=== PATIENT | male | born 1955 | race Caucasian/White ===

== ENCOUNTER 2019-01-07 08:17 | Inpatient (IN) | payer MEDICAID, SELFPAY ==
[2019-01-07] VITALS (24 sets, daily range): BP systolic 125–155; BP diastolic 70–92; PULSE 83–105; RESP 2–33; TEMP 36.4–37.2; O2SAT 92–99
--- NOTE | 2019-01-07 08:25 | DI.RAD_ITS ---
SYMPTOM/DIAGNOSIS: COUGH, SHORTNESS OF BREATH PORTABLE CHEST: Comparison is made with 27 Aug 2013. The cardiac and mediastinal contours have a normal appearance. The lungs are hyperinflated. There is minimal blunting at the costophrenic angles which appears chronic. No superimposed infiltrate, effusion or pulmonary edema is seen. IMPRESSION: COPD. No acute abnormality.
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
[2019-01-07] MEDS: Albuterol/Ipratropium 3 ML UPD VIAL UPD ×5 (08:31→23:23)
[2019-01-07 08:36] LABS: Abs Immature Grans 0.03 k/cumm (0.0-0.09); Absolute Eosinophil Count 1.01 k/cumm (0.0-0.7); Absolute Lymphocyte Count 2.58 k/cumm (1.2-3.4); Absolute Monocyte Count 0.97 k/cumm (0.11-0.7); Basophils % 0.5; Eosinophils % 9.1; HCT 43.5 % (40.0-50.0); HGB 13.1 g/dL (13.5-17.5); Immature Grans % 0.3; Lymphocytes % 23.3; Mean Corp. HGB Concentration 30.1 g/dL (32.0-36.0); Mean Corpuscular Hemoglobin 27.2 pg (27.0-33.0); Mean Corpuscular Volume 90.4 fL (80-95); Mean Platelet Volume 8.7 fL (8.0-11.0); Monocytes % 8.8; Platelet Count 362 x1000/uL (130-400); RBC 4.81 m/cumm (4.50-6.00); White Blood Cell Count 11.06 k/cumm (4.4-10.8)
[2019-01-07 08:38] LABS: Absolute Basophil Count 0.06 k/cumm (0.0-0.2); Absolute Neutrophil Count 6.41 k/cumm (1.2-6.7)
--- NOTE | 2019-01-07 08:45 | DI.VRAD_ITS ---
EXAM: XR Chest, 1 View EXAM DATE/TIME: 01/07/2019 8:39 AM CLINICAL HISTORY: 63 years old, male; Shortness of breath; Patient HX: SOB TECHNIQUE: Imaging protocol: XR of the chest, 1 view. COMPARISON: CR CHEST 2 VIEWS PA,LAT 08/27/2013 9:29 AM FINDINGS: Lungs: Hyperinflation compatible with COPD Pleural space: Unremarkable. No pleural effusion. No pneumothorax. Heart/Mediastinum: Unremarkable. No cardiomegaly. Bones/joints: Unremarkable. IMPRESSION: No acute findings COPD Dictated and Authenticated by: Daniel Arriaga MD. Ordering:ERNIE Uriostegui MD
[2019-01-07 09:01] LABS: ALT 17 U/L (12-78); AST < 5 U/L (15-37); Albumin 3.9 g/dL (3.4-5.0); Alkaline Phosphatase 108 U/L (46-116); BUN 17 mg/dL (7-18); Bilirubin, Total 0.2 mg/dL (0.2-1.0); CREATININE 0.56 mg/dL (0.70-1.30); Calcium 9.2 mg/dL (8.5-10.1); Chloride 106 mmol/L (98-107); Glucose 106 mg/dL (70-100); Magnesium 1.8 mg/dL (1.8-2.4); NT-proBNP 57 pg/mL; Potassium 3.9 mmol/L (3.5-5.1); Sodium 144 mmol/L (136-145); Total Protein 7.1 g/dL (6.4-8.2); Troponin I < 0.05 ng/mL (0.00-0.06)
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
[2019-01-07] MEDS: cefTRIAXone 1 GM/50 ML BAG IVPB (09:33)
--- NOTE | 2019-01-07 09:37 | NUR.NOTE ---
pt medicated as per mdo iv antibiotics infusing Nursing Note:
[2019-01-07] MEDS: Normal Saline 500 ML IV (11:15)
[2019-01-07] MEDS: Normal Saline Flush 10 ML SYR IVP ×4 (11:15→23:24)
[2019-01-07] MEDS: DOXYCYCLINE 100 MG in Normal Saline 100 ML IVPB ×2 (11:18→21:53)
[2019-01-07] MEDS: Enoxaparin 40 MG/0.4 ML SYR SC (13:18)
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
--- NOTE | 2019-01-07 14:11 | NUR.NOTE ---
Nursing Note: Patient was noted to be using a ProAir inhaler by respiratory therapy. When this RN asked the patient about the inhaler he became very defensive and angry stating that no one was going to take it from him and that he would before we got it to him. Clinical coordinator Stephanie Aponte RN notified of the above
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
[2019-01-07] MEDS: Benzonatate 200 MG CAP PO ×2 (15:00→21:53)
--- NOTE | 2019-01-07 15:02 | NUR.NOTE ---
Nursing Note: Patient told this RN that he will not use his Albuterol inhaler and that he will ring for an Albuterol updraft when he needs one. Patient states that he does not lie and therefore will not use the inhaler but that he will not allow this RN to take the inhaler from the room. Patient states it makes him feel better to have it at the bedside
[2019-01-07] MEDS: methylPREDNISolone SUCC 125 MG VIAL 80 MG IVP ×2 (15:28→23:24)
[2019-01-07] MEDS: guaiFENesin 600 MG TABCR PO (20:13)
[2019-01-07] MEDS: Normal Saline 500 ML 100 ML IV (21:53)
[2019-01-08] VITALS (10 sets, daily range): BP systolic 121–161; BP diastolic 64–85; PULSE 96–114; RESP 4–24; TEMP 36.3–37.4; O2SAT 93–97
[2019-01-08] MEDS: Benzonatate 200 MG CAP PO ×3 (05:53→22:37)
[2019-01-08] MEDS: Albuterol/Ipratropium 3 ML UPD VIAL UPD ×4 (05:53→23:39)
[2019-01-08 07:06] LABS: Abs Immature Grans 0.05 k/cumm (0.0-0.09); Absolute Monocyte Count 0.37 k/cumm (0.11-0.7); HCT 41.1 % (40.0-50.0); HGB 12.4 g/dL (13.5-17.5); Immature Grans % 0.4; Lymphocytes % 7.4; Mean Corp. HGB Concentration 30.2 g/dL (32.0-36.0); Mean Corpuscular Hemoglobin 26.8 pg (27.0-33.0); Monocytes % 2.7; Neutrophils % 89.5; Platelet Count 384 x1000/uL (130-400); RBC 4.62 m/cumm (4.50-6.00); RBC Distribution Width 13.8 % (11.8-14.1); White Blood Cell Count 13.72 k/cumm (4.4-10.8)
[2019-01-08 07:10] LABS: Absolute Lymphocyte Count 1.02 k/cumm (1.2-3.4); Absolute Neutrophil Count 12.28 k/cumm (1.2-6.7)
[2019-01-08 07:20] LABS: Anion Gap 4.9 mmol/L (3-11); BUN 23 mg/dL (7-18); CO2 33.1 mmol/L (21.0-32.0); CREATININE 0.59 mg/dL (0.70-1.30); Calcium 9.2 mg/dL (8.5-10.1); Chloride 103 mmol/L (98-107); Glucose 151 mg/dL (70-100); Magnesium 1.7 mg/dL (1.8-2.4); Potassium 3.8 mmol/L (3.5-5.1); Sodium 141 mmol/L (136-145)
[2019-01-08] MEDS: methylPREDNISolone SUCC 125 MG VIAL 80 MG IVP ×3 (08:10→23:39)
[2019-01-08] MEDS: Aspirin 325 MG TAB PO (08:11)
[2019-01-08] MEDS: guaiFENesin 600 MG TABCR PO ×2 (08:11→19:53)
[2019-01-08] MEDS: dilTIAZem CD 120 MG CAPCR PO (08:11)
[2019-01-08] MEDS: Pantoprazole 40 MG TABCR PO (08:11)
[2019-01-08] MEDS: MAGNESIUM SULFATE 2 GM/50 ML BAG IVPB (08:26)
[2019-01-08] MEDS: Albuterol 2.5 MG/3 ML INH SOLN VIAL UPD (09:43)
[2019-01-08] MEDS: DOXYCYCLINE 100 MG in Normal Saline 100 ML IVPB ×2 (10:39→22:37)
[2019-01-08] MEDS: Budesonide/Formoterol 160/4.5 6 GM 60 PUFF INH IH ×2 (11:09→19:54)
--- NOTE | 2019-01-08 12:27 | PHARADMIT ---
Addendum entered by Kallie Granados 01/19/19 15:24: Pharmacy Note Subjective Using Trilegy on and off, machine to be used at home Objective pseudomonas in sputum Assessment Levaquin day 2 today Zosyn day#3 Steroids IV on taper Plan possible discharge tomorrow Addendum entered by Javed Rocha III 01/18/19 13:00: Pharmacy Note Subjective RT has patient on trelegy mask system which seems to be working well and bringing up a lot of sputum. Sputum C&S pseudomonas sensitive to Zosyn & Levaquin Objective BP-186/89 HR-107 Lytes-OK H&H-up WBC-26.03 Assessment Levaquin started today Zosyn day#2, Daliresp ordered & started today. Steroids IV on taper. Plan CM working on discharge, may be tomorrow. Addendum entered by Katia Viramontes 01/17/19 15:52: Pharmacy Note Subjective Objective WBC 31.4 (steroid induced), AFebrile, BP/HR elevated, PCT negative Assessment Patient has been without Pt's own Daliresp for 9-10 days, MD would like it ordered for Friday, as we've seen increased use of it for end stage COPD patients Using Trilegy on and off Symbicort has been on Hold since 01/09 (Budesonide and Duonebs scheduled) Solumedrol IV decreased Plan will d/c home once on oral steroids,slow to recover Addendum entered by Javed Rocha III 01/14/19 10:29: Pharmacy Note Subjective Patient is slow to return to baseline, after acute COPD exacerbation. Objective VS-OK BP-167/89 SaO2-92% on 3L Lytes-OK WBC-20.88(on high dose steroids) Wgt-71.8kg BM today Assessment MD to begin steroid taper,(Solu-Medrol 60mgIV q6hrs presently) Plan Will return home, (difficult home situation) generally goes to [facility] for care. Original Note: Admission Pharmacy Clinical Review ACUTE EXACERBATION of COPD, CHRONIC HYPOXIA Code Status Full Code Current Weight Wgt-68.7 kg Renally Cleared and Narrow Therapeutic Index Meds CrCl~ 93mL/min Meds-OK QTc Value / Action Taken QTc-407 NA BP Control, Fever BP-125/64 Tmax- 36.9C Electrolytes reviewed Na- 141 K+3.8 Mag-1.7 DVT Prophylaxis ASA Opiate Usage / Scheduled Bowel Regimen Ordered No Yes Plt/SCr for Heparin / Enoxaparin Plts-384 SCr-0.59 INR for Warfarin NA H/H stable, WBC/Bands H&H- 12.4/41.1 WBC- 13.72 Antibiotic appropriateness Doxycycline, Cultures and Sensitivities Sputum- No bacteria Surgical ABX d/c within 24 hr NA DM control / Insulin Dosing BG-151 Heart Failure (Check EF%) (MEL's, B-Block, Diuretics) Diltiazem, IV to PO Switch No Home Meds Reviewed Yes Home Meds Not Ordered Elvie Delgado Subst. Symbicort per Comments Kanu Pfeiffer
--- NOTE | 2019-01-08 13:48 | CHAPLAIN ---
Dave was in bed, having lunch when I stopped in. He was pleasant, and responded to questions but was not interested in further discussion. When I explained who I was, he said, I don't need you yet.
--- NOTE | 2019-01-08 14:56 | PDOC.CMPRO ---
- If Service Date Differs Date of service: 01/08/19 Time of Service: 14:56 Care Management Progress Note S/O: CM met with Dave he is in bed dung visit he states his breathing feels somewhat better. CM contacted [facility] and spoke with RN patient does have highest needs choices for care and currently a adult family nursing home is being sought through [facility] services. Nichelle Carpenter will return on Friday, CM left contact with [facility] and requested follow up. No change in Dave's status today anticipate he will be discharged home when ready resume home health nursing and [facility]. A: Dave is a 63 year old male admitted with COPD P:Dave is being treated with IV steroids, and antibiotics. He will be discharged home when medically ready per provider. Anticipate increase in services at time of discharge if recommended. CM notified that he is currently inpatient and request call from community relations police lieutenant to follow up services in the community. CM to continue to provide support discharge planning and disposition.
--- NOTE | 2019-01-08 15:01 | CMPROGNOTE_ITS ---
- If Service Date Differs Date of service: 01/08/19 Time of Service: 14:56 Care Management Progress Note S/O: CM met with Dave he is in bed dung visit he states his breathing feels somewhat better. CM contacted [facility] and spoke with RN patient does have highest needs choices for care and currently a adult family [place] health care facility is being sought through [facility] services. Nichelle Carpenter will return on Friday, CM left contact with [facility] and requested follow up. No change in Dave's status today anticipate he will be discharged home when ready resume home health nursing and [facility]. A: Dave is a 63 year old male admitted with COPD P:Dave is being treated with IV steroids, and antibiotics. He will be discharged home when medically ready per provider. Anticipate increase in services at time of discharge if recommended. CM notified that he is currently inpatient and request call from community health program coordinator to follow up services in the community. CM to continue to provide support discharge planning and disposition.
--- NOTE | 2019-01-08 17:01 | W.PM.PROGNOT ---
Date of Service Date of service: 01/08/19 Time of Service: 17:01 Assessment and Plan (1) Acute exacerbation of chronic obstructive pulmonary disease (COPD): Current visit: Yes Status: Acute Patient has a history of severe COPD. Continue ceftriaxone/doxycycline (day 2), current dose of IV steroids, scheduled and prn nebs. Continue daliresp. Trelogy was substituted with symbicort. Sputum samples have been contaminated. (2) Chronic respiratory failure with hypoxia: Current visit: Yes Status: Chronic Better than baseline at this time. Will monitor with activity. (3) Hypertension: Current visit: Yes Status: Chronic Continue diltiazem (4) Hyperlipidemia: Current visit: Yes Status: Chronic F/u as outpatient. (5) History of cerebellar hemorrhage: Current visit: Yes Status: Chronic Will avoid chemical DVT ppx. (6) GERD (gastroesophageal reflux disease): Current visit: Yes Status: Chronic PPI ppx provided (7) Discharge planning issues: Current visit: Yes Status: Acute Full code (8) DVT prophylaxis: Current visit: Yes Status: Acute TEDs + SCDs Subjective Interval history since last seen: Feels better today. Denies dizziness, chest pain, still short of breath and started to wheeze today, no nausea or vomiting. Cough was productive of yellow sputum earlier today, but it has now stopped. Exam Narrative Exam Narrative: General: Very pleasant middle-aged male with a speech impediment, A&Ox3, sitting up in bed, very mildly tachypneic HEENT: EOMI, MMM Cardiovascular: RRR, no m/r/g Lungs: Wheezing on expiration B Gastrointestinal: abdomen is soft, nontender, nondistended Extremities: no e/c/c BLE's, 1+ pedal pulses B; R knee malformed Objective Objective Clinical Data: Abnormal lab results 01/08/19 01/08/19 Range/Units 06:35 06:35 WBC 13.72 H (4.4-10.8) k/cumm Hgb 12.4 L (13.5-17.5) g/dL MCH 26.8 L (27.0-33.0) pg MCHC 30.2 L (32.0-36.0) g/dL Absolute Neutrophils 12.28 H (1.2-6.7) k/cumm Absolute Lymphocytes 1.02 L (1.2-3.4) k/cumm Carbon Dioxide 33.1 H (21.0-32.0) mmol/L BUN 23 H (7-18) mg/dL Creatinine 0.59 L (0.70-1.30) mg/dL Glucose 151 H (70-100) mg/dL Magnesium 1.7 L (1.8-2.4) mg/dL Vital Signs Temperature 37.4 C 01/08/19 16:07 Temperature Source Tympanic 01/08/19 16:07 Pulse 107 H 01/08/19 16:07 Pulse Rhythm Regular 01/08/19 10:01 Pulse 97 H 01/07/19 08:40 Respiratory Rate 20 01/08/19 16:07 Respiratory Effort 01/08/19 10:01 Respiratory Depth Shallow 01/08/19 10:01 Respiratory Pattern Normal 01/08/19 10:01 Blood Pressure 161/82 H 01/08/19 16:07 Blood Pressure Mean 96 01/07/19 08:32 Blood Pressure Position Sitting 01/07/19 08:21 Pulse Oximetry 95 01/08/19 16:07 Respiratory End-tidal CO2 41 01/07/19 08:40 Oxygen Delivery Method Nasal Cannula 01/08/19 16:07 Oxygen Flow Rate 3 01/08/19 16:07 Pain Level 5 01/08/19 16:07 Intake & Output 01/07/19 01/08/19 01/08/19 23:59 11:59 23:59 Intake Total 760.011 / 780.011 240 / 580 340 / 580 Output Total 200 / 200 400 / 900 500 / 900 Balance 560.011 / 580.011 -160 / -320 -160 / -320 Weight 68.7 kg Intake: IV 280.011 / 300.011 100 / 100 Oral 480 / 480 240 / 480 240 / 480 Output: Urine 200 / 200 400 / 900 500 / 900 Other: Urine Color Pale Pale Yellow Yellow Yellow Urine Appearance Clear Clear Clear Urine Odor None Stool Size Small Stool Characteristics Soft Formed Voiding Methods Toilet Toilet Urinal Laboratory Results WBC 13.72 k/cumm (4.4-10.8) H 01/08/19 06:35 RBC 4.62 m/cumm (4.50-6.00) 01/08/19 06:35 Hgb 12.4 g/dL (13.5-17.5) L 01/08/19 06:35 Hct 41.1 % (40.0-50.0) 01/08/19 06:35 MCV 89.0 fL (80-95) 01/08/19 06:35 MCH 26.8 pg (27.0-33.0) L 01/08/19 06:35 MCHC 30.2 g/dL (32.0-36.0) L 01/08/19 06:35 RDW 13.8 % (11.8-14.1) 01/08/19 06:35 Plt Count 384 x1000/uL (130-400) 01/08/19 06:35 MPV 9.0 fL (8.0-11.0) 01/08/19 06:35 Immature Gran % 0.4 01/08/19 06:35 Neutrophils % 89.5 01/08/19 06:35 Lymphocytes % 7.4 01/08/19 06:35 Monocytes % 2.7 01/08/19 06:35 Eosinophils % 0.0 01/08/19 06:35 Basophils % 0.0 01/08/19 06:35 Absolute Neutrophils 12.28 k/cumm (1.2-6.7) H 01/08/19 06:35 Absolute Lymphocytes 1.02 k/cumm (1.2-3.4) L 01/08/19 06:35 Absolute Monocytes 0.37 k/cumm (0.11-0.7) 01/08/19 06:35 Absolute Eosinophils 0.00 k/cumm (0.0-0.7) 01/08/19 06:35 Absolute Basophils 0.00 k/cumm (0.0-0.2) 01/08/19 06:35 Sodium 141 mmol/L (136-145) 01/08/19 06:35 Potassium 3.8 mmol/L (3.5-5.1) 01/08/19 06:35 Chloride 103 mmol/L (98-107) 01/08/19 06:35 Carbon Dioxide 33.1 mmol/L (21.0-32.0) H 01/08/19 06:35 Anion Gap 4.9 mmol/L (3-11) 01/08/19 06:35 BUN 23 mg/dL (7-18) H 01/08/19 06:35 Creatinine 0.59 mg/dL (0.70-1.30) L 01/08/19 06:35 Estimated GFR/1.73 m2 >= 60.00 (mL/min/1.73m2) 01/08/19 06:35 Glucose 151 mg/dL (70-100) H 01/08/19 06:35 Calcium 9.2 mg/dL (8.5-10.1) 01/08/19 06:35 Magnesium 1.7 mg/dL (1.8-2.4) L 01/08/19 06:35 Total Bilirubin 0.2 mg/dL (0.2-1.0) 01/07/19 08:30 AST < 5 U/L (15-37) L 01/07/19 08:30 ALT 17 U/L (12-78) 01/07/19 08:30 Alkaline Phosphatase 108 U/L (46-116) 01/07/19 08:30 Troponin I < 0.05 ng/mL (0.00-0.06) 01/07/19 08:30 NT-Pro-B Natriuret Pep 57 pg/mL (-299) 01/07/19 08:30 Total Protein 7.1 g/dL (6.4-8.2) 01/07/19 08:30 Albumin 3.9 g/dL (3.4-5.0) 01/07/19 08:30
[2019-01-08] MEDS: cefTRIAXone 1 GM/50 ML BAG IVPB (18:45)
[2019-01-08] MEDS: Normal Saline Flush 10 ML SYR IVP ×2 (22:37→23:39)
[2019-01-09] VITALS (9 sets, daily range): BP systolic 113–145; BP diastolic 67–83; PULSE 87–102; RESP 2–22; TEMP 36.2–37; O2SAT 95–99
[2019-01-09] MEDS: Albuterol/Ipratropium 3 ML UPD VIAL UPD ×3 (05:39→19:41)
[2019-01-09] MEDS: Benzonatate 200 MG CAP PO ×3 (05:40→22:08)
[2019-01-09] MEDS: Aspirin 325 MG TAB PO (07:48)
[2019-01-09] MEDS: methylPREDNISolone SUCC 125 MG VIAL 80 MG IVP (07:48)
[2019-01-09] MEDS: Pantoprazole 40 MG TABCR PO (07:48)
[2019-01-09] MEDS: dilTIAZem CD 120 MG CAPCR PO (07:48)
[2019-01-09] MEDS: guaiFENesin 600 MG TABCR PO ×2 (07:48→19:40)
[2019-01-09 07:52] LABS: Abs Immature Grans 0.09 k/cumm (0.0-0.09); HCT 40.5 % (40.0-50.0); HGB 12.5 g/dL (13.5-17.5); Immature Grans % 0.4; Lymphocytes % 4.6; Mean Corp. HGB Concentration 30.9 g/dL (32.0-36.0); Mean Corpuscular Hemoglobin 27.3 pg (27.0-33.0); Mean Corpuscular Volume 88.4 fL (80-95); Mean Platelet Volume 9.4 fL (8.0-11.0); Monocytes % 3.5; Neutrophils % 91.5; Platelet Count 379 x1000/uL (130-400); RBC 4.58 m/cumm (4.50-6.00); RBC Distribution Width 14.2 % (11.8-14.1); White Blood Cell Count 23.52 k/cumm (4.4-10.8)
[2019-01-09 08:02] LABS: Anion Gap 6.3 mmol/L (3-11); BUN 26 mg/dL (7-18); CO2 32.7 mmol/L (21.0-32.0); CREATININE 0.81 mg/dL (0.70-1.30); Calcium 8.9 mg/dL (8.5-10.1); Chloride 103 mmol/L (98-107); Glucose 153 mg/dL (70-100); Magnesium 1.8 mg/dL (1.8-2.4); Potassium 3.9 mmol/L (3.5-5.1); Sodium 142 mmol/L (136-145)
[2019-01-09 08:34] LABS: Absolute Lymphocyte Count 1.08 k/cumm (1.2-3.4); Absolute Monocyte Count 0.82 k/cumm (0.11-0.7); Absolute Neutrophil Count 21.52 k/cumm (1.2-6.7)
[2019-01-09 08:36] LABS: Diff Comment Agrees w/ Instrument; RBC Morphology Normal
[2019-01-09] MEDS: Budesonide/Formoterol 160/4.5 6 GM 60 PUFF INH IH (09:48)
[2019-01-09] MEDS: DOXYCYCLINE 100 MG in Normal Saline 100 ML IVPB (09:52)
[2019-01-09] MEDS: Potassium Chloride 10 MEQ TABCR PO (11:15)
[2019-01-09] MEDS: levoFLOXacin 500 MG TAB PO (11:15)
[2019-01-09] MEDS: Magnesium Oxide 400 MG TAB PO (11:15)
[2019-01-09] MEDS: methylPREDNISolone SUCC 40 MG VIAL IVP (15:10)
--- NOTE | 2019-01-09 15:32 | PDOC.CMPRO ---
- If Service Date Differs Date of service: 01/09/19 Time of Service: 15:32 Care Management Progress Note S/O: CM met with Dave he continues to have some shortness of breath. He does not feel he is ready to be discharged home today. He states his home situation is not suitable for him he has been working with [facility] highest needs to obtain new living situation. He does not get a long with his brother in law and feels that he cant trust anyone. CM is awaiting a call from planning and analysis manager to determine progress toward housing. A: Dave is a 63 year old male admitted with COPD P:Dave is being treated with IV steroids, oral antibiotics. He will be discharged home when medically ready per provider. Anticipate increase in services at time of discharge if recommended. CM notified that he is currently inpatient and request call from community services manager to follow up services in the community. CM to continue to provide support discharge planning and disposition. RCT to transport per pt.
--- NOTE | 2019-01-09 15:37 | CMPROGNOTE_ITS ---
- If Service Date Differs Date of service: 01/09/19 Time of Service: 15:32 Care Management Progress Note S/O: CM met with Dave he continues to have some shortness of breath. He does not feel he is ready to be discharged home today. He states his home situation is not suitable for him he has been working with [facility] highest needs to obtain new living situation. He does not get a long with his brother in law and feels that he cant trust anyone. CM is awaiting a call from reports analysis manager to determine progress toward housing. A: Dave is a 63 year old male admitted with COPD P:Dave is being treated with IV steroids, oral antibiotics. He will be discharged home when medically ready per provider. Anticipate increase in services at time of discharge if recommended. CM notified that he is currently inpatient and request call from community health advocate to follow up services in the community. CM to continue to provide support discharge planning and disposition. RCT to transport per pt.
--- NOTE | 2019-01-09 16:44 | W.PM.PROGNOT ---
Date of Service Date of service: 01/09/19 Time of Service: 16:44 Assessment and Plan (1) Acute exacerbation of chronic obstructive pulmonary disease (COPD): Current visit: Yes Status: Acute Continue antibiotics, but change to single agent. Given negative CXR will dose Levofloxacin for acute exacerbation of chronic bronchitis - currently day #3 of antibiotics. Continue Steroids and decrease dose today. Continue inhaler therapy, nebs, supplemental O2 - of note, current oxygen need appears less than reported baseline, with patient reporting improvement in his symptoms, but not yet at baseline. (2) Hypertension: Current visit: Yes Status: Chronic Continue Diltiazem. (3) GERD (gastroesophageal reflux disease): Current visit: Yes Status: Chronic On PPI therapy. (4) DVT prophylaxis: Current visit: Yes Status: Acute On SCDs, TEDs given history of Celerebllar Hemorrhage. (5) Advance directive on file: Current visit: Yes Status: Acute Full Code. Subjective Interval history since last seen: 63 year old man with a prior history of Oxygen dependent COPD, admitted from [facility] Emergency Department with a diagnosis of acute COPD Exacerbation. Mr. Alston has a past Medical History significant for severe COPD, with chronic hypoxic respiratory failure on a reported 5L of O2 at home. He also has a history of CAD with prior MN, TIA, and Cerebellar Hemorrhage. The patient normally receives his medical care in [facility], but was brought to [facility] by ambulance due to worsening dyspnea over the course of the prior month. He also reported a cough productive of white sputum and subjective fevers. The patient was admitted for treatment of likely acute exacerbation of his underlying COPD. This morning Mr. Alston repots overall improvement in his symptoms, not yet at baseline. No overnight events reports. Remains afebrile. Exam Narrative Exam Narrative: General: Patient appears comfortable, AAOX3, NAD. Chronically reported impaired speech noted. Neck: Supple CV: Regular, nontachycardic, S1S2, No rubs, murmurs, or gallops. Pulmonary: Significantly diminished breath sounds, mild left basilar crackles, no rhonchi. Minimal wheezing. Abdomen: + Bowel Sounds, soft, nontender, nondistended Vascular: No lower extremity edema Psych: Normal mood and affect. Objective Objective Clinical Data: Abnormal lab results 01/09/19 01/09/19 Range/Units 07:05 07:05 WBC 23.52 H D (4.4-10.8) k/cumm Hgb 12.5 L (13.5-17.5) g/dL MCHC 30.9 L (32.0-36.0) g/dL RDW 14.2 H (11.8-14.1) % Absolute Neutrophils 21.52 H (1.2-6.7) k/cumm Absolute Lymphocytes 1.08 L (1.2-3.4) k/cumm Absolute Monocytes 0.82 H (0.11-0.7) k/cumm Carbon Dioxide 32.7 H (21.0-32.0) mmol/L BUN 26 H (7-18) mg/dL Glucose 153 H (70-100) mg/dL Vital Signs Temperature 36.7 C 01/09/19 15:35 Temperature Source Tympanic 01/09/19 15:35 Pulse 90 01/09/19 15:35 Pulse Rhythm Regular 01/09/19 08:05 Pulse 97 H 01/07/19 08:40 Respiratory Rate 20 01/09/19 15:35 Respiratory Effort 01/09/19 08:05 Respiratory Depth Shallow 01/09/19 08:05 Respiratory Pattern Normal 01/09/19 08:05 Blood Pressure 139/82 01/09/19 15:35 Blood Pressure Mean 96 01/07/19 08:32 Blood Pressure Position Sitting 01/07/19 08:21 Pulse Oximetry 96 01/09/19 15:35 Respiratory End-tidal CO2 41 01/07/19 08:40 Oxygen Delivery Method Nasal Cannula 01/09/19 15:35 Oxygen Flow Rate 3 01/09/19 15:35 Pain Level 0 01/08/19 19:28 Intake & Output 01/08/19 01/09/19 01/09/19 23:59 11:59 23:59 Intake Total 1020 / 1310 350 / 350 Output Total 975 / 1375 350 / 350 Balance 45 / -65 0 / 0 Weight 67.4 kg Intake: IV 300 / 350 100 / 100 Oral 720 / 960 250 / 250 Output: Urine 975 / 1375 350 / 350 Other: Urine Color Yellow Yellow Urine Appearance Clear Clear Urine Odor Normal Normal Voiding Methods Urinal Urinal Laboratory Results WBC 23.52 k/cumm (4.4-10.8) H D 01/09/19 07:05 RBC 4.58 m/cumm (4.50-6.00) 01/09/19 07:05 Hgb 12.5 g/dL (13.5-17.5) L 01/09/19 07:05 Hct 40.5 % (40.0-50.0) 01/09/19 07:05 MCV 88.4 fL (80-95) 01/09/19 07:05 MCH 27.3 pg (27.0-33.0) 01/09/19 07:05 MCHC 30.9 g/dL (32.0-36.0) L 01/09/19 07:05 RDW 14.2 % (11.8-14.1) H 01/09/19 07:05 Plt Count 379 x1000/uL (130-400) 01/09/19 07:05 MPV 9.4 fL (8.0-11.0) 01/09/19 07:05 Immature Gran % 0.4 01/09/19 07:05 Neutrophils % 91.5 01/09/19 07:05 Lymphocytes % 4.6 01/09/19 07:05 Monocytes % 3.5 01/09/19 07:05 Eosinophils % 0.0 01/09/19 07:05 Basophils % 0.0 01/09/19 07:05 Absolute Neutrophils 21.52 k/cumm (1.2-6.7) H 01/09/19 07:05 Absolute Lymphocytes 1.08 k/cumm (1.2-3.4) L 01/09/19 07:05 Absolute Monocytes 0.82 k/cumm (0.11-0.7) H 01/09/19 07:05 Absolute Eosinophils 0.00 k/cumm (0.0-0.7) 01/09/19 07:05 Absolute Basophils 0.00 k/cumm (0.0-0.2) 01/09/19 07:05 Differential Comment Agrees w/ instrument 01/09/19 07:05 RBC Morphology Normal 01/09/19 07:05 Sodium 142 mmol/L (136-145) 01/09/19 07:05 Potassium 3.9 mmol/L (3.5-5.1) 01/09/19 07:05 Chloride 103 mmol/L (98-107) 01/09/19 07:05 Carbon Dioxide 32.7 mmol/L (21.0-32.0) H 01/09/19 07:05 Anion Gap 6.3 mmol/L (3-11) 01/09/19 07:05 BUN 26 mg/dL (7-18) H 01/09/19 07:05 Creatinine 0.81 mg/dL (0.70-1.30) 01/09/19 07:05 Estimated GFR/1.73 m2 >= 60.00 (mL/min/1.73m2) 01/09/19 07:05 Glucose 153 mg/dL (70-100) H 01/09/19 07:05 Calcium 8.9 mg/dL (8.5-10.1) 01/09/19 07:05 Magnesium 1.8 mg/dL (1.8-2.4) 01/09/19 07:05 Total Bilirubin 0.2 mg/dL (0.2-1.0) 01/07/19 08:30 AST < 5 U/L (15-37) L 01/07/19 08:30 ALT 17 U/L (12-78) 01/07/19 08:30 Alkaline Phosphatase 108 U/L (46-116) 01/07/19 08:30 Troponin I < 0.05 ng/mL (0.00-0.06) 01/07/19 08:30 NT-Pro-B Natriuret Pep 57 pg/mL (-299) 01/07/19 08:30 Total Protein 7.1 g/dL (6.4-8.2) 01/07/19 08:30 Albumin 3.9 g/dL (3.4-5.0) 01/07/19 08:30
--- NOTE | 2019-01-09 16:47 | PGE_ITS ---
Date of Service Date of service: 01/09/19 Time of Service: 16:44 Assessment and Plan (1) Acute exacerbation of chronic obstructive pulmonary disease (COPD): Current visit: Yes Status: Acute Continue antibiotics, but change to single agent. Given negative CXR will dose Levofloxacin for acute exacerbation of chronic bronchitis - currently day #3 of antibiotics. Continue Steroids and decrease dose today. Continue inhaler therapy, nebs, supplemental O2 - of note, current oxygen need appears less than reported baseline, with patient reporting improvement in his symptoms, but not yet at baseline. (2) Hypertension: Current visit: Yes Status: Chronic Continue Diltiazem. (3) GERD (gastroesophageal reflux disease): Current visit: Yes Status: Chronic On PPI therapy. (4) DVT prophylaxis: Current visit: Yes Status: Acute On SCDs, TEDs given history of Celerebllar Hemorrhage. (5) Advance directive on file: Current visit: Yes Status: Acute Full Code. Subjective Interval history since last seen: 63 year old man with a prior history of Oxygen dependent COPD, admitted from [facility] Emergency Department with a diagnosis of acute COPD Exacerbation. Mr. Alston has a past Medical History significant for severe COPD, with chronic hypoxic respiratory failure on a reported 5L of O2 at home. He also has a history of CAD with prior CO, TIA, and Cerebellar Hemorrhage. The patient normally receives his medical care in [facility], but was brought to [facility] by ambulance due to worsening dyspnea over the course of the prior month. He also reported a cough productive of white sputum and subjective fevers. The patient was admitted for treatment of likely acute exacerbation of his underlying COPD. This morning Mr. Alston repots overall improvement in his symptoms, not yet at baseline. No overnight events reports. Remains afebrile. Exam Narrative Exam Narrative: General: Patient appears comfortable, AAOX3, NAD. Chronically reported impaired speech noted. Neck: Supple CV: Regular, nontachycardic, S1S2, No rubs, murmurs, or gallops. Pulmonary: Significantly diminished breath sounds, mild left basilar crackles, no rhonchi. Minimal wheezing. Abdomen: + Bowel Sounds, soft, nontender, nondistended Vascular: No lower extremity edema Psych: Normal mood and affect. Objective Objective Clinical Data: Abnormal lab results 01/09/19 01/09/19 Range/Units 07:05 07:05 WBC 23.52 H D (4.4-10.8) k/cumm Hgb 12.5 L (13.5-17.5) g/dL MCHC 30.9 L (32.0-36.0) g/dL RDW 14.2 H (11.8-14.1) % Absolute Neutrophils 21.52 H (1.2-6.7) k/cumm Absolute Lymphocytes 1.08 L (1.2-3.4) k/cumm Absolute Monocytes 0.82 H (0.11-0.7) k/cumm Carbon Dioxide 32.7 H (21.0-32.0) mmol/L BUN 26 H (7-18) mg/dL Glucose 153 H (70-100) mg/dL Vital Signs Temperature 36.7 C 01/09/19 15:35 Temperature Source Tympanic 01/09/19 15:35 Pulse 90 01/09/19 15:35 Pulse Rhythm Regular 01/09/19 08:05 Pulse 97 H 01/07/19 08:40 Respiratory Rate 20 01/09/19 15:35 Respiratory Effort 01/09/19 08:05 Respiratory Depth Shallow 01/09/19 08:05 Respiratory Pattern Normal 01/09/19 08:05 Blood Pressure 139/82 01/09/19 15:35 Blood Pressure Mean 96 01/07/19 08:32 Blood Pressure Position Sitting 01/07/19 08:21 Pulse Oximetry 96 01/09/19 15:35 Respiratory End-tidal CO2 41 01/07/19 08:40 Oxygen Delivery Method Nasal Cannula 01/09/19 15:35 Oxygen Flow Rate 3 01/09/19 15:35 Pain Level 0 01/08/19 19:28 Intake & Output 01/08/19 01/09/19 01/09/19 23:59 11:59 23:59 Intake Total 1020 / 1310 350 / 350 Output Total 975 / 1375 350 / 350 Balance 45 / -65 0 / 0 Weight 67.4 kg Intake: IV 300 / 350 100 / 100 Oral 720 / 960 250 / 250 Output: Urine 975 / 1375 350 / 350 Other: Urine Color Yellow Yellow Urine Appearance Clear Clear Urine Odor Normal Normal Voiding Methods Urinal Urinal Laboratory Results WBC 23.52 k/cumm (4.4-10.8) H D 01/09/19 07:05 RBC 4.58 m/cumm (4.50-6.00) 01/09/19 07:05 Hgb 12.5 g/dL (13.5-17.5) L 01/09/19 07:05 Hct 40.5 % (40.0-50.0) 01/09/19 07:05 MCV 88.4 fL (80-95) 01/09/19 07:05 MCH 27.3 pg (27.0-33.0) 01/09/19 07:05 MCHC 30.9 g/dL (32.0-36.0) L 01/09/19 07:05 RDW 14.2 % (11.8-14.1) H 01/09/19 07:05 Plt Count 379 x1000/uL (130-400) 01/09/19 07:05 MPV 9.4 fL (8.0-11.0) 01/09/19 07:05 Immature Gran % 0.4 01/09/19 07:05 Neutrophils % 91.5 01/09/19 07:05 Lymphocytes % 4.6 01/09/19 07:05 Monocytes % 3.5 01/09/19 07:05 Eosinophils % 0.0 01/09/19 07:05 Basophils % 0.0 01/09/19 07:05 Absolute Neutrophils 21.52 k/cumm (1.2-6.7) H 01/09/19 07:05 Absolute Lymphocytes 1.08 k/cumm (1.2-3.4) L 01/09/19 07:05 Absolute Monocytes 0.82 k/cumm (0.11-0.7) H 01/09/19 07:05 Absolute Eosinophils 0.00 k/cumm (0.0-0.7) 01/09/19 07:05 Absolute Basophils 0.00 k/cumm (0.0-0.2) 01/09/19 07:05 Differential Comment Agrees w/ instrument 01/09/19 07:05 RBC Morphology Normal 01/09/19 07:05 Sodium 142 mmol/L (136-145) 01/09/19 07:05 Potassium 3.9 mmol/L (3.5-5.1) 01/09/19 07:05 Chloride 103 mmol/L (98-107) 01/09/19 07:05 Carbon Dioxide 32.7 mmol/L (21.0-32.0) H 01/09/19 07:05 Anion Gap 6.3 mmol/L (3-11) 01/09/19 07:05 BUN 26 mg/dL (7-18) H 01/09/19 07:05 Creatinine 0.81 mg/dL (0.70-1.30) 01/09/19 07:05 Estimated GFR/1.73 m2 >= 60.00 (mL/min/1.73m2) 01/09/19 07:05 Glucose 153 mg/dL (70-100) H 01/09/19 07:05 Calcium 8.9 mg/dL (8.5-10.1) 01/09/19 07:05 Magnesium 1.8 mg/dL (1.8-2.4) 01/09/19 07:05 Total Bilirubin 0.2 mg/dL (0.2-1.0) 01/07/19 08:30 AST < 5 U/L (15-37) L 01/07/19 08:30 ALT 17 U/L (12-78) 01/07/19 08:30 Alkaline Phosphatase 108 U/L (46-116) 01/07/19 08:30 Troponin I < 0.05 ng/mL (0.00-0.06) 01/07/19 08:30 NT-Pro-B Natriuret Pep 57 pg/mL (-299) 01/07/19 08:30 Total Protein 7.1 g/dL (6.4-8.2) 01/07/19 08:30 Albumin 3.9 g/dL (3.4-5.0) 01/07/19 08:30
[2019-01-09] MEDS: Budesonide 0.5 MG/2 ML UPD VIAL UPD (19:41)
[2019-01-10] VITALS (13 sets, daily range): BP systolic 129–156; BP diastolic 75–91; PULSE 77–101; RESP 2–26; TEMP 36.4–37; O2SAT 93–98
[2019-01-10] MEDS: methylPREDNISolone SUCC 40 MG VIAL IVP ×3 (00:28→15:44)
[2019-01-10] MEDS: Normal Saline Flush 10 ML SYR IVP ×3 (00:28→15:45)
[2019-01-10] MEDS: Benzonatate 200 MG CAP PO ×3 (05:56→21:59)
[2019-01-10] MEDS: levoFLOXacin 500 MG TAB PO (07:27)
[2019-01-10] MEDS: dilTIAZem CD 120 MG CAPCR PO (07:27)
[2019-01-10] MEDS: Aspirin 325 MG TAB PO (07:27)
[2019-01-10] MEDS: guaiFENesin 600 MG TABCR PO ×2 (07:27→19:32)
[2019-01-10] MEDS: Pantoprazole 40 MG TABCR PO (07:28)
[2019-01-10 07:31] LABS: Abs Immature Grans 0.15 k/cumm (0.0-0.09); Absolute Lymphocyte Count 1.58 k/cumm (1.2-3.4); Absolute Monocyte Count 1.08 k/cumm (0.11-0.7); HCT 43.3 % (40.0-50.0); HGB 13.2 g/dL (13.5-17.5); Immature Grans % 0.6; Mean Corp. HGB Concentration 30.5 g/dL (32.0-36.0); Mean Corpuscular Hemoglobin 27.2 pg (27.0-33.0); Mean Corpuscular Volume 89.3 fL (80-95); Mean Platelet Volume 9.2 fL (8.0-11.0); Monocytes % 4.1; Neutrophils % 89.3; Platelet Count 426 x1000/uL (130-400); RBC 4.85 m/cumm (4.50-6.00); RBC Distribution Width 14.4 % (11.8-14.1)
[2019-01-10 07:52] LABS: Anion Gap 4.5 mmol/L (3-11); BUN 24 mg/dL (7-18); CO2 34.5 mmol/L (21.0-32.0); CREATININE 0.69 mg/dL (0.70-1.30); Calcium 9.1 mg/dL (8.5-10.1); Chloride 102 mmol/L (98-107); Glucose 151 mg/dL (70-100); Sodium 141 mmol/L (136-145)
[2019-01-10 08:02] LABS: Absolute Neutrophil Count 23.45 k/cumm (1.2-6.7); Diff Comment Diff Reviewed; White Blood Cell Count 26.26 k/cumm (4.4-10.8)
[2019-01-10] MEDS: Albuterol/Ipratropium 3 ML UPD VIAL UPD ×3 (08:22→19:32)
[2019-01-10] MEDS: Budesonide 0.5 MG/2 ML UPD VIAL UPD ×2 (08:26→19:32)
--- NOTE | 2019-01-10 13:56 | PDOC.CMPRO ---
- If Service Date Differs Date of service: 01/10/19 Time of Service: 13:56 Care Management Progress Note S/O: CM met with Dave he continues to have some shortness of breath. He does not feel he is ready to be discharged home today. He remains acute for IV steroids and continued respiratory support and will be discharged home when he becomes nearer to baseline breathing status. A: Dave is a 63 year old male admitted with COPD P:Dave is being treated with IV steroids, oral antibiotics. He will be discharged home when medically ready per provider. Anticipate increase in services at time of discharge if recommended. CM notified that he is currently inpatient and request call from community health navigator to follow up services in the community. CM to continue to provide support discharge planning and disposition. RCT to transport per pt.
--- NOTE | 2019-01-10 14:25 | PGE_ITS ---
Date of Service Date of service: 01/10/19 Time of Service: 14:23 Assessment and Plan (1) Acute exacerbation of chronic obstructive pulmonary disease (COPD): Current visit: Yes Status: Acute Continue antibiotics, but changed to single agent. Given negative CXR will dose Levofloxacin for acute exacerbation of chronic bronchitis - currently day #4 of antibiotics. Continue Steroids, decreased dose on 01/09. Continue duonebs, Budesonide, and supplemental O2 - of note, current oxygen need appears less than reported baseline, with patient reporting improvement in his symptoms, but not yet at baseline. (2) Hypertension: Current visit: Yes Status: Chronic Continue Diltiazem. (3) GERD (gastroesophageal reflux disease): Current visit: Yes Status: Chronic On PPI therapy. (4) DVT prophylaxis: Current visit: Yes Status: Acute On SCDs, TEDs given history of Celerebllar Hemorrhage. (5) Advance directive on file: Current visit: Yes Status: Acute Full Code. Subjective Interval history since last seen: 63 year old man with a prior history of Oxygen dependent COPD, admitted from [facility] Emergency Department with a diagnosis of acute COPD Exacerbation. Mr. Alston has a past Medical History significant for severe COPD, with chronic hypoxic respiratory failure on a reported 5L of O2 at home. He also has a history of CAD with prior MN, TIA, and Cerebellar Hemorrhage. The patient normally receives his medical care in [facility], but was brought to [facility] by ambulance due to worsening dyspnea over the course of the prior month. He also reported a cough productive of white sputum and subjective fevers. The patient was admitted for treatment of likely acute exacerbation of his underlying COPD. This morning Mr. Alston reports overall improvement in his symptoms, slightly better than yesterday, but not yet at baseline. His WBC continues to climb and is significantly elevated, but he remains afebrile and on IV Steroids. No overnight events reports. Exam Narrative Exam Narrative: General: Patient appears comfortable, AAOX3, NAD. Chronically reported impaired speech noted. Neck: Supple CV: Regular, nontachycardic, S1S2, No rubs, murmurs, or gallops. Pulmonary: Significantly diminished breath sounds, mild left basilar crackles, no rhonchi. Minimal wheezing. Abdomen: + Bowel Sounds, soft, nontender, nondistended Vascular: No lower extremity edema Psych: Normal mood and affect. Objective Objective Clinical Data: Abnormal lab results 01/10/19 01/10/19 Range/Units 06:50 06:50 WBC 26.26 H* (4.4-10.8) k/cumm Hgb 13.2 L (13.5-17.5) g/dL MCHC 30.5 L (32.0-36.0) g/dL RDW 14.4 H (11.8-14.1) % Plt Count 426 H (130-400) x1000/uL Absolute Neutrophils 23.45 H (1.2-6.7) k/cumm Absolute Monocytes 1.08 H (0.11-0.7) k/cumm Carbon Dioxide 34.5 H (21.0-32.0) mmol/L BUN 24 H (7-18) mg/dL Creatinine 0.69 L (0.70-1.30) mg/dL Glucose 151 H (70-100) mg/dL Vital Signs Temperature 36.6 C 01/10/19 12:02 Temperature Source Tympanic 01/10/19 12:02 Pulse 101 H 01/10/19 12:02 Pulse Rhythm Regular 01/10/19 07:20 Pulse 97 H 01/07/19 08:40 Respiratory Rate 21 01/10/19 12:02 Respiratory Effort 01/10/19 07:20 Respiratory Depth Shallow 01/10/19 07:20 Respiratory Pattern Normal 01/10/19 07:20 Blood Pressure 141/88 H 01/10/19 12:02 Blood Pressure Mean 96 01/07/19 08:32 Blood Pressure Position Sitting 01/07/19 08:21 Pulse Oximetry 96 01/10/19 12:02 Respiratory End-tidal CO2 41 01/07/19 08:40 Oxygen Delivery Method Nasal Cannula 01/10/19 12:02 Oxygen Flow Rate 4 01/10/19 12:02 Pain Level 0 01/08/19 19:28 Comment 01/10/19 08:56 Intake & Output 01/09/19 01/10/19 01/10/19 23:59 11:59 23:59 Intake Total 240 / 590 260 / 500 240 / 500 Output Total 900 / 1250 650 / 650 Balance -660 / -660 -390 / -150 240 / -150 Weight 69.4 kg Intake: IV Oral 240 / 490 240 / 480 240 / 480 Output: Urine 900 / 1250 650 / 650 Other: Urine Color Yellow Yellow Urine Appearance Clear Clear Urine Odor Normal Comment Voids x2. Stool Size Moderate Stool Characteristics Soft Formed Brown Voiding Methods Urinal Urinal Laboratory Results WBC 26.26 k/cumm (4.4-10.8) H* 01/10/19 06:50 RBC 4.85 m/cumm (4.50-6.00) 01/10/19 06:50 Hgb 13.2 g/dL (13.5-17.5) L 01/10/19 06:50 Hct 43.3 % (40.0-50.0) 01/10/19 06:50 MCV 89.3 fL (80-95) 01/10/19 06:50 MCH 27.2 pg (27.0-33.0) 01/10/19 06:50 MCHC 30.5 g/dL (32.0-36.0) L 01/10/19 06:50 RDW 14.4 % (11.8-14.1) H 01/10/19 06:50 Plt Count 426 x1000/uL (130-400) H 01/10/19 06:50 MPV 9.2 fL (8.0-11.0) 01/10/19 06:50 Immature Gran % 0.6 01/10/19 06:50 Neutrophils % 89.3 01/10/19 06:50 Lymphocytes % 6.0 01/10/19 06:50 Monocytes % 4.1 01/10/19 06:50 Eosinophils % 0.0 01/10/19 06:50 Basophils % 0.0 01/10/19 06:50 Absolute Neutrophils 23.45 k/cumm (1.2-6.7) H 01/10/19 06:50 Absolute Lymphocytes 1.58 k/cumm (1.2-3.4) 01/10/19 06:50 Absolute Monocytes 1.08 k/cumm (0.11-0.7) H 01/10/19 06:50 Absolute Eosinophils 0.00 k/cumm (0.0-0.7) 01/10/19 06:50 Absolute Basophils 0.00 k/cumm (0.0-0.2) 01/10/19 06:50 Differential Comment Diff reviewed 01/10/19 06:50 RBC Morphology Normal 01/09/19 07:05 Sodium 141 mmol/L (136-145) 01/10/19 06:50 Potassium 4.0 mmol/L (3.5-5.1) 01/10/19 06:50 Chloride 102 mmol/L (98-107) 01/10/19 06:50 Carbon Dioxide 34.5 mmol/L (21.0-32.0) H 01/10/19 06:50 Anion Gap 4.5 mmol/L (3-11) 01/10/19 06:50 BUN 24 mg/dL (7-18) H 01/10/19 06:50 Creatinine 0.69 mg/dL (0.70-1.30) L 01/10/19 06:50 Estimated GFR/1.73 m2 >= 60.00 (mL/min/1.73m2) 01/10/19 06:50 Glucose 151 mg/dL (70-100) H 01/10/19 06:50 Calcium 9.1 mg/dL (8.5-10.1) 01/10/19 06:50 Magnesium 2.0 mg/dL (1.8-2.4) 01/10/19 06:50 Total Bilirubin 0.2 mg/dL (0.2-1.0) 01/07/19 08:30 AST < 5 U/L (15-37) L 01/07/19 08:30 ALT 17 U/L (12-78) 01/07/19 08:30 Alkaline Phosphatase 108 U/L (46-116) 01/07/19 08:30 Troponin I < 0.05 ng/mL (0.00-0.06) 01/07/19 08:30 NT-Pro-B Natriuret Pep 57 pg/mL (-299) 01/07/19 08:30 Total Protein 7.1 g/dL (6.4-8.2) 01/07/19 08:30 Albumin 3.9 g/dL (3.4-5.0) 01/07/19 08:30
[2019-01-11] VITALS (11 sets, daily range): BP systolic 134–162; BP diastolic 81–86; PULSE 83–106; RESP 4–20; TEMP 36.6–37.2; O2SAT 94–98
[2019-01-11] MEDS: methylPREDNISolone SUCC 40 MG VIAL IVP ×4 (00:11→19:19)
[2019-01-11] MEDS: Normal Saline Flush 10 ML SYR IVP ×4 (00:11→19:20)
[2019-01-11] MEDS: Albuterol/Ipratropium 3 ML UPD VIAL UPD ×6 (02:05→23:53)
[2019-01-11] MEDS: Benzonatate 200 MG CAP PO ×3 (05:53→22:04)
[2019-01-11] MEDS: Budesonide 0.5 MG/2 ML UPD VIAL UPD ×2 (07:34→19:19)
[2019-01-11] MEDS: levoFLOXacin 500 MG TAB PO (08:09)
[2019-01-11] MEDS: Pantoprazole 40 MG TABCR PO (08:09)
[2019-01-11] MEDS: dilTIAZem CD 120 MG CAPCR PO (08:09)
[2019-01-11] MEDS: Aspirin 325 MG TAB PO (08:09)
[2019-01-11] MEDS: guaiFENesin 600 MG TABCR PO ×2 (08:09→19:19)
[2019-01-11 09:31] LABS: Abs Immature Grans 0.14 k/cumm (0.0-0.09); Absolute Lymphocyte Count 0.88 k/cumm (1.2-3.4); Absolute Monocyte Count 0.86 k/cumm (0.11-0.7); Basophils % 0.1; HCT 42.3 % (40.0-50.0); HGB 12.6 g/dL (13.5-17.5); Immature Grans % 0.9; Lymphocytes % 5.4; Mean Corp. HGB Concentration 29.8 g/dL (32.0-36.0); Mean Corpuscular Hemoglobin 26.6 pg (27.0-33.0); Mean Corpuscular Volume 89.4 fL (80-95); Mean Platelet Volume 9.3 fL (8.0-11.0); Monocytes % 5.3; Neutrophils % 88.3; Platelet Count 361 x1000/uL (130-400); RBC 4.73 m/cumm (4.50-6.00); RBC Distribution Width 14.2 % (11.8-14.1)
[2019-01-11 09:32] LABS: Absolute Basophil Count 0.02 k/cumm (0.0-0.2); Absolute Neutrophil Count 14.39 k/cumm (1.2-6.7)
[2019-01-11 09:45] LABS: Anion Gap 5.1 mmol/L (3-11); BUN 27 mg/dL (7-18); CO2 34.9 mmol/L (21.0-32.0); CREATININE 0.56 mg/dL (0.70-1.30); Calcium 8.7 mg/dL (8.5-10.1); Chloride 102 mmol/L (98-107); Glucose 170 mg/dL (70-100); Potassium 4.1 mmol/L (3.5-5.1); Sodium 142 mmol/L (136-145)
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
--- NOTE | 2019-01-11 14:24 | W.PM.PROGNOT ---
Date of Service Date of service: 01/11/19 Time of Service: 14:25 Assessment and Plan (1) Acute exacerbation of chronic obstructive pulmonary disease (COPD): Current visit: Yes Status: Acute Continue antibiotics, but changed to single agent. Given negative CXR will dose Levofloxacin for acute exacerbation of chronic bronchitis - currently day #5 of antibiotics. Continue Steroids, but given unchanged symptoms will increase IV Solumetrol. Continue duonebs, Budesonide, and supplemental O2. Patient has significant underlying COPD - reports normally taking 5-10 days for resolution of his acute exacerbations in the past. (2) Hypertension: Current visit: Yes Status: Chronic Continue Diltiazem. (3) GERD (gastroesophageal reflux disease): Current visit: Yes Status: Chronic On PPI therapy. (4) DVT prophylaxis: Current visit: Yes Status: Acute On SCDs, TEDs given history of Celerebllar Hemorrhage. (5) Advance directive on file: Current visit: Yes Status: Acute Full Code. Subjective Interval history since last seen: 63 year old man with a prior history of Oxygen dependent COPD, admitted from [facility] Emergency Department with a diagnosis of acute COPD Exacerbation. Mr. Alston has a past Medical History significant for severe COPD, with chronic hypoxic respiratory failure on a reported 5L of O2 at home. He also has a history of CAD with prior CO, TIA, and Cerebellar Hemorrhage. The patient normally receives his medical care in [facility], but was brought to [facility] by ambulance due to worsening dyspnea over the course of the prior month. He also reported a cough productive of white sputum and subjective fevers. The patient was admitted for treatment of likely acute exacerbation of his underlying COPD. This morning Mr. Alston reports symptoms as stable but not improved, and not yet at baseline. Sputum cultures were suspicious for oral contaminant. His WBC continues to be elevated, but improved from yesterday. He also remains afebrile and on IV Steroids. No overnight events reports. Exam Narrative Exam Narrative: General: Patient appears comfortable, AAOX3, NAD. Chronically reported impaired speech noted. Neck: Supple CV: Regular, nontachycardic, S1S2, No rubs, murmurs, or gallops. Pulmonary: Significantly diminished breath sounds, no rhonchi. Minimal wheezing. Overall unchanged. Abdomen: + Bowel Sounds, soft, nontender, nondistended Vascular: No lower extremity edema Psych: Normal mood and affect. Objective Objective Clinical Data: Abnormal lab results 01/11/19 01/11/19 Range/Units 08:58 08:58 WBC 16.30 H D (4.4-10.8) k/cumm Hgb 12.6 L (13.5-17.5) g/dL MCH 26.6 L (27.0-33.0) pg MCHC 29.8 L (32.0-36.0) g/dL RDW 14.2 H (11.8-14.1) % Absolute Neutrophils 14.39 H (1.2-6.7) k/cumm Absolute Lymphocytes 0.88 L (1.2-3.4) k/cumm Absolute Monocytes 0.86 H (0.11-0.7) k/cumm Carbon Dioxide 34.9 H (21.0-32.0) mmol/L BUN 27 H (7-18) mg/dL Creatinine 0.56 L (0.70-1.30) mg/dL Glucose 170 H (70-100) mg/dL Vital Signs Temperature 37.1 C 01/11/19 11:45 Temperature Source Tympanic 01/11/19 11:45 Pulse 97 H 01/11/19 11:45 Pulse Rhythm Regular 01/11/19 08:05 Pulse 97 H 01/07/19 08:40 Respiratory Rate 20 01/11/19 11:45 Respiratory Effort 01/11/19 08:05 Respiratory Depth Shallow 01/11/19 08:05 Respiratory Pattern Normal 01/11/19 08:05 Blood Pressure 151/85 H 01/11/19 11:45 Blood Pressure Mean 96 01/07/19 08:32 Blood Pressure Position Sitting 01/07/19 08:21 Pulse Oximetry 96 01/11/19 14:17 Respiratory End-tidal CO2 41 01/07/19 08:40 Oxygen Delivery Method Nasal Cannula 01/11/19 14:17 Oxygen Flow Rate 3 01/11/19 14:17 Pain Level 0 01/11/19 07:20 Comment 01/11/19 14:17 Intake & Output 01/10/19 01/11/19 01/11/19 23:59 11:59 23:59 Intake Total 680 / 940 1020 / 1260 240 / 1260 Output Total 325 / 975 500 / 600 100 / 600 Balance 355 / -35 520 / 660 140 / 660 Weight 69.4 kg Intake: IV 20 / 40 20 / 20 Oral 660 / 900 1000 / 1240 240 / 1240 Output: Urine 325 / 975 500 / 600 100 / 600 Other: Urine Color Yellow Yellow Yellow Urine Appearance Clear Clear Clear Urine Odor Normal Normal Comment x2 in urinal. Pt voiding ad gustavo in toilet and urinal. No hat in toilet; no measurement. Above void in urinal. Stool Size Moderate Stool Characteristics Formed Brown Voiding Methods Urinal Toilet Urinal Laboratory Results WBC 16.30 k/cumm (4.4-10.8) H D 01/11/19 08:58 RBC 4.73 m/cumm (4.50-6.00) 01/11/19 08:58 Hgb 12.6 g/dL (13.5-17.5) L 01/11/19 08:58 Hct 42.3 % (40.0-50.0) 01/11/19 08:58 MCV 89.4 fL (80-95) 01/11/19 08:58 MCH 26.6 pg (27.0-33.0) L 01/11/19 08:58 MCHC 29.8 g/dL (32.0-36.0) L 01/11/19 08:58 RDW 14.2 % (11.8-14.1) H 01/11/19 08:58 Plt Count 361 x1000/uL (130-400) 01/11/19 08:58 MPV 9.3 fL (8.0-11.0) 01/11/19 08:58 Immature Gran % 0.9 01/11/19 08:58 Neutrophils % 88.3 01/11/19 08:58 Lymphocytes % 5.4 01/11/19 08:58 Monocytes % 5.3 01/11/19 08:58 Eosinophils % 0.0 01/11/19 08:58 Basophils % 0.1 01/11/19 08:58 Absolute Neutrophils 14.39 k/cumm (1.2-6.7) H 01/11/19 08:58 Absolute Lymphocytes 0.88 k/cumm (1.2-3.4) L 01/11/19 08:58 Absolute Monocytes 0.86 k/cumm (0.11-0.7) H 01/11/19 08:58 Absolute Eosinophils 0.00 k/cumm (0.0-0.7) 01/11/19 08:58 Absolute Basophils 0.02 k/cumm (0.0-0.2) 01/11/19 08:58 Differential Comment Diff reviewed 01/10/19 06:50 RBC Morphology Normal 01/09/19 07:05 Sodium 142 mmol/L (136-145) 01/11/19 08:58 Potassium 4.1 mmol/L (3.5-5.1) 01/11/19 08:58 Chloride 102 mmol/L (98-107) 01/11/19 08:58 Carbon Dioxide 34.9 mmol/L (21.0-32.0) H 01/11/19 08:58 Anion Gap 5.1 mmol/L (3-11) 01/11/19 08:58 BUN 27 mg/dL (7-18) H 01/11/19 08:58 Creatinine 0.56 mg/dL (0.70-1.30) L 01/11/19 08:58 Estimated GFR/1.73 m2 >= 60.00 (mL/min/1.73m2) 01/11/19 08:58 Glucose 170 mg/dL (70-100) H 01/11/19 08:58 Calcium 8.7 mg/dL (8.5-10.1) 01/11/19 08:58 Magnesium 2.0 mg/dL (1.8-2.4) 01/11/19 08:58 Total Bilirubin 0.2 mg/dL (0.2-1.0) 01/07/19 08:30 AST < 5 U/L (15-37) L 01/07/19 08:30 ALT 17 U/L (12-78) 01/07/19 08:30 Alkaline Phosphatase 108 U/L (46-116) 01/07/19 08:30 Troponin I < 0.05 ng/mL (0.00-0.06) 01/07/19 08:30 NT-Pro-B Natriuret Pep 57 pg/mL (-299) 01/07/19 08:30 Total Protein 7.1 g/dL (6.4-8.2) 01/07/19 08:30 Albumin 3.9 g/dL (3.4-5.0) 01/07/19 08:30
--- NOTE | 2019-01-11 14:31 | PGE_ITS ---
Date of Service Date of service: 01/11/19 Time of Service: 14:25 Assessment and Plan (1) Acute exacerbation of chronic obstructive pulmonary disease (COPD): Current visit: Yes Status: Acute Continue antibiotics, but changed to single agent. Given negative CXR will dose Levofloxacin for acute exacerbation of chronic bronchitis - currently day #5 of antibiotics. Continue Steroids, but given unchanged symptoms will increase IV Solumetrol. Continue duonebs, Budesonide, and supplemental O2. Patient has significant underlying COPD - reports normally taking 5-10 days for resolution of his acute exacerbations in the past. (2) Hypertension: Current visit: Yes Status: Chronic Continue Diltiazem. (3) GERD (gastroesophageal reflux disease): Current visit: Yes Status: Chronic On PPI therapy. (4) DVT prophylaxis: Current visit: Yes Status: Acute On SCDs, TEDs given history of Celerebllar Hemorrhage. (5) Advance directive on file: Current visit: Yes Status: Acute Full Code. Subjective Interval history since last seen: 63 year old man with a prior history of Oxygen dependent COPD, admitted from [facility] Emergency Department with a diagnosis of acute COPD Exacerbation. Mr. Alston has a past Medical History significant for severe COPD, with chronic hypoxic respiratory failure on a reported 5L of O2 at home. He also has a history of CAD with prior GA, TIA, and Cerebellar Hemorrhage. The patient shawnee delgado receives his medical care in [facility], but was brought to [facility] by ambulance due to worsening dyspnea over the course of the prior month. He also reported a cough productive of white sputum and subjective fevers. The patient was admitted for treatment of likely acute exacerbation of his underlying COPD. This morning Mr. Alston reports symptoms as stable but not improved, and not yet at baseline. Sputum cultures were suspicious for oral contaminant. His WBC continues to be elevated, but improved from yesterday. He also remains afebrile and on IV Steroids. No overnight events reports. Exam Narrative Exam Narrative: General: Patient appears comfortable, AAOX3, NAD. Chronically reported impaired speech noted. Neck: Supple CV: Regular, nontachycardic, S1S2, No rubs, murmurs, or gallops. Pulmonary: Significantly diminished breath sounds, no rhonchi. Minimal wheezing. Overall unchanged. Abdomen: + Bowel Sounds, soft, nontender, nondistended Vascular: No lower extremity edema Psych: Normal mood and affect. Objective Objective Clinical Data: Abnormal lab results 01/11/19 01/11/19 Range/Units 08:58 08:58 WBC 16.30 H D (4.4-10.8) k/cumm Hgb 12.6 L (13.5-17.5) g/dL MCH 26.6 L (27.0-33.0) pg MCHC 29.8 L (32.0-36.0) g/dL RDW 14.2 H (11.8-14.1) % Absolute Neutrophils 14.39 H (1.2-6.7) k/cumm Absolute Lymphocytes 0.88 L (1.2-3.4) k/cumm Absolute Monocytes 0.86 H (0.11-0.7) k/cumm Carbon Dioxide 34.9 H (21.0-32.0) mmol/L BUN 27 H (7-18) mg/dL Creatinine 0.56 L (0.70-1.30) mg/dL Glucose 170 H (70-100) mg/dL Vital Signs Temperature 37.1 C 01/11/19 11:45 Temperature Source Tympanic 01/11/19 11:45 Pulse 97 H 01/11/19 11:45 Pulse Rhythm Regular 01/11/19 08:05 Pulse 97 H 01/07/19 08:40 Respiratory Rate 20 01/11/19 11:45 Respiratory Effort 01/11/19 08:05 Respiratory Depth Shallow 01/11/19 08:05 Respiratory Pattern Normal 01/11/19 08:05 Blood Pressure 151/85 H 01/11/19 11:45 Blood Pressure Mean 96 01/07/19 08:32 Blood Pressure Position Sitting 01/07/19 08:21 Pulse Oximetry 96 01/11/19 14:17 Respiratory End-tidal CO2 41 01/07/19 08:40 Oxygen Delivery Method Nasal Cannula 01/11/19 14:17 Oxygen Flow Rate 3 01/11/19 14:17 Pain Level 0 01/11/19 07:20 Comment 01/11/19 14:17 Intake & Output 01/10/19 01/11/19 01/11/19 23:59 11:59 23:59 Intake Total 680 / 940 1020 / 1260 240 / 1260 Output Total 325 / 975 500 / 600 100 / 600 Balance 355 / -35 520 / 660 140 / 660 Weight 69.4 kg Intake: IV 20 / 40 20 / 20 Oral 660 / 900 1000 / 1240 240 / 1240 Output: Urine 325 / 975 500 / 600 100 / 600 Other: Urine Color Yellow Yellow Yellow Urine Appearance Clear Clear Clear Urine Odor Normal Normal Comment x2 in urinal. Pt voiding ad gustavo in toilet and urinal. No hat in toilet; no measurement. Above void in urinal. Stool Size Moderate Stool Characteristics Formed Brown Voiding Methods Urinal Toilet Urinal Laboratory Results WBC 16.30 k/cumm (4.4-10.8) H D 01/11/19 08:58 RBC 4.73 m/cumm (4.50-6.00) 01/11/19 08:58 Hgb 12.6 g/dL (13.5-17.5) L 01/11/19 08:58 Hct 42.3 % (40.0-50.0) 01/11/19 08:58 MCV 89.4 fL (80-95) 01/11/19 08:58 MCH 26.6 pg (27.0-33.0) L 01/11/19 08:58 MCHC 29.8 g/dL (32.0-36.0) L 01/11/19 08:58 RDW 14.2 % (11.8-14.1) H 01/11/19 08:58 Plt Count 361 x1000/uL (130-400) 01/11/19 08:58 MPV 9.3 fL (8.0-11.0) 01/11/19 08:58 Immature Gran % 0.9 01/11/19 08:58 Neutrophils % 88.3 01/11/19 08:58 Lymphocytes % 5.4 01/11/19 08:58 Monocytes % 5.3 01/11/19 08:58 Eosinophils % 0.0 01/11/19 08:58 Basophils % 0.1 01/11/19 08:58 Absolute Neutrophils 14.39 k/cumm (1.2-6.7) H 01/11/19 08:58 Absolute Lymphocytes 0.88 k/cumm (1.2-3.4) L 01/11/19 08:58 Absolute Monocytes 0.86 k/cumm (0.11-0.7) H 01/11/19 08:58 Absolute Eosinophils 0.00 k/cumm (0.0-0.7) 01/11/19 08:58 Absolute Basophils 0.02 k/cumm (0.0-0.2) 01/11/19 08:58 Differential Comment Diff reviewed 01/10/19 06:50 RBC Morphology Normal 01/09/19 07:05 Sodium 142 mmol/L (136-145) 01/11/19 08:58 Potassium 4.1 mmol/L (3.5-5.1) 01/11/19 08:58 Chloride 102 mmol/L (98-107) 01/11/19 08:58 Carbon Dioxide 34.9 mmol/L (21.0-32.0) H 01/11/19 08:58 Anion Gap 5.1 mmol/L (3-11) 01/11/19 08:58 BUN 27 mg/dL (7-18) H 01/11/19 08:58 Creatinine 0.56 mg/dL (0.70-1.30) L 01/11/19 08:58 Estimated GFR/1.73 m2 >= 60.00 (mL/min/1.73m2) 01/11/19 08:58 Glucose 170 mg/dL (70-100) H 01/11/19 08:58 Calcium 8.7 mg/dL (8.5-10.1) 01/11/19 08:58 Magnesium 2.0 mg/dL (1.8-2.4) 01/11/19 08:58 Total Bilirubin 0.2 mg/dL (0.2-1.0) 01/07/19 08:30 AST < 5 U/L (15-37) L 01/07/19 08:30 ALT 17 U/L (12-78) 01/07/19 08:30 Alkaline Phosphatase 108 U/L (46-116) 01/07/19 08:30 Troponin I < 0.05 ng/mL (0.00-0.06) 01/07/19 08:30 NT-Pro-B Natriuret Pep 57 pg/mL (-299) 01/07/19 08:30 Total Protein 7.1 g/dL (6.4-8.2) 01/07/19 08:30 Albumin 3.9 g/dL (3.4-5.0) 01/07/19 08:30
--- NOTE | 2019-01-11 15:19 | PT.INTREAT ---
Date of service: 01/11/19 Time of Service: 14:44 PT Notes Inpatient Physical Therapy Treatment Note [facility] Date: 01/11/2019 PRECAUTIONS: Fall. Standard. SUBJECTIVE: Patient reports that she slept better last night. He denies nausea and dizziness. He reports no chest pain nor headache throughout PT session. Patient states that he is able to recover back from desaturation as long as he lies back down right away and the oxygen is ramped back up to 6 L/minute with activity. OBJECTIVE: Patient seen resting in bed, agreeable to a second PT session this afternoon. PAIN: 0/10 BED MOBILITY/TRANSFERS Rolling L/R: I Supine-sit: I Sit-supine: I Sit-stand: I Stand-sit: I Bed-Chair: I Chair-bed: I GAIT Assistive Device: FWW Weight bearing: FWB Assist: S Distance: 30 feet x 2 Deviation: No remarkable gait deviation noted. Patient has a tendency to walk fast which may contribute to desaturation after walking activity. VITALS: Oxygen saturation ranged from 86% to 90% throughout gait activity. Patient is used to ramping up oxygen supplementation to 6 L/min during walking activity. THEREX: Patient completed standing level exercises as indicated in exercise flow sheet without undue fatigue and increase in dyspnea. ASSESSMENT: Patient demonstrates good tolerance to physical therapy session with observed improvement in terms activity tolerance, self-efficacy/confidence, and participation level. PLAN: Continue with increasing tolerance for ambulation in preparation for discharge to home as per prior level. Patient to progress with mobility level, functional performance, and knowledge of HEP to achieve previously established goals. TREATMENT CODE/TIME: 9753 0 x 26 minutes beginning at 14:44 PM.
--- NOTE | 2019-01-11 15:39 | PDOC.CMPRO ---
- If Service Date Differs Date of service: 01/11/19 Time of Service: 15:39 Care Management Progress Note S/O: CM met with Dave he continues to require acute level of care. CM did review case with [facility] community associate Nichelle Carpenter she states she has been trying to assist patient with placement in a community nursing home. She has not been able to find AFC at this home she is working with [facility] services and [facility] services at this time. Dave will plan to return home when medically ready he does live with his sister michael Steward whom provides him support at home. 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. Dave does have a PT consult today to assess level of functioning. A: Dave is a 63 year old male admitted with COPD P:Dave is being treated with IV steroids, oral antibiotics. He will be discharged home when medically ready per provider. Anticipate increase in services at time of discharge if recommended. CM notified that he is currently inpatient and request call from community associate to follow up services in the community. CM to continue to provide support discharge planning and disposition. RCT to transport per pt.
--- NOTE | 2019-01-11 15:45 | CMPROGNOTE_ITS ---
- If Service Date Differs Date of service: 01/11/19 Time of Service: 15:39 Care Management Progress Note S/O: CM met with Dave he continues to require acute level of care. CM did review case with choice for care community services officer Nichelle Carpenter she states she has been trying to assist patient with placement in a community shelter. She has not been able to find AFC at this home she is working with [facility] services and [facility] services at this time. Dave will plan to return home when medically ready he does live with his sister michael Steward whom provides him support at home. 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 Dave does have a PT consult today to assess level of functioning. A: Dave is a 63 year old male admitted with COPD P:Dave is being treated with IV steroids, oral antibiotics. He will be discharged home when medically ready per provider. Anticipate increase in services at time of discharge if recommended. CM notified that he is currently inpatient and request call from community services officer to follow up services in the community. CM to continue to provide support discharge planning and disposition. RCT to transport per pt.
[2019-01-12] VITALS (10 sets, daily range): BP systolic 131–157; BP diastolic 76–81; PULSE 85–97; RESP 2–20; TEMP 36.4–37.1; O2SAT 95–99
[2019-01-12] MEDS: Normal Saline Flush 10 ML SYR IVP ×3 (02:10→19:28)
[2019-01-12] MEDS: methylPREDNISolone SUCC 40 MG VIAL IVP ×2 (02:10→08:43)
[2019-01-12] MEDS: Albuterol/Ipratropium 3 ML UPD VIAL UPD ×5 (04:04→19:25)
[2019-01-12] MEDS: Benzonatate 200 MG CAP PO ×3 (06:56→21:30)
[2019-01-12] MEDS: Budesonide 0.5 MG/2 ML UPD VIAL UPD ×2 (07:23→19:33)
[2019-01-12 07:33] LABS: Absolute Basophil Count 0.01 k/cumm (0.0-0.2); Absolute Lymphocyte Count 0.68 k/cumm (1.2-3.4); Basophils % 0.1; HCT 41.1 % (40.0-50.0); HGB 12.3 g/dL (13.5-17.5); Immature Grans % 1.4; Lymphocytes % 4.8; Mean Corp. HGB Concentration 29.9 g/dL (32.0-36.0); Mean Corpuscular Hemoglobin 26.7 pg (27.0-33.0); Mean Corpuscular Volume 89.3 fL (80-95); Mean Platelet Volume 9.4 fL (8.0-11.0); Monocytes % 6.3; Neutrophils % 87.4; Platelet Count 368 x1000/uL (130-400); RBC Distribution Width 14.1 % (11.8-14.1); White Blood Cell Count 14.23 k/cumm (4.4-10.8)
[2019-01-12 07:35] LABS: Absolute Neutrophil Count 12.44 k/cumm (1.2-6.7)
[2019-01-12 07:55] LABS: Anion Gap 4.9 mmol/L (3-11); BUN 23 mg/dL (7-18); CO2 35.1 mmol/L (21.0-32.0); CREATININE 0.56 mg/dL (0.70-1.30); Calcium 8.7 mg/dL (8.5-10.1); Chloride 102 mmol/L (98-107); Glucose 158 mg/dL (70-100); Magnesium 1.7 mg/dL (1.8-2.4); Potassium 4.1 mmol/L (3.5-5.1); Sodium 142 mmol/L (136-145)
[2019-01-12] MEDS: Pantoprazole 40 MG TABCR PO (08:41)
[2019-01-12] MEDS: Aspirin 325 MG TAB PO (08:42)
[2019-01-12] MEDS: dilTIAZem CD 120 MG CAPCR PO (08:42)
[2019-01-12] MEDS: guaiFENesin 600 MG TABCR PO ×2 (08:42→19:25)
[2019-01-12] MEDS: Magnesium Oxide 400 MG TAB 800 MG PO (10:00)
--- NOTE | 2019-01-12 11:03 | PDOC.CMPRO ---
Care Management Progress Note S/O: Dave remains acute; requiring O2, Acapella, IVF and Nebs. 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 His high risk case manager, Martha is working with [facility] [place]. Dave was extremely tired throughout the day and unable to participate with PT. CM continues to follow. A: Dave is a 63 year old male admitted to [facility] on 01/07/19 with Acute Exacerbation of COPD P: Dave is being treated with IV steroids, and oral antibiotics. He will be discharged to home when medically ready per provider. He will be evaluated for increased services prior to discharge. He will resume current supports through [facility] including his community dietitian Mariana Cordon, REPEAT CHIEF, HC, RN, and LTC CFC. CM will continue to provide support regarding discharge planning and disposition. Dave reported he will transport via [facility].
--- NOTE | 2019-01-12 11:07 | CMPROGNOTE_ITS ---
Care Management Progress Note S/O: Dave remains acute; requiring O2, Acapella, IVF and Nebs. 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 His rn case manager, Martha is working with [facility] on AF home placement. Dave was extremely tired throughout the day and unable to participate with PT. CM continues to follow. A: Dave is a 63 year old male admitted to [facility] on 01/07/19 with Acute Exacerbation of COPD P: Dave is being treated with IV steroids, and oral antibiotics. He will be discharged to home when medically ready per provider. He will be evaluated for increased services prior to discharge. He will resume current supports through [facility] including his aboriginal community council member Mariana Cordon, DISH TECHNICIAN, HC, RN, and LTC CFC. CM will continue to provide support regarding discharge planning and disposition. Dave reported he will transport via [facility].
--- NOTE | 2019-01-12 12:09 | PT.INTREAT ---
Date of service: 01/12/19 Time of Service: 12:24 PT Notes Inpatient Physical Therapy Treatment Note [facility] Date: 01/12/2019 PRECAUTIONS: Fall SUBJECTIVE: Dave states that he is extremely tired today, he feels discouraged because he has not been able to get much rest. OBJECTIVE: PAIN: No complaints of pain BED MOBILITY/TRANSFERS Supine-sit: I Sit-supine: I Sit-stand: I Stand-sit: I GAIT Assistive Device: No AD Weight bearing: Full Assist: S Distance: 50' +20' Deviation: Seated rest x1 VITALS: SaO2: 90-97% on 6L O2 NC with gait training, 88% on 6L O2 NC with stair training; patient requires 3-5-minute rest for recovery to 95% on 6L O2 NC STAIRS: Up/down 3x4 and 2x6 using B rails and a step over pattern with supervision ASSESSMENT: Patient tolerated session with complaints of increased SOB with activity. Patient requires seated rest for recovery following a progression in gait distance without use of assistive device. Patient would benefit from continued general conditioning for improved cardiovascular endurance and activity tolerance. PLAN: Continue with PTs POC TREATMENT CODE/TIME: 20 minutes; [id number]
[2019-01-12] MEDS: methylPREDNISolone SUCC 40 MG VIAL 60 MG IVP ×2 (14:15→19:27)
--- NOTE | 2019-01-12 15:22 | PT.INNT ---
Date of service: 01/12/19 Time of Service: 15:22 PT Notes 01/12/19 Held afternoon PT session, patient sleeping. Will attempt to resume PT services tomorrow morning.
--- NOTE | 2019-01-12 16:04 | W.PM.PROGNOT ---
Date of Service Date of service: 01/12/19 Time of Service: 16:04 Assessment and Plan (1) Acute exacerbation of chronic obstructive pulmonary disease (COPD): Current visit: Yes Status: Acute Received 5 days of antibiotics with a negative CXR. Sputum cultures unrevealing. Continue Steroids, but given unchanged symptoms will increase IV Solumetrol again today. Continue duonebs, Budesonide, and supplemental O2. Patient has significant underlying COPD - reports normally taking 5-10 days for resolution of his acute exacerbations in the past. If symptoms continue to remain unchanged or worsen tomorrow, may benefit from reimaging. (2) Hypertension: Current visit: Yes Status: Chronic Continue Diltiazem. (3) GERD (gastroesophageal reflux disease): Current visit: Yes Status: Chronic On PPI therapy. (4) DVT prophylaxis: Current visit: Yes Status: Acute On SCDs, TEDs given history of Celerebllar Hemorrhage. (5) Advance directive on file: Current visit: Yes Status: Acute Full Code. Subjective Interval history since last seen: 63 year old man with a prior history of Oxygen dependent COPD, admitted from [facility] Emergency Department with a diagnosis of acute COPD Exacerbation. Mr. Alston has a past Medical History significant for severe COPD, with chronic hypoxic respiratory failure on a reported 5L of O2 at home. He also has a history of CAD with prior [place], TIA, and Cerebellar Hemorrhage. The patient normally receives his medical care in [facility], but was brought to [facility] by ambulance due to worsening dyspnea over the course of the prior month. He also reported a cough productive of white sputum and subjective fevers. The patient was admitted for treatment of likely acute exacerbation of his underlying COPD. This morning Mr. Alston reports symptoms as stable but not improving, and not yet at baseline. Sputum cultures were suspicious for oral contaminant, and repeat with cultures pending. His WBC continues to be elevated, but again improved from yesterday. He also remains afebrile and on IV Steroids. No overnight events reports. Exam Narrative Exam Narrative: General: Patient appears comfortable, AAOX3, NAD. Chronically reported impaired speech noted. Neck: Supple CV: Regular, nontachycardic, S1S2, No rubs, murmurs, or gallops. Pulmonary: Significantly diminished breath sounds, no rhonchi. Minimal wheezing. Overall unchanged. Abdomen: + Bowel Sounds, soft, nontender, nondistended Vascular: No lower extremity edema Psych: Normal mood and affect. Objective Objective Clinical Data: Abnormal lab results 01/12/19 01/12/19 Range/Units 06:37 06:37 WBC 14.23 H (4.4-10.8) k/cumm Hgb 12.3 L (13.5-17.5) g/dL MCH 26.7 L (27.0-33.0) pg MCHC 29.9 L (32.0-36.0) g/dL Absolute Neutrophils 12.44 H (1.2-6.7) k/cumm Absolute Lymphocytes 0.68 L (1.2-3.4) k/cumm Absolute Monocytes 0.90 H (0.11-0.7) k/cumm Carbon Dioxide 35.1 H (21.0-32.0) mmol/L BUN 23 H (7-18) mg/dL Creatinine 0.56 L (0.70-1.30) mg/dL Glucose 158 H (70-100) mg/dL Magnesium 1.7 L (1.8-2.4) mg/dL Vital Signs Temperature 36.7 C 01/12/19 15:49 Temperature Source Tympanic 01/12/19 15:49 Pulse 97 H 01/12/19 15:49 Pulse Rhythm Regular 01/12/19 09:08 Pulse 97 H 01/07/19 08:40 Respiratory Rate 20 01/12/19 15:49 Respiratory Effort 01/12/19 09:08 Respiratory Depth Normal 01/12/19 09:08 Respiratory Pattern Normal 01/12/19 09:08 Blood Pressure 131/76 01/12/19 15:49 Blood Pressure Mean 96 01/07/19 08:32 Blood Pressure Position Sitting 01/07/19 08:21 Pulse Oximetry 96 01/12/19 15:49 Respiratory End-tidal CO2 41 01/07/19 08:40 Oxygen Delivery Method Nasal Cannula 01/12/19 15:49 Oxygen Flow Rate 3 01/12/19 15:49 Pain Level 0 01/12/19 03:50 Comment 01/12/19 03:50 Intake & Output 01/11/19 01/12/19 01/12/19 23:59 11:59 23:59 Intake Total 520 / 1540 340 / 580 240 / 580 Output Total 750 / 1250 625 / 875 250 / 875 Balance -230 / 290 -285 / -295 -10 / -295 Weight 70.2 kg Intake: IV 40 / 60 Oral 480 / 1480 340 / 580 240 / 580 Output: Urine 750 / 1250 625 / 875 250 / 875 Other: Urine Color Yellow Yellow Yellow Urine Appearance Clear Clear Clear Urine Odor Normal Normal Comment Pt voiding ad gustavo in toilet and urinal. No hat in toilet; no measurement. Above void in urinal. Voiding Methods Urinal Urinal Laboratory Results WBC 14.23 k/cumm (4.4-10.8) H 01/12/19 06:37 RBC 4.60 m/cumm (4.50-6.00) 01/12/19 06:37 Hgb 12.3 g/dL (13.5-17.5) L 01/12/19 06:37 Hct 41.1 % (40.0-50.0) 01/12/19 06:37 MCV 89.3 fL (80-95) 01/12/19 06:37 MCH 26.7 pg (27.0-33.0) L 01/12/19 06:37 MCHC 29.9 g/dL (32.0-36.0) L 01/12/19 06:37 RDW 14.1 % (11.8-14.1) 01/12/19 06:37 Plt Count 368 x1000/uL (130-400) 01/12/19 06:37 MPV 9.4 fL (8.0-11.0) 01/12/19 06:37 Immature Gran % 1.4 01/12/19 06:37 Neutrophils % 87.4 01/12/19 06:37 Lymphocytes % 4.8 01/12/19 06:37 Monocytes % 6.3 01/12/19 06:37 Eosinophils % 0.0 01/12/19 06:37 Basophils % 0.1 01/12/19 06:37 Absolute Neutrophils 12.44 k/cumm (1.2-6.7) H 01/12/19 06:37 Absolute Lymphocytes 0.68 k/cumm (1.2-3.4) L 01/12/19 06:37 Absolute Monocytes 0.90 k/cumm (0.11-0.7) H 01/12/19 06:37 Absolute Eosinophils 0.00 k/cumm (0.0-0.7) 01/12/19 06:37 Absolute Basophils 0.01 k/cumm (0.0-0.2) 01/12/19 06:37 Differential Comment Diff reviewed 01/10/19 06:50 RBC Morphology Normal 01/09/19 07:05 Sodium 142 mmol/L (136-145) 01/12/19 06:37 Potassium 4.1 mmol/L (3.5-5.1) 01/12/19 06:37 Chloride 102 mmol/L (98-107) 01/12/19 06:37 Carbon Dioxide 35.1 mmol/L (21.0-32.0) H 01/12/19 06:37 Anion Gap 4.9 mmol/L (3-11) 01/12/19 06:37 BUN 23 mg/dL (7-18) H 01/12/19 06:37 Creatinine 0.56 mg/dL (0.70-1.30) L 01/12/19 06:37 Estimated GFR/1.73 m2 >= 60.00 (mL/min/1.73m2) 01/12/19 06:37 Glucose 158 mg/dL (70-100) H 01/12/19 06:37 Calcium 8.7 mg/dL (8.5-10.1) 01/12/19 06:37 Magnesium 1.7 mg/dL (1.8-2.4) L 01/12/19 06:37 Total Bilirubin 0.2 mg/dL (0.2-1.0) 01/07/19 08:30 AST < 5 U/L (15-37) L 01/07/19 08:30 ALT 17 U/L (12-78) 01/07/19 08:30 Alkaline Phosphatase 108 U/L (46-116) 01/07/19 08:30 Troponin I < 0.05 ng/mL (0.00-0.06) 01/07/19 08:30 NT-Pro-B Natriuret Pep 57 pg/mL (-299) 01/07/19 08:30 Total Protein 7.1 g/dL (6.4-8.2) 01/07/19 08:30 Albumin 3.9 g/dL (3.4-5.0) 01/07/19 08:30
--- NOTE | 2019-01-12 16:07 | PGE_ITS ---
Date of Service Date of service: 01/12/19 Time of Service: 16:04 Assessment and Plan (1) Acute exacerbation of chronic obstructive pulmonary disease (COPD): Current visit: Yes Status: Acute Received 5 days of antibiotics with a negative CXR. Sputum cultures unrevealing. Continue Steroids, but given unchanged symptoms will increase IV Solumetrol again today. Continue duonebs, Budesonide, and supplemental O2. Patient has significant underlying COPD - reports normally taking 5-10 days for resolution of his acute exacerbations in the past. If symptoms continue to remain unchanged or worsen tomorrow, may benefit from reimaging. (2) Hypertension: Current visit: Yes Status: Chronic Continue Diltiazem. (3) GERD (gastroesophageal reflux disease): Current visit: Yes Status: Chronic On PPI therapy. (4) DVT prophylaxis: Current visit: Yes Status: Acute On SCDs, TEDs given history of Celerebllar Hemorrhage. (5) Advance directive on file: Current visit: Yes Status: Acute Full Code. Subjective Interval history since last seen: 63 year old man with a prior history of Oxygen dependent COPD, admitted from [facility] Emergency Department with a diagnosis of acute COPD Exacerbation. Mr. Alston has a past Medical History significant for severe COPD, with chronic hypoxic respiratory failure on a reported 5L of O2 at home. He also has a history of CAD with prior [place], TIA, and Cerebellar Hemorrhage. The patient normally receives his medical care in [facility], but was brought to [facility] by ambulance due to worsening dyspnea over the course of the prior month. He also reported a cough productive of white sputum and subjective fevers. The patient was admitted for treatment of likely acute exacerbation of his underlying COPD. This morning Mr. Alston reports symptoms as stable but not improving, and not yet at baseline. Sputum cultures were suspicious for oral contaminant, and repeat with cultures pending. His WBC continues to be elevated, but again improved from yesterday. He also remains afebrile and on IV Steroids. No overnight events reports. Exam Narrative Exam Narrative: General: Patient appears comfortable, AAOX3, NAD. Chronically reported impaired speech noted. Neck: Supple CV: Regular, nontachycardic, S1S2, No rubs, murmurs, or gallops. Pulmonary: Significantly diminished breath sounds, no rhonchi. Minimal wheezing. Overall unchanged. Abdomen: + Bowel Sounds, soft, nontender, nondistended Vascular: No lower extremity edema Psych: Normal mood and affect. Objective Objective Clinical Data: Abnormal lab results 01/12/19 01/12/19 Range/Units 06:37 06:37 WBC 14.23 H (4.4-10.8) k/cumm Hgb 12.3 L (13.5-17.5) g/dL MCH 26.7 L (27.0-33.0) pg MCHC 29.9 L (32.0-36.0) g/dL Absolute Neutrophils 12.44 H (1.2-6.7) k/cumm Absolute Lymphocytes 0.68 L (1.2-3.4) k/cumm Absolute Monocytes 0.90 H (0.11-0.7) k/cumm Carbon Dioxide 35.1 H (21.0-32.0) mmol/L BUN 23 H (7-18) mg/dL Creatinine 0.56 L (0.70-1.30) mg/dL Glucose 158 H (70-100) mg/dL Magnesium 1.7 L (1.8-2.4) mg/dL Vital Signs Temperature 36.7 C 01/12/19 15:49 Temperature Source Tympanic 01/12/19 15:49 Pulse 97 H 01/12/19 15:49 Pulse Rhythm Regular 01/12/19 09:08 Pulse 97 H 01/07/19 08:40 Respiratory Rate 20 01/12/19 15:49 Respiratory Effort 01/12/19 09:08 Respiratory Depth Normal 01/12/19 09:08 Respiratory Pattern Normal 01/12/19 09:08 Blood Pressure 131/76 01/12/19 15:49 Blood Pressure Mean 96 01/07/19 08:32 Blood Pressure Position Sitting 01/07/19 08:21 Pulse Oximetry 96 01/12/19 15:49 Respiratory End-tidal CO2 41 01/07/19 08:40 Oxygen Delivery Method Nasal Cannula 01/12/19 15:49 Oxygen Flow Rate 3 01/12/19 15:49 Pain Level 0 01/12/19 03:50 Comment 01/12/19 03:50 Intake & Output 01/11/19 01/12/19 01/12/19 23:59 11:59 23:59 Intake Total 520 / 1540 340 / 580 240 / 580 Output Total 750 / 1250 625 / 875 250 / 875 Balance -230 / 290 -285 / -295 -10 / -295 Weight 70.2 kg Intake: IV 40 / 60 Oral 480 / 1480 340 / 580 240 / 580 Output: Urine 750 / 1250 625 / 875 250 / 875 Other: Urine Color Yellow Yellow Yellow Urine Appearance Clear Clear Clear Urine Odor Normal Normal Comment Pt voiding ad gustavo in toilet and urinal. No hat in toilet; no measurement. Above void in urinal. Voiding Methods Urinal Urinal Laboratory Results WBC 14.23 k/cumm (4.4-10.8) H 01/12/19 06:37 RBC 4.60 m/cumm (4.50-6.00) 01/12/19 06:37 Hgb 12.3 g/dL (13.5-17.5) L 01/12/19 06:37 Hct 41.1 % (40.0-50.0) 01/12/19 06:37 MCV 89.3 fL (80-95) 01/12/19 06:37 MCH 26.7 pg (27.0-33.0) L 01/12/19 06:37 MCHC 29.9 g/dL (32.0-36.0) L 01/12/19 06:37 RDW 14.1 % (11.8-14.1) 01/12/19 06:37 Plt Count 368 x1000/uL (130-400) 01/12/19 06:37 MPV 9.4 fL (8.0-11.0) 01/12/19 06:37 Immature Gran % 1.4 01/12/19 06:37 Neutrophils % 87.4 01/12/19 06:37 Lymphocytes % 4.8 01/12/19 06:37 Monocytes % 6.3 01/12/19 06:37 Eosinophils % 0.0 01/12/19 06:37 Basophils % 0.1 01/12/19 06:37 Absolute Neutrophils 12.44 k/cumm (1.2-6.7) H 01/12/19 06:37 Absolute Lymphocytes 0.68 k/cumm (1.2-3.4) L 01/12/19 06:37 Absolute Monocytes 0.90 k/cumm (0.11-0.7) H 01/12/19 06:37 Absolute Eosinophils 0.00 k/cumm (0.0-0.7) 01/12/19 06:37 Absolute Basophils 0.01 k/cumm (0.0-0.2) 01/12/19 06:37 Differential Comment Diff reviewed 01/10/19 06:50 RBC Morphology Normal 01/09/19 07:05 Sodium 142 mmol/L (136-145) 01/12/19 06:37 Potassium 4.1 mmol/L (3.5-5.1) 01/12/19 06:37 Chloride 102 mmol/L (98-107) 01/12/19 06:37 Carbon Dioxide 35.1 mmol/L (21.0-32.0) H 01/12/19 06:37 Anion Gap 4.9 mmol/L (3-11) 01/12/19 06:37 BUN 23 mg/dL (7-18) H 01/12/19 06:37 Creatinine 0.56 mg/dL (0.70-1.30) L 01/12/19 06:37 Estimated GFR/1.73 m2 >= 60.00 (mL/min/1.73m2) 01/12/19 06:37 Glucose 158 mg/dL (70-100) H 01/12/19 06:37 Calcium 8.7 mg/dL (8.5-10.1) 01/12/19 06:37 Magnesium 1.7 mg/dL (1.8-2.4) L 01/12/19 06:37 Total Bilirubin 0.2 mg/dL (0.2-1.0) 01/07/19 08:30 AST < 5 U/L (15-37) L 01/07/19 08:30 ALT 17 U/L (12-78) 01/07/19 08:30 Alkaline Phosphatase 108 U/L (46-116) 01/07/19 08:30 Troponin I < 0.05 ng/mL (0.00-0.06) 01/07/19 08:30 NT-Pro-B Natriuret Pep 57 pg/mL (-299) 01/07/19 08:30 Total Protein 7.1 g/dL (6.4-8.2) 01/07/19 08:30 Albumin 3.9 g/dL (3.4-5.0) 01/07/19 08:30
[2019-01-13] VITALS (12 sets, daily range): BP systolic 128–163; BP diastolic 75–93; PULSE 28–98; RESP 5–28; TEMP 35.7–36.7; O2SAT 94–98
[2019-01-13] MEDS: methylPREDNISolone SUCC 40 MG VIAL 60 MG IVP ×4 (01:26→20:42)
[2019-01-13] MEDS: Normal Saline Flush 10 ML SYR IVP ×2 (01:26→20:42)
[2019-01-13] MEDS: Albuterol/Ipratropium 3 ML UPD VIAL UPD ×6 (04:26→23:01)
[2019-01-13] MEDS: Benzonatate 200 MG CAP PO ×3 (06:44→21:29)
[2019-01-13 07:10] LABS: Abs Immature Grans 0.34 k/cumm (0.0-0.09); Absolute Lymphocyte Count 0.74 k/cumm (1.2-3.4); Absolute Neutrophil Count 14.03 k/cumm (1.2-6.7); Basophils % 0.1; Eosinophils % 0.1; HCT 44.6 % (40.0-50.0); HGB 13.4 g/dL (13.5-17.5); Immature Grans % 2.1; Lymphocytes % 4.7; Mean Corpuscular Hemoglobin 26.8 pg (27.0-33.0); Mean Corpuscular Volume 89.2 fL (80-95); Mean Platelet Volume 9.4 fL (8.0-11.0); Monocytes % 4.4; Neutrophils % 88.6; Platelet Count 379 x1000/uL (130-400); RBC Distribution Width 14.3 % (11.8-14.1); White Blood Cell Count 15.83 k/cumm (4.4-10.8)
[2019-01-13 07:14] LABS: Absolute Basophil Count 0.02 k/cumm (0.0-0.2); Absolute Eosinophil Count 0.02 k/cumm (0.0-0.7)
[2019-01-13 07:32] LABS: Anion Gap 3.2 mmol/L (3-11); BUN 25 mg/dL (7-18); CO2 38.8 mmol/L (21.0-32.0); CREATININE 0.64 mg/dL (0.70-1.30); Calcium 8.9 mg/dL (8.5-10.1); Chloride 101 mmol/L (98-107); Glucose 178 mg/dL (70-100); Magnesium 1.8 mg/dL (1.8-2.4); Potassium 4.7 mmol/L (3.5-5.1); Sodium 143 mmol/L (136-145)
[2019-01-13] MEDS: Budesonide 0.5 MG/2 ML UPD VIAL UPD ×2 (07:43→20:43)
[2019-01-13 07:56] LABS: Diff Comment Diff Reviewed; Poikilocytes 1+
[2019-01-13] MEDS: guaiFENesin 600 MG TABCR PO ×2 (09:05→20:45)
[2019-01-13] MEDS: Aspirin 325 MG TAB PO (09:05)
[2019-01-13] MEDS: Pantoprazole 40 MG TABCR PO (09:06)
[2019-01-13] MEDS: dilTIAZem CD 120 MG CAPCR PO (09:06)
[2019-01-13] MEDS: Magnesium Oxide 400 MG TAB PO (11:34)
--- NOTE | 2019-01-13 15:01 | W.PM.PROGNOT ---
Date of Service Date of service: 01/13/19 Time of Service: 15:01 Assessment and Plan (1) Acute exacerbation of chronic obstructive pulmonary disease (COPD): Current visit: Yes Status: Acute Received 5 days of antibiotics with a negative CXR. Sputum cultures unrevealing. Continue Steroids, but given unchanged symptoms previously IV Solumedrol was increased previously, and today patient appears improved. Continue duonebs, Budesonide, and supplemental O2. Patient has significant underlying COPD - reports normally taking 5-10 days for resolution of his acute exacerbations in the past. Per discussion with his PCP he is hospitalized once every 4-6 months, and has nearly monthly ED visits. (2) Hypertension: Current visit: Yes Status: Chronic Continue Diltiazem. (3) GERD (gastroesophageal reflux disease): Current visit: Yes Status: Chronic On PPI therapy. (4) DVT prophylaxis: Current visit: Yes Status: Acute On SCDs, TEDs given history of Celerebllar Hemorrhage. (5) Advance directive on file: Current visit: Yes Status: Acute Full Code. Subjective Interval history since last seen: 63 year old man with a prior history of Oxygen dependent COPD, admitted from [facility] Emergency Department with a diagnosis of acute COPD Exacerbation. Mr. Alston has a past Medical History significant for severe COPD, with chronic hypoxic respiratory failure on a reported 5L of O2 at home. He also has a history of CAD with prior [place], TIA, and Cerebellar Hemorrhage. The patient normally receives his medical care in [facility], but was brought to [facility] by ambulance due to worsening dyspnea over the course of the prior month. He also reported a cough productive of white sputum and subjective fevers. The patient was admitted for treatment of likely acute exacerbation of his underlying COPD. This morning Mr. Alston appears slightly improved. Sputum cultures were suspicious for oral contaminant, and repeat cultures are unrevealing. His WBC continues to be elevated, but improved previous and now stable - He also remains afebrile and on IV Steroids. No overnight events reports. Exam Narrative Exam Narrative: General: Patient appears comfortable, AAOX3, NAD. Chronically reported impaired speech noted. Neck: Supple CV: Regular, nontachycardic, S1S2, No rubs, murmurs, or gallops. Pulmonary: Significantly diminished breath sounds, no rhonchi. Minimal wheezing improved. Overall unchanged. Abdomen: + Bowel Sounds, soft, nontender, nondistended Vascular: No lower extremity edema Psych: Normal mood and affect. Objective Objective Clinical Data: Abnormal lab results 01/13/19 01/13/19 Range/Units 06:20 06:20 WBC 15.83 H (4.4-10.8) k/cumm Hgb 13.4 L (13.5-17.5) g/dL MCH 26.8 L (27.0-33.0) pg MCHC 30.0 L (32.0-36.0) g/dL RDW 14.3 H (11.8-14.1) % Absolute Neutrophils 14.03 H (1.2-6.7) k/cumm Absolute Lymphocytes 0.74 L (1.2-3.4) k/cumm Carbon Dioxide 38.8 H (21.0-32.0) mmol/L BUN 25 H (7-18) mg/dL Creatinine 0.64 L (0.70-1.30) mg/dL Glucose 178 H (70-100) mg/dL Vital Signs Temperature 36.3 C L 01/13/19 11:30 Temperature Source Tympanic 01/13/19 11:30 Pulse 98 H 01/13/19 11:30 Pulse Rhythm Regular 01/13/19 10:46 Pulse 97 H 01/07/19 08:40 Respiratory Rate 21 01/13/19 11:30 Respiratory Effort 01/13/19 10:46 Respiratory Depth Deep 01/13/19 10:46 Respiratory Pattern Normal 01/13/19 10:46 Blood Pressure 159/90 H 01/13/19 11:30 Blood Pressure Mean 96 01/07/19 08:32 Blood Pressure Position Sitting 01/07/19 08:21 Pulse Oximetry 97 01/13/19 11:30 Respiratory End-tidal CO2 41 01/07/19 08:40 Oxygen Delivery Method Nasal Cannula 01/13/19 11:30 Oxygen Flow Rate 4 01/13/19 11:30 Pain Level 0 01/13/19 07:30 Comment 01/12/19 03:50 Intake & Output 01/12/19 01/13/19 01/13/19 23:59 11:59 23:59 Intake Total 500 / 840 760 / 1000 240 / 1000 Output Total 550 / 1175 950 / 950 Balance -50 / -335 -190 / 50 240 / 50 Weight 71.7 kg Intake: IV 20 Oral 480 / 820 740 / 980 240 / 980 Output: Urine 550 / 1175 950 / 950 Other: Urine Color Light Elly Yellow Urine Appearance Clear Clear Urine Odor Strong None Comment DARK YELLOW URINE IN UJRINAL Voiding Methods Urinal Toilet Laboratory Results WBC 15.83 k/cumm (4.4-10.8) H 01/13/19 06:20 RBC 5.00 m/cumm (4.50-6.00) 01/13/19 06:20 Hgb 13.4 g/dL (13.5-17.5) L 01/13/19 06:20 Hct 44.6 % (40.0-50.0) 01/13/19 06:20 MCV 89.2 fL (80-95) 01/13/19 06:20 MCH 26.8 pg (27.0-33.0) L 01/13/19 06:20 MCHC 30.0 g/dL (32.0-36.0) L 01/13/19 06:20 RDW 14.3 % (11.8-14.1) H 01/13/19 06:20 Plt Count 379 x1000/uL (130-400) 01/13/19 06:20 MPV 9.4 fL (8.0-11.0) 01/13/19 06:20 Immature Gran % 2.1 01/13/19 06:20 Neutrophils % 88.6 01/13/19 06:20 Lymphocytes % 4.7 01/13/19 06:20 Monocytes % 4.4 01/13/19 06:20 Eosinophils % 0.1 01/13/19 06:20 Basophils % 0.1 01/13/19 06:20 Absolute Neutrophils 14.03 k/cumm (1.2-6.7) H 01/13/19 06:20 Absolute Lymphocytes 0.74 k/cumm (1.2-3.4) L 01/13/19 06:20 Absolute Monocytes 0.70 k/cumm (0.11-0.7) 01/13/19 06:20 Absolute Eosinophils 0.02 k/cumm (0.0-0.7) 01/13/19 06:20 Absolute Basophils 0.02 k/cumm (0.0-0.2) 01/13/19 06:20 Differential Comment Diff reviewed 01/13/19 06:20 RBC Morphology See below 01/13/19 06:20 Poikilocytosis 1+ 01/13/19 06:20 Sodium 143 mmol/L (136-145) 01/13/19 06:20 Potassium 4.7 mmol/L (3.5-5.1) 01/13/19 06:20 Chloride 101 mmol/L (98-107) 01/13/19 06:20 Carbon Dioxide 38.8 mmol/L (21.0-32.0) H 01/13/19 06:20 Anion Gap 3.2 mmol/L (3-11) 01/13/19 06:20 BUN 25 mg/dL (7-18) H 01/13/19 06:20 Creatinine 0.64 mg/dL (0.70-1.30) L 01/13/19 06:20 Estimated GFR/1.73 m2 >= 60.00 (mL/min/1.73m2) 01/13/19 06:20 Glucose 178 mg/dL (70-100) H 01/13/19 06:20 Calcium 8.9 mg/dL (8.5-10.1) 01/13/19 06:20 Magnesium 1.8 mg/dL (1.8-2.4) 01/13/19 06:20 Total Bilirubin 0.2 mg/dL (0.2-1.0) 01/07/19 08:30 AST < 5 U/L (15-37) L 01/07/19 08:30 ALT 17 U/L (12-78) 01/07/19 08:30 Alkaline Phosphatase 108 U/L (46-116) 01/07/19 08:30 Troponin I < 0.05 ng/mL (0.00-0.06) 01/07/19 08:30 NT-Pro-B Natriuret Pep 57 pg/mL (-299) 01/07/19 08:30 Total Protein 7.1 g/dL (6.4-8.2) 01/07/19 08:30 Albumin 3.9 g/dL (3.4-5.0) 01/07/19 08:30
--- NOTE | 2019-01-13 15:07 | PGE_ITS ---
Date of Service Date of service: 01/13/19 Time of Service: 15:01 Assessment and Plan (1) Acute exacerbation of chronic obstructive pulmonary disease (COPD): Current visit: Yes Status: Acute Received 5 days of antibiotics with a negative CXR. Sputum cultures unrevealing. Continue Steroids, but given unchanged symptoms previously IV Solumedrol was increased previously, and today patient appears improved. Continue duonebs, Budesonide, and supplemental O2. Patient has significant underlying COPD - reports normally taking 5-10 days for resolution of his acute exacerbations in the past. Per discussion with his PCP he is hospitalized once every 4-6 months, and has nearly monthly ED visits. (2) Hypertension: Current visit: Yes Status: Chronic Continue Diltiazem. (3) GERD (gastroesophageal reflux disease): Current visit: Yes Status: Chronic On PPI therapy. (4) DVT prophylaxis: Current visit: Yes Status: Acute On SCDs, TEDs given history of Celerebllar Hemorrhage. (5) Advance directive on file: Current visit: Yes Status: Acute Full Code. Subjective Interval history since last seen: 63 year old man with a prior history of Oxygen dependent COPD, admitted from [facility] Emergency Department with a diagnosis of acute COPD Exacerbation. Mr. Alston has a past Medical History significant for severe COPD, with chronic hypoxic respiratory failure on a reported 5L of O2 at home. He also has a histo ry of CAD with prior ME, TIA, and Cerebellar Hemorrhage. The patient normally receives his medical care in [facility], but was brought to [facility] by ambulance due to worsening dyspnea over the course of the prior month. He also reported a cough productive of white sputum and subjective fevers. The patient was admitted for treatment of likely acute exacerbation of his underlying COPD. This morning Mr. Alston appears slightly improved. Sputum cultures were suspicious for oral contaminant, and repeat cultures are unrevealing. His WBC continues to be elevated, but improved previous and now stable - He also remains afebrile and on IV Steroids. No overnight events reports. Exam Narrative Exam Narrative: General: Patient appears comfortable, AAOX3, NAD. Chronically reported impaired speech noted. Neck: Supple CV: Regular, nontachycardic, S1S2, No rubs, murmurs, or gallops. Pulmonary: Significantly diminished breath sounds, no rhonchi. Minimal wheezing improved. Overall unchanged. Abdomen: + Bowel Sounds, soft, nontender, nondistended Vascular: No lower extremity edema Psych: Normal mood and affect. Objective Objective Clinical Data: Abnormal lab results 01/13/19 01/13/19 Range/Units 06:20 06:20 WBC 15.83 H (4.4-10.8) k/cumm Hgb 13.4 L (13.5-17.5) g/dL MCH 26.8 L (27.0-33.0) pg MCHC 30.0 L (32.0-36.0) g/dL RDW 14.3 H (11.8-14.1) % Absolute Neutrophils 14.03 H (1.2-6.7) k/cumm Absolute Lymphocytes 0.74 L (1.2-3.4) k/cumm Carbon Dioxide 38.8 H (21.0-32.0) mmol/L BUN 25 H (7-18) mg/dL Creatinine 0.64 L (0.70-1.30) mg/dL Glucose 178 H (70-100) mg/dL Vital Signs Temperature 36.3 C L 01/13/19 11:30 Temperature Source Tympanic 01/13/19 11:30 Pulse 98 H 01/13/19 11:30 Pulse Rhythm Regular 01/13/19 10:46 Pulse 97 H 01/07/19 08:40 Respiratory Rate 21 01/13/19 11:30 Respiratory Effort 01/13/19 10:46 Respiratory Depth Deep 01/13/19 10:46 Respiratory Pattern Normal 01/13/19 10:46 Blood Pressure 159/90 H 01/13/19 11:30 Blood Pressure Mean 96 01/07/19 08:32 Blood Pressure Position Sitting 01/07/19 08:21 Pulse Oximetry 97 01/13/19 11:30 Respiratory End-tidal CO2 41 01/07/19 08:40 Oxygen Delivery Method Nasal Cannula 01/13/19 11:30 Oxygen Flow Rate 4 01/13/19 11:30 Pain Level 0 01/13/19 07:30 Comment 01/12/19 03:50 Intake & Output 01/12/19 01/13/19 01/13/19 23:59 11:59 23:59 Intake Total 500 / 840 760 / 1000 240 / 1000 Output Total 550 / 1175 950 / 950 Balance -50 / -335 -190 / 50 240 / 50 Weight 71.7 kg Intake: IV 20 Oral 480 / 820 740 / 980 240 / 980 Output: Urine 550 / 1175 950 / 950 Other: Urine Color Light Elly Yellow Urine Appearance Clear Clear Urine Odor Strong None Comment DARK YELLOW URINE IN UJRINAL Voiding Methods Urinal Toilet Laboratory Results WBC 15.83 k/cumm (4.4-10.8) H 01/13/19 06:20 RBC 5.00 m/cumm (4.50-6.00) 01/13/19 06:20 Hgb 13.4 g/dL (13.5-17.5) L 01/13/19 06:20 Hct 44.6 % (40.0-50.0) 01/13/19 06:20 MCV 89.2 fL (80-95) 01/13/19 06:20 MCH 26.8 pg (27.0-33.0) L 01/13/19 06:20 MCHC 30.0 g/dL (32.0-36.0) L 01/13/19 06:20 RDW 14.3 % (11.8-14.1) H 01/13/19 06:20 Plt Count 379 x1000/uL (130-400) 01/13/19 06:20 MPV 9.4 fL (8.0-11.0) 01/13/19 06:20 Immature Gran % 2.1 01/13/19 06:20 Neutrophils % 88.6 01/13/19 06:20 Lymphocytes % 4.7 01/13/19 06:20 Monocytes % 4.4 01/13/19 06:20 Eosinophils % 0.1 01/13/19 06:20 Basophils % 0.1 01/13/19 06:20 Absolute Neutrophils 14.03 k/cumm (1.2-6.7) H 01/13/19 06:20 Absolute Lymphocytes 0.74 k/cumm (1.2-3.4) L 01/13/19 06:20 Absolute Monocytes 0.70 k/cumm (0.11-0.7) 01/13/19 06:20 Absolute Eosinophils 0.02 k/cumm (0.0-0.7) 01/13/19 06:20 Absolute Basophils 0.02 k/cumm (0.0-0.2) 01/13/19 06:20 Differential Comment Diff reviewed 01/13/19 06:20 RBC Morphology See below 01/13/19 06:20 Poikilocytosis 1+ 01/13/19 06:20 Sodium 143 mmol/L (136-145) 01/13/19 06:20 Potassium 4.7 mmol/L (3.5-5.1) 01/13/19 06:20 Chloride 101 mmol/L (98-107) 01/13/19 06:20 Carbon Dioxide 38.8 mmol/L (21.0-32.0) H 01/13/19 06:20 Anion Gap 3.2 mmol/L (3-11) 01/13/19 06:20 BUN 25 mg/dL (7-18) H 01/13/19 06:20 Creatinine 0.64 mg/dL (0.70-1.30) L 01/13/19 06:20 Estimated GFR/1.73 m2 >= 60.00 (mL/min/1.73m2) 01/13/19 06:20 Glucose 178 mg/dL (70-100) H 01/13/19 06:20 Calcium 8.9 mg/dL (8.5-10.1) 01/13/19 06:20 Magnesium 1.8 mg/dL (1.8-2.4) 01/13/19 06:20 Total Bilirubin 0.2 mg/dL (0.2-1.0) 01/07/19 08:30 AST < 5 U/L (15-37) L 01/07/19 08:30 ALT 17 U/L (12-78) 01/07/19 08:30 Alkaline Phosphatase 108 U/L (46-116) 01/07/19 08:30 Troponin I < 0.05 ng/mL (0.00-0.06) 01/07/19 08:30 NT-Pro-B Natriuret Pep 57 pg/mL (-299) 01/07/19 08:30 Total Protein 7.1 g/dL (6.4-8.2) 01/07/19 08:30 Albumin 3.9 g/dL (3.4-5.0) 01/07/19 08:30
--- NOTE | 2019-01-13 16:09 | PT.INTREAT ---
Date of service: 01/13/19 Time of Service: 10:42 PT Notes Inpatient Physical Therapy Treatment Note [facility] Date: 01/13/2019 PRECAUTIONS:Fall. Standard. Activity as tolerated. SUBJECTIVE: Patient reports that he still remains out of breath with the slightest activity but is able to bounce back up when oxygen supplementation is ramped up to 4-6L/minute while lying in bed before mobility activity. He complained of being lightheaded after a short walk this am but which subsided with rest. OBJECTIVE: Patient remains on continuous oxygen supplementation between 3-5 L/min via NC. PAIN: 0/10 BED MOBILITY/TRANSFERS Supine-sit: I Sit-supine: I Sit-stand: I Stand-sit: I Bed-Chair: I Chair-bed: I GAIT Assistive Device: No AD, gait belt Weight bearing: FWB Assist: SBA Distance: 30' + 10' + 40' in the morning session. 30' +10' + 40 feet in the afternoon session Deviation: Patient tends to walk too fast and has a hard time performing pulsed lip breathing despite maximum verbal cueing. Patient did have LOB during the morning session but was able to catch himself without assist from this PT. VITALS: Oxygen saturation ranged between 92-96% on 6L/min throughout gait activity and aerobic exercises. THEREX: AM session- Patient tolerated a total of 51 steps for a total of 2:03 minutes with a resistance/load of 6 on the NuStep machine. Patient was instructed to do 1 minute of stepping and one minute of resting. PM session- Patient tolerated a total of 155 steps for a total of 4:37 minutes with a resistance/load of 6 on the NuStep machine. ASSESSMENT: Patient continues to demonstrate increased activity tolerance with level surface ambulation distance as well as with exercise performance. He demonstrates increased exercise participation and increased complaince with recommended tasks. PLAN: Will continue to work on establishing an aerobic exercise program that will facilitate increased cardiorespiratory endurance. TREATMENT CODE/TIME: AM session [id number] x 25 minutes, [id number] x 17 minutes beginning at 10:42 AM. PM session [id number] x 15 minutes, [id number] x 13 minutes beginning at 16:21 PM.
--- NOTE | 2019-01-13 16:14 | PTTR_ITS ---
Date of service: 01/13/19 Time of Service: 10:42 PT Notes Inpatient Physical Therapy Treatment Note [facility] Date: 01/13/2019 PRECAUTIONS:Fall. Standard. Activity as tolerated. SUBJECTIVE: Patient reports that he still remains out of breath with the slightest activity but is able to bounce back up when oxygen supplementation is ramped up to 4-6L/minute while lying in bed before mobility activity. He complained of being lightheaded after a short walk this am but which subsided with rest. OBJECTIVE: Patient remains on continuous oxygen supplementation between 3-5 L/min via NC. PAIN: 0/10 BED MOBILITY/TRANSFERS Supine-sit: I Sit-supine: I Sit-stand: I Stand-sit: I Bed-Chair: I Chair-bed: I GAIT Assistive Device: No AD, gait belt Weight bearing: FWB Assist: SBA Distance: 30' + 10' + 40' in the morning session. 30' +10' + 40 feet in the afternoon session Deviation: Patient tends to walk too fast and has a hard time performing pulsed lip breathing despite maximum verbal cueing. Patient did have LOB during the morning session but was able to catch himself without assist from this PT. VITALS: Oxygen saturation ranged between 92-96% on 6L/min throughout gait activity and aerobic exercises. THEREX: AM session- Patient tolerated a total of 51 steps for a total of 2:03 minutes with a resistance/load of 6 on the NuStep machine. Patient was instructed to do 1 minute of stepping and one minute of resting. PM session- Patient tolerated a total of 155 steps for a total of 4:37 minutes with a resistance/load of 6 on the NuStep machine. ASSESSMENT: Patient continues to demonstrate increased activity tolerance with level surface ambulation distance as well as with exercise performance. He demonstrates increased exercise participation and increased complaince with recommended tasks. PLAN: Will continue to work on establishing an aerobic exercise program that will facilitate increased cardiorespiratory endurance. TREATMENT CODE/TIME: AM session 27040 x 25 minutes, [id number] x 17 minutes beginning at 10:42 AM. PM session [id number] x 15 minutes, [id number] x 13 minutes beginning at 16:21 PM.
--- NOTE | 2019-01-13 16:25 | PDOC.CMPRO ---
Care Management Progress Note S/O: Dave was lying in bed when CM met with him. His sister called and reported she would like Dave to call her, CM let Dave know and he reported he did not want to talk to her as she would report everything he said back to her , who he is currently not happy with. Dave reported he planned on returning home where he lives with his sister and MABEL via [facility]. CM continues to follow. A: Dave is a 63 year old male admitted to [facility] on 01/07/19 with Acute Exacerbation of COPD P: Dave is being treated with IV steroids, and oral antibiotics. He will be discharged to home when medically ready per provider. He will be evaluated for increased services prior to discharge. He will resume current supports through [facility] including his community development technician Mariana Cordon, STAGE DIRECTOR, HC, RN, and LTC CFC. CM will continue to provide support regarding discharge planning and disposition. Dave reported he will transport via [facility].
[2019-01-13] MEDS: Acetaminophen 325 MG TAB PO (20:45)
[2019-01-14] VITALS (13 sets, daily range): BP systolic 131–170; BP diastolic 89–93; PULSE 86–107; RESP 4–28; TEMP 35.6–36.9; O2SAT 74–97
[2019-01-14] MEDS: methylPREDNISolone SUCC 40 MG VIAL 60 MG IVP ×4 (02:01→21:26)
[2019-01-14] MEDS: Normal Saline Flush 10 ML SYR IVP ×2 (02:02→21:27)
[2019-01-14] MEDS: Albuterol 2.5 MG/3 ML INH SOLN VIAL UPD (02:02)
[2019-01-14] MEDS: Albuterol/Ipratropium 3 ML UPD VIAL UPD ×4 (04:35→20:04)
[2019-01-14] MEDS: Benzonatate 200 MG CAP PO ×3 (06:18→21:26)
[2019-01-14 07:23] LABS: Abs Immature Grans 0.61 k/cumm (0.0-0.09); HCT 43.8 % (40.0-50.0); HGB 13.2 g/dL (13.5-17.5); Mean Corp. HGB Concentration 30.1 g/dL (32.0-36.0); Mean Corpuscular Hemoglobin 26.7 pg (27.0-33.0); Mean Corpuscular Volume 88.7 fL (80-95); Mean Platelet Volume 9.2 fL (8.0-11.0); Platelet Count 395 x1000/uL (130-400); RBC 4.94 m/cumm (4.50-6.00); RBC Distribution Width 14.3 % (11.8-14.1); White Blood Cell Count 20.88 k/cumm (4.4-10.8)
[2019-01-14 07:36] LABS: Anion Gap 4.1 mmol/L (3-11); BUN 26 mg/dL (7-18); CO2 38.9 mmol/L (21.0-32.0); Calcium 8.7 mg/dL (8.5-10.1); Chloride 99 mmol/L (98-107); Glucose 156 mg/dL (70-100); Magnesium 1.9 mg/dL (1.8-2.4); Sodium 142 mmol/L (136-145)
[2019-01-14 08:03] LABS: Absolute Lymphocyte Count 1.25 k/cumm (1.2-3.4); Absolute Monocyte Count 1.46 k/cumm (0.11-0.7); Absolute Neutrophil Count 17.75 k/cumm (1.2-6.7); Diff Comment Manual Differential
[2019-01-14 08:04] LABS: Hypochromasia 2+; Microcytosis 1+
[2019-01-14] MEDS: dilTIAZem CD 120 MG CAPCR PO (09:44)
[2019-01-14] MEDS: Aspirin 325 MG TAB PO (09:44)
[2019-01-14] MEDS: Pantoprazole 40 MG TABCR PO (09:44)
[2019-01-14] MEDS: Magnesium Oxide 400 MG TAB PO (09:45)
[2019-01-14] MEDS: guaiFENesin 600 MG TABCR PO ×2 (09:45→20:04)
--- NOTE | 2019-01-14 13:25 | PGE_ITS ---
Date of Service Date of service: 01/14/19 Time of Service: 13:25 Assessment and Plan (1) Acute exacerbation of chronic obstructive pulmonary disease (COPD): Current visit: Yes Status: Acute Received 5 days of antibiotics with a negative CXR. Sputum cultures unrevealing. Patient has failed to progress despite optimized IV Steroids, standing duonebs and Budesonide, and supplemental O2. Patient has significant underlying COPD - reports normally taking 5-10 days for resolution of his acute exacerbations in the past. Per discussion with his PCP he is hospitalized once every 4-6 months, and has nearly monthly ED visits. Check CXR to ensure lack of other pathology. Discussed potential use of NIPPV such as Trilogy acutely while patient is admitted. (2) Hypertension: Current visit: Yes Status: Chronic Continue Diltiazem. Current pressures elevated in setting of high dose steroid use - monitor, and consider addition of CCB therapy acutely. (3) GERD (gastroesophageal reflux disease): Current visit: Yes Status: Chronic On PPI therapy. (4) DVT prophylaxis: Current visit: Yes Status: Acute On SCDs, TEDs given history of Celerebllar Hemorrhage. (5) Advance directive on file: Current visit: Yes Status: Acute Full Code. Subjective Interval history since last seen: 63 year old man with a prior history of Oxygen dependent COPD, admitted from [facility] Emergency Department with a diagnosis of acu te COPD Exacerbation. Mr. Alston has a past Medical History significant for severe COPD, with chronic hypoxic respiratory failure on a reported 5L of O2 at home. He also has a history of CAD with prior [place], TIA, and Cerebellar Hemorrhage. The patient normally receives his medical care in [facility], but was brought to [facility] by ambulance due to worsening dyspnea over the course of the prior month. He also reported a cough productive of white sputum and subjective fevers. The patient was admitted for treatment of likely acute exacerbation of his underlying COPD. This morning Mr. Alston appears again unchanged and without significant progress. Sputum cultures were suspicious for oral contaminant, and repeat cultures are unrevealing. His WBC continues to be elevated and appears to be steroid dependent. He remains afebrile. No overnight events reports. Exam Narrative Exam Narrative: General: Patient appears comfortable, AAOX3, NAD. Chronically reported impaired speech noted. Neck: Supple CV: Regular, nontachycardic, S1S2, No rubs, murmurs, or gallops. Pulmonary: Significantly diminished breath sounds, mildly rhonchorous. Minimal wheezing again noted. Overall unchanged. Abdomen: + Bowel Sounds, soft, nontender, nondistended Vascular: No lower extremity edema Psych: Normal mood and affect. Objective Objective Clinical Data: Abnormal lab results 01/14/19 01/14/19 Range/Units 06:50 06:50 WBC 20.88 H D (4.4-10.8) k/cumm Hgb 13.2 L (13.5-17.5) g/dL MCH 26.7 L (27.0-33.0) pg MCHC 30.1 L (32.0-36.0) g/dL RDW 14.3 H (11.8-14.1) % Absolute Neutrophils 17.75 H (1.2-6.7) k/cumm Absolute Monocytes 1.46 H (0.11-0.7) k/cumm Carbon Dioxide 38.9 H (21.0-32.0) mmol/L BUN 26 H (7-18) mg/dL Creatinine 0.60 L (0.70-1.30) mg/dL Glucose 156 H (70-100) mg/dL Vital Signs Temperature 36.6 C 01/14/19 11:54 Temperature Source Tympanic 01/14/19 11:54 Pulse 90 01/14/19 11:54 Pulse Rhythm Regular 01/14/19 10:06 Pulse 97 H 01/07/19 08:40 Respiratory Rate 28 H 01/14/19 11:54 Respiratory Effort 01/14/19 10:06 Respiratory Depth Shallow 01/14/19 10:06 Respiratory Pattern Tachypnea 01/14/19 10:06 Blood Pressure 170/93 H 01/14/19 11:54 Blood Pressure Mean 96 01/07/19 08:32 Blood Pressure Position Sitting 01/07/19 08:21 Pulse Oximetry 94 L 01/14/19 11:54 Respiratory End-tidal CO2 41 01/07/19 08:40 Oxygen Delivery Method Nasal Cannula 01/14/19 11:54 Oxygen Flow Rate 4 01/14/19 11:54 Pain Level 8 01/14/19 11:54 Comment 01/12/19 03:50 Intake & Output 01/13/19 01/14/19 01/14/19 23:59 11:59 23:59 Intake Total 240 / 1000 490 / 730 240 / 730 Output Total 400 / 1350 Balance -160 / -350 490 / 730 240 / 730 Weight 71.8 kg Intake: IV Oral 240 / 980 480 / 720 240 / 720 Output: Urine 400 / 1350 Other: Urine Color Yellow Yellow Urine Appearance Clear Clear Urine Odor Normal Normal Stool Size Moderate Stool Characteristics Soft Formed Brown Voiding Methods Urinal Toilet Laboratory Results WBC 20.88 k/cumm (4.4-10.8) H D 01/14/19 06:50 RBC 4.94 m/cumm (4.50-6.00) 01/14/19 06:50 Hgb 13.2 g/dL (13.5-17.5) L 01/14/19 06:50 Hct 43.8 % (40.0-50.0) 01/14/19 06:50 MCV 88.7 fL (80-95) 01/14/19 06:50 MCH 26.7 pg (27.0-33.0) L 01/14/19 06:50 MCHC 30.1 g/dL (32.0-36.0) L 01/14/19 06:50 RDW 14.3 % (11.8-14.1) H 01/14/19 06:50 Plt Count 395 x1000/uL (130-400) 01/14/19 06:50 MPV 9.2 fL (8.0-11.0) 01/14/19 06:50 Immature Gran % See Differential 01/14/19 06:50 85.0 01/14/19 06:50 6.0 01/14/19 06:50 7.0 01/14/19 06:50 0.0 01/14/19 06:50 0.0 01/14/19 06:50 2.0 % 01/14/19 06:50 Absolute Neutrophils 17.75 k/cumm (1.2-6.7) H 01/14/19 06:50 Absolute Lymphocytes 1.25 k/cumm (1.2-3.4) 01/14/19 06:50 Absolute Monocytes 1.46 k/cumm (0.11-0.7) H 01/14/19 06:50 Absolute Eosinophils 0.00 k/cumm (0.0-0.7) 01/14/19 06:50 Absolute Basophils 0.00 k/cumm (0.0-0.2) 01/14/19 06:50 Manual differential 01/14/19 06:50 RBC Morphology See below 01/14/19 06:50 2+ 01/14/19 06:50 1+ 01/13/19 06:20 1+ 01/14/19 06:50 Sodium 142 mmol/L (136-145) 01/14/19 06:50 Potassium 4.0 mmol/L (3.5-5.1) 01/14/19 06:50 Chloride 99 mmol/L (98-107) 01/14/19 06:50 Carbon Dioxide 38.9 mmol/L (21.0-32.0) H 01/14/19 06:50 4.1 mmol/L (3-11) 01/14/19 06:50 BUN 26 mg/dL (7-18) H 01/14/19 06:50 0.60 mg/dL (0.70-1.30) L 01/14/19 06:50 >= 60.00 (mL/min/1.73m2) 01/14/19 06:50 Glucose 156 mg/dL (70-100) H 01/14/19 06:50 Calcium 8.7 mg/dL (8.5-10.1) 01/14/19 06:50 Magnesium 1.9 mg/dL (1.8-2.4) 01/14/19 06:50 0.2 mg/dL (0.2-1.0) 01/07/19 08:30 AST < 5 U/L (15-37) L 01/07/19 08:30 ALT 17 U/L (12-78) 01/07/19 08:30 108 U/L (46-116) 01/07/19 08:30 < 0.05 ng/mL (0.00-0.06) 01/07/19 08:30 NT-Pro-B Natriuret Pep 57 pg/mL (-299) 01/07/19 08:30 7.1 g/dL (6.4-8.2) 01/07/19 08:30 3.9 g/dL (3.4-5.0) 01/07/19 08:30
[2019-01-14 15:35] LABS: HCO3 41 mmol/L (22-28); Site Right Radial; pH 7.39 (7.35-7.45); pO2 86 mmHg (83-108); sO2 97 % (94-98); tCO2 38 mmol/L (22-29)
[2019-01-14 15:39] LABS: pCO2 69 mmHg (34-47)
--- NOTE | 2019-01-14 15:50 | PFT_ITS ---
PULMONARY FUNCTION TEST REPORT DATE OF SERVICE: January 14, 2019 REQUESTING PROVIDER: Medardo Huitron M.D. Spirometry shows extremely severe obstructive airways disease with significant bronchodilator response. IMPRESSION: Extremely severe obstructive airways disease with significant bronchodilator response. When this study was compared to previous one from 09/17/13, the patient has a 470 cc's improvement in FVC; FEV1 has remained stable. Clinical correlation recommended. DENNY/james D/
--- NOTE | 2019-01-14 16:33 | PDOC.CMPRO ---
Care Management Progress Note S/O: Dave was lying in bed, he continues to communicate openly and appropriately with staff. Per Abby; RT, Trilogy machine is being coordinated for Dave to have at home for discharge. CM continues to follow. A: Dave is a 63 year old male admitted to [facility] on 01/07/19 with Acute Exacerbation of COPD P: Dave continues to be treated with IV steroids, and oral antibiotics. He will be discharged to home when medically ready per provider. He will be evaluated for increased services prior to discharge. He will resume current supports through [facility] including his community program assistant Mariana Cordon, ACCOUNT MANAGER FOREST SERVICE, HC, RN, and LTC CFC. CM will continue to provide support regarding discharge planning and disposition. Dave reported he will transport via [facility] [place].
--- NOTE | 2019-01-14 17:30 | DI.RAD_ITS ---
SYMPTOM/DIAGNOSIS: COPD FRONTAL AND LATERAL CHEST: Comparison is made with 08/27/13 and 01/07/19. Heart size and pulmonary vasculature are within normal limits. No infiltrates are seen. There is pleural scarring present. No definite effusion is present. No pneumothorax is present. The lungs are hyperinflated consistent with underlying COPD. IMPRESSION: No acute pulmonary process.
--- NOTE | 2019-01-14 17:44 | DI.VRAD_ITS ---
EXAM: XR Chest, 2 Views EXAM DATE/TIME: 01/14/2019 1:25 PM CLINICAL HISTORY: 63 years old, male; Other: Copd TECHNIQUE: Imaging protocol: XR of the chest, 2 views. COMPARISON: CR XR PORTABLE CHEST AP 01/07/2019 8:28 AM FINDINGS: Lungs: There is no evidence of an infiltrate. Pleural space: There is blunting of the left costophrenic angle which could represent a small left pleural effusion. Heart/Mediastinum: The cardiac, mediastinal and hilar silhouettes are unremarkable. Bones/joints: Unremarkable. Other findings: There is flattening of the diaphragms bilaterally. There is slight increased AP diameter. IMPRESSION: Suspect COPD as above. Small left pleural effusion. Dictated and Authenticated by: Cruz Bell MD. Ordering:MANDIE Neumann MD
--- NOTE | 2019-01-14 18:30 | PT.INTREAT ---
Date of service: 01/14/19 Time of Service: 10:05 PT Notes Inpatient Physical Therapy Treatment Note [facility] Date: 01/14/2019 PRECAUTIONS: Fall. Standard. Activity as tolerated. SUBJECTIVE: Patient conitnues to report that he still remains out of breath with the slightest activity but is able to bounce back up when oxygen supplementation is ramped up to 4-6L/minute while lying in bed before mobility activity. He states that this has been how he has been managing at home. He constantly has been talking about how he would prefer not having to deal with his [id number] when he comes home. OBJECTIVE: Patient remains on continuous oxygen supplementation between 3-5 L/min via NC. PAIN: 0/10 BED MOBILITY/TRANSFERS Supine-sit: I Sit-supine: I Sit-stand: I Stand-sit: I Bed-Chair: I Chair-bed: I GAIT Assistive Device: No AD, gait belt Weight bearing: FWB Assist: SBA Distance: 40' + 40' in the morning session. Deviation: Unremarkable. No LOB noted during this session. VITALS: Oxygen saturation ranged between 87%-94% on 6L/min throughout gait activity and aerobic exercises. THEREX: AM session- Patient tolerated a total of 381 steps for a total of 6:39 minutes with a resistance/load of 6 on the NuStep machine but had to require more rest time before he could walk back to his room. ASSESSMENT: Patient continues to demonstrate increased activity tolerance with level surface ambulation distance as well as with exercise performance. He demonstrates increased exercise participation and increased complaince with recommended tasks. PLAN: Will continue to work on establishing an aerobic exercise program that will facilitate increased cardiorespiratory endurance. TREATMENT CODE/TIME: [id number] x 55 minutes beginning at 10:05 AM.
[2019-01-14] MEDS: Budesonide 0.5 MG/2 ML UPD VIAL UPD (20:05)
[2019-01-15] VITALS (13 sets, daily range): BP systolic 137–169; BP diastolic 72–96; PULSE 67–112; RESP 4–28; TEMP 36.4–36.8; O2SAT 91–100
[2019-01-15] MEDS: Albuterol/Ipratropium 3 ML UPD VIAL UPD ×5 (00:46→20:15)
[2019-01-15] MEDS: methylPREDNISolone SUCC 40 MG VIAL 60 MG IVP ×4 (02:14→20:16)
[2019-01-15] MEDS: Normal Saline Flush 10 ML SYR IVP (02:14)
[2019-01-15] MEDS: Benzonatate 200 MG CAP PO ×3 (06:25→22:38)
[2019-01-15 07:34] LABS: Abs Immature Grans 1.16 k/cumm (0.0-0.09); HGB 13.3 g/dL (13.5-17.5); Mean Corp. HGB Concentration 30.2 g/dL (32.0-36.0); Mean Corpuscular Hemoglobin 26.8 pg (27.0-33.0); Mean Corpuscular Volume 88.5 fL (80-95); Mean Platelet Volume 9.3 fL (8.0-11.0); Platelet Count 384 x1000/uL (130-400); RBC 4.97 m/cumm (4.50-6.00); RBC Distribution Width 14.5 % (11.8-14.1)
[2019-01-15 07:57] LABS: Absolute Monocyte Count 1.43 k/cumm (0.11-0.7)
[2019-01-15 08:12] LABS: Absolute Lymphocyte Count 0.95 k/cumm (1.2-3.4); Absolute Neutrophil Count 20.47 k/cumm (1.2-6.7); Diff Comment Manual Differential
[2019-01-15 08:13] LABS: Poikilocytes 2+
[2019-01-15 08:31] LABS: Anion Gap 3.8 mmol/L (3-11); BUN 25 mg/dL (7-18); CO2 38.2 mmol/L (21.0-32.0); Calcium 8.4 mg/dL (8.5-10.1); Chloride 99 mmol/L (98-107); Glucose 144 mg/dL (70-100); Magnesium 1.8 mg/dL (1.8-2.4); Potassium 4.4 mmol/L (3.5-5.1); Sodium 141 mmol/L (136-145)
[2019-01-15] MEDS: Pantoprazole 40 MG TABCR PO (09:26)
[2019-01-15] MEDS: dilTIAZem CD 120 MG CAPCR PO (09:27)
[2019-01-15] MEDS: guaiFENesin 600 MG TABCR PO ×2 (09:27→20:15)
[2019-01-15] MEDS: Aspirin 325 MG TAB PO (09:27)
--- NOTE | 2019-01-15 09:58 | CMPROGNOTE_ITS ---
Care Management Progress Note S/O: Dave met with Palliative Care Dr. Everett today. Lisahenrietta Mirza reports working with Martha on identifying and adult family shelter. Dave remains agreeable to discharge plan. No change to overall plan. A: Dave is a 63 year old male admitted to [facility] on 01/07/19 with Acute Exacerbation of COPD P: Dave continues to be treated with IV steroids, and oral antibiotics. He will be discharged home when medically ready per provider, per RT he will have a new Trilogy unit to support his respiratory function. Palliative Care consult or dered and faxed to PC office 01/15. Dave will resume current supports through [facility] including his community health nurse Mariana Cordon, PLANT MACHINIST, HC, RN, and LTC CFC. CM will continue to provide support regarding discharge planning and disposition. Dave reported he will transport via [facility].
--- NOTE | 2019-01-15 09:58 | PDOC.CMPRO ---
Care Management Progress Note S/O: Dave met with Palliative Care Dr. Everett today. Ilsa Lavgenie reports working with Martha on identifying and adult family senior care. Dave remains agreeable to discharge plan. No change to overall plan. A: Dave is a 63 year old male admitted to [facility] on 01/07/19 with Acute Exacerbation of COPD P: Dave continues to be treated with IV steroids, and oral antibiotics. He will be discharged home when medically ready per provider, per RT he will have a new Trilogy unit to support his respiratory function. Palliative Care consult ordered and faxed to PC office 01/15. Dave will resume current supports through [facility] including his community service specialist Mariana Cordon, CERTIFIED MASSAGE THERAPIST, HC, RN, and LTC CFC. CM will continue to provide support regarding discharge planning and disposition. Dave reported he will transport via [facility].
[2019-01-15] MEDS: Budesonide 0.5 MG/2 ML UPD VIAL UPD ×2 (10:39→20:15)
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
--- NOTE | 2019-01-15 15:25 | W.PM.PROGNOT ---
Date of Service Date of service: 01/15/19 Time of Service: 15:25 Assessment and Plan (1) Acute exacerbation of chronic obstructive pulmonary disease (COPD): Current visit: Yes Status: Acute Received 5 days of antibiotics with a negative CXR. Sputum cultures unrevealing. Patient has failed to progress despite optimized IV Steroids, standing duonebs and Budesonide, and supplemental O2. Patient has significant underlying COPD - reports normally taking 5-10 days for resolution of his acute exacerbations in the past. Per discussion with his PCP he is hospitalized once every 4-6 months, and has nearly monthly ED visits. Repeat CXR negative for acute findings. Discussed potential use of NIPPV such as Trilogy - Patient appears to have chronic Hypercapneic and Hypoxic Respiratory Failure, as witnessed by ABG and chronic O2 need. His PFTs show significant dysfunction, with an FEV1 of 0.54 and FEV1/FVC of 32. He has multiple ED visits and admissions, with continued dyspnea despite optimal therapy. Patient would benefit from NIV therapy, and appears to be medically necessary. Given his current process and his worsening respiratory status standard BiPAP therapy will very likely not meet his ventilation needs, especially given ability for using variety of settings which will better meet the patient's needs. (2) Hypertension: Current visit: Yes Status: Chronic Continue Diltiazem. Current pressures elevated in setting of high dose steroid use - monitor, and consider addition of CCB therapy acutely. (3) GERD (gastroesophageal reflux disease): Current visit: Yes Status: Chronic On PPI therapy. (4) DVT prophylaxis: Current visit: Yes Status: Acute On SCDs, TEDs given history of Celerebllar Hemorrhage. (5) Advance directive on file: Current visit: Yes Status: Acute Full Code. Subjective Interval history since last seen: 63 year old man with a prior history of Oxygen dependent COPD, admitted from [facility] Emergency Department with a diagnosis of acute COPD Exacerbation. Mr. Alston has a past Medical History significant for severe COPD, with chronic hypoxic respiratory failure on a reported 5L of O2 at home. He also has a history of CAD with prior AK, TIA, and Cerebellar Hemorrhage. The patient normally receives his medical care in [facility], but was brought to [facility] by ambulance due to worsening dyspnea over the course of the prior month. He also reported a cough productive of white sputum and subjective fevers. The patient was admitted for treatment of likely acute exacerbation of his underlying COPD. This morning Mr. Alston appears again unchanged and without significant progress. Sputum cultures were suspicious for oral contaminant, and repeat cultures are unrevealing. His WBC continues to be elevated and appears to be steroid dependent. His ABG showed evidence of chronic hypercapnia, and PFTs were significantly abnormal. He is undergoing trial of NIPPV with Trilogy. He remains afebrile. No overnight events reports. Exam Narrative Exam Narrative: General: Patient appears tachypneic, AAOX3, NAD. Chronically reported impaired speech noted. Neck: Supple CV: Regular, nontachycardic, S1S2, No rubs, murmurs, or gallops. Pulmonary: Significantly diminished breath sounds, mildly rhonchorous. No wheezing by exam today. Overall unchanged. Abdomen: + Bowel Sounds, soft, nontender, nondistended Vascular: No lower extremity edema Psych: Normal mood and affect. Objective Objective Clinical Data: Abnormal lab results 01/14/19 01/15/19 01/15/19 Range/Units 15:26 07:10 07:10 WBC 23.80 H (4.4-10.8) k/cumm Hgb 13.3 L (13.5-17.5) g/dL MCH 26.8 L (27.0-33.0) pg MCHC 30.2 L (32.0-36.0) g/dL RDW 14.5 H (11.8-14.1) % Absolute Neutrophils 20.47 H (1.2-6.7) k/cumm Absolute Lymphocytes 0.95 L (1.2-3.4) k/cumm Absolute Monocytes 1.43 H (0.11-0.7) k/cumm pCO2 69 H* (34-47) mmHg ABG HCO3 41 H (22-28) mmol/L ABG Total CO2 38 H (22-29) mmol/L Carbon Dioxide 38.2 H (21.0-32.0) mmol/L BUN 25 H (7-18) mg/dL Creatinine 0.60 L (0.70-1.30) mg/dL Glucose 144 H (70-100) mg/dL Calcium 8.4 L (8.5-10.1) mg/dL Vital Signs Temperature 36.5 C 01/15/19 09:24 Temperature Source Tympanic 01/15/19 09:24 Pulse 90 01/15/19 10:36 Pulse Rhythm Regular 01/15/19 11:05 Pulse 97 H 01/07/19 08:40 Respiratory Rate 24 01/15/19 09:24 Respiratory Effort Incrsd Work of Breathing 01/15/19 11:05 Respiratory Depth Shallow 01/15/19 11:05 Respiratory Pattern Tachypnea 01/15/19 11:05 Blood Pressure 169/96 H 01/15/19 09:24 Blood Pressure Mean 96 01/07/19 08:32 Blood Pressure Position Sitting 01/07/19 08:21 Pulse Oximetry 91 L 01/15/19 11:25 Respiratory End-tidal CO2 41 01/07/19 08:40 Oxygen Delivery Method Nasal Cannula 01/15/19 10:36 Oxygen Flow Rate 4 01/15/19 11:25 Pain Level 0 01/15/19 09:24 Comment 01/12/19 03:50 Intake & Output 01/14/19 01/15/19 01/15/19 23:59 11:59 23:59 Intake Total 240 / 730 130 / 380 250 / 380 Output Total 500 / 500 1000 / 1000 Balance -260 / 230 -870 / -620 250 / -620 Weight 72.4 kg Intake: IV Oral 240 / 720 120 / 370 250 / 370 Output: Urine 500 / 500 1000 / 1000 Other: Urine Color Light Elly Yellow Urine Appearance Clear Clear Urine Odor Normal None Stool Size Large Stool Characteristics Formed Voiding Methods Urinal Urinal Laboratory Results WBC 23.80 k/cumm (4.4-10.8) H 01/15/19 07:10 RBC 4.97 m/cumm (4.50-6.00) 01/15/19 07:10 Hgb 13.3 g/dL (13.5-17.5) L 01/15/19 07:10 Hct 44.0 % (40.0-50.0) 01/15/19 07:10 MCV 88.5 fL (80-95) 01/15/19 07:10 MCH 26.8 pg (27.0-33.0) L 01/15/19 07:10 MCHC 30.2 g/dL (32.0-36.0) L 01/15/19 07:10 RDW 14.5 % (11.8-14.1) H 01/15/19 07:10 Plt Count 384 x1000/uL (130-400) 01/15/19 07:10 MPV 9.3 fL (8.0-11.0) 01/15/19 07:10 Immature Gran % See Differential 01/15/19 07:10 85.0 01/15/19 07:10 1.0 % 01/15/19 07:10 4.0 01/15/19 07:10 6.0 01/15/19 07:10 0.0 01/15/19 07:10 0.0 01/15/19 07:10 2.0 % 01/14/19 06:50 4.0 % 01/15/19 07:10 Absolute Neutrophils 20.47 k/cumm (1.2-6.7) H 01/15/19 07:10 Absolute Lymphocytes 0.95 k/cumm (1.2-3.4) L 01/15/19 07:10 Absolute Monocytes 1.43 k/cumm (0.11-0.7) H 01/15/19 07:10 Absolute Eosinophils 0.00 k/cumm (0.0-0.7) 01/15/19 07:10 Absolute Basophils 0.00 k/cumm (0.0-0.2) 01/15/19 07:10 Manual differential 01/15/19 07:10 RBC Morphology See below 01/15/19 07:10 2+ 01/14/19 06:50 2+ 01/15/19 07:10 1+ 01/14/19 06:50 Sample Site Right radial 01/14/19 15:26 pCO2 69 mmHg (34-47) H* 01/14/19 15:26 pO2 86 mmHg (83-108) 01/14/19 15:26 O2 Saturation 97 % (94-98) 01/14/19 15:26 ABG pH 7.39 (7.35-7.45) 01/14/19 15:26 ABG HCO3 41 mmol/L (22-28) H 01/14/19 15:26 ABG Total CO2 38 mmol/L (22-29) H 01/14/19 15:26 ABG Base Excess mmol/L (-3-3) 01/14/19 15:26 Sodium 141 mmol/L (136-145) 01/15/19 07:10 Potassium 4.4 mmol/L (3.5-5.1) 01/15/19 07:10 Chloride 99 mmol/L (98-107) 01/15/19 07:10 Carbon Dioxide 38.2 mmol/L (21.0-32.0) H 01/15/19 07:10 3.8 mmol/L (3-11) 01/15/19 07:10 BUN 25 mg/dL (7-18) H 01/15/19 07:10 0.60 mg/dL (0.70-1.30) L 01/15/19 07:10 >= 60.00 (mL/min/1.73m2) 01/15/19 07:10 Glucose 144 mg/dL (70-100) H 01/15/19 07:10 Calcium 8.4 mg/dL (8.5-10.1) L 01/15/19 07:10 Magnesium 1.8 mg/dL (1.8-2.4) 01/15/19 07:10 0.2 mg/dL (0.2-1.0) 01/07/19 08:30 AST < 5 U/L (15-37) L 01/07/19 08:30 ALT 17 U/L (12-78) 01/07/19 08:30 108 U/L (46-116) 01/07/19 08:30 < 0.05 ng/mL (0.00-0.06) 01/07/19 08:30 NT-Pro-B Natriuret Pep 57 pg/mL (-299) 01/07/19 08:30 7.1 g/dL (6.4-8.2) 01/07/19 08:30 3.9 g/dL (3.4-5.0) 01/07/19 08:30
--- NOTE | 2019-01-15 15:56 | PT.INTREAT ---
Date of service: 01/15/19 Time of Service: 13:54 PT Notes Inpatient Physical Therapy Treatment Note [facility] Date: 01/15/2019 PRECAUTIONS: Fall. Standard. Activity as tolerated. SUBJECTIVE: Patient states that he managed to sleep good after lunch. He states that the Trilogy treatment may help with his condition as he states he has not slept that good after lunchtime in the past days. However, he complained of being dizzy upon assumption of sitting at edge of bed today. He usually takes about 3-5 minutes from when oxygen supplementation is ramped up to 6L/min before he says that he is good to walk or do anything. Today for this session, he did not reach that going point as he tried to stand up and instead requested that he be allowed to rest. OBJECTIVE: Patient remains on continuous oxygen supplementation between 3-5 L/min via NC. PAIN: 0/10 BED MOBILITY/TRANSFERS Supine-sit: I Sit-supine: I Sit-stand:CGA Stand-sit: CGA Patient refused to do any exercises today and requested that session be done tomorrow instead. THEREX: Patient refused to do any exercises today and requested that session be done tomorrow instead.AM session- Patient tolerated a total of 381 steps for a total of 6:39 minutes with a resistance/load of 6 on the NuStep machine but had to require more rest time before he could walk back to his room. ASSESSMENT: Negligible gains achieved in terms of ambulation tolerance thus far. Patient did improve, albeit minimally, on his ability to tolerate low intensity aerobic exercise with NuStep machine with increased tolerance from 1 minute to 3:20 conitnuous minute of pedalling before desaturating to below 88% on 4 L/min on 01/14/2019 session. PLAN: Will continue to work on establishing an aerobic exercise program that will facilitate increased cardiorespiratory endurance. TREATMENT CODE/TIME: 72962 x 21 minutes beginning at 13:54 AM.
[2019-01-16] VITALS (10 sets, daily range): BP systolic 115–164; BP diastolic 75–97; PULSE 85–111; RESP 1–28; TEMP 36.2–37.3; O2SAT 93–99
[2019-01-16] MEDS: Albuterol/Ipratropium 3 ML UPD VIAL UPD ×6 (02:47→23:47)
[2019-01-16] MEDS: methylPREDNISolone SUCC 40 MG VIAL 60 MG IVP ×4 (02:48→23:47)
[2019-01-16] MEDS: Benzonatate 200 MG CAP PO ×3 (05:35→22:00)
[2019-01-16 07:34] LABS: Anion Gap 0.3 mmol/L (3-11); BUN 28 mg/dL (7-18); CO2 40.7 mmol/L (21.0-32.0); CREATININE 0.55 mg/dL (0.70-1.30); Calcium 8.4 mg/dL (8.5-10.1); Chloride 101 mmol/L (98-107); Glucose 135 mg/dL (70-100); Magnesium 2.1 mg/dL (1.8-2.4); Potassium 4.2 mmol/L (3.5-5.1); Sodium 142 mmol/L (136-145)
[2019-01-16 07:41] LABS: Abs Immature Grans 1.22 k/cumm (0.0-0.09); HCT 42.3 % (40.0-50.0); HGB 12.9 g/dL (13.5-17.5); Mean Corp. HGB Concentration 30.5 g/dL (32.0-36.0); Mean Corpuscular Hemoglobin 26.9 pg (27.0-33.0); Mean Corpuscular Volume 88.1 fL (80-95); Mean Platelet Volume 9.6 fL (8.0-11.0); Platelet Count 325 x1000/uL (130-400); RBC Distribution Width 14.7 % (11.8-14.1)
[2019-01-16 07:55] LABS: White Blood Cell Count 25.53 k/cumm (4.4-10.8)
[2019-01-16] MEDS: Budesonide 0.5 MG/2 ML UPD VIAL UPD ×2 (08:14→20:15)
[2019-01-16 08:17] LABS: Absolute Neutrophil Count 22.98 k/cumm (1.2-6.7)
[2019-01-16] MEDS: Normal Saline Flush 10 ML SYR IVP ×3 (08:17→23:47)
[2019-01-16 08:18] LABS: Absolute Lymphocyte Count 0.51 k/cumm (1.2-3.4); Absolute Monocyte Count 1.28 k/cumm (0.11-0.7); Diff Comment Manual Differential
[2019-01-16 08:19] LABS: Hypochromasia 1+
[2019-01-16] MEDS: Pantoprazole 40 MG TABCR PO (08:21)
[2019-01-16] MEDS: dilTIAZem CD 120 MG CAPCR PO (08:21)
[2019-01-16] MEDS: guaiFENesin 600 MG TABCR PO ×2 (08:21→20:15)
[2019-01-16] MEDS: Aspirin 325 MG TAB PO (08:21)
[2019-01-16 08:33] LABS: Procalcitonin < 0.1 ng/mL
--- NOTE | 2019-01-16 11:00 | PT.INTREAT ---
Date of service: 01/16/19 Time of Service: 10:05 PT Notes Inpatient Physical Therapy Treatment Note [facility] Date: 01/16/19 PRECAUTIONS: Stgandard/Fall SUBJECTIVE: Pt reports that he is doing better today then yesterday. OBJECTIVE: Supine-sit: SBA Sit-stand: CGA Stand-sit: CGA GAIT Assistive Device: FWW Weight bearing: Full Assist: CGA Distance: to PT room and back VITALS: 6L of oxygen with oxygen in the low 90's with exercise and ambulation THEREX: PT completed the Nu STep for 3 min with [address] due to SOB and fatigue. ASSESSMENT: PT tolerated today's session well. Pt did have some SOB and did require rests. PLAN: Cont as per PT POC. TREATMENT CODE/TIME: 10:05-10:30 (07) [id number]
--- NOTE | 2019-01-16 16:26 | W.PM.PROGNOT ---
Date of Service Date of service: 01/16/19 Time of Service: 16:26 Assessment and Plan (1) Acute exacerbation of chronic obstructive pulmonary disease (COPD): Current visit: Yes Status: Acute with chronic Hypercapneic and Hypoxic Respiratory Failure. Appears to be improving with trilogy. Start to taper IV steroids. Finished 5 days of antibiotics. We are reculturing sputum; however, procalcitonin is negative and it is unlikely that the patient has a bacterial component to his disease at this time. He has not been receiving his daliresp - this we are trying to address. (2) Hypertension: Current visit: Yes Status: Chronic Continue Diltiazem. (3) GERD (gastroesophageal reflux disease): Current visit: Yes Status: Chronic On PPI therapy. (4) DVT prophylaxis: Current visit: Yes Status: Acute On SCDs, TEDs given history of Cerebellar Hemorrhage. (5) Advance directive on file: Current visit: Yes Status: Acute Full Code. Subjective Interval history since last seen: Mr Alston states he is feeling better. He was set up with his own trilogy machine today, which he has been using with great compliance. He continues to feel short of breath and he continues to bring up yellow sputum. Denies dizziness, chest pain, shortness of breath, nausea, vomiting. Exam Narrative Exam Narrative: General: very pleasant middle-aged male with a speech deficit, A&Ox3, wearing his trilogy machine, puts the mask on and takes it off when he needs to talk, coughing. HEENT: EOMI, MMM Heart: RRR, no m/r/g Lungs: Diminished breath sounds B GI: abdomen is soft, nontender, nondistended Extremities: no e/c/c BLE's; R knee cap malshaped Objective Objective Clinical Data: Abnormal lab results 01/16/19 01/16/19 Range/Units 06:38 06:38 WBC 25.53 H* (4.4-10.8) k/cumm Hgb 12.9 L (13.5-17.5) g/dL MCH 26.9 L (27.0-33.0) pg MCHC 30.5 L (32.0-36.0) g/dL RDW 14.7 H (11.8-14.1) % Absolute Neutrophils 22.98 H (1.2-6.7) k/cumm Absolute Lymphocytes 0.51 L (1.2-3.4) k/cumm Absolute Monocytes 1.28 H (0.11-0.7) k/cumm Carbon Dioxide 40.7 H (21.0-32.0) mmol/L Anion Gap 0.3 L (3-11) mmol/L BUN 28 H (7-18) mg/dL Creatinine 0.55 L (0.70-1.30) mg/dL Glucose 135 H (70-100) mg/dL Calcium 8.4 L (8.5-10.1) mg/dL Vital Signs Temperature 36.6 C 01/16/19 15:29 Temperature Source Tympanic 01/16/19 15:29 Pulse 94 H 01/16/19 15:29 Pulse Rhythm Regular 01/16/19 08:15 Pulse 97 H 01/07/19 08:40 Respiratory Rate 22 01/16/19 15:29 Respiratory Effort Incrsd Work of Breathing 01/16/19 08:15 Respiratory Depth Shallow 01/16/19 08:15 Respiratory Pattern Tachypnea 01/16/19 08:15 Blood Pressure 155/85 H 01/16/19 15:29 Blood Pressure Mean 96 01/07/19 08:32 Blood Pressure Position Sitting 01/07/19 08:21 Pulse Oximetry 94 L 01/16/19 15:29 Respiratory End-tidal CO2 41 01/07/19 08:40 Oxygen Delivery Method Nasal Cannula 01/16/19 15:29 Oxygen Flow Rate 4 01/16/19 15:29 Pain Level 0 01/16/19 15:29 Comment 01/16/19 03:50 Intake & Output 01/15/19 01/16/19 01/16/19 23:59 11:59 23:59 Intake Total 490 / 620 720 / 960 240 / 960 Output Total 650 / 1650 275 / 525 250 / 525 Balance -160 / -1030 445 / 435 -10 / 435 Weight 72.9 kg Intake: IV Oral 490 / 610 700 / 940 240 / 940 Output: Urine 650 / 1650 275 / 525 250 / 525 Other: Urine Color Yellow Yellow Straw Urine Appearance Clear Clear Clear Urine Odor Normal Strong Normal Voiding Methods Urinal Urinal Urinal Laboratory Results WBC 25.53 k/cumm (4.4-10.8) H* 01/16/19 06:38 RBC 4.80 m/cumm (4.50-6.00) 01/16/19 06:38 Hgb 12.9 g/dL (13.5-17.5) L 01/16/19 06:38 Hct 42.3 % (40.0-50.0) 01/16/19 06:38 MCV 88.1 fL (80-95) 01/16/19 06:38 MCH 26.9 pg (27.0-33.0) L 01/16/19 06:38 MCHC 30.5 g/dL (32.0-36.0) L 01/16/19 06:38 RDW 14.7 % (11.8-14.1) H 01/16/19 06:38 Plt Count 325 x1000/uL (130-400) 01/16/19 06:38 MPV 9.6 fL (8.0-11.0) 01/16/19 06:38 Immature Gran % See Differential 01/16/19 06:38 90.0 01/16/19 06:38 1.0 % 01/15/19 07:10 2.0 01/16/19 06:38 5.0 01/16/19 06:38 0.0 01/16/19 06:38 0.0 01/16/19 06:38 3.0 % 01/16/19 06:38 4.0 % 01/15/19 07:10 Absolute Neutrophils 22.98 k/cumm (1.2-6.7) H 01/16/19 06:38 Absolute Lymphocytes 0.51 k/cumm (1.2-3.4) L 01/16/19 06:38 Absolute Monocytes 1.28 k/cumm (0.11-0.7) H 01/16/19 06:38 Absolute Eosinophils 0.00 k/cumm (0.0-0.7) 01/16/19 06:38 Absolute Basophils 0.00 k/cumm (0.0-0.2) 01/16/19 06:38 Manual differential 01/16/19 06:38 RBC Morphology See below 01/16/19 06:38 1+ 01/16/19 06:38 2+ 01/15/19 07:10 1+ 01/14/19 06:50 Sample Site Right radial 01/14/19 15:26 pCO2 69 mmHg (34-47) H* 01/14/19 15:26 pO2 86 mmHg (83-108) 01/14/19 15:26 O2 Saturation 97 % (94-98) 01/14/19 15:26 ABG pH 7.39 (7.35-7.45) 01/14/19 15:26 ABG HCO3 41 mmol/L (22-28) H 01/14/19 15:26 ABG Total CO2 38 mmol/L (22-29) H 01/14/19 15:26 ABG Base Excess mmol/L (-3-3) 01/14/19 15:26 Sodium 142 mmol/L (136-145) 01/16/19 06:38 Potassium 4.2 mmol/L (3.5-5.1) 01/16/19 06:38 Chloride 101 mmol/L (98-107) 01/16/19 06:38 Carbon Dioxide 40.7 mmol/L (21.0-32.0) H 01/16/19 06:38 0.3 mmol/L (3-11) L 01/16/19 06:38 BUN 28 mg/dL (7-18) H 01/16/19 06:38 0.55 mg/dL (0.70-1.30) L 01/16/19 06:38 >= 60.00 (mL/min/1.73m2) 01/16/19 06:38 Glucose 135 mg/dL (70-100) H 01/16/19 06:38 Calcium 8.4 mg/dL (8.5-10.1) L 01/16/19 06:38 Magnesium 2.1 mg/dL (1.8-2.4) 01/16/19 06:38 0.2 mg/dL (0.2-1.0) 01/07/19 08:30 AST < 5 U/L (15-37) L 01/07/19 08:30 ALT 17 U/L (12-78) 01/07/19 08:30 108 U/L (46-116) 01/07/19 08:30 < 0.05 ng/mL (0.00-0.06) 01/07/19 08:30 NT-Pro-B Natriuret Pep 57 pg/mL (-299) 01/07/19 08:30 7.1 g/dL (6.4-8.2) 01/07/19 08:30 3.9 g/dL (3.4-5.0) 01/07/19 08:30 < 0.1 ng/mL 01/16/19 06:38
--- NOTE | 2019-01-16 17:24 | CMPROGNOTE_ITS ---
- If Service Date Differs Date of service: 01/16/19 Time of Service: 17:24 Care Management Progress Note S/O: Dave was sitting up in bed watching TV when CM came to see him. He was using his new Trilogy machine and stated that he liked it a lot. Dave was asked about contact information for his sister since the phone number in his medical record is no longer in service. He became agitated when this was raised and indicated that if we said anything to his sister, that she would tell her . He reiterated that he and his brother in law do not get along and that he does not trust him. Although his speech was not always clear, his feelings were evident through body language, tone and facial expression as well as words. A: Dave is a 63 year old male admitted to [facility] on 01/07/19 with Acute Exacerbation of COPD P: Dave continues to be treated with IV steroids, and oral antibiotics. He will be discharged home when medically ready per provider, per RT he will have a new Trilogy unit to support his respiratory function. Dave will resume current supports through [facility] including his community worker Mariana Cordon, SELF PROPELLED HOT MIX ROLLER OPERATOR, HC, RN, and LTC CFC. CM will continue to provide support regarding discharge planning and disposition. Dave reported he will transport via [facility].
--- NOTE | 2019-01-16 18:02 | NUR.NOTE ---
Nursing Note: Patient found 3 times today to be wearing his NC oxygen at the same time he was wearing his Trilogy with oxygen bled into it. Patient reminded that his Trilogy has oxygen in it. Patient stated that he felt as if he needed both. Patient also wearing his NC oxygen at the same time as he is getting his updrafts that are being delivered with oxygen. Patient still stating that he needs his NC oxygen as well
[2019-01-17] VITALS (13 sets, daily range): BP systolic 136–161; BP diastolic 74–90; PULSE 83–107; RESP 2–28; TEMP 36.7–37.4; O2SAT 96–98
[2019-01-17] MEDS: Albuterol/Ipratropium 3 ML UPD VIAL UPD ×6 (03:14→23:02)
[2019-01-17] MEDS: Benzonatate 200 MG CAP PO ×3 (05:16→21:02)
[2019-01-17 07:39] LABS: Abs Immature Grans 1.08 k/cumm (0.0-0.09); HCT 40.8 % (40.0-50.0); HGB 12.6 g/dL (13.5-17.5); Mean Corp. HGB Concentration 30.9 g/dL (32.0-36.0); Mean Corpuscular Hemoglobin 27.3 pg (27.0-33.0); Mean Corpuscular Volume 88.3 fL (80-95); Mean Platelet Volume 9.4 fL (8.0-11.0); Platelet Count 319 x1000/uL (130-400); RBC 4.62 m/cumm (4.50-6.00); RBC Distribution Width 14.7 % (11.8-14.1)
[2019-01-17 07:52] LABS: Anion Gap 1.9 mmol/L (3-11); BUN 27 mg/dL (7-18); CO2 39.1 mmol/L (21.0-32.0); CREATININE 0.56 mg/dL (0.70-1.30); Calcium 8.3 mg/dL (8.5-10.1); Chloride 100 mmol/L (98-107); Glucose 148 mg/dL (70-100); Magnesium 1.9 mg/dL (1.8-2.4); Sodium 141 mmol/L (136-145)
[2019-01-17 08:36] LABS: Absolute Lymphocyte Count 0.63 k/cumm (1.2-3.4); Absolute Neutrophil Count 28.26 k/cumm (1.2-6.7); Diff Comment Manual Differential
[2019-01-17 08:37] LABS: Hypochromasia 1+
[2019-01-17] MEDS: dilTIAZem CD 120 MG CAPCR PO (08:56)
[2019-01-17] MEDS: guaiFENesin 600 MG TABCR PO ×2 (08:56→19:30)
[2019-01-17] MEDS: Aspirin 325 MG TAB PO (08:56)
[2019-01-17] MEDS: Pantoprazole 40 MG TABCR PO (08:57)
[2019-01-17] MEDS: Normal Saline Flush 10 ML SYR IVP ×3 (08:58→22:02)
[2019-01-17] MEDS: methylPREDNISolone SUCC 40 MG VIAL 60 MG IVP ×3 (08:58→23:02)
[2019-01-17] MEDS: Budesonide 0.5 MG/2 ML UPD VIAL UPD ×2 (09:13→20:35)
--- NOTE | 2019-01-17 10:41 | PT.INTREAT ---
Date of service: 01/17/19 Time of Service: 09:30 PT Notes Inpatient Physical Therapy Treatment Note [facility] Date: 01/17/19 PRECAUTIONS: Standard OBJECTIVE: Supine-sit: SBA Sit-supine: SBA Sit-stand: SBA Stand-sit: SBA GAIT Assistive Device: FWW Weight bearing: Full Assist: CGA Distance: Ambulated from his room to the PT room. VITALS: Oxygen 6L in the low to mid 90's THEREX: Pt completed the Nu Step for 4 and a half min with 1 rest ASSESSMENT: Pt tolerated today's session well. PLAN: Cont as per PT POC. TREATMENT CODE/TIME: 9:30-9:55 (98) [id number]
--- NOTE | 2019-01-17 10:46 | PT.INTREAT ---
Date of service: 01/17/19 Time of Service: 09:55 PT Notes Inpatient Physical Therapy Treatment Note [facility] Date: 01/17/19 PRECAUTIONS:Standard SUBJECTIVE: Pt reports that he is doing well today. He states that he would really like to go home today. OBJECTIVE: Supine-sit: SBA Sit-stand: SBA Stand-sit: SBA GAIT Assistive Device: FWW Weight bearing: Full Assist: SBA/CGA Distance: 150ft THEREX: Pt completed UE and LE ther ex as per flow sheet while in the seated position. STAIRS: up and down 3 steps in PT room x1 with 1 rail. ASSESSMENT: Pt tolerate today's session well he is motivated to go home. PLAN: Cont to progress as per hoa as per PT POC. TREATMENT CODE/TIME: 9:55-10:10 (15) TA
--- NOTE | 2019-01-17 13:20 | PDOC.CMPRO ---
Care Management Progress Note S/O: CM clarified plan with team and Dave; remains Dave will return home. CM spoke to Dave's sister who asked this production underwriter to tell him that she missed and loved him. She was aware he did not want to see her while at [facility]. He has not wished to speak with her during this admission due to his feelings toward her . Dave enjoys living in his mother's home where his tractor and memories are, though he does not appreciate his sister's . CM updated contact number for Dave: [phone] and requested ACCESS to update as well. His community based CMs, Martha and Lisa are working on AF home placement where he will be permitted to have his tractor. Dave reports his plan has not changed, he anticipates transporting with [facility]. He continues to adjust to the trilogy; which is a bit of struggle though Dave shares he is committed to using it. CM continues to follow; anticipate discharge home as soon as tomorrow. A: Dave is a 63 year old male admitted to [facility] on 01/07/19 with Acute Exacerbation of COPD P: Dave continues to be treated with IV steroids, and oral antibiotics. He will be discharged home when medically ready per provider, per RT he will have a new Trilogy unit to support his respiratory function. Dave will resume current supports through [facility] including his community service officer coordinator Mariana Cordon, COMMUNICATIONS PROJECT LEAD, HC, RN, and [facility]. CM will continue to provide support regarding discharge planning and disposition. Dave reported he will transport via [facility].
--- NOTE | 2019-01-17 15:17 | W.PM.PROGNOT ---
Date of Service Date of service: 01/17/19 Time of Service: 15:17 Assessment and Plan (1) Acute exacerbation of chronic obstructive pulmonary disease (COPD): Current visit: Yes Status: Acute with chronic Hypercapneic and Hypoxic Respiratory Failure. Trilogy does seem to be quite beneficial. Sputum cx from yesterday with GNR. Start zosyn while this is speciating. No change to steroid dose today. Hospital will have daliresp tomorrow. (2) Hypertension: Current visit: Yes Status: Chronic Continue Diltiazem. (3) GERD (gastroesophageal reflux disease): Current visit: Yes Status: Chronic On PPI therapy. (4) DVT prophylaxis: Current visit: Yes Status: Acute On SCDs, TEDs given history of Cerebellar Hemorrhage. (5) Advance directive on file: Current visit: Yes Status: Acute Full Code. Subjective Interval history since last seen: States he feels better today and that his breathing is a little better - he was able to walk today - but that his cough has never been productive of this much sputum at home and that it continues to be yellow green - color like i've never seen before. Denies dizziness, chest pain, nausea, vomiting. He has been using the trilogy machine and thinks it is helping. Exam Narrative Exam Narrative: General: very pleasant middle-aged male with a speech deficit, A&Ox3,talking to me at length while wearing NC, appears to be able to talk in long sentences. HEENT: EOMI, MMM Heart: RRR, no m/r/g Lungs: Diminished breath sounds B, coughing up copious amounts of green-yellow sputum GI: abdomen is soft, nontender, nondistended Extremities: no e/c/c BLE's; R knee cap malshaped Objective Objective Clinical Data: Abnormal lab results 01/17/19 01/17/19 Range/Units 06:58 06:58 WBC 31.40 H* (4.4-10.8) k/cumm Hgb 12.6 L (13.5-17.5) g/dL MCHC 30.9 L (32.0-36.0) g/dL RDW 14.7 H (11.8-14.1) % Absolute Neutrophils 28.26 H (1.2-6.7) k/cumm Absolute Lymphocytes 0.63 L (1.2-3.4) k/cumm Absolute Monocytes 2.20 H (0.11-0.7) k/cumm Carbon Dioxide 39.1 H (21.0-32.0) mmol/L Anion Gap 1.9 L (3-11) mmol/L BUN 27 H (7-18) mg/dL Creatinine 0.56 L (0.70-1.30) mg/dL Glucose 148 H (70-100) mg/dL Calcium 8.3 L (8.5-10.1) mg/dL Vital Signs Temperature 36.8 C 01/17/19 11:10 Temperature Source Tympanic 01/17/19 11:10 Pulse 102 H 01/17/19 12:29 Pulse Rhythm Regular 01/17/19 09:16 Pulse 97 H 01/07/19 08:40 Respiratory Rate 27 H 01/17/19 12:29 Respiratory Effort Incrsd Work of Breathing 01/17/19 09:16 Respiratory Depth Shallow 01/17/19 09:16 Respiratory Pattern Tachypnea 01/17/19 09:16 Blood Pressure 136/74 01/17/19 11:10 Blood Pressure Mean 96 01/07/19 08:32 Blood Pressure Position Sitting 01/07/19 08:21 Pulse Oximetry 97 01/17/19 12:29 Respiratory End-tidal CO2 41 01/07/19 08:40 Oxygen Delivery Method Bi-pap 01/17/19 12:29 Oxygen Flow Rate 4 01/17/19 12:29 Pain Level 2 01/17/19 11:10 Comment 01/16/19 03:50 Intake & Output 01/16/19 01/17/19 01/17/19 23:59 11:59 23:59 Intake Total 740 / 1460 360 / 600 240 / 600 Output Total 800 / 1075 800 / 800 Balance -60 / 385 -440 / -200 240 / -200 Weight 73.8 kg Intake: IV 20 / 40 20 / 20 Oral 720 / 1420 340 / 580 240 / 580 Output: Urine 800 / 1075 800 / 800 Other: Urine Color Light Elly Yellow Urine Appearance Clear Clear Urine Odor Normal Normal Comment per patient verbalization Stool Size Large Stool Characteristics Soft Formed Voiding Methods Urinal Urinal Laboratory Results WBC 31.40 k/cumm (4.4-10.8) H* 01/17/19 06:58 RBC 4.62 m/cumm (4.50-6.00) 01/17/19 06:58 Hgb 12.6 g/dL (13.5-17.5) L 01/17/19 06:58 Hct 40.8 % (40.0-50.0) 01/17/19 06:58 MCV 88.3 fL (80-95) 01/17/19 06:58 MCH 27.3 pg (27.0-33.0) 01/17/19 06:58 MCHC 30.9 g/dL (32.0-36.0) L 01/17/19 06:58 RDW 14.7 % (11.8-14.1) H 01/17/19 06:58 Plt Count 319 x1000/uL (130-400) 01/17/19 06:58 MPV 9.4 fL (8.0-11.0) 01/17/19 06:58 Immature Gran % See Differential 01/17/19 06:58 90.0 01/17/19 06:58 1.0 % 01/15/19 07:10 2.0 01/17/19 06:58 7.0 01/17/19 06:58 0.0 01/17/19 06:58 0.0 01/17/19 06:58 3.0 % 01/16/19 06:38 1.0 % 01/17/19 06:58 Absolute Neutrophils 28.26 k/cumm (1.2-6.7) H 01/17/19 06:58 Absolute Lymphocytes 0.63 k/cumm (1.2-3.4) L 01/17/19 06:58 Absolute Monocytes 2.20 k/cumm (0.11-0.7) H 01/17/19 06:58 Absolute Eosinophils 0.00 k/cumm (0.0-0.7) 01/17/19 06:58 Absolute Basophils 0.00 k/cumm (0.0-0.2) 01/17/19 06:58 Manual differential 01/17/19 06:58 RBC Morphology See below 01/17/19 06:58 1+ 01/17/19 06:58 2+ 01/15/19 07:10 1+ 01/14/19 06:50 Sample Site Right radial 01/14/19 15:26 pCO2 69 mmHg (34-47) H* 01/14/19 15:26 pO2 86 mmHg (83-108) 01/14/19 15:26 O2 Saturation 97 % (94-98) 01/14/19 15:26 ABG pH 7.39 (7.35-7.45) 01/14/19 15:26 ABG HCO3 41 mmol/L (22-28) H 01/14/19 15:26 ABG Total CO2 38 mmol/L (22-29) H 01/14/19 15:26 ABG Base Excess mmol/L (-3-3) 01/14/19 15:26 Sodium 141 mmol/L (136-145) 01/17/19 06:58 Potassium 4.0 mmol/L (3.5-5.1) 01/17/19 06:58 Chloride 100 mmol/L (98-107) 01/17/19 06:58 Carbon Dioxide 39.1 mmol/L (21.0-32.0) H 01/17/19 06:58 1.9 mmol/L (3-11) L 01/17/19 06:58 BUN 27 mg/dL (7-18) H 01/17/19 06:58 0.56 mg/dL (0.70-1.30) L 01/17/19 06:58 >= 60.00 (mL/min/1.73m2) 01/17/19 06:58 Glucose 148 mg/dL (70-100) H 01/17/19 06:58 Calcium 8.3 mg/dL (8.5-10.1) L 01/17/19 06:58 Magnesium 1.9 mg/dL (1.8-2.4) 01/17/19 06:58 0.2 mg/dL (0.2-1.0) 01/07/19 08:30 AST < 5 U/L (15-37) L 01/07/19 08:30 ALT 17 U/L (12-78) 01/07/19 08:30 108 U/L (46-116) 01/07/19 08:30 < 0.05 ng/mL (0.00-0.06) 01/07/19 08:30 NT-Pro-B Natriuret Pep 57 pg/mL (-299) 01/07/19 08:30 7.1 g/dL (6.4-8.2) 01/07/19 08:30 3.9 g/dL (3.4-5.0) 01/07/19 08:30 < 0.1 ng/mL 01/16/19 06:38
[2019-01-17] MEDS: Normal Saline 500 ML IV (16:17)
[2019-01-17] MEDS: PIPERACILLIN/TAZO 3.375 GM in Normal Saline 50 ML IVPB ×2 (16:17→22:02)
[2019-01-18] VITALS (16 sets, daily range): BP systolic 138–186; BP diastolic 74–96; PULSE 88–113; RESP 2–20; TEMP 36.4–37.1; O2SAT 92–98
[2019-01-18] MEDS: PIPERACILLIN/TAZO 3.375 GM in Normal Saline 50 ML IVPB ×4 (03:55→21:46)
[2019-01-18] MEDS: Benzonatate 200 MG CAP PO ×3 (05:04→21:46)
[2019-01-18 07:13] LABS: Abs Immature Grans 1.15 k/cumm (0.0-0.09); HGB 13.2 g/dL (13.5-17.5); Mean Corp. HGB Concentration 30.7 g/dL (32.0-36.0); Mean Corpuscular Volume 87.9 fL (80-95); Mean Platelet Volume 9.5 fL (8.0-11.0); Platelet Count 321 x1000/uL (130-400); RBC 4.89 m/cumm (4.50-6.00); RBC Distribution Width 14.8 % (11.8-14.1)
[2019-01-18 07:46] LABS: Anion Gap 3.6 mmol/L (3-11); BUN 28 mg/dL (7-18); CO2 37.4 mmol/L (21.0-32.0); CREATININE 0.56 mg/dL (0.70-1.30); Calcium 8.2 mg/dL (8.5-10.1); Chloride 102 mmol/L (98-107); Glucose 189 mg/dL (70-100); Magnesium 1.9 mg/dL (1.8-2.4); Potassium 4.3 mmol/L (3.5-5.1); Sodium 143 mmol/L (136-145)
[2019-01-18] MEDS: Pantoprazole 40 MG TABCR PO (07:48)
[2019-01-18] MEDS: dilTIAZem CD 120 MG CAPCR PO (07:48)
[2019-01-18] MEDS: guaiFENesin 600 MG TABCR PO ×2 (07:48→19:40)
[2019-01-18] MEDS: Aspirin 325 MG TAB PO (07:48)
[2019-01-18 08:12] LABS: Absolute Lymphocyte Count 0.78 k/cumm (1.2-3.4); Absolute Monocyte Count 0.78 k/cumm (0.11-0.7); Absolute Neutrophil Count 23.43 k/cumm (1.2-6.7); White Blood Cell Count 26.03 k/cumm (4.4-10.8)
[2019-01-18 08:13] LABS: Anisocytosis 1+; Diff Comment Manual Differential
[2019-01-18 08:14] LABS: Hypochromasia 1+
[2019-01-18] MEDS: methylPREDNISolone SUCC 40 MG VIAL 60 MG IVP (08:45)
[2019-01-18] MEDS: Normal Saline Flush 10 ML SYR IVP ×4 (08:46→23:38)
[2019-01-18] MEDS: Albuterol/Ipratropium 3 ML UPD VIAL UPD ×5 (09:08→23:37)
[2019-01-18] MEDS: Budesonide 0.5 MG/2 ML UPD VIAL UPD ×2 (10:16→19:40)
[2019-01-18] MEDS: Furosemide 20 MG/2 ML VIAL IVP (11:00)
--- NOTE | 2019-01-18 11:27 | DI.RAD_ITS ---
SYMPTOMS/DIAGNOSIS: PSEUDOMONAS IN SPUTUM, ? PNEUMONIA CHEST: Frontal and lateral views. Comparison is 01/14/19. The heart size and pulmonary vasculature are within normal limits. There is a question of increased lung markings in the left lung base medially. This was not present on the prior examination. No gross effusions or pneumothoraces are identified. The lungs are hyperinflated consistent with underlying COPD. Degenerative changes are seen in the spine. IMPRESSION: 1. Question of a left basilar infiltrate suspicious for pneumonia. 2. COPD.
--- NOTE | 2019-01-18 12:01 | W.PM.PROGNOT ---
Date of Service Date of service: 01/18/19 Time of Service: 12:02 Assessment and Plan (1) Acute exacerbation of chronic obstructive pulmonary disease (COPD): Current visit: Yes Status: Acute Due to acute bronchitis. Sputum c&S 01/16 is growing pseudomonas, sensitive to zosyn (now day 2) as well as fluoroquinolones. Will add levofloxacin for synergy with hopefully faster resolution of symptoms. I do not think that this is just colonization - pseudomonas is new in for his cultures and there was a sputum color/character change. Has chronic Hypercapneic and Hypoxic Respiratory Failure - trilogy does seem to be quite beneficial. Sputum cx from yesterday with GNRArpan Pfeiffer to start today. Ok to decrease dose of steroids. (2) Hypertension: Current visit: Yes Status: Chronic Continue Diltiazem. (3) GERD (gastroesophageal reflux disease): Current visit: Yes Status: Chronic On PPI therapy. (4) DVT prophylaxis: Current visit: Yes Status: Acute On SCDs, TEDs given history of Cerebellar Hemorrhage. (5) Advance directive on file: Current visit: Yes Status: Acute Full Code. Subjective Interval history since last seen: States he feels significantly better between yesterday to today. Specifically, he is talking about his breathing. He denies any new dizziness (reports his chronic), chest pain, nausea, vomiting. Continues to bring up a lot of yellow-green sputum, but this is better. Continues to faithfully use the trilogy and says it's helping. He is wearing oxygen right now - for lunch. Exam Narrative Exam Narrative: General: very pleasant middle-aged male, A&Ox3, sitting at the edge of the bed, speaking in full sentences, looks less short of breath to me today. HEENT: EOMI, MMM Heart: RRR, no m/r/g Lungs: Breath sounds are diminished, but there is definite improvement today - I can hear bilateral air entry, no wheezing; does have a rattly cough, slight crackles GI: abdomen is soft, nontender, nondistended Extremities: trace edema at ankles, no c/c BLE's; R knee cap malshaped Objective Objective Clinical Data: Abnormal lab results 01/18/19 01/18/19 Range/Units 06:32 06:32 WBC 26.03 H* (4.4-10.8) k/cumm Hgb 13.2 L (13.5-17.5) g/dL MCHC 30.7 L (32.0-36.0) g/dL RDW 14.8 H (11.8-14.1) % Absolute Neutrophils 23.43 H (1.2-6.7) k/cumm Absolute Lymphocytes 0.78 L (1.2-3.4) k/cumm Absolute Monocytes 0.78 H (0.11-0.7) k/cumm Carbon Dioxide 37.4 H (21.0-32.0) mmol/L BUN 28 H (7-18) mg/dL Creatinine 0.56 L (0.70-1.30) mg/dL Glucose 189 H (70-100) mg/dL Calcium 8.2 L (8.5-10.1) mg/dL Vital Signs Temperature 36.5 C 01/18/19 07:15 Temperature Source Tympanic 01/18/19 07:15 Pulse 107 H 01/18/19 07:15 Pulse Rhythm Regular 01/18/19 07:35 Pulse 97 H 01/07/19 08:40 Respiratory Rate 20 01/18/19 09:38 Respiratory Effort 01/18/19 07:35 Respiratory Depth Normal 01/18/19 07:35 Respiratory Pattern Normal 01/18/19 07:35 Blood Pressure 186/89 H 01/18/19 07:15 Blood Pressure Mean 96 01/07/19 08:32 Blood Pressure Position Sitting 01/07/19 08:21 Pulse Oximetry 94 L 01/18/19 09:38 Respiratory End-tidal CO2 41 01/07/19 08:40 Oxygen Delivery Method OxyMask 01/18/19 09:08 Oxygen Flow Rate 5 01/18/19 09:08 Fraction of Inspired Oxygen (FIO2) 4 01/17/19 19:11 Pain Level 0 01/18/19 07:48 Comment 01/18/19 03:55 Intake & Output 01/17/19 01/18/19 01/18/19 23:59 11:59 23:59 Intake Total 855.006 / 1215.006 620 / 620 Output Total 800 / 1900 400 / 400 Balance 55.006 / -684.994 220 / 220 Weight 75.4 kg Intake: IV 175.006 / 195.006 120 / 120 Oral 680 / 1020 500 / 500 Output: Urine 800 / 1900 400 / 400 Other: Urine Color Yellow Yellow Urine Appearance Clear Clear Voiding Methods Urinal Urinal Laboratory Results WBC 26.03 k/cumm (4.4-10.8) H* 01/18/19 06:32 RBC 4.89 m/cumm (4.50-6.00) 01/18/19 06:32 Hgb 13.2 g/dL (13.5-17.5) L 01/18/19 06:32 Hct 43.0 % (40.0-50.0) 01/18/19 06:32 MCV 87.9 fL (80-95) 01/18/19 06:32 MCH 27.0 pg (27.0-33.0) 01/18/19 06:32 MCHC 30.7 g/dL (32.0-36.0) L 01/18/19 06:32 RDW 14.8 % (11.8-14.1) H 01/18/19 06:32 Plt Count 321 x1000/uL (130-400) 01/18/19 06:32 MPV 9.5 fL (8.0-11.0) 01/18/19 06:32 Immature Gran % See Differential 01/18/19 06:32 84.0 01/18/19 06:32 6.0 % 01/18/19 06:32 3.0 01/18/19 06:32 3.0 01/18/19 06:32 0.0 01/18/19 06:32 0.0 01/18/19 06:32 1.0 % 01/18/19 06:32 3.0 % 01/18/19 06:32 Absolute Neutrophils 23.43 k/cumm (1.2-6.7) H 01/18/19 06:32 Absolute Lymphocytes 0.78 k/cumm (1.2-3.4) L 01/18/19 06:32 Absolute Monocytes 0.78 k/cumm (0.11-0.7) H 01/18/19 06:32 Absolute Eosinophils 0.00 k/cumm (0.0-0.7) 01/18/19 06:32 Absolute Basophils 0.00 k/cumm (0.0-0.2) 01/18/19 06:32 Manual differential 01/18/19 06:32 RBC Morphology See below 01/18/19 06:32 1+ 01/18/19 06:32 2+ 01/15/19 07:10 1+ 01/18/19 06:32 1+ 01/14/19 06:50 Sample Site Right radial 01/14/19 15:26 pCO2 69 mmHg (34-47) H* 01/14/19 15:26 pO2 86 mmHg (83-108) 01/14/19 15:26 O2 Saturation 97 % (94-98) 01/14/19 15:26 ABG pH 7.39 (7.35-7.45) 01/14/19 15:26 ABG HCO3 41 mmol/L (22-28) H 01/14/19 15:26 ABG Total CO2 38 mmol/L (22-29) H 01/14/19 15:26 ABG Base Excess mmol/L (-3-3) 01/14/19 15:26 Sodium 143 mmol/L (136-145) 01/18/19 06:32 Potassium 4.3 mmol/L (3.5-5.1) 01/18/19 06:32 Chloride 102 mmol/L (98-107) 01/18/19 06:32 Carbon Dioxide 37.4 mmol/L (21.0-32.0) H 01/18/19 06:32 3.6 mmol/L (3-11) 01/18/19 06:32 BUN 28 mg/dL (7-18) H 01/18/19 06:32 0.56 mg/dL (0.70-1.30) L 01/18/19 06:32 >= 60.00 (mL/min/1.73m2) 01/18/19 06:32 Glucose 189 mg/dL (70-100) H 01/18/19 06:32 Calcium 8.2 mg/dL (8.5-10.1) L 01/18/19 06:32 Magnesium 1.9 mg/dL (1.8-2.4) 01/18/19 06:32 0.2 mg/dL (0.2-1.0) 01/07/19 08:30 AST < 5 U/L (15-37) L 01/07/19 08:30 ALT 17 U/L (12-78) 01/07/19 08:30 108 U/L (46-116) 01/07/19 08:30 < 0.05 ng/mL (0.00-0.06) 01/07/19 08:30 NT-Pro-B Natriuret Pep 57 pg/mL (-299) 01/07/19 08:30 7.1 g/dL (6.4-8.2) 01/07/19 08:30 3.9 g/dL (3.4-5.0) 01/07/19 08:30 < 0.1 ng/mL 01/16/19 06:38 CXR: official read pending; does have vascular fullness and slight cephalization today, hyperinflated lungs. I think he has mild pulmonary edema. I also see air bronchograms c/w acute bronchitis/mucuous plugging of small airways.
[2019-01-18] MEDS: Roflumilast 500 MCG TAB PO (12:08)
[2019-01-18] MEDS: levoFLOXacin 500 MG TAB PO (13:28)
[2019-01-18] MEDS: Lactobacillus Acidophilus CAP 1 CAP PO ×2 (13:28→19:40)
--- NOTE | 2019-01-18 15:19 | CMPROGNOTE_ITS ---
Care Management Progress Note S/O: Dave remains pleasant in interaction, he prefers to have his door closed but engages easily. Due to positive sputum cultures, Dave is being treated with a five day course of IV ABX (Zosyn) per MD. No change to overall plan. CM continues to follow. A: Dave is a 63 year old male admitted to [facility] on 01/07/19 with Acute Exacerbation of COPD P: Dave continues on IV steroids, and now IV antibiotics. He will be discharged home when medically ready per provider, he will have a new Trilogy unit to support his respiratory function. Dave will resume current supports through [facility] including his manager of community relations Mariana Cordon, GLOBAL SOURCING MANAGER, HC, RN, and [facility]. CM will continue to provide support regarding discharge planning and disposition. Dave reported he will transport via [facility].
[2019-01-18] MEDS: methylPREDNISolone SUCC 40 MG VIAL IVP ×2 (16:43→23:37)
--- NOTE | 2019-01-18 18:00 | PT.INPN ---
Date of service: 01/18/19 Time of Service: 15:28 PT Notes Inpatient Physical Therapy Progress Note Date: 01/18/2019 Dates of service: 01/11/2019 through 01/18/2019 Referring Doctor: Thien Huitron MD PT Orders: PT CONSULT: COPD exacerbation. Deconditioning Precautions: Fall. Standard. Subjective: Patient is very much satisfied with how he is been responding to a continued trial of the trilogy machine in terms of his activity performance and endurance. He is starting to feel considerably better with his breathing and reports improved activity tolerance with today's ambulation activity. Objective: General Observation: Patient is lying in bed. Mental Status: Alert and oriented x 4 Pain: 0/10 Vital Signs: Oxygen saturation ranged from 90%-96 % to on 6 L/minute throughout PT session. Bed Mobility/Transfers: Rolling I Supine to sit I Sit to supine I Sit to stand I Stand to sit I Bed to chair I Chair to bed I Gait: Patient tolerated 60 feet x 2 of level surface ambulation using front wheeled walker with supervision and with oxygen level ranging from 93 room 96% on 4 L/min without complaints of fatigue nor severe breathlessness with [place] dyspnea scale of 3/10 moderate breathlessness requiring one standing rest. Balance: Static Sitting: Normal Dynamic Sitting: Normal Static Standing: Normal Dynamic Standing: Fair Assessment: Patients is a 63-year-old male patient with past medical history of cerebellar hemmorrhage, CAD, TIA, and hypertension who was diagnosed with COPD exacerbation and acute exacerbation of chroninc respiratory failure with hypoxia. Patient continues to present with clinical signs and symptoms consistent with current/admitting diagnoses that have resulted to mobility limitations, gait instability, generalized weakness, and impairment of motor control as demonstrated by the following impairment level findings: 1. Improving activity tolerance 2. Decreasing Dyspnea on exertion Impairments are contributing to the following functional limitations: 1. Continued decreased ability to ambulate without dyspnea 2. Increase completion time for mobility ADL performance 3. Increased fall risk 4. Inability to negotiate steps without dyspnea Patient is assessed as a 16476 moderate complexity based on the following: History: Patients is a 63-year-old male patient with past medical history of cerebellar hemorrhage, CAD, TIA, and hypertension who was diagnosed with COPD exacerbation and acute exacerbation of chroninc respiratory failure with hypoxia. Examination: Underlying impairments and functional limitations as noted above Presentation:Evolving Decision Makin moderate complexity Goals: Goals X1 week 1. Independent gait on level and non-level surface ambulation without assistive device for at least 300 feet without report of dyspnea on 3 L/min CONTINUE 2. Independent stair negotiation while holding onto bilateral rails for at least 5 steps without report of pain nor dyspnea CONTINUE 3. Independent with home exercise program CONTINUE 4. Normal static and dynamic standing balance/tolerance CONTINUE Plan of Care/Treatment Plan: 1x/day, 7 days/week x 1 week. Plan of care has been reviewed with the GROUND WIRER providing the service under Physical Therapy direction. Initiate Physical Therapy intervention for strengthening, bed mobility, transfers, gait, stairs, balance training, use of assistive device. DISCHARGE RECOMMENDATIONS: Patient will benefit from home health PT services in order to progress mobility level using least restrictive assistive ambulatory device/using no device, assess home safety, identify additional equipment needs, and establish a functional maintenance program that will increase ability of patient to remain at home. TREATMENT CODE/TIME: 27420 x 31 minutes beginning at 15:28 PM. Thank you very much for this referral. Gabriela Aranda PT, DPT, CLT [facility]
[2019-01-18] MEDS: Normal Saline 500 ML 50 ML IV (21:47)
[2019-01-19] VITALS (17 sets, daily range): BP systolic 132–164; BP diastolic 65–96; PULSE 80–105; RESP 2–28; TEMP 36–36.8; O2SAT 90–97
[2019-01-19] MEDS: Albuterol/Ipratropium 3 ML UPD VIAL UPD ×5 (03:58→23:52)
[2019-01-19] MEDS: PIPERACILLIN/TAZO 3.375 GM in Normal Saline 50 ML IVPB ×4 (03:58→21:16)
[2019-01-19] MEDS: Normal Saline Flush 10 ML SYR IVP ×5 (03:59→21:42)
[2019-01-19] MEDS: Benzonatate 200 MG CAP PO ×3 (05:43→21:16)
[2019-01-19 07:48] LABS: Abs Immature Grans 0.96 k/cumm (0.0-0.09); HCT 40.4 % (40.0-50.0); HGB 12.6 g/dL (13.5-17.5); Mean Corp. HGB Concentration 31.2 g/dL (32.0-36.0); Mean Corpuscular Hemoglobin 26.9 pg (27.0-33.0); Mean Corpuscular Volume 86.1 fL (80-95); Mean Platelet Volume 9.3 fL (8.0-11.0); Platelet Count 311 x1000/uL (130-400); RBC 4.69 m/cumm (4.50-6.00); RBC Distribution Width 14.7 % (11.8-14.1)
[2019-01-19 08:00] LABS: BUN 23 mg/dL (7-18); CREATININE 0.51 mg/dL (0.70-1.30); Calcium 8.4 mg/dL (8.5-10.1); Chloride 99 mmol/L (98-107); Glucose 136 mg/dL (70-100); Magnesium 1.9 mg/dL (1.8-2.4); Potassium 4.3 mmol/L (3.5-5.1); Sodium 142 mmol/L (136-145)
[2019-01-19] MEDS: levoFLOXacin 500 MG TAB PO (08:15)
[2019-01-19] MEDS: dilTIAZem CD 120 MG CAPCR PO (08:15)
[2019-01-19] MEDS: Aspirin 325 MG TAB PO (08:15)
[2019-01-19] MEDS: Roflumilast 500 MCG TAB PO (08:16)
[2019-01-19] MEDS: Pantoprazole 40 MG TABCR PO (08:16)
[2019-01-19] MEDS: methylPREDNISolone SUCC 40 MG VIAL IVP ×2 (08:17→16:29)
[2019-01-19] MEDS: guaiFENesin 600 MG TABCR PO ×2 (08:17→20:07)
[2019-01-19] MEDS: Lactobacillus Acidophilus CAP 1 CAP PO ×3 (08:18→20:07)
[2019-01-19 08:52] LABS: White Blood Cell Count 26.69 k/cumm (4.4-10.8)
[2019-01-19 08:53] LABS: Absolute Lymphocyte Count 1.07 k/cumm (1.2-3.4); Absolute Monocyte Count 1.33 k/cumm (0.11-0.7); Absolute Neutrophil Count 22.69 k/cumm (1.2-6.7); Diff Comment Manual Differential; Hypochromasia 1+; Poikilocytes 1+
--- NOTE | 2019-01-19 09:31 | PDOC.CMPRO ---
Care Management Progress Note S/O-Met with Dave today. He was very pleasant in interaction, although difficult to understand. He remains acute today, with possibility of d/c home tomorrow. Eladio from [facility] came in and explained that he will take the Trilogy home with him. [facility] will also make sure he has a portable tank of O2 from [employer] for the trip home. [facility] will be contacted to transport. A-63 yo man admitted with acute exacerbation COPD. P-d/c home as per MD with the Trilogy unit to support his respiratory function, resumption of HH services and CFC. [facility] to transport.
[2019-01-19] MEDS: Budesonide 0.5 MG/2 ML UPD VIAL UPD ×2 (09:38→20:07)
--- NOTE | 2019-01-19 18:09 | W.PM.PROGNOT ---
Date of Service Date of service: 01/19/19 Time of Service: 18:09 Assessment and Plan (1) Acute exacerbation of chronic obstructive pulmonary disease (COPD): Current visit: Yes Status: Acute Due to acute bronchitis. Sputum c&S 01/16, 01/17 is growing pseudomonas, sensitive to zosyn (now day 3) as well as fluoroquinolones (levofloxacin day 2) Improving significantly. Has chronic Hypercapneic and Hypoxic Respiratory Failure - trilogy does seem to be quite beneficial. Continue dalirespn, nebs, symbicort, pulmicort. Change steroids to PO in preparation for discharge home tomorrow. (2) Hypertension: Current visit: Yes Status: Chronic Continue Diltiazem. (3) GERD (gastroesophageal reflux disease): Current visit: Yes Status: Chronic On PPI therapy. (4) DVT prophylaxis: Current visit: Yes Status: Acute On SCDs, TEDs given history of Cerebellar Hemorrhage. (5) Advance directive on file: Current visit: Yes Status: Acute Full Code. Subjective Interval history since last seen: States his breathing is now at his baseline and that he is ready to go home tomorrow. Continues to report green sputum production, but when I watched him expectorate, it was actually clear. Denies dizziness, chest pain, nausea, vomiting. Less wheezing today. Exam Narrative Exam Narrative: General: very pleasant middle-aged male, A&Ox3, sitting up in bed, getting a nebulized treatment, looks better HEENT: EOMI, MMM Heart: RRR, no m/r/g Lungs: diminished breath sounds - no wheezing GI: abdomen is soft, nontender, nondistended Extremities: trace edema at ankles, no c/c BLE's; R knee cap malshaped Objective Objective Clinical Data: Abnormal lab results 01/19/19 01/19/19 Range/Units 07:00 07:00 WBC 26.69 H* (4.4-10.8) k/cumm Hgb 12.6 L (13.5-17.5) g/dL MCH 26.9 L (27.0-33.0) pg MCHC 31.2 L (32.0-36.0) g/dL RDW 14.7 H (11.8-14.1) % Absolute Neutrophils 22.69 H (1.2-6.7) k/cumm Absolute Lymphocytes 1.07 L (1.2-3.4) k/cumm Absolute Monocytes 1.33 H (0.11-0.7) k/cumm Carbon Dioxide 39.0 H (21.0-32.0) mmol/L BUN 23 H (7-18) mg/dL Creatinine 0.51 L (0.70-1.30) mg/dL Glucose 136 H (70-100) mg/dL Calcium 8.4 L (8.5-10.1) mg/dL Vital Signs Temperature 36.5 C 01/19/19 11:05 Temperature Source Tympanic 01/19/19 11:05 Pulse 95 H 01/19/19 17:49 Pulse Rhythm Regular 01/19/19 08:30 Pulse 97 H 01/07/19 08:40 Respiratory Rate 28 H 01/19/19 17:49 Respiratory Effort 01/19/19 08:30 Respiratory Depth Normal 01/19/19 08:30 Respiratory Pattern Normal 01/19/19 08:30 Blood Pressure 149/65 H 01/19/19 11:05 Blood Pressure Mean 96 01/07/19 08:32 Blood Pressure Position Sitting 01/07/19 08:21 Pulse Oximetry 93 L 01/19/19 17:49 Respiratory End-tidal CO2 41 01/07/19 08:40 Oxygen Delivery Method Nasal Cannula 01/19/19 17:49 Oxygen Flow Rate 5 01/19/19 17:49 Fraction of Inspired Oxygen (FIO2) 4 01/17/19 19:11 Pain Level 0 01/19/19 07:46 Comment 01/18/19 03:55 Intake & Output 01/18/19 01/19/19 01/19/19 23:59 11:59 23:59 Intake Total 683.333 / 1543.333 600 / 1090 490 / 1090 Output Total 1649 1000 / 1000 Balance -966.667 / -506.667 -400 / 90 490 / 90 Weight 74.2 kg Intake: IV 193.333 / 313.333 60 / 160 100 / 160 Oral 490 / 1230 540 / 930 390 / 930 Output: Urine 1649 1000 / 1000 Other: Urine Color Yellow Yellow Urine Appearance Clear Clear Urine Odor None None Stool Size Moderate Voiding Methods Urinal Urinal Laboratory Results WBC 26.69 k/cumm (4.4-10.8) H* 01/19/19 07:00 RBC 4.69 m/cumm (4.50-6.00) 01/19/19 07:00 Hgb 12.6 g/dL (13.5-17.5) L 01/19/19 07:00 Hct 40.4 % (40.0-50.0) 01/19/19 07:00 MCV 86.1 fL (80-95) 01/19/19 07:00 MCH 26.9 pg (27.0-33.0) L 01/19/19 07:00 MCHC 31.2 g/dL (32.0-36.0) L 01/19/19 07:00 RDW 14.7 % (11.8-14.1) H 01/19/19 07:00 Plt Count 311 x1000/uL (130-400) 01/19/19 07:00 MPV 9.3 fL (8.0-11.0) 01/19/19 07:00 Immature Gran % See Differential 01/19/19 07:00 85.0 01/19/19 07:00 6.0 % 01/18/19 06:32 4.0 01/19/19 07:00 5.0 01/19/19 07:00 0.0 01/19/19 07:00 0.0 01/19/19 07:00 1.0 % 01/19/19 07:00 4.0 % 01/19/19 07:00 Absolute Neutrophils 22.69 k/cumm (1.2-6.7) H 01/19/19 07:00 Absolute Lymphocytes 1.07 k/cumm (1.2-3.4) L 01/19/19 07:00 Absolute Monocytes 1.33 k/cumm (0.11-0.7) H 01/19/19 07:00 Absolute Eosinophils 0.00 k/cumm (0.0-0.7) 01/19/19 07:00 Absolute Basophils 0.00 k/cumm (0.0-0.2) 01/19/19 07:00 Manual differential 01/19/19 07:00 RBC Morphology See below 01/19/19 07:00 1+ 01/19/19 07:00 1+ 01/19/19 07:00 1+ 01/18/19 06:32 1+ 01/14/19 06:50 Sample Site Right radial 01/14/19 15:26 pCO2 69 mmHg (34-47) H* 01/14/19 15:26 pO2 86 mmHg (83-108) 01/14/19 15:26 O2 Saturation 97 % (94-98) 01/14/19 15:26 ABG pH 7.39 (7.35-7.45) 01/14/19 15:26 ABG HCO3 41 mmol/L (22-28) H 01/14/19 15:26 ABG Total CO2 38 mmol/L (22-29) H 01/14/19 15:26 ABG Base Excess mmol/L (-3-3) 01/14/19 15:26 Sodium 142 mmol/L (136-145) 01/19/19 07:00 Potassium 4.3 mmol/L (3.5-5.1) 01/19/19 07:00 Chloride 99 mmol/L (98-107) 01/19/19 07:00 Carbon Dioxide 39.0 mmol/L (21.0-32.0) H 01/19/19 07:00 4.0 mmol/L (3-11) 01/19/19 07:00 BUN 23 mg/dL (7-18) H 01/19/19 07:00 0.51 mg/dL (0.70-1.30) L 01/19/19 07:00 >= 60.00 (mL/min/1.73m2) 01/19/19 07:00 Glucose 136 mg/dL (70-100) H 01/19/19 07:00 Calcium 8.4 mg/dL (8.5-10.1) L 01/19/19 07:00 Magnesium 1.9 mg/dL (1.8-2.4) 01/19/19 07:00 0.2 mg/dL (0.2-1.0) 01/07/19 08:30 AST < 5 U/L (15-37) L 01/07/19 08:30 ALT 17 U/L (12-78) 01/07/19 08:30 108 U/L (46-116) 01/07/19 08:30 < 0.05 ng/mL (0.00-0.06) 01/07/19 08:30 NT-Pro-B Natriuret Pep 57 pg/mL (-299) 01/07/19 08:30 7.1 g/dL (6.4-8.2) 01/07/19 08:30 3.9 g/dL (3.4-5.0) 01/07/19 08:30 < 0.1 ng/mL 01/16/19 06:38
[2019-01-19] MEDS: predniSONE 20 MG TAB 40 MG PO (20:07)
[2019-01-20] VITALS (9 sets, daily range): BP systolic 119–151; BP diastolic 70–93; PULSE 91–130; RESP 2–21; TEMP 36.2–36.7; O2SAT 90–99
[2019-01-20] MEDS: Normal Saline Flush 10 ML SYR IVP ×3 (03:17→10:53)
[2019-01-20] MEDS: PIPERACILLIN/TAZO 3.375 GM in Normal Saline 50 ML IVPB ×2 (03:17→10:51)
[2019-01-20] MEDS: Benzonatate 200 MG CAP PO (05:59)
[2019-01-20] MEDS: Albuterol/Ipratropium 3 ML UPD VIAL UPD ×2 (05:59→11:55)
[2019-01-20] MEDS: Pantoprazole 40 MG TABCR PO (08:05)
[2019-01-20] MEDS: Roflumilast 500 MCG TAB PO (08:05)
[2019-01-20] MEDS: Lactobacillus Acidophilus CAP 1 CAP PO (08:05)
[2019-01-20] MEDS: levoFLOXacin 500 MG TAB PO (08:05)
[2019-01-20] MEDS: predniSONE 20 MG TAB 40 MG PO (08:05)
[2019-01-20] MEDS: Aspirin 325 MG TAB PO (08:05)
[2019-01-20] MEDS: guaiFENesin 600 MG TABCR PO (08:05)
[2019-01-20] MEDS: dilTIAZem CD 120 MG CAPCR PO (08:06)
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
--- NOTE | 2019-01-20 11:40 | CMDISCH_ITS ---
LACE Index Scoring Tool - Questions: Length of Stay (in days): 7 - 13 Acuity (Admit via E.D.?): Yes Comorbidities: Chronic Pulmonary Disease E.D. Visits: 1 - Answers: Total Score: 11 Risk of Readmission: High Risk Care Management Discharge Reason for Hospitalization: COPD Discharge Plan: Dave will be discharged home when medically ready per provider, he will have a new Trilogy unit through [facility] to support his respiratory function. [facility] will respond to Dave's home after discharge for further education and support. Dave will resume current supports through [facility] including his community advocate Mariana Cordon, FRICTION WELDING MACHINE OPERATOR, HC, RN, and LTC CFC in addition he will have orders for PT, OT. He will continue working with Martha and Lisa Mirza on coordination of a new [facility] home placement. CM coordinated [facility] transport for Dave to return home. He will utilize the FWW he has at home. JESSICA spoke to [facility] regarding tank needed for transport. [facility] responded and reported they had delivered the tank already. CM coordinated transport through [facility] once tank was delivered, transport @1345. CM left for Territory Sales Consultant requesting f/u appointment. CM notified [facility] of discharge planning. Patient/Family Education Needs: Review of discharge instructions, services and expectations post discharge. Discussed next steps and self care needs. Services Needed at Discharge: DME Agency, Home Health Care Services, Homemaking Services, Occupational Therapy, Oxygen Therapy, Respiratory Therapy, Respiratory Care Services, Physical Therapy, Transportation
[2019-01-20] MEDS: Budesonide 0.5 MG/2 ML UPD VIAL UPD (12:02)
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
== END 2019-01-20 13:38 | disposition home health service (06) | DRG 190 ==
LOC: ER 10:08 → MS 11:04
PROVIDERS: Internal Medicine; Admitting Provider Internal Medicine; Emergency Provider Student in an Organized Health Care Education/Training Program; PCP Family Medicine; Visit Provider Internal Medicine
DX: J44.0 Chronic obstructive pulmonary disease with (acute) lower respiratory infection (principal); J15.1 Pneumonia due to Pseudomonas; J96.11 Chronic respiratory failure with hypoxia; J44.1 Chronic obstructive pulmonary disease with (acute) exacerbation; J98.01 Acute bronchospasm; R07.89 Other chest pain; R00.0 Tachycardia, unspecified; R47.89 Other speech disturbances; I25.10 Atherosclerotic heart disease of native coronary artery without angina pectoris; I10 Essential (primary) hypertension; K21.9 Gastro-esophageal reflux disease without esophagitis; Z99.81 Dependence on supplemental oxygen; Z87.891 Personal history of nicotine dependence
CPT/HCPCS: 36415; 80048; 80053; 82805; 84145; 87077; 93005; 94060; 94618; 94640; 96365; 97110; 97162; 97530; 99223; 99232; 99233; 99239; 99254; 99291; J1650; 71045; 71046; 83735; 83880; 84484; 85025; 87070; 87186; 87205; 93010; J0696; J1941; J2543; J2930; J7512; J7613; J7620; J7626

== ENCOUNTER 2019-02-13 16:38 | Inpatient (IN) | payer MEDICAID, SELFPAY ==
[2019-02-13] VITALS (118 sets, daily range): BP systolic 95–173; BP diastolic 27–92; PULSE 0–207; RESP 4–42; TEMP 37–37.4; O2SAT 88–97
--- NOTE | 2019-02-13 16:42 | NUR.NOTE ---
Nursing Note: pt arrive from EMS states that he has had increase SOB past 4 days and has taken 3 duonebs today which has not relieved his SOB
--- NOTE | 2019-02-13 16:45 | DI.RAD_ITS ---
SYMPTOM/DIAGNOSIS: SOB, COPD, DYSPNEA, TACHYCARDIA CTA CHEST: CT angiography was performed with multi slice acquisition and multi planar and 3D reconstruction. CT angiography of the chest was performed with a bolus infusion of 65 cc's of Omnipaque 350. There is no evidence of pulmonary embolic disease. No thoracic aortic dissection or aneurysm is seen. No mediastinal or hilar adenopathy. No pleural effusion or pleural based mass. There is some bronchiectasis predominantly in the lower lobes, otherwise tracheobronchial tree is unremarkable. There are changes of diffuse centrilobular emphysema which is moderate to severe. No pulmonary mass or consolidation is seen. Pulmonary interstitial prominence noted. 6 mm. non calcified peripheral nodule noted in the right lower lobe laterally, this is unchanged from previous CT of 05/2015. Images obtained through the upper abdomen show unremarkable appearance of visualized portions of the liver, spleen, pancreas, adrenals, kidneys, gallbladder and bile ducts. CONCLUSION: Moderate to severe centrilobular emphysema. No evidence of pulmonary embolic disease. PORTABLE AP CHEST AT 1700 HOURS: The heart is not enlarged. There are changes of COPD and pulmonary fibrosis. Question slight interval worsening in comparison with 01/18/19 but the changes may just be due to technique. No gross consolidation identified. Please see chest CTA report.
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
[2019-02-13] MEDS: MAGNESIUM SULFATE 2 GM/50 ML BAG IVPB (16:54)
[2019-02-13 16:58] LABS: Abs Immature Grans 0.93 k/cumm (0.0-0.09); HCT 38.7 % (40.0-50.0); HGB 11.5 g/dL (13.5-17.5); Mean Corp. HGB Concentration 29.7 g/dL (32.0-36.0); Mean Corpuscular Hemoglobin 26.7 pg (27.0-33.0); Mean Corpuscular Volume 89.8 fL (80-95); Mean Platelet Volume 8.2 fL (8.0-11.0); RBC 4.31 m/cumm (4.50-6.00); RBC Distribution Width 15.1 % (11.8-14.1); White Blood Cell Count 17.34 k/cumm (4.4-10.8)
--- NOTE | 2019-02-13 17:01 | NUR.NOTE ---
Nursing Note: Respiratory therapist at bedside
[2019-02-13] MEDS: Albuterol/Ipratropium 3 ML UPD VIAL UPD (17:02)
--- NOTE | 2019-02-13 17:12 | NUR.NOTE ---
Nursing Note: pt reports slight improvement in symptoms. oxygen saturation up to 94%.
[2019-02-13 17:13] LABS: Platelet Count 981 x1000/uL (130-400)
[2019-02-13 17:14] LABS: Absolute Eosinophil Count 0.17 k/cumm (0.0-0.7); Absolute Lymphocyte Count 3.99 k/cumm (1.2-3.4); Absolute Monocyte Count 1.04 k/cumm (0.11-0.7); Absolute Neutrophil Count 10.75 k/cumm (1.2-6.7); Atypical Lymphocytes % 0; Diff Comment Manual Differential
[2019-02-13 17:15] LABS: Hypochromasia 2+; Prothrombin Time 9.6 sec (9.3-11.0); Schistocytes 2+
[2019-02-13 17:16] LABS: HCO3 41 mmol/L (22-28); pH 7.32 (7.35-7.45); pO2 71 mmHg (83-108); sO2 93 % (94-98); tCO2 38 mmol/L (22-29)
[2019-02-13 17:18] LABS: BE 14.7 mmol/L (-3-3); FIO2 40% %; Site Right Radial; pCO2 81 mmHg (34-47)
[2019-02-13 17:23] LABS: ALT 19 U/L (12-78); AST 6 U/L (15-37); Albumin 2.8 g/dL (3.4-5.0); Alkaline Phosphatase 143 U/L (46-116); Anion Gap 4.8 mmol/L (3-11); BUN 16 mg/dL (7-18); Bilirubin, Total 0.1 mg/dL (0.2-1.0); CO2 39.2 mmol/L (21.0-32.0); CREATININE 0.71 mg/dL (0.70-1.30); Chloride 99 mmol/L (98-107); Glucose 141 mg/dL (70-100); Magnesium 1.6 mg/dL (1.8-2.4); Potassium 3.3 mmol/L (3.5-5.1); Sodium 143 mmol/L (136-145); Total Protein 7.3 g/dL (6.4-8.2)
[2019-02-13 17:27] LABS: Troponin I < 0.05 ng/mL (0.00-0.06)
[2019-02-13 17:28] LABS: NT-proBNP 62 pg/mL
--- NOTE | 2019-02-13 17:30 | DI.VRAD_ITS ---
EXAM: XR Chest, 1 View EXAM DATE/TIME: 02/13/2019 4:47 PM CLINICAL HISTORY: 63 years old, male; Shortness of breath TECHNIQUE: Imaging protocol: XR of the chest, 1 view. COMPARISON: CR XR CHEST 2V PA LATERAL 01/18/2019 11:22 AM FINDINGS: Lungs: Increased interstitial lung markings suggesting edema, infection or fibrotic changes. Pleural space: Cannot exclude small pleural effusions. Heart/Mediastinum: Unremarkable. No cardiomegaly. Bones/joints: Unremarkable. IMPRESSION: Increased interstitial lung markings suggesting edema, infection or fibrotic changes. Worsened. Cannot exclude small pleural effusions. Stable. Dictated and Authenticated by: Mary Jo Zaman MD. Ordering:JAYJAY Miranda MD
[2019-02-13] MEDS: LORazepam 2 MG/ML VIAL 0.25 MG IVP (17:51)
--- NOTE | 2019-02-13 18:27 | NUR.NOTE ---
Nursing Note: pt found to be in SVT, HR 204. MD Ulloa immediately to bedside.
--- NOTE | 2019-02-13 18:33 | NUR.NOTE ---
Nursing Note: Vagal maneuver preformed. pt told to continuously bare down, HR now 117 bpm. Repeat EKG performed. Cardizem to be ordered.
[2019-02-13] MEDS: dilTIAZem 25 MG/5 ML VIAL 10 MG IVP (18:38)
[2019-02-13] MEDS: Omnipaque 350 MG/ML 100 ML BTL IJ (19:16)
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
--- NOTE | 2019-02-13 19:33 | DI.VRAD_ITS ---
EXAM: CT Angiography Chest With Contrast EXAM DATE/TIME: 02/13/2019 7:14 PM CLINICAL HISTORY: 63 years old, male; Patient HX: Copd, dyspnea, tachycardia TECHNIQUE: Imaging protocol: Axial computed tomographic angiography images of the chest with intravenous contrast using CT angiography protocol. Coronal and sagittal reformatted images were created and reviewed. 3D rendering: MIP reconstructed images were created and reviewed. COMPARISON: CT CHEST WITH CONTRAST 05/09/2015 8:55 AM FINDINGS: Pulmonary arteries: Normal. No pulmonary emboli. Aorta: Unremarkable. No aortic aneurysm. No aortic dissection. Lungs: Moderate centrilobular pulmonary emphysema. 6 mm pleural-based pulmonary nodule in the lateral segment of the right lower lobe (5/72). Mild wall thickening in the bronchi to just bronchitis. Mild bronchiectasis. Pleural space: Unremarkable. No pneumothorax. No pleural effusion. Heart: Unremarkable. No cardiomegaly. No pericardial effusion. Intraperitoneal space: Small amount of loculated fluid along the left major fissure. Lymph nodes: Unremarkable. No enlarged lymph nodes. Bones/joints: Unremarkable. No acute fracture. Soft tissues: Unremarkable. IMPRESSION: 1. Moderate centrilobular pulmonary emphysema. 2. 6 mm pleural-based pulmonary nodule in the lateral segment of the right lower lobe (5/72). For patients at low risk (minimal or absent history of smoking and of other known risk factors), recommend CT at 6-12 months, then consider CT at 18-24 months. For patients at high risk (history of smoking or of other known risk factors), recommend CT at 6-12 months, then CT at 18-24 months. (Kika et al., Fleischner Society, 2017) 3. Small amount of loculated fluid along the left major fissure. 4. Mild wall thickening in the bronchi to just bronchitis. 5. Mild bronchiectasis. Dictated and Authenticated by: Mary Jo Zaman MD. Ordering:JAYJAY Miranda MD
[2019-02-13] MEDS: POTASSIUM CHLORIDE 10 MEQ/100 ML BAG 100 MEQ IVPB ×2 (20:15→22:32)
[2019-02-13 21:01] LABS: TSH (W/Ref FT4) 0.15 uIU/mL (0.36-3.74); Troponin I < 0.05 ng/mL (0.00-0.06)
[2019-02-13 21:19] LABS: FREE T4 1.26 ng/dL (0.76-1.46)
[2019-02-13] MEDS: Heparin 5,000 UNITS/ML VIAL 5000 UNITS SC (22:32)
[2019-02-13] MEDS: methylPREDNISolone SUCC 125 MG VIAL IVP (22:32)
[2019-02-13] MEDS: dilTIAZem 60 MG TAB PO (22:59)
[2019-02-14] VITALS (52 sets, daily range): BP systolic 109–135; BP diastolic 53–80; PULSE 76–104; RESP 1–35; TEMP 36–36.9; O2SAT 88–99
[2019-02-14 00:07] LABS: Troponin I < 0.05 ng/mL (0.00-0.06)
--- NOTE | 2019-02-14 00:46 | NUR.NOTE ---
Called and spoke with [facility] pharmacy Lash[place] and asked her to re-time the Doxycycline and Mucinex as the doses will not pull up in the pyxis and they are past time now that we are able to give them. Also asked her to re-time the diltiazem PO to q 8hr per MD Jazlyn noonan instead of TID. Nursing Note:
[2019-02-14] MEDS: guaiFENesin 600 MG TABCR PO ×3 (01:55→20:24)
[2019-02-14] MEDS: DOXYCYCLINE 100 MG in Normal Saline 100 ML IVPB (01:55)
[2019-02-14] MEDS: methylPREDNISolone SUCC 125 MG VIAL IVP (05:48)
[2019-02-14] MEDS: Heparin 5,000 UNITS/ML VIAL 5000 UNITS SC ×3 (05:48→22:05)
[2019-02-14] MEDS: dilTIAZem 60 MG TAB PO ×3 (05:49→22:04)
[2019-02-14] MEDS: Albuterol/Ipratropium 3 ML UPD VIAL UPD ×3 (05:49→18:12)
[2019-02-14 07:19] LABS: HCT 37.3 % (40.0-50.0); Mean Corp. HGB Concentration 29.5 g/dL (32.0-36.0); Mean Corpuscular Hemoglobin 26.3 pg (27.0-33.0); Mean Platelet Volume 8.6 fL (8.0-11.0); RBC 4.19 m/cumm (4.50-6.00); RBC Distribution Width 14.9 % (11.8-14.1); White Blood Cell Count 12.42 k/cumm (4.4-10.8)
[2019-02-14 07:37] LABS: ALT 21 U/L (12-78); AST 9 U/L (15-37); Albumin 2.5 g/dL (3.4-5.0); Alkaline Phosphatase 132 U/L (46-116); Anion Gap 4.5 mmol/L (3-11); BUN 16 mg/dL (7-18); Bilirubin, Total 0.1 mg/dL (0.2-1.0); CO2 37.5 mmol/L (21.0-32.0); CREATININE 0.59 mg/dL (0.70-1.30); Chloride 98 mmol/L (98-107); Glucose 180 mg/dL (70-100); Magnesium 1.8 mg/dL (1.8-2.4); Sodium 140 mmol/L (136-145); Total Protein 6.8 g/dL (6.4-8.2)
[2019-02-14 07:38] LABS: Platelet Count 896 x1000/uL (130-400)
[2019-02-14] MEDS: Omeprazole 20 MG CAPCR PO ×2 (07:49→08:38)
[2019-02-14] MEDS: Aspirin 325 MG TAB PO (07:49)
[2019-02-14 08:01] LABS: Calcium 8.7 mg/dL (8.5-10.1)
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
--- NOTE | 2019-02-14 08:28 | W.PM.PROGNOT ---
Date of Service Date of service: 02/14/19 Time of Service: 08:28 Assessment and Plan (1) Acute exacerbation of chronic obstructive pulmonary disease (COPD): Current visit: No Status: Acute Already mildly improved. No evidence of PNA. Procalcitonin negative - will d/c antibiotics. Attempt to get patient's trilogy machine here and his trelogy inhaler. Continue current dose of IV steroids, scheduled and prn nebs, daliresp. Provide VibraPep. Consult palliative care. (2) Acute on chronic respiratory failure with hypoxia and hypercapnia: Current visit: Yes Status: Acute Already improving. Attempting to get patient's home trilogy machine here. For now, will use our BiPAP prn/HS. Treatment of COPD as above. (3) PSVT (paroxysmal supraventricular tachycardia): Current visit: Yes Status: Acute Obtaining EKG this am. (4) Hypertension: Current visit: No Status: Chronic BP's are adequately controlled on current doses of diltiazem - will attempt to transition to long acting tomorrow. (5) Hyperlipidemia: Current visit: No Status: Chronic Not on a statin as outpatient - follow up as outpatient. (6) GERD (gastroesophageal reflux disease): Current visit: No Status: Chronic Increase PPI while on IV steroids (7) Discharge planning issues: Current visit: No Status: Acute Full code Palliative care consult (8) DVT prophylaxis: Current visit: No Status: Acute Heparin SC Subjective Interval history since last seen: Afebrile, spent the night on BiPAP. Now on 3L (his baseline). Sounds diminished. Had bursts of SVT vs Afib overnight, resolves with vagal maneuvers. Last seen at 23:50, none since. States he feels better than yesterday, but dizzy even when laying down. Denies chest pain. States he is short of breath and is interested in getting an updraft. Denies nausea/vomiting. States he cannot go back to the house where he came from. He is interested in talking to case management. He shows me a letter which he pulled out of his wallet where he wrote down how living at home with his brother in law made him feel. Exam Narrative Exam Narrative: General: anxious male with a speech impediment, A&Ox3, appears to be at his baseline from the mental status stand point, moderately tachypneic while talking HEENT: EOMI, MMM Heart: irregularly irregular, no m/r/g Lungs: Diminished breath sounds B, but does have aeration throughout both lungs; no wheezing auscultated Abdomen: soft, nontender, nondistended Extremities: no e/c/c BLE's Objective Objective Clinical Data: Abnormal lab results 02/13/19 02/13/19 02/13/19 Range/Units 16:50 16:50 17:01 WBC 17.34 H (4.4-10.8) k/cumm RBC 4.31 L (4.50-6.00) m/cumm Hgb 11.5 L (13.5-17.5) g/dL Hct 38.7 L (40.0-50.0) % MCH 26.7 L (27.0-33.0) pg MCHC 29.7 L (32.0-36.0) g/dL RDW 15.1 H (11.8-14.1) % Plt Count 981 H* D (130-400) x1000/uL Absolute Neutrophils 10.75 H (1.2-6.7) k/cumm Absolute Lymphocytes 3.99 H (1.2-3.4) k/cumm Absolute Monocytes 1.04 H (0.11-0.7) k/cumm pCO2 81 H* (34-47) mmHg pO2 71 L (83-108) mmHg O2 Saturation 93 L (94-98) % ABG pH 7.32 L (7.35-7.45) ABG HCO3 41 H (22-28) mmol/L ABG Total CO2 38 H (22-29) mmol/L ABG Base Excess 14.7 H (-3-3) mmol/L Potassium 3.3 L (3.5-5.1) mmol/L Carbon Dioxide 39.2 H (21.0-32.0) mmol/L Creatinine (0.70-1.30) mg/dL Glucose 141 H (70-100) mg/dL Magnesium 1.6 L (1.8-2.4) mg/dL Total Bilirubin 0.1 L (0.2-1.0) mg/dL AST 6 L (15-37) U/L Alkaline Phosphatase 143 H (46-116) U/L Albumin 2.8 L (3.4-5.0) g/dL TSH (0.36-3.74) uIU/mL 02/13/19 02/14/19 02/14/19 Range/Units 20:30 06:45 06:45 WBC 12.42 H (4.4-10.8) k/cumm RBC 4.19 L (4.50-6.00) m/cumm Hgb 11.0 L (13.5-17.5) g/dL Hct 37.3 L (40.0-50.0) % MCH 26.3 L (27.0-33.0) pg MCHC 29.5 L (32.0-36.0) g/dL RDW 14.9 H (11.8-14.1) % Plt Count 896 H* (130-400) x1000/uL Absolute Neutrophils (1.2-6.7) k/cumm Absolute Lymphocytes (1.2-3.4) k/cumm Absolute Monocytes (0.11-0.7) k/cumm pCO2 (34-47) mmHg pO2 (83-108) mmHg O2 Saturation (94-98) % ABG pH (7.35-7.45) ABG HCO3 (22-28) mmol/L ABG Total CO2 (22-29) mmol/L ABG Base Excess (-3-3) mmol/L Potassium (3.5-5.1) mmol/L Carbon Dioxide 37.5 H (21.0-32.0) mmol/L Creatinine 0.59 L (0.70-1.30) mg/dL Glucose 180 H (70-100) mg/dL Magnesium (1.8-2.4) mg/dL Total Bilirubin 0.1 L (0.2-1.0) mg/dL AST 9 L (15-37) U/L Alkaline Phosphatase 132 H (46-116) U/L Albumin 2.5 L (3.4-5.0) g/dL TSH 0.15 L (0.36-3.74) uIU/mL Vital Signs Temperature 36 C L 02/14/19 02:00 Temperature Source Temporal Artery Scan 02/14/19 02:00 Pulse 84 02/14/19 05:42 Pulse Rhythm Irregular 02/14/19 02:00 Pulse 87 02/14/19 05:42 Respiratory Rate 25 H 02/14/19 05:42 Respiratory Effort 02/14/19 02:00 Respiratory Depth Normal 02/14/19 02:00 Respiratory Pattern Normal 02/14/19 02:00 Blood Pressure 135/61 02/14/19 05:42 Blood Pressure Mean 75 02/14/19 05:42 Blood Pressure Position Sitting 02/13/19 16:43 Pulse Oximetry 97 02/14/19 05:42 Oxygen Delivery Method Bi-pap 02/14/19 04:00 Oxygen Flow Rate 8 02/13/19 16:43 Fraction of Inspired Oxygen (FIO2) 30 02/14/19 04:00 Pain Level 0 02/13/19 21:15 Comment 02/14/19 02:00 Intake & Output 02/13/19 02/13/19 02/14/19 11:59 23:59 11:59 Intake Total 235.833 / 235.833 500 / 500 Output Total 400 / 400 200 / 200 Balance -164.167 / -164.167 300 / 300 Weight 72 kg 72.5 kg Intake: IV 135.833 / 135.833 200 / 200 Oral 100 / 100 300 / 300 Output: Urine 400 / 400 200 / 200 Other: Urine Color Light Elly Light Elly Urine Appearance Clear Clear Urine Odor Strong Strong Stool Size Small Stool Characteristics Soft Voiding Methods Urinal Urinal Laboratory Results WBC 12.42 k/cumm (4.4-10.8) H 02/14/19 06:45 RBC 4.19 m/cumm (4.50-6.00) L 02/14/19 06:45 Hgb 11.0 g/dL (13.5-17.5) L 02/14/19 06:45 Hct 37.3 % (40.0-50.0) L 02/14/19 06:45 MCV 89.0 fL (80-95) 02/14/19 06:45 MCH 26.3 pg (27.0-33.0) L 02/14/19 06:45 MCHC 29.5 g/dL (32.0-36.0) L 02/14/19 06:45 RDW 14.9 % (11.8-14.1) H 02/14/19 06:45 Plt Count 896 x1000/uL (130-400) H* 02/14/19 06:45 MPV 8.6 fL (8.0-11.0) 02/14/19 06:45 Immature Gran % 0.0 02/13/19 16:50 62.0 02/13/19 16:50 0.0 % 02/13/19 16:50 23.0 02/13/19 16:50 Atypical Lymphs % 0 02/13/19 16:50 6.0 02/13/19 16:50 1.0 02/13/19 16:50 0.0 02/13/19 16:50 5.0 % 02/13/19 16:50 3.0 % 02/13/19 16:50 Absolute Neutrophils 10.75 k/cumm (1.2-6.7) H 02/13/19 16:50 Absolute Lymphocytes 3.99 k/cumm (1.2-3.4) H 02/13/19 16:50 Absolute Monocytes 1.04 k/cumm (0.11-0.7) H 02/13/19 16:50 Absolute Eosinophils 0.17 k/cumm (0.0-0.7) 02/13/19 16:50 Absolute Basophils 0.00 k/cumm (0.0-0.2) 02/13/19 16:50 Manual differential 02/13/19 16:50 RBC Morphology See below 02/13/19 16:50 2+ 02/13/19 16:50 2+ 02/13/19 16:50 PT 9.6 sec (9.3-11.0) 02/13/19 16:50 INR 1.0 (0.9-1.1) 02/13/19 16:50 APTT 25.0 sec (21.0-31.4) 02/13/19 16:50 Sample Site Right radial 02/13/19 17:01 pCO2 81 mmHg (34-47) H* 02/13/19 17:01 pO2 71 mmHg (83-108) L 02/13/19 17:01 O2 Saturation 93 % (94-98) L 02/13/19 17:01 ABG pH 7.32 (7.35-7.45) L 02/13/19 17:01 ABG HCO3 41 mmol/L (22-28) H 02/13/19 17:01 ABG Total CO2 38 mmol/L (22-29) H 02/13/19 17:01 ABG Base Excess 14.7 mmol/L (-3-3) H 02/13/19 17:01 Oxygen Liter Flow Bipap 10/5 L 02/13/19 17:01 40% % 02/13/19 17:01 Sodium 140 mmol/L (136-145) 02/14/19 06:45 Potassium 4.0 mmol/L (3.5-5.1) D 02/14/19 06:45 Chloride 98 mmol/L (98-107) 02/14/19 06:45 Carbon Dioxide 37.5 mmol/L (21.0-32.0) H 02/14/19 06:45 4.5 mmol/L (3-11) 02/14/19 06:45 BUN 16 mg/dL (7-18) 02/14/19 06:45 0.59 mg/dL (0.70-1.30) L 02/14/19 06:45 >= 60.00 (mL/min/1.73m2) 02/14/19 06:45 Glucose 180 mg/dL (70-100) H 02/14/19 06:45 Calcium 8.7 mg/dL (8.5-10.1) 02/14/19 06:45 Magnesium 1.8 mg/dL (1.8-2.4) 02/14/19 06:45 0.1 mg/dL (0.2-1.0) L 02/14/19 06:45 AST 9 U/L (15-37) L 02/14/19 06:45 ALT 21 U/L (12-78) 02/14/19 06:45 132 U/L (46-116) H 02/14/19 06:45 < 0.05 ng/mL (0.00-0.06) 02/13/19 20:30 NT-Pro-B Natriuret Pep 62 pg/mL (-299) 02/13/19 16:50 6.8 g/dL (6.4-8.2) 02/14/19 06:45 2.5 g/dL (3.4-5.0) L 02/14/19 06:45 TSH 0.15 uIU/mL (0.36-3.74) L 02/13/19 20:30 Free T4 1.26 ng/dL (0.76-1.46) 02/13/19 20:30
[2019-02-14] MEDS: Roflumilast 500 MCG TAB PO (08:38)
[2019-02-14 08:49] LABS: Procalcitonin < 0.1 ng/mL
[2019-02-14] MEDS: Budesonide 0.5 MG/2 ML UPD VIAL UPD ×2 (11:34→20:24)
--- NOTE | 2019-02-14 11:56 | PHARADMIT ---
Addendum entered by Katia Viramontes 02/20/19 10:36: Pharmacy Note Subjective oxygen @ 3L/min Objective VS ok, Mag 1.7, WBC ~same 34.73 (steroids) Assessment Zosyn changed to oral Levaquin per sensitivities-Pseudomonas in sputum-heavy (same as last admission) noticed Vit B12 injection was ordered 02/16 but doesn't appear given...will let coordinator know Plan Anticipate discharge soon Addendum entered by Martha Trent 02/19/19 16:20: Pharmacy Note Subjective slow to improve, but MD does think he is improving Objective HR-96 other VS okay mag-1.8(up) Assessment -sputum culture growing psuedomonas, not sure if colonization but treating since pt reporting not feeling well. currently on zosyn (day 2 starts this evening) -prednisone dose increased yesterday back to BID Plan continue to watch VS, labs and for med changes Addendum entered by Kallie Granados 02/16/19 11:58: Pharmacy Note Subjective using RT trilogy overnight seeming to help pt be more comfortable Objective WBC up possibly due to steroids, Assessment methylprednisolone dose decreased slightly Plan palliative consult ordered Addendum entered by Martha Trent 02/15/19 11:53: Pharmacy Note Subjective pulmonary exam worse today per progress note Objective BP-101/44 HR-94 other VS okay WBC-26.9(up) ANC-22.87(up) plt-851(down) procalcitonin <0.1 Assessment albuterol changed from Q6H to Q4H scheduled diltiazem changed from IR to CR symbicort ordered (in addition to budesonide updraft as pt takes budesonide as well as trelegy at home per MD) Plan continue to watch VS, labs and for med changes Original Note: Admission Pharmacy Clinical Review COPD EXACERBATION, PULMONARY FIBROSIS, A-Fib W/rvr Code Status Full Code Current Weight Wgt-72.5 kg Renally Cleared and Narrow Therapeutic Index Meds CrCl~ 95 mL/min Meds-OK QTc Value / Action Taken QTc-421 NA BP Control, Fever BP-120/72 Tmax- 37C Electrolytes reviewed Na- 140 K+4.0 Mag-1.8 DVT Prophylaxis ASA, Heparin-SQ Opiate Usage / Scheduled Bowel Regimen Ordered No Yes Plt/SCr for Heparin / Enoxaparin Plts- 896 SCr-0.59 INR for Warfarin inr-1.0 H/H stable, WBC/Bands H&H- 11.0/37.3 WBC- 12.42 Antibiotic appropriateness none Cultures and Sensitivities none Surgical ABX d/c within 24 hr NA DM control / Insulin Dosing BG-180 Heart Failure (Check EF%) (MEL's, B-Block, Diuretics) Diltiazem, IV to PO Switch No Home Meds Reviewed Yes Home Meds Not Ordered Acidophilis, Trelegy Dayta, Levaqcara Comments
[2019-02-14] MEDS: Ketoconazole 2% CREAM 15 GM TUBE TP (11:58)
[2019-02-14] MEDS: methylPREDNISolone SUCC 125 MG VIAL 80 MG IVP ×2 (13:57→22:04)
--- NOTE | 2019-02-14 14:40 | RESPIRATORY ---
Patient's Trilogy ventilator was brought. The padding around the mask was missing so it was not used. A call was put out to the family to try to bring the padding in.
[2019-02-14] MEDS: Albuterol 2.5 MG/3 ML INH SOLN VIAL UPD (15:54)
[2019-02-15] VITALS (19 sets, daily range): BP systolic 101–141; BP diastolic 44–79; PULSE 77–99; RESP 1–27; TEMP 36.7; O2SAT 93–98
[2019-02-15] MEDS: Albuterol/Ipratropium 3 ML UPD VIAL UPD ×5 (00:08→19:48)
[2019-02-15] MEDS: dilTIAZem 60 MG TAB PO (05:59)
[2019-02-15] MEDS: methylPREDNISolone SUCC 125 MG VIAL 80 MG IVP ×3 (06:00→20:51)
[2019-02-15] MEDS: Heparin 5,000 UNITS/ML VIAL 5000 UNITS SC ×3 (06:00→20:51)
[2019-02-15 07:25] LABS: Abs Immature Grans 1.36 k/cumm (0.0-0.09); HCT 37.7 % (40.0-50.0); HGB 11.2 g/dL (13.5-17.5); Mean Corp. HGB Concentration 29.7 g/dL (32.0-36.0); Mean Corpuscular Hemoglobin 26.2 pg (27.0-33.0); Mean Corpuscular Volume 88.3 fL (80-95); RBC 4.27 m/cumm (4.50-6.00); RBC Distribution Width 15.2 % (11.8-14.1)
[2019-02-15] MEDS: Budesonide 0.5 MG/2 ML UPD VIAL UPD ×2 (07:33→20:51)
[2019-02-15 07:46] LABS: Anion Gap 4.7 mmol/L (3-11); BUN 19 mg/dL (7-18); CO2 37.3 mmol/L (21.0-32.0); CREATININE 0.72 mg/dL (0.70-1.30); Chloride 100 mmol/L (98-107); Glucose 213 mg/dL (70-100); Magnesium 1.9 mg/dL (1.8-2.4); Potassium 4.2 mmol/L (3.5-5.1); Sodium 142 mmol/L (136-145); TSH (W/Ref FT4) 0.09 uIU/mL (0.36-3.74)
[2019-02-15 07:54] LABS: Procalcitonin < 0.1 ng/mL
[2019-02-15 08:05] LABS: FREE T4 1.07 ng/dL (0.76-1.46)
[2019-02-15 08:24] LABS: Platelet Count 851 x1000/uL (130-400)
[2019-02-15 08:25] LABS: Absolute Lymphocyte Count 2.15 k/cumm (1.2-3.4); Absolute Monocyte Count 1.08 k/cumm (0.11-0.7); Absolute Neutrophil Count 22.87 k/cumm (1.2-6.7)
[2019-02-15 08:26] LABS: Diff Comment Manual Differential
--- NOTE | 2019-02-15 08:40 | W.PM.PROGNOT ---
Date of Service Date of service: 02/15/19 Time of Service: 08:40 Assessment and Plan (1) Acute exacerbation of chronic obstructive pulmonary disease (COPD): Current visit: No Status: Acute Reports that he has improved, but pulmonary exam is worse today (not hearing many breath sounds). No evidence of PNA. Procalcitonin negative - taken off abx yesterday. Worsening leucocytosis in this patient is reactive and is a pattern we've seen before. Continue current dose of IV steroids, scheduled and prn nebs, daliresp. Scheduled duonebs increased to Q4H; contrinue vibrapep. Collect sputum sample - patient describes it as clear to white to yellow (not green like last time). Continue trilogy. Palliative care consulted. (2) Acute on chronic respiratory failure with hypoxia and hypercapnia: Current visit: Yes Status: Acute As above (3) PSVT (paroxysmal supraventricular tachycardia): Current visit: Yes Status: Acute Clinically resolved. Could be related to low TSH/suspected hyperthyroidism - undergoing investigation. No recurrences in the last 24 hours. Continue to monitor on tele. (4) Hypertension: Current visit: No Status: Chronic BP's are adequately controlled on current doses of diltiazem. Transitioning to long active cardizem today. (5) Hyperlipidemia: Current visit: No Status: Chronic Not on a statin as outpatient - follow up as outpatient. (6) GERD (gastroesophageal reflux disease): Current visit: No Status: Chronic Continue PPI (7) Low TSH level: Current visit: Yes Status: Acute FT4 nml - checking total T4, total and free T3, as well as thyroid antibodies. The patient does not have a goiter on exam. It is possible that he is euthyroid. (8) Reactive thrombocytosis: Current visit: Yes Status: Acute Discussed with pathology - there is no indication of malignancy based on the appearance of peripheral smear. Could be reactive. Will continue to monitor. I am also checking iron studies given borderline MCV. (9) DVT prophylaxis: Current visit: No Status: Acute Heparin SC (10) Discharge planning issues: Current visit: No Status: Acute Full code Palliative care consult Subjective Interval history since last seen: Denies dizziness, endorses chest tightness, but not chest pain, feels short of breath and tight, but better than yesterday (thinks it's time for his nebulizer treatment); denies abdominal pain, nausea, vomiting. Gets emotional when talking about how much he does not want to go back to that house. All parts of trilogy have been located, and the patient has been using it on and off this morning. No episodes of SVT/Afib. Afebrile. O2 sat 90's on 3L - didn't use BiPAP at night - refused it. Exam Narrative Exam Narrative: General: anxious male with a speech impediment, A&Ox3, appears to be at his baseline from the mental status stand point, looks less tachypneic today HEENT: EOMI, MMM Heart: RRR, no m/r/g Lungs: Very diminished breath sounds B today - I cannot hear breath sounds Abdomen: soft, nontender, nondistended Extremities: no e/c/c BLE's Objective Objective Clinical Data: Abnormal lab results 02/15/19 02/15/19 Range/Units 06:25 06:25 WBC 26.90 H* D (4.4-10.8) k/cumm RBC 4.27 L (4.50-6.00) m/cumm Hgb 11.2 L (13.5-17.5) g/dL Hct 37.7 L (40.0-50.0) % MCH 26.2 L (27.0-33.0) pg MCHC 29.7 L (32.0-36.0) g/dL RDW 15.2 H (11.8-14.1) % Plt Count 851 H* (130-400) x1000/uL Absolute Neutrophils 22.87 H (1.2-6.7) k/cumm Absolute Monocytes 1.08 H (0.11-0.7) k/cumm Carbon Dioxide 37.3 H (21.0-32.0) mmol/L BUN 19 H (7-18) mg/dL Glucose 213 H (70-100) mg/dL TSH 0.09 L (0.36-3.74) uIU/mL Vital Signs Temperature 36.7 C 02/15/19 00:00 Temperature Source Temporal Artery Scan 02/15/19 00:00 Pulse 80 02/15/19 08:20 Pulse Rhythm Regular 02/15/19 02:07 Pulse 85 02/14/19 18:00 Respiratory Rate 24 02/15/19 08:20 Respiratory Effort 02/15/19 02:07 Respiratory Depth Normal 02/15/19 02:07 Respiratory Pattern Normal 02/14/19 21:24 Blood Pressure 130/67 02/15/19 00:00 Blood Pressure Mean 79 02/14/19 16:00 Blood Pressure Position Sitting 02/13/19 16:43 Pulse Oximetry 93 L 02/15/19 08:20 Oxygen Delivery Method Nasal Cannula 02/15/19 00:00 Oxygen Flow Rate 3 02/15/19 08:20 Fraction of Inspired Oxygen (FIO2) 30 02/14/19 14:42 Pain Level 0 02/15/19 00:00 Comment 02/14/19 02:00 Intake & Output 02/14/19 02/14/19 02/15/19 11:59 23:59 11:59 Intake Total 680 / 920 240 / 920 Output Total 200 / 800 600 / 800 450 / 450 Balance 480 / 120 -360 / 120 -450 / -450 Weight 72.5 kg 74.4 kg Intake: IV 200 / 200 Oral 480 / 720 240 / 720 Output: Urine 200 / 800 600 / 800 450 / 450 Other: Urine Color Light Elly Straw Straw Urine Appearance Clear Clear Clear Urine Odor Strong None None Stool Occult Blood Negative Stool Size Small Stool Characteristics Mucoid Voiding Methods Urinal Urinal Urinal Laboratory Results WBC 26.90 k/cumm (4.4-10.8) H* D 02/15/19 06:25 RBC 4.27 m/cumm (4.50-6.00) L 02/15/19 06:25 Hgb 11.2 g/dL (13.5-17.5) L 02/15/19 06:25 Hct 37.7 % (40.0-50.0) L 02/15/19 06:25 MCV 88.3 fL (80-95) 02/15/19 06:25 MCH 26.2 pg (27.0-33.0) L 02/15/19 06:25 MCHC 29.7 g/dL (32.0-36.0) L 02/15/19 06:25 RDW 15.2 % (11.8-14.1) H 02/15/19 06:25 Plt Count 851 x1000/uL (130-400) H* 02/15/19 06:25 MPV 9.0 fL (8.0-11.0) 02/15/19 06:25 Immature Gran % See Differential 02/15/19 06:25 85.0 02/15/19 06:25 0.0 % 02/13/19 16:50 8.0 02/15/19 06:25 Atypical Lymphs % 0 02/13/19 16:50 4.0 02/15/19 06:25 0.0 02/15/19 06:25 0.0 02/15/19 06:25 2.0 % 02/15/19 06:25 1.0 % 02/15/19 06:25 Absolute Neutrophils 22.87 k/cumm (1.2-6.7) H 02/15/19 06:25 Absolute Lymphocytes 2.15 k/cumm (1.2-3.4) 02/15/19 06:25 Absolute Monocytes 1.08 k/cumm (0.11-0.7) H 02/15/19 06:25 Absolute Eosinophils 0.00 k/cumm (0.0-0.7) 02/15/19 06:25 Absolute Basophils 0.00 k/cumm (0.0-0.2) 02/15/19 06:25 Manual differential 02/15/19 06:25 RBC Morphology See below 02/13/19 16:50 2+ 02/13/19 16:50 2+ 02/13/19 16:50 PT 9.6 sec (9.3-11.0) 02/13/19 16:50 INR 1.0 (0.9-1.1) 02/13/19 16:50 APTT 25.0 sec (21.0-31.4) 02/13/19 16:50 Sample Site Right radial 02/13/19 17:01 pCO2 81 mmHg (34-47) H* 02/13/19 17:01 pO2 71 mmHg (83-108) L 02/13/19 17:01 O2 Saturation 93 % (94-98) L 02/13/19 17:01 ABG pH 7.32 (7.35-7.45) L 02/13/19 17:01 ABG HCO3 41 mmol/L (22-28) H 02/13/19 17:01 ABG Total CO2 38 mmol/L (22-29) H 02/13/19 17:01 ABG Base Excess 14.7 mmol/L (-3-3) H 02/13/19 17:01 Oxygen Liter Flow Bipap 10/5 L 02/13/19 17:01 40% % 02/13/19 17:01 Sodium 142 mmol/L (136-145) 02/15/19 06:25 Potassium 4.2 mmol/L (3.5-5.1) 02/15/19 06:25 Chloride 100 mmol/L (98-107) 02/15/19 06:25 Carbon Dioxide 37.3 mmol/L (21.0-32.0) H 02/15/19 06:25 4.7 mmol/L (3-11) 02/15/19 06:25 BUN 19 mg/dL (7-18) H 02/15/19 06:25 0.72 mg/dL (0.70-1.30) 02/15/19 06:25 >= 60.00 (mL/min/1.73m2) 02/15/19 06:25 Glucose 213 mg/dL (70-100) H 02/15/19 06:25 Calcium 9.0 mg/dL (8.5-10.1) 02/15/19 06:25 Magnesium 1.9 mg/dL (1.8-2.4) 02/15/19 06:25 0.1 mg/dL (0.2-1.0) L 02/14/19 06:45 AST 9 U/L (15-37) L 02/14/19 06:45 ALT 21 U/L (12-78) 02/14/19 06:45 132 U/L (46-116) H 02/14/19 06:45 < 0.05 ng/mL (0.00-0.06) 02/13/19 20:30 NT-Pro-B Natriuret Pep 62 pg/mL (-299) 02/13/19 16:50 6.8 g/dL (6.4-8.2) 02/14/19 06:45 2.5 g/dL (3.4-5.0) L 02/14/19 06:45 < 0.1 ng/mL 02/15/19 06:25 TSH 0.09 uIU/mL (0.36-3.74) L 02/15/19 06:25 Free T4 1.07 ng/dL (0.76-1.46) 02/15/19 06:25
[2019-02-15] MEDS: Roflumilast 500 MCG TAB PO (09:10)
[2019-02-15] MEDS: Omeprazole 20 MG CAPCR 40 MG PO (09:10)
[2019-02-15] MEDS: guaiFENesin 600 MG TABCR PO ×2 (09:10→20:51)
[2019-02-15] MEDS: Aspirin 325 MG TAB PO (09:11)
[2019-02-15] MEDS: Ketoconazole 2% CREAM 15 GM TUBE TP (09:13)
--- NOTE | 2019-02-15 10:43 | CMPROGNOTE_ITS ---
- If Service Date Differs Date of service: 02/15/19 Time of Service: 10:43 Care Management Progress Note S/O: CM met with Dave at the bedside he is agitated at time of visit states he does not want to go home and will not return there. He is angry with his sisters and refused to be around him. He wants to go to a nursing facility however is not agreeable to any local facility. He is willing to be down toward [place], [place]. When CM reviews nursing facilities toward that area he refused and wants other options. He declines to be in [place]. Dave has been waiting for an A[facility] home, and may benefit from assisted living instead. CM will contact community support worker at [facility] Mariana Cordon and identify other options. Dave will enter Sb2 when he is medically ready while placement can be identified. Dave is worried about his tractor and trailer he has a friend Rosmery that can store his equipment her number is [phone]. Dave will benefit from a consult with to determine decision making capacity, provider considering. A:Dave is a 63 year old male admitted with a COPD exacerbation who has a history of TBI, and a long history of alcohol use sober since 2012. P:Dave remains in the ICU he has his own Trilogy at [facility] and continues to use. Plan will be to place Dave in Sb2 for placement thorough his LTM choice for care benefit until placement can be identified.
[2019-02-15] MEDS: dilTIAZem CD 180 MG CAPCR PO (12:19)
--- NOTE | 2019-02-15 15:10 | CHAPLAIN ---
Dave was resting in bed when I visit. At times I had trouble understanding what he was saying. He gradually engaged in a conversation telling me that he believes in the Lord and doesn't think that a person needs to be in synagogue to connect with God. I told him I agreed. He mentioned talking with God while he's been here. I him that talking to God and wanting to connect with God is all good. Dave doesn't think he'll have any family visiting. (He lives with his sister and brother in law.) He told me about his respiratory equipment and how it helps him breathe easier, but he doesn't like wearing the mask.
[2019-02-15 16:23] LABS: T3,Free 3.5 pg/ml (2.8-5.3)
[2019-02-15 16:42] LABS: T3, Total 96 ng/dl (97-169)
[2019-02-15] MEDS: Normal Saline Flush 10 ML SYR IVP (20:51)
[2019-02-15] MEDS: Budesonide/Formoterol 160/4.5 6 GM 60 PUFF INH IH (20:53)
[2019-02-16] VITALS (31 sets, daily range): BP systolic 109–142; BP diastolic 52–79; PULSE 72–119; RESP 2–31; TEMP 36.8; O2SAT 93–100
[2019-02-16] MEDS: Albuterol/Ipratropium 3 ML UPD VIAL UPD ×5 (00:47→19:29)
[2019-02-16] MEDS: methylPREDNISolone SUCC 125 MG VIAL 80 MG IVP (06:37)
[2019-02-16] MEDS: Heparin 5,000 UNITS/ML VIAL 5000 UNITS SC ×3 (06:37→22:17)
[2019-02-16] MEDS: Normal Saline Flush 10 ML SYR IVP (06:37)
[2019-02-16 07:03] LABS: Abs Immature Grans 2.37 k/cumm (0.0-0.09); HCT 36.2 % (40.0-50.0); HGB 10.9 g/dL (13.5-17.5); Mean Corp. HGB Concentration 30.1 g/dL (32.0-36.0); Mean Corpuscular Hemoglobin 26.3 pg (27.0-33.0); Mean Corpuscular Volume 87.4 fL (80-95); Mean Platelet Volume 9.2 fL (8.0-11.0); RBC 4.14 m/cumm (4.50-6.00); RBC Distribution Width 15.4 % (11.8-14.1)
[2019-02-16 07:10] LABS: Anion Gap 4.3 mmol/L (3-11); BUN 21 mg/dL (7-18); CO2 35.7 mmol/L (21.0-32.0); CREATININE 0.59 mg/dL (0.70-1.30); Chloride 100 mmol/L (98-107); Glucose 119 mg/dL (70-100); Potassium 4.1 mmol/L (3.5-5.1); Sodium 140 mmol/L (136-145)
[2019-02-16 07:19] LABS: Iron 79 ug/dL (50-175); Total Iron Binding Capacity 227 ug/dL (250-450); Transferrin Sat 35 % (20-55)
[2019-02-16] MEDS: Budesonide 0.5 MG/2 ML UPD VIAL UPD ×2 (07:33→20:36)
[2019-02-16 07:41] LABS: White Blood Cell Count 36.98 k/cumm (4.4-10.8)
[2019-02-16 07:44] LABS: Absolute Lymphocyte Count 2.59 k/cumm (1.2-3.4); Absolute Monocyte Count 1.48 k/cumm (0.11-0.7); Absolute Neutrophil Count 31.06 k/cumm (1.2-6.7); Diff Comment Manual Differential
[2019-02-16 07:45] LABS: Anisocytosis 1+; Ferritin 268 ng/mL (8-388); Folate 5.1 ng/mL (8.6-20.0); Hypochromasia 1+; Magnesium 1.8 mg/dL (1.8-2.4); Polychromasia Present; Vitamin B12 339 pg/mL (193-986)
[2019-02-16 07:46] LABS: Platelet Count 729 x1000/uL (130-400)
[2019-02-16] MEDS: Budesonide/Formoterol 160/4.5 6 GM 60 PUFF INH IH ×2 (07:55→20:02)
--- NOTE | 2019-02-16 08:05 | PDOC.CMPRO ---
Care Management Progress Note S/O: Dave was lying in bed and using his Trilogy machine. Became very agitated and removed his face mask when sharing information about his brother in law's intent to take over his tractor and trailer. He states he will not return to his sister's house and wants to have his equipment moved to a safe location. Placement options were not discussed again at this time. He remained agitated but did put the face mask back on. Dave has been waiting for an [facility] home, and may benefit from assisted living instead of placement. Message left for Mariana Cordon, [phone], and requested a call back to discuss placement options for discharge. Dave remains worried about his tractor and trailer. Called Rosmery, , and there was no answer and no option to leave a message about storing his equipment. Dave will benefit from a consult with to determine decision making capacity, provider considering. A:Dave is a 63 year old male admitted with a COPD exacerbation who has a history of TBI, and a long history of alcohol use sober since 2012. P:Dave remains in the ICU he has his own Trilogy at [facility] and continues to use. Plan will be to place Dave in Sb2 for placement thorough his LTM Choices for Care benefit until placement can be identified.
--- NOTE | 2019-02-16 08:23 | W.PM.PROGNOT ---
Date of Service Date of service: 02/16/19 Time of Service: 08:23 Assessment and Plan (1) Acute exacerbation of chronic obstructive pulmonary disease (COPD): Current visit: No Status: Acute Improved. CXR today again negative. Sputum color change is of concern - repeating sample. I am not too alarmed at the leucocytosis - the patient does respond disproportionately to steroids. Procalcitonin negative x2 on this admission. Decrease steroids; continue scheduled and prn nebs, daliresp, symbicort, vibrapep, Trilogy HS and prn. Palliative care consulted. (2) Acute on chronic respiratory failure with hypoxia and hypercapnia: Current visit: Yes Status: Acute As above (3) PSVT (paroxysmal supraventricular tachycardia): Current visit: Yes Status: Acute Clinically resolved. While TSH is low, his FT4, FT3, and total T3 levels are within normal - I do not think that the patient is hyperthyroid. No recurrences in the last 24 hours. It is likely ok to d/c tele. (4) Hypertension: Current visit: No Status: Chronic BP's are adequately controlled on current dose of cardizem CD - continue to monitor. (5) Hyperlipidemia: Current visit: No Status: Chronic Not on a statin as outpatient - follow up as outpatient. (6) GERD (gastroesophageal reflux disease): Current visit: No Status: Chronic Continue PPI (7) Low TSH level: Current visit: Yes Status: Acute FT4, FT3, Total T3 nml. Patient is euthyroid. Will need outpatient follow up. (8) Reactive thrombocytosis: Current visit: Yes Status: Acute Improved - no evidence of malignancy, per pathology. Will continue to monitor. I am also checking iron studies given borderline MCV. (9) DVT prophylaxis: Current visit: No Status: Acute Heparin SC (10) Discharge planning issues: Current visit: No Status: Acute Full code Palliative care consult Disposition is a question - ?Swing bed Subjective Interval history since last seen: The patient states his sputum looks win today - different from yesterday. Breathing is unchanged from yesterday. Describes chest tightness. Endorses dizziness when he gets up. Denies n/v. Used to trilogy last night. No fever. Crackles at bases heard by nursing this morning. O2 sats good on 3L. SR - 80-90's. Exam Narrative Exam Narrative: General: anxious male with a speech impediment, A&Ox3, looks better, upset when talking about his step brother. HEENT: EOMI, MMM Heart: RRR, no m/r/g Lungs: I hear better aeration today, no wheezing, no crackles Abdomen: soft, nontender, nondistended Extremities: no e/c/c BLE's Objective Objective Clinical Data: Abnormal lab results 02/15/19 02/15/19 02/15/19 Range/Units 06:25 06:25 06:25 WBC 26.90 H* D (4.4-10.8) k/cumm RBC 4.27 L (4.50-6.00) m/cumm Hgb 11.2 L (13.5-17.5) g/dL Hct 37.7 L (40.0-50.0) % MCH 26.2 L (27.0-33.0) pg MCHC 29.7 L (32.0-36.0) g/dL RDW 15.2 H (11.8-14.1) % Plt Count 851 H* (130-400) x1000/uL Absolute Neutrophils 22.87 H (1.2-6.7) k/cumm Absolute Monocytes 1.08 H (0.11-0.7) k/cumm Carbon Dioxide 37.3 H (21.0-32.0) mmol/L BUN 19 H (7-18) mg/dL Creatinine (0.70-1.30) mg/dL Glucose 213 H (70-100) mg/dL TIBC (250-450) ug/dL Folate (8.6-20.0) ng/mL TSH 0.09 L (0.36-3.74) uIU/mL Total T3 96 L (97-169) ng/dL 02/16/19 02/16/19 02/16/19 Range/Units 06:10 06:10 06:10 WBC (4.4-10.8) k/cumm RBC (4.50-6.00) m/cumm Hgb (13.5-17.5) g/dL Hct (40.0-50.0) % MCH (27.0-33.0) pg MCHC (32.0-36.0) g/dL RDW (11.8-14.1) % Plt Count (130-400) x1000/uL Absolute Neutrophils (1.2-6.7) k/cumm Absolute Monocytes (0.11-0.7) k/cumm Carbon Dioxide 35.7 H (21.0-32.0) mmol/L BUN 21 H (7-18) mg/dL Creatinine 0.59 L (0.70-1.30) mg/dL Glucose 119 H D (70-100) mg/dL TIBC 227 L (250-450) ug/dL Folate 5.1 L (8.6-20.0) ng/mL TSH (0.36-3.74) uIU/mL Total T3 (97-169) ng/dL 02/16/19 Range/Units 06:10 WBC 36.98 H* D (4.4-10.8) k/cumm RBC 4.14 L (4.50-6.00) m/cumm Hgb 10.9 L (13.5-17.5) g/dL Hct 36.2 L (40.0-50.0) % MCH 26.3 L (27.0-33.0) pg MCHC 30.1 L (32.0-36.0) g/dL RDW 15.4 H (11.8-14.1) % Plt Count 729 H (130-400) x1000/uL Absolute Neutrophils 31.06 H (1.2-6.7) k/cumm Absolute Monocytes 1.48 H (0.11-0.7) k/cumm Carbon Dioxide (21.0-32.0) mmol/L BUN (7-18) mg/dL Creatinine (0.70-1.30) mg/dL Glucose (70-100) mg/dL TIBC (250-450) ug/dL Folate (8.6-20.0) ng/mL TSH (0.36-3.74) uIU/mL Total T3 (97-169) ng/dL Vital Signs Temperature 36.7 C 02/15/19 00:00 Temperature Source Temporal Artery Scan 02/15/19 00:00 Pulse 95 H 02/16/19 07:35 Pulse Rhythm Regular 02/16/19 01:25 Pulse 80 02/16/19 04:01 Respiratory Rate 22 02/16/19 07:35 Respiratory Effort 02/16/19 01:25 Respiratory Depth Normal 02/16/19 01:25 Respiratory Pattern Normal 02/16/19 01:25 Blood Pressure 125/71 02/16/19 04:01 Blood Pressure Mean 83 02/16/19 04:01 Blood Pressure Position Sitting 02/13/19 16:43 Pulse Oximetry 95 02/16/19 07:35 Oxygen Delivery Method Nasal Cannula 02/16/19 07:35 Oxygen Flow Rate 3 02/16/19 07:35 Fraction of Inspired Oxygen (FIO2) 30 02/14/19 14:42 Pain Level 0 02/15/19 00:00 Comment 02/14/19 02:00 Intake & Output 02/15/19 02/15/19 02/16/19 11:59 23:59 11:59 Output Total 600 / 950 350 / 950 600 / 600 Balance -600 / -950 -350 / -950 -600 / -600 Weight 74.4 kg 69.7 kg Output: Urine 600 / 950 350 / 950 600 / 600 Other: Urine Color Yellow Yellow Yellow Straw Urine Appearance Clear Clear Clear Urine Odor Strong Normal Normal Stool Occult Blood Negative Stool Size Small Small Stool Characteristics Soft Soft Formed Formed Brown Liquid Brown Voiding Methods Urinal Urinal Urinal Laboratory Results WBC 36.98 k/cumm (4.4-10.8) H* D 02/16/19 06:10 RBC 4.14 m/cumm (4.50-6.00) L 02/16/19 06:10 Hgb 10.9 g/dL (13.5-17.5) L 02/16/19 06:10 Hct 36.2 % (40.0-50.0) L 02/16/19 06:10 MCV 87.4 fL (80-95) 02/16/19 06:10 MCH 26.3 pg (27.0-33.0) L 02/16/19 06:10 MCHC 30.1 g/dL (32.0-36.0) L 02/16/19 06:10 RDW 15.4 % (11.8-14.1) H 02/16/19 06:10 Plt Count 729 x1000/uL (130-400) H 02/16/19 06:10 MPV 9.2 fL (8.0-11.0) 02/16/19 06:10 Immature Gran % See Differential 02/16/19 06:10 80.0 02/16/19 06:10 4.0 % 02/16/19 06:10 7.0 02/16/19 06:10 Atypical Lymphs % 0 02/13/19 16:50 4.0 02/16/19 06:10 0.0 02/16/19 06:10 0.0 02/16/19 06:10 2.0 % 02/16/19 06:10 3.0 % 02/16/19 06:10 Absolute Neutrophils 31.06 k/cumm (1.2-6.7) H 02/16/19 06:10 Absolute Lymphocytes 2.59 k/cumm (1.2-3.4) 02/16/19 06:10 Absolute Monocytes 1.48 k/cumm (0.11-0.7) H 02/16/19 06:10 Absolute Eosinophils 0.00 k/cumm (0.0-0.7) 02/16/19 06:10 Absolute Basophils 0.00 k/cumm (0.0-0.2) 02/16/19 06:10 Manual differential 02/16/19 06:10 RBC Morphology See below 02/16/19 06:10 Present 02/16/19 06:10 1+ 02/16/19 06:10 1+ 02/16/19 06:10 2+ 02/13/19 16:50 PT 9.6 sec (9.3-11.0) 02/13/19 16:50 INR 1.0 (0.9-1.1) 02/13/19 16:50 APTT 25.0 sec (21.0-31.4) 02/13/19 16:50 Sample Site Right radial 02/13/19 17:01 pCO2 81 mmHg (34-47) H* 02/13/19 17:01 pO2 71 mmHg (83-108) L 02/13/19 17:01 O2 Saturation 93 % (94-98) L 02/13/19 17:01 ABG pH 7.32 (7.35-7.45) L 02/13/19 17:01 ABG HCO3 41 mmol/L (22-28) H 02/13/19 17:01 ABG Total CO2 38 mmol/L (22-29) H 02/13/19 17:01 ABG Base Excess 14.7 mmol/L (-3-3) H 02/13/19 17:01 Oxygen Liter Flow Bipap 10/5 L 02/13/19 17:01 40% % 02/13/19 17:01 Sodium 140 mmol/L (136-145) 02/16/19 06:10 Potassium 4.1 mmol/L (3.5-5.1) 02/16/19 06:10 Chloride 100 mmol/L (98-107) 02/16/19 06:10 Carbon Dioxide 35.7 mmol/L (21.0-32.0) H 02/16/19 06:10 4.3 mmol/L (3-11) 02/16/19 06:10 BUN 21 mg/dL (7-18) H 02/16/19 06:10 0.59 mg/dL (0.70-1.30) L 02/16/19 06:10 >= 60.00 (mL/min/1.73m2) 02/16/19 06:10 Glucose 119 mg/dL (70-100) H D 02/16/19 06:10 Calcium 9.0 mg/dL (8.5-10.1) 02/16/19 06:10 Magnesium 1.8 mg/dL (1.8-2.4) 02/16/19 06:10 Iron 79 ug/dL (50-175) 02/16/19 06:10 TIBC 227 ug/dL (250-450) L 02/16/19 06:10 Transferrin % Sat 35 % (20-55) 02/16/19 06:10 268 ng/mL (8-388) 02/16/19 06:10 0.1 mg/dL (0.2-1.0) L 02/14/19 06:45 AST 9 U/L (15-37) L 02/14/19 06:45 ALT 21 U/L (12-78) 02/14/19 06:45 132 U/L (46-116) H 02/14/19 06:45 < 0.05 ng/mL (0.00-0.06) 02/13/19 20:30 NT-Pro-B Natriuret Pep 62 pg/mL (-299) 02/13/19 16:50 6.8 g/dL (6.4-8.2) 02/14/19 06:45 2.5 g/dL (3.4-5.0) L 02/14/19 06:45 Vitamin B12 339 pg/mL (193-986) 02/16/19 06:10 5.1 ng/mL (8.6-20.0) L 02/16/19 06:10 < 0.1 ng/mL 02/15/19 06:25 TSH 0.09 uIU/mL (0.36-3.74) L 02/15/19 06:25 Free T4 1.07 ng/dL (0.76-1.46) 02/15/19 06:25 Free T3 pg/mL 3.5 pg/mL (2.8-5.3) 02/15/19 06:25 Total T3 96 ng/dL (97-169) L 02/15/19 06:25 Pathology Consult Spec 02/15/19 06:25
[2019-02-16] MEDS: Ketoconazole 2% CREAM 15 GM TUBE TP (08:30)
[2019-02-16] MEDS: Roflumilast 500 MCG TAB PO (09:24)
[2019-02-16] MEDS: guaiFENesin 600 MG TABCR PO ×2 (09:24→20:02)
[2019-02-16] MEDS: Omeprazole 20 MG CAPCR 40 MG PO (09:24)
[2019-02-16] MEDS: dilTIAZem CD 180 MG CAPCR PO (09:24)
[2019-02-16] MEDS: Aspirin 325 MG TAB PO (09:24)
[2019-02-16] MEDS: Cyanocobalamin 500 MCG TAB 1000 MCG PO (09:25)
[2019-02-16] MEDS: Folic Acid 1 MG TAB PO (09:25)
--- NOTE | 2019-02-16 09:40 | DI.RAD_ITS ---
SYMPTOM/DIAGNOSIS: CONCERN FOR PNA PA AND LATERAL CHEST: 02/16 The heart is not enlarged. There are changes of COPD. No focal consolidation seen. No pleural effusion seen. CONCLUSION: No evidence of acute change. No change from 01/18/2019.
[2019-02-16 13:12] LABS: Thyroglobulin Antibody <15 U/mL (<61); Thyroperoxidase Antibody <28 U/mL (<61)
[2019-02-16] MEDS: methylPREDNISolone SUCC 125 MG VIAL 60 MG IVP ×2 (16:08→22:17)
[2019-02-17] VITALS (18 sets, daily range): BP systolic 119–152; BP diastolic 68–85; PULSE 79–99; RESP 2–23; TEMP 36.5–37; O2SAT 88–99
[2019-02-17] MEDS: Normal Saline Flush 10 ML SYR IVP ×2 (06:16→17:57)
[2019-02-17] MEDS: Albuterol/Ipratropium 3 ML UPD VIAL UPD ×5 (06:16→21:14)
[2019-02-17] MEDS: Heparin 5,000 UNITS/ML VIAL 5000 UNITS SC ×3 (06:16→21:14)
[2019-02-17] MEDS: methylPREDNISolone SUCC 125 MG VIAL 60 MG IVP (06:16)
[2019-02-17 06:51] LABS: Abs Immature Grans 2.32 k/cumm (0.0-0.09); HCT 35.4 % (40.0-50.0); HGB 10.8 g/dL (13.5-17.5); Mean Corp. HGB Concentration 30.5 g/dL (32.0-36.0); Mean Corpuscular Hemoglobin 26.4 pg (27.0-33.0); Mean Corpuscular Volume 86.6 fL (80-95); Mean Platelet Volume 8.7 fL (8.0-11.0); RBC 4.09 m/cumm (4.50-6.00); RBC Distribution Width 15.5 % (11.8-14.1)
[2019-02-17 07:02] LABS: Anion Gap 2.8 mmol/L (3-11); BUN 25 mg/dL (7-18); CO2 37.2 mmol/L (21.0-32.0); CREATININE 0.62 mg/dL (0.70-1.30); Calcium 8.7 mg/dL (8.5-10.1); Chloride 102 mmol/L (98-107); Glucose 135 mg/dL (70-100); Magnesium 1.7 mg/dL (1.8-2.4); Potassium 4.1 mmol/L (3.5-5.1); Sodium 142 mmol/L (136-145)
[2019-02-17 07:24] LABS: Absolute Lymphocyte Count 2.51 k/cumm (1.2-3.4); Absolute Neutrophil Count 29.79 k/cumm (1.2-6.7); White Blood Cell Count 35.89 k/cumm (4.4-10.8)
[2019-02-17 07:25] LABS: Absolute Monocyte Count 1.08 k/cumm (0.11-0.7); Diff Comment Manual Differential; Hypochromasia 1+; Poikilocytes 1+; Polychromasia Present
[2019-02-17 07:26] LABS: Platelet Count 654 x1000/uL (130-400)
[2019-02-17] MEDS: Budesonide 0.5 MG/2 ML UPD VIAL UPD ×2 (07:57→21:14)
[2019-02-17] MEDS: Budesonide/Formoterol 160/4.5 6 GM 60 PUFF INH IH ×2 (08:05→21:15)
[2019-02-17] MEDS: Roflumilast 500 MCG TAB PO (08:45)
[2019-02-17] MEDS: Aspirin 325 MG TAB PO (08:45)
[2019-02-17] MEDS: dilTIAZem CD 180 MG CAPCR PO (08:45)
[2019-02-17] MEDS: guaiFENesin 600 MG TABCR PO ×2 (08:45→21:14)
[2019-02-17] MEDS: Omeprazole 20 MG CAPCR 40 MG PO (08:46)
[2019-02-17] MEDS: Cyanocobalamin 500 MCG TAB 1000 MCG PO (08:46)
[2019-02-17] MEDS: Folic Acid 1 MG TAB PO (08:46)
--- NOTE | 2019-02-17 08:58 | CMPROGNOTE_ITS ---
Care Management Progress Note S/O: Dave continues to be treated acutely. Plan remains for transition to B2 when medically ready per MD. Mariana Cordon, [phone], and requested a call back to discuss placement options for discharge. Contacts: Mariana Cordon, [phone] [place], A: Dave is a 63 year old male admitted to [facility] 02/13/19 with a COPD exacerbation who has a history of TBI, and a long history of alcohol use: sober since 2012. P: Dave remains in the ICU he is utilizing his own Trilogy machine while inpatient. Plan will be to place Dave in SWB2 for placement through his [facility] [employer] benefit until placement can be identified.
[2019-02-17] MEDS: Ketoconazole 2% CREAM 15 GM TUBE TP (09:26)
--- NOTE | 2019-02-17 09:50 | W.PM.PROGNOT ---
Date of Service Date of service: 02/17/19 Time of Service: 09:50 Assessment and Plan (1) Acute on chronic respiratory failure with hypoxia and hypercapnia: Current visit: Yes Status: Acute due to copd exacerbation, now improved and on baseline 02 (2) Reactive thrombocytosis: Current visit: Yes Status: Acute plt count is slightly dowtrending from yesterday (3) Acute exacerbation of chronic obstructive pulmonary disease (COPD): Current visit: No Status: Acute patient now back on baseline o2 requirements and symptoms improved. will d/c IV methyprednisolone and start PO steroids (4) Leukocytosis: Current visit: Yes Status: Acute likely due to steroids, WBC count slightly dowtrended from yesterday Subjective Patient reports: no new complaints Interval history since last seen: Byron overnight. Patient now on his baseline O2. breathing is improved. No complaints this morning Exam Narrative Exam Narrative: GEN: NAD, sitting up in chair HEENT: NCAT CV: RRR, nl s1 and s2 LUNGS: normal work of breathing, no acessory muscle use, faint expiratory wheeze ABD: soft, NT, ND EXT: symmetrical, no edema SKIN: WWP Objective Objective Clinical Data: Abnormal lab results 02/17/19 02/17/19 Range/Units 06:15 06:15 WBC 35.89 H* (4.4-10.8) k/cumm RBC 4.09 L (4.50-6.00) m/cumm Hgb 10.8 L (13.5-17.5) g/dL Hct 35.4 L (40.0-50.0) % MCH 26.4 L (27.0-33.0) pg MCHC 30.5 L (32.0-36.0) g/dL RDW 15.5 H (11.8-14.1) % Plt Count 654 H (130-400) x1000/uL Absolute Neutrophils 29.79 H (1.2-6.7) k/cumm Absolute Monocytes 1.08 H (0.11-0.7) k/cumm Carbon Dioxide 37.2 H (21.0-32.0) mmol/L Anion Gap 2.8 L (3-11) mmol/L BUN 25 H (7-18) mg/dL Creatinine 0.62 L (0.70-1.30) mg/dL Glucose 135 H (70-100) mg/dL Magnesium 1.7 L (1.8-2.4) mg/dL Vital Signs Temperature 37.0 C 02/17/19 09:04 Temperature Source Temporal Artery Scan 02/17/19 09:04 Pulse 97 H 02/17/19 08:06 Pulse Rhythm Regular 02/17/19 09:04 Pulse 96 H 02/16/19 20:02 Respiratory Rate 22 02/17/19 08:06 Respiratory Effort Short of Breath 02/17/19 09:04 Respiratory Depth Shallow 02/17/19 09:04 Respiratory Pattern Normal 02/17/19 09:04 Blood Pressure 152/83 H 02/17/19 08:00 Blood Pressure Mean 98 02/17/19 08:00 Blood Pressure Position Sitting 02/13/19 16:43 Pulse Oximetry 93 L 02/17/19 09:04 Oxygen Delivery Method Nasal Cannula 02/17/19 09:04 Oxygen Flow Rate 3 02/17/19 09:04 Fraction of Inspired Oxygen (FIO2) 30 02/14/19 14:42 Pain Level 0 02/17/19 09:04 Comment 02/17/19 09:04 Intake & Output 02/16/19 02/16/19 02/17/19 11:59 23:59 11:59 Intake Total 360 / 1080 720 / 1080 440 / 440 Output Total 600 / 940 340 / 940 450 / 450 Balance -240 / 140 380 / 140 -10 / -10 Weight 69.7 kg 68 kg Intake: Oral 360 / 1080 720 / 1080 440 / 440 Output: Urine 600 / 940 340 / 940 450 / 450 Other: Urine Color Yellow Yellow Yellow Urine Appearance Clear Clear Clear Urine Odor Normal None Normal Stool Occult Blood Negative Stool Size Moderate Large Moderate Stool Characteristics Soft Soft Soft Brown Formed Brown Voiding Methods Urinal Urinal Laboratory Results WBC 35.89 k/cumm (4.4-10.8) H* 02/17/19 06:15 RBC 4.09 m/cumm (4.50-6.00) L 02/17/19 06:15 Hgb 10.8 g/dL (13.5-17.5) L 02/17/19 06:15 Hct 35.4 % (40.0-50.0) L 02/17/19 06:15 MCV 86.6 fL (80-95) 02/17/19 06:15 MCH 26.4 pg (27.0-33.0) L 02/17/19 06:15 MCHC 30.5 g/dL (32.0-36.0) L 02/17/19 06:15 RDW 15.5 % (11.8-14.1) H 02/17/19 06:15 Plt Count 654 x1000/uL (130-400) H 02/17/19 06:15 MPV 8.7 fL (8.0-11.0) 02/17/19 06:15 Immature Gran % See Differential 02/17/19 06:15 80.0 02/17/19 06:15 3.0 % 02/17/19 06:15 7.0 02/17/19 06:15 Atypical Lymphs % 0 02/13/19 16:50 3.0 02/17/19 06:15 0.0 02/17/19 06:15 0.0 02/17/19 06:15 6.0 % 02/17/19 06:15 1.0 % 02/17/19 06:15 Absolute Neutrophils 29.79 k/cumm (1.2-6.7) H 02/17/19 06:15 Absolute Lymphocytes 2.51 k/cumm (1.2-3.4) 02/17/19 06:15 Absolute Monocytes 1.08 k/cumm (0.11-0.7) H 02/17/19 06:15 Absolute Eosinophils 0.00 k/cumm (0.0-0.7) 02/17/19 06:15 Absolute Basophils 0.00 k/cumm (0.0-0.2) 02/17/19 06:15 Manual differential 02/17/19 06:15 RBC Morphology See below 02/17/19 06:15 Present 02/17/19 06:15 1+ 02/17/19 06:15 1+ 02/17/19 06:15 1+ 02/16/19 06:10 2+ 02/13/19 16:50 PT 9.6 sec (9.3-11.0) 02/13/19 16:50 INR 1.0 (0.9-1.1) 02/13/19 16:50 APTT 25.0 sec (21.0-31.4) 02/13/19 16:50 Sample Site Right radial 02/13/19 17:01 pCO2 81 mmHg (34-47) H* 02/13/19 17:01 pO2 71 mmHg (83-108) L 02/13/19 17:01 O2 Saturation 93 % (94-98) L 02/13/19 17:01 ABG pH 7.32 (7.35-7.45) L 02/13/19 17:01 ABG HCO3 41 mmol/L (22-28) H 02/13/19 17:01 ABG Total CO2 38 mmol/L (22-29) H 02/13/19 17:01 ABG Base Excess 14.7 mmol/L (-3-3) H 02/13/19 17:01 Oxygen Liter Flow Bipap 10/5 L 02/13/19 17:01 40% % 02/13/19 17:01 Sodium 142 mmol/L (136-145) 02/17/19 06:15 Potassium 4.1 mmol/L (3.5-5.1) 02/17/19 06:15 Chloride 102 mmol/L (98-107) 02/17/19 06:15 Carbon Dioxide 37.2 mmol/L (21.0-32.0) H 02/17/19 06:15 2.8 mmol/L (3-11) L 02/17/19 06:15 BUN 25 mg/dL (7-18) H 02/17/19 06:15 0.62 mg/dL (0.70-1.30) L 02/17/19 06:15 >= 60.00 (mL/min/1.73m2) 02/17/19 06:15 Glucose 135 mg/dL (70-100) H 02/17/19 06:15 Calcium 8.7 mg/dL (8.5-10.1) 02/17/19 06:15 Magnesium 1.7 mg/dL (1.8-2.4) L 02/17/19 06:15 Iron 79 ug/dL (50-175) 02/16/19 06:10 TIBC 227 ug/dL (250-450) L 02/16/19 06:10 Transferrin % Sat 35 % (20-55) 02/16/19 06:10 268 ng/mL (8-388) 02/16/19 06:10 0.1 mg/dL (0.2-1.0) L 02/14/19 06:45 AST 9 U/L (15-37) L 02/14/19 06:45 ALT 21 U/L (12-78) 02/14/19 06:45 132 U/L (46-116) H 02/14/19 06:45 < 0.05 ng/mL (0.00-0.06) 02/13/19 20:30 NT-Pro-B Natriuret Pep 62 pg/mL (-299) 02/13/19 16:50 6.8 g/dL (6.4-8.2) 02/14/19 06:45 2.5 g/dL (3.4-5.0) L 02/14/19 06:45 Vitamin B12 339 pg/mL (193-986) 02/16/19 06:10 5.1 ng/mL (8.6-20.0) L 02/16/19 06:10 < 0.1 ng/mL 02/15/19 06:25 TSH 0.09 uIU/mL (0.36-3.74) L 02/15/19 06:25 Free T4 1.07 ng/dL (0.76-1.46) 02/15/19 06:25 Free T3 pg/mL 3.5 pg/mL (2.8-5.3) 02/15/19 06:25 Total T3 96 ng/dL (97-169) L 02/15/19 06:25 Thyroperoxidase Ab <28 U/mL (<61) 02/15/19 06:25 Thyroglobulin Antibody <15 U/mL (<61) 02/15/19 06:25 Pathology Consult Spec 02/15/19 06:25
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
--- NOTE | 2019-02-17 11:27 | NUR.NOTE ---
pt transferred from ICU to med/surg room 218. VVS, Pt A&Ox3. oriented pt to room and plan of care. Will continue to monitor. Nursing Note:
[2019-02-18] VITALS (14 sets, daily range): BP systolic 112–163; BP diastolic 62–86; PULSE 77–107; RESP 5–27; TEMP 36.3–36.7; O2SAT 93–97
[2019-02-18] MEDS: Albuterol/Ipratropium 3 ML UPD VIAL UPD ×6 (03:35→20:00)
[2019-02-18] MEDS: Heparin 5,000 UNITS/ML VIAL 5000 UNITS SC ×2 (05:45→13:35)
[2019-02-18] MEDS: Budesonide/Formoterol 160/4.5 6 GM 60 PUFF INH IH ×2 (08:02→20:00)
[2019-02-18] MEDS: Budesonide 0.5 MG/2 ML UPD VIAL UPD ×2 (08:06→20:00)
[2019-02-18] MEDS: Folic Acid 1 MG TAB PO (08:37)
[2019-02-18] MEDS: dilTIAZem CD 180 MG CAPCR PO (08:38)
[2019-02-18] MEDS: predniSONE 20 MG TAB 60 MG PO ×2 (08:38→19:59)
[2019-02-18] MEDS: guaiFENesin 600 MG TABCR PO ×2 (08:39→19:59)
[2019-02-18] MEDS: Cyanocobalamin 500 MCG TAB 1000 MCG PO (08:39)
[2019-02-18] MEDS: Omeprazole 20 MG CAPCR 40 MG PO (08:40)
[2019-02-18] MEDS: Roflumilast 500 MCG TAB PO (08:40)
[2019-02-18] MEDS: Aspirin 325 MG TAB PO (08:40)
[2019-02-18] MEDS: Normal Saline Flush 10 ML SYR IVP (08:41)
[2019-02-18] MEDS: Ketoconazole 2% CREAM 15 GM TUBE TP (08:44)
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
[2019-02-18 10:37] LABS: HCT 36.6 % (40.0-50.0); HGB 11.1 g/dL (13.5-17.5); Mean Corp. HGB Concentration 30.3 g/dL (32.0-36.0); Mean Corpuscular Hemoglobin 26.3 pg (27.0-33.0); Mean Corpuscular Volume 86.7 fL (80-95); Mean Platelet Volume 8.5 fL (8.0-11.0); Platelet Count 565 x1000/uL (130-400); RBC 4.22 m/cumm (4.50-6.00); RBC Distribution Width 15.9 % (11.8-14.1)
[2019-02-18 10:44] LABS: Anion Gap 5.2 mmol/L (3-11); BUN 29 mg/dL (7-18); CO2 35.8 mmol/L (21.0-32.0); CREATININE 0.66 mg/dL (0.70-1.30); Calcium 8.7 mg/dL (8.5-10.1); Chloride 102 mmol/L (98-107); Glucose 159 mg/dL (70-100); Magnesium 1.6 mg/dL (1.8-2.4); Potassium 3.6 mmol/L (3.5-5.1); Sodium 143 mmol/L (136-145)
[2019-02-18 10:45] LABS: White Blood Cell Count 37.62 k/cumm (4.4-10.8)
[2019-02-18 11:10] LABS: Absolute Lymphocyte Count 2.26 k/cumm (1.2-3.4); Absolute Monocyte Count 4.14 k/cumm (0.11-0.7); Absolute Neutrophil Count 30.47 k/cumm (1.2-6.7); Anisocytosis 1+
[2019-02-18 11:11] LABS: Basophilic Stippling Present; Diff Comment Manual Differential; Hypochromasia 2+; Poikilocytes 1+; Polychromasia Present
--- NOTE | 2019-02-18 17:44 | CMPROGNOTE_ITS ---
Care Management Progress Note S/O: Dave continues to be treated acutely. Plan remains for transition to [facility] when medically gcmud-zp-DCF pending bed availablability. Dave engaged well during Psychiatric Consult with Dr. Knox today; refer to her note for further information. CM continues to follow. Contacts: Mariana Nietors, [phone] [id number] Rosmery, A: Dave is a 63 year old male admitted to [facility] 02/13/19 with a COPD exacerbation who has a history of TBI, and a long history of alcohol use: sober since 2012. P: aDve is now on MED/SURG floor, he remains on his own Trilogy machine while inpatient. Referrals faxed to [facility] and [facility] for review. Dave has [facility] for longterm placement after short term rehab.
--- NOTE | 2019-02-18 17:44 | PDOC.CMPRO ---
Care Management Progress Note S/O: Dave continues to be treated acutely. Plan remains for transition to [facility] when medically [id number] pending bed availablability. Dave engaged well during Psychiatric Consult with Dr. Knox today; refer to her note for further information. CM continues to follow. Contacts: Mariana Nietors, [phone] [id number] Rosmery, A: Dave is a 63 year old male admitted to [facility] 02/13/19 with a COPD exacerbation who has a history of TBI, and a long history of alcohol use: sober since 2012. P: Dave is now on MED/SURG floor, he remains on his own Trilogy machine while inpatient. Referrals faxed to [facility] and [facility] for review. Dave has [facility] for alf placement after short term rehab.
--- NOTE | 2019-02-18 17:46 | W.PM.PROGNOT ---
Date of Service Date of service: 02/18/19 Time of Service: 17:46 Assessment and Plan (1) Acute exacerbation of chronic obstructive pulmonary disease (COPD): Current visit: No Status: Acute I think that he is worse today. Obtain repeat sputum sample. Given h/o pseudomonas and description of sputum, I will start zosyn. Increase steroids. Continue scheduled and prn nebs, daliresp, symbicort, vibrapep, Trilogy HS and prn. Palliative care on board - remains full code. We spoke about the generally poor condition of his lungs today. (2) Acute on chronic respiratory failure with hypoxia and hypercapnia: Current visit: Yes Status: Acute As above (3) PSVT (paroxysmal supraventricular tachycardia): Current visit: Yes Status: Resolved In setting of acute respiratory illness. Clinically resolved. While TSH is low, his FT4, FT3, and total T3 levels are within normal. No clinical hyperthyroidism. Off tele. (4) Hypertension: Current visit: No Status: Chronic BP's are adequately controlled on current dose of cardizem CD - continue to monitor. (5) Hyperlipidemia: Current visit: No Status: Chronic Not on a statin as outpatient - follow up as outpatient. (6) GERD (gastroesophageal reflux disease): Current visit: No Status: Chronic Continue PPI (7) Low TSH level: Current visit: Yes Status: Acute FT4, FT3, Total T3 nml. Patient is euthyroid. Will need outpatient follow up. (8) Reactive thrombocytosis: Current visit: Yes Status: Acute Improved - no evidence of malignancy, per pathology. Recheck in am. (9) DVT prophylaxis: Current visit: No Status: Acute Heparin SC (10) Discharge planning issues: Current visit: No Status: Acute Full code Palliative care consulted Disposition is a question - ?Swing bed once medically ready Subjective Interval history since last seen: Mr Alston states he does not feel good. He is asking me why. He states yesterday his sputum was win, but today it's yellow. Denies dizziness, chest pain, nausea, vomiting. He is not short of breath when talking to me, he states, but any activity gets him very short of breath. Exam Narrative Exam Narrative: General: anxious male with a speech impediment, A&Ox3, sounds like he has gurgling secretions in his lungs when he is talking HEENT: EOMI, MMM Heart: RRR, no m/r/g Lungs: Diminished breath sounds B, but I do hear sounds of liquid secretions Abdomen: soft, nontender, nondistended Extremities: no e/c/c BLE's Objective Objective Clinical Data: Abnormal lab results 02/18/19 02/18/19 Range/Units 10:30 10:30 WBC 37.62 H* (4.4-10.8) k/cumm RBC 4.22 L (4.50-6.00) m/cumm Hgb 11.1 L (13.5-17.5) g/dL Hct 36.6 L (40.0-50.0) % MCH 26.3 L (27.0-33.0) pg MCHC 30.3 L (32.0-36.0) g/dL RDW 15.9 H (11.8-14.1) % Plt Count 565 H (130-400) x1000/uL Absolute Neutrophils 30.47 H (1.2-6.7) k/cumm Absolute Monocytes 4.14 H (0.11-0.7) k/cumm Carbon Dioxide 35.8 H (21.0-32.0) mmol/L BUN 29 H (7-18) mg/dL Creatinine 0.66 L (0.70-1.30) mg/dL Glucose 159 H (70-100) mg/dL Magnesium 1.6 L (1.8-2.4) mg/dL Vital Signs Temperature 36.3 C L 02/18/19 15:33 Temperature Source Tympanic 02/18/19 15:33 Pulse 93 H 02/18/19 15:33 Pulse Rhythm Regular 02/18/19 07:35 Pulse 96 H 02/16/19 20:02 Respiratory Rate 20 02/18/19 15:33 Respiratory Effort Non-Labored 02/18/19 07:35 Respiratory Depth Shallow 02/18/19 07:35 Respiratory Pattern Hyperpnea 02/18/19 07:35 Blood Pressure 133/85 02/18/19 15:33 Blood Pressure Mean 93 02/17/19 09:36 Blood Pressure Position Sitting 02/13/19 16:43 Pulse Oximetry 95 02/18/19 15:33 Oxygen Delivery Method Nasal Cannula 02/18/19 15:33 Oxygen Flow Rate 4 02/18/19 15:33 Fraction of Inspired Oxygen (FIO2) 30 02/14/19 14:42 Pain Level 0 02/18/19 15:33 Comment 02/18/19 15:19 Intake & Output 02/17/19 02/18/19 02/18/19 23:59 11:59 23:59 Intake Total 240 / 680 10 / 250 240 / 250 Output Total 100 / 550 600 / 1000 400 / 1000 Balance 140 / 130 -590 / -750 -160 / -750 Weight 68.7 kg Intake: IV 10 Oral 240 / 680 240 / 240 Output: Urine 100 / 550 600 / 1000 400 / 1000 Other: Urine Color Pale Pale Yellow Yellow Urine Appearance Clear Clear Urine Odor None None Stool Size Moderate Stool Characteristics Soft Brown Voiding Methods Urinal Urinal Laboratory Results WBC 37.62 k/cumm (4.4-10.8) H* 02/18/19 10:30 RBC 4.22 m/cumm (4.50-6.00) L 02/18/19 10:30 Hgb 11.1 g/dL (13.5-17.5) L 02/18/19 10:30 Hct 36.6 % (40.0-50.0) L 02/18/19 10:30 MCV 86.7 fL (80-95) 02/18/19 10:30 MCH 26.3 pg (27.0-33.0) L 02/18/19 10:30 MCHC 30.3 g/dL (32.0-36.0) L 02/18/19 10:30 RDW 15.9 % (11.8-14.1) H 02/18/19 10:30 Plt Count 565 x1000/uL (130-400) H 02/18/19 10:30 MPV 8.5 fL (8.0-11.0) 02/18/19 10:30 Immature Gran % See Differential 02/18/19 10:30 70.0 02/18/19 10:30 11.0 % 02/18/19 10:30 6.0 02/18/19 10:30 Atypical Lymphs % 0 02/13/19 16:50 11.0 02/18/19 10:30 0.0 02/18/19 10:30 0.0 02/18/19 10:30 2.0 % 02/18/19 10:30 1.0 % 02/17/19 06:15 Absolute Neutrophils 30.47 k/cumm (1.2-6.7) H 02/18/19 10:30 Absolute Lymphocytes 2.26 k/cumm (1.2-3.4) 02/18/19 10:30 Absolute Monocytes 4.14 k/cumm (0.11-0.7) H 02/18/19 10:30 Absolute Eosinophils 0.00 k/cumm (0.0-0.7) 02/18/19 10:30 Absolute Basophils 0.00 k/cumm (0.0-0.2) 02/18/19 10:30 Manual differential 02/18/19 10:30 RBC Morphology See below 02/18/19 10:30 Present 02/18/19 10:30 2+ 02/18/19 10:30 1+ 02/18/19 10:30 Present 02/18/19 10:30 1+ 02/18/19 10:30 2+ 02/13/19 16:50 PT 9.6 sec (9.3-11.0) 02/13/19 16:50 INR 1.0 (0.9-1.1) 02/13/19 16:50 APTT 25.0 sec (21.0-31.4) 02/13/19 16:50 Sample Site Right radial 02/13/19 17:01 pCO2 81 mmHg (34-47) H* 02/13/19 17:01 pO2 71 mmHg (83-108) L 02/13/19 17:01 O2 Saturation 93 % (94-98) L 02/13/19 17:01 ABG pH 7.32 (7.35-7.45) L 02/13/19 17:01 ABG HCO3 41 mmol/L (22-28) H 02/13/19 17:01 ABG Total CO2 38 mmol/L (22-29) H 02/13/19 17:01 ABG Base Excess 14.7 mmol/L (-3-3) H 02/13/19 17:01 Oxygen Liter Flow Bipap 10/5 L 02/13/19 17:01 40% % 02/13/19 17:01 Sodium 143 mmol/L (136-145) 02/18/19 10:30 Potassium 3.6 mmol/L (3.5-5.1) 02/18/19 10:30 Chloride 102 mmol/L (98-107) 02/18/19 10:30 Carbon Dioxide 35.8 mmol/L (21.0-32.0) H 02/18/19 10:30 5.2 mmol/L (3-11) 02/18/19 10:30 BUN 29 mg/dL (7-18) H 02/18/19 10:30 0.66 mg/dL (0.70-1.30) L 02/18/19 10:30 >= 60.00 (mL/min/1.73m2) 02/18/19 10:30 Glucose 159 mg/dL (70-100) H 02/18/19 10:30 Calcium 8.7 mg/dL (8.5-10.1) 02/18/19 10:30 Magnesium 1.6 mg/dL (1.8-2.4) L 02/18/19 10:30 Iron 79 ug/dL (50-175) 02/16/19 06:10 TIBC 227 ug/dL (250-450) L 02/16/19 06:10 Transferrin % Sat 35 % (20-55) 02/16/19 06:10 268 ng/mL (8-388) 02/16/19 06:10 0.1 mg/dL (0.2-1.0) L 02/14/19 06:45 AST 9 U/L (15-37) L 02/14/19 06:45 ALT 21 U/L (12-78) 02/14/19 06:45 132 U/L (46-116) H 02/14/19 06:45 < 0.05 ng/mL (0.00-0.06) 02/13/19 20:30 NT-Pro-B Natriuret Pep 62 pg/mL (-299) 02/13/19 16:50 6.8 g/dL (6.4-8.2) 02/14/19 06:45 2.5 g/dL (3.4-5.0) L 02/14/19 06:45 Vitamin B12 339 pg/mL (193-986) 02/16/19 06:10 5.1 ng/mL (8.6-20.0) L 02/16/19 06:10 < 0.1 ng/mL 02/15/19 06:25 TSH 0.09 uIU/mL (0.36-3.74) L 02/15/19 06:25 Free T4 1.07 ng/dL (0.76-1.46) 02/15/19 06:25 Free T3 pg/mL 3.5 pg/mL (2.8-5.3) 02/15/19 06:25 Total T3 96 ng/dL (97-169) L 02/15/19 06:25 Thyroperoxidase Ab <28 U/mL (<61) 02/15/19 06:25 Thyroglobulin Antibody <15 U/mL (<61) 02/15/19 06:25 Pathology Consult Spec 02/15/19 06:25
[2019-02-18] MEDS: PIPERACILLIN/TAZO 3.375 GM in Normal Saline 50 ML IVPB (18:26)
[2019-02-18] MEDS: Normal Saline 500 ML 50 ML IVPB (18:27)
--- NOTE | 2019-02-18 18:50 | NUR.NOTE ---
Nursing Note: patient s wbc greatly elevated, new order for pip christa was started, a sputum sample was gathered, patients ls are tight, he still describes his sob as his baseline, will monitor labs and effect of tx.
[2019-02-19] VITALS (15 sets, daily range): BP systolic 124–162; BP diastolic 64–86; PULSE 85–105; RESP 2–24; TEMP 35.6–36.3; O2SAT 95–98
[2019-02-19] MEDS: Albuterol/Ipratropium 3 ML UPD VIAL UPD ×7 (00:23→23:54)
[2019-02-19] MEDS: PIPERACILLIN/TAZO 3.375 GM in Normal Saline 50 ML IVPB ×5 (00:23→23:54)
[2019-02-19] MEDS: Normal Saline Flush 10 ML SYR IVP ×4 (00:24→23:54)
[2019-02-19] MEDS: Heparin 5,000 UNITS/ML VIAL 5000 UNITS SC ×4 (00:41→22:21)
[2019-02-19] MEDS: Folic Acid 1 MG TAB PO (08:34)
[2019-02-19] MEDS: Roflumilast 500 MCG TAB PO (08:34)
[2019-02-19] MEDS: Cyanocobalamin 500 MCG TAB 1000 MCG PO (08:34)
[2019-02-19] MEDS: Omeprazole 20 MG CAPCR 40 MG PO (08:35)
[2019-02-19] MEDS: dilTIAZem CD 180 MG CAPCR PO (08:35)
[2019-02-19] MEDS: predniSONE 20 MG TAB 60 MG PO ×2 (08:36→19:39)
[2019-02-19] MEDS: Aspirin 325 MG TAB PO (08:36)
[2019-02-19] MEDS: guaiFENesin 600 MG TABCR PO ×2 (08:36→19:39)
[2019-02-19] MEDS: Ketoconazole 2% CREAM 15 GM TUBE TP (08:38)
[2019-02-19 08:41] LABS: Anion Gap 4.7 mmol/L (3-11); BUN 24 mg/dL (7-18); CO2 36.3 mmol/L (21.0-32.0); CREATININE 0.64 mg/dL (0.70-1.30); Calcium 8.9 mg/dL (8.5-10.1); Chloride 101 mmol/L (98-107); Glucose 143 mg/dL (70-100); Magnesium 1.8 mg/dL (1.8-2.4); Sodium 142 mmol/L (136-145)
[2019-02-19] MEDS: Budesonide 0.5 MG/2 ML UPD VIAL UPD ×2 (09:49→19:39)
[2019-02-19] MEDS: Budesonide/Formoterol 160/4.5 6 GM 60 PUFF INH IH ×2 (09:56→19:39)
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
--- NOTE | 2019-02-19 12:23 | W.PM.PROGNOT ---
Date of Service Date of service: 02/19/19 Time of Service: 12:23 Assessment and Plan (1) Acute exacerbation of chronic obstructive pulmonary disease (COPD): Current visit: No Status: Acute Slow to improve, but I do think he is improving. Keep steroids at current dose and continue zosyn. He is again growing pseudomonas in his sputum, and it is sensitive to zosyn - whether this is colonization at this point is hard to tell, but given his reports of not feeling well, we have to treat it. Respiratory therapy is looking into new tubing/mask for his trilogy. Continue scheduled and prn nebs, daliresp, symbicort, vibrapep, Trilogy HS and prn. Palliative care on board - remains full code. (2) Acute on chronic respiratory failure with hypoxia and hypercapnia: Current visit: Yes Status: Acute As above (3) PSVT (paroxysmal supraventricular tachycardia): Current visit: Yes Status: Resolved In setting of acute respiratory illness. Clinically resolved. While TSH is low, his FT4, FT3, and total T3 levels are within normal. No clinical hyperthyroidism. Off tele. (4) Hypertension: Current visit: No Status: Chronic BP's are adequately controlled on current dose of cardizem CD - continue to monitor. (5) Hyperlipidemia: Current visit: No Status: Chronic Not on a statin as outpatient - follow up as outpatient. (6) GERD (gastroesophageal reflux disease): Current visit: No Status: Chronic Continue PPI (7) Low TSH level: Current visit: Yes Status: Acute FT4, FT3, Total T3 nml. Patient is euthyroid. Will need outpatient follow up. (8) Reactive thrombocytosis: Current visit: Yes Status: Acute Improved - no evidence of malignancy, per pathology. Recheck in am. (9) DVT prophylaxis: Current visit: No Status: Acute Heparin SC (10) Discharge planning issues: Current visit: No Status: Acute Full code Can make his disposition decisions, but the discussions need to be had in simple and concrete terms. Palliative care consulted Disposition is a question - ?Swing bed once medically ready Subjective Interval history since last seen: Mr Alston states he is not sure if he feels any better today. Maybe he is, he states. He is still coughing up yellow sputum, he says, but I watched him cough up clear sputum. Denies dizziness, chest pain, nausea, vomiting. Exam Narrative Exam Narrative: General: anxious male with a speech impediment, A&Ox3, seen while eating lunch - he is more tachypneic than yesterday. HEENT: EOMI, MMM Heart: RRR, no m/r/g Lungs: Aeration is improved from yesterday, but still sounds diminished. Abdomen: soft, nontender, nondistended Extremities: no e/c/c BLE's Objective Objective Clinical Data: Abnormal lab results 02/19/19 Range/Units 08:10 Carbon Dioxide 36.3 H (21.0-32.0) mmol/L BUN 24 H (7-18) mg/dL Creatinine 0.64 L (0.70-1.30) mg/dL Glucose 143 H (70-100) mg/dL Vital Signs Temperature 36 C L 02/19/19 11:20 Temperature Source Tympanic 02/19/19 11:20 Pulse 103 H 02/19/19 12:12 Pulse Rhythm Regular 02/18/19 20:45 Pulse 96 H 02/16/19 20:02 Respiratory Rate 20 02/19/19 12:12 Respiratory Effort 02/18/19 20:45 Respiratory Depth Shallow 02/18/19 20:45 Respiratory Pattern Hyperpnea 02/18/19 20:45 Blood Pressure 124/81 02/19/19 11:20 Blood Pressure Mean 93 02/17/19 09:36 Blood Pressure Position Sitting 02/13/19 16:43 Pulse Oximetry 96 02/19/19 12:12 Oxygen Delivery Method Nasal Cannula 02/19/19 12:02 Oxygen Flow Rate 5 02/19/19 12:02 Fraction of Inspired Oxygen (FIO2) 30 02/14/19 14:42 Pain Level 0 02/19/19 11:20 Comment 02/18/19 15:19 Intake & Output 02/18/19 02/19/19 02/19/19 23:59 11:59 23:59 Intake Total 847.5 / 857.5 100 / 100 Output Total 1300 / 1900 400 / 400 Balance -452.5 / -1042.5 -300 / -300 Weight 68.4 kg Intake: IV 127.5 / 137.5 100 / 100 Oral 720 / 720 Output: Urine 1300 / 1900 400 / 400 Other: Urine Color Yellow Pale Yellow Urine Appearance Clear Clear Urine Odor Normal Normal Voiding Methods Urinal Urinal Laboratory Results WBC 37.62 k/cumm (4.4-10.8) H* 02/18/19 10:30 RBC 4.22 m/cumm (4.50-6.00) L 02/18/19 10:30 Hgb 11.1 g/dL (13.5-17.5) L 02/18/19 10:30 Hct 36.6 % (40.0-50.0) L 02/18/19 10:30 MCV 86.7 fL (80-95) 02/18/19 10:30 MCH 26.3 pg (27.0-33.0) L 02/18/19 10:30 MCHC 30.3 g/dL (32.0-36.0) L 02/18/19 10:30 RDW 15.9 % (11.8-14.1) H 02/18/19 10:30 Plt Count 565 x1000/uL (130-400) H 02/18/19 10:30 MPV 8.5 fL (8.0-11.0) 02/18/19 10:30 Immature Gran % See Differential 02/18/19 10:30 70.0 02/18/19 10:30 11.0 % 02/18/19 10:30 6.0 02/18/19 10:30 Atypical Lymphs % 0 02/13/19 16:50 11.0 02/18/19 10:30 0.0 02/18/19 10:30 0.0 02/18/19 10:30 2.0 % 02/18/19 10:30 1.0 % 02/17/19 06:15 Absolute Neutrophils 30.47 k/cumm (1.2-6.7) H 02/18/19 10:30 Absolute Lymphocytes 2.26 k/cumm (1.2-3.4) 02/18/19 10:30 Absolute Monocytes 4.14 k/cumm (0.11-0.7) H 02/18/19 10:30 Absolute Eosinophils 0.00 k/cumm (0.0-0.7) 02/18/19 10:30 Absolute Basophils 0.00 k/cumm (0.0-0.2) 02/18/19 10:30 Manual differential 02/18/19 10:30 RBC Morphology See below 02/18/19 10:30 Present 02/18/19 10:30 2+ 02/18/19 10:30 1+ 02/18/19 10:30 Present 02/18/19 10:30 1+ 02/18/19 10:30 2+ 02/13/19 16:50 PT 9.6 sec (9.3-11.0) 02/13/19 16:50 INR 1.0 (0.9-1.1) 02/13/19 16:50 APTT 25.0 sec (21.0-31.4) 02/13/19 16:50 Sample Site Right radial 02/13/19 17:01 pCO2 81 mmHg (34-47) H* 02/13/19 17:01 pO2 71 mmHg (83-108) L 02/13/19 17:01 O2 Saturation 93 % (94-98) L 02/13/19 17:01 ABG pH 7.32 (7.35-7.45) L 02/13/19 17:01 ABG HCO3 41 mmol/L (22-28) H 02/13/19 17:01 ABG Total CO2 38 mmol/L (22-29) H 02/13/19 17:01 ABG Base Excess 14.7 mmol/L (-3-3) H 02/13/19 17:01 Oxygen Liter Flow Bipap 10/5 L 02/13/19 17:01 40% % 02/13/19 17:01 Sodium 142 mmol/L (136-145) 02/19/19 08:10 Potassium 4.0 mmol/L (3.5-5.1) 02/19/19 08:10 Chloride 101 mmol/L (98-107) 02/19/19 08:10 Carbon Dioxide 36.3 mmol/L (21.0-32.0) H 02/19/19 08:10 4.7 mmol/L (3-11) 02/19/19 08:10 BUN 24 mg/dL (7-18) H 02/19/19 08:10 0.64 mg/dL (0.70-1.30) L 02/19/19 08:10 >= 60.00 (mL/min/1.73m2) 02/19/19 08:10 Glucose 143 mg/dL (70-100) H 02/19/19 08:10 Calcium 8.9 mg/dL (8.5-10.1) 02/19/19 08:10 Magnesium 1.8 mg/dL (1.8-2.4) 02/19/19 08:10 Iron 79 ug/dL (50-175) 02/16/19 06:10 TIBC 227 ug/dL (250-450) L 02/16/19 06:10 Transferrin % Sat 35 % (20-55) 02/16/19 06:10 268 ng/mL (8-388) 02/16/19 06:10 0.1 mg/dL (0.2-1.0) L 02/14/19 06:45 AST 9 U/L (15-37) L 02/14/19 06:45 ALT 21 U/L (12-78) 02/14/19 06:45 132 U/L (46-116) H 02/14/19 06:45 < 0.05 ng/mL (0.00-0.06) 02/13/19 20:30 NT-Pro-B Natriuret Pep 62 pg/mL (-299) 02/13/19 16:50 6.8 g/dL (6.4-8.2) 02/14/19 06:45 2.5 g/dL (3.4-5.0) L 02/14/19 06:45 Vitamin B12 339 pg/mL (193-986) 02/16/19 06:10 5.1 ng/mL (8.6-20.0) L 02/16/19 06:10 < 0.1 ng/mL 02/15/19 06:25 TSH 0.09 uIU/mL (0.36-3.74) L 02/15/19 06:25 Free T4 1.07 ng/dL (0.76-1.46) 02/15/19 06:25 Free T3 pg/mL 3.5 pg/mL (2.8-5.3) 02/15/19 06:25 Total T3 96 ng/dL (97-169) L 02/15/19 06:25 Thyroperoxidase Ab <28 U/mL (<61) 02/15/19 06:25 Thyroglobulin Antibody <15 U/mL (<61) 02/15/19 06:25 Pathology Consult Spec 02/15/19 06:25
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
--- NOTE | 2019-02-19 16:55 | CMPROGNOTE_ITS ---
Care Management Progress Note S/O: Dave continues to be treated acutely and per MD was started on ABX due to WBC. Dave remains agreeable to SNF placement when medically ready per MD. Anticipate he will have the choice between [facility] and the [facility] for discharge Friday if ready per MD. CM continues to follow. Contacts: Mariana Cordon, [phone] X1Cole Botello, A: Dave is a 63 year old male admitted to [facility] 02/13/19 with a COPD exacerbation who has a history of TBI, and a long history of alcohol use: sober since 2012. P: Dave is now on MED/SURG floor, he remains on his own Trilogy machine while inpatient and [facility]by [facility] reports [facility] will be bringing new accessories as well. Referrals faxed to [facility] and [facility] for review; bed offer rec'd from [facility] for Friday. [facility] requested LTM confirmation which was unavailable as today is a State holiday-anticipating official bed offer Friday morning; 02/22/19. Kimberly Guerray's CM at [facility] confirmed Dave does have LTM coverage. Plan for S/T rehab at SNF prior to transitioning to LTC under his LTM benefit. Anticipate Dave will transport via [facility] private frzvqke-fu-Y/C Van (if he chooses [facility])
[2019-02-19] MEDS: Normal Saline 500 ML 50 ML IVPB (18:16)
[2019-02-20] VITALS (17 sets, daily range): BP systolic 132–171; BP diastolic 64–99; PULSE 51–101; RESP 2–22; TEMP 35.9–37.3; O2SAT 95–97
[2019-02-20] MEDS: Albuterol/Ipratropium 3 ML UPD VIAL UPD ×5 (04:21→19:33)
[2019-02-20] MEDS: Heparin 5,000 UNITS/ML VIAL 5000 UNITS SC ×3 (06:02→22:10)
[2019-02-20] MEDS: PIPERACILLIN/TAZO 3.375 GM in Normal Saline 50 ML IVPB (06:02)
[2019-02-20] MEDS: Normal Saline 500 ML 50 ML IVPB (06:02)
[2019-02-20 06:50] LABS: Abs Immature Grans 3.64 k/cumm (0.0-0.09); HCT 37.3 % (40.0-50.0); HGB 11.3 g/dL (13.5-17.5); Mean Corp. HGB Concentration 30.3 g/dL (32.0-36.0); Mean Corpuscular Hemoglobin 26.3 pg (27.0-33.0); Mean Corpuscular Volume 86.9 fL (80-95); Platelet Count 487 x1000/uL (130-400); RBC 4.29 m/cumm (4.50-6.00); RBC Distribution Width 16.2 % (11.8-14.1)
[2019-02-20 07:02] LABS: Anion Gap 3.3 mmol/L (3-11); BUN 18 mg/dL (7-18); CO2 34.7 mmol/L (21.0-32.0); CREATININE 0.52 mg/dL (0.70-1.30); Calcium 8.7 mg/dL (8.5-10.1); Chloride 101 mmol/L (98-107); Glucose 147 mg/dL (70-100); Magnesium 1.7 mg/dL (1.8-2.4); Potassium 4.3 mmol/L (3.5-5.1); Sodium 139 mmol/L (136-145)
[2019-02-20 07:14] LABS: White Blood Cell Count 34.73 k/cumm (4.4-10.8)
[2019-02-20] MEDS: Roflumilast 500 MCG TAB PO (07:26)
[2019-02-20] MEDS: Omeprazole 20 MG CAPCR 40 MG PO (07:26)
[2019-02-20 07:27] LABS: Absolute Lymphocyte Count 2.43 k/cumm (1.2-3.4); Absolute Monocyte Count 1.04 k/cumm (0.11-0.7); Absolute Neutrophil Count 29.52 k/cumm (1.2-6.7); Anisocytosis 1+; Diff Comment Manual Differential; Hypochromasia 1+
[2019-02-20] MEDS: Aspirin 325 MG TAB PO (07:27)
[2019-02-20] MEDS: Folic Acid 1 MG TAB PO (07:27)
[2019-02-20] MEDS: guaiFENesin 600 MG TABCR PO ×2 (07:27→19:33)
[2019-02-20] MEDS: predniSONE 20 MG TAB 60 MG PO ×2 (07:27→19:33)
[2019-02-20] MEDS: dilTIAZem CD 180 MG CAPCR PO (07:27)
[2019-02-20] MEDS: Cyanocobalamin 500 MCG TAB 1000 MCG PO (07:27)
[2019-02-20] MEDS: Budesonide 0.5 MG/2 ML UPD VIAL UPD ×2 (07:56→19:33)
[2019-02-20] MEDS: Budesonide/Formoterol 160/4.5 6 GM 60 PUFF INH IH ×2 (08:02→19:33)
[2019-02-20] MEDS: Ketoconazole 2% CREAM 15 GM TUBE TP (08:35)
[2019-02-20] MEDS: levoFLOXacin 500 MG, levoFLOXacin 250 MG 750 MG PO (09:24)
--- NOTE | 2019-02-20 09:49 | PT.INTREAT ---
Date of service: 02/20/19 Time of Service: 09:49 PT Notes 02/20/19 SUBJECTIVE: Dave stating his stomach is sore from getting shots in his abdomen. He notes he can walk well and his oxygen numbers look okay but it feels terrible inside his chest despite good oxygen readings. OBJECTIVE: Supine in bed. Agreeable to PT. Nursing present and patient needs to change rooms. Pt in agreement to walk to his new room. TRANSFERS Supine to sit: I Sit to supine: I Sit to stand: I Stand to sit: I GAIT Device: FWW Weight bearing: Full Assist: SBA Distance: 75' Deviation: 6 L NC VITALS: At rest on 3 L NC: 97%, 114 b/m. Post ambulation on 6 L NC 94%, 138 b/m. Post 2 minutes rest on 3 L NC 96%, 124 b/m ASSESSMENT: No LOB during gait. Pt utilized FWW for longer walk today to conserve some of his energy. He does not need to utilize the walker for shorter distance bouts of ambulation. PLAN: Continue to progress gait distance and educate on energy conservation. Direct time: 15 minutes [id number] Michaelle Tinajero PTA Clinic location: [facility] [place], [place]
--- NOTE | 2019-02-20 13:55 | CMPROGNOTE_ITS ---
Care Management Progress Note S/O: Dave continues to be treated acutely with antibiotics. Dave remains agreeable to SNF placement when medically ready per MD. Bed [facility] received for Friday [facility]. Dave will need to choose one. Contacts: Mariana Cordon, [phone] [id number] Ros[place], A: Dave is a 63 year old male admitted to [facility] 02/13/19 with a COPD exacerbation who has a history of TBI, and a long history of alcohol use: sober since 2012. P: Dave is now on MED/SURG floor, he remains on his own Trilogy machine while inpatient and [facility]by [facility] reports [facility] will be bringing new accessories as well. Martha Cordon Dave's CM at [facility] confirmed Dave does have LTM coverage. Plan for S/T rehab at SNF prior to transitioning to LTC under his LTM benefit. Anticipate Dave will transport via [facility] private npfyuvb-fx-Z/C Van (if he chooses [facility])
--- NOTE | 2019-02-20 13:55 | PDOC.CMPRO ---
Care Management Progress Note S/O: Dave continues to be treated acutely with antibiotics. Dave remains agreeable to SNF placement when medically ready per MD. Bed offers received for Friday [facility]. Dave will need to choose one. Contacts: Mariana Cordon, [phone] [id number] Rosmery, A: Dave is a 63 year old male [facility] with a COPD exacerbation who has a history of TBI, and a long history of alcohol use: sober since 2012. P: Dave is now on MED/SURG floor, he remains on his own Trilogy machine while inpatient and [facility] reports [facility] will be bringing new accessories as well. Martha Cordon Dave's CM at [facility] confirmed Dave does have LTM coverage. Plan for S/T rehab at SNF prior to transitioning to LTC under his LTM benefit. Anticipate Dave will transport via [facility] private gibmkog-pn-L/C [facility] (if he chooses [facility])
--- NOTE | 2019-02-20 13:59 | PDOC.CMDIS ---
Care Management Discharge Reason for Hospitalization: COPD Exacerbation, Pumonary fibrosis, Afib with RVR
--- NOTE | 2019-02-20 15:59 | W.PM.PROGNOT ---
Date of Service Date of service: 02/20/19 Time of Service: 15:59 Assessment and Plan (1) Acute on chronic respiratory failure with hypoxia and hypercapnia: Current visit: Yes Status: Acute Patient appears to have chronic Hypercapneic and Hypoxic Respiratory Failure, as witnessed by prior ABG and chronic O2 need. His PFTs obtained in January show significant dysfunction, with an FEV1 of 0.54 and FEV1/FVC of 32. He has multiple ED visits and admissions. Current exacerbation appears improved but not yet at baseline. Continue Pulmicort, Daliresp, standing Duoneb with prn albuterol, and current dose of steroids (on oral prednisone). Also on Pip-Robbin for 2 days for growth of pseudomonas in sputum, without evidence of pneumonia by imaging. Will change to oral Levofloxacin, continue above therapy, and monitor symptoms closely. Mr. Alston was also started on NIV therapy last hospitalization. (2) Hypertension: Current visit: No Status: Chronic Continue Diltiazem. Current pressures mildly elevated to reasonable in setting of steroid use. Continue to monitor. (3) GERD (gastroesophageal reflux disease): Current visit: No Status: Chronic On PPI therapy. (4) Low TSH level: Current visit: Yes Status: Acute Low TSH with a normal FT3 and T4 - possible sick euthyroid, checked in setting of acute illness. Monitor as outpatient. (5) DVT prophylaxis: Current visit: No Status: Acute Heparin SC. (6) Advance directive on file: Current visit: No Status: Acute Full Code. Subjective Interval history since last seen: 63 year old man with a prior history of Oxygen dependent COPD, admitted from [facility] Emergency Department with a diagnosis of acute COPD Exacerbation. Mr. Alston has a past Medical History significant for severe COPD, with chronic hypoxic respiratory failure on a reported 5L of O2 at home. He also has a history of CAD with prior RI, TIA, and Cerebellar Hemorrhage with resultant speech impediment. The patient previously received his medical care in [facility], but was admitted here last month, at which time he was treated for a COPD exacerbation in the setting of likely Pneumonia, with Pseudomonas on Sputum cultures - now presents to the ED with complaints of worsening dyspnea with sputum production. Initial CXR was negative for infection. The patient was admitted for treatment of likely acute exacerbation of his underlying COPD. Following admission the patient failed to progress well despite optimal treatment, and appeared to be growing Pseudomonas again in his sputum with repeat negative CXR. He was initiated on Antibiotic therapy with Pip-Robbin, and reports improvement overall in his symptoms. This morning Mr. Alston reports overall improvement. His WBC continues to be elevated and appears to be steroid dependent. He remains afebrile. No overnight events reports. Exam Narrative Exam Narrative: General: Patient appears chronically tachypneic, AAOX3, NAD. Reported chronic impaired speech noted. Neck: Supple CV: Regular, nontachycardic, S1S2, No rubs, murmurs, or gallops. Pulmonary: Significantly diminished breath sounds. No wheezing or rhonchi by exam today. Abdomen: + Bowel Sounds, soft, nontender, nondistended Vascular: No lower extremity edema Psych: Normal mood and affect. Objective Objective Clinical Data: Abnormal lab results 02/20/19 02/20/19 Range/Units 06:20 06:20 WBC 34.73 H* (4.4-10.8) k/cumm RBC 4.29 L (4.50-6.00) m/cumm Hgb 11.3 L (13.5-17.5) g/dL Hct 37.3 L (40.0-50.0) % MCH 26.3 L (27.0-33.0) pg MCHC 30.3 L (32.0-36.0) g/dL RDW 16.2 H (11.8-14.1) % Plt Count 487 H (130-400) x1000/uL Absolute Neutrophils 29.52 H (1.2-6.7) k/cumm Absolute Monocytes 1.04 H (0.11-0.7) k/cumm Carbon Dioxide 34.7 H (21.0-32.0) mmol/L Creatinine 0.52 L (0.70-1.30) mg/dL Glucose 147 H (70-100) mg/dL Magnesium 1.7 L (1.8-2.4) mg/dL Vital Signs Temperature 37.0 C 02/20/19 15:26 Temperature Source Tympanic 02/20/19 15:26 Pulse 98 H 02/20/19 15:26 Pulse Rhythm Regular 02/19/19 21:52 Pulse 96 H 02/16/19 20:02 Respiratory Rate 22 02/20/19 15:26 Respiratory Effort Labored 02/20/19 07:19 Respiratory Depth Shallow 02/20/19 07:19 Respiratory Pattern Tachypnea 02/20/19 07:19 Blood Pressure 148/64 H 02/20/19 15:26 Blood Pressure Mean 93 02/17/19 09:36 Blood Pressure Position Sitting 02/13/19 16:43 Pulse Oximetry 97 02/20/19 15:26 Oxygen Delivery Method Nasal Cannula 02/20/19 15:26 Oxygen Flow Rate 3 02/20/19 15:26 Fraction of Inspired Oxygen (FIO2) 30 02/14/19 14:42 Pain Level 2 02/20/19 11:20 Comment 02/18/19 15:19 Intake & Output 02/19/19 02/20/19 02/20/19 23:59 11:59 23:59 Intake Total 760 / 1230 1623.333 / 1863.333 240 / 1863.333 Output Total 300 / 700 750 / 1100 350 / 1100 Balance 460 / 530 873.333 / 763.333 -110 / 763.333 Weight 68.8 kg Intake: IV 100 / 210 743.333 / 743.333 Oral 660 / 1020 880 / 1120 240 / 1120 Output: Urine 300 / 700 750 / 1100 350 / 1100 Other: Urine Color Yellow Yellow Yellow Urine Appearance Clear Clear Clear Urine Odor None Normal Normal Comment void x2 Stool Size Moderate Stool Characteristics Formed Brown Voiding Methods Urinal Urinal Urinal Laboratory Results WBC 34.73 k/cumm (4.4-10.8) H* 02/20/19 06:20 RBC 4.29 m/cumm (4.50-6.00) L 02/20/19 06:20 Hgb 11.3 g/dL (13.5-17.5) L 02/20/19 06:20 Hct 37.3 % (40.0-50.0) L 02/20/19 06:20 MCV 86.9 fL (80-95) 02/20/19 06:20 MCH 26.3 pg (27.0-33.0) L 02/20/19 06:20 MCHC 30.3 g/dL (32.0-36.0) L 02/20/19 06:20 RDW 16.2 % (11.8-14.1) H 02/20/19 06:20 Plt Count 487 x1000/uL (130-400) H 02/20/19 06:20 MPV 9.0 fL (8.0-11.0) 02/20/19 06:20 Immature Gran % See Differential 02/20/19 06:20 84.0 02/20/19 06:20 1.0 % 02/20/19 06:20 7.0 02/20/19 06:20 Atypical Lymphs % 0 02/13/19 16:50 3.0 02/20/19 06:20 0.0 02/20/19 06:20 0.0 02/20/19 06:20 2.0 % 02/20/19 06:20 3.0 % 02/20/19 06:20 Absolute Neutrophils 29.52 k/cumm (1.2-6.7) H 02/20/19 06:20 Absolute Lymphocytes 2.43 k/cumm (1.2-3.4) 02/20/19 06:20 Absolute Monocytes 1.04 k/cumm (0.11-0.7) H 02/20/19 06:20 Absolute Eosinophils 0.00 k/cumm (0.0-0.7) 02/20/19 06:20 Absolute Basophils 0.00 k/cumm (0.0-0.2) 02/20/19 06:20 Manual differential 02/20/19 06:20 RBC Morphology See below 02/20/19 06:20 Present 02/18/19 10:30 1+ 02/20/19 06:20 1+ 02/18/19 10:30 Present 02/18/19 10:30 1+ 02/20/19 06:20 2+ 02/13/19 16:50 PT 9.6 sec (9.3-11.0) 02/13/19 16:50 INR 1.0 (0.9-1.1) 02/13/19 16:50 APTT 25.0 sec (21.0-31.4) 02/13/19 16:50 Sample Site Right radial 02/13/19 17:01 pCO2 81 mmHg (34-47) H* 02/13/19 17:01 pO2 71 mmHg (83-108) L 02/13/19 17:01 O2 Saturation 93 % (94-98) L 02/13/19 17:01 ABG pH 7.32 (7.35-7.45) L 02/13/19 17:01 ABG HCO3 41 mmol/L (22-28) H 02/13/19 17:01 ABG Total CO2 38 mmol/L (22-29) H 02/13/19 17:01 ABG Base Excess 14.7 mmol/L (-3-3) H 02/13/19 17:01 Oxygen Liter Flow Bipap 10/5 L 02/13/19 17:01 40% % 02/13/19 17:01 Sodium 139 mmol/L (136-145) 02/20/19 06:20 Potassium 4.3 mmol/L (3.5-5.1) 02/20/19 06:20 Chloride 101 mmol/L (98-107) 02/20/19 06:20 Carbon Dioxide 34.7 mmol/L (21.0-32.0) H 02/20/19 06:20 3.3 mmol/L (3-11) 02/20/19 06:20 BUN 18 mg/dL (7-18) D 02/20/19 06:20 0.52 mg/dL (0.70-1.30) L 02/20/19 06:20 >= 60.00 (mL/min/1.73m2) 02/20/19 06:20 Glucose 147 mg/dL (70-100) H 02/20/19 06:20 Calcium 8.7 mg/dL (8.5-10.1) 02/20/19 06:20 Magnesium 1.7 mg/dL (1.8-2.4) L 02/20/19 06:20 Iron 79 ug/dL (50-175) 02/16/19 06:10 TIBC 227 ug/dL (250-450) L 02/16/19 06:10 Transferrin % Sat 35 % (20-55) 02/16/19 06:10 268 ng/mL (8-388) 02/16/19 06:10 0.1 mg/dL (0.2-1.0) L 02/14/19 06:45 AST 9 U/L (15-37) L 02/14/19 06:45 ALT 21 U/L (12-78) 02/14/19 06:45 132 U/L (46-116) H 02/14/19 06:45 < 0.05 ng/mL (0.00-0.06) 02/13/19 20:30 NT-Pro-B Natriuret Pep 62 pg/mL (-299) 02/13/19 16:50 6.8 g/dL (6.4-8.2) 02/14/19 06:45 2.5 g/dL (3.4-5.0) L 02/14/19 06:45 Vitamin B12 339 pg/mL (193-986) 02/16/19 06:10 5.1 ng/mL (8.6-20.0) L 02/16/19 06:10 < 0.1 ng/mL 02/15/19 06:25 TSH 0.09 uIU/mL (0.36-3.74) L 02/15/19 06:25 Free T4 1.07 ng/dL (0.76-1.46) 02/15/19 06:25 Free T3 pg/mL 3.5 pg/mL (2.8-5.3) 02/15/19 06:25 Total T3 96 ng/dL (97-169) L 02/15/19 06:25 Thyroperoxidase Ab <28 U/mL (<61) 02/15/19 06:25 Thyroglobulin Antibody <15 U/mL (<61) 02/15/19 06:25 Pathology Consult Spec 02/15/19 06:25
[2019-02-20] MEDS: Normal Saline Flush 10 ML SYR IVP (16:10)
[2019-02-21] VITALS (18 sets, daily range): BP systolic 127–158; BP diastolic 69–86; PULSE 87–99; RESP 1–22; TEMP 36.4–36.9; O2SAT 95–100
[2019-02-21] MEDS: Albuterol/Ipratropium 3 ML UPD VIAL UPD ×7 (00:13→23:43)
[2019-02-21] MEDS: Heparin 5,000 UNITS/ML VIAL 5000 UNITS SC (06:36)
[2019-02-21 07:07] LABS: Abs Immature Grans 3.42 k/cumm (0.0-0.09); Basophils % 0.4; HCT 35.8 % (40.0-50.0); HGB 10.8 g/dL (13.5-17.5); Mean Corp. HGB Concentration 30.2 g/dL (32.0-36.0); Mean Corpuscular Hemoglobin 26.3 pg (27.0-33.0); Mean Corpuscular Volume 87.1 fL (80-95); Mean Platelet Volume 9.3 fL (8.0-11.0); Platelet Count 434 x1000/uL (130-400); RBC 4.11 m/cumm (4.50-6.00); RBC Distribution Width 16.5 % (11.8-14.1)
[2019-02-21 07:16] LABS: Absolute Basophil Count 0.14 k/cumm (0.0-0.2)
[2019-02-21 07:17] LABS: White Blood Cell Count 33.77 k/cumm (4.4-10.8)
[2019-02-21 07:18] LABS: Anion Gap 4.3 mmol/L (3-11); BUN 20 mg/dL (7-18); CO2 33.7 mmol/L (21.0-32.0); CREATININE 0.57 mg/dL (0.70-1.30); Calcium 8.7 mg/dL (8.5-10.1); Chloride 101 mmol/L (98-107); Glucose 141 mg/dL (70-100); Magnesium 1.7 mg/dL (1.8-2.4); Potassium 4.4 mmol/L (3.5-5.1); Sodium 139 mmol/L (136-145)
[2019-02-21] MEDS: guaiFENesin 600 MG TABCR PO ×2 (07:24→20:13)
[2019-02-21] MEDS: Roflumilast 500 MCG TAB PO (07:24)
[2019-02-21] MEDS: Aspirin 325 MG TAB PO (07:24)
[2019-02-21] MEDS: Cyanocobalamin 500 MCG TAB 1000 MCG PO (07:24)
[2019-02-21] MEDS: Omeprazole 20 MG CAPCR 40 MG PO (07:24)
[2019-02-21] MEDS: Folic Acid 1 MG TAB PO (07:24)
[2019-02-21] MEDS: dilTIAZem CD 180 MG CAPCR PO (07:24)
[2019-02-21] MEDS: predniSONE 20 MG TAB 60 MG PO ×2 (07:24→20:12)
[2019-02-21 08:11] LABS: Absolute Lymphocyte Count 1.69 k/cumm (1.2-3.4); Absolute Monocyte Count 1.35 k/cumm (0.11-0.7); Absolute Neutrophil Count 28.37 k/cumm (1.2-6.7); Anisocytosis 1+; Diff Comment Manual Differential; Hypochromasia 1+
[2019-02-21] MEDS: Budesonide 0.5 MG/2 ML UPD VIAL UPD ×2 (08:14→20:13)
[2019-02-21] MEDS: Budesonide/Formoterol 160/4.5 6 GM 60 PUFF INH IH ×2 (08:17→20:17)
[2019-02-21] MEDS: MAGNESIUM SULFATE 1 GM/100 ML BAG IVPB (08:44)
--- NOTE | 2019-02-21 09:16 | PTTR_ITS ---
Date of service: 02/21/19 Time of Service: 09:16 PT Notes 02/21/19 SUBJECTIVE: Dave stating he feels okay right now but after walking his chest will bother him. Continues to complain of abdomen discomfort from getting his shots. OBJECTIVE: Supine in bed. Agreeable to PT. TRANSFERS Supine to sit: I Sit to supine: I Sit to stand: I Stand to sit: I GAIT Device: FWW/no AD Weight bearing: Full Assist: SBA Distance: 120' with FWW, 20' with no AD VITALS: Pre PT on 3 L NC: 96%, 106 b/m. Post ambulation on 6 L NC: 94%, 125 b/m. After two minutes rest: 96%, 89 b/m. ASSESSMENT: Progressing with gait distance without LOB or gait deviations. He continues to utilize walker for energy conservation purposes. PLAN: Continue current POC. Treatment time: 15 minutes [id number] Michaelle Tinajero PTA Clinic location: [facility] [place], [place]
[2019-02-21] MEDS: Ketoconazole 2% CREAM 15 GM TUBE TP (09:47)
[2019-02-21] MEDS: levoFLOXacin 500 MG, levoFLOXacin 250 MG 750 MG PO (09:47)
--- NOTE | 2019-02-21 10:36 | W.PM.PROGNOT ---
Date of Service Date of service: 02/21/19 Time of Service: 10:36 Assessment and Plan (1) Acute on chronic respiratory failure with hypoxia and hypercapnia: Current visit: Yes Status: Acute Patient appears to have chronic Hypercapneic and Hypoxic Respiratory Failure, as witnessed by prior ABG and chronic O2 need. His PFTs obtained in January show significant dysfunction, with an FEV1 of 0.54 and FEV1/FVC of 32. He has multiple ED visits and admissions. Current exacerbation appears improved and nearing baseline. Continue Pulmicort, Daliresp, standing Duoneb with prn albuterol, and current dose of steroids (on oral prednisone), with plans for a slow taper. Also on Pip-Robbin for 2 days for growth of pseudomonas in sputum, without evidence of pneumonia by imaging, changed to oral Levofloxacin for total antibiotic duration of 4 days currently. Continue above therapy, and monitor symptoms closely. Mr. Alston was also started on NIV therapy last hospitalization. (2) Hypertension: Current visit: No Status: Chronic Continue Diltiazem. Current pressures mildly elevated to reasonable in setting of steroid use. Continue to monitor. (3) GERD (gastroesophageal reflux disease): Current visit: No Status: Chronic On PPI therapy. (4) Low TSH level: Current visit: Yes Status: Acute Low TSH with a normal FT3 and T4 - possible sick euthyroid, checked in setting of acute illness. Monitor as outpatient. (5) DVT prophylaxis: Current visit: No Status: Acute Continue SCDs and TEDs - hold off chemical prophylaxis given history of intracranial bleed. (6) Advance directive on file: Current visit: No Status: Acute Full Code. Subjective Patient reports: denies other Interval history since last seen: 63 year old man with a prior history of Oxygen dependent COPD, admitted from [facility] Emergency Department with a diagnosis of acute COPD Exacerbation. Mr. 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 He also has a history of CAD with prior [place], TIA, and Cerebellar Hemorrhage with resultant speech impediment. The patient previously received his medical care in [facility], but was admitted here last month, at which time he was treated for a COPD exacerbation in the setting of likely Pneumonia, with Pseudomonas on Sputum cultures - now presents to the ED with complaints of worsening dyspnea with sputum production. Initial CXR was negative for infection. The patient was admitted for treatment of likely acute exacerbation of his underlying COPD. Following admission he failed to progress well despite optimal treatment, and appeared to be growing Pseudomonas again in his sputum with repeat negative CXR. He was initiated on Antibiotic therapy with Pip-Robbin, and reports improvement overall in his symptoms. This morning Mr. Alston reports significant overall improvement, and is reportedly nearing baseline. His WBC continues to be elevated and appears to be steroid dependent. He remains afebrile. No overnight events reports. Exam Narrative Exam Narrative: General: Patient appears chronically tachypneic, AAOX3, NAD. Impaired speech again noted. Neck: Supple CV: Regular, nontachycardic, S1S2, No rubs, murmurs, or gallops. Pulmonary: Significantly diminished breath sounds. No wheezing or rhonchi by exam today. Abdomen: + Bowel Sounds, soft, nontender, nondistended Vascular: No lower extremity edema Psych: Normal mood and affect. Objective Objective Clinical Data: Abnormal lab results 02/21/19 02/21/19 Range/Units 06:30 06:30 WBC 33.77 H* (4.4-10.8) k/cumm RBC 4.11 L (4.50-6.00) m/cumm Hgb 10.8 L (13.5-17.5) g/dL Hct 35.8 L (40.0-50.0) % MCH 26.3 L (27.0-33.0) pg MCHC 30.2 L (32.0-36.0) g/dL RDW 16.5 H (11.8-14.1) % Plt Count 434 H (130-400) x1000/uL Absolute Neutrophils 28.37 H (1.2-6.7) k/cumm Absolute Monocytes 1.35 H (0.11-0.7) k/cumm Carbon Dioxide 33.7 H (21.0-32.0) mmol/L BUN 20 H (7-18) mg/dL Creatinine 0.57 L (0.70-1.30) mg/dL Glucose 141 H (70-100) mg/dL Magnesium 1.7 L (1.8-2.4) mg/dL Vital Signs Temperature 36.4 C L 02/21/19 07:47 Temperature Source Tympanic 02/21/19 07:47 Pulse 87 02/21/19 08:10 Pulse Rhythm Regular 02/21/19 08:56 Pulse 96 H 02/16/19 20:02 Respiratory Rate 22 02/21/19 08:10 Respiratory Effort Labored 02/21/19 08:56 Respiratory Depth Shallow 02/21/19 08:56 Respiratory Pattern Tachypnea 02/21/19 08:56 Blood Pressure 158/86 H 02/21/19 07:47 Blood Pressure Mean 93 02/17/19 09:36 Blood Pressure Position Sitting 02/13/19 16:43 Pulse Oximetry 96 02/21/19 10:28 Oxygen Delivery Method Nasal Cannula 02/21/19 10:28 Oxygen Flow Rate 3 02/21/19 10:28 Fraction of Inspired Oxygen (FIO2) 30 02/14/19 14:42 Pain Level 0 02/21/19 03:37 Comment 02/21/19 07:47 Intake & Output 02/20/19 02/20/19 02/21/19 11:59 23:59 11:59 Intake Total 1623.333 / 2353.333 730 / 2353.333 110 / 110 Output Total 750 / 1100 350 / 1100 400 / 400 Balance 873.333 / 1253.333 380 / 1253.333 -290 / -290 Weight 68.8 kg 68.8 kg Intake: IV 743.333 / 753.333 10 / 753.333 10 / 10 Oral 880 / 1600 720 / 1600 100 / 100 Output: Urine 750 / 1100 350 / 1100 400 / 400 Other: Urine Color Yellow Yellow Yellow Urine Appearance Clear Clear Clear Urine Odor Normal Normal Normal Comment void x2 Voids x2 in urinal. Stool Size Moderate Moderate Stool Characteristics Formed Formed Brown Voiding Methods Urinal Urinal Urinal Laboratory Results WBC 33.77 k/cumm (4.4-10.8) H* 02/21/19 06:30 RBC 4.11 m/cumm (4.50-6.00) L 02/21/19 06:30 Hgb 10.8 g/dL (13.5-17.5) L 02/21/19 06:30 Hct 35.8 % (40.0-50.0) L 02/21/19 06:30 MCV 87.1 fL (80-95) 02/21/19 06:30 MCH 26.3 pg (27.0-33.0) L 02/21/19 06:30 MCHC 30.2 g/dL (32.0-36.0) L 02/21/19 06:30 RDW 16.5 % (11.8-14.1) H 02/21/19 06:30 Plt Count 434 x1000/uL (130-400) H 02/21/19 06:30 MPV 9.3 fL (8.0-11.0) 02/21/19 06:30 Immature Gran % See Differential 02/21/19 06:30 82.0 02/21/19 06:30 2.0 % 02/21/19 06:30 5.0 02/21/19 06:30 Atypical Lymphs % 0 02/13/19 16:50 4.0 02/21/19 06:30 0.0 02/21/19 06:30 0.4 02/21/19 06:30 4.0 % 02/21/19 06:30 3.0 % 02/21/19 06:30 Absolute Neutrophils 28.37 k/cumm (1.2-6.7) H 02/21/19 06:30 Absolute Lymphocytes 1.69 k/cumm (1.2-3.4) 02/21/19 06:30 Absolute Monocytes 1.35 k/cumm (0.11-0.7) H 02/21/19 06:30 Absolute Eosinophils 0.00 k/cumm (0.0-0.7) 02/21/19 06:30 Absolute Basophils 0.14 k/cumm (0.0-0.2) 02/21/19 06:30 Manual differential 02/21/19 06:30 RBC Morphology See below 02/21/19 06:30 Present 02/18/19 10:30 1+ 02/21/19 06:30 1+ 02/18/19 10:30 Present 02/18/19 10:30 1+ 02/21/19 06:30 2+ 02/13/19 16:50 PT 9.6 sec (9.3-11.0) 02/13/19 16:50 INR 1.0 (0.9-1.1) 02/13/19 16:50 APTT 25.0 sec (21.0-31.4) 02/13/19 16:50 Sample Site Right radial 02/13/19 17:01 pCO2 81 mmHg (34-47) H* 02/13/19 17:01 pO2 71 mmHg (83-108) L 02/13/19 17:01 O2 Saturation 93 % (94-98) L 02/13/19 17:01 ABG pH 7.32 (7.35-7.45) L 02/13/19 17:01 ABG HCO3 41 mmol/L (22-28) H 02/13/19 17:01 ABG Total CO2 38 mmol/L (22-29) H 02/13/19 17:01 ABG Base Excess 14.7 mmol/L (-3-3) H 02/13/19 17:01 Oxygen Liter Flow Bipap 10/ L 02/13/19 17:01 40% % 02/13/19 17:01 Sodium 139 mmol/L (136-145) 02/21/19 06:30 Potassium 4.4 mmol/L (3.5-5.1) 02/21/19 06:30 Chloride 101 mmol/L (98-107) 02/21/19 06:30 Carbon Dioxide 33.7 mmol/L (21.0-32.0) H 02/21/19 06:30 4.3 mmol/L (3-11) 02/21/19 06:30 BUN 20 mg/dL (7-18) H 02/21/19 06:30 0.57 mg/dL (0.70-1.30) L 02/21/19 06:30 >= 60.00 (mL/min/1.73m2) 02/21/19 06:30 Glucose 141 mg/dL (70-100) H 02/21/19 06:30 Calcium 8.7 mg/dL (8.5-10.1) 02/21/19 06:30 Magnesium 1.7 mg/dL (1.8-2.4) L 02/21/19 06:30 Iron 79 ug/dL (50-175) 02/16/19 06:10 TIBC 227 ug/dL (250-450) L 02/16/19 06:10 Transferrin % Sat 35 % (20-55) 02/16/19 06:10 268 ng/mL (8-388) 02/16/19 06:10 0.1 mg/dL (0.2-1.0) L 02/14/19 06:45 AST 9 U/L (15-37) L 02/14/19 06:45 ALT 21 U/L (12-78) 02/14/19 06:45 132 U/L (46-116) H 02/14/19 06:45 < 0.05 ng/mL (0.00-0.06) 02/13/19 20:30 NT-Pro-B Natriuret Pep 62 pg/mL (-299) 02/13/19 16:50 6.8 g/dL (6.4-8.2) 02/14/19 06:45 2.5 g/dL (3.4-5.0) L 02/14/19 06:45 Vitamin B12 339 pg/mL (193-986) 02/16/19 06:10 5.1 ng/mL (8.6-20.0) L 02/16/19 06:10 < 0.1 ng/mL 02/15/19 06:25 TSH 0.09 uIU/mL (0.36-3.74) L 02/15/19 06:25 Free T4 1.07 ng/dL (0.76-1.46) 02/15/19 06:25 Free T3 pg/mL 3.5 pg/mL (2.8-5.3) 02/15/19 06:25 Total T3 96 ng/dL (97-169) L 02/15/19 06:25 Thyroperoxidase Ab <28 U/mL (<61) 02/15/19 06:25 Thyroglobulin Antibody <15 U/mL (<61) 02/15/19 06:25 Pathology Consult Spec 02/15/19 06:25
--- NOTE | 2019-02-21 14:20 | PDOC.CMPRO ---
Care Management Progress Note S/O: Dave continues to be treated acutely with antibiotics. Dave has had a significant change to his discharge plan today. States he refuses to go to any Senior Living and he is definitely not returning to his sister's home. Son, Dave Day, is going to cloth picker his belongings and the tractor and trailer. They will be stored and Dave Sánchez was very pleased about that. Lesly Perez, his former and mother of his children, was in to visit. She is currently home on disability, has an extra room, and offered him a place to stay. She is willing to become the primary caregiver. Dave Sánchez would also like to give his son, Dave Day, POA and needs assistance with the paperwork. Dave Day and his are taking off from work tomorrow to help get his father settled in. Will need a hospital bed delivered to the residence. All of his new parts for the [employer] machine were delivered and set up by [employer] today. Contacts: Mariana Cordon, [phone] (Choices for Care Forester Aide) Dave Alston Jr. [phone] (Son) Lesly Perez [phone] (Ex-) A: Dave is a 63 year old male admitted to [facility] 02/13/19 with a COPD exacerbation who has a history of TBI, and a long history of alcohol use: sober since 2012. P: Dave is now planning to go to Lesly's home and will need new services for PT and OT. A hospital bed will need to be delivered prior to his arrival. Martha Cordon will need to be consulted regarding his Choices for Care benefits. Transportation will need to be arranged once medically cleared for discharge.
[2019-02-22] VITALS (19 sets, daily range): BP systolic 115–162; BP diastolic 62–84; PULSE 84–106; RESP 1–24; TEMP 36–36.8; O2SAT 93–99
[2019-02-22] MEDS: Albuterol/Ipratropium 3 ML UPD VIAL UPD ×6 (03:17→23:37)
--- NOTE | 2019-02-22 07:26 | OT.INTREAT ---
Date of service: 02/22/19 Time of Service: 07:00 Occupational Therapy Notes Occupational Therapy Inpatient Treatment Note Date: 02/22/19 PRECAUTIONS: Fall, Standard SUBJECTIVE: Pt was sitting in chair when OT arrived. He was agreeable to OT session and was feeling relieved that he does not have to return to his sister and brother in laws home. OBJECTIVE: PAIN:no c/o pain Therapeutic Activities [id number]: OT educated and trained pt in use of adaptive equipment including a shoe horn, sock aid, intelligence chief and dressing stick. Pt was able to sit in chair and don and doff (B) socks with use of dressing stick and intelligence chief with good technique and min vc throughout. Pt denies the need for bathing routine today. OT was able to perform LE dressing including don and doffing pants with increased (I) and decreased performance time. Pt does require min vc throughout. OT educated pt on the importance of conserving his breathing and staying in good breathing conditions to conserve his energy throughout his ADL routines. ASSESSMENT/PLAN: Pt was able to demonstrate adaptive equipment with increased (I). He was able to perform his LE within a short time frame with no reduction in O2. Pt states that he is willing to try using his adaptive equipment but that the need for this is less when his breathing is better controlled. OT was able to educate pt on use of adaptive equipment in seated position and pt was receptive to this. OT will monitor pts response to todays session and progress pts (I) in ADL routines. OT feels that pt will benefit from energy conservation techniques for increased (I) in his overall functional (I). TREATMENT CODES/TIME: [id number], 25 minutes [facility]
[2019-02-22 07:29] LABS: Abs Immature Grans 4.48 k/cumm (0.0-0.09); HCT 38.5 % (40.0-50.0); HGB 12.1 g/dL (13.5-17.5); Mean Corp. HGB Concentration 31.4 g/dL (32.0-36.0); Mean Corpuscular Hemoglobin 27.3 pg (27.0-33.0); Mean Corpuscular Volume 86.7 fL (80-95); RBC 4.44 m/cumm (4.50-6.00); RBC Distribution Width 16.9 % (11.8-14.1)
[2019-02-22 07:38] LABS: Anion Gap 5.5 mmol/L (3-11); BUN 22 mg/dL (7-18); CO2 32.5 mmol/L (21.0-32.0); CREATININE 0.63 mg/dL (0.70-1.30); Calcium 9.1 mg/dL (8.5-10.1); Chloride 99 mmol/L (98-107); Glucose 135 mg/dL (70-100); Potassium 4.5 mmol/L (3.5-5.1); Sodium 137 mmol/L (136-145)
[2019-02-22] MEDS: Budesonide 0.5 MG/2 ML UPD VIAL UPD ×2 (07:56→21:11)
[2019-02-22] MEDS: Budesonide/Formoterol 160/4.5 6 GM 60 PUFF INH IH ×2 (07:59→20:09)
[2019-02-22 08:47] LABS: Platelet Count 427 x1000/uL (130-400); White Blood Cell Count 41.09 k/cumm (4.4-10.8)
[2019-02-22 08:48] LABS: Absolute Lymphocyte Count 1.64 k/cumm (1.2-3.4); Absolute Monocyte Count 2.05 k/cumm (0.11-0.7); Absolute Neutrophil Count 32.87 k/cumm (1.2-6.7); Diff Comment Manual Differential; Hypochromasia 1+
[2019-02-22] MEDS: guaiFENesin 600 MG TABCR PO ×2 (09:05→20:10)
[2019-02-22] MEDS: levoFLOXacin 500 MG, levoFLOXacin 250 MG 750 MG PO (09:05)
[2019-02-22] MEDS: predniSONE 20 MG TAB 60 MG PO (09:05)
[2019-02-22] MEDS: Omeprazole 20 MG CAPCR 40 MG PO (09:05)
[2019-02-22] MEDS: dilTIAZem CD 180 MG CAPCR PO (09:05)
[2019-02-22] MEDS: Cyanocobalamin 500 MCG TAB 1000 MCG PO (09:06)
[2019-02-22] MEDS: Folic Acid 1 MG TAB PO (09:06)
[2019-02-22] MEDS: Aspirin 325 MG TAB PO (09:06)
[2019-02-22] MEDS: Roflumilast 500 MCG TAB PO (09:06)
[2019-02-22] MEDS: Ketoconazole 2% CREAM 15 GM TUBE TP (09:07)
--- NOTE | 2019-02-22 14:30 | PT.INTREAT ---
Date of service: 02/22/19 Time of Service: 14:30 PT Notes Inpatient Physical Therapy 02/22/19 SUBJECTIVE: Dave is agreeable to participating in PT. He reports that he is feeling pretty good today. OBJECTIVE: Pain: No c/o pain BED MOBILITY/TRANSFERS Supine to sit: I Sit to supine: I Sit to stand: I Stand to sit: I GAIT Assistive Device: FWW Weight bearing: Full Assist: SBA Distance: 300' in a.m.; 150' in p.m. VITALS: AM: At rest pre-gait: 95%, 114 bpm on 3L O2 NC; Post-gait: 93%, 134 bpm on 6L O2 NC; Following 2 minutes rest: 95%, 122 bpm PM: At rest pre-gait: 96%, 104 bpm on 3L O2 NC; Post-gait: 94%, 133 bpm on 6L O2 NC; Following 2 minutes rest: 97%, 120 bpm ASSESSMENT: Patient was able to tolerate a progression in gait distance with FWW support and SBA, and without significant SOB. He would benefit from continued general conditioning for improved activity tolerance. PLAN: Continue PT's POC. TREATMENT CODES/TIME: Session 1: 20 minutes; [id number] Session 2: 10 minutes; [id number]
--- NOTE | 2019-02-22 17:13 | PDOC.CMPRO ---
- If Service Date Differs Date of service: 02/22/19 Time of Service: 17:13 Care Management Progress Note S/O: Dave has just returned for ambulation with PT when CM enters the room. He remains inpatient status today plan is for Dave to be discharged home with his ex-spouse Lesly. Unable to coordinate the hospital bed delivery today awaiting prior auth through medicaid. CM met with Dave's son who brought all of Dave's equipment to [place] and exchanged it out for clean oxygen supplies. Per sons report the bed in the home has mildew, and the oxygen equipment was full of dirt and dog hair. CM contacted Mariana Cordon who is meeting with Dave and the family to review discharged plan and supports.She suggest that Dave transition to a skilled level of care while home is set up to his accommodations. Dave will not be discharged today, CM will continue to provide support and discharged planning. CM faxed all required paperwork to [place] for the hospital bed and spoke with Martha at central office. A: Dave is a 63 year old male admitted to [facility] 02/13/19 with a COPD exacerbation who has a history of TBI, and a long history of alcohol use: sober since 2012. P: Dave is now planning to go to Lesly's home and will need new services for PT and OT. A hospital bed will need to be delivered prior to his arrival. Martha Cordon will need to be consulted regarding his Choices for Care benefits. Transportation will need to be arranged once medically cleared for discharge and disposition determined.
--- NOTE | 2019-02-22 17:43 | PGE_ITS ---
Date of Service Date of service: 02/22/19 Time of Service: 17:43 Assessment and Plan (1) Acute on chronic respiratory failure with hypoxia and hypercapnia: Current visit: Yes Status: Acute Patient appears to have chronic Hypercapneic and Hypoxic Respiratory Failure, as witnessed by prior ABG and chronic O2 need. His PFTs obtained in January show significant dysfunction, with an FEV1 of 0.54 and FEV1/FVC of 32. He has multiple ED visits and admissions. Current exacerbation appears improved and nearing baseline. - Continue Pulmicort, Daliresp, standing Duoneb with prn albuterol. - Continue but wean oral oral prednisone, with plans for a slow taper. Current exaggerated WBC response may be steroid dependent, but needs to be followed up as an outpatient. - Also on Pip-Robbin for 2 days for growth of pseudomonas in sputum, without evidence of pneumonia by imaging, changed to oral Levofloxacin for total antibiotic duration of 4 days currently. - Continue above therapy, and monitor symptoms closely. Mr. Alston was also started on NIV therapy last hospitalization. (2) Hypertension: Current visit: No Status: Chronic Continue Diltiazem. Current pressures mildly elevated to reasonable in setting of steroid use. Continue to monitor. (3) GERD (gastroesophageal reflux disease): Current visit: No Status: Chronic On PPI therapy. (4) Low TSH level: Current visit: Yes Status: Acute Low TSH with a normal FT3 and T4 - possible sick euthyroid, checked in setting of acute illness. Monitor as outpatient. (5) DVT prophylaxis: Current visit: No Status: Acute Continue SCDs and TEDs - hold off chemical prophylaxis given history of intracranial bleed. (6) Advance directive on file: Current visit: No Status: Acute Full Code. Subjective Interval history since last seen: 63 year old man with a prior history of Oxygen dependent COPD, admitted from [facility] Emergency Department with a diagnosis of acute COPD Exacerbation. Mr. 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 He also has a history of CAD with prior [place], TIA, and Cerebellar Hemorrhage with resultant speech impediment. The patient previously received his medical care in [facility], but was admitted here last month, at which time he was treated for a COPD exacerbation in the setting of likely Pneumonia, with Pseudomonas on Sputum cultures - now presents to the ED with complaints of worsening dyspnea with sputum production. Initial CXR was negative for infection. The patient was admitted for treatment of likely acute exacerbation of his underlying COPD. Following admission he failed to progress well despite optimal treatment, and appeared to be growing Pseudomonas again in his sputum with repeat negative CXR. He was initiated on Antibiotic therapy with Pip-Robbin, and reports improvement overall in his symptoms. This morning Mr. Alston reports continued iimprovement, and is reportedly near baseline from a respiratory standpoint, but still with significant dyspnea and tachycardia with ambulation. He participated well with PT today.. His WBC continues to be elevated and worsening. He remains afebrile. No overnight events reports. Exam Narrative Exam Narrative: General: Patient appears chronically tachypneic, AAOX3, NAD. Impaired speech again noted. Neck: Supple CV: Regular, nontachycardic, S1S2, No rubs, murmurs, or gallops. Pulmonary: Significantly diminished breath sounds. No wheezing or rhonchi by exam today. Abdomen: + Bowel Sounds, soft, nontender, nondistended Vascular: No lower extremity edema Psych: Normal mood and affect. Objective Objective Clinical Data: Abnormal lab results 02/22/19 02/22/19 Range/Units 07:01 07:01 WBC 41.09 H* (4.4-10.8) k/cumm RBC 4.44 L (4.50-6.00) m/cumm Hgb 12.1 L (13.5-17.5) g/dL Hct 38.5 L (40.0-50.0) % MCHC 31.4 L (32.0-36.0) g/dL RDW 16.9 H (11.8-14.1) % Plt Count 427 H (130-400) x1000/uL Absolute Neutrophils 32.87 H (1.2-6.7) k/cumm Absolute Monocytes 2.05 H (0.11-0.7) k/cumm Carbon Dioxide 32.5 H (21.0-32.0) mmol/L BUN 22 H (7-18) mg/dL Creatinine 0.63 L (0.70-1.30) mg/dL Glucose 135 H (70-100) mg/dL Vital Signs Temperature 36.8 C 02/22/19 15:04 Temperature Source Tympanic 02/22/19 15:04 Pulse 98 H 02/22/19 16:32 Pulse Rhythm Regular 02/22/19 07:30 Pulse 96 H 02/16/19 20:02 Respiratory Rate 22 02/22/19 16:32 Respiratory Effort Short of Breath 02/22/19 07:30 Respiratory Depth Shallow 02/22/19 07:30 Respiratory Pattern Normal 02/22/19 07:30 Blood Pressure 115/62 02/22/19 15:04 Blood Pressure Mean 93 02/17/19 09:36 Blood Pressure Position Sitting 02/13/19 16:43 Pulse Oximetry 99 02/22/19 16:32 Oxygen Delivery Method Nasal Cannula 02/22/19 16:29 Oxygen Flow Rate 3 02/22/19 16:29 Fraction of Inspired Oxygen (FIO2) 30 02/14/19 14:42 Pain Level 0 02/22/19 15:04 Comment 02/21/19 07:47 Intake & Output 02/21/19 02/22/19 02/22/19 23:59 11:59 23:59 Intake Total 580 / 1170 110 / 586 476 / 586 Output Total 800 / 1200 675 / 675 Balance -220 / -30 -565 / -89 476 / -89 Weight 68.9 kg Intake: IV 100 / 110 10 / 10 Oral 480 / 1060 100 / 576 476 / 576 Output: Urine 800 / 1200 675 / 675 Other: Urine Color Yellow Yellow Urine Appearance Clear Clear Urine Odor None Normal Comment voids x2 in urinal. Stool Size Small Stool Characteristics Soft Formed Brown Voiding Methods Urinal Urinal Laboratory Results WBC 41.09 k/cumm (4.4-10.8) H* 02/22/19 07:01 RBC 4.44 m/cumm (4.50-6.00) L 02/22/19 07:01 Hgb 12.1 g/dL (13.5-17.5) L 02/22/19 07:01 Hct 38.5 % (40.0-50.0) L 02/22/19 07:01 MCV 86.7 fL (80-95) 02/22/19 07:01 MCH 27.3 pg (27.0-33.0) 02/22/19 07:01 MCHC 31.4 g/dL (32.0-36.0) L 02/22/19 07:01 RDW 16.9 % (11.8-14.1) H 02/22/19 07:01 Plt Count 427 x1000/uL (130-400) H 02/22/19 07:01 MPV 9.0 fL (8.0-11.0) 02/22/19 07:01 Immature Gran % See Differential 02/22/19 07:01 76.0 02/22/19 07:01 4.0 % 02/22/19 07:01 4.0 02/22/19 07:01 Atypical Lymphs % 0 02/13/19 16:50 5.0 02/22/19 07:01 0.0 02/22/19 07:01 0.0 02/22/19 07:01 3.0 % 02/22/19 07:01 8.0 % 02/22/19 07:01 Absolute Neutrophils 32.87 k/cumm (1.2-6.7) H 02/22/19 07:01 Absolute Lymphocytes 1.64 k/cumm (1.2-3.4) 02/22/19 07:01 Absolute Monocytes 2.05 k/cumm (0.11-0.7) H 02/22/19 07:01 Absolute Eosinophils 0.00 k/cumm (0.0-0.7) 02/22/19 07:01 Absolute Basophils 0.00 k/cumm (0.0-0.2) 02/22/19 07:01 Manual differential 02/22/19 07:01 RBC Morphology See below 02/21/19 06:30 Present 02/18/19 10:30 1+ 02/22/19 07:01 1+ 02/18/19 10:30 Present 02/18/19 10:30 1+ 02/21/19 06:30 2+ 02/13/19 16:50 PT 9.6 sec (9.3-11.0) 02/13/19 16:50 INR 1.0 (0.9-1.1) 02/13/19 16:50 APTT 25.0 sec (21.0-31.4) 02/13/19 16:50 Sample Site Right radial 02/13/19 17:01 pCO2 81 mmHg (34-47) H* 02/13/19 17:01 pO2 71 mmHg (83-108) L 02/13/19 17:01 O2 Saturation 93 % (94-98) L 02/13/19 17:01 ABG pH 7.32 (7.35-7.45) L 02/13/19 17:01 ABG HCO3 41 mmol/L (22-28) H 02/13/19 17:01 ABG Total CO2 38 mmol/L (22-29) H 02/13/19 17:01 ABG Base Excess 14.7 mmol/L (-3-3) H 02/13/19 17:01 Oxygen Liter Flow Bipap 10/5 L 02/13/19 17:01 40% % 02/13/19 17:01 Sodium 137 mmol/L (136-145) 02/22/19 07:01 Potassium 4.5 mmol/L (3.5-5.1) 02/22/19 07:01 Chloride 99 mmol/L (98-107) 02/22/19 07:01 Carbon Dioxide 32.5 mmol/L (21.0-32.0) H 02/22/19 07:01 5.5 mmol/L (3-11) 02/22/19 07:01 BUN 22 mg/dL (7-18) H 02/22/19 07:01 0.63 mg/dL (0.70-1.30) L 02/22/19 07:01 >= 60.00 (mL/min/1.73m2) 02/22/19 07:01 Glucose 135 mg/dL (70-100) H 02/22/19 07:01 Calcium 9.1 mg/dL (8.5-10.1) 02/22/19 07:01 Magnesium 2.0 mg/dL (1.8-2.4) 02/22/19 07:01 Iron 79 ug/dL (50-175) 02/16/19 06:10 TIBC 227 ug/dL (250-450) L 02/16/19 06:10 Transferrin % Sat 35 % (20-55) 02/16/19 06:10 268 ng/mL (8-388) 02/16/19 06:10 0.1 mg/dL (0.2-1.0) L 02/14/19 06:45 AST 9 U/L (15-37) L 02/14/19 06:45 ALT 21 U/L (12-78) 02/14/19 06:45 132 U/L (46-116) H 02/14/19 06:45 < 0.05 ng/mL (0.00-0.06) 02/13/19 20:30 NT-Pro-B Natriuret Pep 62 pg/mL (-299) 02/13/19 16:50 6.8 g/dL (6.4-8.2) 02/14/19 06:45 2.5 g/dL (3.4-5.0) L 02/14/19 06:45 Vitamin B12 339 pg/mL (193-986) 02/16/19 06:10 5.1 ng/mL (8.6-20.0) L 02/16/19 06:10 < 0.1 ng/mL 02/15/19 06:25 TSH 0.09 uIU/mL (0.36-3.74) L 02/15/19 06:25 Free T4 1.07 ng/dL (0.76-1.46) 02/15/19 06:25 Free T3 pg/mL 3.5 pg/mL (2.8-5.3) 02/15/19 06:25 Total T3 96 ng/dL (97-169) L 02/15/19 06:25 Thyroperoxidase Ab <28 U/mL (<61) 02/15/19 06:25 Thyroglobulin Antibody <15 U/mL (<61) 02/15/19 06:25 Pathology Consult Spec 02/15/19 06:25
[2019-02-22] MEDS: predniSONE 20 MG TAB 40 MG PO (20:10)
[2019-02-23] VITALS (10 sets, daily range): BP systolic 117–149; BP diastolic 67–84; PULSE 87–99; RESP 1–20; TEMP 36.3–36.6; O2SAT 95–99
[2019-02-23] MEDS: Albuterol/Ipratropium 3 ML UPD VIAL UPD ×4 (03:44→16:23)
[2019-02-23 06:57] LABS: Abs Immature Grans 3.79 k/cumm (0.0-0.09); HCT 36.9 % (40.0-50.0); HGB 11.3 g/dL (13.5-17.5); Mean Corp. HGB Concentration 30.6 g/dL (32.0-36.0); Mean Corpuscular Hemoglobin 26.4 pg (27.0-33.0); Mean Corpuscular Volume 86.2 fL (80-95); Platelet Count 386 x1000/uL (130-400); RBC 4.28 m/cumm (4.50-6.00)
[2019-02-23 07:22] LABS: Anion Gap 5.4 mmol/L (3-11); BUN 23 mg/dL (7-18); CO2 33.6 mmol/L (21.0-32.0); CREATININE 0.59 mg/dL (0.70-1.30); Calcium 8.7 mg/dL (8.5-10.1); Chloride 99 mmol/L (98-107); Glucose 200 mg/dL (70-100); Magnesium 1.9 mg/dL (1.8-2.4); Potassium 4.2 mmol/L (3.5-5.1); Sodium 138 mmol/L (136-145)
[2019-02-23 07:28] LABS: White Blood Cell Count 37.96 k/cumm (4.4-10.8)
[2019-02-23 07:29] LABS: Absolute Lymphocyte Count 2.28 k/cumm (1.2-3.4); Absolute Monocyte Count 2.66 k/cumm (0.11-0.7); Absolute Neutrophil Count 29.61 k/cumm (1.2-6.7)
[2019-02-23 07:30] LABS: Anisocytosis 2+; Diff Comment Manual Differential; Hypochromasia 1+; Polychromasia Present
[2019-02-23] MEDS: Ketoconazole 2% CREAM 15 GM TUBE TP (08:17)
[2019-02-23] MEDS: Cyanocobalamin 500 MCG TAB 1000 MCG PO (08:18)
[2019-02-23] MEDS: dilTIAZem CD 180 MG CAPCR PO (08:18)
[2019-02-23] MEDS: guaiFENesin 600 MG TABCR PO (08:18)
[2019-02-23] MEDS: Omeprazole 20 MG CAPCR 40 MG PO (08:18)
[2019-02-23] MEDS: Aspirin 325 MG TAB PO (08:18)
[2019-02-23] MEDS: Folic Acid 1 MG TAB PO (08:18)
[2019-02-23] MEDS: predniSONE 20 MG TAB 40 MG PO (08:18)
[2019-02-23] MEDS: Roflumilast 500 MCG TAB PO (08:18)
--- NOTE | 2019-02-23 08:19 | OT.INTREAT ---
Date of service: 02/23/19 Time of Service: 07:30 Occupational Therapy Notes Occupational Therapy Inpatient Treatment Note Date: 02/23/19 PRECAUTIONS: Fall, Standard SUBJECTIVE: Pt was sitting in chair when OT arrived. He was agreeable to OT session and states that he is looking forward to getting out of the hospital. OBJECTIVE: PAIN:no c/o pain FUNCTIONAL MOBILITY Sit-stand: (S) Stand-sit: (S) DRESSING: Sitting in chair Upper Extremity: (I) donning t-shirt Lower Extremity: (I) don and doffing pants and socks Therapeutic Activities [id number]: Pt was educated and trained in energy conservation techniques for ADLs/IADLs and leisure activities. He was able to verbalize energy conservation techniques and demonstrate them with good technique with min vc for pacing and respecting his breathing to decrease the risk of exacerbation. ASSESSMENT/PLAN: Pt was receptive to education provided about energy conservation techniques. He was able to demonstrate them with good technique. He was able to perform his ADLs/IADLs with his dressing routine with increased (I). He notes that he feels that his breathing is getting better. Pt is anxious to be discharged, OT will monitor pts response to todays session and progress according to symptoms. TREATMENT CODES/TIME: 35500w1, 30 minutes Katie Barclay OTR/[facility]
[2019-02-23] MEDS: Budesonide 0.5 MG/2 ML UPD VIAL UPD (09:27)
[2019-02-23] MEDS: levoFLOXacin 500 MG, levoFLOXacin 250 MG 750 MG PO (09:33)
[2019-02-23] MEDS: Budesonide/Formoterol 160/4.5 6 GM 60 PUFF INH IH (09:40)
--- NOTE | 2019-02-23 10:49 | PT.INTREAT ---
Date of service: 02/23/19 Time of Service: 10:15 PT Notes Inpatient Physical Therapy 02/23/19 SUBJECTIVE: Dave is agreeable to participating in PT. He reports that he is feeling pretty good today. OBJECTIVE: Pain: No c/o pain BED MOBILITY/TRANSFERS Supine to sit: I Sit to supine: I Sit to stand: I Stand to sit: I GAIT Assistive Device: FWW Weight bearing: Full Assist: SBA Distance: 160' x 1; 100'x1 VITALS: AM: At rest pre-gait: 98%, 120 bpm on 3L O2 NC; Post-gait: 92%, 125 bpm on 6L O2 NC; Following therex: 94%, 140bpm. THEREX: Patient was instructed in standing LE strengthening activities, with need for frequent cues for breathing and technique. He require close monitoring of vitals and encouragement for seated rest and pursed lip breathing for recovery. ASSESSMENT: Patient was able to tolerate a progression to addition of therex activities today. PLAN: Continue PT's POC. TREATMENT CODES/TIME: 30 minutes; [id number]; [id number]
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
--- NOTE | 2019-02-23 13:42 | PDOC.CMDIS ---
- If Service Date Differs Date of service: 02/23/19 Time of Service: 13:42 LACE Index Scoring Tool - Questions: Length of Stay (in days): 7 - 13 Acuity (Admit via E.D.?): Yes Comorbidities: Chronic Pulmonary Disease Care Management Discharge Reason for Hospitalization: COPD Exacerbation, Pumonary fibrosis, Afib with RVR Discharge Plan: Dave is being discharged to his ex spouses home with a new hospital bed through [facility] and resp equipment through [facility]. [facility] will be out to set up his equipment today. His prescriptions will all be filled through [facility] in [place] as his new pharmacy. He will need a new local primary care CM will send the referal to office of his choice. He will need to have a one time follow up with his [place] provider until then. His son and daughter in law will transport him home at time of discharge. Patient/Family Education Needs: Discharge edcuation, limitations and follow up plan of care including ask me three including teaching with his family. Services Needed at Discharge: DME Agency, Home Health Care Services, Occupational Therapy, Physical Therapy
--- NOTE | 2019-02-23 16:42 | HHF2F_ITS ---
1. Encounter Date and Reason I certify that NOHEMY AVILA was seen by Thien Huitron on 02/23/19 and that I had a [id number] encounter with this patient that meets the physician face to face encounter requirements. 2. Clinical Findings Supporting Skilled Need and Homebound Status I certify that home health services are medically necessary, include either intermittent retirement and/or physical/speech therapy, and that this patient is homebound in that absences from the home require considerable and taxing effort and are infrequent or of short duration, or are attributable to the need to receive medical care. [X] (a) Attached documentation from encounter provides clinical findings supporting skilled need and homebound status (including what assistance patient requires to leave the home). The encounter with the patient was in whole, or in part, for the following medical condition, which is the primary reason for home health care: COPD EXACERBATION,PULMONARY FIBROSIS,PAFIB WITHRVR Jail: Medication reconciliation, Monitoring of respiratory status Physical Therapy/Occupational Therapy: Deconditioning, end-stage COPD DIRECTOR OF DIGITAL TECHNOLOGY: Assess patient's needs and for resources in the community 3. Certification and Authentication I certify that I composed the above information based on my clinical judgement relating to this patient's medical condition and, if applicable, clinical findings communicated to me by the NPP or inpatient physician who performed the Home Health Referral. All further orders will be obtained through (Community Based Physician - PCP)
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
--- NOTE | 2019-02-24 10:53 | PT.INDS ---
Date of service: 02/24/19 Time of Service: 10:54 PT Notes Date: 02/24/2019 Referring Doctor: Juanita Sullivan MD PT Orders: PT CONSULT: Evaluate and treat Precautions: Fall. Standard. Treatment Dates: 02/19/19 - 02/23/19 This document serves as a summary of care. No PT services were provided on this date. Patient Profile/Admitting Diagnosis: Patients is a 63-year-old male patient with past medical history significant for cerebellar hemmorrhage, CAD, TIA, and hypertension who presented to the ED on 02/13/2019 with chief complaints of shortness of breath and low oxygen saturation levels. Patient was was diagnosed with COPD exacerbation and paroxysmal supraventricular tachycardia. Referral to physical therapy was made today to address deconditioning and impairments in activity tolerance. Patient participated in 6 PT sessions over the course of 5 days, and demonstrated improvements in safety and mobility sufficient to allow for safe return home with family assistance. Subjective: None obtained as patient discharged home after morning PT session 02/23/19 Objective: ROM: Right Upper Extremity: Shoulder Flexion WFL. Shoulder abduction WFL. Elbow flexion WFL. Wrist flexion WFL. Functional opening and closing of hand WFL but comparatively weaker than the R. Left Upper Extremity: Shoulder Flexion WFL. Shoulder abduction WFL. Elbow flexion WFL. Wrist flexion WFL. Functional opening and closing of hand WFL. Right Lower Extremity: Hip flexion WFL. Hip abduction WFL. Knee flexion WFL. Ankle dorsiflexion WFL. Ankle plantarflexion WFL. Left Lower Extremity: Hip flexion WFL. Hip abduction WFL. Knee flexion WFL. Ankle dorsiflexion WFL. Ankle plantarflexion WFL. Strength: Right Upper Extremity: Shoulder flexors 5/5. Shoulder abductors 5/5. Elbow flexors 5/5. Elbow extensors 5/5. Chief Human Resources Officer strong. Left Upper Extremity: Shoulder flexors 5/5. Shoulder abductors 5/5. Elbow flexors 5/5. Elbow extensors 5/5. Chief Human Resources Officer strong. Right Lower Extremity: Hip flexors 4+/5. Hip abductors 4/5. Knee flexors 4/5. Knee extensors 4+/5. Ankle dorsiflexors 5/5. Ankle plantarflexors 5/5. Left Lower Extremity:Hip flexors 4+/5. Hip abductors 4/5. Knee flexors 4/5. Knee extensors 4+/5. Ankle dorsiflexors 5/5. Ankle plantarflexors 5/5. Sensation: Intact as to pain and pressure on bilateral LEs Bed Mobility/Transfers: Rolling I Supine to sit I Sit to supine I Sit to stand I Stand to sit I Bed to chair: independent Chair to bed: independent Gait: Patient tolerates up to 300' of ambulation with FWW and supplemental O2 at 6LPM. Balance: Static Sitting: Normal Dynamic Sitting: Normal Static Standing: Normal Dynamic Standing: Good Informed Consent/Education: Patient instructed in purpose of PT consult and plan of care. Conversation regarding use of an assistive device to conserve energy has been discussed with patient but he remains decisive about not using any AD at this time. Assessment: Patients is a 63-year-old male patient with past medical history significant for cerebellar hemmorrhage, CAD, TIA, and hypertension who was diagnosed with COPD exacerbation and paroxysmal supraventricular tachycardia. Patient participated in 6 PT sessions over the course of 5 days, and demonstrated improvements in safety and mobility sufficient to allow for safe return home with family assistance. He requires ongoing PT intervention via services to maximize his safety and activity tolerance as he transitions to a new living situation and returns to community activities. Goals: Goals X1 week 1. Independent gait on level and non-level surface ambulation without assistive device for at least 300 feet without report of dyspnea on 5 L/min (progressing toward) 2. Independent stair negotiation while holding onto bilateral rails for at least 5 steps without report of pain nor dyspnea (not assessed due to changing discharge plans) 3. Independent with home exercise program (met) 4. Normal static and dynamic standing balance/tolerance (met) Plan of Care/Treatment Plan: Discharge from PT services in acute care setting DISCHARGE RECOMMENDATIONS: home with family assistance Fidelina Schroeder, PT, DPT [facility]
== END 2019-02-23 17:20 | disposition home or self-care (01) | DRG 189 ==
LOC: ER 19:39 → ICU 21:14 → MS 02-23 12:20 → ICU 02-26 13:56
PROVIDERS: Internal Medicine; Admitting Provider Family Medicine; Emergency Provider Emergency Medicine; PCP Family Medicine; Visit Provider Internal Medicine
DX: J96.21 Acute and chronic respiratory failure with hypoxia (principal); I47.1 Supraventricular tachycardia; J96.22 Acute and chronic respiratory failure with hypercapnia; J43.2 Centrilobular emphysema; R94.6 Abnormal results of thyroid function studies; I10 Essential (primary) hypertension; K21.9 Gastro-esophageal reflux disease without esophagitis; D72.829 Elevated white blood cell count, unspecified; T38.0X5A Adverse effect of glucocorticoids and synthetic analogues, initial encounter; Z87.891 Personal history of nicotine dependence; E78.5 Hyperlipidemia, unspecified; Z51.5 Encounter for palliative care; D47.3 Essential (hemorrhagic) thrombocythemia
CPT/HCPCS: 36415; 71275; 80048; 80053; 82805; 84145; 85027; 86376; 87077; 93005; 94640; 96365; 96375; 97110; 97162; 97166; 97530; 97535; 99223; 99231; 99232; 99239; 99255; 99285; 36600; 71045; 71046; 82607; 82728; 82746; 83540; 83550; 83735; 83880; 84439; 84443; 84480; 84481; 84484; 85025; 85610; 85730; 87070; 87186; 87205; 93010; 94660; J1644; J2060; J2543; J2930; J3475; J3480; J3490; J7512; J7613; J7620; J7626

== ENCOUNTER 2019-03-06 19:30 | Outpatient (REF) | payer MEDICAID, SELFPAY ==
[2019-03-07 22:18] LABS: Result Positive; Specimen Description Feces
== END 2019-03-06 19:50 ==
LOC: LBN 19:30
PROVIDERS: PCP Family Medicine; Visit Provider Family Medicine
DX: K21.0 Gastro-esophageal reflux disease with esophagitis (principal)
CPT/HCPCS: 87324; 87798

== ENCOUNTER 2019-04-27 12:02 | Emergency (ER) | payer MEDICAID, SELFPAY ==
[2019-04-27] VITALS (53 sets, daily range): BP systolic 105–158; BP diastolic 62–92; PULSE 63–138; RESP 2–30; TEMP 37–37.1; O2SAT 93–100
--- NOTE | 2019-04-27 12:16 | DI.RAD_ITS ---
EXAM: XR PORTABLE CHEST AP INDICATION: SOB. COMPARISON: XR CHEST 2V PA LATERAL from 02/16/2019 TECHNIQUE: 2D digital imaging was performed. FINDINGS: Heart size is normal. There is mild hyperinflation and changes of COPD. No superimposed acute infi ltrate, effusion or pulmonary edema is seen. IMPRESSION: COPD. No acute abnormality.
[2019-04-27] MEDS: Albuterol/Ipratropium 3 ML UPD VIAL ×2 (12:17→12:29)
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
[2019-04-27] MEDS: Albuterol/Ipratropium 3 ML UPD VIAL UPD (12:22)
[2019-04-27 12:27] LABS: HCO3 (Venous) 37 mmol/L (22-28); O2 Sat (Venous) 78 % (70-80); TCO2 (Venous) 34 mmol/L (22-29); pH (Venous) 7.29 (7.32-7.43); pO2 (Venous) 46 mm/Hg (28-44)
[2019-04-27 12:28] LABS: Abs Immature Grans 0.03 k/cumm (0.0-0.09); Absolute Basophil Count 0.07 k/cumm (0.0-0.2); Absolute Eosinophil Count 0.54 k/cumm (0.0-0.7); Absolute Lymphocyte Count 2.25 k/cumm (1.2-3.4); Absolute Monocyte Count 1.16 k/cumm (0.11-0.7); Basophils % 0.6; Eosinophils % 4.7; HCT 43.2 % (40.0-50.0); HGB 13.2 g/dL (13.5-17.5); Immature Grans % 0.3; Lymphocytes % 19.5; Mean Corp. HGB Concentration 30.6 g/dL (32.0-36.0); Mean Corpuscular Volume 85.2 fL (80-95); Mean Platelet Volume 8.9 fL (8.0-11.0); Monocytes % 10.1; Neutrophils % 64.8; Platelet Count 402 x1000/uL (130-400); RBC 5.07 m/cumm (4.50-6.00); RBC Distribution Width 15.9 % (11.8-14.1); White Blood Cell Count 11.53 k/cumm (4.4-10.8)
[2019-04-27 12:31] LABS: pCO2 (Venous) 76 mm/Hg (34-47)
[2019-04-27 12:32] LABS: Absolute Neutrophil Count 7.47 k/cumm (1.2-6.7)
[2019-04-27 12:52] LABS: ALT 13 U/L (16-63); AST 9 U/L (15-37); Albumin 3.9 g/dL (3.4-5.0); Alkaline Phosphatase 136 U/L (46-116); BUN 13 mg/dL (7-18); Bilirubin, Total 0.3 mg/dL (0.2-1.0); CREATININE 0.64 mg/dL (0.70-1.30); Calcium 9.4 mg/dL (8.5-10.1); Chloride 100 mmol/L (98-107); Glucose 94 mg/dL (70-100); Magnesium 1.8 mg/dL (1.8-2.4); Potassium 3.8 mmol/L (3.5-5.1); Sodium 141 mmol/L (136-145); Total Protein 7.8 g/dL (6.4-8.2)
[2019-04-27 12:54] LABS: Troponin I < 0.05 ng/mL (0.00-0.06)
[2019-04-27] MEDS: methylPREDNISolone SUCC 125 MG VIAL IVP (12:56)
[2019-04-27] MEDS: Normal Saline 1,000 ML 1000 ML IV ×2 (12:57→14:02)
[2019-04-27 12:58] LABS: NT-proBNP 43 pg/mL
[2019-04-27] MEDS: Normal Saline Flush 10 ML SYR IVP (12:58)
[2019-04-27] MEDS: dilTIAZem 30 MG TAB 180 MG PO (14:00)
[2019-04-27 16:06] LABS: Troponin I < 0.05 ng/mL (0.00-0.06)
== END 2019-04-27 16:25 | disposition home or self-care (01) ==
PROVIDERS: Emergency Provider Physician Assistant
DX: J44.1 Chronic obstructive pulmonary disease with (acute) exacerbation (principal); I10 Essential (primary) hypertension; Z87.891 Personal history of nicotine dependence
CPT/HCPCS: 36415; 80053; 82805; 87880; 93005; 94640; 96361; 96374; 99285; 71045; 83735; 83880; 84484; 85025; 87081; 93010; J2930; J7620

== ENCOUNTER 2019-05-31 08:40 | Inpatient (IN) | payer MEDICAID, SELFPAY ==
[2019-05-31] VITALS (80 sets, daily range): BP systolic 111–141; BP diastolic 58–82; PULSE 90–139; RESP 2–39; TEMP 36.9–37.5; O2SAT 87–99
--- NOTE | 2019-05-31 08:48 | DI.RAD_ITS ---
EXAM: XR PORTABLE CHEST AP INDICATION: SOB. COMPARISON: XR PORTABLE CHEST AP from 04/27/2019 TECHNIQUE: 2D digital imaging was performed. FINDINGS: The heart size is normal. The aorta is mildly tortuous. There are underlying emphysematous changes. The lungs are otherwise clear. IMPRESSION: No acute abnormality.
[2019-05-31] MEDS: Albuterol/Ipratropium 3 ML UPD VIAL UPD ×5 (08:59→23:57)
[2019-05-31 09:03] LABS: BE (Venous) 9.8 mmol/L (-3-3); HCO3 (Venous) 36 mmol/L (22-28); O2 Sat (Venous) 76 % (70-80); TCO2 (Venous) 33 mmol/L (22-29); pO2 (Venous) 45 mm/Hg (28-44)
[2019-05-31] MEDS: Albuterol/Ipratropium 3 ML UPD VIAL ×2 (09:03→09:08)
[2019-05-31 09:06] LABS: pCO2 (Venous) 73 mm/Hg (34-47)
[2019-05-31 09:10] LABS: Abs Immature Grans 0.03 k/cumm (0.0-0.09); Absolute Basophil Count 0.09 k/cumm (0.0-0.2); Absolute Eosinophil Count 0.68 k/cumm (0.0-0.7); Absolute Lymphocyte Count 2.45 k/cumm (1.2-3.4); Absolute Monocyte Count 0.98 k/cumm (0.11-0.7); Absolute Neutrophil Count 7.02 k/cumm (1.2-6.7); Basophils % 0.8; HCT 44.5 % (40.0-50.0); HGB 13.2 g/dL (13.5-17.5); Immature Grans % 0.3; Lymphocytes % 21.8; Mean Corp. HGB Concentration 29.7 g/dL (32.0-36.0); Mean Corpuscular Hemoglobin 25.1 pg (27.0-33.0); Mean Corpuscular Volume 84.8 fL (80-95); Monocytes % 8.7; Neutrophils % 62.4; Platelet Count 370 x1000/uL (130-400); RBC 5.25 m/cumm (4.50-6.00); RBC Distribution Width 15.4 % (11.8-14.1); White Blood Cell Count 11.25 k/cumm (4.4-10.8)
[2019-05-31] MEDS: methylPREDNISolone SUCC 125 MG VIAL IVP (09:20)
[2019-05-31] MEDS: Normal Saline 1,000 ML 1000 ML IV (09:20)
[2019-05-31 09:22] LABS: ALT 21 U/L (16-63); AST 12 U/L (15-37); Albumin 3.9 g/dL (3.4-5.0); Alkaline Phosphatase 122 U/L (46-116); Anion Gap 4.2 mmol/L (3-11); BUN 17 mg/dL (7-18); Bilirubin, Total 0.1 mg/dL (0.2-1.0); CO2 35.8 mmol/L (21.0-32.0); Calcium 9.4 mg/dL (8.5-10.1); Chloride 101 mmol/L (98-107); Glucose 104 mg/dL (74-106); Potassium 4.3 mmol/L (3.5-5.1); Sodium 141 mmol/L (136-145); Total Protein 7.5 g/dL (6.4-8.2)
[2019-05-31 09:32] LABS: Troponin I < 0.05 ng/Ml (<0.06)
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
[2019-05-31 10:17] LABS: Lactate 1.9 mmol/L (0.6-1.4)
[2019-05-31 12:47] LABS: Troponin I < 0.05 ng/Ml (<0.06)
[2019-05-31] MEDS: Enoxaparin 40 MG/0.4 ML SYR SC (13:20)
[2019-05-31] MEDS: Lactobacillus Acidophilus CAP 1 CAP PO ×2 (13:20→20:00)
--- NOTE | 2019-05-31 14:10 | RESPIRATORY ---
Scotty Harris call and informed about Patient's concerns involving his concentrator shutting off in the night. Scotty was instructed to call Laurie Perez prior to going to patients residence as he' currently in the ICU. She currently present with the patient in hospital, Laurie's phone number was given to Scotty Harris.
[2019-05-31 14:13] LABS: Lactate 3.6 mmol/L (0.6-1.4)
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
[2019-05-31] MEDS: Budesonide 0.5 MG/2 ML UPD VIAL UPD (16:46)
[2019-05-31 17:43] LABS: Procalcitonin 0.1 ng/mL
[2019-05-31] MEDS: methylPREDNISolone SUCC 125 MG VIAL 60 MG IVP (18:11)
[2019-05-31] MEDS: Normal Saline 1,000 ML 125 ML IV (18:11)
[2019-05-31] MEDS: guaiFENesin 600 MG TABCR PO (20:00)
--- NOTE | 2019-05-31 21:03 | NUR.NOTE ---
OOB to commode for BM. Moves well but becomes extrmely SOB with any type of movement. 5-10 minute recovery time when getting back to bed.Nursing Note:
[2019-06-01] VITALS (158 sets, daily range): BP systolic 98–155; BP diastolic 56–126; PULSE 66–163; RESP 4–31; TEMP 36.5–37.1; O2SAT 85–98
[2019-06-01] MEDS: methylPREDNISolone SUCC 125 MG VIAL 60 MG IVP ×3 (02:22→19:28)
[2019-06-01] MEDS: dilTIAZem 25 MG/5 ML VIAL (03:05)
[2019-06-01] MEDS: dilTIAZem 25 MG/5 ML VIAL 10 MG IVP (03:05)
[2019-06-01] MEDS: dilTIAZem 125 MG in Normal Saline 100 ML IV (03:10)
[2019-06-01] MEDS: Digoxin 0.5 MG/2 ML AMP 0.25 MG IVP ×3 (04:35→16:22)
--- NOTE | 2019-06-01 05:30 | NUR.NOTE ---
NPt went into [facility]. notified and orders receved. 0305-10 mg bolus IV diltiazem given. 0310 HR 155-160 and sustained. Dilt gtt hung at 5 [id number] HR 155. dilt gtt up to 10 mg. 0320- HR 155-160. dilt gtt up to 15 mg. 0325 [id number] returned call. 15 mg dilt given. Gtt up to 20 mg.0435- present. 0435- 15 mg dilt bolus given. at bedside, ordered digoxin 0.25 IV. O2 increased to 3 L. HR now 120's. BP 110/76ursing Note:
[2019-06-01 05:37] LABS: Lactate 0.8 mmol/L (0.6-1.4)
[2019-06-01 05:47] LABS: Abs Immature Grans 0.03 k/cumm (0.0-0.09); Absolute Basophil Count 0.02 k/cumm (0.0-0.2); Absolute Lymphocyte Count 0.87 k/cumm (1.2-3.4); Absolute Monocyte Count 0.27 k/cumm (0.11-0.7); Absolute Neutrophil Count 15.88 k/cumm (1.2-6.7); Basophils % 0.1; HCT 39.2 % (40.0-50.0); HGB 11.9 g/dL (13.5-17.5); Immature Grans % 0.2; Lymphocytes % 5.1; Mean Corp. HGB Concentration 30.4 g/dL (32.0-36.0); Mean Corpuscular Hemoglobin 25.1 pg (27.0-33.0); Mean Corpuscular Volume 82.5 fL (80-95); Mean Platelet Volume 9.4 fL (8.0-11.0); Monocytes % 1.6; Platelet Count 359 x1000/uL (130-400); RBC 4.75 m/cumm (4.50-6.00); RBC Distribution Width 15.7 % (11.8-14.1); White Blood Cell Count 17.07 k/cumm (4.4-10.8)
[2019-06-01 05:48] LABS: Anion Gap 7.9 mmol/L (3-11); BUN 17 mg/dL (7-18); CO2 30.1 mmol/L (21.0-32.0); CREATININE 0.56 mg/dL (0.70-1.30); Calcium 8.8 mg/dL (8.5-10.1); Chloride 105 mmol/L (98-107); Glucose 127 mg/dL (74-106); Magnesium 1.7 mg/dL (1.8-2.4); Potassium 3.8 mmol/L (3.5-5.1); Sodium 143 mmol/L (136-145)
[2019-06-01 05:54] LABS: Troponin I < 0.05 ng/Ml (<0.06)
[2019-06-01] MEDS: Levalbuterol 1.25 MG/3 ML UPD VIAL UPD ×3 (07:34→22:10)
[2019-06-01] MEDS: Budesonide 0.5 MG/2 ML UPD VIAL UPD ×2 (07:41→19:29)
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
[2019-06-01] MEDS: Roflumilast 500 MCG TAB PO (08:41)
[2019-06-01] MEDS: guaiFENesin 600 MG TABCR PO ×2 (08:42→19:27)
[2019-06-01] MEDS: Omeprazole 20 MG CAPCR PO (08:42)
[2019-06-01] MEDS: Aspirin 325 MG TAB PO (08:42)
[2019-06-01] MEDS: Folic Acid 1 MG TAB PO (08:43)
[2019-06-01] MEDS: dilTIAZem CD 180 MG CAPCR PO (08:43)
[2019-06-01] MEDS: Lactobacillus Acidophilus CAP 1 CAP PO ×3 (08:43→19:27)
[2019-06-01 09:36] LABS: Troponin I < 0.05 ng/Ml (<0.06)
--- NOTE | 2019-06-01 09:37 | RESPIRATORY ---
At 0935 nursing informed RT that they found pt's Proair HFA (albuterol sulfate) inhaler hidden in his bed. It is unclear if pt has been self administering this medication and if so, for how long. Medication was previously discontinued.
[2019-06-01] MEDS: Potassium Chloride 20 MEQ TABCR PO (11:09)
[2019-06-01] MEDS: MAGNESIUM SULFATE 1 GM/100 ML BAG IVPB (11:09)
[2019-06-01] MEDS: Normal Saline 1,000 ML 125 ML IV (11:10)
--- NOTE | 2019-06-01 12:29 | DI.US_ITS ---
APPROVED REPORT EXAM: Comprehensive 2D, Doppler, and color-flow Echocardiogram Rhythm: NSR Indications: evaluate LV RV function patient with end stage COPD afib Conclusion This echocardiogram is technically limited Left Ventricle : The left ventricle is normal. The posterior wall thickness is normal. The septum is normal. The left ventricular systolic function is normal. There is normal LV segmental wall motion. There is septal flattening suggestive of RV pressure overload LV diastolic function is indeterminate . LVEF is estimated to be 55-60%. Right Ventricle : The right ventricle is normal size. The right ventricular systolic function is norm al. Atria : The left atrium size is normal. The right atrium size is normal. Aortic Valve : The aortic valve is not well visualized but is probably tricuspid. No aortic regurgita tion is present. There is no aortic valvular stenosis. Mitral Valve : The mitral valve is normal in structure. There is no mitral valve regurgitation noted. No evidence of mitral valve stenosis. Tricuspid Valve : The tricuspid valve is normal in structure. Great Vessels : IVC appears normal in size and collapses >50% with inspiration. Estimated RVSP is 37 -40 mmHg. Pericardium : small anterior pericardial effusion. There are no prior echocardiographic images available for comparison. Wall motion Left Ventricle The left ventricle is normal. The left ventricular systolic function is normal. The posterior wall th ickness is normal. The septum is normal. There is normal LV segmental wall motion. There is septal fl attening suggestive of RV pressure overload LV diastolic function is indeterminate. LVEF is estimated to be 55-60%. Right Ventricle The right ventricle is normal size. The right ventricular systolic function is normal. Atria The left atrium size is normal. The right atrium size is normal. Aortic Valve The aortic valve is not well visualized but is probably tricuspid. There is no aortic valvular stenos is. No aortic regurgitation is present. Mitral Valve The mitral valve is normal in structure. No evidence of mitral valve stenosis. There is no mitral adriano ve regurgitation noted. Tricuspid Valve The tricuspid valve is normal in structure. Trivial tricuspid regurgitation. Pulmonic Valve Pulmonic valve is not well visualized. Great Vessels The aortic root is normal in size. IVC appears normal in size and collapses >50% with inspiration. Es timated RVSP is 37-40 mmHg. Pericardium small anterior pericardial effusion. 2D Dimensions IVSd 0.85 cm M: 0.6-1.2 LV EDV A4C 102.50 mL PWd 0.90 cm M: 0.6 - 1.2 LA Volume Index A4C 16.80 mL/m2 LVDd 5.15 cm M: 4.2 - 5.8 LA Area A4C 12.65 cm2 LVDs 3.25 cm M: 2.5 - 4.0 EF AP4 61.37 % RA Area A4C 12.70 cm2 LVOT 2.35 cm (M/F) 1.5-2.5 Ascending Aorta 3.85 cm M: 2.6 - 3.4 LVEF (Teich) 65.91 % LV Volume Index 55.60 mL/m2 M: 34 - 74 FS 36.50 % LV Diastology E/A Ratio 0.9 MED E' 0.08 (>0.07 m/s) LV E/e MED 6.70 (<14) Aortic Valve LVOT Area 4.38 cm2 LVOT Peak Faisal. 0.85 m/s LVOT Mean Faisal. 0.77 m/s LVOT Peak Gr. 3.20 mmHg LVOT Mean Gr. 2.40 mmHg LVOT VTI 0.15 m Mitral Valve MV E Max Faisal. 0.56 (0.4-1.3 m/s) MV A Velocity 0.65 (0.4-1.3 m/s) E/A Ratio 0.83 Pulmonary Valve PV Peak Velocity 1.20 (0.5-1.5 m/s) Tricuspid Valve TR P. Velocity 3.06 m/s TV Regurg Vmax 3.06 m/s RAP Estimate 3.00 mmHg RVSP 40.50 mmHg TR P. Gradient 37.50 mmHg
[2019-06-01] MEDS: Normal Saline Flush 10 ML SYR ×2 (13:35→19:27)
[2019-06-01 13:47] LABS: Troponin I < 0.05 ng/Ml (<0.06)
--- NOTE | 2019-06-01 13:53 | PHARADMIT ---
Addendum entered by Katia Viramontes 06/05/19 11:49: Pharmacy Note Subjective Objective VS ok, afebrile,labs/lytes good, weight same, BG 125 Micro sputum and blood normal growth Assessment Levaquin day 4 of 5 Added plain Atrovent via nebs to regimen rate controlled on Digoxin and Diltiazem Plan discharge soon Addendum entered by Martha Trent 06/04/19 12:12: Pharmacy Note Subjective pt feels better, talk of possible palliative consult Objective HR-102 other VS okay wbc-11.06(down) Assessment levofloxacin continues (day 3, stop date added to med order) methylprednisolone changed to PO prednisone starting tomorrow Plan continue to watch VS, labs and for med changes Addendum entered by Martha Trent 06/03/19 13:59: Pharmacy Note Subjective Objective BP-162/92 HR-98 other VS okay WBC-13.88(down) Assessment diltiazem IR added for two doses today, CR dose increased starting tomorrow one time dose of IV furosemide given PO mag replacement given IV fluids discontinued levofloxacin continues (day2) Plan continue to watch VS, labs, micro and for med changes (wean steroid, changing abx from iv to PO) Addendum entered by Katia Viramontes 06/02/19 11:50: Pharmacy Note Subjective Converted with Digoxin load Objective Temp 38.7 @ 0300, BP 152/91, HR 98, WBC up 20.66 Micro blood: pending drawn 06/02/19 (2nd set) Assessment Solumedrol decreased, on Budesonide Pt's own Trelegy inhaler not avail at this time. RT working on finding an alternative, pt never filled outpt Rx, couldn't afford it Per MD, pt has an exaggerated elevated white count due to steroid use Xopenex 0.63mg changed to Q4h while awake Started oral Digoxin today, Diltiazem infusion dc'd-on oral started IV Levaquin although Chest xray is negative Plan watch for steroid taper and IV to oral MD will draw Digoxin level in a day or two Anticoagulation for Afib contraindicated due to Hx of IC bleed Follow Anbx course Original Note: Admission Pharmacy Clinical Review COPD EXACERBATION Code Status Full Code Current Weight 73.5 kg Renally Cleared and Narrow Therapeutic Index Meds CrCl~94ml/min QTc Value / Action Taken QTC 388 BP Control, Fever BP 119/99 HR>100 Afebrile Electrolytes reviewed K+ 3.8 Mag 1.7 DVT Prophylaxis ASA 325mg (Hx of IC bleed-no anticoagulation) Opiate Usage / Scheduled Bowel Regimen Ordered none/yes bowel meds Plt/SCr for Heparin / Enoxaparin Plt 359 SCr 0.56 INR for Warfarin H/H stable, WBC/Bands H/H 11.9/39.2 WBC 17.07 (IV steroids) Antibiotic appropriateness May add Anbx coverage Cultures and Sensitivities blood pending, Procalcitonin 0.1, Lactate down from 3.6 to 0.8 Surgical ABX d/c within 24 hr DM control / Insulin Dosing BG 127 Heart Failure (Check EF%) (MEL's, B-Block, Diuretics) Diltiazem infusion being titrated and starting Diltiazem CD Digoxin loading not the usual dose. Can be loaded in two different ways-see below Lean body weight is ~ 60kg, dose would be 480-720mcg/day which is what was using as a reference. Pt received 250 mcg IV@ 5am, 250mcg IV @ 9am, getting 250mcg IV @ 3pm for total dose of 750mcg followed by 0.125mg orally starting tomorrow. had initially entered as 0.25mg IV Q4h x 4 doses but that was changed Total digitalizing dose (TDD): Initial: IV: 0.25 to 0.5 mg over several minutes, with repeat doses of 0.25 mg every 6 hours to a maximum of 1.5 mg over 24 hours (AHA/ACC/HRS [July 2013]; Arnoldo 2018) or IV: A total of 8 to 12 mcg/kg (use lean body weight) (not to exceed 0.75 to 1.5 mg) administered by giving 50% of TDD over 5 minutes and the remaining 50% as 2 doses of 25% of TDD at 4- to 8-hour intervals after the initial dose (ACLS [Gerald 2010]). Note: follow either of these TDD regimens with an oral maintenance regimen (Arnoldo 2018). Maintenance dose: Oral: 0.125 to 0.25 mg once daily IV to PO Switch steroids Home Meds Reviewed Pt's own Trelegy...not avail at this time, RT aware Home Meds Not Ordered ok Comments troponin negative Echo today
--- NOTE | 2019-06-01 15:03 | PGE_ITS ---
Date of Service Date of service: 06/01/19 Time of Service: 15:03 Assessment and Plan Assessment and plan (1) New onset a-fib: Status: Acute Assessment and plan: New onset Afib in setting of severe underlying pulmonary disease, hypoxia, and administration of high dose steroids and nebulized b-agonist. - ECHO checked and essentially unremarkable. - Would avoid BB given severity of lung disease. Continue oral Cardizem. - Responded to Dig load - will continue digoxin daily, and discontinue Cardizem gtt. - Is not a good candidate for anticoagulation - has a history of intracranial bleed that he verbally reports as spontaneous in nature and involving an aneurysm. Records unavailable. Patient seems to have responded to Digoxin, which is not optimal but likely best option at this time. Discussed with cardiology who agrees with this course of action. Also may consider amiodarone if needed, but currently remains in sinus. Will continue to monitor on telemetry. (2) Acute exacerbation of chronic obstructive pulmonary disease (COPD): Status: Acute Assessment and plan: Chronic Hypercapneic and Hypoxic Respiratory Failure, as witnessed by prior ABG and chronic O2 need. PFTs obtained in January show significant dysfunction, with an FEV1 of 0.54 and FEV1/FVC of 32. He has multiple ED visits and admissions. Current exacerbation may be on the basis of O2 equipment malfunction at home. - Continue Pulmicort, Daliresp, standing Duoneb with prn albuterol. - Continue high dose IV Steroids, with expected exaggerated WBC response steroid therapy. - Continue NIV therapy with either BiPAP or Trilogy through hospitalization. - Has received antibiotic therapy in the past, including 3 months ago with Pip- Robbin and Levofloxacin for growth of pseudomonas in sputum, without evidence of pneumonia by imaging - please note that the patient's condition did not improve significantly until the addition of antibiotics in the past. However, also with evidence of C.Diff positivity by PCR in March. Current Xray negative, patient afebrile, and minimal/chronic leukocytosis. Procalcitonin only at 0.1. Plan on monitoring symptoms closely, but hold off on antibiotics for now. Patient had worsening lactate which was likely related to tachycardia and hypoxia, and not infectious - resolved with Initiated IVFs and now rate control. Monitor. (3) Hypertension: Status: Chronic Assessment and plan: Continue Diltiazem. (4) GERD (gastroesophageal reflux disease): Status: Chronic Assessment and plan: Continue PPI therapy. (5) DVT prophylaxis: Status: Acute Assessment and plan: Maintain on SCDs and TEDs given history of IC Bleed. (6) Advance directive on file: Status: Acute Assessment and plan: Full Code. Subjective Subjective Interval history since last seen: 64 year old man with a prior history of Oxygen dependent COPD, admitted from [facility] Emergency Department on 05/31 with a diagnosis of acute COPD Exacerbation. Mr. 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 He also has a history of CAD with prior VT, TIA, and Cerebellar Hemorrhage with resultant speech impediment. He has had exaggerated WBC response to steroid administration in the past. The patient has been admitted here in the past and treated for COPD exacerbation, with Pseudomonas on Sputum cultures. He has also in the past failed to progress well despite optimal treatment, with recurrent growth of Pseudomonas again in his sputum and with repeat negative CXR, with improvement once initiated on Antibiotic therapy with pseudomonas coverage. Of note, there is also evidence of C.Diff + by PCR in early March of this year, specifically following administration of the above antibiotic therapy. The patient presented to the ED with reported 3 day history of worsening dyspnea, complaining of malfunctioning Trilogy system at home which pe r respiratory therapy evaluation appears to be a malfunctioning concentrator. Labwork was fairly unremarkable and consisted of a minimal leukocytosis, unchanged blood gas showing hypercapnea and hypoxia, and normal renal function. CXR showed no acute abnormality. However, Lactate was elevated and worsened to 3.6 on repeat check, and patient was noted to be persistently tachycardic. He was referred for admission for further evaluation and treatment. Following admission Mr. Alston developed a new onset of Afib overnight, with rates that were difficult to control despite administration of IV Pushes of Cardizem, and eventually cardizem gtt that was maxed. BB therapy was considered but not administered given severity and acuity of patient's COPD exacerbation. He was eventually loaded with Digoxin, and by late this morning he converted to sinus rhythm. ECHO checked and with normal LV Function, normal RV function, normal atrial size, and no significant valvular disease - PHTN with RVSP of 40. The patient reports that his breathing has improved since time of admission. No other events reported. Remains afebrile. Exam Narrative Exam Narrative: General: Patient appears chronically ill, AAOX3, NAD. Impaired speech noted and unchanged. Neck: Supple CV: Original irregular, sinus at time of repeat exam, nontachycardic, S1S2. Pulmonary: Significantly diminished breath sounds with vast improvement in diffuse wheezing Abdomen: + Bowel Sounds, soft, nontender, nondistended Vascular: No lower extremity edema Psych: Normal mood and affect. Objective Objective Clinical Data: Abnormal lab results 06/01/19 06/01/19 Range/Units 05:10 05:10 WBC 17.07 H D (4.4-10.8) k/cumm Hgb 11.9 L (13.5-17.5) g/dL Hct 39.2 L (40.0-50.0) % MCH 25.1 L (27.0-33.0) pg MCHC 30.4 L (32.0-36.0) g/dL RDW 15.7 H (11.8-14.1) % Absolute Neutrophils 15.88 H (1.2-6.7) k/cumm Absolute Lymphocytes 0.87 L (1.2-3.4) k/cumm Creatinine 0.56 L (0.70-1.30) mg/dL Glucose 127 H (74-106) mg/dL Magnesium 1.7 L (1.8-2.4) mg/dL Vital Signs Temperature 36.6 C 06/01/19 12:45 Temperature Source Temporal Artery Scan 06/01/19 08:02 Pulse 90 06/01/19 14:58 Pulse 86 06/01/19 14:20 Respiratory Rate 22 06/01/19 14:58 Respiratory Effort Labored 06/01/19 14:42 Respiratory Depth Deep 06/01/19 14:42 Respiratory Pattern Normal 06/01/19 14:42 Blood Pressure 126/69 06/01/19 12:02 Blood Pressure Mean 83 06/01/19 12:02 Blood Pressure Position Sitting 06/01/19 05:24 Pulse Oximetry 94 L 06/01/19 14:58 Oxygen Delivery Method Nasal Cannula 06/01/19 14:47 Oxygen Flow Rate 2 06/01/19 14:47 Fraction of Inspired Oxygen (FIO2) 28 05/31/19 10:14 Pain Level 0 06/01/19 12:45 Intake & Output 05/31/19 06/01/19 06/01/19 23:59 11:59 23:59 Intake Total 910 / 1910 1477.417 / 1817.417 340 / 1817.417 Output Total 600 / 600 1000 / 1300 300 / 1300 Balance 310 / 1310 477.417 / 517.417 40 / 517.417 Weight 69.8 kg 73.5 kg Intake: IV 20 / 1020 1077.417 / 1177.417 100 / 1177.417 Oral 890 / 890 400 / 640 240 / 640 Output: Urine 600 / 600 1000 / 1300 300 / 1300 Other: Urine Color Light Elly Pale Pale Yellow Urine Appearance Clear Clear Clear Urine Odor Strong Strong Comment voids in urinal Void to urinal independently 100cc pale yellow urine. Continues to void to urinal independently 100cc's at a time. Stool Occult Blood Negative Negative Stool Size Moderate Large Stool Characteristics Soft Soft Formed Formed Brown Voiding Methods Urinal Urinal Urinal Laboratory Results WBC 17.07 k/cumm (4.4-10.8) H D 06/01/19 05:10 RBC 4.75 m/cumm (4.50-6.00) 06/01/19 05:10 Hgb 11.9 g/dL (13.5-17.5) L 06/01/19 05:10 Hct 39.2 % (40.0-50.0) L 06/01/19 05:10 MCV 82.5 fL (80-95) 06/01/19 05:10 MCH 25.1 pg (27.0-33.0) L 06/01/19 05:10 MCHC 30.4 g/dL (32.0-36.0) L 06/01/19 05:10 RDW 15.7 % (11.8-14.1) H 06/01/19 05:10 Plt Count 359 x1000/uL (130-400) 06/01/19 05:10 MPV 9.4 fL (8.0-11.0) 06/01/19 05:10 Immature Gran % 0.2 06/01/19 05:10 Neutrophils % 93.0 06/01/19 05:10 Lymphocytes % 5.1 06/01/19 05:10 Monocytes % 1.6 06/01/19 05:10 Eosinophils % 0.0 06/01/19 05:10 Basophils % 0.1 06/01/19 05:10 Absolute Neutrophils 15.88 k/cumm (1.2-6.7) H 06/01/19 05:10 Absolute Lymphocytes 0.87 k/cumm (1.2-3.4) L 06/01/19 05:10 Absolute Monocytes 0.27 k/cumm (0.11-0.7) 06/01/19 05:10 Absolute Eosinophils 0.00 k/cumm (0.0-0.7) 06/01/19 05:10 Absolute Basophils 0.02 k/cumm (0.0-0.2) 06/01/19 05:10 VBG pH 7.30 (7.32-7.43) L 05/31/19 08:50 VBG pCO2 73 mm/Hg (34-47) H 05/31/19 08:50 VBG pO2 45 mm/Hg (28-44) H 05/31/19 08:50 VBG HCO3 36 mmol/L (22-28) H 05/31/19 08:50 VBG Total CO2 33 mmol/L (22-29) H 05/31/19 08:50 VBG O2 Saturation 76 % (70-80) 05/31/19 08:50 VBG Base Excess 9.8 mmol/L (-3-3) H 05/31/19 08:50 Sodium 143 mmol/L (136-145) 06/01/19 05:10 Potassium 3.8 mmol/L (3.5-5.1) 06/01/19 05:10 Chloride 105 mmol/L (98-107) 06/01/19 05:10 Carbon Dioxide 30.1 mmol/L (21.0-32.0) 06/01/19 05:10 Anion Gap 7.9 mmol/L (3-11) 06/01/19 05:10 BUN 17 mg/dL (7-18) 06/01/19 05:10 Creatinine 0.56 mg/dL (0.70-1.30) L 06/01/19 05:10 Estimated GFR/1.73 m2 >= 60.00 (mL/min/1.73m2) 06/01/19 05:10 Glucose 127 mg/dL (74-106) H 06/01/19 05:10 Lactate 0.8 mmol/L (0.6-1.4) 06/01/19 05:10 Calcium 8.8 mg/dL (8.5-10.1) 06/01/19 05:10 Magnesium 1.7 mg/dL (1.8-2.4) L 06/01/19 05:10 Total Bilirubin 0.1 mg/dL (0.2-1.0) L 05/31/19 08:50 AST 12 U/L (15-37) L 05/31/19 08:50 ALT 21 U/L (16-63) 05/31/19 08:50 Alkaline Phosphatase 122 U/L (46-116) H 05/31/19 08:50 Troponin I < 0.05 ng/Ml (<0.06) 06/01/19 13:12 Total Protein 7.5 g/dL (6.4-8.2) 05/31/19 08:50 Albumin 3.9 g/dL (3.4-5.0) 05/31/19 08:50 Procalcitonin 0.1 ng/mL 05/31/19 08:50
--- NOTE | 2019-06-01 18:26 | NUR.NOTE ---
pt and family member Lesly state that pt no longer takes many meds on his home med list including trelegy and pulmicort. Both pt and Lesly state that he only gets meds from [facility]. agreed to call and verify current meds [facility] [phone] reports pt ONLY fills: Prilosec 20daily Cardizem CD 180 Proair Albuteral for Nebulizer Symbicort BID Spiriva 18mcg daily pt and Lesly confirm these are his current meds
[2019-06-01] MEDS: Normal Saline 1,000 ML 75 ML IV (21:30)
[2019-06-02] VITALS (63 sets, daily range): BP systolic 131–187; BP diastolic 71–107; PULSE 52–116; RESP 2–30; TEMP 36.5–38.7; O2SAT 84–99
[2019-06-02] MEDS: methylPREDNISolone SUCC 125 MG VIAL 60 MG IVP ×2 (03:12→09:13)
[2019-06-02] MEDS: Normal Saline Flush 10 ML SYR IVP ×2 (03:16→18:07)
[2019-06-02] MEDS: Levalbuterol 1.25 MG/3 ML UPD VIAL UPD ×3 (04:37→09:47)
[2019-06-02] MEDS: Omeprazole 20 MG CAPCR PO (06:55)
[2019-06-02 07:09] LABS: Abs Immature Grans 0.06 k/cumm (0.0-0.09); Absolute Lymphocyte Count 0.95 k/cumm (1.2-3.4); Absolute Monocyte Count 0.48 k/cumm (0.11-0.7); HCT 38.9 % (40.0-50.0); HGB 11.6 g/dL (13.5-17.5); Immature Grans % 0.3; Lymphocytes % 4.6; Mean Corp. HGB Concentration 29.8 g/dL (32.0-36.0); Mean Corpuscular Hemoglobin 24.9 pg (27.0-33.0); Mean Corpuscular Volume 83.7 fL (80-95); Mean Platelet Volume 9.6 fL (8.0-11.0); Monocytes % 2.3; Neutrophils % 92.8; Platelet Count 385 x1000/uL (130-400); RBC 4.65 m/cumm (4.50-6.00); White Blood Cell Count 20.66 k/cumm (4.4-10.8)
[2019-06-02 07:12] LABS: Absolute Neutrophil Count 19.17 k/cumm (1.2-6.7)
[2019-06-02 07:14] LABS: Anion Gap 3.3 mmol/L (3-11); BUN 16 mg/dL (7-18); CO2 34.7 mmol/L (21.0-32.0); CREATININE 0.53 mg/dL (0.70-1.30); Calcium 8.9 mg/dL (8.5-10.1); Chloride 105 mmol/L (98-107); Glucose 125 mg/dL (74-106); Magnesium 1.9 mg/dL (1.8-2.4); Potassium 4.3 mmol/L (3.5-5.1); Sodium 143 mmol/L (136-145)
[2019-06-02] MEDS: Budesonide 0.5 MG/2 ML UPD VIAL UPD ×2 (07:54→21:22)
[2019-06-02] MEDS: Roflumilast 500 MCG TAB PO (09:12)
[2019-06-02] MEDS: guaiFENesin 600 MG TABCR PO ×2 (09:12→20:23)
[2019-06-02] MEDS: Digoxin 0.125 MG TAB PO (09:13)
[2019-06-02] MEDS: Lactobacillus Acidophilus CAP 1 CAP PO ×3 (09:13→20:23)
[2019-06-02] MEDS: Folic Acid 1 MG TAB PO (09:13)
[2019-06-02] MEDS: Aspirin 325 MG TAB PO (09:13)
[2019-06-02] MEDS: dilTIAZem CD 180 MG CAPCR PO (09:13)
--- NOTE | 2019-06-02 09:41 | RESPIRATORY ---
Patient's medication Trelegy is not available to dispense. It is a home medication that the pt states he never filled the prescription for because his insurance did not cover it and he could not afford it.
[2019-06-02] MEDS: levoFLOXacin 750 MG/150 ML BAG 100 MG IVPB (10:08)
[2019-06-02] MEDS: Magnesium Oxide 400 MG TAB PO (10:21)
--- NOTE | 2019-06-02 11:13 | DI.RAD_ITS ---
EXAM: XR PORTABLE CHEST AP CLINICAL HISTORY: Fever, COPD TECHNIQUE: COMPARISON: XR PORTABLE CHEST AP from 05/31/2019 FINDINGS: The heart is not enlarged. There appear to be changes of COPD with scattered pulmonary scarring and some flattening of the diaphragm bilaterally. No focal consolidation seen. IMPRESSION: No evidence of acute process.
[2019-06-02] MEDS: Levalbuterol 0.63 MG/3 ML UPD VIAL UPD ×3 (11:30→20:38)
--- NOTE | 2019-06-02 11:42 | W.PM.PROGNOT ---
Date of Service Date of service: 06/02/19 Time of Service: 11:43 Assessment and Plan Assessment and plan (1) New onset a-fib: Status: Acute Assessment and plan: New onset Afib in setting of severe underlying pulmonary disease, hypoxia, and administration of high dose steroids and nebulized b-agonist. - ECHO checked and essentially unremarkable. - Changed Duoneb and prn albuterol to Levalbuterol. - Would avoid BB given severity of lung disease. Continue oral Cardizem. - Responded to Dig load - will continue digoxin daily, and discontinue Cardizem gtt. - Is not a good candidate for anticoagulation - has a history of intracranial bleed that he verbally reports as spontaneous in nature and involving an aneurysm. Records unavailable. Patient seems to have responded to Digoxin, which is not optimal but likely best option at this time. Discussed with cardiology who agrees with this course of action. Also may consider amiodarone if needed, but currently remains in sinus. Will continue to monitor on telemetry. (2) Acute exacerbation of chronic obstructive pulmonary disease (COPD): Status: Acute Assessment and plan: Chronic Hypercapneic and Hypoxic Respiratory Failure, as witnessed by prior ABG and chronic O2 need. PFTs obtained in January show significant dysfunction, with an FEV1 of 0.54 and FEV1/FVC of 32. He has multiple ED visits and admissions. Current exacerbation may be on the basis of O2 equipment malfunction at home. - Continue Pulmicort, Daliresp, standing low dose and prn levalbuterol. - Continue high dose IV Steroids, with expected exaggerated WBC response steroid therapy. Decrease dose slightly today - Continue NIV therapy with either BiPAP or Trilogy through hospitalization. - Has received antibiotic therapy in the past, including 3 months ago with Pip-Robbin and Levofloxacin for growth of pseudomonas in sputum without evidence of pneumonia by imaging - please note that the patient's condition did not improve significantly until the addition of antibiotics in the past. However, also with evidence of C.Diff positivity by PCR in March. Current Xray negative, patient was initially afebrile, and minimal/chronic leukocytosis. Procalcitonin only at 0.1. However, with development of a fever overnight of 38.7 - will check sputum and blood cultures, u/a, and repeat CXR. Will also initiate Abx therapy with Levofloxacin at this time, and monitor result of testing. (3) Hypertension: Status: Chronic Assessment and plan: Continue Diltiazem. (4) GERD (gastroesophageal reflux disease): Status: Chronic Assessment and plan: Continue PPI therapy. (5) DVT prophylaxis: Status: Acute Assessment and plan: Maintain on SCDs and TEDs given history of IC Bleed. (6) Advance directive on file: Status: Acute Assessment and plan: Full Code. Subjective Subjective Interval history since last seen: 64 year old man with a prior history of Oxygen dependent COPD, admitted from [facility] Emergency Department on 05/31 with a diagnosis of acute COPD Exacerbation. Mr. 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 He also has a history of CAD with prior [place], TIA, and Cerebellar Hemorrhage with resultant speech impediment. He has had exaggerated WBC response to steroid administration in the past. The patient has been admitted here in the past and treated for COPD exacerbation, with Pseudomonas on Sputum cultures. He has also in the past failed to progress well despite optimal treatment, with recurrent growth of Pseudomonas again in his sputum and with repeat negative CXR, with improvement once initiated on Antibiotic therapy with pseudomonas coverage. Of note, there is also evidence of C.Diff + by PCR in early March of this year, specifically following administration of the above antibiotic therapy. The patient presented to the ED with reported 3 day history of worsening dyspnea, complaining of malfunctioning Trilogy system at home which per respiratory therapy evaluation appears to be a malfunctioning concentrator. Labwork was fairly unremarkable and consisted of a minimal leukocytosis, unchanged blood gas showing hypercapnea and hypoxia, and normal renal function. CXR showed no acute abnormality. However, Lactate was elevated and worsened to 3.6 on repeat check, and patient was noted to be persistently tachycardic. He was referred for admission for further evaluation and treatment. Following admission Mr. Alston developed a new onset of Afib overnight on 06/01, with rates that were difficult to control despite administration of IV Pushes of Cardizem, and eventually cardizem gtt that was maxed. BB therapy was considered but not administered given severity and acuity of patient's COPD exacerbation. He was eventually loaded with Digoxin, and by late that morning he converted to sinus rhythm. ECHO checked and with normal LV Function, normal RV function, normal atrial size, and no significant valvular disease - PHTN with RVSP of 40 were also noted. The patient reports that his breathing is unchanged since yesterday, and has required near constant NIPPV. He also had a recorded fever overnight. No other events reported. Remains afebrile. Exam Narrative Exam Narrative: General: Patient appears chronically ill, AAOX3, NAD. Impaired speech noted and unchanged. Neck: Supple CV: Regular and borderline tachy this morning.S1S2. No overt r/m/g. Pulmonary: Significantly diminished breath sounds with vast improvement in diffuse wheezing. Abdomen: + Bowel Sounds, soft, nontender, nondistended Vascular: No lower extremity edema Psych: Normal mood and affect. Objective Objective Clinical Data: Abnormal lab results 06/02/19 06/02/19 Range/Units 06:00 06:00 WBC 20.66 H (4.4-10.8) k/cumm Hgb 11.6 L (13.5-17.5) g/dL Hct 38.9 L (40.0-50.0) % MCH 24.9 L (27.0-33.0) pg MCHC 29.8 L (32.0-36.0) g/dL RDW 16.0 H (11.8-14.1) % Absolute Neutrophils 19.17 H (1.2-6.7) k/cumm Absolute Lymphocytes 0.95 L (1.2-3.4) k/cumm Carbon Dioxide 34.7 H (21.0-32.0) mmol/L Creatinine 0.53 L (0.70-1.30) mg/dL Glucose 125 H (74-106) mg/dL Vital Signs Temperature 38.7 C H 06/02/19 03:15 Temperature Source Temporal Artery Scan 06/02/19 00:14 Pulse 98 H 06/02/19 11:35 Pulse 66 06/02/19 06:00 Respiratory Rate 24 06/02/19 11:35 Respiratory Effort 06/02/19 08:07 Respiratory Depth Normal 06/02/19 08:07 Respiratory Pattern Normal 06/02/19 08:07 Blood Pressure 152/91 H 06/02/19 06:00 Blood Pressure Mean 104 06/02/19 06:00 Blood Pressure Position Supine 06/01/19 23:45 Pulse Oximetry 98 06/02/19 11:35 Oxygen Delivery Method Nasal Cannula 06/02/19 11:30 Oxygen Flow Rate 2 06/02/19 11:30 Fraction of Inspired Oxygen (FIO2) 28 05/31/19 10:14 Pain Level 0 06/02/19 03:15 Intake & Output 06/01/19 06/01/19 06/02/19 11:59 23:59 11:59 Intake Total 1477.417 / 3347.584 1870.167 / 3347.584 240 / 240 Output Total 1000 / 2200 1200 / 2200 600 / 600 Balance 477.417 / 1147.584 670.167 / 1147.584 -360 / -360 Weight 73.5 kg 72.1 kg Intake: IV 1077.417 / 2167.584 1090.167 / 2167.584 Oral 400 / 1180 780 / 1180 240 / 240 Output: Urine 1000 / 2200 1200 / 2200 600 / 600 Other: Urine Color Pale Yellow Pale Yellow Urine Appearance Clear Clear Clear Urine Odor Strong Normal Comment Void to urinal independently 100cc pale yellow urine. Continues to void small amounts to urinal independently Continues to void small amounts to urinal independently Stool Occult Blood Negative Stool Size Large Stool Characteristics Soft Formed Voiding Methods Urinal Urinal Urinal Laboratory Results WBC 20.66 k/cumm (4.4-10.8) H 06/02/19 06:00 RBC 4.65 m/cumm (4.50-6.00) 06/02/19 06:00 Hgb 11.6 g/dL (13.5-17.5) L 06/02/19 06:00 Hct 38.9 % (40.0-50.0) L 06/02/19 06:00 MCV 83.7 fL (80-95) 06/02/19 06:00 MCH 24.9 pg (27.0-33.0) L 06/02/19 06:00 MCHC 29.8 g/dL (32.0-36.0) L 06/02/19 06:00 RDW 16.0 % (11.8-14.1) H 06/02/19 06:00 Plt Count 385 x1000/uL (130-400) 06/02/19 06:00 MPV 9.6 fL (8.0-11.0) 06/02/19 06:00 Immature Gran % 0.3 06/02/19 06:00 Neutrophils % 92.8 06/02/19 06:00 Lymphocytes % 4.6 06/02/19 06:00 Monocytes % 2.3 06/02/19 06:00 Eosinophils % 0.0 06/02/19 06:00 Basophils % 0.0 06/02/19 06:00 Absolute Neutrophils 19.17 k/cumm (1.2-6.7) H 06/02/19 06:00 Absolute Lymphocytes 0.95 k/cumm (1.2-3.4) L 06/02/19 06:00 Absolute Monocytes 0.48 k/cumm (0.11-0.7) 06/02/19 06:00 Absolute Eosinophils 0.00 k/cumm (0.0-0.7) 06/02/19 06:00 Absolute Basophils 0.00 k/cumm (0.0-0.2) 06/02/19 06:00 VBG pH 7.30 (7.32-7.43) L 05/31/19 08:50 VBG pCO2 73 mm/Hg (34-47) H 05/31/19 08:50 VBG pO2 45 mm/Hg (28-44) H 05/31/19 08:50 VBG HCO3 36 mmol/L (22-28) H 05/31/19 08:50 VBG Total CO2 33 mmol/L (22-29) H 05/31/19 08:50 VBG O2 Saturation 76 % (70-80) 05/31/19 08:50 VBG Base Excess 9.8 mmol/L (-3-3) H 05/31/19 08:50 Sodium 143 mmol/L (136-145) 06/02/19 06:00 Potassium 4.3 mmol/L (3.5-5.1) 06/02/19 06:00 Chloride 105 mmol/L (98-107) 06/02/19 06:00 Carbon Dioxide 34.7 mmol/L (21.0-32.0) H 06/02/19 06:00 Anion Gap 3.3 mmol/L (3-11) 06/02/19 06:00 BUN 16 mg/dL (7-18) 06/02/19 06:00 Creatinine 0.53 mg/dL (0.70-1.30) L 06/02/19 06:00 Estimated GFR/1.73 m2 >= 60.00 (mL/min/1.73m2) 06/02/19 06:00 Glucose 125 mg/dL (74-106) H 06/02/19 06:00 Lactate 0.8 mmol/L (0.6-1.4) 06/01/19 05:10 Calcium 8.9 mg/dL (8.5-10.1) 06/02/19 06:00 Magnesium 1.9 mg/dL (1.8-2.4) 06/02/19 06:00 Total Bilirubin 0.1 mg/dL (0.2-1.0) L 05/31/19 08:50 AST 12 U/L (15-37) L 05/31/19 08:50 ALT 21 U/L (16-63) 05/31/19 08:50 Alkaline Phosphatase 122 U/L (46-116) H 05/31/19 08:50 Troponin I < 0.05 ng/Ml (<0.06) 06/01/19 13:12 Total Protein 7.5 g/dL (6.4-8.2) 05/31/19 08:50 Albumin 3.9 g/dL (3.4-5.0) 05/31/19 08:50 Procalcitonin 0.1 ng/mL 05/31/19 08:50
[2019-06-02] MEDS: Normal Saline 1,000 ML 75 ML IV (13:35)
[2019-06-02] MEDS: LORazepam 2 MG/ML VIAL 1 MG IVP (14:27)
--- NOTE | 2019-06-02 17:19 | CMPROGNOTE_ITS ---
- If Service Date Differs Date of service: 06/02/19 Time of Service: 17:19 Care Management Progress Note S/O: Dave was sitting up in bed when CM came to see him. His breathing was visibly labored and he was using his Trilogy device. Concern was raised about a statement Dave made about not being able to afford his medications, specifically one of his inhalers (Trelogy). CM contacted Dave's former pharmacy in [place] as well as his HH employment evaluator/case manager Nichelle Cordon. Apparently the specific medication refer enced required prior authorization from [place] [employer] and it was never received. 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 The hospitalist assigned to Dave's case today stated that he can prescribe a different, less regulated inhaler at discharge. CM also coordinated the completion of [facility] [place] [facility] AD forms for Dave and distributed copies to appropriate agencies/people. A: Dave is a 64 year old man admitted to [facility] on 05/31/19 with COPD exacerbation. P: Dave will be discharged to his ex-'s home where he has been living for the past few months. He will follow up with his new PCP on 06/24/19 at 11:15 am at [facility]. He will need new HH services for nursing and possibly PT. CM will continue to support patient, family and discharge planning needs.
[2019-06-02] MEDS: methylPREDNISolone SUCC 40 MG VIAL IVP (18:06)
[2019-06-03] VITALS (50 sets, daily range): BP systolic 128–179; BP diastolic 77–118; PULSE 65–117; RESP 2–29; TEMP 36.7–37.1; O2SAT 91–98
[2019-06-03] MEDS: methylPREDNISolone SUCC 40 MG VIAL IVP ×3 (01:11→18:19)
[2019-06-03] MEDS: Normal Saline 1,000 ML 75 ML IV (02:56)
[2019-06-03] MEDS: Levalbuterol 0.63 MG/3 ML UPD VIAL UPD ×5 (02:56→20:01)
[2019-06-03] MEDS: Docusate Sodium 100 MG CAP PO (05:27)
[2019-06-03 06:45] LABS: Abs Immature Grans 0.05 k/cumm (0.0-0.09); Absolute Lymphocyte Count 0.86 k/cumm (1.2-3.4); HCT 39.2 % (40.0-50.0); Immature Grans % 0.4; Lymphocytes % 6.2; Mean Corp. HGB Concentration 30.6 g/dL (32.0-36.0); Mean Corpuscular Hemoglobin 25.3 pg (27.0-33.0); Mean Corpuscular Volume 82.7 fL (80-95); Mean Platelet Volume 9.5 fL (8.0-11.0); Monocytes % 3.5; Neutrophils % 89.9; Platelet Count 385 x1000/uL (130-400); RBC 4.74 m/cumm (4.50-6.00); RBC Distribution Width 15.7 % (11.8-14.1); White Blood Cell Count 13.88 k/cumm (4.4-10.8)
[2019-06-03 06:54] LABS: Anion Gap 5.6 mmol/L (3-11); BUN 15 mg/dL (7-18); CO2 32.4 mmol/L (21.0-32.0); CREATININE 0.49 mg/dL (0.70-1.30); Calcium 8.5 mg/dL (8.5-10.1); Chloride 104 mmol/L (98-107); Glucose 117 mg/dL (74-106); Magnesium 1.9 mg/dL (1.8-2.4); Sodium 142 mmol/L (136-145)
[2019-06-03 06:58] LABS: Absolute Monocyte Count 0.49 k/cumm (0.11-0.7); Absolute Neutrophil Count 12.48 k/cumm (1.2-6.7)
[2019-06-03] MEDS: Budesonide 0.5 MG/2 ML UPD VIAL UPD ×2 (08:29→20:50)
[2019-06-03] MEDS: Aspirin 325 MG TAB PO (08:40)
[2019-06-03] MEDS: Folic Acid 1 MG TAB PO (08:40)
[2019-06-03] MEDS: Digoxin 0.125 MG TAB PO (08:40)
[2019-06-03] MEDS: guaiFENesin 600 MG TABCR PO ×2 (08:40→19:57)
[2019-06-03] MEDS: Lactobacillus Acidophilus CAP 1 CAP PO ×3 (08:40→19:57)
[2019-06-03] MEDS: dilTIAZem CD 180 MG CAPCR PO (08:41)
[2019-06-03] MEDS: Omeprazole 20 MG CAPCR PO (08:41)
[2019-06-03] MEDS: Roflumilast 500 MCG TAB PO (08:41)
[2019-06-03] MEDS: Magnesium Oxide 400 MG TAB PO (08:44)
[2019-06-03] MEDS: levoFLOXacin 750 MG/150 ML BAG 100 MG IVPB (09:50)
[2019-06-03] MEDS: Normal Saline Flush 10 ML SYR IVP ×2 (09:50→18:20)
[2019-06-03] MEDS: Furosemide 20 MG/2 ML VIAL IVP (09:50)
[2019-06-03] MEDS: Levalbuterol 1.25 MG/3 ML UPD VIAL UPD (10:24)
--- NOTE | 2019-06-03 11:33 | CMPROGNOTE_ITS ---
- If Service Date Differs Date of service: 06/03/19 Time of Service: 11:33 Care Management Progress Note S/O: Dave was sitting up in bed when CM met with him. He reported that he isn't feeling well. He talked to CM about his brother in law, who he does not get along with. He expressed concern about his correctional case manager in the community sharing information with his brother in law. CM advised him that his health care information is protected while at [facility], per [employer]. CM will continue to follow. A: Dave is a 64 year old man admitted to [facility] on 05/31/19 with COPD exacerbation. P: Dave will be discharged to his ex-'s home where he has been living for the past few months. He will follow up with his new PCP on 06/24/19 at 11:15 am at [facility]. He will need new services for nursing and possibly PT. CM will continue to support patient, family and discharge planning needs.
--- NOTE | 2019-06-03 11:52 | W.PM.PROGNOT ---
Date of Service Date of service: 06/03/19 Time of Service: 11:52 Assessment and Plan Assessment and plan (1) New onset a-fib: Status: Acute Assessment and plan: New onset Afib in setting of severe underlying pulmonary disease, hypoxia, and administration of high dose steroids and nebulized b-agonist. - ECHO checked and essentially unremarkable. - Changed Duoneb and prn albuterol to Levalbuterol. - Would avoid BB given severity of lung disease. Continue oral Cardizem. - Responded to Dig load - will continue digoxin daily, and discontinue Cardizem gtt. Given tachycardia, will increase dose of oral Dilt as well. - Is not a good candidate for anticoagulation - has a history of intracranial bleed that he verbally reports as spontaneous in nature and involving an aneurysm. Records unavailable. Patient seems to have responded to Digoxin, which is not optimal but likely best option at this time. Discussed with cardiology who agrees with this course of action. Also may consider amiodarone if needed, but currently remains in sinus. Will continue to monitor on telemetry. Appeared mildly volume overloaded, secondary to administration of fluids and rapid HR. Weight has also increased - small dose of diuretic administered this morning. (2) Acute exacerbation of chronic obstructive pulmonary disease (COPD): Status: Acute Assessment and plan: Chronic Hypercapneic and Hypoxic Respiratory Failure, as witnessed by prior ABG and chronic O2 need. PFTs obtained in January show significant dysfunction, with an FEV1 of 0.54 and FEV1/FVC of 32. He has multiple ED visits and admissions. Current exacerbation may be on the basis of O2 equipment malfunction at home. - Continue Pulmicort, Daliresp, standing low dose and prn levalbuterol. - Continue high dose IV Steroids, with expected exaggerated WBC response steroid therapy. Decreased dose slightly on 06/02. - Continue NIV therapy with either BiPAP or Trilogy through hospitalization. - Has received antibiotic therapy in the past, including 3 months ago with Pip-Robbin and Levofloxacin for growth of pseudomonas in sputum without evidence of pneumonia by imaging - please note that the patient's condition did not improve significantly until the addition of antibiotics in the past. However, also with evidence of C.Diff positivity by PCR in March. Current Xray negative, patient was initially afebrile, and minimal/chronic leukocytosis. Procalcitonin only at 0.1. However, with development of a fever overnight of 38.7 - Sputum and blood cultures pending, repeat CXR negative. Urinalysis pending as well. Also tentatively initiated Abx therapy with Levofloxacin. (3) Hypertension: Status: Chronic Assessment and plan: Continue Diltiazem with increase in dose as above. (4) GERD (gastroesophageal reflux disease): Status: Chronic Assessment and plan: Continue PPI therapy. (5) DVT prophylaxis: Status: Acute Assessment and plan: Maintain on SCDs and TEDs given history of IC Bleed. (6) Advance directive on file: Status: Acute Assessment and plan: Full Code. Subjective Subjective Interval history since last seen: 64 year old man with a prior history of Oxygen dependent COPD, admitted from [facility] Emergency Department on 05/31 with a diagnosis of acute COPD Exacerbation. Mr. 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 He also has a history of CAD with prior [place], TIA, and Cerebellar Hemorrhage with resultant speech impediment. He has had exaggerated WBC response to steroid administration in the past. The patient has been admitted here in the past and treated for COPD exacerbation, with Pseudomonas on Sputum cultures. He has also in the past failed to progress well despite optimal treatment, with recurrent growth of Pseudomonas again in his sputum and with repeat negative CXR, with improvement once initiated on Antibiotic therapy with pseudomonas coverage. Of note, there is also evidence of C.Diff + by PCR in early March of this year, specifically following administration of the above antibiotic therapy. The patient presented to the ED with reported 3 day history of worsening dyspnea, complaining of malfunctioning Trilogy system at home which per respiratory therapy evaluation appears to be a malfunctioning concentrator. Labwork was fairly unremarkable and consisted of a minimal leukocytosis, unchanged blood gas showing hypercapnea and hypoxia, and normal renal function. CXR showed no acute abnormality. However, Lactate was elevated and worsened to 3.6 on repeat check, and patient was noted to be persistently tachycardic. He was referred for admission for further evaluation and treatment. Following admission Mr. Alston developed a new onset of Afib overnight on 06/01, with rates that were difficult to control despite administration of IV Pushes of Cardizem, and eventually cardizem gtt that was maxed. BB therapy was considered but not administered given severity and acuity of patient's COPD exacerbation. He was eventually loaded with Digoxin, and by late that morning he converted to sinus rhythm. ECHO checked and with normal LV Function, normal RV function, normal atrial size, and no significant valvular disease - PHTN with RVSP of 40 were also noted. The patient reports that his breathing is improved, although his HR in sinus rhythm is mildly tachycardic today. He also had a recorded fever overnight on 06/02 prompting initiation of antibiotic therapy - remains afebrile since. No other events reported. Exam Narrative Exam Narrative: General: Patient appears chronically ill, AAOX3, NAD. Impaired speech noted and unchanged. Neck: Supple CV: Regular and tachy this morning.S1S2. No overt r/m/g. Pulmonary: Significantly diminished breath sounds with vast improvement in diffuse wheezing. Abdomen: + Bowel Sounds, soft, nontender, nondistended Vascular: Mild lower extremity edema Psych: Normal mood and affect. Objective Objective Clinical Data: Abnormal lab results 06/03/19 06/03/19 Range/Units 06:15 06:15 WBC 13.88 H D (4.4-10.8) k/cumm Hgb 12.0 L (13.5-17.5) g/dL Hct 39.2 L (40.0-50.0) % MCH 25.3 L (27.0-33.0) pg MCHC 30.6 L (32.0-36.0) g/dL RDW 15.7 H (11.8-14.1) % Absolute Neutrophils 12.48 H (1.2-6.7) k/cumm Absolute Lymphocytes 0.86 L (1.2-3.4) k/cumm Carbon Dioxide 32.4 H (21.0-32.0) mmol/L Creatinine 0.49 L (0.70-1.30) mg/dL Glucose 117 H (74-106) mg/dL Vital Signs Temperature 36.9 C 06/03/19 08:33 Temperature Source Tympanic 06/03/19 08:33 Pulse 98 H 06/03/19 10:01 Pulse 101 H 06/03/19 10:01 Respiratory Rate 17 06/03/19 10:01 Respiratory Effort Accessory Muscle Use 06/03/19 08:33 Respiratory Depth Deep 06/03/19 08:33 Respiratory Pattern Normal 06/03/19 08:33 Blood Pressure 162/92 H 06/03/19 10:01 Blood Pressure Mean 106 06/03/19 10:01 Blood Pressure Position Supine 06/03/19 08:33 Pulse Oximetry 96 06/03/19 10:01 Oxygen Delivery Method Bi-pap 06/03/19 08:33 Oxygen Flow Rate 2 06/03/19 07:15 Fraction of Inspired Oxygen (FIO2) 28 05/31/19 10:14 Pain Level 0 06/03/19 08:33 Intake & Output 06/02/19 06/02/19 06/03/19 11:59 23:59 11:59 Intake Total 630 / 2698.75 2068.75 / 2698.75 1440.00 / 1440.00 Output Total 1349 / 1989 2450 / 2450 Balance -720 / 708.75 1428.75 / 708.75 -1010.00 / -1010.00 Weight 72.1 kg 75 kg Intake: IV 150 / 1798.75 1648.75 / 1798.75 940.00 / 940.00 Oral 480 / 900 420 / 900 500 / 500 Output: Urine 1349 640 / 1989 2450 / 2450 Other: Urine Color Light Elly Yellow Pale Urine Appearance Clear Clear Clear Urine Odor None None None Comment Voided 260 cc of clear, dark yellow urine. Frequent voids of small amts Frequent voids of small amts Stool Occult Blood Negative Stool Size Large Stool Characteristics Soft Voiding Methods Urinal Urinal Urinal Laboratory Results WBC 13.88 k/cumm (4.4-10.8) H D 06/03/19 06:15 RBC 4.74 m/cumm (4.50-6.00) 06/03/19 06:15 Hgb 12.0 g/dL (13.5-17.5) L 06/03/19 06:15 Hct 39.2 % (40.0-50.0) L 06/03/19 06:15 MCV 82.7 fL (80-95) 06/03/19 06:15 MCH 25.3 pg (27.0-33.0) L 06/03/19 06:15 MCHC 30.6 g/dL (32.0-36.0) L 06/03/19 06:15 RDW 15.7 % (11.8-14.1) H 06/03/19 06:15 Plt Count 385 x1000/uL (130-400) 06/03/19 06:15 MPV 9.5 fL (8.0-11.0) 06/03/19 06:15 Immature Gran % 0.4 06/03/19 06:15 Neutrophils % 89.9 06/03/19 06:15 Lymphocytes % 6.2 06/03/19 06:15 Monocytes % 3.5 06/03/19 06:15 Eosinophils % 0.0 06/03/19 06:15 Basophils % 0.0 06/03/19 06:15 Absolute Neutrophils 12.48 k/cumm (1.2-6.7) H 06/03/19 06:15 Absolute Lymphocytes 0.86 k/cumm (1.2-3.4) L 06/03/19 06:15 Absolute Monocytes 0.49 k/cumm (0.11-0.7) 06/03/19 06:15 Absolute Eosinophils 0.00 k/cumm (0.0-0.7) 06/03/19 06:15 Absolute Basophils 0.00 k/cumm (0.0-0.2) 06/03/19 06:15 VBG pH 7.30 (7.32-7.43) L 05/31/19 08:50 VBG pCO2 73 mm/Hg (34-47) H 05/31/19 08:50 VBG pO2 45 mm/Hg (28-44) H 05/31/19 08:50 VBG HCO3 36 mmol/L (22-28) H 05/31/19 08:50 VBG Total CO2 33 mmol/L (22-29) H 05/31/19 08:50 VBG O2 Saturation 76 % (70-80) 05/31/19 08:50 VBG Base Excess 9.8 mmol/L (-3-3) H 05/31/19 08:50 Sodium 142 mmol/L (136-145) 06/03/19 06:15 Potassium 4.0 mmol/L (3.5-5.1) 06/03/19 06:15 Chloride 104 mmol/L (98-107) 06/03/19 06:15 Carbon Dioxide 32.4 mmol/L (21.0-32.0) H 06/03/19 06:15 Anion Gap 5.6 mmol/L (3-11) 06/03/19 06:15 BUN 15 mg/dL (7-18) 06/03/19 06:15 Creatinine 0.49 mg/dL (0.70-1.30) L 06/03/19 06:15 Estimated GFR/1.73 m2 >= 60.00 (mL/min/1.73m2) 06/03/19 06:15 Glucose 117 mg/dL (74-106) H 06/03/19 06:15 Lactate 0.8 mmol/L (0.6-1.4) 06/01/19 05:10 Calcium 8.5 mg/dL (8.5-10.1) 06/03/19 06:15 Magnesium 1.9 mg/dL (1.8-2.4) 06/03/19 06:15 Total Bilirubin 0.1 mg/dL (0.2-1.0) L 05/31/19 08:50 AST 12 U/L (15-37) L 05/31/19 08:50 ALT 21 U/L (16-63) 05/31/19 08:50 Alkaline Phosphatase 122 U/L (46-116) H 05/31/19 08:50 Troponin I < 0.05 ng/Ml (<0.06) 06/01/19 13:12 Total Protein 7.5 g/dL (6.4-8.2) 05/31/19 08:50 Albumin 3.9 g/dL (3.4-5.0) 05/31/19 08:50 Procalcitonin 0.1 ng/mL 05/31/19 08:50
[2019-06-03] MEDS: dilTIAZem 30 MG TAB PO ×2 (13:45→21:24)
[2019-06-03 16:08] LABS: Bilirubin Negative (Negative); Blood Trace-intact (Negative); Clarity Clear (Clear); Glucose Negative (Negative); Ketones 15 mg/dL (Negative); Leukocyte Esterase Negative (Negative); Nitrite Negative (Negative); Urobilinogen 0.2 EU/dL (Up TO 0.2); pH 7.5 (5-8)
[2019-06-03 16:52] LABS: Bacteria Negative HPF (Negative); C & S Indicated? No; Casts Negative LPF (Negative); Crystals Negative HPF (Negative); Epithelial Cells Negative HPF (Negative); Mucus Negative (Negative); Other Cells Negative (Negative); WBC Negative HPF (0-5)
[2019-06-04] VITALS (99 sets, daily range): BP systolic 104–171; BP diastolic 72–100; PULSE 55–112; RESP 2–32; TEMP 36.3–37.2; O2SAT 90–99
[2019-06-04] MEDS: methylPREDNISolone SUCC 40 MG VIAL IVP ×3 (02:26→18:21)
[2019-06-04] MEDS: Levalbuterol 0.63 MG/3 ML UPD VIAL UPD ×5 (04:19→19:54)
[2019-06-04 06:53] LABS: Abs Immature Grans 0.03 k/cumm (0.0-0.09); Absolute Lymphocyte Count 0.86 k/cumm (1.2-3.4); Absolute Monocyte Count 0.58 k/cumm (0.11-0.7); Absolute Neutrophil Count 9.59 k/cumm (1.2-6.7); HCT 41.9 % (40.0-50.0); HGB 12.9 g/dL (13.5-17.5); Immature Grans % 0.3; Lymphocytes % 7.8; Mean Corp. HGB Concentration 30.8 g/dL (32.0-36.0); Mean Corpuscular Hemoglobin 25.2 pg (27.0-33.0); Mean Corpuscular Volume 81.8 fL (80-95); Mean Platelet Volume 9.6 fL (8.0-11.0); Monocytes % 5.2; Neutrophils % 86.7; Platelet Count 415 x1000/uL (130-400); RBC 5.12 m/cumm (4.50-6.00); RBC Distribution Width 15.7 % (11.8-14.1); White Blood Cell Count 11.06 k/cumm (4.4-10.8)
[2019-06-04 07:03] LABS: Anion Gap 6.3 mmol/L (3-11); BUN 20 mg/dL (7-18); CO2 34.7 mmol/L (21.0-32.0); CREATININE 0.57 mg/dL (0.70-1.30); Calcium 8.8 mg/dL (8.5-10.1); Chloride 101 mmol/L (98-107); Glucose 139 mg/dL (74-106); Magnesium 1.9 mg/dL (1.8-2.4); Sodium 142 mmol/L (136-145)
[2019-06-04] MEDS: dilTIAZem CD 120 MG CAPCR 240 MG PO (07:39)
[2019-06-04] MEDS: Folic Acid 1 MG TAB PO (07:39)
[2019-06-04] MEDS: Aspirin 325 MG TAB PO (07:39)
[2019-06-04] MEDS: Roflumilast 500 MCG TAB PO (07:40)
[2019-06-04] MEDS: guaiFENesin 600 MG TABCR PO ×2 (07:40→19:54)
[2019-06-04] MEDS: Digoxin 0.125 MG TAB PO (07:40)
[2019-06-04] MEDS: Lactobacillus Acidophilus CAP 1 CAP PO ×3 (07:40→19:54)
[2019-06-04] MEDS: Omeprazole 20 MG CAPCR PO (07:40)
[2019-06-04] MEDS: Budesonide 0.5 MG/2 ML UPD VIAL UPD ×2 (07:45→20:42)
[2019-06-04] MEDS: levoFLOXacin 750 MG/150 ML BAG 100 MG IVPB (09:43)
[2019-06-04] MEDS: Normal Saline Flush 10 ML SYR IVP (09:45)
--- NOTE | 2019-06-04 11:22 | PGE_ITS ---
Date of Service Date of service: 06/04/19 Time of Service: 11:22 Assessment and Plan Assessment and plan (1) New onset a-fib: Status: Acute Assessment and plan: Patient seems to have responded to Digoxin, and Cardizem. Continue to monitor on telemetry. Consider amiodarone if he has recurrent A. fib. (2) Acute exacerbation of chronic obstructive pulmonary disease (COPD): Status: Acute Assessment and plan: Chronic Hypercapneic and Hypoxic Respiratory Failure, Current exacerbation may be on the basis of O2 equipment malfunction at home and new onset A. fib. - Continue Pulmicort, Daliresp, standing low dose and prn levalbuterol. -Discontinue IV Steroids, change to p.o. prednisone 40 mg daily. - Continue NIV therapy with either BiPAP or Trilogy through hospitalization. - Has received antibiotic therapy in the past, including 3 months ago with Pip- Robbin and Levofloxacin for growth of pseudomonas in sputum without evidence of pneumonia by imaging - please note that the patient's condition did not improve significantly until the addition of antibiotics in the past. However, also with evidence of C.Diff positivity by PCR in March. Current Xray negative, patient was initially afebrile, and minimal/chronic leukocytosis. Procalcitonin only at 0.1. However, with development of a fever overnight of 38.7 he was started on levofloxacin on 06/02/19. Sputum normal kandis and blood cultures no growth, repeat CXR negative. Complete 5 days of levofloxacin on 06/06/2019. Transition to [facility] today. (3) Hypertension: Status: Chronic Assessment and plan: Continue Diltiazem CD 240 mg daily . (4) GERD (gastroesophageal reflux disease): Status: Chronic Assessment and plan: Continue PPI therapy. (5) DVT prophylaxis: Status: Acute Assessment and plan: Maintain on TEDs. Avoid anticoagulants given history of IC Bleed. (6) Advance directive on file: Status: Acute Assessment and plan: Full Code. Discussed ramifications of intubations and the possibility of chronic vent dependence given the extent of his lung disease. He would like to still consider intubation if needed and rely on his ex-'s judgment as to whether to discontinue therapy. Subjective Subjective Patient reports: feels better, tolerating a regular diet and diarrhea Interval history since last seen: He is concerned that when he eats he gets loose stools. He feels his breathing is better though still tenuous. No chest pain or palpitations. We discussed advanced directives. He has made his ex- his decision maker. He still wants to be a full code. Exam Narrative Exam Narrative: He is sitting up in a chair. He is enjoying watching TV. He exhibits no obvious respiratory distress. He has his trilogy device on. He is maintaining sats of 95%. Resp Effort & Inspection: normal respiratory effort Auscultation: bronchovesicular breath sounds (Diffuse) bilaterally and no wheezes Cardio Rate: regular rate Rhythm: regular rhythm Heart Sounds: no murmurs Other: Heart sounds are distant and quiet GI Palpation: soft and nontender Extrem General: no pedal edema Objective Objective Clinical Data: Abnormal lab results 06/03/19 06/04/19 06/04/19 Range/Units 16:00 06:20 06:20 WBC 11.06 H (4.4-10.8) k/cumm Hgb 12.9 L (13.5-17.5) g/dL MCH 25.2 L (27.0-33.0) pg MCHC 30.8 L (32.0-36.0) g/dL RDW 15.7 H (11.8-14.1) % Plt Count 415 H (130-400) x1000/uL Absolute Neutrophils 9.59 H (1.2-6.7) k/cumm Absolute Lymphocytes 0.86 L (1.2-3.4) k/cumm Carbon Dioxide 34.7 H (21.0-32.0) mmol/L BUN 20 H (7-18) mg/dL Creatinine 0.57 L (0.70-1.30) mg/dL Glucose 139 H (74-106) mg/dL Urine Ketones 15 H (Negative) mg/dL Urine Blood Trace-intact H (Negative) Urine RBC 3-5 H (0-2) HPF Vital Signs Temperature 37.2 C 06/04/19 07:48 Temperature Source Temporal Artery Scan 06/04/19 07:48 Pulse 90 06/04/19 09:57 Pulse 95 H 06/04/19 09:57 Respiratory Rate 20 06/04/19 09:57 Respiratory Effort Labored 06/04/19 07:48 Respiratory Depth Normal 06/04/19 07:48 Respiratory Pattern Tachypnea 06/04/19 07:48 Blood Pressure 139/81 06/04/19 09:57 Blood Pressure Mean 96 06/04/19 09:57 Blood Pressure Position Sitting 06/04/19 03:47 Pulse Oximetry 96 06/04/19 09:57 Oxygen Delivery Method Nasal Cannula 06/04/19 07:54 Oxygen Flow Rate 2 06/04/19 08:05 Fraction of Inspired Oxygen (FIO2) 2 06/04/19 07:46 Pain Level 0 06/04/19 07:48 Intake & Output 06/03/19 06/03/19 06/04/19 11:59 23:59 11:59 Intake Total 1590.00 / 1830.00 240 / 1830.00 480 / 480 Output Total 2450 / 3175 725 / 3175 675 / 675 Balance -860.00 / -1345.00 -485 / -1345.00 -195 / -195 Weight 75 kg 74.1 kg Intake: IV 1090.00 / 1090.00 0 / 1090.00 Oral 500 / 740 240 / 740 480 / 480 Output: Urine 2450 / 3175 725 / 3175 675 / 675 Other: Urine Color Pale Yellow Yellow Urine Appearance Clear Clear Clear Urine Odor None Normal None Comment Frequent voids of small amts wears brief in case of dribbling-none noted wears brief in case of dribbling-none noted Stool Occult Blood Negative Stool Size Large Moderate Stool Characteristics Soft Soft Formed Voiding Methods Urinal Urinal Bedside Commode Laboratory Results WBC 11.06 k/cumm (4.4-10.8) H 06/04/19 06:20 RBC 5.12 m/cumm (4.50-6.00) 06/04/19 06:20 Hgb 12.9 g/dL (13.5-17.5) L 06/04/19 06:20 Hct 41.9 % (40.0-50.0) 06/04/19 06:20 MCV 81.8 fL (80-95) 06/04/19 06:20 MCH 25.2 pg (27.0-33.0) L 06/04/19 06:20 MCHC 30.8 g/dL (32.0-36.0) L 06/04/19 06:20 RDW 15.7 % (11.8-14.1) H 06/04/19 06:20 Plt Count 415 x1000/uL (130-400) H 06/04/19 06:20 MPV 9.6 fL (8.0-11.0) 06/04/19 06:20 Immature Gran % 0.3 06/04/19 06:20 Neutrophils % 86.7 06/04/19 06:20 Lymphocytes % 7.8 06/04/19 06:20 Monocytes % 5.2 06/04/19 06:20 Eosinophils % 0.0 06/04/19 06:20 Basophils % 0.0 06/04/19 06:20 Absolute Neutrophils 9.59 k/cumm (1.2-6.7) H 06/04/19 06:20 Absolute Lymphocytes 0.86 k/cumm (1.2-3.4) L 06/04/19 06:20 Absolute Monocytes 0.58 k/cumm (0.11-0.7) 06/04/19 06:20 Absolute Eosinophils 0.00 k/cumm (0.0-0.7) 06/04/19 06:20 Absolute Basophils 0.00 k/cumm (0.0-0.2) 06/04/19 06:20 VBG pH 7.30 (7.32-7.43) L 05/31/19 08:50 VBG pCO2 73 mm/Hg (34-47) H 05/31/19 08:50 VBG pO2 45 mm/Hg (28-44) H 05/31/19 08:50 VBG HCO3 36 mmol/L (22-28) H 05/31/19 08:50 VBG Total CO2 33 mmol/L (22-29) H 05/31/19 08:50 VBG O2 Saturation 76 % (70-80) 05/31/19 08:50 VBG Base Excess 9.8 mmol/L (-3-3) H 05/31/19 08:50 Sodium 142 mmol/L (136-145) 06/04/19 06:20 Potassium 4.0 mmol/L (3.5-5.1) 06/04/19 06:20 Chloride 101 mmol/L (98-107) 06/04/19 06:20 Carbon Dioxide 34.7 mmol/L (21.0-32.0) H 06/04/19 06:20 Anion Gap 6.3 mmol/L (3-11) 06/04/19 06:20 BUN 20 mg/dL (7-18) H 06/04/19 06:20 Creatinine 0.57 mg/dL (0.70-1.30) L 06/04/19 06:20 Estimated GFR/1.73 m2 >= 60.00 (mL/min/1.73m2) 06/04/19 06:20 Glucose 139 mg/dL (74-106) H 06/04/19 06:20 Lactate 0.8 mmol/L (0.6-1.4) 06/01/19 05:10 Calcium 8.8 mg/dL (8.5-10.1) 06/04/19 06:20 Magnesium 1.9 mg/dL (1.8-2.4) 06/04/19 06:20 Total Bilirubin 0.1 mg/dL (0.2-1.0) L 05/31/19 08:50 AST 12 U/L (15-37) L 05/31/19 08:50 ALT 21 U/L (16-63) 05/31/19 08:50 Alkaline Phosphatase 122 U/L (46-116) H 05/31/19 08:50 Troponin I < 0.05 ng/Ml (<0.06) 06/01/19 13:12 Total Protein 7.5 g/dL (6.4-8.2) 05/31/19 08:50 Albumin 3.9 g/dL (3.4-5.0) 05/31/19 08:50 Procalcitonin 0.1 ng/mL 05/31/19 08:50 Urine Color Yellow (Yellow) 06/03/19 16:00 Urine Clarity Clear (Clear) 06/03/19 16:00 Urine pH 7.5 (5-8) 06/03/19 16:00 Ur Specific [place] 1.020 (1.005-1.025) 06/03/19 16:00 Urine Protein Negative mg/dL (Negative) 06/03/19 16:00 Urine Ketones 15 mg/dL (Negative) H 06/03/19 16:00 Urine Blood Trace-intact (Negative) H 06/03/19 16:00 Urine Nitrite Negative (Negative) 06/03/19 16:00 Urine Bilirubin Negative (Negative) 06/03/19 16:00 Urine Urobilinogen 0.2 EU/dL (Up TO 0.2) 06/03/19 16:00 Ur Leukocyte Esterase Negative (Negative) 06/03/19 16:00 Urine RBC 3-5 HPF (0-2) H 06/03/19 16:00 Urine WBC Negative HPF (0-5) 06/03/19 16:00 Ur Epithelial Cells Negative HPF (Negative) 06/03/19 16:00 Urine Crystals Negative HPF (Negative) 06/03/19 16:00 Urine Bacteria Negative HPF (Negative) 06/03/19 16:00 Urine Casts Negative LPF (Negative) 06/03/19 16:00 Urine Mucus Negative (Negative) 06/03/19 16:00 Urine Other Negative (Negative) 06/03/19 16:00 Ur Culture Indicated? No 06/03/19 16:00 Urine Glucose Negative mg/dL (Negative) 06/03/19 16:00
--- NOTE | 2019-06-04 12:17 | PDOC.CMPRO ---
- If Service Date Differs Date of service: 06/04/19 Time of Service: 12:17 Care Management Progress Note S/O: Dave remains inpatient he will transition to acute today from ICU level of care. Dave will need a new home health face to face for nursing at time of discharge. He has choices for care highest needs which will resume at time of discharge. Consuelo Carpenter is his community ambassador. A: Dave is a 64 year old man admitted to [facility] on 05/31/19 with COPD exacerbation. P: Dave will be discharged to his ex-'s home where he has been living for the past few months. He will follow up with his new PCP on 06/24/19 at 11:15 am at [facility]. He will need new services for nursing and PT for better breathing. CM will continue to support patient, family and discharge planning needs.
[2019-06-05] VITALS (38 sets, daily range): BP systolic 106–171; BP diastolic 68–94; PULSE 67–183; RESP 2–25; TEMP 36.4–36.9; O2SAT 92–97
[2019-06-05] MEDS: Levalbuterol 0.63 MG/3 ML UPD VIAL UPD ×5 (04:25→20:33)
[2019-06-05 07:00] LABS: Anion Gap 4.4 mmol/L (3-11); BUN 22 mg/dL (7-18); CO2 34.6 mmol/L (21.0-32.0); CREATININE 0.52 mg/dL (0.70-1.30); Calcium 8.5 mg/dL (8.5-10.1); Chloride 102 mmol/L (98-107); Glucose 125 mg/dL (74-106); Potassium 3.7 mmol/L (3.5-5.1); Sodium 141 mmol/L (136-145)
[2019-06-05 07:02] LABS: Abs Immature Grans 0.03 k/cumm (0.0-0.09); Absolute Basophil Count 0.01 k/cumm (0.0-0.2); Absolute Lymphocyte Count 1.17 k/cumm (1.2-3.4); Absolute Monocyte Count 1.31 k/cumm (0.11-0.7); Absolute Neutrophil Count 10.96 k/cumm (1.2-6.7); Basophils % 0.1; HCT 41.4 % (40.0-50.0); HGB 12.7 g/dL (13.5-17.5); Immature Grans % 0.2; Lymphocytes % 8.7; Mean Corp. HGB Concentration 30.7 g/dL (32.0-36.0); Mean Corpuscular Volume 81.5 fL (80-95); Mean Platelet Volume 9.9 fL (8.0-11.0); Monocytes % 9.7; Neutrophils % 81.3; Platelet Count 401 x1000/uL (130-400); RBC 5.08 m/cumm (4.50-6.00); RBC Distribution Width 15.6 % (11.8-14.1); White Blood Cell Count 13.48 k/cumm (4.4-10.8)
[2019-06-05] MEDS: Budesonide 0.5 MG/2 ML UPD VIAL UPD ×2 (07:38→21:03)
[2019-06-05] MEDS: Omeprazole 20 MG CAPCR PO (07:56)
--- NOTE | 2019-06-05 08:26 | W.PM.PROGNOT ---
Date of Service Date of service: 06/05/19 Time of Service: 11:17 Assessment and Plan Assessment and plan (1) Acute exacerbation of chronic obstructive pulmonary disease (COPD): Status: Acute Assessment and plan: Improving on levofloxacin (day 4), scheduled and prn nebs, pulmicort, daliresp. Monitor on current dose of prednisone (40 mg PO daily). I added atrovent and acapella to the regimen. (2) New onset a-fib: Status: Acute Assessment and plan: Rate is controlled on Digoxin and Cardizem. Continue to monitor on telemetry. Consider amiodarone if he has recurrent A. fib. Check digoxin level in am. (3) Hypertension: Status: Chronic Assessment and plan: Continue Diltiazem CD 240 mg daily . (4) GERD (gastroesophageal reflux disease): Status: Chronic Assessment and plan: Continue PPI therapy. (5) Chronic respiratory failure with hypoxia and hypercapnia: Status: Chronic Assessment and plan: Continue Trilogy/supplemental O2 - requirements at baseline. (6) DVT prophylaxis: Status: Acute Assessment and plan: Maintain on TEDs. Avoid anticoagulants given history of IC Bleed. (7) Advance directive on file: Status: Acute Assessment and plan: Full Code. Consult palliative care. Subjective Subjective Interval history since last seen: Feels better than yesterday, but not yet at baseline. Thin white sputum. 2L, saturating in the 90's. HR 90-106, Sinus. Denies chest pain, nausea, shortness of breath is improving slowly. Reports his chronic dizziness when he turns his head. Exam Narrative Exam Narrative: General: Very pleasant middle-aged male, speaking with a speech impediment, A&Ox3 HEENT: EOMI, MMM Heart: RRR, mildly tachycardic, no m/r/g Lungs: ?crakles at B bases Abdomen: abdomen is soft, nontender, nondistended Extremities: no e/c/c BLE's Objective Objective Clinical Data: Abnormal lab results 06/05/19 06/05/19 Range/Units 06:06 06:06 WBC 13.48 H (4.4-10.8) k/cumm Hgb 12.7 L (13.5-17.5) g/dL MCH 25.0 L (27.0-33.0) pg MCHC 30.7 L (32.0-36.0) g/dL RDW 15.6 H (11.8-14.1) % Plt Count 401 H (130-400) x1000/uL Absolute Neutrophils 10.96 H (1.2-6.7) k/cumm Absolute Lymphocytes 1.17 L (1.2-3.4) k/cumm Absolute Monocytes 1.31 H (0.11-0.7) k/cumm Carbon Dioxide 34.6 H (21.0-32.0) mmol/L BUN 22 H (7-18) mg/dL Creatinine 0.52 L (0.70-1.30) mg/dL Glucose 125 H (74-106) mg/dL Vital Signs Temperature 36.9 C 06/05/19 04:08 Temperature Source Tympanic 06/05/19 04:08 Pulse 91 H 06/05/19 07:38 Pulse Rhythm Regular 06/05/19 07:58 Pulse 94 H 06/05/19 07:26 Respiratory Rate 21 06/05/19 07:26 Respiratory Effort 06/05/19 07:58 Respiratory Depth Normal 06/05/19 07:58 Respiratory Pattern Normal 06/05/19 07:58 Blood Pressure 153/94 H 06/05/19 07:26 Blood Pressure Mean 108 06/05/19 07:26 Blood Pressure Position Sitting 06/04/19 03:47 Pulse Oximetry 93 L 06/05/19 07:26 Oxygen Delivery Method Bi-pap 06/04/19 15:58 Oxygen Flow Rate 2 06/05/19 07:00 Fraction of Inspired Oxygen (FIO2) 2 06/04/19 07:46 Pain Level 0 06/05/19 04:08 Comment 06/04/19 15:58 Intake & Output 06/04/19 06/04/19 06/05/19 11:59 23:59 11:59 Intake Total 480 / 1070 590 / 1070 300 / 300 Output Total 675 / 1400 625 / 1400 375 / 375 Balance -195 / -330 -35 / -330 -75 / -75 Weight 74.1 kg 74 kg Intake: IV 0 / 0 Oral 480 / 1070 590 / 1070 300 / 300 Output: Urine 675 / 1400 625 / 1400 375 / 375 Other: Urine Color Yellow Yellow Yellow Urine Appearance Clear Clear Clear Urine Odor None None None Comment wears brief in case of dribbling-none noted Stool Size Moderate Small Stool Characteristics Soft Soft Formed Voiding Methods Bedside Commode Urinal Urinal Laboratory Results WBC 13.48 k/cumm (4.4-10.8) H 06/05/19 06:06 RBC 5.08 m/cumm (4.50-6.00) 06/05/19 06:06 Hgb 12.7 g/dL (13.5-17.5) L 06/05/19 06:06 Hct 41.4 % (40.0-50.0) 06/05/19 06:06 MCV 81.5 fL (80-95) 06/05/19 06:06 MCH 25.0 pg (27.0-33.0) L 06/05/19 06:06 MCHC 30.7 g/dL (32.0-36.0) L 06/05/19 06:06 RDW 15.6 % (11.8-14.1) H 06/05/19 06:06 Plt Count 401 x1000/uL (130-400) H 06/05/19 06:06 MPV 9.9 fL (8.0-11.0) 06/05/19 06:06 Immature Gran % 0.2 06/05/19 06:06 Neutrophils % 81.3 06/05/19 06:06 Lymphocytes % 8.7 06/05/19 06:06 Monocytes % 9.7 06/05/19 06:06 Eosinophils % 0.0 06/05/19 06:06 Basophils % 0.1 06/05/19 06:06 Absolute Neutrophils 10.96 k/cumm (1.2-6.7) H 06/05/19 06:06 Absolute Lymphocytes 1.17 k/cumm (1.2-3.4) L 06/05/19 06:06 Absolute Monocytes 1.31 k/cumm (0.11-0.7) H 06/05/19 06:06 Absolute Eosinophils 0.00 k/cumm (0.0-0.7) 06/05/19 06:06 Absolute Basophils 0.01 k/cumm (0.0-0.2) 06/05/19 06:06 VBG pH 7.30 (7.32-7.43) L 05/31/19 08:50 VBG pCO2 73 mm/Hg (34-47) H 05/31/19 08:50 VBG pO2 45 mm/Hg (28-44) H 05/31/19 08:50 VBG HCO3 36 mmol/L (22-28) H 05/31/19 08:50 VBG Total CO2 33 mmol/L (22-29) H 05/31/19 08:50 VBG O2 Saturation 76 % (70-80) 05/31/19 08:50 VBG Base Excess 9.8 mmol/L (-3-3) H 05/31/19 08:50 Sodium 141 mmol/L (136-145) 06/05/19 06:06 Potassium 3.7 mmol/L (3.5-5.1) 06/05/19 06:06 Chloride 102 mmol/L (98-107) 06/05/19 06:06 Carbon Dioxide 34.6 mmol/L (21.0-32.0) H 06/05/19 06:06 Anion Gap 4.4 mmol/L (3-11) 06/05/19 06:06 BUN 22 mg/dL (7-18) H 06/05/19 06:06 Creatinine 0.52 mg/dL (0.70-1.30) L 06/05/19 06:06 Estimated GFR/1.73 m2 >= 60.00 (mL/min/1.73m2) 06/05/19 06:06 Glucose 125 mg/dL (74-106) H 06/05/19 06:06 Lactate 0.8 mmol/L (0.6-1.4) 06/01/19 05:10 Calcium 8.5 mg/dL (8.5-10.1) 06/05/19 06:06 Magnesium 1.9 mg/dL (1.8-2.4) 06/04/19 06:20 Total Bilirubin 0.1 mg/dL (0.2-1.0) L 05/31/19 08:50 AST 12 U/L (15-37) L 05/31/19 08:50 ALT 21 U/L (16-63) 05/31/19 08:50 Alkaline Phosphatase 122 U/L (46-116) H 05/31/19 08:50 Troponin I < 0.05 ng/Ml (<0.06) 06/01/19 13:12 Total Protein 7.5 g/dL (6.4-8.2) 05/31/19 08:50 Albumin 3.9 g/dL (3.4-5.0) 05/31/19 08:50 Procalcitonin 0.1 ng/mL 05/31/19 08:50 Urine Color Yellow (Yellow) 06/03/19 16:00 Urine Clarity Clear (Clear) 06/03/19 16:00 Urine pH 7.5 (5-8) 06/03/19 16:00 Ur Specific [place] 1.020 (1.005-1.025) 06/03/19 16:00 Urine Protein Negative mg/dL (Negative) 06/03/19 16:00 Urine Ketones 15 mg/dL (Negative) H 06/03/19 16:00 Urine Blood Trace-intact (Negative) H 06/03/19 16:00 Urine Nitrite Negative (Negative) 06/03/19 16:00 Urine Bilirubin Negative (Negative) 06/03/19 16:00 Urine Urobilinogen 0.2 EU/dL (Up TO 0.2) 06/03/19 16:00 Ur Leukocyte Esterase Negative (Negative) 06/03/19 16:00 Urine RBC 3-5 HPF (0-2) H 06/03/19 16:00 Urine WBC Negative HPF (0-5) 06/03/19 16:00 Ur Epithelial Cells Negative HPF (Negative) 06/03/19 16:00 Urine Crystals Negative HPF (Negative) 06/03/19 16:00 Urine Bacteria Negative HPF (Negative) 06/03/19 16:00 Urine Casts Negative LPF (Negative) 06/03/19 16:00 Urine Mucus Negative (Negative) 06/03/19 16:00 Urine Other Negative (Negative) 06/03/19 16:00 Ur Culture Indicated? No 06/03/19 16:00 Urine Glucose Negative mg/dL (Negative) 06/03/19 16:00
[2019-06-05] MEDS: Roflumilast 500 MCG TAB PO (08:35)
[2019-06-05] MEDS: Aspirin 325 MG TAB PO (08:35)
[2019-06-05] MEDS: Digoxin 0.125 MG TAB PO (08:35)
[2019-06-05] MEDS: dilTIAZem CD 120 MG CAPCR 240 MG PO (08:35)
[2019-06-05] MEDS: predniSONE 20 MG TAB 40 MG PO (08:36)
[2019-06-05] MEDS: Lactobacillus Acidophilus CAP 1 CAP PO ×3 (08:36→20:15)
[2019-06-05] MEDS: guaiFENesin 600 MG TABCR PO ×2 (08:36→20:15)
[2019-06-05] MEDS: Folic Acid 1 MG TAB PO (08:36)
[2019-06-05 09:39] LABS: Magnesium 2.1 mg/dL (1.8-2.4)
[2019-06-05] MEDS: levoFLOXacin 750 MG/150 ML BAG 100 MG IVPB (10:58)
--- NOTE | 2019-06-05 10:59 | PDOC.CMPRO ---
- If Service Date Differs Date of service: 06/05/19 Time of Service: 10:59 Care Management Progress Note S/O: CM met with Dave in the ICU he is alert and sitting up in the chair. Dave is interested in completing his advance directives he state he did complete them with Lesly, he would like to review them before signing. Palliative consult has been ordered anticipate the consult will occur on Friday when service returns. Will plan to hold advance directives until then. Dave remains on IV abx and will be discharged when he is medically ready. A: Dave is a 64 year old man admitted to [facility] on 05/31/19 with COPD exacerbation. P: Dave will be discharged to Lesly's home where he has been living for the past few months. He will follow up with his new PCP on 06/24/19 at 11:15 am at [facility]. He will need new services for nursing and PT for better breathing. CM will continue to support patient, family and discharge planning needs.
[2019-06-05] MEDS: Ipratropium 0.5 MG/2.5 ML UPD VIAL 0.25 MG UPD ×2 (16:05→20:15)
[2019-06-05] MEDS: Levalbuterol 1.25 MG/3 ML UPD VIAL UPD ×3 (20:15→20:30)
[2019-06-06] VITALS (28 sets, daily range): BP systolic 124–145; BP diastolic 65–77; PULSE 72–125; RESP 4–24; TEMP 36.7–37; O2SAT 92–99
[2019-06-06] MEDS: Ipratropium 0.5 MG/2.5 ML UPD VIAL 0.25 MG UPD ×3 (02:57→11:58)
[2019-06-06] MEDS: Levalbuterol 0.63 MG/3 ML UPD VIAL UPD ×3 (02:57→11:59)
[2019-06-06 06:35] LABS: Abs Immature Grans 0.05 k/cumm (0.0-0.09); Absolute Basophil Count 0.01 k/cumm (0.0-0.2); Absolute Neutrophil Count 10.17 k/cumm (1.2-6.7); Basophils % 0.1; Eosinophils % 0.1; HCT 40.5 % (40.0-50.0); HGB 12.5 g/dL (13.5-17.5); Immature Grans % 0.3; Lymphocytes % 18.8; Mean Corp. HGB Concentration 30.9 g/dL (32.0-36.0); Mean Corpuscular Hemoglobin 25.3 pg (27.0-33.0); Mean Corpuscular Volume 81.8 fL (80-95); Mean Platelet Volume 9.8 fL (8.0-11.0); Monocytes % 12.4; Neutrophils % 68.3; Platelet Count 374 x1000/uL (130-400); RBC 4.95 m/cumm (4.50-6.00); RBC Distribution Width 15.7 % (11.8-14.1); White Blood Cell Count 14.89 k/cumm (4.4-10.8)
[2019-06-06 06:49] LABS: Absolute Eosinophil Count 0.01 k/cumm (0.0-0.7); Absolute Monocyte Count 1.85 k/cumm (0.11-0.7)
[2019-06-06 07:03] LABS: Anion Gap 5.7 mmol/L (3-11); BUN 27 mg/dL (7-18); CO2 34.3 mmol/L (21.0-32.0); CREATININE 0.57 mg/dL (0.70-1.30); Calcium 8.3 mg/dL (8.5-10.1); Chloride 102 mmol/L (98-107); Digoxin 0.37 ng/mL (0.90-2.00); Glucose 130 mg/dL (74-106); Magnesium 1.9 mg/dL (1.8-2.4); Potassium 3.1 mmol/L (3.5-5.1); Sodium 142 mmol/L (136-145)
[2019-06-06 07:19] LABS: Diff Comment Diff Reviewed; RBC Morphology Normal
[2019-06-06 07:25] LABS: Procalcitonin < 0.1 ng/mL
[2019-06-06] MEDS: Roflumilast 500 MCG TAB PO (08:02)
[2019-06-06] MEDS: dilTIAZem CD 120 MG CAPCR 240 MG PO (08:03)
[2019-06-06] MEDS: Lactobacillus Acidophilus CAP 1 CAP PO ×2 (08:03→14:19)
[2019-06-06] MEDS: Digoxin 0.125 MG TAB PO (08:03)
[2019-06-06] MEDS: Folic Acid 1 MG TAB PO (08:03)
[2019-06-06] MEDS: Aspirin 325 MG TAB PO (08:03)
[2019-06-06] MEDS: predniSONE 20 MG TAB 40 MG PO (08:03)
[2019-06-06] MEDS: guaiFENesin 600 MG TABCR PO (08:03)
[2019-06-06] MEDS: Omeprazole 20 MG CAPCR PO (08:03)
[2019-06-06] MEDS: Budesonide 0.5 MG/2 ML UPD VIAL UPD (08:15)
--- NOTE | 2019-06-06 08:23 | W.PM.PROGNOT ---
Date of Service Date of service: 06/06/19 Time of Service: 08:23 Subjective Subjective Interval history since last seen: Spent the night on trilogy, on 2L of O2 now. SVT last night at 19:30 - asymptomatic. Broke on its own. Objective Objective Clinical Data: Abnormal lab results 06/05/19 06/06/19 06/06/19 Range/Units 06:06 06:05 06:05 WBC 14.89 H (4.4-10.8) k/cumm Hgb 12.5 L (13.5-17.5) g/dL MCH 25.3 L (27.0-33.0) pg MCHC 30.9 L (32.0-36.0) g/dL RDW 15.7 H (11.8-14.1) % Absolute Neutrophils 10.17 H (1.2-6.7) k/cumm Absolute Monocytes 1.85 H (0.11-0.7) k/cumm Potassium 3.1 L (3.5-5.1) mmol/L Carbon Dioxide 34.6 H 34.3 H (21.0-32.0) mmol/L BUN 22 H 27 H (7-18) mg/dL Creatinine 0.52 L 0.57 L (0.70-1.30) mg/dL Glucose 125 H 130 H (74-106) mg/dL Calcium 8.3 L (8.5-10.1) mg/dL Digoxin 0.37 L (0.90-2.00) ng/mL Vital Signs Temperature 36.7 C 06/06/19 03:00 Temperature Source Tympanic 06/06/19 03:00 Pulse 85 06/06/19 08:03 Pulse Rhythm Regular 06/05/19 19:40 Pulse 91 H 06/06/19 06:01 Respiratory Rate 17 06/06/19 06:01 Respiratory Effort 06/06/19 01:00 Respiratory Depth Normal 06/06/19 01:00 Respiratory Pattern Normal 06/06/19 01:00 Blood Pressure 145/77 H 06/06/19 06:01 Blood Pressure Mean 88 06/06/19 06:01 Blood Pressure Position Sitting 06/04/19 03:47 Pulse Oximetry 95 06/06/19 06:01 Oxygen Delivery Method Bi-pap 06/04/19 15:58 Oxygen Flow Rate 2 06/06/19 03:00 Fraction of Inspired Oxygen (FIO2) 2 06/04/19 07:46 Pain Level 0 06/06/19 03:00 Comment 06/04/19 15:58 Intake & Output 06/05/19 06/05/19 06/06/19 11:59 23:59 11:59 Intake Total 500 / 1372 622 / 1372 490 / 490 Output Total 375 / 1050 675 / 1050 225 / 225 Balance 125 / 322 -53 / 322 265 / 265 Weight 74 kg 75 kg Intake: IV 150 / 300 150 / 150 Oral 500 / 1072 472 / 1072 340 / 340 Output: Urine 375 / 1050 675 / 1050 225 / 225 Other: Urine Color Yellow Yellow Yellow Urine Appearance Clear Clear Clear Urine Odor None None None Stool Size Large Stool Characteristics Soft Formed Brown Voiding Methods Urinal Urinal Urinal Laboratory Results WBC 14.89 k/cumm (4.4-10.8) H 06/06/19 06:05 RBC 4.95 m/cumm (4.50-6.00) 06/06/19 06:05 Hgb 12.5 g/dL (13.5-17.5) L 06/06/19 06:05 Hct 40.5 % (40.0-50.0) 06/06/19 06:05 MCV 81.8 fL (80-95) 06/06/19 06:05 MCH 25.3 pg (27.0-33.0) L 06/06/19 06:05 MCHC 30.9 g/dL (32.0-36.0) L 06/06/19 06:05 RDW 15.7 % (11.8-14.1) H 06/06/19 06:05 Plt Count 374 x1000/uL (130-400) 06/06/19 06:05 MPV 9.8 fL (8.0-11.0) 06/06/19 06:05 Immature Gran % 0.3 06/06/19 06:05 Neutrophils % 68.3 06/06/19 06:05 Lymphocytes % 18.8 06/06/19 06:05 Monocytes % 12.4 06/06/19 06:05 Eosinophils % 0.1 06/06/19 06:05 Basophils % 0.1 06/06/19 06:05 Absolute Neutrophils 10.17 k/cumm (1.2-6.7) H 06/06/19 06:05 Absolute Lymphocytes 2.80 k/cumm (1.2-3.4) 06/06/19 06:05 Absolute Monocytes 1.85 k/cumm (0.11-0.7) H 06/06/19 06:05 Absolute Eosinophils 0.01 k/cumm (0.0-0.7) 06/06/19 06:05 Absolute Basophils 0.01 k/cumm (0.0-0.2) 06/06/19 06:05 Differential Comment Diff reviewed 06/06/19 06:05 RBC Morphology Normal 06/06/19 06:05 VBG pH 7.30 (7.32-7.43) L 05/31/19 08:50 VBG pCO2 73 mm/Hg (34-47) H 05/31/19 08:50 VBG pO2 45 mm/Hg (28-44) H 05/31/19 08:50 VBG HCO3 36 mmol/L (22-28) H 05/31/19 08:50 VBG Total CO2 33 mmol/L (22-29) H 05/31/19 08:50 VBG O2 Saturation 76 % (70-80) 05/31/19 08:50 VBG Base Excess 9.8 mmol/L (-3-3) H 05/31/19 08:50 Sodium 142 mmol/L (136-145) 06/06/19 06:05 Potassium 3.1 mmol/L (3.5-5.1) L 06/06/19 06:05 Chloride 102 mmol/L (98-107) 06/06/19 06:05 Carbon Dioxide 34.3 mmol/L (21.0-32.0) H 06/06/19 06:05 Anion Gap 5.7 mmol/L (3-11) 06/06/19 06:05 BUN 27 mg/dL (7-18) H 06/06/19 06:05 Creatinine 0.57 mg/dL (0.70-1.30) L 06/06/19 06:05 Estimated GFR/1.73 m2 >= 60.00 (mL/min/1.73m2) 06/06/19 06:05 Glucose 130 mg/dL (74-106) H 06/06/19 06:05 Lactate 0.8 mmol/L (0.6-1.4) 06/01/19 05:10 Calcium 8.3 mg/dL (8.5-10.1) L 06/06/19 06:05 Magnesium 1.9 mg/dL (1.8-2.4) 06/06/19 06:05 Total Bilirubin 0.1 mg/dL (0.2-1.0) L 05/31/19 08:50 AST 12 U/L (15-37) L 05/31/19 08:50 ALT 21 U/L (16-63) 05/31/19 08:50 Alkaline Phosphatase 122 U/L (46-116) H 05/31/19 08:50 Troponin I < 0.05 ng/Ml (<0.06) 06/01/19 13:12 Total Protein 7.5 g/dL (6.4-8.2) 05/31/19 08:50 Albumin 3.9 g/dL (3.4-5.0) 05/31/19 08:50 Procalcitonin < 0.1 ng/mL 06/06/19 06:05 Urine Color Yellow (Yellow) 06/03/19 16:00 Urine Clarity Clear (Clear) 06/03/19 16:00 Urine pH 7.5 (5-8) 06/03/19 16:00 Ur Specific [place] 1.020 (1.005-1.025) 06/03/19 16:00 Urine Protein Negative mg/dL (Negative) 06/03/19 16:00 Urine Ketones 15 mg/dL (Negative) H 06/03/19 16:00 Urine Blood Trace-intact (Negative) H 06/03/19 16:00 Urine Nitrite Negative (Negative) 06/03/19 16:00 Urine Bilirubin Negative (Negative) 06/03/19 16:00 Urine Urobilinogen 0.2 EU/dL (Up TO 0.2) 06/03/19 16:00 Ur Leukocyte Esterase Negative (Negative) 06/03/19 16:00 Urine RBC 3-5 HPF (0-2) H 06/03/19 16:00 Urine WBC Negative HPF (0-5) 06/03/19 16:00 Ur Epithelial Cells Negative HPF (Negative) 06/03/19 16:00 Urine Crystals Negative HPF (Negative) 06/03/19 16:00 Urine Bacteria Negative HPF (Negative) 06/03/19 16:00 Urine Casts Negative LPF (Negative) 06/03/19 16:00 Urine Mucus Negative (Negative) 06/03/19 16:00 Urine Other Negative (Negative) 06/03/19 16:00 Ur Culture Indicated? No 06/03/19 16:00 Urine Glucose Negative mg/dL (Negative) 06/03/19 16:00 Digoxin 0.37 ng/mL (0.90-2.00) L 06/06/19 06:05
--- NOTE | 2019-06-06 08:27 | PDOC.CMPRO ---
- If Service Date Differs Date of service: 06/06/19 Time of Service: 08:27 Care Management Progress Note S/O: A: Dave is a 64 year old man admitted to [facility] on 05/31/19 with COPD exacerbation. P: Dave will be discharged to [facility]'s home where he has been living for the past few months. He will follow up with his new PCP on 06/24/19 at 11:15 am at [facility]. He will need new services for nursing and PT for better breathing. CM will continue to support patient, family and discharge planning needs.
[2019-06-06] MEDS: Potassium Chloride 20 MEQ TABCR 40 MEQ PO (08:54)
--- NOTE | 2019-06-06 10:04 | CMDISCH_ITS ---
- If Service Date Differs Date of service: 06/06/19 Time of Service: 10:04 LACE Index Scoring Tool - Questions: Length of Stay (in days): 4 - 6 Acuity (Admit via E.D.?): Yes Comorbidities: Chronic Pulmonary Disease E.D. Visits: 4 - Answers: Total Score: 13 Risk of Readmission: High Risk Care Management Discharge Reason for Hospitalization: Acute exacerbation of COPD Discharge Plan: Dave will be discharged home with new home health services including nursing and PT for better breathers program. JESSICA has contacted [facility], there is concern that Dave does not have his first appointment with his new primary care until the and home health will need a provider to sign orders. JESSICA has sent a message to [facility] at [facility] office and requested they follow the orders so that Dave does not go without servcies through Home Health. Dave will resume choices for care highest needs and his community service worker will follow up with him as outpatient. Turkey Egg Gatherer is Consuelo Carpenter at [facility], CM will notify her of discharge and discharge p jackson. Dave will need to have a home visit through Palliative care at time after discharge, CM to fax a referral requesting this be scheduled with Dave and his family. JESSICA provided a FWW through [employer] at the request of the patient and PT. Services Needed at Discharge: DME Agency, Home Health Care Services, Occupational Therapy, Physical Therapy, Transportation
[2019-06-06] MEDS: Normal Saline Flush 10 ML SYR IVP (10:13)
[2019-06-06] MEDS: levoFLOXacin 750 MG/150 ML BAG 100 MG IVPB (10:13)
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
--- NOTE | 2019-06-06 14:33 | PDOC.HHF2F ---
Home Health Certification Home Health Certification: 1. Encounter Date and Reason I certify that NOHEMY AVILA was seen by Juanita Sullivan on 06/06/19 and that I had a [id number] encounter with this patient that meets the physician face to face encounter requirements. 2. Clinical Findings Supporting Skilled Need and Homebound Status I certify that home health services are medically necessary, include either intermittent fdc and/or physical/speech therapy, and that this patient is homebound in that absences from the home require considerable and taxing effort and are infrequent or of short duration, or are attributable to the need to receive medical care. [X] (a) Attached documentation from encounter provides clinical findings supporting skilled need and homebound status (including what assistance patient requires to leave the home). The encounter with the patient was in whole, or in part, for the following medical condition, which is the primary reason for home health care: COPD EXACERBATION Retirement: end stage COPD, new diagnosis of paroxysmal Afib/SVT. Bloodwork 06/08/19: CBC with diff, BMP, Magnesium, digoxin level - results to Dr De La Cruz Physical Therapy: eval and treat; referral to [facility] program Occupational Therapy: eval and treat PARTS IDENTIFICATION TECHNICIAN: assess need for resources in community Homebound: unable to leave home without assistance 3. Certification and Authentication I certify that I composed the above information based on my clinical judgement relating to this patient's medical condition and, if applicable, clinical findings communicated to me by the NPP or inpatient physician who performed the Home Health Referral. All further orders will be obtained through __Dr De La Cruz (Community Based Physician - PCP)
--- NOTE | 2019-06-07 08:46 | PDOC.CMPRO ---
Care Management Progress Note Yudelka of Palliative Care called to inquire if Dave remained inpatient. JESSICA advised Dave discharged home with home health services on 06/06/19; Yudelka reported Palliative would follow up with Dave in the community.
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
== END 2019-06-06 14:50 | disposition home health service (06) | DRG 191 ==
LOC: ER 11:31 → ICU 12:13
PROVIDERS: Internal Medicine; Admitting Provider Internal Medicine; Emergency Provider Student in an Organized Health Care Education/Training Program; PCP Family Medicine; Visit Provider Internal Medicine
DX: J44.1 Chronic obstructive pulmonary disease with (acute) exacerbation (principal); J96.12 Chronic respiratory failure with hypercapnia; J96.11 Chronic respiratory failure with hypoxia; Z99.81 Dependence on supplemental oxygen; Z99.89 Dependence on other enabling machines and devices; I25.10 Atherosclerotic heart disease of native coronary artery without angina pectoris; I10 Essential (primary) hypertension; K21.9 Gastro-esophageal reflux disease without esophagitis; I69.228 Other speech and language deficits following other nontraumatic intracranial hemorrhage; Z87.891 Personal history of nicotine dependence; I48.91 Unspecified atrial fibrillation; I27.29 Other secondary pulmonary hypertension; R26.2 Difficulty in walking, not elsewhere classified
CPT/HCPCS: 36410; 36415; 80048; 80053; 82805; 84145; 87040; 93005; 94618; 94640; 96361; 96374; 97162; 97530; 99222; 99232; 99233; 99239; 99285; J1650; 71045; 80162; 81003; 81015; 83605; 83735; 84484; 85025; 87070; 87205; 93010; 93225; 93306; J1160; J1941; J1956; J2060; J2930; J3475; J7512; J7611; J7614; J7620; J7626; J7644

== ENCOUNTER 2019-06-10 11:48 | Outpatient (CLI) | payer MEDICAID, SELFPAY ==
[2019-06-10 12:07] LABS: Abs Immature Grans 0.27 k/cumm (0.0-0.09); Absolute Eosinophil Count 0.13 k/cumm (0.0-0.7); Absolute Lymphocyte Count 1.65 k/cumm (1.2-3.4); Absolute Neutrophil Count 14.85 k/cumm (1.2-6.7); Basophils % 0.1; Eosinophils % 0.7; HCT 42.1 % (40.0-50.0); HGB 12.5 g/dL (13.5-17.5); Immature Grans % 1.5; Mean Corp. HGB Concentration 29.7 g/dL (32.0-36.0); Mean Corpuscular Hemoglobin 25.2 pg (27.0-33.0); Mean Corpuscular Volume 84.7 fL (80-95); Mean Platelet Volume 9.1 fL (8.0-11.0); Monocytes % 7.5; Neutrophils % 81.2; Platelet Count 393 x1000/uL (130-400); RBC 4.97 m/cumm (4.50-6.00); RBC Distribution Width 15.8 % (11.8-14.1); White Blood Cell Count 18.29 k/cumm (4.4-10.8)
[2019-06-10 12:08] LABS: Absolute Basophil Count 0.02 k/cumm (0.0-0.2); Absolute Monocyte Count 1.37 k/cumm (0.11-0.7)
== END 2019-06-10 12:08 ==
PROVIDERS: PCP Family Medicine; Visit Provider Internal Medicine
DX: D72.829 Elevated white blood cell count, unspecified (principal)
CPT/HCPCS: 36415; 85025

== ENCOUNTER 2019-06-10 14:16 | Outpatient (CLI) | payer MEDICAID, SELFPAY ==
--- NOTE | 2019-06-10 16:07 | W.HOLTRPT ---
Date of service: 06/10/19 Time of Service: 16:07 Holter Monitor Report Holter Monitor Note: Is a 48-hour Holter monitor ordered for the indication of atrial fibrillation. ?The patient was in normal sinus rhythm for the majority of the recording time. ?Patient had 4 episodes of supraventricular tachycardia with the longest lasting 48 beats. ?Patient had occasional (1.8%) premature atrial contractions. ?The patient had no episodes of ventricular tachycardia and rare (less than 1%) single ventricular ectopic beats ?Patient no episode of atrial fibrillation, pauses greater than 3 seconds or high degree heart block. ?The patient's diary events were associated with normal sinus rhythm and sinus tachycardia.
== END 2019-06-10 14:36 ==
PROVIDERS: PCP Family Medicine; Visit Provider Family Medicine
DX: I48.91 Unspecified atrial fibrillation (principal); I47.1 Supraventricular tachycardia; I49.1 Atrial premature depolarization; I49.3 Ventricular premature depolarization
CPT/HCPCS: 93226

== ENCOUNTER 2019-06-15 15:11 | Outpatient (REF) | payer MEDICAID, SELFPAY ==
[2019-06-15 16:05] LABS: Abs Immature Grans 0.15 k/cumm (0.0-0.09); Absolute Basophil Count 0.02 k/cumm (0.0-0.2); Basophils % 0.1; Eosinophils % 1.4; HCT 37.6 % (40.0-50.0); HGB 11.6 g/dL (13.5-17.5); Immature Grans % 0.8; Lymphocytes % 14.1; Mean Corp. HGB Concentration 30.9 g/dL (32.0-36.0); Mean Corpuscular Volume 84.1 fL (80-95); Mean Platelet Volume 9.5 fL (8.0-11.0); Monocytes % 8.6; RBC 4.47 m/cumm (4.50-6.00); RBC Distribution Width 16.4 % (11.8-14.1); White Blood Cell Count 19.44 k/cumm (4.4-10.8)
[2019-06-15 16:17] LABS: BUN 17 mg/dL (7-18); Calcium 8.3 mg/dL (8.5-10.1); Chloride 98 mmol/L (98-107); Digoxin 0.58 ng/mL (0.90-2.00); Glucose 117 mg/dL (74-106); Potassium 4.3 mmol/L (3.5-5.1); Sodium 136 mmol/L (136-145)
[2019-06-15 16:59] LABS: Absolute Eosinophil Count 0.27 k/cumm (0.0-0.7); Absolute Lymphocyte Count 2.74 k/cumm (1.2-3.4); Absolute Monocyte Count 1.67 k/cumm (0.11-0.7); Absolute Neutrophil Count 14.58 k/cumm (1.2-6.7)
[2019-06-15 17:48] LABS: Platelet Count 358 x1000/uL (130-400)
[2019-06-15 17:49] LABS: Diff Comment Diff Reviewed; RBC Morphology Normal
== END 2019-06-15 15:31 ==
LOC: LBN 15:11
PROVIDERS: PCP Family Medicine; Visit Provider Family Medicine
DX: E87.6 Hypokalemia (principal); D72.829 Elevated white blood cell count, unspecified; I48.91 Unspecified atrial fibrillation; Z51.81 Encounter for therapeutic drug level monitoring; J44.1 Chronic obstructive pulmonary disease with (acute) exacerbation
CPT/HCPCS: 80048; 80162; 85025

== ENCOUNTER 2019-08-09 08:02 | Outpatient (CLI) | payer MEDICAID, SELFPAY ==
[2019-08-09 11:56] LABS: Digoxin 1.06 ng/mL (0.90-2.00)
== END 2019-08-09 08:22 ==
PROVIDERS: PCP Family Medicine; Visit Provider Family Medicine
DX: I48.91 Unspecified atrial fibrillation (principal); Z79.899 Other long term (current) drug therapy
CPT/HCPCS: 36415; 80162

== ENCOUNTER 2019-09-01 09:17 | Outpatient (CLI) | payer MEDICAID, SELFPAY | END 2019-09-01 09:37 | PROVIDERS: PCP Family Medicine; Visit Provider Internal Medicine Cardiovascular Disease | DX: I48.0 Paroxysmal atrial fibrillation (principal) | CPT/HCPCS: 93005; 93010 ==

== ENCOUNTER 2019-11-11 09:03 | Emergency (ER) | payer MEDICAID, SELFPAY ==
[2019-11-11 09:06] VITALS: BP 147/77; PULSE 77; RESP 18; TEMP 37.1; O2SAT 99
[2019-11-11 09:12] VITALS: RESP 14
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
== END 2019-11-11 09:45 | disposition home or self-care (01) ==
PROVIDERS: Emergency Provider Registered Nurse Emergency; PCP Family Medicine
DX: R06.02 Shortness of breath (principal); J44.9 Chronic obstructive pulmonary disease, unspecified; Z99.81 Dependence on supplemental oxygen; J96.11 Chronic respiratory failure with hypoxia; I10 Essential (primary) hypertension; Z87.891 Personal history of nicotine dependence
CPT/HCPCS: 99282; 99283

== ENCOUNTER 2019-12-02 10:19 | Outpatient (REF) | payer MEDICAID, SELFPAY ==
[2019-12-02 12:11] LABS: Anion Gap -0.3 mmol/L (3-11); BUN 11 mg/dL (7-18); CO2 35.3 mmol/L (21.0-32.0); CREATININE 0.55 mg/dL (0.70-1.30); Calcium 8.5 mg/dL (8.5-10.1); Chloride 105 mmol/L (98-107); Glucose 92 mg/dL (74-106); Potassium 4.1 mmol/L (3.5-5.1); Sodium 140 mmol/L (136-145)
== END 2019-12-02 10:39 ==
LOC: LBN 10:19
PROVIDERS: PCP Family Medicine; Visit Provider Family Medicine
DX: E87.6 Hypokalemia (principal)
CPT/HCPCS: 80048

== ENCOUNTER 2020-05-06 15:24 | Inpatient (IN) | payer MEDICAID, SELFPAY ==
[2020-05-06 15:36] VITALS: BP 146/85; PULSE 95; RESP 18; TEMP 36.8; O2SAT 98
--- NOTE | 2020-05-06 15:45 | DI.CT_ITS ---
EXAM: CT ABDOMEN PELVIS W CLINICAL HISTORY: L lower abd pain TECHNIQUE: Imaging Protocol: Axial computed tomography images with coronal and sagittal reformatted images were created and reviewed CONTRAST MATERIAL: Intravenous: Omnipaque 350 Contrast volume:100 mL Oral: No COMPARISON: CT CHEST WITH CONTRAST from 05/09/[address] CHEST PE CTA from 02/13/2019 FINDINGS: ABDOMEN: Lung Bases: Bilateral basilar infiltrates. Emphysematous changes in the lungs. Small hiatal hernia. Liver: Normal density. No measurable mass. Portal, Superior Mesenteric, and Splenic Veins: Unremarkable. Gallbladder and Biliary Tract: Cholelithiasis. No biliary ductal dilatation. Pancreas: Normal density, no abnormal calcifications or inflammatory process. Spleen: There are 3 hyperdense round lesions in the spleen. The largest measures 1.5 cm. Adrenals: No masses seen. Kidneys: Normal size, contour and axis. No radiodense stones or obstructive uropathy. No masses seen. Abdominal Aorta: Abdominal portion non-dilated. Atherosclerosis. Bowel: No obstruction or bowel wall thickening. No evidence of acute appendicitis. Colonic diverticu losis is present. No evidence of acute diverticulitis. There is a small focal fat density area acacia cent to the descending colon which shows some adjacent inflammation. Peritoneal Cavity: No ascites, collection or mesenteric inflammatory response. Lymph Nodes: Within normal limits. Bones: There are compression deformities of the L2 and L3 vertebral bodies of indeterminate age. Soft Tissues: Unremarkable. PELVIS: Bladder: Symmetric distention, no gross wall thickening. Reproductive Organs: Enlarged prostate gland which impinges upon the base of the urinary bladder. Lymph Nodes: Within normal limits. Bones: Please see above. IMPRESSION: 1. Focal fat density area adjacent to the descending colon which show some inflammation. Differentia l considerations include epiploic appendagitis or focal acute diverticulitis. Please correlate clini lucia. 2. Hyperdense lesions seen in the spleen. This may represent metastatic disease, infectious process or hemangiomas. 3. Cholelithiasis. No biliary ductal dilatation. 4. Hypodense areas seen in both the right and left veins extending into the iliac veins bilaterally. This likely reflects flow artifact. Thrombus not entirely excluded. Please correlate clinically. RADIATION DOSE DELIVERED: 940.6mGy.cm Total DLP DATA REPOSITORY: All CT scans at this facility are submitted to the National Radiology Data Registry (NRDR) Dose Index Registry (DIR) with the [employer] (A[employer]). RADIATION OPTIMIZATION: All CT scans at this facility use at least one of these dose optimization te chniques: automated exposure control; mA and/or kV adjustment per patient size (includes targeted exa ms where dose is matched to clinical indication); or iterative reconstruction.
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
[2020-05-06 16:15] LABS: Abs Immature Grans 0.04 10^3/uL (0.0-0.06); Absolute Basophil Count 0.06 10^3/uL (0.0-0.2); Absolute Eosinophil Count 0.39 10^3/uL (0.0-0.7); Absolute Lymphocyte Count 2.45 10^3/uL (1.2-3.4); Absolute Neutrophil Count 7.39 10^3/uL (1.2-6.7); Basophils % 0.5; Eosinophils % 3.5; HCT 43.2 % (40.0-50.0); HGB 13.2 g/dL (13.5-17.5); Immature Grans % 0.4; Lymphocytes % 21.8; MCH 25.3 pg (27.0-33.0); MCHC 30.6 % (32.0-36.0); MCV 82.8 fL (80-95); MPV 8.8 fL (8.0-11.0); Neutrophils % 65.8; Nucleated RBC 0 %; Platelet Count 341 10^3/uL (130-400); RBC 5.22 10^6/uL (4.36-5.78); RDW 14.2 % (11.8-14.1); RDW-SD 42.5 fL; WBC 11.23 10^3/uL (4.4-10.8)
[2020-05-06] MEDS: Acetaminophen 325 MG TAB 650 MG PO (16:20)
[2020-05-06 16:23] LABS: Bilirubin Negative (Negative); Blood Trace-intact (Negative); Clarity Clear (Clear); Glucose Negative (Negative); Ketones 15 mg/dL (Negative); Leukocyte Esterase Trace (Negative); Nitrite Negative (Negative); Specific Gravity >= 1.030 (1.005-1.025); Urobilinogen 0.2 EU/dL (Up TO 0.2)
[2020-05-06] MEDS: Normal Saline 1,000 ML 125 ML IV ×2 (16:25→22:14)
[2020-05-06 16:27] LABS: ALT 20 U/L (16-63); AST 10 U/L (15-37); Albumin 3.7 g/dL (3.4-5.0); Alkaline Phosphatase 135 U/L (46-116); Anion Gap 6.5 mmol/L (3-11); BUN 21 mg/dL (7-18); Bilirubin, Total 0.2 mg/dL (0.2-1.0); CO2 29.5 mmol/L (21.0-32.0); Calcium 9.1 mg/dL (8.5-10.1); Chloride 102 mmol/L (98-107); Glucose 95 mg/dL (74-106); Magnesium 1.8 mg/dL (1.8-2.4); Potassium 3.8 mmol/L (3.5-5.1); Sodium 138 mmol/L (136-145); Total Protein 7.7 g/dL (6.4-8.2)
[2020-05-06 16:31] LABS: Bacteria Moderate HPF (Negative); C & S Indicated? Yes; Casts Negative LPF (Negative); Crystals Negative HPF (Negative); Epithelial Cells Rare HPF (Negative); Mucus Negative (Negative); RBC 0-2 HPF (0-2)
[2020-05-06] MEDS: Omnipaque 350 MG/ML 100 ML BTL IV (16:37)
[2020-05-06 18:26] VITALS: BP 137/78; PULSE 66; PULSE 67; RESP 17; TEMP 36.5; O2SAT 99
[2020-05-06 18:27] VITALS: O2SAT 99
--- NOTE | 2020-05-06 18:29 | DI.VRAD_ITS ---
Addendum created by Shantelle Torres MD on 05/06/2020 6:39:01 PM EDT: THIS REPORT CONTAINS FINDINGS THAT MAY BE CRITICAL TO PATIENT CARE. The findings were verbally communicated via telephone conference with CINTIA ULLOA at 6:33 PM EDT on 05/06/2020. The findings were acknowledged and understood. In addition Dr. Ulloa and I discussed focal area of left pericolonic fat stranding series 3, image 49 to 53 which corresponds to patient's area of pain. It is possible this represents a contusion or bruise versus early diverticulitis. No free air. No free fluid. Initial report created on 05/06/2020 6:28:56 PM EDT: PROCEDURE INFORMATION: Exam: CT Abdomen And Pelvis With Contrast Exam date and time: 05/06/2020 4:44 PM Age: 65 years old Clinical indication: Other: Llq pain TECHNIQUE: Imaging protocol: Computed tomography of the abdomen and pelvis with intravenous contrast. Contrast material: OMNIPAQUE 350; Contrast volume: 100 ml; Contrast route: INTRAVENOUS (IV); COMPARISON: No relevant prior studies available. FINDINGS: Lungs: Bilateral lower lobe infiltrates. Emphysematous lung disease. Mediastinal space: Hiatal hernia. Liver: Normal. No mass. Gallbladder and bile ducts: Cholelithiasis. Pancreas: Normal. No ductal dilation. Spleen: Multiple enhancing splenic nodules of concern for metastatic disease or infectious process. Adrenal glands: Normal. No mass. Kidneys and ureters: Normal. No hydronephrosis. Stomach and bowel: Diverticulosis. Appendix: No evidence of appendicitis. Intraperitoneal space: Unremarkable. No free air. No significant fluid collection. Vasculature: The atherosclerotic disease. Atherosclerotic disease. Possible thrombus involving the right and left femoral veins versus flow artifact. Lymph nodes: Inguinal lymph nodes. Urinary bladder: Incompletely distended bladder with thickened wall. Reproductive: Unremarkable as visualized. Bones/joints: Multilevel degenerative changes of the thoracic and lumbar spine. Multilevel degenerative changes of the thoracic and lumbar spine. Soft tissues: Umbilical hernia. Fat distension of the inguinal canals. IMPRESSION: 1. Multiple enhancing splenic nodules of concern for metastatic disease or infectious process. 2. Cholelithiasis. 3. Possible thrombus involving the right and left femoral vein versus flow artifact. Additional findings as discussed above. Dictated and Authenticated by: Shantelle Torres MD. Ordering:JAYJAY Miranda MD
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
[2020-05-06] MEDS: PIPERACILLIN/TAZO 3.375 GM in Normal Saline 50 ML IVPB (19:12)
[2020-05-06 20:43] VITALS: BP 134/68; PULSE 64; RESP 18; TEMP 37; O2SAT 98
[2020-05-06] MEDS: Ipratropium 0.5 MG/2.5 ML UPD VIAL 0.25 MG UPD (22:14)
[2020-05-06] MEDS: dilTIAZem CD 120 MG CAPCR PO (22:14)
[2020-05-06] MEDS: Pantoprazole 40 MG VIAL IVP (22:15)
[2020-05-06] MEDS: Enoxaparin 40 MG/0.4 ML SYR SC (22:15)
[2020-05-06 23:55] VITALS: BP 132/71; PULSE 69; RESP 16; TEMP 36.8; O2SAT 95
[2020-05-07] VITALS (8 sets, daily range): BP systolic 131–147; BP diastolic 76–82; PULSE 61–80; RESP 1–20; TEMP 35.8–37.1; O2SAT 94–97
[2020-05-07] MEDS: Ipratropium 0.5 MG/2.5 ML UPD VIAL 0.25 MG UPD ×6 (01:19→22:22)
[2020-05-07] MEDS: PIPERACILLIN/TAZO 3.375 GM in Normal Saline 50 ML IVPB ×3 (04:10→20:51)
[2020-05-07] MEDS: Normal Saline 1,000 ML 125 ML IV (05:52)
[2020-05-07 08:12] LABS: Abs Immature Grans 0.04 10^3/uL (0.0-0.06); Absolute Basophil Count 0.06 10^3/uL (0.0-0.2); Absolute Eosinophil Count 0.37 10^3/uL (0.0-0.7); Absolute Lymphocyte Count 2.62 10^3/uL (1.2-3.4); Absolute Monocyte Count 0.78 10^3/uL (0.1-0.8); Absolute Neutrophil Count 5.12 10^3/uL (1.2-6.7); Basophils % 0.7; Eosinophils % 4.1; HCT 39.1 % (40.0-50.0); HGB 11.9 g/dL (13.5-17.5); Immature Grans % 0.4; Lymphocytes % 29.1; MCH 25.2 pg (27.0-33.0); MCHC 30.4 % (32.0-36.0); MCV 82.8 fL (80-95); MPV 9.3 fL (8.0-11.0); Monocytes % 8.7; Nucleated RBC 0 %; Platelet Count 315 10^3/uL (130-400); RBC 4.72 10^6/uL (4.36-5.78); RDW 14.2 % (11.8-14.1); WBC 8.99 10^3/uL (4.4-10.8)
[2020-05-07 08:17] LABS: C-Reactive Protein 0.76 mg/dL (0.0-0.3)
[2020-05-07 08:23] LABS: ALT 17 U/L (16-63); AST 9 U/L (15-37); Albumin 3.1 g/dL (3.4-5.0); Alkaline Phosphatase 106 U/L (46-116); Anion Gap 6.8 mmol/L (3-11); BUN 16 mg/dL (7-18); Bilirubin, Total 0.2 mg/dL (0.2-1.0); CO2 27.2 mmol/L (21.0-32.0); CREATININE 0.64 mg/dL (0.70-1.30); Calcium 8.1 mg/dL (8.5-10.1); Chloride 105 mmol/L (98-107); Digoxin 0.34 ng/mL (0.90-2.00); Glucose 77 mg/dL (74-106); Potassium 3.7 mmol/L (3.5-5.1); Sodium 139 mmol/L (136-145); Total Protein 6.3 g/dL (6.4-8.2)
[2020-05-07 08:37] LABS: D-Dimer 380 ng/mlFEU (<500)
[2020-05-07] MEDS: Pantoprazole 40 MG VIAL IVP (09:43)
[2020-05-07] MEDS: Normal Saline Flush 10 ML SYR IVP (09:43)
[2020-05-07] MEDS: Digoxin 0.125 MG TAB PO (09:44)
[2020-05-07] MEDS: dilTIAZem CD 120 MG CAPCR PO ×3 (09:44→20:53)
[2020-05-07] MEDS: Roflumilast 500 MCG TAB PO (09:44)
[2020-05-07] MEDS: Aspirin E.C. 325 MG TABEC PO (09:44)
[2020-05-07] MEDS: Acetaminophen 500 MG TAB 1000 MG PO (14:03)
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
[2020-05-07] MEDS: Enoxaparin 40 MG/0.4 ML SYR SC (21:00)
[2020-05-08] VITALS (10 sets, daily range): BP systolic 125–166; BP diastolic 72–94; PULSE 63–85; RESP 1–19; TEMP 36.4–37.3; O2SAT 92–99
--- NOTE | 2020-05-08 | DI.US_ITS ---
EXAM: US EXTREMITY VENOUS BI CLINICAL HISTORY: abnl CT. TECHNIQUE: Bilateral lower extremity venous ultrasound performed using grayscale, color-flow, and sp ectral Doppler analysis. COMPARISON: No exams were available for comparison FINDINGS: The bilateral common femoral, femoral and popliteal veins demonstrate normal compressibility, augment ation, and color Doppler. The posterior tibial veins are patent. The saphenofemoral junctions are unr emarkable. There is no evidence of a Cruz's cyst. The soft tissues are unremarkable. IMPRESSION: Right: Negative for DVT Left: Negative for DVT DATA REPOSITORY:
[2020-05-08] MEDS: Ipratropium 0.5 MG/2.5 ML UPD VIAL 0.25 MG UPD ×4 (02:27→13:23)
[2020-05-08] MEDS: PIPERACILLIN/TAZO 3.375 GM in Normal Saline 50 ML IVPB ×3 (03:48→20:16)
[2020-05-08] MEDS: Normal Saline 1,000 ML 50 ML IV (03:48)
[2020-05-08] MEDS: Roflumilast 500 MCG TAB PO (09:00)
[2020-05-08] MEDS: Digoxin 0.125 MG TAB PO (09:00)
[2020-05-08] MEDS: Pantoprazole 40 MG VIAL IVP (09:00)
[2020-05-08] MEDS: dilTIAZem CD 120 MG CAPCR PO ×3 (09:00→20:15)
[2020-05-08] MEDS: Aspirin E.C. 325 MG TABEC PO (09:00)
[2020-05-08] MEDS: Normal Saline Flush 10 ML SYR IVP ×2 (09:01→20:15)
--- NOTE | 2020-05-08 12:01 | PDOC.CMPRO ---
- If Service Date Differs Date of service: 05/08/20 Time of Service: 12:01 Care Management Progress Note S/O: Dave remains acute at this time, he is receiving IV abx and IV fluids. CM will continue to assess for ongoing discharge needs. A:Dave is a 65 year old patient admitted with Diverticulitis. P:Dave will be discharged home when medically cleared by provider with a resumption of home oxygen, MOW, and CFC - highest needs. He will follow up with his PCP, surgeon, and discharge plan of care as directed. Transport home will either be via private vehicle with his son or RCT arranged by CM. Dave states neither Lesly nor his daughter drive. CM will continue to support patient and discharge planning needs.
[2020-05-08 14:32] LABS: SARS-CoV-2 RNA Not Detected (NotDetected); SARS-CoV-2 RNA Source Nasopharynx
--- NOTE | 2020-05-08 20:49 | W.PM.PROGNOT ---
Date of Service Date of service: 05/08/20 Time of Service: 14:30 Assessment and Plan Assessment and plan (1) Epiploic appendagitis: Status: Acute Assessment and plan: pt doing well and is asymp. cont abx adat HLIV supportive care hopefully d/c home n am- should not require further abx. or treatment. (2) Difficulty using verbal communication: Status: Acute (3) Oxygen dependent: Status: Acute (4) Ambulatory dysfunction: Status: Acute (5) Chronic respiratory failure with hypoxia and hypercapnia: Status: Chronic (6) Mild cognitive impairment with memory loss: Status: Acute (7) Anxiety: Status: Chronic (8) Brain aneurysm: Status: Resolved Subjective Subjective Interval history since last seen: pt seen & examined. Pt is feeling better. No pain. He did have a BM- no blood. no headaches. No CP or SOB. no productive cough. no dysuria. no leg pain or swelling. pt has been up in his rooom. He doesn't normaly walk b/c he gets sob- this is his nl baseline. No change in resp status. Exam Resp Effort & Inspection: normal respiratory effort and able to speak in complete sentences Auscultation: diminished lung sounds GI Other: no pain. no distention. good BS. Extrem Other: warm adn pink. no edema. Objective Last Vital Signs Temp 36.6 C 05/08/20 15:50 Pulse 63 05/08/20 15:50 Resp 19 05/08/20 15:50 BP 166/86 H 05/08/20 15:50 Pulse Ox 98 05/08/20 15:50 Laboratory Results - last 24 hr 05/06/20 19:55 SARS-CoV-2 Source Nasopharynx SARS-CoV-2 (PCR) Not detected
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
[2020-05-08] MEDS: Enoxaparin 40 MG/0.4 ML SYR SC (22:42)
[2020-05-09] VITALS (8 sets, daily range): BP systolic 122; BP diastolic 75; PULSE 72–86; RESP 7–20; TEMP 37.1; O2SAT 96–100
[2020-05-09] MEDS: PIPERACILLIN/TAZO 3.375 GM in Normal Saline 50 ML IVPB ×2 (04:49→11:32)
[2020-05-09] MEDS: Pantoprazole 40 MG VIAL IVP (08:27)
[2020-05-09] MEDS: Aspirin E.C. 325 MG TABEC PO (08:28)
[2020-05-09] MEDS: Roflumilast 500 MCG TAB PO (08:28)
[2020-05-09] MEDS: Normal Saline 50 ML 200 ML (08:28)
[2020-05-09] MEDS: Digoxin 0.125 MG TAB PO (08:28)
[2020-05-09] MEDS: dilTIAZem CD 120 MG CAPCR PO (08:29)
--- NOTE | 2020-05-09 09:18 | W.PM.PROGNOT ---
Documented by User: YANETH Cox 05/09/20 09:22 Date of Service Date of service: 05/09/20 Time of Service: 09:18 Assessment and Plan Assessment and plan (1) Epiploic appendagitis: Status: Acute Assessment and plan: Patient is feeling well today. Denies having any abdominal pain. Activity as tolerated. D/C home later today. Subjective Subjective Interval history since last seen: Mr. Alston is feeling well today. He denies having any abdominal pain and he is eager to return home later today. Exam Const General: cooperative, healthy appearing and comfortable Orientation: alert and oriented x3 Resp Effort & Inspection: normal respiratory effort, no audible wheezes and no cough GI Inspection: normal to inspection Palpation: soft, no guarding and nontender Objective Last Vital Signs Temp 37.1 C 05/09/20 07:53 Pulse 73 05/09/20 08:28 Resp 19 05/09/20 07:53 BP 122/75 05/09/20 07:53 Pulse Ox 97 05/09/20 08:25 Laboratory Results - last 24 hr 05/06/20 19:55 SARS-CoV-2 Source Nasopharynx SARS-CoV-2 (PCR) Not detected Documented by User: Tyesha Nugent MD 05/09/20 10:55
--- NOTE | 2020-05-09 11:43 | PDOC.CMDIS ---
- If Service Date Differs Date of service: 05/09/20 Time of Service: 11:43 LACE Index Scoring Tool - Questions: Length of Stay (in days): 3 Acuity (Admit via E.D.?): Yes Comorbidities: Chronic Pulmonary Disease, Dementia E.D. Visits: 3 - Answers: Total Score: 14 Risk of Readmission: High Risk Care Management Discharge Reason for Hospitalization: Diverticulitis. Discharge Plan: Dave is discharging home today, resumption of home health nursing, and highest need choices for care. He will follow up with for palliative on 05/23/2020 at 1500. Dave will be transported home via private car with family at time of discharge. Patient/Family Education Needs: Discharge education, limitations and follow up plan of care including ask me three and self management. Services Needed at Discharge: Home Health Care Services
[2020-05-09] MEDS: Levalbuterol 1.25 MG/3 ML UPD VIAL UPD (13:44)
[2020-05-09] MEDS: Ipratropium 0.5 MG/2.5 ML UPD VIAL UPD (13:48)
== END 2020-05-09 14:20 | disposition home health service (06) | DRG 394 ==
LOC: ER 19:06 → MS 20:27
PROVIDERS: Admitting Provider Surgery; Emergency Provider Emergency Medicine; PCP Family Medicine; Visit Provider Surgery
DX: K63.89 Other specified diseases of intestine (principal); J96.11 Chronic respiratory failure with hypoxia; I47.1 Supraventricular tachycardia; J96.12 Chronic respiratory failure with hypercapnia; J44.9 Chronic obstructive pulmonary disease, unspecified; F41.9 Anxiety disorder, unspecified; N40.0 Benign prostatic hyperplasia without lower urinary tract symptoms; Z99.81 Dependence on supplemental oxygen; K21.9 Gastro-esophageal reflux disease without esophagitis; E78.5 Hyperlipidemia, unspecified; I10 Essential (primary) hypertension; F06.8 Other specified mental disorders due to known physiological condition; I27.20 Pulmonary hypertension, unspecified; Z86.73 Personal history of transient ischemic attack (TIA), and cerebral infarction without residual deficits; Z87.891 Personal history of nicotine dependence; R47.89 Other speech disturbances; R26.2 Difficulty in walking, not elsewhere classified; Z11.59 Encounter for screening for other viral diseases
CPT/HCPCS: 36415; 80053; 94640; 96361; 96365; 99222; 99232; 99238; 99285; J1650; U0003; 74177; 80162; 81003; 81015; 83735; 85025; 85379; 86140; 87086; 93970; J2543; J3490; J7614; J7644

== ENCOUNTER 2020-08-08 15:21 | Outpatient (REF) | payer MEDICAID, SELFPAY ==
[2020-08-08 15:41] LABS: Bilirubin Negative (Negative); Blood Negative (Negative); Clarity Clear (Clear); Glucose Negative (Negative); Ketones Negative (Negative); Leukocyte Esterase Negative (Negative); Nitrite Negative (Negative); Specific Gravity >= 1.030 (1.005-1.025); Urobilinogen 0.2 EU/dL (Up TO 0.2); pH 6.5 (5-8)
--- NOTE | 2020-11-14 10:57 | RESPIRATORY ---
11/14/20- Spoke with [facility] who was at Pt's home yesterday giving him his second COVID vaccine. EMS states Pt is reporting more WOB and his nebulizer is has broken. This RT had EMS go back and deliver a new Nebulizer machine to Pt while they are there giving Pt's ex-'s COVID vaccine. This RT spoke with Abby Cortez, RT @ [facility] who provides Pt's Trilogy ventilator. A request for a download on Pt's machine was placed to see if settings need to be adjusted.
== END 2020-08-08 15:22 | disposition home or self-care (01) ==
LOC: LBN 15:21
PROVIDERS: PCP Family Medicine; Visit Provider Family Medicine
DX: N39.0 Urinary tract infection, site not specified (principal)
CPT/HCPCS: 81003

== ENCOUNTER 2021-10-18 11:03 | Outpatient (REF) | payer MEDICARE, MEDICAID, SELFPAY ==
[2021-10-18 12:32] LABS: HGB 12.2 g/dL (13.5-17.5); MCV 82.5 fL (80-95); MPV 9.7 fL (8.0-11.0); Platelet Count 457 10^3/uL (130-400); RBC 5.09 10^6/uL (4.36-5.78); RDW 15.3 % (11.8-14.1); RDW-SD 46.3 fL; WBC 14.58 10^3/uL (4.4-10.8)
[2021-10-18 12:46] LABS: ALT 30 U/L (16-63); AST 12 U/L (15-37); Alkaline Phosphatase 150 U/L (46-116); Anion Gap 6.5 mmol/L (3-11); BUN 21 mg/dL (7-18); Bilirubin, Total 0.2 mg/dL (0.2-1.0); CO2 32.5 mmol/L (21.0-32.0); CREATININE 0.7 mg/dL (0.70-1.30); Calcium 8.6 mg/dL (8.5-10.1); Chloride 101 mmol/L (98-107); Cholesterol 273 mg/dL (<200); Glucose 103 mg/dL (74-106); HDL Cholesterol 41 mg/dL (40-60); Potassium 4.7 mmol/L (3.5-5.1); Sodium 140 mmol/L (136-145); TSH (W/Ref FT4) 0.76 uIU/mL (0.36-3.74); Total Protein 7.6 g/dL (6.4-8.2); Triglyceride 647 mg/dL (<150)
[2021-10-18 12:57] LABS: LDL CHOLESTEROL 134 mg/dL (<100)
== END 2021-10-18 11:04 | disposition home or self-care (01) ==
LOC: LBN 11:03
PROVIDERS: PCP Family Medicine; Visit Provider Family Medicine
DX: I47.1 Supraventricular tachycardia (principal); I10 Essential (primary) hypertension; K21.9 Gastro-esophageal reflux disease without esophagitis; E46 Unspecified protein-calorie malnutrition; Z86.2 Personal history of diseases of the blood and blood-forming organs and certain disorders involving the immune mechanism
CPT/HCPCS: 80053; 80061; 83721; 85027; 80162; 84443

== ENCOUNTER 2022-02-11 04:24 | Outpatient (CLI) | payer MEDICARE, MEDICAID, SELFPAY ==
[2022-02-11] MEDS: Albuterol HFA 18 GM 200 PUFF INH IH (10:59)
[2022-02-11] MEDS: Inhaler, Assist Device 1 EACH MC (10:59)
--- NOTE | 2022-02-11 16:19 | W.PFT ---
Date of service: 02/11/22 Time of Service: 10:03 Pulmonary Function Test Result Requesting Provider Emmanuelle Indications: COPD Interpretation Spirometry: There is very severe airflow limitation. Ther FVC is low. There is no significant bronchodilator response. Lung Volumes: There is air trapping. Diffusion Capacity: The diffusion is low. Airway Pressure: There isincreased airways resistance. Impression Severe airflow obstruction with a reduced diffusion and air trapping. This likely represent severe COPD with emphysema. When compared to 2019, the FEV1 and FVC have improved. Clinical Correlation therefore is recommended.
== END 2022-02-11 04:25 | disposition home or self-care (01) ==
PROVIDERS: PCP Family Medicine; Visit Provider Student in an Organized Health Care Education/Training Program
DX: R94.2 Abnormal results of pulmonary function studies (principal); J44.9 Chronic obstructive pulmonary disease, unspecified; R06.09 Other forms of dyspnea; Z87.891 Personal history of nicotine dependence
CPT/HCPCS: 94060; 94726; 94729

== ENCOUNTER → 2022-02-21 02:06 | Outpatient (CLI) | payer MEDICARE, MEDICAID, SELFPAY ==
--- NOTE | 2022-02-21 08:40 | DI.CTLCSR_ITS ---
Exam(s) CT CHEST LUNG CANCER SCREEN EXAM: CT CHEST LUNG CANCER SCREEN CLINICAL HISTORY: Screening for lung cancer,FORMER SMOKER, Z87.891 TECHNIQUE: Imaging Protocol: Axial computed tomography images with coronal and sagittal reformatted images were created and reviewed. Low dose screening protocol. COMPARISON: CT CT CHEST PE CTA from 02/13/2019 FINDINGS: Tracheobronchial tree: Mild bronchial wall thickening bilateral lower lobes, right greater than left. Mild bronchiectasis right upper and lower lobes with mucus plugging a few distal bronchi at the pos terior base Mediastinum and Radha: No dominant adenopathy or fluid collection. Pulmonary parenchyma: No consolidation or dominant measurable mass. Moderate emphysematous changes. Right upper and lower lobe scarring Lung Nodules: 2 tiny stable nodules posterior right lung base. Pleura: No effusion. No pneumothorax. Heart: The heart is not dilated. Mild coronary artery calcifications are seen. Aorta: Thoracic aorta non-dilated. Upper abdomen: Cholelithiasis. Bones: Unremarkable for age. Soft Tissues: Unremarkable. IMPRESSION: No suspicious pulmonary nodules. Stable tiny nodules right posterior lung base. Emphysematous whatley es and scarring greater right upper and lower lobes. Some bronchiectasis . Mild mucous plugging pos terior right lung base. Lung RADS Cat 2 - Benign Appearance / Behavior: Nodules with a very low likelihood of becoming a clin ically active cancer due to size or lack of growth Lung-RADS 1.0 CATEGORIES: Category 0 - Prior chest CT exam(s) being located for comparison. Category 1 - Annual screening in 12 months. No nodules or definitely benign nodules. Category 2 - Annual screening in 12 months. Benign appearance. Nodules with low likelihood of becomin g active cancer. Category 3 - 6-month follow-up. Probably benign. Short-term follow-up suggested. Nodules with low lik elihood of becoming active cancer. Category 4A - 3-month follow-up and CT/PET if >8 mm in size. Suspicious finding. Findings which requi re additional testing. Category 4B - Findings which require additional testing and tissue sampling. Category 4X - Category 3 or 4 nodules with additional features or imaging findings that increases the suspicion of malignancy. Modifier S- Potentially clinically significant findings (non lung cancer) RADIATION DOSE DELIVERED: 88.24mGy.cm Total DLP 1.84mGy CTDIvol DATA REPOSITORY: All CT scans at this facility are submitted to the National Radiology Data Registry (NRDR) Dose Index Registry (DIR) with the [employer] (ACR). RADIATION OPTIMIZATION: All CT scans at this facility use at least one of these dose optimization te chniques: automated exposure control; mA and/or kV adjustment per patient size (includes targeted exa ms where dose is matched to clinical indication); or iterative reconstruction.
== END ==
PROVIDERS: PCP Family Medicine; Visit Provider Student in an Organized Health Care Education/Training Program
DX: Z87.891 Personal history of nicotine dependence (principal); Z12.2 Encounter for screening for malignant neoplasm of respiratory organs; J47.9 Bronchiectasis, uncomplicated; J43.9 Emphysema, unspecified
CPT/HCPCS: 71271

== ENCOUNTER 2022-04-17 18:54 | Outpatient (REF) | payer MEDICARE, MEDICAID, SELFPAY ==
[2022-04-19 11:20] LABS: COVID-19 RT-PCR UVMMC Result Negative (Negative)
== END 2022-04-17 18:55 | disposition home or self-care (01) ==
LOC: LBN 18:54
PROVIDERS: PCP Family Medicine; Visit Provider Student in an Organized Health Care Education/Training Program
DX: Z20.822 Contact with and (suspected) exposure to COVID-19 (principal)
CPT/HCPCS: U0003

== ENCOUNTER 2022-04-18 01:08 | Inpatient (IN) | payer MEDICARE, MEDICAID, SELFPAY ==
[2022-04-18] VITALS (76 sets, daily range): BP systolic 132–164; BP diastolic 68–82; PULSE 66–117; RESP 4–25; TEMP 36.4–37.1; O2SAT 90–97
--- NOTE | 2022-04-18 01:00 | RT.EKG_ITS ---
APPROVED REPORT Exam: Resting ECG Reason for Exam: short of breath Patient Location: E HR:73 bpm ECG Measurements Heart Rate 73 AXIS MO 143 P 70 QRSd 85 QRS 74 QT 364 T 62 QTc 402 Conclusion Sinus rhythm...normal P axis, V-rate 60- 99 Physician: stable, no stemi
--- NOTE | 2022-04-18 01:15 | DI.RAD_ITS ---
Exam(s) XR PORTABLE CHEST AP EXAM: XR PORTABLE CHEST AP CLINICAL HISTORY: cough, fever, r/o pneumonia TECHNIQUE: 2D digital imaging was performed of the chest. Images were obtained. PA and lateral v iews were obtained. COMPARISON: CR XR PORTABLE CHEST AP from 06/02/2019 FINDINGS: MEDIASTINUM: Normal. HEART: Normal. PULMONARY VASCULATURE: Normal. LUNGS: Underlying chronic scarring is seen in the lung bases. There does however appear to be increa sed opacity in the lung bases, right greater than left. The lungs are hyperinflated consistent with underlying COPD. PLEURAL SPACE: No pleural effusion or pneumothorax. BONE:Within normal limits for the patient's age. OTHER FINDINGS:Normal. IMPRESSION: 1. Bilateral basilar opacities, right greater than left. This is concerning for pneumonia. 2. Underlying COPD and pulmonary fibrosis. DATA REPOSITORY: RADIATION DOSE DELIVERED:
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
[2022-04-18] MEDS: Levalbuterol 1.25 MG/3 ML UPD VIAL 2.5 MG UPD (01:56)
[2022-04-18] MEDS: methylPREDNISolone SUCC 125 MG VIAL IVP (01:56)
[2022-04-18 02:03] LABS: COVID-19 PCR Negative (Negative); Influenza A PCR Negative (Negative); Influenza B PCR Negative (Negative); RSV PCR Negative (Negative)
[2022-04-18 02:06] LABS: Source Nasopharynx
[2022-04-18 02:28] LABS: Digoxin 0.35 ng/mL (0.90-2.00)
[2022-04-18 02:35] LABS: NT-proBNP 30 pg/mL (<300); Troponin I < 50 ng/L (<or=60)
[2022-04-18 02:41] LABS: BE (Venous) 7 mmol/L (-2-3); HCO3 (Venous) 32 mmol/L (23-28); O2 Sat (Venous) 95 %; TCO2 (Venous) 30 mmol/L (24-29); pCO2 (Venous) 56 mmHg (41-51); pH (Venous) 7.37 (7.31-7.41); pO2 (Venous) 77 mmHg
[2022-04-18 02:43] LABS: HCT 39.7 % (40.0-50.0); HGB 11.9 g/dL (13.5-17.5); MCH 24.6 pg (27.0-33.0); MCV 82 fL (80-95); MPV 9.1 fL (8.0-11.0); Platelet Count 260 10^3/uL (130-400); RBC 4.84 10^6/uL (4.36-5.78); RDW 16.4 % (11.8-14.1); RDW-SD 49.2 fL; WBC 11.46 10^3/uL (4.4-10.8)
[2022-04-18] MEDS: cefTRIAXone 2 GM/50 ML BAG IVPB (02:49)
[2022-04-18 02:56] LABS: INR 0.9 (0.9-1.1); PTT Activated 26.4 sec (21.0-27.5); Prothrombin Time 9.3 sec (9.3-11.0)
--- NOTE | 2022-04-18 03:07 | SUR.PHASEII ---
0300: Pt monitor alarming for VTACH w/ abnormal EKG tracing noted w/18 beat run of what appears to be SVT w/ aberrancy, self resolving. RN to bedside. Pt resting quietly on stretcher. Denies chest pain but states he's 'felt some fluttering stuff but it's gone now' in his chest. Abnormal rhythm resolved. VSS. MD Brown updated and aware. No further orders at this time. Will continue to monitor.
[2022-04-18] MEDS: DOXYCYCLINE 100 MG in Normal Saline 100 ML IVPB ×3 (03:25→20:21)
[2022-04-18 03:27] LABS: Absolute Lymphocyte Count 1.26 10^3/uL (1.2-3.4); Absolute Monocyte Count 1.03 10^3/uL (0.1-0.8); Absolute Neutrophil Count 8.25 10^3/uL (1.2-6.7)
[2022-04-18 03:28] LABS: Absolute Basophil Count 0.34 10^3/uL (0.0-0.2); Absolute Eosinophil Count 0.57 10^3/uL (0.0-0.7); Diff Comment Manual Differential; RBC Morphology Normal
[2022-04-18 03:34] LABS: ALT 28 U/L (16-63); AST 12 U/L (15-37); Albumin 3.6 g/dL (3.4-5.0); Alkaline Phosphatase 145 U/L (46-116); Anion Gap 5.5 mmol/L (3-11); BUN 17 mg/dL (7-18); Bilirubin, Total 0.2 mg/dL (0.2-1.0); CO2 32.5 mmol/L (21.0-32.0); CREATININE 0.7 mg/dL (0.70-1.30); Calcium 8.6 mg/dL (8.5-10.1); Chloride 102 mmol/L (98-107); Estimated GFR 101.62 (mL/min/1.73m2); Glucose 124 mg/dL (74-106); Potassium 3.9 mmol/L (3.5-5.1); Sodium 140 mmol/L (136-145); Total Protein 6.8 g/dL (6.4-8.2)
[2022-04-18 04:44] LABS: Bilirubin Negative (Negative); Blood Negative (Negative); Clarity Clear (Clear); Glucose Negative (Negative); Ketones Negative (Negative); Leukocyte Esterase Negative (Negative); Nitrite Negative (Negative); Specific Gravity >= 1.030 (1.005-1.025); Urobilinogen 0.2 EU/dL (Up TO 0.2)
--- NOTE | 2022-04-18 05:26 | DI.VRAD_ITS ---
PROCEDURE INFORMATION: Exam: XR Chest Exam date and time: 04/18/2022 2:10 AM Age: 67 years old Clinical indication: Cough and fever; Additional info: Cough, fever TECHNIQUE: Imaging protocol: Radiologic exam of the chest. Views: 1 view. COMPARISON: CT CHEST LUNG CANCER SCREEN 02/21/2022 8:36 AM FINDINGS: Lungs: Emphysematous changes. Patchy infiltrates in right perihilar and bibasilar regions, superimposed on areas of scarring. Pleural spaces: No pneumothorax or sizable pleural effusion. Heart/Mediastinum: Mildly prominent cardiac silhouette. Bones/joints: No acute abnormality. IMPRESSION: Emphysematous changes. Patchy infiltrates in right perihilar and bibasilar regions, superimposed on areas of scarring, and concerning for pneumonia. Dictated and Authenticated by: Dilcia Walls MD. Ordering:TATIANA Rios MD
[2022-04-18 05:44] LABS: Bacteria Negative HPF (Negative); C & S Indicated? No; Casts 3-5 Hyaline LPF (Negative); Crystals Negative HPF (Negative); Epithelial Cells Rare HPF (Negative); Mucus Heavy (Negative); RBC Negative HPF (0-2); WBC Negative HPF (0-5)
[2022-04-18 06:39] LABS: Troponin I < 50 ng/L (<or=60)
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
[2022-04-18] MEDS: Budesonide/Formoterol 160/4.5 6 GM 60 PUFF INH IH ×2 (08:04→20:25)
[2022-04-18] MEDS: Tiotropium Bromide-Respimat 10 PUFF INH 2 PUFF IH (08:05)
[2022-04-18 08:06] LABS: TSH (W/Ref FT4) 0.25 uIU/mL (0.36-3.74)
[2022-04-18] MEDS: cefTRIAXone 1 GM/50 ML BAG IVPB (08:17)
[2022-04-18] MEDS: dilTIAZem CD 120 MG CAPCR PO ×2 (08:17→20:21)
[2022-04-18] MEDS: Enoxaparin 40 MG/0.4 ML SYR SC (08:17)
[2022-04-18] MEDS: Aspirin 325 MG TAB PO (08:18)
[2022-04-18] MEDS: Digoxin 0.125 MG TAB PO (08:18)
[2022-04-18] MEDS: guaiFENesin 600 MG TABCR PO ×2 (08:18→20:21)
[2022-04-18] MEDS: Roflumilast 500 MCG TAB PO (08:18)
[2022-04-18] MEDS: Omeprazole 20 MG CAPCR PO (08:19)
[2022-04-18] MEDS: Ascorbic Acid 500 MG TAB PO (08:19)
[2022-04-18 08:22] LABS: Lab Add On Test DONE
[2022-04-18 09:14] LABS: Procalcitonin < 0.1 ng/mL
[2022-04-18] MEDS: Ipratropium 0.5 MG/2.5 ML UPD VIAL 0.25 MG IH ×4 (09:25→20:25)
[2022-04-18] MEDS: Levalbuterol 1.25 MG/3 ML UPD VIAL UPD ×3 (09:28→17:59)
[2022-04-18] MEDS: methylPREDNISolone SUCC 125 MG VIAL 80 MG IVP ×2 (09:49→16:59)
--- NOTE | 2022-04-18 10:43 | RESPIRATORY ---
Patient has a NHV (Trilogy) with [facility] and did not bring in device with him this hospitalization. Patient stated he's unable to obtain supplies in the last five months even though [facility] ([facility] has been trying. RT called Abby Cortez to see what's need to get a new supply order in order for patient to continue to use device. Abby Cortez looking into if any paperwork need to for patient or MD to sign along with if insurance has changed causing him to not being able to obtain suppliers. Patient uses 2-3 L of O2 continuously, DME is [facility].
[2022-04-18 12:11] LABS: FREE T4 1.02 ng/dL (0.76-1.46)
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
[2022-04-18] MEDS: Normal Saline Flush 10 ML SYR IVP ×2 (16:59→20:20)
--- NOTE | 2022-04-18 18:33 | PGE_ITS ---
Date of Service Date of service: 04/18/22 Time of Service: 18:34 Subjective Subjective Interval history since last seen: Dave states that he is feeling better today. His breathing is getting better. His trilogy machine was brought to the hospital and he is using it at the time of my visit with him. He denies CP, nausea, dizziness. Evidently, his trilogy machine has not had new supplies in 5 months. His respiratory care company had not been able to get in touch him for that duration of time and was notified of his presence in the hospital. Continue scheduled + prn nebs, symbicort, mucolytics. Decrease steroids - prednisone 40 mg daily. Obtain sputum culture, urine for legionella and strep antigens, mycoplasma sputum. Has a h/o pseudomonas - would change ceftriaxone to cefepime. Objective Last Vital Signs Temp 36.9 C 04/18/22 15:38 Pulse 111 H 04/18/22 18:17 Resp 24 04/18/22 18:17 BP 164/80 H 04/18/22 15:38 Pulse Ox 90 L 04/18/22 18:17 Laboratory Results - last 24 hr 04/18/22 04/18/22 04/18/22 01:15 01:15 01:16 WBC Cancelled RBC Cancelled Hgb Cancelled Hct Cancelled MCV Cancelled MCH Cancelled MCHC Cancelled RDW Cancelled Plt Count Cancelled MPV Cancelled Immature Gran % Cancelled Neutrophils % Cancelled Band Neutrophils % Cancelled Lymphocytes % Cancelled Atypical Lymphs % Cancelled Monocytes % Cancelled Eosinophils % Cancelled Basophils % Cancelled Metamyelocytes % Cancelled Myelocytes % Cancelled Promyelocytes % Cancelled Other Cells % Cancelled Nucleated RBC % Cancelled Absolute Neutrophils Cancelled Absolute Lymphocytes Cancelled Absolute Monocytes Cancelled Absolute Eosinophils Cancelled Absolute Basophils Cancelled RBC Morphology Cancelled Polychromasia Cancelled Hypochromasia Cancelled Poikilocytosis Cancelled Basophilic Stippling Cancelled Anisocytosis Cancelled Microcytosis Cancelled Macrocytosis Cancelled Spherocytes Cancelled Tear Drop Cells Cancelled Ovalocytes Cancelled Stomatocytes Cancelled Cloud-Hansell Bodies Cancelled Vining Cells/Echinocytes Cancelled Acanthocytes (Spur) Cancelled Schistocytes Cancelled PT Cancelled INR Cancelled APTT Cancelled VBG pH Cancelled VBG pCO2 Cancelled VBG pO2 Cancelled VBG HCO3 Cancelled VBG Total CO2 Cancelled VBG O2 Saturation Cancelled VBG Base Excess Cancelled Sodium Potassium Chloride Carbon Dioxide Anion Gap BUN Creatinine Est GFR (CKD-EPI 2020) Glucose Calcium Total Bilirubin AST ALT Alkaline Phosphatase Troponin I NT-Pro-B Natriuret Pep Total Protein Albumin Procalcitonin TSH Free T4 Urine Color Urine Clarity Urine pH Ur Specific Hayti Urine Protein Urine Ketones Urine Blood Urine Nitrite Urine Bilirubin Urine Urobilinogen Ur Leukocyte Esterase Urine RBC Urine WBC Ur Epithelial Cells Urine Crystals Urine Bacteria Urine Casts Urine Mucus Ur Culture Indicated? Urine Glucose Digoxin COVID-19 Source SARS-CoV-2 (PCR) Influenza Type A (PCR) Influenza Type B (PCR) RSV (PCR) Add-On Test Request 04/18/22 04/18/22 04/18/22 01:20 01:59 01:59 WBC RBC Hgb Hct MCV MCH MCHC RDW Plt Count MPV Immature Gran % Neutrophils % Band Neutrophils % Lymphocytes % Atypical Lymphs % Monocytes % Eosinophils % Basophils % Metamyelocytes % Myelocytes % Promyelocytes % Other Cells % Nucleated RBC % Absolute Neutrophils Absolute Lymphocytes Absolute Monocytes Absolute Eosinophils Absolute Basophils RBC Morphology Polychromasia Hypochromasia Poikilocytosis Basophilic Stippling Anisocytosis Microcytosis Macrocytosis Spherocytes Tear Drop Cells Ovalocytes Stomatocytes Cloud-Hansell Bodies Bibi Cells/Echinocytes Acanthocytes (Spur) Schistocytes PT INR APTT VBG pH VBG pCO2 VBG pO2 VBG HCO3 VBG Total CO2 VBG O2 Saturation VBG Base Excess Sodium Potassium Chloride Carbon Dioxide Anion Gap BUN Creatinine Est GFR (CKD-EPI 2020) Glucose Calcium Total Bilirubin AST ALT Alkaline Phosphatase Troponin I < 50 NT-Pro-B Natriuret Pep 30 Total Protein Albumin Procalcitonin TSH Free T4 Urine Color Urine Clarity Urine pH Ur Specific Hayti Urine Protein Urine Ketones Urine Blood Urine Nitrite Urine Bilirubin Urine Urobilinogen Ur Leukocyte Esterase Urine RBC Urine WBC Ur Epithelial Cells Urine Crystals Urine Bacteria Urine Casts Urine Mucus Ur Culture Indicated? Urine Glucose Digoxin 0.35 L COVID-19 Source Nasopharynx SARS-CoV-2 (PCR) Negative Influenza Type A (PCR) Negative Influenza Type B (PCR) Negative RSV (PCR) Negative Add-On Test Request 04/18/22 04/18/22 04/18/22 02:35 02:35 02:35 WBC 11.46 H RBC 4.84 Hgb 11.9 L Hct 39.7 L MCV 82 MCH 24.6 L MCHC 30.0 L RDW 16.4 H Plt Count 260 MPV 9.1 Immature Gran % 0.0 Neutrophils % 72.0 Band Neutrophils % Lymphocytes % 11.0 Atypical Lymphs % Monocytes % 9.0 Eosinophils % 5.0 Basophils % 3.0 Metamyelocytes % Myelocytes % Promyelocytes % Other Cells % Nucleated RBC % 0.0 Absolute Neutrophils 8.25 H Absolute Lymphocytes 1.26 Absolute Monocytes 1.03 H Absolute Eosinophils 0.57 Absolute Basophils 0.34 H RBC Morphology Normal Polychromasia Hypochromasia Poikilocytosis Basophilic Stippling Anisocytosis Microcytosis Macrocytosis Spherocytes Tear Drop Cells Ovalocytes Stomatocytes Cloud-Hansell Bodies Bibi Cells/Echinocytes Acanthocytes (Spur) Schistocytes PT 9.3 INR 0.9 APTT 26.4 VBG pH 7.37 VBG pCO2 56 H VBG pO2 77 VBG HCO3 32 H VBG Total CO2 30 H VBG O2 Saturation 95 VBG Base Excess 7 H Sodium Potassium Chloride Carbon Dioxide Anion Gap BUN Creatinine Est GFR (CKD-EPI 2020) Glucose Calcium Total Bilirubin AST ALT Alkaline Phosphatase Troponin I NT-Pro-B Natriuret Pep Total Protein Albumin Procalcitonin TSH Free T4 Urine Color Urine Clarity Urine pH Ur Specific Hayti Urine Protein Urine Ketones Urine Blood Urine Nitrite Urine Bilirubin Urine Urobilinogen Ur Leukocyte Esterase Urine RBC Urine WBC Ur Epithelial Cells Urine Crystals Urine Bacteria Urine Casts Urine Mucus Ur Culture Indicated? Urine Glucose Digoxin COVID-19 Source SARS-CoV-2 (PCR) Influenza Type A (PCR) Influenza Type B (PCR) RSV (PCR) Add-On Test Request 04/18/22 04/18/22 04/18/22 02:35 04:36 05:56 WBC RBC Hgb Hct MCV MCH MCHC RDW Plt Count MPV Immature Gran % Neutrophils % Band Neutrophils % Lymphocytes % Atypical Lymphs % Monocytes % Eosinophils % Basophils % Metamyelocytes % Myelocytes % Promyelocytes % Other Cells % Nucleated RBC % Absolute Neutrophils Absolute Lymphocytes Absolute Monocytes Absolute Eosinophils Absolute Basophils RBC Morphology Polychromasia Hypochromasia Poikilocytosis Basophilic Stippling Anisocytosis Microcytosis Macrocytosis Spherocytes Tear Drop Cells Ovalocytes Stomatocytes Cloud-Hansell Bodies Bibi Cells/Echinocytes Acanthocytes (Spur) Schistocytes PT INR APTT VBG pH VBG pCO2 VBG pO2 VBG HCO3 VBG Total CO2 VBG O2 Saturation VBG Base Excess Sodium 140 Potassium 3.9 Chloride 102 Carbon Dioxide 32.5 H Anion Gap 5.5 BUN 17 Creatinine 0.7 Est GFR (CKD-EPI 2020) 101.62 Glucose 124 H Calcium 8.6 Total Bilirubin 0.2 AST 12 L ALT 28 Alkaline Phosphatase 145 H Troponin I < 50 NT-Pro-B Natriuret Pep Total Protein 6.8 Albumin 3.6 Procalcitonin TSH Free T4 Urine Color Yellow Urine Clarity Clear Urine pH 6.0 Ur Specific Hayti >= 1.030 H Urine Protein Trace H Urine Ketones Negative Urine Blood Negative Urine Nitrite Negative Urine Bilirubin Negative Urine Urobilinogen 0.2 Ur Leukocyte Esterase Negative Urine RBC Negative Urine WBC Negative Ur Epithelial Cells Rare Urine Crystals Negative Urine Bacteria Negative Urine Casts 3-5 Hyaline Urine Mucus Heavy Ur Culture Indicated? No Urine Glucose Negative Digoxin COVID-19 Source SARS-CoV-2 (PCR) Influenza Type A (PCR) Influenza Type B (PCR) RSV (PCR) Add-On Test Request 04/18/22 04/18/22 04/18/22 05:56 05:56 05:56 WBC RBC Hgb Hct MCV MCH MCHC RDW Plt Count MPV Immature Gran % Neutrophils % Band Neutrophils % Lymphocytes % Atypical Lymphs % Monocytes % Eosinophils % Basophils % Metamyelocytes % Myelocytes % Promyelocytes % Other Cells % Nucleated RBC % Absolute Neutrophils Absolute Lymphocytes Absolute Monocytes Absolute Eosinophils Absolute Basophils RBC Morphology Polychromasia Hypochromasia Poikilocytosis Basophilic Stippling Anisocytosis Microcytosis Macrocytosis Spherocytes Tear Drop Cells Ovalocytes Stomatocytes Cloud-Hansell Bodies Bibi Cells/Echinocytes Acanthocytes (Spur) Schistocytes PT INR APTT VBG pH VBG pCO2 VBG pO2 VBG HCO3 VBG Total CO2 VBG O2 Saturation VBG Base Excess Sodium Potassium Chloride Carbon Dioxide Anion Gap BUN Creatinine Est GFR (CKD-EPI 2020) Glucose Calcium Total Bilirubin AST ALT Alkaline Phosphatase Troponin I NT-Pro-B Natriuret Pep Total Protein Albumin Procalcitonin < 0.1 TSH 0.25 L Free T4 1.02 Urine Color Urine Clarity Urine pH Ur Specific Hayti Urine Protein Urine Ketones Urine Blood Urine Nitrite Urine Bilirubin Urine Urobilinogen Ur Leukocyte Esterase Urine RBC Urine WBC Ur Epithelial Cells Urine Crystals Urine Bacteria Urine Casts Urine Mucus Ur Culture Indicated? Urine Glucose Digoxin COVID-19 Source SARS-CoV-2 (PCR) Influenza Type A (PCR) Influenza Type B (PCR) RSV (PCR) Add-On Test Request DONE
[2022-04-18] MEDS: CEFEPIME 2 GM in Normal Saline 100 ML IVPB (20:22)
[2022-04-18 22:41] LABS: Legionella Ag Detection Urine Negative (Negative)
[2022-04-19] VITALS (14 sets, daily range): BP systolic 144–178; BP diastolic 74–102; PULSE 77–111; RESP 4–22; TEMP 36.3–36.9; O2SAT 91–94
[2022-04-19] MEDS: Ipratropium 0.5 MG/2.5 ML UPD VIAL 0.25 MG IH ×6 (01:26→20:43)
[2022-04-19] MEDS: CEFEPIME 2 GM in Normal Saline 100 ML IVPB ×3 (03:45→19:41)
[2022-04-19] MEDS: Budesonide/Formoterol 160/4.5 6 GM 60 PUFF INH IH ×2 (05:54→19:39)
[2022-04-19 06:53] LABS: Abs Immature Grans 0.25 10^3/uL (0.0-0.06); Basophils % 0.2; HGB 12.4 g/dL (13.5-17.5); Immature Grans % 1.3; Lymphocytes % 7.5; MCH 24.8 pg (27.0-33.0); MCV 80 fL (80-95); MPV 9.5 fL (8.0-11.0); Monocytes % 6.8; Neutrophils % 84.2; Platelet Count 314 10^3/uL (130-400); RBC 4.99 10^6/uL (4.36-5.78); RDW 16.7 % (11.8-14.1); WBC 19.18 10^3/uL (4.4-10.8)
[2022-04-19 06:58] LABS: Absolute Basophil Count 0.04 10^3/uL (0.0-0.2); Absolute Lymphocyte Count 1.44 10^3/uL (1.2-3.4); Absolute Neutrophil Count 16.15 10^3/uL (1.2-6.7)
[2022-04-19 07:13] LABS: ALT 30 U/L (16-63); AST 8 U/L (15-37); Albumin 3.5 g/dL (3.4-5.0); Alkaline Phosphatase 131 U/L (46-116); Anion Gap 5.9 mmol/L (3-11); BUN 22 mg/dL (7-18); Bilirubin, Total 0.2 mg/dL (0.2-1.0); CO2 30.1 mmol/L (21.0-32.0); CREATININE 0.9 mg/dL (0.70-1.30); Calcium 9.1 mg/dL (8.5-10.1); Chloride 100 mmol/L (98-107); Estimated GFR 94.19 (mL/min/1.73m2); Glucose 164 mg/dL (74-106); Magnesium 1.8 mg/dL (1.8-2.4); Potassium 4.2 mmol/L (3.5-5.1); Sodium 136 mmol/L (136-145); Total Protein 7.5 g/dL (6.4-8.2)
[2022-04-19] MEDS: Omeprazole 20 MG CAPCR PO (07:49)
[2022-04-19] MEDS: dilTIAZem CD 120 MG CAPCR PO ×2 (07:49→19:39)
[2022-04-19] MEDS: Roflumilast 500 MCG TAB PO (07:49)
[2022-04-19] MEDS: Ascorbic Acid 500 MG TAB PO (07:49)
[2022-04-19] MEDS: Digoxin 0.125 MG TAB PO (07:50)
[2022-04-19] MEDS: Enoxaparin 40 MG/0.4 ML SYR SC (07:50)
[2022-04-19] MEDS: guaiFENesin 600 MG TABCR PO ×2 (07:50→19:39)
[2022-04-19] MEDS: predniSONE 20 MG TAB 40 MG PO (07:50)
[2022-04-19] MEDS: Aspirin 325 MG TAB PO (07:50)
[2022-04-19] MEDS: DOXYCYCLINE 100 MG in Normal Saline 100 ML IVPB ×2 (07:51→20:43)
[2022-04-19] MEDS: Normal Saline Flush 10 ML SYR IVP ×4 (07:51→19:42)
[2022-04-19] MEDS: Tiotropium Bromide-Respimat 10 PUFF INH 2 PUFF IH (07:57)
[2022-04-19] MEDS: Levalbuterol 1.25 MG/3 ML UPD VIAL UPD ×4 (07:58→19:40)
--- NOTE | 2022-04-19 11:33 | CMPROGNOTE_ITS ---
- If Service Date Differs Date of service: 04/19/22 Time of Service: 11:34 Care Management Progress Note S/O: Per respiratory, supplies will be delivered today with paperwork that Dave needs to sign from [facility]. Dave stated to CM that one of his primary concerns is getting a phone. He reported that he has access to a phone, but he does not have privacy to use it, as Lesly will remain in the room when he uses the phone. CM reviewed his chart and it appears that [facility]enee has already connected with Dave regarding a phone, and they are not able to obtain one for him. They are looking into assisting him with [employer]. Per report, he is not yet medically cleared. CM will continue to follow. A: Dave is a 67 year old male admitted to [facility] on 04/18/22 with COPD exacerbation, community acquired pneumonia. P: Dave will be discharged home when medically cleared by provider with a resumption of home oxygen, MOW, and CFC - moderate needs. He will follow up with his PCP and discharge plan of care as directed. Transport home will either be via private vehicle with his son or RCT arranged by CM. Dave states neither Lesly nor his daughter drive. CM will continue to support patient and discharge planning needs.
--- NOTE | 2022-04-19 12:56 | NUR.NOTE ---
Nursing Note: This morning when giving AM meds, patient was observed by this scribe taking his pills and didn't appear to drop any. After patient swallowed his morning meds without any issue, this scribe went to refill the patients water and then came back into the room. The patient handed me a pill and said he found it in his gown and that it was dropped last night. Respiratory therapist was at the bedside at this time. Charge nurse also made aware.
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
--- NOTE | 2022-04-19 13:42 | RESPIRATORY ---
Patient very compliant with his Trilogy machine. Patient does all HHN's through the mouthpiece ventilation mode on this machine. Patient just recieved his new supplies from [facility].
--- NOTE | 2022-04-19 15:42 | CHAPLAIN ---
Dave was in bed when I visited. After I introduced myself, he said he didn't know why I would visit him. I offered some suggestions, but he wasn't interested in further conversation. He was waiting for his nurse to return and grumbling about something his nurse was supposed to take care of, and Dave didn't think it was happening quickly enough.
--- NOTE | 2022-04-19 16:59 | W.PM.PROGNOT ---
Date of Service Date of service: 04/19/22 Time of Service: 16:59 Assessment and Plan Assessment and plan (1) COPD exacerbation: Start date: 04/17/22 Status: Acute Assessment and plan: Due to pneumonia, present on admission. Improving. on 2L of O2 by NC when not on Trilogy. Continue steroids (switched to prednisone 40 mg PO daily), as well as antibiotics, nebs, mucolytics. Evaluated by palliative care. He is full code. (2) Pneumonia: Start date: 04/17/22 Status: Acute Assessment and plan: Continue doxycycline + cefepime. Sputum cx so far with nml kandis. (3) Hypoxemia: Start date: 04/17/22 Status: Acute Assessment and plan: Acute on chronic, Appears to be near baseline. Will need exercise oximetry prior to d/c. (4) Paroxysmal atrial fibrillation: Status: Chronic Assessment and plan: Appears to be in a regularly regular rhythm at this time. Continue digoxin, diltiazem. Not on anticoagulation. Dig level low. (5) DVT prophylaxis: Status: Acute Assessment and plan: SC enoxaparin (6) Discharge planning issues: Status: Acute Assessment and plan: Full code Palliative care on board. C/s speech therapy due to the speech impediment for better communication strategies. Subjective Subjective Interval history since last seen: Dave states he is feeling a lot better today. His breathing is better. He still gets very short of breath when he takes his trilogy off. His trilogy paperwork was signed today. He denies dizziness, chest pain, nausea. Exam Narrative Exam Narrative: General: Pleasant anxious middle-aged male with a speech impediment who looks better than yesterday, spends a part of the exam on the Trilogy HEENT: EOMI, MMM Heart: RRR, no m/r/g Lungs: diminished breath sounds B Abdomen: soft, nontender, nondistended Extremities: no edema BLEs Objective Last Vital Signs Temp 36.5 C 04/19/22 16:04 Pulse 104 H 04/19/22 16:04 Resp 18 04/19/22 16:04 BP 171/83 H 04/19/22 16:04 Pulse Ox 94 04/19/22 16:04 Laboratory Results - last 24 hr 10/13/22 10/14/22 10/14/22 09:45 06:41 06:41 WBC 19.18 H RBC 4.99 Hgb 12.4 L Hct 40.0 MCV 80 MCH 24.8 L MCHC 31.0 L RDW 16.7 H Plt Count 314 MPV 9.5 Immature Gran % 1.3 Neutrophils % 84.2 Lymphocytes % 7.5 Monocytes % 6.8 Eosinophils % 0.0 Basophils % 0.2 Nucleated RBC % 0.0 Absolute Neutrophils 16.15 H Absolute Lymphocytes 1.44 Absolute Monocytes 1.30 H Absolute Eosinophils 0.00 Absolute Basophils 0.04 Sodium 136 Potassium 4.2 Chloride 100 Carbon Dioxide 30.1 Anion Gap 5.9 BUN 22 H Creatinine 0.9 Est GFR (CKD-EPI 2020) 94.19 Glucose 164 H Calcium 9.1 Magnesium 1.8 Total Bilirubin 0.2 AST 8 L ALT 30 Alkaline Phosphatase 131 H Total Protein 7.5 Albumin 3.5 Urine Legionella Ag Negative
[2022-04-19 22:49] LABS: Streptococcus Pneumoniae Ag, U Negative (Negative)
[2022-04-20] VITALS (9 sets, daily range): BP systolic 154–178; BP diastolic 80–93; PULSE 91–100; RESP 4–22; TEMP 36.1–36.7; O2SAT 89–95
[2022-04-20] MEDS: Ipratropium 0.5 MG/2.5 ML UPD VIAL 0.25 MG IH ×6 (01:07→21:00)
[2022-04-20] MEDS: CEFEPIME 2 GM in Normal Saline 100 ML IVPB ×3 (03:42→21:01)
[2022-04-20 07:11] LABS: Abs Immature Grans 0.22 10^3/uL (0.0-0.06); Absolute Basophil Count 0.04 10^3/uL (0.0-0.2); Absolute Lymphocyte Count 1.97 10^3/uL (1.2-3.4); Absolute Monocyte Count 1.57 10^3/uL (0.1-0.8); Absolute Neutrophil Count 16.29 10^3/uL (1.2-6.7); Basophils % 0.2; HCT 38.4 % (40.0-50.0); HGB 11.4 g/dL (13.5-17.5); Immature Grans % 1.1; Lymphocytes % 9.8; MCH 24.1 pg (27.0-33.0); MCHC 29.7 % (32.0-36.0); MCV 81 fL (80-95); MPV 9.5 fL (8.0-11.0); Monocytes % 7.8; Neutrophils % 81.1; Platelet Count 347 10^3/uL (130-400); RBC 4.74 10^6/uL (4.36-5.78); RDW 16.7 % (11.8-14.1); WBC 20.09 10^3/uL (4.4-10.8)
[2022-04-20 07:24] LABS: Anion Gap 4.9 mmol/L (3-11); BUN 24 mg/dL (7-18); CO2 33.1 mmol/L (21.0-32.0); CREATININE 0.7 mg/dL (0.70-1.30); Calcium 8.8 mg/dL (8.5-10.1); Chloride 102 mmol/L (98-107); Estimated GFR 101.62 (mL/min/1.73m2); Glucose 130 mg/dL (74-106); Magnesium 1.8 mg/dL (1.8-2.4); Potassium 3.9 mmol/L (3.5-5.1); Sodium 140 mmol/L (136-145)
[2022-04-20] MEDS: Digoxin 0.125 MG TAB PO (07:45)
[2022-04-20] MEDS: Normal Saline Flush 10 ML SYR IVP ×2 (07:45→11:18)
[2022-04-20] MEDS: Roflumilast 500 MCG TAB PO (07:45)
[2022-04-20] MEDS: DOXYCYCLINE 100 MG in Normal Saline 100 ML IVPB ×2 (07:45→22:03)
[2022-04-20] MEDS: dilTIAZem CD 120 MG CAPCR PO ×2 (07:45→21:01)
[2022-04-20] MEDS: Aspirin 325 MG TAB PO (07:45)
[2022-04-20] MEDS: Enoxaparin 40 MG/0.4 ML SYR SC (07:45)
[2022-04-20] MEDS: predniSONE 20 MG TAB 40 MG PO (07:45)
[2022-04-20] MEDS: Ascorbic Acid 500 MG TAB PO (07:46)
[2022-04-20] MEDS: Omeprazole 20 MG CAPCR PO (07:46)
[2022-04-20] MEDS: guaiFENesin 600 MG TABCR PO ×2 (07:46→21:01)
[2022-04-20 07:52] LABS: Anisocytosis 1+; Diff Comment Agrees w/ Instrument; Hypochromasia 1+
[2022-04-20] MEDS: Budesonide/Formoterol 160/4.5 6 GM 60 PUFF INH IH ×2 (08:58→21:00)
[2022-04-20] MEDS: Tiotropium Bromide-Respimat 10 PUFF INH 2 PUFF IH (09:00)
--- NOTE | 2022-04-20 18:44 | W.PM.PROGNOT ---
Date of Service Date of service: 04/20/22 Time of Service: 18:44 Assessment and Plan Assessment and plan (1) COPD exacerbation: Status: Acute Assessment and plan: Due to pneumonia, present on admission. Improving. on 2L of O2 by NC when not on Trilogy. Will obtain exercise pulse ox. Continue prednisone 40 mg PO daily, as well as antibiotics, nebs, mucolytics. Evaluated by palliative care. He is full code. (2) Pneumonia: Status: Acute Assessment and plan: Continue doxycycline + cefepime (h/o pseudomonas). Sputum cx with nml kandis. Urine legionella and strep negative; mycoplasma pending. (3) Hypoxemia: Status: Acute Assessment and plan: Acute on chronic, Appears to be near baseline. Exercise oximetry ordered. (4) Paroxysmal atrial fibrillation: Status: Chronic Assessment and plan: Appears to be in a regularly regular rhythm at this time. Continue digoxin, diltiazem. Not on anticoagulation. Dig level low. (5) DVT prophylaxis: Status: Acute Assessment and plan: SC enoxaparin (6) Discharge planning issues: Status: Acute Assessment and plan: Full code Palliative care on board. Speech therapy recommendations: When possible ask Yes/No questions Ask patient to speak slowly If needed, patient prefers to write when others are unable to understand him rather than use a picture board. Subjective Subjective Interval history since last seen: Feels better. Denies dizziness, chest pain, states shortness of breath is near baseline, denies nausea. He thinks he might be ready for discharge home tomorrow. Exam Narrative Exam Narrative: General: Pleasant anxious middle-aged male who is sitting up in a chair in his underwear, on 2L of O2 by MS, no dyspnea/tachypnea HEENT: EOMI, MMM Heart: RRR, no m/r/g Lungs: diminished breath sounds B Abdomen: soft, nontender, nondistended Extremities: no edema BLEs Objective Last Vital Signs Temp 36.7 C 04/20/22 15:12 Pulse 92 H 04/20/22 15:12 Resp 22 04/20/22 16:47 BP 156/81 H 04/20/22 15:12 Pulse Ox 93 04/20/22 15:12 Laboratory Results - last 24 hr 04/18/22 04/20/22 04/20/22 09:45 06:25 06:25 WBC 20.09 H RBC 4.74 Hgb 11.4 L Hct 38.4 L MCV 81 MCH 24.1 L MCHC 29.7 L RDW 16.7 H Plt Count 347 MPV 9.5 Immature Gran % 1.1 Neutrophils % 81.1 Lymphocytes % 9.8 Monocytes % 7.8 Eosinophils % 0.0 Basophils % 0.2 Nucleated RBC % 0.0 Absolute Neutrophils 16.29 H Absolute Lymphocytes 1.97 Absolute Monocytes 1.57 H Absolute Eosinophils 0.00 Absolute Basophils 0.04 RBC Morphology See Below Hypochromasia 1+ Anisocytosis 1+ Sodium 140 Potassium 3.9 Chloride 102 Carbon Dioxide 33.1 H Anion Gap 4.9 BUN 24 H Creatinine 0.7 Est GFR (CKD-EPI 2020) 101.62 Glucose 130 H Calcium 8.8 Magnesium 1.8 Ur Strep pneumoniae Ag Negative
[2022-04-21] MEDS: Ipratropium 0.5 MG/2.5 ML UPD VIAL 0.25 MG IH ×3 (02:16→08:37)
[2022-04-21] MEDS: CEFEPIME 2 GM in Normal Saline 100 ML IVPB (03:38)
[2022-04-21 04:29] VITALS: BP 156/80; PULSE 89; RESP 22; TEMP 36.5; O2SAT 91
[2022-04-21 07:25] LABS: Abs Immature Grans 0.18 10^3/uL (0.0-0.06); Basophils % 0.2; Eosinophils % 0.2; HCT 41.4 % (40.0-50.0); HGB 12.4 g/dL (13.5-17.5); Lymphocytes % 20.6; MCH 24.3 pg (27.0-33.0); MCV 81 fL (80-95); MPV 9.3 fL (8.0-11.0); Monocytes % 9.6; Neutrophils % 68.4; Platelet Count 346 10^3/uL (130-400); RDW 16.6 % (11.8-14.1); WBC 17.65 10^3/uL (4.4-10.8)
[2022-04-21 07:32] LABS: Absolute Basophil Count 0.04 10^3/uL (0.0-0.2); Absolute Eosinophil Count 0.04 10^3/uL (0.0-0.7); Absolute Lymphocyte Count 3.64 10^3/uL (1.2-3.4); Absolute Monocyte Count 1.69 10^3/uL (0.1-0.8); Absolute Neutrophil Count 12.07 10^3/uL (1.2-6.7)
[2022-04-21 07:40] LABS: Anion Gap 5.3 mmol/L (3-11); BUN 24 mg/dL (7-18); CO2 33.7 mmol/L (21.0-32.0); CREATININE 0.7 mg/dL (0.70-1.30); Calcium 8.9 mg/dL (8.5-10.1); Chloride 104 mmol/L (98-107); Estimated GFR 101.62 (mL/min/1.73m2); Glucose 85 mg/dL (74-106); Magnesium 1.8 mg/dL (1.8-2.4); Potassium 3.7 mmol/L (3.5-5.1); Sodium 143 mmol/L (136-145)
[2022-04-21 07:58] LABS: Procalcitonin < 0.1 ng/mL
[2022-04-21 08:03] LABS: Anisocytosis 1+; Diff Comment Agrees w/ Instrument; Hypochromasia 1+
[2022-04-21] MEDS: dilTIAZem CD 120 MG CAPCR PO (08:20)
[2022-04-21 08:21] VITALS: PULSE 111
[2022-04-21] MEDS: Aspirin 325 MG TAB PO (08:21)
[2022-04-21] MEDS: guaiFENesin 600 MG TABCR PO (08:21)
[2022-04-21] MEDS: Omeprazole 20 MG CAPCR PO (08:21)
[2022-04-21] MEDS: Ascorbic Acid 500 MG TAB PO (08:21)
[2022-04-21] MEDS: Digoxin 0.125 MG TAB PO (08:21)
[2022-04-21] MEDS: Roflumilast 500 MCG TAB PO (08:22)
[2022-04-21] MEDS: Normal Saline Flush 10 ML SYR IVP (08:22)
[2022-04-21] MEDS: predniSONE 20 MG TAB 40 MG PO (08:22)
[2022-04-21] MEDS: Enoxaparin 40 MG/0.4 ML SYR SC (08:22)
[2022-04-21] MEDS: Budesonide/Formoterol 160/4.5 6 GM 60 PUFF INH IH (08:36)
[2022-04-21 08:37] VITALS: RESP 20; O2SAT 95
[2022-04-21] MEDS: Tiotropium Bromide-Respimat 10 PUFF INH 2 PUFF IH (08:37)
[2022-04-21] MEDS: Levalbuterol 1.25 MG/3 ML UPD VIAL UPD (08:37)
[2022-04-21 08:47] VITALS: BP 168/90; PULSE 61; RESP 20; TEMP 35.9; O2SAT 94
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
[2022-04-21] MEDS: levoFLOXacin 500 MG, levoFLOXacin 250 MG 750 MG PO (11:25)
--- NOTE | 2022-04-21 11:33 | CMDISCH_ITS ---
- If Service Date Differs Date of service: 04/21/22 Time of Service: 11:33 LACE Index Scoring Tool - Questions: Length of Stay (in days): 3 Acuity (Admit via E.D.?): Yes Comorbidities: Cerebrovascular Disease (HX TIA, S/P Craniectomy), Chronic Pulmonary Disease E.D. Visits: 1 - Answers: Total Score: 10 Risk of Readmission: High Risk Care Management Discharge Reason for Hospitalization: COPD exacerbation, community acquired pneumonia Discharge Plan: Dave is discharged home via [facility] private vehicle. RT provided patient with a O2 tank from [facility], prior to transport. New RX's are transmitted to [facility]. Dave is asked to call [facility] on Friday to schedule a Hospital F/U appt. Dave has follow up appointments with Dr. Handley on 05/15/22 and Palliative Care on 07/17/22, as scheduled. Patient/Family Education Needs: Review discharge instructions, limitations, medications and plan to follow up with community providers. Discuss ask me three. Services Needed at Discharge: Home Health Care Services (Resume RN, CM notified [facility] at .), Oxygen Therapy (Dave receives O2 through [facility] and O2 Supplies through [facility]. RT contact both companies prior to discharge. Per [facility], they have been trying to reach pt. Dave is aware that he needs to follow up with [facility] to complete paperwork and sign their contract.)
--- NOTE | 2022-04-21 15:14 | PDOC.HHF2F_ITS ---
Home Health Certification Home Health Certification: 1. Encounter Date and Reason I certify that Dave Alston Sr was seen by Nii Fuller MD on 04/21/22 and that I had a [id number] encounter with this patient that meets the physician face to face encounter requirements. 2. Clinical Findings Supporting Skilled Need and Homebound Status I certify that home health services are medically necessary, include either intermittent fci and/or physical/speech therapy, and that this pat ient is homebound in that absences from the home require considerable and taxing effort and are infrequent or of short duration, or are attributable to the need to receive medical care. [X] (a) Attached documentation from encounter provides clinical findings supporting skilled need and homebound status (including what assistance patient requires to leave the home). The encounter with the patient was in whole, or in part, for the following medical condition, which is the primary reason for home health care: copd exacerbation, community acquired pneumonia Penitentiary:Monitor patient's medical condition, instruct on medication regimen and signs and symptoms to report. At risk of decompensation and/or adverse events due to recent hsopitalization. Physical Therapy: Speech Therapy: Homebound: Unable to leave home unassisted and experiences shortness of breath and fatigue severely limiting ambulation distance. 3. Certification and Authentication I certify that I composed the above information based on my clinical judgement relating to this patient's medical condition and, if applicable, clinical findings communicated to me by the NPP or inpatient physician who performed the Home Health Referral. All further orders will be obtained through Bradley De La Cruz (Community Based Physician - PCP)
[2022-04-22 16:08] LABS: Mycoplasma Pneumoniae PCR Negative; Specimen source sputum
== END 2022-04-21 11:45 | disposition home health service (06) | DRG 190 ==
LOC: ER 04:50 → MS 04:52
PROVIDERS: Internal Medicine; Admitting Provider Family Medicine; Emergency Provider Student in an Organized Health Care Education/Training Program; PCP Family Medicine; Visit Provider Family Medicine
DX: J44.1 Chronic obstructive pulmonary disease with (acute) exacerbation (principal); J18.9 Pneumonia, unspecified organism; I47.1 Supraventricular tachycardia; J96.11 Chronic respiratory failure with hypoxia; J44.0 Chronic obstructive pulmonary disease with (acute) lower respiratory infection; Z99.81 Dependence on supplemental oxygen; I48.0 Paroxysmal atrial fibrillation; E66.9 Obesity, unspecified; Z68.30 Body mass index [BMI] 30.0-30.9, adult; R91.1 Solitary pulmonary nodule; I27.20 Pulmonary hypertension, unspecified; R26.2 Difficulty in walking, not elsewhere classified; Z87.820 Personal history of traumatic brain injury; F22 Delusional disorders; E78.5 Hyperlipidemia, unspecified; F41.9 Anxiety disorder, unspecified; K21.9 Gastro-esophageal reflux disease without esophagitis; I25.2 Old myocardial infarction; I69.311 Memory deficit following cerebral infarction; R47.89 Other speech disturbances; Z87.891 Personal history of nicotine dependence; K64.8 Other hemorrhoids
CPT/HCPCS: 36415; 80048; 80053; 82805; 84145; 87040; 87081; 87449; 87637; 93005; 94640; 96365; 96367; 99285; J1650; 71045; 80162; 81003; 81015; 83735; 83880; 84439; 84443; 84484; 85025; 85610; 85730; 87070; 87205; 87581; 87899; 92523; 93010; 94668; 99223; 99232; 99239; J0696; J2930; J7512; J7614; J7644

== ENCOUNTER → 2022-05-08 12:28 | Outpatient (CLI) | payer MEDICARE, MEDICAID, SELFPAY ==
--- NOTE | 2022-05-08 12:32 | DI.RAD_ITS ---
Exam(s) XR CHEST 2V PA LATERAL EXAM: XR CHEST 2V PA LATERAL CLINICAL HISTORY: PHAN, SOB, yellow [id number] COPD J96.11 RESPIRATORY FAILURE J18.9 PNEUMONI TECHNIQUE: 2D digital imaging was performed. COMPARISON: CT CT CHEST LUNG CANCER SCREEN from 02/21/2022 CR,XR XR PORTABLE CHEST AP from 04/18/2022 FINDINGS: HEART: Normal size. Aorta: PULMONARY VASCULATURE: Normal. LUNGS: Emphysematous and fibrotic changes. No infiltrate. PLEURAL SPACE: No pleural effusion or pneumothorax. BONE:Unremarkable for age. IMPRESSION: No acute abnormality. DATA REPOSITORY: RADIATION DOSE DELIVERED:
== END ==
PROVIDERS: PCP Family Medicine; Visit Provider Nurse Practitioner
DX: J18.9 Pneumonia, unspecified organism (principal); J44.1 Chronic obstructive pulmonary disease with (acute) exacerbation; J96.11 Chronic respiratory failure with hypoxia
CPT/HCPCS: 71046

== ENCOUNTER 2022-08-31 15:50 | Outpatient (REF) | payer MEDICARE, MEDICAID, SELFPAY | END 2022-08-31 15:51 | disposition home or self-care (01) | LOC: NCHCN 15:50 | PROVIDERS: PCP Family Medicine; Visit Provider Family Medicine | DX: N39.0 Urinary tract infection, site not specified (principal) | CPT/HCPCS: 87077; 87086; 87186 ==

== ENCOUNTER 2022-09-18 12:09 | Inpatient (IN) | payer MEDICARE, MEDICAID, SELFPAY ==
[2022-09-18] VITALS (29 sets, daily range): BP systolic 43–166; BP diastolic 32–84; PULSE 88–115; RESP 2–29; TEMP 36–37.2; O2SAT 85–99
--- NOTE | 2022-09-18 12:00 | RT.EKG_ITS ---
APPROVED REPORT Exam: Resting ECG Reason for Exam: Shortness of breath Patient Location: E HR:101 bpm ECG Measurements Heart Rate 101 AXIS WI 133 P 70 QRSd 83 QRS 72 QT 320 T -77 QTc 413 Conclusion Sinus tachycardia...rate> 99 Atrial premature complex...SV complex w/ short R-R interval Nonspecific repol abnormality, diffuse leads...ST dep, T flat/neg, ant/lat/inf
--- NOTE | 2022-09-18 12:00 | DI.RAD_ITS ---
Exam(s) XR PORTABLE CHEST AP EXAM: XR PORTABLE CHEST AP CLINICAL HISTORY: Shortness of breath TECHNIQUE: 2D digital imaging was performed of the chest. One image was obtained. An AP view was ob tained. COMPARISON: CR,XR XR PORTABLE CHEST AP from 04/18/2022 FINDINGS: MEDIASTINUM: Normal. HEART: Normal. PULMONARY VASCULATURE: Normal. LUNGS: There is a new linear opacity seen at the lateral aspect of the left mid lung. There is scarr ing which is stable in the right lung base. 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 PLEURAL SPACE: No pleural effusion or pneumothorax. BONE:Within normal limits for the patient's age. OTHER FINDINGS:Normal. IMPRESSION: New opacity in the peripheral mid left lung. Atelectasis, scarring or infiltrate. Please correlate clinically. DATA REPOSITORY: RADIATION DOSE DELIVERED:
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
[2022-09-18] MEDS: methylPREDNISolone SUCC 125 MG VIAL IVP (13:14)
--- NOTE | 2022-09-18 13:15 | DI.RAD_ITS ---
Exam(s) XR CHEST 2V PA LATERAL EXAM: XR CHEST 2V PA LATERAL CLINICAL HISTORY: Shortness of breath TECHNIQUE: 2D digital imaging was performed of the chest. Two images were obtained. PA and lateral views were obtained. COMPARISON: CR XR PORTABLE CHEST AP from 06/02/2019 CR,XR XR PORTABLE CHEST AP from 04/18/2022 CR XR CHEST 2V PA LATERAL from 05/08/2022 CR XR PORTABLE CHEST AP from 09/18/2022 FINDINGS: MEDIASTINUM: Normal. HEART: Normal. PULMONARY VASCULATURE: Normal. LUNGS: There is a persistent linear opacity in the left mid lung. This was new compared to the [facility] [place] from 05/08/2022. There are persistent ill-defined areas in the right lung which are likely chr onic. There is underlying COPD. PLEURAL SPACE: No pleural effusion or pneumothorax. BONE:Within normal limits for the patient's age. OTHER FINDINGS:Normal. IMPRESSION: Persistent opacity in the left mid lung. This may represent atelectasis, scarring or infiltrate. DATA REPOSITORY: RADIATION DOSE DELIVERED:
[2022-09-18] MEDS: Albuterol/Ipratropium 3 ML UPD VIAL 6 ML UPD (13:21)
[2022-09-18 13:23] LABS: Abs Immature Grans 0.15 10^3/uL (0.0-0.06); Absolute Basophil Count 0.09 10^3/uL (0.0-0.2); Absolute Lymphocyte Count 1.76 10^3/uL (1.2-3.4); Basophils % 0.5; Eosinophils % 0.6; HCT 43.4 % (40.0-50.0); HGB 12.7 g/dL (13.5-17.5); Immature Grans % 0.9; Lymphocytes % 10.3; MCH 24.1 pg (27.0-33.0); MCHC 29.3 % (32.0-36.0); MCV 82 fL (80-95); MPV 8.8 fL (8.0-11.0); Monocytes % 10.7; Platelet Count 392 10^3/uL (130-400); RBC 5.27 10^6/uL (4.36-5.78); RDW 15.6 % (11.8-14.1); WBC 17.04 10^3/uL (4.4-10.8)
[2022-09-18 13:24] LABS: COVID-19 PCR Negative (Negative); Influenza A PCR Negative (Negative); Influenza B PCR Negative (Negative); RSV PCR Negative (Negative)
[2022-09-18 13:25] LABS: Absolute Monocyte Count 1.82 10^3/uL (0.1-0.8); Absolute Neutrophil Count 13.12 10^3/uL (1.2-6.7)
[2022-09-18 13:29] LABS: Source Nasopharynx
[2022-09-18 13:38] LABS: PTT Activated 28.8 sec (21.5-31.9); Prothrombin Time 10.2 sec (9.3-11.0)
[2022-09-18 13:58] LABS: ALT 19 U/L (16-63); AST 7 U/L (15-37); Albumin 3.3 g/dL (3.4-5.0); Alkaline Phosphatase 128 U/L (46-116); Anion Gap 6.6 mmol/L (3-11); BUN 21 mg/dL (7-18); Bilirubin, Total 0.3 mg/dL (0.2-1.0); CO2 34.4 mmol/L (21.0-32.0); CREATININE 0.8 mg/dL (0.70-1.30); Calcium 9.3 mg/dL (8.5-10.1); Chloride 97 mmol/L (98-107); Diff Comment Agrees w/ Instrument; Estimated GFR 97.61 (mL/min/1.73m2); Glucose 92 mg/dL (74-106); NT-proBNP 52 pg/mL (<300); Potassium 3.7 mmol/L (3.5-5.1); RBC Morphology Normal; Sodium 138 mmol/L (136-145); Total Protein 8.3 g/dL (6.4-8.2); Troponin I < 50 ng/L (<or=60)
[2022-09-18 14:06] LABS: Digoxin 0.51 ng/mL (0.90-2.00)
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
[2022-09-18] MEDS: PIPERACILLIN/TAZO 3.375 GM in Normal Saline 50 ML IVPB ×2 (16:34→22:35)
[2022-09-18 16:54] LABS: Troponin I < 50 ng/L (<or=60)
[2022-09-18 16:58] LABS: Procalcitonin < 0.1 ng/mL
[2022-09-18] MEDS: guaiFENesin 600 MG TABCR PO (20:02)
[2022-09-18] MEDS: Ipratropium 0.5 MG/2.5 ML UPD VIAL IH (20:03)
[2022-09-18] MEDS: Levalbuterol 1.25 MG/3 ML UPD VIAL UPD (20:03)
[2022-09-18] MEDS: dilTIAZem CD 120 MG CAPCR 240 MG PO (20:17)
[2022-09-18] MEDS: Nystatin POWDER 15 GM JAR TP (20:18)
[2022-09-18] MEDS: Normal Saline Flush 10 ML SYR IVP (22:35)
[2022-09-19] VITALS (24 sets, daily range): BP systolic 138–165; BP diastolic 70–93; PULSE 88–105; RESP 2–28; TEMP 36–36.4; O2SAT 90–96
--- NOTE | 2022-09-19 | DI.CT_ITS ---
Exam(s) CT ABDOMEN PELVIS W EXAM: CT ABDOMEN PELVIS W CLINICAL HISTORY: abdominal pain TECHNIQUE: Imaging Protocol: Axial computed tomography images with coronal and sagittal reformatted images were created and reviewed CONTRAST MATERIAL: Intravenous: Omnipaque 350 Contrast volume:100 mL Oral: Yes COMPARISON: CT CT ABDOMEN PELVIS W from 05/06/2020 FINDINGS: The examination is limited due to patient motion artifact. ABDOMEN: Lung Bases: Bilateral lower lobe interstitial prominence with atelectasis and emphysema noted. Liver: Normal density. No measurable mass. Portal, Superior Mesenteric, and Splenic Veins: Unremarkable. Gallbladder and Biliary Tract: Cholelithiasis. No biliary ductal dilatation. Pancreas: Normal density, no abnormal calcifications or inflammatory process. Spleen: There has been interval increase in size and number of the peripherally enhancing splenic mas ses. The largest are in the 2.7 cm range. Adrenals: No masses seen. Kidneys: Normal size, contour and axis. No radiodense stones or obstructive uropathy. No masses seen. Abdominal Aorta: Abdominal portion non-dilated. Atherosclerosis. Bowel: There is diverticulosis of the colon, but no evidence of acute diverticulitis. There is no ev idence of bowel obstruction or bowel wall thickening. No evidence of appendicitis. Peritoneal Cavity: No ascites, collection or mesenteric inflammatory response. No free air. Lymph Nodes: Within normal limits. Bones: Within normal limits for the patient's age. There is now sclerotic lesion in the right sacral ala. There is now a lytic lesion involving the right aspect of the T11 vertebral body extending int o the right pedicle and posterior elements. Soft Tissues: Bilateral fat containing umbilical hernia are present. PELVIS: Bladder: Symmetric distention, no gross wall thickening. Reproductive Organs: There is enlarged prostate gland. Lymph Nodes: Within normal limits. Bones: Within normal limits for the patient's age. IMPRESSION: 1. Interval increase in size and number of the splenic lesions since 2019. While these may represent benign lesion such as hemangioma splenic metastases should be considered. CT scan or MRI of the spl een with a hemangioma protocol may be considered. 2. New bony lesions involving the right sacrum and the T11 vertebral body. Metastatic disease should be considered. MRI of the spine and pelvis may be considered for further evaluation. Bone scan may also be considered. 3. Cholelithiasis. No biliary ductal dilatation. Unexpected findings RADIATION DOSE DELIVERED: 1,141.06mGy.cm Total DLP DATA REPOSITORY: All CT scans at this facility are submitted to the National Radiology Data Registry (NRDR) Dose Index Registry (DIR) with the [employer] (ACR). RADIATION OPTIMIZATION: All CT scans at this facility use at least one of these dose optimization te chniques: automated exposure control; mA and/or kV adjustment per patient size (includes targeted exa ms where dose is matched to clinical indication); or iterative reconstruction.
[2022-09-19] MEDS: PIPERACILLIN/TAZO 3.375 GM in Normal Saline 50 ML IVPB ×4 (03:29→21:46)
[2022-09-19] MEDS: Ipratropium 0.5 MG/2.5 ML UPD VIAL IH ×5 (03:29→19:57)
[2022-09-19] MEDS: Normal Saline Flush 10 ML SYR IVP ×2 (03:32→21:48)
[2022-09-19 06:20] LABS: Abs Immature Grans 0.11 10^3/uL (0.0-0.06); Absolute Lymphocyte Count 0.91 10^3/uL (1.2-3.4); Absolute Monocyte Count 0.52 10^3/uL (0.1-0.8); Absolute Neutrophil Count 11.65 10^3/uL (1.2-6.7); Basophils % 0.2; HCT 40.4 % (40.0-50.0); HGB 12.4 g/dL (13.5-17.5); Immature Grans % 0.8; Lymphocytes % 6.9; MCH 25.2 pg (27.0-33.0); MCHC 30.7 % (32.0-36.0); MCV 82 fL (80-95); MPV 9.2 fL (8.0-11.0); Monocytes % 3.9; Neutrophils % 88.2; Platelet Count 340 10^3/uL (130-400); RBC 4.93 10^6/uL (4.36-5.78); RDW 15.5 % (11.8-14.1); RDW-SD 45.8 fL; WBC 13.21 10^3/uL (4.4-10.8)
[2022-09-19 06:24] LABS: Absolute Basophil Count 0.03 10^3/uL (0.0-0.2)
[2022-09-19 06:38] LABS: Anion Gap 3.3 mmol/L (3-11); BUN 21 mg/dL (7-18); CO2 34.7 mmol/L (21.0-32.0); CREATININE 0.8 mg/dL (0.70-1.30); Calcium 9.2 mg/dL (8.5-10.1); Chloride 99 mmol/L (98-107); Estimated GFR 97.61 (mL/min/1.73m2); Glucose 239 mg/dL (74-106); Potassium 3.9 mmol/L (3.5-5.1); Sodium 137 mmol/L (136-145)
[2022-09-19] MEDS: Tiotropium Bromide-Respimat 10 PUFF INH 2 PUFF IH (08:09)
[2022-09-19] MEDS: Budesonide/Formoterol 160/4.5 6 GM 60 PUFF INH IH ×2 (08:09→20:28)
[2022-09-19] MEDS: Aspirin 325 MG TAB PO (08:23)
[2022-09-19] MEDS: Roflumilast 500 MCG TAB PO (08:24)
[2022-09-19] MEDS: Digoxin 0.125 MG TAB PO (08:24)
[2022-09-19] MEDS: Potassium Chloride 20 MEQ TABCR PO (08:24)
[2022-09-19] MEDS: predniSONE 20 MG TAB 40 MG PO (08:24)
[2022-09-19] MEDS: Furosemide 20 MG TAB PO (08:24)
[2022-09-19] MEDS: dilTIAZem CD 120 MG CAPCR 240 MG PO ×2 (08:25→19:55)
[2022-09-19] MEDS: Insulin Aspart 300 UNITS/3 ML PEN SC ×4 (08:25→21:47)
[2022-09-19] MEDS: guaiFENesin 600 MG TABCR PO ×2 (08:25→19:55)
[2022-09-19] MEDS: Omeprazole 20 MG CAPCR PO (08:25)
[2022-09-19] MEDS: Enoxaparin 40 MG/0.4 ML SYR SC (08:27)
[2022-09-19] MEDS: Levalbuterol 1.25 MG/3 ML UPD VIAL UPD ×4 (08:56→19:57)
[2022-09-19] MEDS: Ascorbic Acid 500 MG TAB PO (10:04)
--- NOTE | 2022-09-19 11:44 | NUR.NOTE ---
Nursing Note: @1140 notified by charge nurse to decrease pt supplemental o2 via nc from 3l to 2l. order placed states to maintain oxygen sat 92% or above. this rn decreased oxygen to 2l via nc
--- NOTE | 2022-09-19 11:54 | W.DIABETESNO ---
Date of service: 09/19/22 Time of Service: 11:55 Diabetes Note Reason for Visit: dm NOTE: Received Dm inpatient consult. Dave does not have dx of DM, elevated blood sugars secondary to steroid use. Receiving insulin temporarily while on steroids. Admitted with end stage COPD. Current meeting nutrient and fluid needs by mouth. No education needed at this time. Time Spent in Nutritional Counseling and Treatment: 0
[2022-09-19] MEDS: Nystatin POWDER 15 GM JAR TP ×2 (12:00→20:28)
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
--- NOTE | 2022-09-19 14:47 | CHAPLAIN ---
Dave was sitting up in bed with a CPAP or BiPAP machine on. He took it off while we were talking and put on a nasal canular. I wasn't able to understand all that Dave was saying, but he explained about when he uses each type of oxygen machine. I will continue to visit.
--- NOTE | 2022-09-19 16:35 | NUR.NOTE ---
Nursing Note:@1960 this rn notified charge nurse of black stool of patient's.
--- NOTE | 2022-09-19 16:40 | NUR.NOTE ---
Nursing Note: @[id number] dr boss was at bedside and notified of dark black stools with orders pending for abd scan
[2022-09-19] MEDS: Omnipaque 350 MG/ML 50 ML BTL PO (17:29)
[2022-09-19] MEDS: Breeza Beverage 473 ML BTL PO (17:30)
--- NOTE | 2022-09-19 17:33 | NUR.NOTE ---
Nursing Note: pt iv in right ac infiltrated. new iv initiated in left wrist. pt was also updated on poc and new order for oral contrast for ct scan. denies any additional questions at this time.
[2022-09-19] MEDS: Pantoprazole 40 MG VIAL IVP (17:44)
--- NOTE | 2022-09-19 17:46 | NUR.NOTE ---
Nursing Note: oral contrast started
--- NOTE | 2022-09-19 17:53 | PGE_ITS ---
Date of Service Date of service: 09/19/22 Time of Service: 15:00 Assessment and Plan Assessment and plan (1) COPD exacerbation: Status: Acute Assessment and plan: Continue scheduled + prn nebs, steroids, mucinex, symbicort. Continue zosyn for now as the patient does describe his sputum was yellow/green (now clearing up). Expect there is a bronchitis component. Continue Trilogy at night/supplemental O2 by AK during the day. (2) Paroxysmal atrial fibrillation: Status: Chronic Assessment and plan: Appears to be in NSR. Continue digoxin, diltiazem. Not on anticoagulation. (3) Abdominal pain: Status: Acute Assessment and plan: Check CT abdomen/pelvis. Hold aspirin, chemical DVT ppx. Increase/scheduled PPI to 40 mg of protonix IV BID. H/H stable, but will continue to monitor. Check hematest. Clear liquid diet. (4) Steroid-induced hyperglycemia: Status: Acute Assessment and plan: Start SSI. (5) DVT prophylaxis: Status: Acute Assessment and plan: SC enoxaparin on hold while awaiting results of hematest as black stools are reported. TEDs. (6) Discharge planning issues: Status: Acute Assessment and plan: Full code Palliative care consulted. Continues to require hospitalization. Speech therapy recommendations from prior admission: When possible ask Yes/No questions Ask patient to speak slowly If needed, patient prefers to write when others are unable to understand him rather than use a picture board. Subjective Subjective Interval history since last seen: Dave does not feel better. He is still short of breath. He is coughing up white sputum. Denies dizziness, chest pain. Endorses nausea and L-sided abdominal pain. Nursing reports that his stools today have been black. Dave states that he had been taking pepto bismol at home, but that it does not usually turn his stools black. Exam Narrative Exam Narrative: General: Pleasant middle-aged male with a speech impediment, on 3L of O2 by AK, does not appear to be in respiratory distress while talking in lengthy sentences HEENT: EOMI, MMM Heart: RRR, no m/r/g Lungs: expiratory wheezing B Abdomen: soft, tender in LUQ/L midabdomen Extremities: no edema BLEs Objective Last Vital Signs Temp 36.4 C L 09/19/22 15:18 Pulse 89 09/19/22 17:09 Resp 24 09/19/22 17:09 BP 144/70 H 09/19/22 15:18 Pulse Ox 92 09/19/22 17:09 Laboratory Results - last 24 hr 09/19/22 09/19/22 05:58 05:58 WBC 13.21 H RBC 4.93 Hgb 12.4 L Hct 40.4 MCV 82 MCH 25.2 L MCHC 30.7 L RDW 15.5 H Plt Count 340 MPV 9.2 Immature Gran % 0.8 Neutrophils % 88.2 Lymphocytes % 6.9 Monocytes % 3.9 Eosinophils % 0.0 Basophils % 0.2 Nucleated RBC % 0.0 Absolute Neutrophils 11.65 H Absolute Lymphocytes 0.91 L Absolute Monocytes 0.52 Absolute Eosinophils 0.00 Absolute Basophils 0.03 Sodium 137 Potassium 3.9 Chloride 99 Carbon Dioxide 34.7 H Anion Gap 3.3 BUN 21 H Creatinine 0.8 Est GFR (CKD-EPI 2020) 97.61 Glucose 239 H Calcium 9.2 Objective Narrative Objective Narrative: CT abdomen/pelvis ordered, pending Time Spent with Patient Time Spent with Patient: 35-49 minutes Time was spent: preparing to see the patient(eg.review tests), obtaining and/or reviewing separately otained hiistory, ordering medications,tests, procedures, referring, communicating with other health care transition manager, indepentently interpreting results, counseling the patient and care coordination
--- NOTE | 2022-09-19 20:51 | DI.VRAD_ITS ---
PROCEDURE INFORMATION: Exam: CT Abdomen And Pelvis With Contrast Exam date and time: 09/19/2022 8:17 PM Age: 67 years old Clinical indication: Abdominal pain; Generalized TECHNIQUE: Imaging protocol: Computed tomography of the abdomen and pelvis with contrast. Contrast material: OMNIPAQUE 350; Contrast volume: 100 ml; Contrast route: INTRAVENOUS (IV); COMPARISON: CT ABDOMEN PELVIS W 05/06/2020 4:37 PM FINDINGS: Lungs: Mild bilateral lower lobe pulmonary interstitial prominence and atelectasis as well as partially visualized findings of emphysema noted in the lower lungs. Liver: Normal. No mass. Gallbladder and bile ducts: A few small calcified gallstones are noted in the gallbladder. Pancreas: Normal. No ductal dilation. Spleen: Multiple peripherally enhancing hypodense lesions noted in the spleen, the largest measuring 2.3 cm in the anterior portion of the spleen. At least some of these appear to have been present on the prior study from 2019 and exhibiting an appearance suggestive of multiple splenic hemangiomas. Adrenal glands: Normal. No mass. Kidneys and ureters: Normal. No hydronephrosis. Stomach and bowel: Unremarkable. No obstruction. No mucosal thickening. Appendix: No evidence of appendicitis. Intraperitoneal space: Unremarkable. No free air. No significant fluid collection. Vasculature: Unremarkable. No abdominal aortic aneurysm. Lymph nodes: Unremarkable. No enlarged lymph nodes. Urinary bladder: Unremarkable as visualized. Reproductive: The prostate gland is enlarged, measuring 5.7 cm in greatest diameter. Bones/joints: Unremarkable. No acute fracture. Soft tissues: Unremarkable. 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 These are more pronounced than on the prior study from 2019, likely due to slightly earlier phase of contrast on the current study. Correlation with hemangioma protocol CT abdomen recommended given apparent differences in appearance from previous. Other stable incidental findings as noted. No definite acute abnormality. Dictated and Authenticated by: Marcos Donald MD. Ordering:PILI Grant MD
[2022-09-19] MEDS: Sucralfate 1 GM TAB PO (21:47)
[2022-09-20] VITALS (22 sets, daily range): BP systolic 151–165; BP diastolic 77–87; PULSE 72–89; RESP 4–24; TEMP 36.1–36.8; O2SAT 90–94
[2022-09-20] MEDS: Levalbuterol 1.25 MG/3 ML UPD VIAL UPD ×5 (03:12→19:54)
[2022-09-20] MEDS: PIPERACILLIN/TAZO 3.375 GM in Normal Saline 50 ML IVPB ×4 (03:12→21:23)
[2022-09-20] MEDS: Ipratropium 0.5 MG/2.5 ML UPD VIAL IH ×5 (03:13→19:51)
[2022-09-20] MEDS: Normal Saline Flush 10 ML SYR IVP ×4 (03:26→18:00)
[2022-09-20] MEDS: Pantoprazole 40 MG VIAL IVP ×2 (05:15→18:00)
[2022-09-20 07:20] LABS: Abs Immature Grans 0.19 10^3/uL (0.0-0.06); Absolute Lymphocyte Count 1.95 10^3/uL (1.2-3.4); Absolute Monocyte Count 1.58 10^3/uL (0.1-0.8); Basophils % 0.2; Eosinophils % 0.1; HCT 38.2 % (40.0-50.0); HGB 11.6 g/dL (13.5-17.5); Immature Grans % 1.1; Lymphocytes % 11.1; MCH 24.3 pg (27.0-33.0); MCHC 30.4 % (32.0-36.0); MCV 80 fL (80-95); MPV 9.3 fL (8.0-11.0); Neutrophils % 78.5; Nucleated RBC 0.1 % (0.0-0.3); Platelet Count 409 10^3/uL (130-400); RBC 4.78 10^6/uL (4.36-5.78); RDW 15.6 % (11.8-14.1); RDW-SD 45.1 fL; WBC 17.54 10^3/uL (4.4-10.8)
[2022-09-20 07:34] LABS: Absolute Basophil Count 0.04 10^3/uL (0.0-0.2); Absolute Eosinophil Count 0.02 10^3/uL (0.0-0.7); Absolute Neutrophil Count 13.77 10^3/uL (1.2-6.7)
[2022-09-20 07:35] LABS: Anion Gap 2.6 mmol/L (3-11); BUN 22 mg/dL (7-18); CO2 36.4 mmol/L (21.0-32.0); CREATININE 0.8 mg/dL (0.70-1.30); Calcium 9.1 mg/dL (8.5-10.1); Chloride 101 mmol/L (98-107); Estimated GFR 97.61 (mL/min/1.73m2); Glucose 119 mg/dL (74-106); Magnesium 2.3 mg/dL (1.8-2.4); Potassium 3.4 mmol/L (3.5-5.1); Sodium 140 mmol/L (136-145)
[2022-09-20 08:04] LABS: Diff Comment Diff Reviewed
[2022-09-20 08:05] LABS: Hypochromasia 1+
[2022-09-20] MEDS: Tiotropium Bromide-Respimat 10 PUFF INH 2 PUFF IH (08:17)
[2022-09-20] MEDS: Budesonide/Formoterol 160/4.5 6 GM 60 PUFF INH IH ×2 (08:18→20:29)
[2022-09-20] MEDS: Potassium Chloride 20 MEQ TABCR 40 MEQ PO (09:10)
[2022-09-20] MEDS: Sucralfate 1 GM TAB PO ×4 (09:10→21:21)
[2022-09-20] MEDS: guaiFENesin 600 MG TABCR PO ×2 (09:10→21:22)
[2022-09-20] MEDS: predniSONE 20 MG TAB 40 MG PO (09:10)
[2022-09-20] MEDS: dilTIAZem CD 120 MG CAPCR 240 MG PO ×2 (09:11→21:22)
[2022-09-20] MEDS: Roflumilast 500 MCG TAB PO (09:12)
[2022-09-20] MEDS: Digoxin 0.125 MG TAB PO (09:12)
[2022-09-20] MEDS: Nystatin POWDER 15 GM JAR TP ×2 (09:12→22:20)
[2022-09-20] MEDS: Ascorbic Acid 500 MG TAB PO (09:12)
[2022-09-20] MEDS: Furosemide 20 MG TAB PO (09:12)
--- NOTE | 2022-09-20 09:42 | CMPROGNOTE_ITS ---
- If Service Date Differs Date of service: 09/20/22 Time of Service: 09:42 Care Management Progress Note S/O: Dave was lying in bed when CM met with him. He is awake and engages in conversation. He is quite vocal and speaks loudly at times, but remains appropriate. Dave continues to requires acute hospitalization, Surgical is consulted. Palliative care met with patient today, no changes are made. CM will follow. A: 67 year old male admitted to [facility] on 09/18/22 for COPD exacerbation, Paroxys mal atrial fibrillation P: Anticipate, Dave will be discharged home when medically cleared by provider with a resumption of [facility] RN, home oxygen (Scotty), MOW, and CFC - Highest needs. He will follow up with his PCP and discharge plan of care as directed. Transport home will either be via private vehicle with his son or RCT arranged by CM. CM will continue to support patient and discharge planning needs.
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
--- NOTE | 2022-09-20 15:19 | W.PM.PROGNOT ---
Date of Service Date of service: 09/20/22 Time of Service: 15:19 Assessment and Plan Assessment and plan (1) COPD exacerbation: Status: Acute Assessment and plan: Continue scheduled + prn nebs, steroids, mucinex, symbicort. Continue zosyn for now as the patient does describe his sputum was yellow/green (now clearing up). Expect there is a bronchitis component. Continue Trilogy at night/supplemental O2 by NC during the day. (2) Paroxysmal atrial fibrillation: Status: Chronic Assessment and plan: Appears to be in NSR. Continue digoxin, diltiazem. Not on anticoagulation. (3) Abdominal pain: Status: Acute Assessment and plan: waiting MRI lumbar spine and pelvis to investigate findings on CT abdomen/pelvis. Hold aspirin, chemical DVT ppx. Increase/scheduled PPI to 40 mg of protonix IV BID add carafate. H/H stable, but will continue to monitor. hematest stool was positive, surgical consultation, patient with hemorrhoids, had previous colonoscopy with polyps, awaiting MRI results. Clear liquid diet. (4) Steroid-induced hyperglycemia: Status: Acute Assessment and plan: Start SSI. (5) DVT prophylaxis: Status: Acute Assessment and plan: SC enoxaparin on hold while awaiting results of hematest as black stools are reported. TEDs. (6) Discharge planning issues: Status: Acute Assessment and plan: Full code Palliative care consulted. Continues to require hospitalization. Speech therapy recommendations from prior admission: When possible ask Yes/No questions Ask patient to speak slowly If needed, patient prefers to write when others are unable to understand him rather than use a picture board. Discussed with Dr Sullivan Subjective Subjective Patient reports: no new complaints, pain is less, tolerating liquids well, shortness of breath (improving) and afebrile Exam Const General: cooperative, no acute distress and not diaphoretic Orientation: alert, awake and oriented x3 Limitations: mental status not altered Neck Neck: normal visual inspection, full ROM, trachea midline and supple Chest Chest: normal inspection of the chest Resp Effort & Inspection: normal respiratory effort Auscultation: wheezes expiratory wheezes and scattered wheezes Cardio Jugular venous pressure: no JVD Rate: regular rate Rhythm: regular rhythm Heart Sounds: no murmurs Skin General skin exam: no rashes or lesions noted Neuro General: patient alert, patient awake, patient oriented x3, tone normal and moves all extremities Objective Last Vital Signs Temp 36.1 C L 09/20/22 08:12 Pulse 89 09/20/22 12:59 Resp 16 09/20/22 12:59 BP 155/77 H 09/20/22 08:12 Pulse Ox 92 09/20/22 12:59 Laboratory Results - last 24 hr 09/20/22 09/20/22 06:44 06:44 WBC 17.54 H RBC 4.78 Hgb 11.6 L Hct 38.2 L MCV 80 MCH 24.3 L MCHC 30.4 L RDW 15.6 H Plt Count 409 H MPV 9.3 Immature Gran % 1.1 Neutrophils % 78.5 Lymphocytes % 11.1 Monocytes % 9.0 Eosinophils % 0.1 Basophils % 0.2 Nucleated RBC % 0.1 Absolute Neutrophils 13.77 H Absolute Lymphocytes 1.95 Absolute Monocytes 1.58 H Absolute Eosinophils 0.02 Absolute Basophils 0.04 RBC Morphology See Below Hypochromasia 1+ Sodium 140 Potassium 3.4 L Chloride 101 Carbon Dioxide 36.4 H Anion Gap 2.6 L BUN 22 H Creatinine 0.8 Est GFR (CKD-EPI 2020) 97.61 Glucose 119 H Calcium 9.1 Magnesium 2.3 Time Spent with Patient Time Spent with Patient: 35-49 minutes Time was spent: preparing to see the patient(eg.review tests), obtaining and/or reviewing separately otained hiistory, ordering medications,tests, procedures, referring, communicating with other health care information associate (surgeon) and indepentently interpreting results
[2022-09-21] VITALS (13 sets, daily range): BP systolic 143–153; BP diastolic 73–81; PULSE 73–96; RESP 2–20; TEMP 35.9–36.6; O2SAT 89–94
--- NOTE | 2022-09-21 03:32 | NUR.NOTE ---
Pt had BM. No melena/ blood present in stool. Fecal occult x2 taken resulted as positive. VS stable (see flowsheet). Pt asymptomatic. software support representative made aware. Will cont to trend H&H.
[2022-09-21] MEDS: PIPERACILLIN/TAZO 3.375 GM in Normal Saline 50 ML IVPB ×4 (05:10→23:34)
[2022-09-21] MEDS: Pantoprazole 40 MG VIAL IVP ×2 (05:11→17:29)
[2022-09-21 06:46] LABS: Abs Immature Grans 0.13 10^3/uL (0.0-0.06); Basophils % 0.2; Eosinophils % 0.2; HCT 39.5 % (40.0-50.0); HGB 11.9 g/dL (13.5-17.5); Lymphocytes % 17.7; MCH 24.1 pg (27.0-33.0); MCHC 30.1 % (32.0-36.0); MCV 80 fL (80-95); MPV 9.3 fL (8.0-11.0); Monocytes % 9.1; Neutrophils % 71.8; Platelet Count 393 10^3/uL (130-400); RBC 4.93 10^6/uL (4.36-5.78); RDW 15.7 % (11.8-14.1); RDW-SD 45.3 fL; WBC 13.19 10^3/uL (4.4-10.8)
[2022-09-21 06:51] LABS: Absolute Basophil Count 0.03 10^3/uL (0.0-0.2); Absolute Eosinophil Count 0.03 10^3/uL (0.0-0.7); Absolute Lymphocyte Count 2.33 10^3/uL (1.2-3.4); Absolute Neutrophil Count 9.47 10^3/uL (1.2-6.7)
[2022-09-21 07:00] LABS: Anion Gap 3.9 mmol/L (3-11); BUN 18 mg/dL (7-18); CO2 34.1 mmol/L (21.0-32.0); CREATININE 0.8 mg/dL (0.70-1.30); Calcium 9.1 mg/dL (8.5-10.1); Chloride 102 mmol/L (98-107); Estimated GFR 97.61 (mL/min/1.73m2); Glucose 93 mg/dL (74-106); Magnesium 2.2 mg/dL (1.8-2.4); Potassium 3.9 mmol/L (3.5-5.1); Sodium 140 mmol/L (136-145)
[2022-09-21] MEDS: Budesonide/Formoterol 160/4.5 6 GM 60 PUFF INH IH ×2 (08:12→21:30)
[2022-09-21] MEDS: Tiotropium Bromide-Respimat 10 PUFF INH 2 PUFF IH (08:13)
[2022-09-21] MEDS: Levalbuterol 1.25 MG/3 ML UPD VIAL UPD ×4 (08:13→21:35)
[2022-09-21] MEDS: Ipratropium 0.5 MG/2.5 ML UPD VIAL IH ×4 (08:14→21:30)
[2022-09-21] MEDS: Potassium Chloride Liquid 20 MEQ PKT 40 MEQ PO (08:44)
[2022-09-21] MEDS: Sucralfate 1 GM TAB PO ×4 (08:45→21:25)
[2022-09-21] MEDS: Ascorbic Acid 500 MG TAB PO (08:45)
[2022-09-21] MEDS: dilTIAZem CD 120 MG CAPCR 240 MG PO ×2 (08:45→21:25)
[2022-09-21] MEDS: Roflumilast 500 MCG TAB PO (08:46)
[2022-09-21] MEDS: predniSONE 20 MG TAB 40 MG PO (08:46)
[2022-09-21] MEDS: Furosemide 20 MG TAB PO (08:46)
[2022-09-21] MEDS: Digoxin 0.125 MG TAB PO (08:46)
[2022-09-21] MEDS: guaiFENesin 600 MG TABCR PO ×2 (08:47→21:25)
[2022-09-21] MEDS: Nystatin POWDER 15 GM JAR TP ×2 (08:48→21:36)
[2022-09-21] MEDS: Normal Saline Flush 10 ML SYR IVP ×2 (10:55→23:34)
--- NOTE | 2022-09-21 13:11 | PGE_ITS ---
Date of Service Date of service: 09/21/22 Time of Service: 13:11 Assessment and Plan Assessment and plan (1) COPD exacerbation: Status: Acute Assessment and plan: Continue scheduled + prn nebs, steroids, mucinex, symbicort. Continue zosyn for now as the patient does describe his sputum was yellow/green (now clearing up). Expect there is a bronchitis component. Continue Trilogy at night/supplemental O2 by [place] during the day. (2) Paroxysmal atrial fibrillation: Status: Chronic Assessment and plan: NSR. Continue digoxin, diltiazem. Not on anticoagulation. (3) Abdominal pain: Status: Acute Assessment and plan: waiting MRI lumbar spine and pelvis to investigate findings on CT abdomen/pelvis. Hold aspirin, chemical DVT ppx. Increase/scheduled PPI to 40 mg of protonix IV BID add carafate. H/H stable, but will continue to monitor. hematest stool was positive, surgical consultation, patient with hemorrhoids, had previous colonoscopy with polyps, awaiting MRI results. Clear liquid diet. (4) Steroid-induced hyperglycemia: Status: Acute Assessment and plan: Start SSI. (5) DVT prophylaxis: Status: Acute Assessment and plan: hematest positive so no chemical TEDs. (6) Discharge planning issues: Status: Acute Assessment and plan: Full code Palliative care consulted. Continues to require hospitalization. Speech therapy recommendations from prior admission: When possible ask Yes/No questions Ask patient to speak slowly If needed, patient prefers to write when others are unable to understand him rather than use a picture board. Discussed with Dr Da Silva Subjective Subjective Patient reports: no new complaints Exam Const General: cooperative, no acute distress and not diaphoretic Orientation: alert, awake and oriented x3 Limitations: mental status not altered Neck Neck: normal visual inspection, full ROM, trachea midline and supple Chest Chest: normal inspection of the chest Resp Effort & Inspection: normal respiratory effort Auscultation: wheezes expiratory wheezes and scattered wheezes Cardio Jugular venous pressure: no JVD Rate: regular rate Rhythm: regular rhythm Heart Sounds: no murmurs Skin General skin exam: no rashes or lesions noted Neuro General: patient alert, patient awake, patient oriented x3, tone normal and moves all extremities Objective Last Vital Signs Temp 36.6 C 09/21/22 08:55 Pulse 73 09/21/22 08:55 Resp 20 09/21/22 08:55 BP 146/81 H 09/21/22 08:55 Pulse Ox 89 L 09/21/22 08:55 Laboratory Results - last 24 hr 09/21/22 09/21/22 06:16 06:16 WBC 13.19 H RBC 4.93 Hgb 11.9 L Hct 39.5 L MCV 80 MCH 24.1 L MCHC 30.1 L RDW 15.7 H Plt Count 393 MPV 9.3 Immature Gran % 1.0 Neutrophils % 71.8 Lymphocytes % 17.7 Monocytes % 9.1 Eosinophils % 0.2 Basophils % 0.2 Nucleated RBC % 0.0 Absolute Neutrophils 9.47 H Absolute Lymphocytes 2.33 Absolute Monocytes 1.20 H Absolute Eosinophils 0.03 Absolute Basophils 0.03 Sodium 140 Potassium 3.9 Chloride 102 Carbon Dioxide 34.1 H Anion Gap 3.9 BUN 18 Creatinine 0.8 Est GFR (CKD-EPI 2020) 97.61 Glucose 93 Calcium 9.1 Magnesium 2.2 Time Spent with Patient Time Spent with Patient: 25-34 minutes Time was spent: preparing to see the patient(eg.review tests), obtaining and/or reviewing separately otained hiistory, ordering medications,tests, procedures, referring, communicating with other health insurance healthcare consultant, indepentently interpreting results, counseling the patient and care coordination
--- NOTE | 2022-09-21 17:28 | NUR.NOTE ---
Nursing Note: this rn assisted pt with simple face mask for ambulation and tranfering to chair to maintain oxygen sat. pt tolerated simple face mask well. oxygen sat maintained at 91-93% on 3L during ambulation
[2022-09-22] VITALS (8 sets, daily range): BP systolic 144–168; BP diastolic 80–96; PULSE 68–90; RESP 5–21; TEMP 36.1–36.6; O2SAT 90–95
[2022-09-22] MEDS: PIPERACILLIN/TAZO 3.375 GM in Normal Saline 50 ML IVPB ×4 (04:21→22:28)
[2022-09-22] MEDS: Normal Saline Flush 10 ML SYR IVP ×3 (04:22→18:37)
[2022-09-22] MEDS: Pantoprazole 40 MG VIAL IVP ×2 (06:01→18:37)
[2022-09-22 06:43] LABS: Abs Immature Grans 0.22 10^3/uL (0.0-0.06); Absolute Basophil Count 0.03 10^3/uL (0.0-0.2); Absolute Eosinophil Count 0.05 10^3/uL (0.0-0.7); Absolute Neutrophil Count 8.49 10^3/uL (1.2-6.7); Basophils % 0.2; Eosinophils % 0.4; HGB 12.4 g/dL (13.5-17.5); Immature Grans % 1.7; Lymphocytes % 21.6; MCH 24.3 pg (27.0-33.0); MCHC 30.2 % (32.0-36.0); MCV 80 fL (80-95); Monocytes % 11.4; Neutrophils % 64.7; Platelet Count 400 10^3/uL (130-400); RBC 5.11 10^6/uL (4.36-5.78); RDW 15.8 % (11.8-14.1); WBC 13.12 10^3/uL (4.4-10.8)
[2022-09-22 06:47] LABS: Absolute Lymphocyte Count 2.83 10^3/uL (1.2-3.4)
[2022-09-22 07:03] LABS: Anion Gap 4.9 mmol/L (3-11); BUN 18 mg/dL (7-18); CO2 33.1 mmol/L (21.0-32.0); CREATININE 0.9 mg/dL (0.70-1.30); Chloride 101 mmol/L (98-107); Estimated GFR 94.19 (mL/min/1.73m2); Glucose 118 mg/dL (74-106); Magnesium 2.2 mg/dL (1.8-2.4); Potassium 3.9 mmol/L (3.5-5.1); Sodium 139 mmol/L (136-145)
[2022-09-22] MEDS: Ipratropium 0.5 MG/2.5 ML UPD VIAL IH ×3 (07:52→16:27)
[2022-09-22] MEDS: Levalbuterol 1.25 MG/3 ML UPD VIAL UPD ×3 (07:52→16:27)
[2022-09-22] MEDS: Tiotropium Bromide-Respimat 10 PUFF INH 2 PUFF IH (07:52)
[2022-09-22] MEDS: Budesonide/Formoterol 160/4.5 6 GM 60 PUFF INH IH ×2 (08:30→20:19)
[2022-09-22] MEDS: Nystatin POWDER 15 GM JAR TP (08:50)
[2022-09-22] MEDS: Ascorbic Acid 500 MG TAB PO (08:51)
[2022-09-22] MEDS: Potassium Chloride Liquid 20 MEQ PKT 40 MEQ PO (08:51)
[2022-09-22] MEDS: Sucralfate 1 GM TAB PO ×3 (08:51→16:45)
[2022-09-22] MEDS: predniSONE 20 MG TAB 40 MG PO (08:51)
[2022-09-22] MEDS: Digoxin 0.125 MG TAB PO (08:51)
[2022-09-22] MEDS: Roflumilast 500 MCG TAB PO (08:51)
[2022-09-22] MEDS: Furosemide 20 MG TAB PO (08:51)
[2022-09-22] MEDS: guaiFENesin 600 MG TABCR PO ×2 (08:51→20:20)
[2022-09-22] MEDS: dilTIAZem CD 120 MG CAPCR 240 MG PO ×2 (08:51→20:58)
--- NOTE | 2022-09-22 10:15 | W.PM.PROGNOT ---
Date of Service Date of service: 09/22/22 Time of Service: 10:16 Assessment and Plan Assessment and plan (1) COPD exacerbation: Status: Acute Assessment and plan: Continue scheduled + prn nebs, steroids, mucinex, symbicort. Continue zosyn for now as the patient does describe his sputum was yellow/green (now clearing up). Expect there is a bronchitis component. Continue Trilogy at night/supplemental O2 by [place] during the day. (2) Paroxysmal atrial fibrillation: Status: Chronic Assessment and plan: Appears to be in NSR. Continue digoxin, diltiazem. Not on anticoagulation. (3) Abdominal pain: Status: Acute Assessment and plan: waiting MRI lumbar spine and pelvis to investigate findings on CT abdomen/pelvis. Hold aspirin, chemical DVT ppx. Increase/scheduled PPI to 40 mg of protonix IV BID add carafate. H/H stable, but will continue to monitor. hematest stool was positive, surgical consultation, patient with hemorrhoids, had previous colonoscopy with polyps, awaiting MRI results. Clear liquid diet. (4) Steroid-induced hyperglycemia: Status: Acute Assessment and plan: Start SSI. (5) DVT prophylaxis: Status: Acute Assessment and plan: hematest positive so no chemical TEDs. (6) Discharge planning issues: Status: Acute Assessment and plan: Full code Palliative care consulted. Continues to require hospitalization. Speech therapy recommendations from prior admission: When possible ask Yes/No questions Ask patient to speak slowly If needed, patient prefers to write when others are unable to understand him rather than use a picture board. Discussed with Dr Da Silva Subjective Subjective Patient reports: no new complaints, tolerating liquids well, tolerating a regular diet, shortness of breath and afebrile Exam Const General: cooperative, no acute distress and not diaphoretic Orientation: alert, awake and oriented x3 Limitations: mental status not altered Neck Neck: normal visual inspection, full ROM, trachea midline and supple Chest Chest: normal inspection of the chest Resp Effort & Inspection: normal respiratory effort Auscultation: wheezes expiratory wheezes and scattered wheezes Cardio Jugular venous pressure: no JVD Rate: regular rate Rhythm: regular rhythm Heart Sounds: no murmurs Skin General skin exam: no rashes or lesions noted Neuro General: patient alert, patient awake, patient oriented x3, tone normal and moves all extremities Objective Last Vital Signs Temp 36.6 C 09/22/22 08:03 Pulse 83 09/22/22 08:51 Resp 18 09/22/22 08:03 BP 154/96 H 09/22/22 08:03 Pulse Ox 95 09/22/22 08:03 Laboratory Results - last 24 hr 09/22/22 09/22/22 06:17 06:17 WBC 13.12 H RBC 5.11 Hgb 12.4 L Hct 41.0 MCV 80 MCH 24.3 L MCHC 30.2 L RDW 15.8 H Plt Count 400 MPV 9.0 Immature Gran % 1.7 Neutrophils % 64.7 Lymphocytes % 21.6 Monocytes % 11.4 Eosinophils % 0.4 Basophils % 0.2 Nucleated RBC % 0.0 Absolute Neutrophils 8.49 H Absolute Lymphocytes 2.83 Absolute Monocytes 1.50 H Absolute Eosinophils 0.05 Absolute Basophils 0.03 Sodium 139 Potassium 3.9 Chloride 101 Carbon Dioxide 33.1 H Anion Gap 4.9 BUN 18 Creatinine 0.9 Est GFR (CKD-EPI 2020) 94.19 Glucose 118 H Calcium 9.0 Magnesium 2.2 Time Spent with Patient Time Spent with Patient: 25-34 minutes Time was spent: preparing to see the patient(eg.review tests), obtaining and/or reviewing separately otained hiistory, ordering medications,tests, procedures, indepentently interpreting results and care coordination
[2022-09-22] MEDS: Insulin Aspart 300 UNITS/3 ML PEN SC (16:46)
--- NOTE | 2022-09-22 20:08 | NUR.NOTE ---
Nursing Note: Roller Coaster Designer entered room to administer HS medication. Patient was sleeping. Roller Coaster Designer woke patient. Patient began to yell at director underwriter sales about not waking him up when he was sleeping. Roller Coaster Designer informed him that there were medications scheduled. Patient continued to yell and said If I am sleeping, leave me the fuck alone. There is a sign on the door that says that. Roller Coaster Designer asked if he wanted his medications and patient replied no, get the hell out of my room. Roller Coaster Designer exited room.
[2022-09-23] VITALS (9 sets, daily range): BP systolic 124–187; BP diastolic 71–78; PULSE 90–100; RESP 8–20; TEMP 35.8–36.7; O2SAT 93–95
[2022-09-23] MEDS: PIPERACILLIN/TAZO 3.375 GM in Normal Saline 50 ML IVPB ×4 (04:05→21:07)
[2022-09-23] MEDS: Pantoprazole 40 MG VIAL IVP ×2 (05:57→17:57)
[2022-09-23] MEDS: Normal Saline Flush 10 ML SYR IVP ×2 (08:57→17:34)
[2022-09-23] MEDS: Digoxin 0.125 MG TAB PO (08:57)
[2022-09-23] MEDS: Potassium Chloride Liquid 20 MEQ PKT 40 MEQ PO (08:57)
[2022-09-23] MEDS: Furosemide 20 MG TAB PO (08:58)
[2022-09-23] MEDS: dilTIAZem CD 120 MG CAPCR 240 MG PO ×2 (08:58→19:19)
[2022-09-23] MEDS: guaiFENesin 600 MG TABCR PO ×2 (08:58→19:18)
[2022-09-23] MEDS: Roflumilast 500 MCG TAB PO (08:59)
[2022-09-23] MEDS: Ascorbic Acid 500 MG TAB PO (08:59)
[2022-09-23] MEDS: predniSONE 20 MG TAB 40 MG PO (08:59)
[2022-09-23] MEDS: Sucralfate 1 GM TAB PO ×4 (08:59→21:07)
--- NOTE | 2022-09-23 09:22 | CMPROGNOTE_ITS ---
- If Service Date Differs Date of service: 09/23/22 Time of Service: 09:22 Care Management Progress Note S/O: Dave was sitting up in bed when CM met with him, he had just finished a neb treatment. His respiratory status is back to baseline per RT. Dave is planning to have an MRI today, then may discharge home with resumption of services if medically cleared. CM will follow. A: 67 year old male admitted to [facility] on 09/18/22 for COPD exacerbation, Paroxysmal atrial fibrillation P: Anticipate, Dave will be discharged home when medically cleared by provider with a resumption of [facility] RN, home oxygen ([place]), MOW, and CFC - Highest needs. He will follow up with his PCP and discharge plan of care as directed. Transport home will either be via private vehicle with his son or RCT arranged by CM. CM will continue to support patient and discharge planning needs.
[2022-09-23] MEDS: Budesonide/Formoterol 160/4.5 6 GM 60 PUFF INH IH ×2 (10:03→19:20)
[2022-09-23] MEDS: Levalbuterol 1.25 MG/3 ML UPD VIAL UPD ×3 (10:03→19:20)
[2022-09-23] MEDS: Tiotropium Bromide-Respimat 10 PUFF INH 2 PUFF IH (10:03)
[2022-09-23] MEDS: Ipratropium 0.5 MG/2.5 ML UPD VIAL IH ×3 (10:04→19:20)
[2022-09-23] MEDS: Nystatin POWDER 15 GM JAR TP ×2 (10:59→19:21)
[2022-09-23] MEDS: Insulin Aspart 300 UNITS/3 ML PEN SC ×2 (16:55→21:08)
--- NOTE | 2022-09-23 19:09 | W.PM.PROGNOT ---
Date of Service Date of service: 09/23/22 Time of Service: 10:00 Assessment and Plan Assessment and plan (1) COPD exacerbation: Status: Acute Assessment and plan: Continue scheduled + prn nebs, steroids, mucinex, symbicort. Continue zosyn for now as the patient does describe his sputum was yellow/green (now clearing up). Expect there is a bronchitis component. Continue Trilogy at night/supplemental O2 by [place] during the day. (2) Paroxysmal atrial fibrillation: Status: Chronic Assessment and plan: Appears to be in NSR. Continue digoxin, diltiazem. Not on anticoagulation. (3) Abdominal pain: Status: Acute Assessment and plan: waiting MRI lumbar spine and pelvis to investigate findings on CT abdomen/pelvis- on hold s/t clips from brain aneurysm - Rad working on checking compatibility with [facility] Hold aspirin, chemical DVT ppx. Continue scheduled PPI to 40 mg of protonix IV BID add carafate. H/H stable, but will continue to monitor. hematest stool was positive, surgical consultation, patient with hemorrhoids, had previous colonoscopy with polyps. Clear liquid diet. (4) Steroid-induced hyperglycemia: Status: Acute Assessment and plan: Start SSI. (5) DVT prophylaxis: Status: Acute Assessment and plan: hematest positive so no chemical TEDs. (6) Discharge planning issues: Status: Acute Assessment and plan: Full code Palliative care consulted. Continues to require hospitalization. Speech therapy recommendations from prior admission: When possible ask Yes/No questions Ask patient to speak slowly If needed, patient prefers to write when others are unable to understand him rather than use a picture board. Can be discharged to home with svc v no svc. Follow up out pt; MRI status pending Discussed with Dr Da Silva Subjective Subjective Patient reports: no new complaints, feels better, tolerating a regular diet, voiding w/o difficulty and afebrile; denies diarrhea or vomiting Interval history since last seen: Dave is awake and alert, using oxygen, feels that he is at his baseline. MRI is pending, he had an aneurysm in his brain and had some clips; rad is checking with [facility] regarding compatibility of clips w MRI - it is on hold until further notice. Explained to patient and he voices understanding; advised he might need to have MRI outpt or it might not be possible at all. Exam Const General: cooperative, no acute distress and not diaphoretic Orientation: alert, awake and oriented x3 Limitations: mental status not altered Neck Neck: normal visual inspection, full ROM, trachea midline and supple Chest Chest: normal inspection of the chest Resp Effort & Inspection: normal respiratory effort Auscultation: wheezes expiratory wheezes and scattered wheezes Cardio Jugular venous pressure: no JVD Rate: regular rate Rhythm: regular rhythm Heart Sounds: no murmurs Skin General skin exam: no rashes or lesions noted Neuro General: patient alert, patient awake, patient oriented x3, tone normal and moves all extremities Objective Last Vital Signs Temp 36.7 C 09/23/22 15:23 Pulse 100 H 09/23/22 15:23 Resp 20 09/23/22 15:23 BP 138/78 09/23/22 15:23 Pulse Ox 93 09/23/22 17:34 Time Spent with Patient Time Spent with Patient: 25-34 minutes Time was spent: preparing to see the patient(eg.review tests), ordering medications,tests, procedures, referring, communicating with other health clinical care coordinator, indepentently interpreting results, counseling the patient and care coordination
[2022-09-24] VITALS (8 sets, daily range): BP systolic 149–164; BP diastolic 85–91; PULSE 85–99; RESP 8–24; TEMP 36.4–36.7; O2SAT 92–96
[2022-09-24] MEDS: PIPERACILLIN/TAZO 3.375 GM in Normal Saline 50 ML IVPB ×2 (03:46→09:24)
[2022-09-24] MEDS: Pantoprazole 40 MG VIAL IVP ×2 (05:02→17:50)
[2022-09-24 07:28] LABS: Abs Immature Grans 0.76 10^3/uL (0.0-0.06); Basophils % 0.4; Eosinophils % 1.2; HCT 46.1 % (40.0-50.0); HGB 13.7 g/dL (13.5-17.5); Immature Grans % 3.6; Lymphocytes % 16.6; MCH 24.2 pg (27.0-33.0); MCHC 29.7 % (32.0-36.0); MCV 82 fL (80-95); MPV 9.3 fL (8.0-11.0); Monocytes % 9.2; Platelet Count 523 10^3/uL (130-400); RBC 5.65 10^6/uL (4.36-5.78); RDW-SD 47.2 fL; WBC 21.19 10^3/uL (4.4-10.8)
[2022-09-24 07:32] LABS: Absolute Basophil Count 0.08 10^3/uL (0.0-0.2); Absolute Eosinophil Count 0.25 10^3/uL (0.0-0.7); Absolute Lymphocyte Count 3.52 10^3/uL (1.2-3.4); Absolute Monocyte Count 1.95 10^3/uL (0.1-0.8); Absolute Neutrophil Count 14.62 10^3/uL (1.2-6.7)
[2022-09-24 07:42] LABS: Anion Gap 5.5 mmol/L (3-11); BUN 30 mg/dL (7-18); CO2 34.5 mmol/L (21.0-32.0); CREATININE 0.9 mg/dL (0.70-1.30); Calcium 9.2 mg/dL (8.5-10.1); Chloride 103 mmol/L (98-107); Estimated GFR 94.19 (mL/min/1.73m2); Glucose 97 mg/dL (74-106); Magnesium 2.3 mg/dL (1.8-2.4); Sodium 143 mmol/L (136-145)
[2022-09-24 07:53] LABS: Anisocytosis 1+; Diff Comment Agrees w/ Instrument
[2022-09-24 07:54] LABS: Hypochromasia 1+
[2022-09-24] MEDS: Tiotropium Bromide-Respimat 10 PUFF INH 2 PUFF IH (08:54)
[2022-09-24] MEDS: Budesonide/Formoterol 160/4.5 6 GM 60 PUFF INH IH ×2 (08:54→20:15)
[2022-09-24] MEDS: Levalbuterol 1.25 MG/3 ML UPD VIAL UPD ×4 (08:54→20:16)
[2022-09-24] MEDS: Ipratropium 0.5 MG/2.5 ML UPD VIAL IH ×4 (08:54→20:16)
--- NOTE | 2022-09-24 09:08 | CMPROGNOTE_ITS ---
- If Service Date Differs Date of service: 09/24/22 Time of Service: 09:08 Care Management Progress Note S/O: Dave is having a MRI of his Pelvis and Lumbar spine today. He may discharge home later today if medically ready per provider. A: 67 year old male admitted to [facility] on 09/18/22 for COPD exacerbation, Paroxysmal atrial fibrillation P: Anticipate, Dave will be discharged home when medically cleared by provider with a resumption of [facility] RN, home oxygen ([place]), MOW, and CFC - Highest needs. He will follow up with his PCP and discharge plan of care as directed. Transport home will either be via private vehicle with his son or RCT arranged by CM. CM will continue to support patient and discharge planning needs.
[2022-09-24] MEDS: Nystatin POWDER 15 GM JAR TP ×2 (09:17→20:26)
[2022-09-24] MEDS: Ascorbic Acid 500 MG TAB PO (09:17)
[2022-09-24] MEDS: Digoxin 0.125 MG TAB PO (09:18)
[2022-09-24] MEDS: Roflumilast 500 MCG TAB PO (09:19)
[2022-09-24] MEDS: guaiFENesin 600 MG TABCR PO ×2 (09:19→20:16)
[2022-09-24] MEDS: Furosemide 20 MG TAB PO (09:20)
[2022-09-24] MEDS: Sucralfate 1 GM TAB PO ×4 (09:20→20:26)
[2022-09-24] MEDS: predniSONE 20 MG TAB 40 MG PO (09:20)
[2022-09-24] MEDS: Potassium Chloride Liquid 20 MEQ PKT 40 MEQ PO (09:21)
[2022-09-24] MEDS: dilTIAZem CD 120 MG CAPCR 240 MG PO ×2 (09:21→20:16)
[2022-09-24] MEDS: Normal Saline Flush 10 ML SYR IVP ×2 (09:22→12:46)
--- NOTE | 2022-09-24 11:30 | DI.MRI_ITS ---
Exam(s) MR LUMBAR SPINE WO/W EXAM: MR LUMBAR SPINE WO/W CLINICAL HISTORY: bony mets. TECHNIQUE: Multiplanar multisequence MRI of the Lumbar spine was performed. COMPARISON: No exams were available for comparison FINDINGS: Bones: The last intervertebral disc space is designated the L5/S1 level for the numbering purpose of this examination. There is a T1 hypointense and T2 hyperintense lesion measuring 3.9 x 2.2 cm invol ving the right T11 vertebral body, right pedicle, right transverse process and right lamina. It does cause more mild central spinal canal stenosis. There is also mild narrowing of the right T11-T12 ne ural foramen. There are chronic compression fractures of L2 and L5. Alignment is satisfactory. There are endplate degenerative signal changes present. These findings are particularly noted at L4-L5. Cord: The conus tip ends at the L1 level. It is of normal size and signal intensity. T12-L1: No disc herniations or bulges are present. No central spinal canal or neural foraminal stenos is. L1-2: No disc herniations or bulges are present. No central spinal canal or neural foraminal stenosis . L2-3: No disc herniations or bulges are present. No central spinal canal or neural foraminal stenosis . L3-4: There is a mild diffuse disc bulge. No central spinal canal or neural foraminal stenosis. L4-5: There is a mild diffuse disc bulge. No central spinal canal stenosis. There is mild bilateral neural foraminal stenosis. L5-S1: No disc herniations or bulges are present. No central spinal canal or neural foraminal stenosi s. Soft tissues: The paraspinal soft tissues are unremarkable. IMPRESSION: 1. New T11 lesion involving the vertebral body and posterior elements. This is new since 2021. Prim paula concern is for a metastatic lesion. 2. Multilevel degenerative changes in the lumbar spine as described above. DATA REPOSITORY:
[2022-09-24] MEDS: Gadoterate meglumine 20 ML SYRINGE 18 ML IVP (12:45)
--- NOTE | 2022-09-24 13:10 | DI.MRI_ITS ---
Exam(s) MR PELVIS WO/W EXAM: MR PELVIS WO/W CLINICAL HISTORY: bony mets TECHNIQUE: Multiplanar multisequence MRI of Pelvis was performed. CONTRAST MATERIAL: IV Contrast: 18 mL of Dotarem contrast administered. COMPARISON: CT CT ABDOMEN PELVIS W from 09/19/2022 FINDINGS: Bones: There is no fracture or contusion pattern. There are 2 lesions in the right aspect of the sac rum which are hypointense on the T1 weighted images and hyperintense on the T2 weighted images. The larger lesion measures 2 x 1.7 cm. The smaller lesion seen in the superior aspect of the right sacra l ala measures 1.5 x 1.2 cm. Both of these lesions show enhancement. They were not present on the p rior CT examination from 2019. The symphysis pubis is unremarkable. Musculotendinous structures: Musculotendinous structures demonstrate no abnormality. Soft tissues: The prostate gland is mildly enlarged. There is diverticulosis of the colon but no zenon dence of acute diverticulitis. There is a small fat containing right inguinal hernia and a tiny fat containing left inguinal hernia. IMPRESSION: 1. Two enhancing right sacral lesions which are new. Findings are suspicious for metastatic disease. 2. Colonic diverticulosis. 3. Enlarged prostate gland. DATA REPOSITORY:
--- NOTE | 2022-09-24 14:24 | W.PM.PROGNOT ---
Date of Service Date of service: 09/24/22 Time of Service: 14:57 Assessment and Plan Assessment and plan (1) COPD exacerbation: Status: Acute Assessment and plan: Continue scheduled + prn nebs, steroids, mucinex, symbicort. stop zosyn completed day 6 Continue Trilogy at night/supplemental O2 by NC during the day. (2) Paroxysmal atrial fibrillation: Status: Chronic Assessment and plan: Appears to be in NSR. Continue digoxin, diltiazem. Not on anticoagulation. (3) Steroid-induced hyperglycemia: Status: Acute Assessment and plan: blood sugars will controlled today continue ss insulin as needed. follow up outpatient with pcp (4) DVT prophylaxis: Status: Acute Assessment and plan: hematest positive so no chemical TEDs. (5) Discharge planning issues: Status: Acute Assessment and plan: Full code Palliative care consulted. Continues to require hospitalization. Speech therapy recommendations from prior admission: When possible ask Yes/No questions Ask patient to speak slowly If needed, patient prefers to write when others are unable to understand him rather than use a picture board. Can be discharged to home with svc v no svc. Follow up out pt; MRI status pending Discussed with Dr Da Silva Subjective Subjective Patient reports: no new complaints, feels better, tolerating liquids well, tolerating a regular diet and afebrile Exam Const General: cooperative, no acute distress and not diaphoretic Orientation: alert, awake and oriented x3 Limitations: mental status not altered Neck Neck: normal visual inspection, full ROM and supple Chest Chest: normal inspection of the chest Resp Effort & Inspection: normal respiratory effort Auscultation: wheezes expiratory wheezes and scattered wheezes Cardio Jugular venous pressure: no JVD Rate: regular rate Rhythm: regular rhythm Skin General skin exam: no rashes or lesions noted Neuro General: patient alert, patient awake, patient oriented x3, tone normal and moves all extremities Objective Last Vital Signs Temp 36.6 C 09/24/22 08:07 Pulse 88 09/24/22 09:18 Resp 18 09/24/22 08:07 BP 149/91 H 09/24/22 08:07 Pulse Ox 96 09/24/22 08:54 Laboratory Results - last 24 hr 09/24/22 09/24/22 06:50 06:50 WBC 21.19 H RBC 5.65 Hgb 13.7 Hct 46.1 MCV 82 MCH 24.2 L MCHC 29.7 L RDW 16.0 H Plt Count 523 H MPV 9.3 Immature Gran % 3.6 Neutrophils % 69.0 Lymphocytes % 16.6 Monocytes % 9.2 Eosinophils % 1.2 Basophils % 0.4 Nucleated RBC % 0.0 Absolute Neutrophils 14.62 H Absolute Lymphocytes 3.52 H Absolute Monocytes 1.95 H Absolute Eosinophils 0.25 Absolute Basophils 0.08 RBC Morphology See Below Hypochromasia 1+ Anisocytosis 1+ Sodium 143 Potassium 4.0 Chloride 103 Carbon Dioxide 34.5 H Anion Gap 5.5 BUN 30 H Creatinine 0.9 Est GFR (CKD-EPI 2020) 94.19 Glucose 97 Calcium 9.2 Magnesium 2.3 Time Spent with Patient Time Spent with Patient: 25-34 minutes Time was spent: preparing to see the patient(eg.review tests), obtaining and/or reviewing separately otained hiistory, ordering medications,tests, procedures, indepentently interpreting results and counseling the patient
--- NOTE | 2022-09-24 16:25 | DI.VRAD_ITS ---
PROCEDURE INFORMATION: Exam: MR Pelvis Without and With Contrast, Musculoskeletal Exam date and time: 09/24/2022 12:09 PM Age: 67 years old Clinical indication: Abnormal findings; Abnormal imaging test; Patient HX: Abnormal CT TECHNIQUE: Imaging protocol: Magnetic resonance imaging of the pelvis without and with contrast. Exam focused on the musculoskeletal system. Contrast material: DOTAREM; Contrast volume: 18 ml; Contrast route: INTRAVENOUS (IV); COMPARISON: 1. CT ABDOMEN PELVIS W 05/06/2020 4:[address] ABDOMEN PELVIS W 09/19/2022 8:17 PM FINDINGS: Bowel: Colonic diverticulosis. Reproductive: Mildly enlarged prostate. Nodularity, and heterogeneity of the transition zone, compatible with hyperplasia. Bones/joints: Lumbar spine findings are dictated separately. Hypointense T1 and hyperintense T2 lesion in the right aspect of the S1 vertebral body, measuring 20 mm x 17 mm. Hypointense T1 and hyperintense T2 lesion in the superior aspect of the right sacral ala, measuring 15 mm x 12 mm. Sacral lesions are appreciable on the patient's recent comparison CT but appear new since the patient's CT from 2019. Both lesions are hyperenhancing. Trace right hip joint effusion. No significant hip joint DJD. No evidence of femoral head osteonecrosis. No acute fracture. Soft tissues: Small fat containing indirect right inguinal hernia. Tiny fat containing indirect left inguinal hernia. IMPRESSION: 1. Hyperenhancing 20 mm and 15 mm sacral lesions. Given that both of these lesions appear new since 2019, they are favored to represent metastases. 2. Colonic diverticulosis. 3. Mildly enlarged prostate and prostatic hyperplasia. Dictated and Authenticated by: Stephany Ortiz MD. Ordering:HUE Cruz MD
--- NOTE | 2022-09-24 16:44 | DI.VRAD_ITS ---
PROCEDURE INFORMATION: Exam: MR Lumbar Spine Without and With Contrast Exam date and time: 09/24/2022 11:05 AM Age: 67 years old Clinical indication: Abnormal findings; Bone lesion, lumbosacral; Patient HX: Abnormal CT TECHNIQUE: Imaging protocol: Magnetic resonance imaging of the lumbar spine without and with contrast. Contrast material: DOTAREM; Contrast volume: 18 ml; Contrast route: INTRAVENOUS (IV); COMPARISON: CT ABDOMEN PELVIS W 09/19/2022 8:17 PM FINDINGS: Bones/joints: T1 hypointense and T2 hyperintense lesion measures 3.9 x 2.2 cm involving the T11 right vertebral body which is slightly expansile and enhancing and involves the right pedicle, transverse process and right lamina with minimal spinal canal stenosis. Mild stenosis of right neural foramina at T11-T12. Chronic compression fractures of L5 and L2 vertebra. Spinal cord: Visualized cord, conus medullaris and cauda equina are unremarkable without compression. Disc bulge at L3-L4 and L4-L5 with mild bilateral neural foraminal narrowing at L3-L4 and moderate at L4-L5. IMPRESSION: Enhancing lesion involving the right T11 vertebral body and right posterior elements. This lesion is new since 2021 and favor to be metastasis. Dictated and Authenticated by: Guille Reardon MD. Ordering:HUE Cruz MD
[2022-09-24] MEDS: Insulin Aspart 300 UNITS/3 ML PEN SC ×2 (17:50→20:27)
[2022-09-25] VITALS (12 sets, daily range): BP systolic 133–154; BP diastolic 70–84; PULSE 74–89; RESP 8–18; TEMP 35.2–36.4; O2SAT 92–99
--- NOTE | 2022-09-25 | DI.CT_ITS ---
Exam(s) CT CHEST W EXAM: CT CHEST W CLINICAL HISTORY: New suscpicious lesions in pelvis/abdomen; TECHNIQUE: Imaging Protocol: Axial computed tomography images with coronal and sagittal reformatted images were created and reviewed CONTRAST MATERIAL: Intravenous: Omnipaque 350Contrast volume:70 mL. COMPARISON: CT CT CHEST LUNG CANCER SCREEN from 02/21/2022 CR XR CHEST 2V PA LATERAL from 09/18/2022 FINDINGS: The examination is limited due to patient motion artifact. Tracheobronchial tree: Patent where visualized. Pulmonary parenchyma: Emphysematous changes are present in the lungs. There is scarring and traction bronchiectasis in the left upper lobe laterally. There is bronchiectasis in the right lower lobe. There is a 9 mm ovoid density in the inferior aspect of the right upper lobe. No focal consolidating infiltrates are present. Mediastinum and Radha: No dominant adenopathy or fluid collection. The esophagus is unremarkable. Thyroid gland: Unremarkable. Pleura: No effusion or pneumothorax. Heart: The heart is not dilated. Mild coronary artery calcification is present. No pericardial effus ion. Aorta: Thoracic aorta non-dilated. Atherosclerosis is present. Pulmonary arteries: The segmental and subsegmental pulmonary arteries are inadequately opacified for evaluation of pulmonary emboli. No large central pulmonary embolus is present. Upper abdomen: Multiple splenic masses are seen. They are unchanged compared to the CT scan from 6 days prior. Lymph nodes: Within normal limits. Bones: Within normal limits for the patient's age. There are old healed bilateral rib fractures. Th ere is again seen a lytic lesion involving the vertebral body and posterior elements of T11 which rosa ears stable. No other lytic or sclerotic lesions are seen in the bones. Soft tissues: Unremarkable. IMPRESSION: 1. 9 mm ovoid density in the right upper lobe. A PET CT scan may be useful for further evaluation gi eboni the splenic and bony findings. Primary metastatic disease should be considered. 2. Emphysema and bronchiectasis. 3. Stable T11 lytic lesion and splenic masses. RADIATION DOSE DELIVERED: 644.97mGy.cm Total DLP DATA REPOSITORY: All CT scans at this facility are submitted to the National Radiology Data Registry (NRDR) Dose Index Registry (DIR) with the [employer] (A[employer]). RADIATION OPTIMIZATION: All CT scans at this facility use at least one of these dose optimization te chniques: automated exposure control; mA and/or kV adjustment per patient size (includes targeted exa ms where dose is matched to clinical indication); or iterative reconstruction.
[2022-09-25] MEDS: Ipratropium 0.5 MG/2.5 ML UPD VIAL IH ×5 (02:16→20:23)
[2022-09-25] MEDS: Pantoprazole 40 MG VIAL IVP ×2 (06:22→17:10)
[2022-09-25] MEDS: Normal Saline Flush 10 ML SYR IVP ×2 (07:07→08:29)
[2022-09-25] MEDS: Sucralfate 1 GM TAB PO ×4 (07:46→22:00)
[2022-09-25] MEDS: guaiFENesin 600 MG TABCR PO ×2 (08:25→20:22)
[2022-09-25] MEDS: Furosemide 20 MG TAB PO (08:25)
[2022-09-25] MEDS: dilTIAZem CD 120 MG CAPCR 240 MG PO ×2 (08:25→20:00)
[2022-09-25] MEDS: Ascorbic Acid 500 MG TAB PO (08:26)
[2022-09-25] MEDS: predniSONE 20 MG TAB 40 MG PO (08:26)
[2022-09-25] MEDS: Digoxin 0.125 MG TAB PO (08:28)
[2022-09-25] MEDS: Roflumilast 500 MCG TAB PO (08:28)
[2022-09-25] MEDS: Potassium Chloride Liquid 20 MEQ PKT 40 MEQ PO (08:28)
[2022-09-25] MEDS: Nystatin POWDER 15 GM JAR TP ×2 (08:29→20:24)
--- NOTE | 2022-09-25 08:48 | PDOC.CMPRO ---
- If Service Date Differs Date of service: 09/25/22 Time of Service: 08:48 Care Management Progress Note S/O: Dave continues to require hospitalization and further medical work up. Urology and Surgical following. He met with Palliative care today and remains a full code. Anticipate, Dave will discharge home with close outpatient follow up when medically ready. A: 67 year old male admitted to [facility] on 09/18/22 for COPD exacerbation, Paroxysmal atrial fibrillation P: Anticipate, Dave will be discharged home when medically cleared by provider with a resumption of [facility] RN, home oxygen (Scotty), MOW, and [facility] - Highest needs. He will follow up with his PCP and discharge plan of care as directed. Transport home will either be via private vehicle with his son or RCT arranged by CM. CM will continue to support patient and discharge planning needs.
[2022-09-25] MEDS: Levalbuterol 1.25 MG/3 ML UPD VIAL UPD ×4 (09:29→20:23)
[2022-09-25] MEDS: Budesonide/Formoterol 160/4.5 6 GM 60 PUFF INH IH ×2 (09:32→20:26)
[2022-09-25] MEDS: Tiotropium Bromide-Respimat 10 PUFF INH 2 PUFF IH (09:32)
[2022-09-25] MEDS: Normal Saline - Diluent 50 ML VIAL IJ (14:23)
[2022-09-25] MEDS: Omnipaque 350 MG/ML 100 ML BTL IJ (14:24)
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
[2022-09-25] MEDS: Insulin Aspart 300 UNITS/3 ML PEN SC ×2 (17:10→22:43)
[2022-09-25 17:36] LABS: Procalcitonin < 0.1 ng/mL
[2022-09-26] VITALS (7 sets, daily range): BP systolic 156; BP diastolic 67; PULSE 70–94; RESP 2–16; TEMP 36.3; O2SAT 90–98
[2022-09-26 06:25] LABS: Absolute Basophil Count 0.08 10^3/uL (0.0-0.2); Absolute Eosinophil Count 0.12 10^3/uL (0.0-0.7); Absolute Monocyte Count 1.67 10^3/uL (0.1-0.8); Basophils % 0.4; Eosinophils % 0.6; HCT 43.7 % (40.0-50.0); Lymphocytes % 16.1; MCH 24.2 pg (27.0-33.0); MCHC 29.7 % (32.0-36.0); MCV 81 fL (80-95); MPV 9.3 fL (8.0-11.0); Monocytes % 8.4; Neutrophils % 70.5; Platelet Count 436 10^3/uL (130-400); RBC 5.37 10^6/uL (4.36-5.78); RDW 16.2 % (11.8-14.1); RDW-SD 47.4 fL; WBC 19.92 10^3/uL (4.4-10.8)
[2022-09-26 06:55] LABS: BUN 27 mg/dL (7-18); CREATININE 0.8 mg/dL (0.70-1.30); Chloride 103 mmol/L (98-107); Estimated GFR 97.61 (mL/min/1.73m2); Glucose 172 mg/dL (74-106); Potassium 3.8 mmol/L (3.5-5.1); Sodium 140 mmol/L (136-145)
[2022-09-26 07:24] LABS: Absolute Lymphocyte Count 3.21 10^3/uL (1.2-3.4); Absolute Neutrophil Count 14.04 10^3/uL (1.2-6.7)
[2022-09-26 07:35] LABS: Anisocytosis 1+; Diff Comment Agrees w/ Instrument
[2022-09-26] MEDS: Budesonide/Formoterol 160/4.5 6 GM 60 PUFF INH IH (07:55)
[2022-09-26] MEDS: Levalbuterol 1.25 MG/3 ML UPD VIAL UPD ×2 (07:55→13:16)
[2022-09-26] MEDS: Tiotropium Bromide-Respimat 10 PUFF INH 2 PUFF IH (07:55)
[2022-09-26] MEDS: Ipratropium 0.5 MG/2.5 ML UPD VIAL IH ×2 (07:56→13:18)
[2022-09-26] MEDS: Potassium Chloride Liquid 20 MEQ PKT 40 MEQ PO (09:20)
[2022-09-26] MEDS: Sucralfate 1 GM TAB PO ×2 (09:24→11:32)
[2022-09-26] MEDS: Ascorbic Acid 500 MG TAB PO (09:24)
[2022-09-26] MEDS: Roflumilast 500 MCG TAB PO (09:25)
[2022-09-26] MEDS: Furosemide 20 MG TAB PO (09:25)
[2022-09-26] MEDS: predniSONE 20 MG TAB 40 MG PO (09:25)
[2022-09-26] MEDS: dilTIAZem CD 120 MG CAPCR 240 MG PO (09:25)
[2022-09-26] MEDS: guaiFENesin 600 MG TABCR PO (09:26)
[2022-09-26] MEDS: Digoxin 0.125 MG TAB PO (09:29)
--- NOTE | 2022-09-26 10:27 | CMPROGNOTE_ITS ---
- If Service Date Differs Date of service: 09/26/22 Time of Service: 10:27 Care Management Progress Note S/O: Dave is sitting in his chair when CM met with him. Urology and Surgical following. He met with Palliative care yesterday and remains a full code. Anticipate, Dave will discharge home with close outpatient follow up with resumption of CFC services and [facility] RN, add PT/OT when medically ready. A: 67 year old male admitted to [facility] on 09/18/22 for COPD exacerbation, Paroxysmal atrial fibrillation P: Anticipate, Dave will be discharged home when medically cleared by provider with a resumption of [facility] RN, home oxygen (Scotty), MOW, and CFC - Highest needs. He will follow up with his PCP and discharge plan of care as directed. Transport home will either be via private vehicle with his son or RCT arranged by CM. CM will continue to support patient and discharge planning needs.
[2022-09-26] MEDS: Pantoprazole 40 MG VIAL IVP (10:33)
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
--- NOTE | 2022-09-26 12:33 | W.PM.PROGNOT ---
Date of Service Date of service: 09/25/22 Time of Service: 12:33 Assessment and Plan Assessment and plan (1) COPD exacerbation: Status: Acute Assessment and plan: Continue scheduled + prn nebs, steroids, mucinex, symbicort. stop zosyn completed day 7 Continue Trilogy at night/supplemental O2 by [place] during the day. (2) Paroxysmal atrial fibrillation: Status: Chronic Assessment and plan: Appears to be in NSR. Continue digoxin, diltiazem. Not on anticoagulation. (3) Steroid-induced hyperglycemia: Status: Acute Assessment and plan: blood sugars will controlled today continue ss insulin as needed. follow up outpatient with pcp (4) DVT prophylaxis: Status: Acute Assessment and plan: hematest positive so no chemical TEDs. (5) Discharge planning issues: Status: Acute Assessment and plan: Full code Palliative care consulted. Continues to require hospitalization. Speech therapy recommendations from prior admission: When possible ask Yes/No questions Ask patient to speak slowly If needed, patient prefers to write when others are unable to understand him rather than use a picture board. Can be discharged to home with svc v no svc. Follow up out pt; MRI status pending Discussed with Dr Da Silva Subjective Subjective Patient reports: no new complaints, voiding w/o difficulty, bowel movement and afebrile; denies diarrhea, vomiting or shortness of breath Interval history since last seen: Back to baseline - he is speaking in full sentences, anxious to go home. Enjoys his meals, eats everything and asks not to be disturbed during meal times. Exam Const General: cooperative, no acute distress and not diaphoretic Orientation: alert, awake and oriented x3 Limitations: mental status not altered Neck Neck: normal visual inspection, full ROM and supple Chest Chest: normal inspection of the chest Resp Effort & Inspection: normal respiratory effort Auscultation: wheezes expiratory wheezes and scattered wheezes Cardio Jugular venous pressure: no JVD Rate: regular rate Rhythm: regular rhythm Skin General skin exam: no rashes or lesions noted Neuro General: patient alert, patient awake, patient oriented x3, tone normal and moves all extremities Objective Last Vital Signs Temp 36.3 C L 09/26/22 08:00 Pulse 71 09/26/22 09:29 Resp 16 09/26/22 08:00 BP 156/67 H 09/26/22 08:00 Pulse Ox 90 L 09/26/22 09:00 Laboratory Results - last 24 hr 09/25/22 09/25/22 09/25/22 16:35 Unknown Unknown WBC RBC Hgb Hct MCV MCH MCHC RDW Plt Count MPV Immature Gran % Neutrophils % Lymphocytes % Monocytes % Eosinophils % Basophils % Nucleated RBC % Absolute Neutrophils Absolute Lymphocytes Absolute Monocytes Absolute Eosinophils Absolute Basophils RBC Morphology Anisocytosis Sodium Potassium Chloride Carbon Dioxide Anion Gap BUN Creatinine Est GFR (CKD-EPI 2020) Glucose Calcium Magnesium Procalcitonin < 0.1 Add-On Test Request Cancelled Cancelled 09/26/22 09/26/22 05:48 05:48 WBC 19.92 H RBC 5.37 Hgb 13.0 L Hct 43.7 MCV 81 MCH 24.2 L MCHC 29.7 L RDW 16.2 H Plt Count 436 H MPV 9.3 Immature Gran % 4.0 Neutrophils % 70.5 Lymphocytes % 16.1 Monocytes % 8.4 Eosinophils % 0.6 Basophils % 0.4 Nucleated RBC % 0.0 Absolute Neutrophils 14.04 H Absolute Lymphocytes 3.21 Absolute Monocytes 1.67 H Absolute Eosinophils 0.12 Absolute Basophils 0.08 RBC Morphology See Below Anisocytosis 1+ Sodium 140 Potassium 3.8 Chloride 103 Carbon Dioxide 32.0 Anion Gap 5.0 BUN 27 H Creatinine 0.8 Est GFR (CKD-EPI 2020) 97.61 Glucose 172 H Calcium 9.0 Magnesium 2.0 Procalcitonin Add-On Test Request Time Spent with Patient Time Spent with Patient: 25-34 minutes Time was spent: preparing to see the patient(eg.review tests), ordering medications,tests, procedures, referring, communicating with other health wild animal caretaker, indepentently interpreting results, counseling the patient and care coordination
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
[2022-09-26 19:42] LABS: PSA, Screening 1.3 ng/mL (<=4.5)
--- NOTE | 2022-09-26 22:09 | PDOC.HHF2F ---
Home Health Referral Home Health Orders Clinical synopsis of why skilled professionals are needed: This is a 67-year-old patient with past medical history of A-fib, hypertension, pulmonary hypertension, paroxysmal supraventricular tachycardia, hyperlipidemia, COPD with chronic respiratory failure with hypoxia and is O2 dependent who presented to the [facility] emergency department on 09/18/2022 via EMS for shortness of breath.? Patient reported this had been going on for the last 3 weeks and was not improving.? Patient reported this all started when he was placed on a new inhaler.? Patient did report that he was leery about being at the hospital and did not offer much for conversation other than straightforward facts.?In the ED physical exam revealed slightly tachypneic patient with diffuse wheezing and wet cough audible during exam.? Patient had slight tachycardia otherwise exam was unremarkable.?Patient's past medical significant history of COPD, chronic respiratory failure with hypoxia and is O2 dependent.? Review of labs in the ED showed a significant leukocytosis and slight anemia, CMP showed low chloride, high carbon dioxide, BUN 21, AST alk phos are abnormal but near patient's baseline.? Initial troponin was negative and BNP was only 52.? Patient negative for COVID flu and RSV.? Patient's digoxin level was low at 0.51.? Chest x-ray in comparison to previous x-ray done in April 2022 does show an abnormal area in the left midlung that could be possible.eumonia.? Right lung looked similar in comparison to last chest xray.?? 2 view imaging did show left midlung opacity that may represent atelectasis scarring or infiltrate.? Due to this and patient still stating some shortness of breath in spite of 2 DuoNebs and steroids patient was admitted ?to the medical floor for COPD exacerbation.? He was started on IV antibiotics. He received 7 days of Zosyn.? He uses Trilogy at night and supplemental oxygen by nasal cannula during the day.? His atrial fibrillation is chronic and stable with digoxin and diltiazem.? He has steroid induced hyperglycemia and received insulin as needed while hospitalized.? He had heme positive stools here and was seen by surgery. He had some diverticulosis on his CT scan which could be a source of gastrointestinal blood loss, his internal contribute to intermittent rectal bleeding.? There was no emergent indication for EGD or colonoscopy. Surgery felt with his comorbidities, he is certainly high risk, and it may be that he would be best served with elective endoscopy procedure at a tertiary care institution that will be more equipped to support his severe COPD. CT of abdomen shower interval increase in size and number of splenic lesions since 2019.? Radiology suggested this may be splenic metastases.? There are new bony lesions involving the right sacrum and T11 vertebral body. A MRI was done and there are two enhancing right sacral lesions that are new.? A chest CT was done and there is a 9 mm ovoid density in the right upper lobe that is new.? Radiology recommends a PET scan, ?and suggests this is the primary metastatic lesion; we will have the pulmonology clinic follow up and further evaluate this. He was discharged to home stable with an appointment made to the pulmonology clinic and with a steroid taper. We will resume HH nursing and add PT and OT per request of PT Medical diagnosis necessitation home health referral: COPD; oxygen dependent; Registered Nurse: Check all that apply Instruct on new or changed medication(s)/assess compliance: Ordered Assess for exacerbation of medical condition, instruct patient/caregivers on signs and symptoms to report for early detection: Ordered Physical Therapist: Check all that apply Increase strength & endurance for safe mobility at home: Ordered To design/establish home maintenance program: Ordered Fall reduction therapy program for patient with history of frequent falls: Ordered Home safety evaluation and teaching/gait training including stair management (if applicable): Ordered Better Breathing Program: Ordered Occupational Therapist: Evaluate and treat for patient unable to perform ADL/IADL/self-care: Ordered Upper extremity strengthening, range and motion: Ordered Automatic Lathe Setter: Other: Has family independence case manager Home Bound Status Patient has a condition such that leaving home is medically contraindicated (Describe): requires oxygen 100% of the time, 27/01 Describe why leaving home would require a considerable and taxing effort: Oxygen Encounter Date and Reason: I certify that a FTF encounter for this patient was performed on September 26, 2022 and that such encounter was related to the primary reason the patient requires home health services. The encounter was conducted in the following manner: By me as the certifying physician, FIELD TRAINING AGENT, PA or By an inpatient physician, FIELD TRAINING AGENT or PA during an inpatient stay who communicated findings to me, Certification And Authentication I certify that I composed the above information based on my clinical judgment relating to this patient's medical condition and, if applicable, clinical findings communicated to me by the NPP or inpatient physician who performed the FTF encounter. Name of Provider that will be monitoring home health services: Bradley De La Cruz
[2022-09-27 12:41] LABS: Albumin 59.4 % (55.8-66.1); Albumin g/dL 3.9 g/dL (3.6-5.2); Total Protein 6.6 g/dL (6.3-8.2)
[2022-09-29 13:04] LABS: Lab Add On Test DONE
[2022-09-29 13:34] LABS: Hemoglobin A1C 6.3 % (<5.7)
[2022-09-29 13:43] LABS: TSH 0.98 uIU/mL (0.36-3.74)
== END 2022-09-26 13:44 | disposition home health service (06) | DRG 191 ==
LOC: ER 16:19 → MS 16:50
PROVIDERS: Nurse Practitioner Acute Care; Nurse Practitioner Family; Student in an Organized Health Care Education/Training Program; Admitting Provider Internal Medicine; Emergency Provider Nurse Practitioner Family; PCP Family Medicine; Visit Provider Internal Medicine
DX: J44.1 Chronic obstructive pulmonary disease with (acute) exacerbation (principal); I47.1 Supraventricular tachycardia; J96.11 Chronic respiratory failure with hypoxia; I48.0 Paroxysmal atrial fibrillation; R10.9 Unspecified abdominal pain; K08.109 Complete loss of teeth, unspecified cause, unspecified class; I10 Essential (primary) hypertension; I27.20 Pulmonary hypertension, unspecified; R26.2 Difficulty in walking, not elsewhere classified; F41.9 Anxiety disorder, unspecified; I48.91 Unspecified atrial fibrillation; E78.5 Hyperlipidemia, unspecified; D64.9 Anemia, unspecified; E87.8 Other disorders of electrolyte and fluid balance, not elsewhere classified; K64.8 Other hemorrhoids; R91.1 Solitary pulmonary nodule; K21.9 Gastro-esophageal reflux disease without esophagitis; F22 Delusional disorders; Z87.891 Personal history of nicotine dependence; R73.9 Hyperglycemia, unspecified; T38.0X5A Adverse effect of glucocorticoids and synthetic analogues, initial encounter; I25.2 Old myocardial infarction; R42 Dizziness and giddiness; I69.398 Other sequelae of cerebral infarction; Z87.820 Personal history of traumatic brain injury; R47.89 Other speech disturbances; R19.5 Other fecal abnormalities
CPT/HCPCS: 36415; 36416; 72158; 72197; 80048; 80053; 82962; 84145; 84153; 87040; 87637; 93005; 94640; 96374; 96375; 99221; 99285; J1650; 71045; 71046; 71260; 74177; 80162; 83036; 83735; 83880; 84165; 84443; 84484; 85025; 85610; 85730; 93010; 94664; 94668; 94760; 99222; 99232; 99233; 99239; J2543; J2930; J3490; J7512; J7614; J7620; J7644; Q9967

== ENCOUNTER 2022-10-09 05:34 | Emergency (ER) | payer MEDICARE, MEDICAID, SELFPAY ==
[2022-10-09] VITALS (24 sets, daily range): BP systolic 114–136; BP diastolic 58–76; PULSE 75–167; RESP 14–30; TEMP 37.1; O2SAT 92–97
--- NOTE | 2022-10-09 05:30 | DI.RAD_ITS ---
Exam(s) XR PORTABLE CHEST AP EXAM: XR PORTABLE CHEST AP CLINICAL HISTORY: Shortness of breath TECHNIQUE: 2D digital imaging was performed. COMPARISON: CR XR PORTABLE CHEST AP from 09/18/2022 CR XR CHEST 2V PA LATERAL from 09/18/[address] CHEST W from 09/25/2022 FINDINGS: LUNGS: Underlying emphysematous and fibrotic changes. No superimposed infiltrate or pulmonary edema. No pleural abnormality seen. HEART: Normal size for projection.. AORTA: Normal diameter. BONES: Unremarkable for age. Soft tissues: Unremarkable. IMPRESSION: No acute findings. DATA REPOSITORY: RADIATION DOSE DELIVERED:
--- NOTE | 2022-10-09 05:30 | RT.EKG_ITS ---
APPROVED REPORT Exam: Resting ECG Reason for Exam: chest pain Patient Location: E HR:160 bpm ECG Measurements Heart Rate 160 AXIS W[place] [id number] P [id number] QRSd 75 QRS 73 QT 263 T 254 QTc 429 Conclusion Atrial fibrillation with rapid V-rate...A-rate 183 Repolarization abnormality, prob rate related...ST dep, T neg, tachycardia atrial fibrillation with RVR at a rate of 160. Narrow complex. Mild lateral ST segment depressions. No ST segment elevations.
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
--- NOTE | 2022-10-09 05:45 | RT.EKG_ITS ---
APPROVED REPORT Exam: Resting ECG Reason for Exam: Palpitations Patient Location: E HR:77 bpm ECG Measurements Heart Rate 77 AXIS LA 132 P 70 QRSd 84 QRS 69 QT 332 T 62 QTc 377 Conclusion Sinus rhythm...normal P axis, V-rate 60- 99 Repeat ECG showing narrow complex normal sinus rhythm at a rate of 77. Intervals within normal limit s. No acute injury pattern. Compared to prior dated earlier this evening sinus rhythm has replaced A-fib with RVR.
[2022-10-09 05:59] LABS: Absolute Eosinophil Count 0.41 10^3/uL (0.0-0.7); Absolute Lymphocyte Count 2.44 10^3/uL (1.2-3.4); Absolute Monocyte Count 1.38 10^3/uL (0.1-0.8); Absolute Neutrophil Count 11.48 10^3/uL (1.2-6.7); Basophils % 0.3; Eosinophils % 2.6; HCT 37.6 % (40.0-50.0); Immature Grans % 0.6; Lymphocytes % 15.4; MCH 24.4 pg (27.0-33.0); MCHC 29.3 % (32.0-36.0); MCV 83 fL (80-95); Monocytes % 8.7; Neutrophils % 72.4; Platelet Count 238 10^3/uL (130-400); RBC 4.51 10^6/uL (4.36-5.78); RDW 17.2 % (11.8-14.1); RDW-SD 52.4 fL; WBC 15.85 10^3/uL (4.4-10.8)
[2022-10-09 06:01] LABS: Absolute Basophil Count 0.05 10^3/uL (0.0-0.2)
[2022-10-09] MEDS: dilTIAZem CD 120 MG CAPCR PO (06:04)
[2022-10-09 06:21] LABS: ALT 64 U/L (16-63); AST 17 U/L (15-37); Albumin 3.1 g/dL (3.4-5.0); Alkaline Phosphatase 98 U/L (46-116); Anion Gap 3.6 mmol/L (3-11); BUN 14 mg/dL (7-18); Bilirubin, Total 0.3 mg/dL (0.2-1.0); CO2 33.4 mmol/L (21.0-32.0); CREATININE 0.7 mg/dL (0.70-1.30); Calcium 8.7 mg/dL (8.5-10.1); Chloride 104 mmol/L (98-107); Estimated GFR 101.62 (mL/min/1.73m2); Glucose 118 mg/dL (74-106); Magnesium 1.8 mg/dL (1.8-2.4); Sodium 141 mmol/L (136-145); Total Protein 6.4 g/dL (6.4-8.2)
--- NOTE | 2022-10-09 06:23 | SUR.PHASEI ---
pt heart rate and rhythm change to sinus rhythm with a rate of 80
[2022-10-09 06:28] LABS: Troponin I < 50 ng/L (<or=60)
[2022-10-09 06:29] LABS: Digoxin < 0.20 ng/mL (0.90-2.00)
--- NOTE | 2022-10-09 08:30 | RT.EKG_ITS ---
APPROVED REPORT Exam: Resting ECG Reason for Exam: chest pain Patient Location: E HR:80 bpm ECG Measurements Heart Rate 80 AXIS MN 170 P 56 QRSd 81 QRS 63 QT 347 T 44 QTc 399 Conclusion Sinus rhythm...normal P axis, V-rate 60- 99. Sinus. Normal axis. Artifact. Normal intervals. No STEMI. I have reviewed and interpreted ECG and agree with software generated interpretation.
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
[2022-10-09 09:06] LABS: Troponin I < 50 ng/L (<or=60)
--- NOTE | 2022-10-09 09:34 | DI.VRAD_ITS ---
PROCEDURE INFORMATION: Exam: XR Chest Exam date and time: 10/09/2022 5:34 AM Age: 67 years old Clinical indication: Shortness of breath TECHNIQUE: Imaging protocol: Radiologic exam of the chest. 1image(s) are provided. Views: 1 view. COMPARISON: 1. CT CHEST W 09/25/2022 1:30 PM 2. CR XR CHEST 2V PA LATERAL 09/18/2022 2:57 PM FINDINGS: Lungs: There is chronic air trapping emphysematous and bleb type appearance along with some bronchi similar. There is some apical fibronodular scarring demonstrated similar overall with some densities demonstrated similar appearance and distribution overall at the left midlung zone and right upper lung zone corresponding to the CT chest description and recommendation. Basal aeration appears marginally improved.No lobar consolidation is appreciated. Pleural spaces: No pneumothorax or pleural effusion is appreciated. Heart/Mediastinum: The cardiomediastinal silhouette is upper normal in size.This can be seen with central averaging as well as prema enlargement. Diaphragm: The hemidiaphragms are symmetric. Bones/joints: Osseous alignment is maintained.No interval displaced fracture or dislocation is appreciated.There is slightly decreased bone mineralization overall. There is some chronic appearing rib deformities present. Soft tissues: No radiopaque foreign body or subcutaneous emphysema is appreciated. Other findings: No other significant interval changes are appreciated. IMPRESSION: There is chronic emphysematous and scarring type appearance with ground-glass nodularity at the midlung zones corresponding to the CT description and recommendation suggestive of underlying scarring nodularity with bronchiolectasis and pneumatocele related changes. No interval lobar consolidation or cardiac decompensation is appreciated. Dictated and Authenticated by: Noman Guzman MD. Ordering:RAFI Kemp MD
== END 2022-10-09 11:35 | disposition home or self-care (01) ==
PROVIDERS: Emergency Medicine; Emergency Provider Physician Assistant; PCP Student in an Organized Health Care Education/Training Program
DX: I48.91 Unspecified atrial fibrillation (principal); J44.9 Chronic obstructive pulmonary disease, unspecified; I10 Essential (primary) hypertension; R73.9 Hyperglycemia, unspecified; D72.829 Elevated white blood cell count, unspecified; D64.9 Anemia, unspecified; I25.2 Old myocardial infarction; Z79.82 Long term (current) use of aspirin; Z79.51 Long term (current) use of inhaled steroids; Z86.73 Personal history of transient ischemic attack (TIA), and cerebral infarction without residual deficits
CPT/HCPCS: 80053; 93005; 99284; 71045; 80162; 83735; 84484; 85025; 93010; 94664

== ENCOUNTER 2022-10-11 02:51 | Emergency (ER) | payer MEDICARE, MEDICAID, SELFPAY ==
[2022-10-11] VITALS (24 sets, daily range): BP systolic 127–140; BP diastolic 70–85; PULSE 100–119; RESP 19–30; TEMP 36.7; O2SAT 93–98
--- NOTE | 2022-10-11 02:30 | RT.EKG_ITS ---
APPROVED REPORT Exam: Resting ECG Reason for Exam: chest pain Patient Location: E HR:120 bpm ECG Measurements Heart Rate 120 AXIS AL 128 P 67 QRSd 82 QRS 70 QT 300 T 58 QTc 421 Conclusion Sinus tachycardia...rate> 99 Atrial premature complex...SV complex w/ short R-R interval Physician: No stemi
--- NOTE | 2022-10-11 02:58 | NUR.NOTE ---
Nursing Note: pt states that he has not been taking his diltiazem at home
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
[2022-10-11 03:09] LABS: Abs Immature Grans 0.07 10^3/uL (0.0-0.06); Absolute Basophil Count 0.06 10^3/uL (0.0-0.2); Absolute Eosinophil Count 0.42 10^3/uL (0.0-0.7); Basophils % 0.4; HCT 38.9 % (40.0-50.0); HGB 11.5 g/dL (13.5-17.5); Immature Grans % 0.5; Lymphocytes % 15.6; MCH 24.6 pg (27.0-33.0); MCHC 29.6 % (32.0-36.0); MCV 83 fL (80-95); MPV 8.7 fL (8.0-11.0); Monocytes % 8.2; Neutrophils % 72.3; Platelet Count 224 10^3/uL (130-400); RBC 4.67 10^6/uL (4.36-5.78); RDW 17.1 % (11.8-14.1); RDW-SD 51.8 fL; WBC 14.07 10^3/uL (4.4-10.8)
[2022-10-11 03:12] LABS: Absolute Lymphocyte Count 2.19 10^3/uL (1.2-3.4); Absolute Monocyte Count 1.15 10^3/uL (0.1-0.8); Absolute Neutrophil Count 10.17 10^3/uL (1.2-6.7)
[2022-10-11] MEDS: dilTIAZem CD 120 MG CAPCR 240 MG PO (03:16)
[2022-10-11] MEDS: Normal Saline 500 ML IV (03:21)
[2022-10-11 03:34] LABS: ALT 48 U/L (16-63); AST 10 U/L (15-37); Albumin 3.1 g/dL (3.4-5.0); Alkaline Phosphatase 115 U/L (46-116); Anion Gap 5.3 mmol/L (3-11); BUN 21 mg/dL (7-18); Bilirubin, Total 0.2 mg/dL (0.2-1.0); CO2 33.7 mmol/L (21.0-32.0); CREATININE 0.7 mg/dL (0.70-1.30); Calcium 9.1 mg/dL (8.5-10.1); Chloride 102 mmol/L (98-107); Estimated GFR 101.62 (mL/min/1.73m2); Glucose 115 mg/dL (74-106); Magnesium 1.9 mg/dL (1.8-2.4); NT-proBNP 117 pg/mL (<300); Potassium 3.8 mmol/L (3.5-5.1); Sodium 141 mmol/L (136-145); Total Protein 6.9 g/dL (6.4-8.2); Troponin I < 50 ng/L (<or=60)
[2022-10-11 03:56] LABS: Digoxin 0.32 ng/mL (0.90-2.00)
== END 2022-10-11 15:13 | disposition home or self-care (01) ==
PROVIDERS: Emergency Provider Student in an Organized Health Care Education/Training Program; PCP Student in an Organized Health Care Education/Training Program
DX: Z91.148 Patient's other noncompliance with medication regimen for other reason (principal); I48.91 Unspecified atrial fibrillation; R07.89 Other chest pain
CPT/HCPCS: 80053; 93005; 96360; 99283; 80162; 83735; 83880; 84484; 85025; 93010

== ENCOUNTER → 2022-10-14 09:02 | Outpatient (BNVA) | payer MEDICARE, MEDICAID, SELFPAY | PROVIDERS: PCP Student in an Organized Health Care Education/Training Program; Referring Provider Student in an Organized Health Care Education/Training Program; Visit Provider Surgery | DX: K64.8 Other hemorrhoids (principal) | CPT/HCPCS: 46221; 99213; 99214 ==

== ENCOUNTER 2022-10-25 15:41 | Outpatient (REF) | payer MEDICARE, MEDICAID, SELFPAY ==
[2022-10-25 12:12] LABS: HCT 43.2 % (40.0-50.0); HGB 12.6 g/dL (13.5-17.5); MCH 23.9 pg (27.0-33.0); MCHC 29.2 % (32.0-36.0); MCV 82 fL (80-95); MPV 9.7 fL (8.0-11.0); Platelet Count 572 10^3/uL (130-400); RBC 5.27 10^6/uL (4.36-5.78); RDW-SD 47.8 fL; WBC 13.08 10^3/uL (4.4-10.8)
[2022-10-25 12:49] LABS: Albumin 3.6 g/dL (3.4-5.0); Anion Gap 4.3 mmol/L (3-11); BUN 16 mg/dL (7-18); CO2 35.7 mmol/L (21.0-32.0); CREATININE 0.8 mg/dL (0.70-1.30); Calcium 9.3 mg/dL (8.5-10.1); Calculated LDL 147 mg/dL (<100); Chloride 101 mmol/L (98-107); Cholesterol 244 mg/dL (<200); Estimated GFR 97.61 (mL/min/1.73m2); Glucose 103 mg/dL (74-106); HDL Cholesterol 41 mg/dL (40-60); Magnesium 1.8 mg/dL (1.8-2.4); Potassium 4.7 mmol/L (3.5-5.1); Sodium 141 mmol/L (136-145); TSH (W/Ref FT4) 0.39 uIU/mL (0.36-3.74); Triglyceride 280 mg/dL (<150); Vitamin B12 321 pg/mL (193-986)
[2022-10-25 12:50] LABS: Folate > 20.0 ng/mL (8.6-20.0)
[2022-10-27 19:26] LABS: Vitamin D 25 Total 11.2 ng/mL (30-100)
== END 2022-10-25 15:42 | disposition home or self-care (01) ==
LOC: LBN 15:41
PROVIDERS: PCP Student in an Organized Health Care Education/Training Program; Visit Provider Student in an Organized Health Care Education/Training Program
DX: I10 Essential (primary) hypertension (principal); R63.5 Abnormal weight gain; E46 Unspecified protein-calorie malnutrition; R06.89 Other abnormalities of breathing; R73.9 Hyperglycemia, unspecified; R41.3 Other amnesia; R41.89 Other symptoms and signs involving cognitive functions and awareness; R60.0 Localized edema; G62.9 Polyneuropathy, unspecified; I48.91 Unspecified atrial fibrillation; K08.109 Complete loss of teeth, unspecified cause, unspecified class; E87.8 Other disorders of electrolyte and fluid balance, not elsewhere classified
CPT/HCPCS: 80048; 80061; 82306; 85027; 82040; 82607; 82746; 83735; 84443

== ENCOUNTER 2022-11-23 20:31 | Emergency (ER) | payer MEDICARE, MEDICAID, SELFPAY ==
[2022-11-23] VITALS (36 sets, daily range): BP systolic 110–151; BP diastolic 57–84; PULSE 55–149; RESP 18–33; TEMP 36.6; O2SAT 92–95
--- NOTE | 2022-11-23 20:30 | RT.EKG_ITS ---
APPROVED REPORT Exam: Resting ECG Reason for Exam: short of breath Patient Location: E HR:127 bpm ECG Measurements Heart Rate 127 AXIS W[place] [id number] P [id number] QRSd 74 QRS 77 QT 304 T 268 QTc 442 Conclusion Atrial fibrillation...V-rate 68-179, irreg A-activity Nonspecific repol abnormality, diffuse leads...ST dep, T flat/neg, ant/lat/inf Physician: no stemi
[2022-11-23] MEDS: Normal Saline 500 ML IV (20:48)
[2022-11-23 20:59] LABS: INR 0.9 (0.9-1.1); PTT Activated 25.9 sec (21.5-31.9); Prothrombin Time 9.2 sec (9.3-11.0)
--- NOTE | 2022-11-23 21:01 | ED.GENADUL_ITS ---
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 your relationship?: Yes Additional Social history: Lives in an [facility] on [facility]. Steep stairs in front but back door level with second floor. Has a hospital bed, CPAP, nebulizer, oxygen. In bed much of the time. Ex-/friend Lesly Degree lives with him. Not romantically involved. He watches a lot of TV. As of 10/05/20, he is much more independent. Walking around inside apartment. Won't go outside because I'll get shot. Won't sit on porch. Says his brother in law is after him. + delusions + paranoia Moving around well on 10/05. Exam Narrative Exam Narrative: 1.Const: Well-nourished, Well-developed, appearing stated age 2.Eyes: PERRL, no conjunctival injection, and symmetrical lids. 3.ENT: Atraumatic external nose and ears. Moist MM. Neck: Symmetric, trachea midline, No thyromegaly. 4.CVS: +S1/S2, No murmurs or gallops. Peripheral pulses 2+ and equal in all extremities. Brisk capillary refill in all extremities. 5.RESP: Unlabored respiratory effort. Clear to auscultation bilaterally. No wheezes rales or rhonchi 6.GI: Soft, Nontender/Nondistended, No hepatosplenomegaly. No guarding or rebound. 7.MSK: Normocephalic/Atraumatic, Extremities w/o deformity or ttp No cyanosis or clubbing, Normal movement of all extremities 8.Skin: Warm, Dry. No rashes or lesions. 9.Neuro: vice president of recruiting II-XII grossly intact. Sensation grossly intact, no focal neurologic deficits. 10.Psych: (AAO) x3. Appropriate mood and affect Course Vital Signs Vital signs: Vital Signs Temperature 36.6 C 11/23/22 20:35 Pulse 108 H 11/23/22 20:35 Respiratory Rate 18 11/23/22 20:35 Blood Pressure 129/79 11/23/22 20:35 Pulse Oximetry 93 11/23/22 20:35 Temperature 36.6 C 11/23/22 20:35 Temperature Source Oral 11/23/22 20:35 Pulse 108 H 11/23/22 20:35 Respiratory Rate 18 11/23/22 20:35 Respiratory Effort Normal 11/23/22 20:39 Blood Pressure 129/79 11/23/22 20:35 Blood Pressure Position Sitting 11/23/22 20:35 Pulse Oximetry 93 11/23/22 20:35 Oxygen Delivery Method Room Air 11/23/22 20:35 Oxygen Flow Rate 0 11/23/22 20:35 Lab/Test Results Lab/Test Results: Laboratory Tests Range/Units 11/23/22 20:40 PT (9.3-11.0) sec 9.2 L INR (0.9-1.1) 0.9 APTT (21.5-31.9) sec 25.9 Critical Care Time Critical Care Time Critical Care Time: Yes Total Critical Care Time: 45 Attestation: Upon my evaluation, this patient had a high probability of imminent or life- threatening deterioration, which required my direct attention, intervention, and personal management. I have personally provided 45 minutes of critical care time exclusive of time spent on separately billable procedures. Time includes review of laboratory data, radiology results, discussion with consultants, and monitoring for potential decompensation. Interventions were performed as documented.
[2022-11-23] MEDS: dilTIAZem 25 MG/5 ML VIAL 10 MG IVP (21:08)
[2022-11-23 21:19] LABS: ALT 24 U/L (16-63); AST 11 U/L (15-37); Albumin 3.6 g/dL (3.4-5.0); Alkaline Phosphatase 147 U/L (46-116); Anion Gap 4.7 mmol/L (3-11); BUN 12 mg/dL (7-18); Bilirubin, Total 0.2 mg/dL (0.2-1.0); CO2 35.3 mmol/L (21.0-32.0); CREATININE 0.7 mg/dL (0.70-1.30); Calcium 8.5 mg/dL (8.5-10.1); Chloride 103 mmol/L (98-107); Digoxin 0.47 ng/mL (0.90-2.00); Estimated GFR 101.62 (mL/min/1.73m2); Glucose 114 mg/dL (74-106); Potassium 4.4 mmol/L (3.5-5.1); Sodium 143 mmol/L (136-145); TSH (W/Ref FT4) 0.98 uIU/mL (0.36-3.74); Total Protein 7.5 g/dL (6.4-8.2); Troponin I < 50 ng/L (<or=60)
[2022-11-23 21:40] LABS: NT-proBNP 35 pg/mL (<300)
[2022-11-23 21:45] LABS: D-Dimer 933 ng/mlFEU (<500)
[2022-11-23] MEDS: Digoxin 0.125 MG TAB PO (22:13)
--- NOTE | 2022-11-23 22:15 | DI.CT_ITS ---
Exam(s) CT CHEST PE CTA EXAM: CT CHEST PE CTA CLINICAL HISTORY: sob, cancer, eval for clot. TECHNIQUE: Imaging Protocol: Axial CT angiography was performed with multi-slice acquisition and mu lti-planar and/or 3D reconstructions. CONTRAST MATERIAL: Intravenous: Omnipaque 350 contrast volume:100 mL COMPARISON: CT CT CHEST PE CTA from 02/13/[address] ABDOMEN PELVIS W from 05/06/[address] CHEST LUNG CANCER SCREEN from 02/21/[address] ABDOMEN PELVIS W from 09/19/[address] CHEST W from 09/25/2022 FINDINGS: The examination is limited due to patient motion artifact. Tracheobronchial tree: Patent where visualized. Pulmonary parenchyma: Severe emphysematous changes are present in the lungs. Previously described 9 mm nodule in the inferior aspect of the right upper lobe is not present on the current examination. This area appears to have resolved.There is a new 1.3 x 0.9 x 1.9 cm density in the left upper lobe. (Series 4, image 22). There is an also a new focal density in the left lingula measuring 1.4 x 1.2 cm (series 4, image 36). Neither of these areas were present on the CT scan of the chest from 023. The interstitial process predominantly in the lower lobes, right greater than left is unchanged compared to the examination from 09/25/2022. Show slight progression since the examination 02/21/2022 . No other infiltrates are seen. Pulmonary Arteries: No evidence of filling defect to suggest pulmonary emboli. Mediastinum and Radha: Mildly enlarged mediastinal lymph nodes. The esophagus is unremarkable. Visualized thyroid gland: Unremarkable. Pleura: No effusion or pneumothorax. Heart: Cardiomegaly. Mild coronary artery calcification. No pericardial effusion. Aorta: Thoracic aorta non-dilated. No evidence of dissection. Atherosclerosis is present. Upper abdomen: Cholelithiasis. There again seen multiple splenic masses. Soft tissues: Unremarkable. Bones: Within normal limits for the patient's age.There are old healed left rib fractures. There is a lytic lesion again seen involving the right vertebral body and pedicle of the T11 vertebra. IMPRESSION: 1. No evidence of pulmonary embolism, thoracic aortic dissection or aneurysm. 2. New densities seen in the left upper lobe and left lingula since 09/25/2022. These may represent f ocal infiltrates, scarring or atelectasis. Neoplastic process cannot be entirely excluded. A follow -up examination is recommended to document resolution and to exclude more concerning etiologies. 3. Resolution of the 9 mm nodule seen in the right upper lobe on 09/25/2022. 4. Stable bilateral predominantly lower lobe infiltrates, right greater than left. 5. The examination is limited due to patient motion artifact. 6. Severe centrilobular emphysematous changes. RADIATION DOSE DELIVERED: 522.34mGy.cm Total DLP DATA REPOSITORY: All CT scans at this facility are submitted to the National Radiology Data Registry (NRDR) Dose Index Registry (DIR) with the [employer] (ACR). RADIATION OPTIMIZATION: All CT scans at this facility use at least one of these dose optimization te chniques: automated exposure control; mA and/or kV adjustment per patient size (includes targeted exa ms where dose is matched to clinical indication); or iterative reconstruction.
--- NOTE | 2022-11-23 23:15 | RT.EKG_ITS ---
APPROVED REPORT Exam: Resting ECG Reason for Exam: chest pain Patient Location: E HR:122 bpm ECG Measurements Heart Rate 122 AXIS KS [id number] P [id number] QRSd 77 QRS 72 QT 284 T -74 QTc 404 Conclusion Atrial fibrillation...V-rate 81-153, irreg A-activity Repol abnrm suggests ischemia, diffuse leads...ST-T neg, ant/lat/inf Physician: no stemi
--- NOTE | 2022-11-23 23:52 | NUR.NOTE ---
Nursing Note: Pt self converted to NSR, rate 65.
[2022-11-24 00:02] LABS: Troponin I < 50 ng/L (<or=60)
[2022-11-24] MEDS: Omnipaque 350 MG/ML 100 ML BTL IJ (01:11)
--- NOTE | 2022-11-24 01:46 | DI.VRAD_ITS ---
PROCEDURE INFORMATION: Exam: CTA Chest With Contrast Exam date and time: 11/24/2022 12:02 AM Age: 67 years old Clinical indication: Shortness of breath TECHNIQUE: Imaging protocol: Computed tomographic angiography of the chest with contrast. Exam focused on the arteries. 3D rendering (Not supervised by radiologist): MIP and/or 3D reconstructed images were created by the technologist. Contrast material: OMNIPAQUE 350; Contrast volume: 100 ml; Contrast route: INTRAVENOUS (IV); COMPARISON: CT CHEST PE CTA 02/13/2019 7:05 PM FINDINGS: Pulmonary arteries: Pulmonary arteries are slightly prominent measuring 3.2 cm. No evidence of acute pulmonary embolism. Aorta: The aorta is normal without evidence of aneurysmal dilatation, dissection or occlusive disease. Lungs: Severe centrilobular emphysematous changes are present. Atelectasis and interstitial infiltrates present within the right greater than left lower lobes of the lung. This may represent cardiogenic versus noncardiogenic edema. An acute inflammatory process and/or infectious process/pneumonia are not excluded. There is a left upper lobe pulmonary nodule measuring 13 x 9 x 11 mm best demonstrated on image 22 series 4 and image 42 series 7. Additional lesions measuring 14 x 12.2 mm image 36 series 4 and image 17 series 4 left lower lobe of the lung. These lesions were not present previously and is highly suspicious for neoplastic process.Highly suspicious nodule(s). Consider non-emergent PET/CT, or tissue sampling.(Reference: Kika). Pleural spaces: There is no evidence of pneumothorax. There are no pleural effusions present. Heart: There is mild left ventricular hypertrophy. The right ventricular to left ventricular ratio is abnormal measuring approximately 1.1. Coronary arteries: Coronary arteriesThere is mild atherosclerotic calcification of the coronary arteries. Lymph nodes: Lymphadenopathy present at the pretracheal, precarinal, and bilateral peribronchial regions. Bones/joints: The spine, sternum, ribs, and pectoral girdles show no evidence of acute abnormality. Soft tissues: There are no soft tissue masses or fluid collections. The upper abdominal viscera are unremarkable. Other findings: Motion artifact does moderately limit the sensitivity of this examination. The mediastinal structures are normal. IMPRESSION: 1. There is a left upper lobe pulmonary nodule measuring 13 x 9 x 11 mm best demonstrated on image 22 series 4 and image 42 series 7. Additional lesions measuring 14 x 12.2 mm image 36 series 4 and image 17 series 4 left lower lobe of the lung. These lesions were not present previously and is highly suspicious for neoplastic process.Highly suspicious nodule(s). Consider non-emergent PET/CT, or tissue sampling.(Reference: Kika). 2. Motion artifact does moderately limit the sensitivity of this examination. 3. Severe centrilobular emphysematous changes are present. 4. Atelectasis and interstitial infiltrates present within the right greater than left lower lobes of the lung. This may represent cardiogenic versus noncardiogenic edema. An acute inflammatory process and/or infectious process/pneumonia are not excluded. 5. Lymphadenopathy present at the pretracheal, precarinal, and bilateral peribronchial regions. 6. No evidence of acute pulmonary embolism. REFERENCES: Kika Ellington, et al. Guidelines for Management of Incidental Pulmonary Nodules Detected on CT Images: From the Fleischner Society 2017. Radiology. 2017;284(1):228-243. Dictated and Authenticated by: Ace Osei MD. Ordering:TATIANA Rios MD
--- NOTE | 2022-11-24 02:42 | NUR.NOTE ---
Nursing Note: Pt out of ER via EMS with [facility]. Report given to MICHELE Uriostegui-B.
[2022-11-24 02:45] VITALS: BP 116/57; PULSE 65; O2SAT 95
== END 2022-11-24 02:46 | disposition home or self-care (01) ==
PROVIDERS: Emergency Provider Student in an Organized Health Care Education/Training Program; PCP Student in an Organized Health Care Education/Training Program
DX: I48.20 Chronic atrial fibrillation, unspecified (principal); R91.1 Solitary pulmonary nodule; J44.9 Chronic obstructive pulmonary disease, unspecified; Z99.81 Dependence on supplemental oxygen; Z79.899 Other long term (current) drug therapy; R06.02 Shortness of breath
CPT/HCPCS: 71275; 80053; 93005; 96361; 96374; 99291; 80162; 83880; 84443; 84484; 85379; 85610; 85730; 93010; J3490

== ENCOUNTER 2022-11-25 20:09 | Inpatient (IN) | payer MEDICARE, MEDICAID, SELFPAY ==
--- NOTE | 2022-11-25 20:00 | RT.EKG_ITS ---
APPROVED REPORT Exam: Resting ECG Reason for Exam: difficulty breathing Patient Location: E HR:113 bpm ECG Measurements Heart Rate 113 AXIS MO 124 P 72 QRSd 82 QRS 75 QT 291 T 246 QTc 399 Conclusion Sinus tachycardia...rate> 99 Borderline repol abnormality, diffuse leads...ST dep, T flat/neg, ant/lat/inf. Sinus. Normal axis. Less than 1mm ST depression in anterolateral leads. No STEMI.
[2022-11-25 20:11] VITALS: PULSE 115; RESP 26; O2SAT 91
--- NOTE | 2022-11-25 20:15 | DI.CT_ITS ---
Exam(s) CT THORAX ABD/PEL CTA EXAM: CT THORAX ABD/PEL CTA CLINICAL HISTORY: chest and abd pain. TECHNIQUE: Imaging Protocol: Axial CT angiography was performed with multi-slice acquisition and m ulti-planar and/or 3D reconstructions. CONTRAST MATERIAL: Intravenous: Omnipaque 350 contrast volume:100 mL Oral: No COMPARISON: CT CT ABDOMEN PELVIS W from 09/19/[address] CHEST PE CTA from 11/24/2022 FINDINGS: CHEST: Tracheobronchial tree: Patent where visualized. Pulmonary parenchyma: Emphysematous changes are seen in the lungs. Bilateral areas of consolidation are seen in the lungs. The findings are most marked in the right lower lobe. These findings are new compared to the CT scan of the chest from 11/24/2022. Aspiration should be considered. Bronchiectat ic changes are seen in the lower lobes, right greater than left. Pulmonary Arteries: No evidence of filling defect to suggest pulmonary emboli. Mediastinum and Radha: Mildly enlarged mediastinal and right hilar lymph nodes are seen. These are li felicia reactive. The esophagus is unremarkable. Visualized thyroid: Unremarkable. Pleura: There is a small right pleural effusion. No left pleural effusion. No pneumothorax. Heart: The heart is not dilated. Mild coronary artery calcification is present. No pericardial effus ion. Aorta: Thoracic aorta non-dilated. Atherosclerosis. No evidence of dissection. Soft Tissues: Unremarkable. Bones: Within normal limits for the patient's age.There are old healed left rib fractures. ABDOMEN AND PELVIS: Abdomen: Celiac axis/mesenteric arteries: No evidence of occlusion or significant stenosis. Renal Arteries: No evidence of occlusion or significant stenosis. There is a single renal artery per fusing each kidney. Mild atherosclerosis. Aorta: No evidence of occlusion or significant stenosis. No aneurysm or dissection. Atherosclerosi s. Pelvis: Iliac Arteries: There is no evidence of occlusion. There is marked stenosis at the origin of the ri ght internal iliac artery. There is also marked stenosis seen in the left internal iliac artery. Th ere is atherosclerosis. Common Femoral Arteries: No evidence of occlusion or significant stenosis. ABDOMEN: Liver: Normal density. No measurable mass. Gallbladder and Biliary Tract: Cholelithiasis. No biliary ductal dilatation. Pancreas: Normal density, no abnormal calcifications or inflammatory process. Spleen: There are multiple splenic masses again seen which appears stable. Adrenals: No masses seen. Kidneys: Normal size, contour and axis. No radiodense stones or obstructive uropathy. No masses seen. Bowel: No obstruction or bowel wall thickening. There is no evidence of appendicitis. There is diver ticulosis of the colon, but no evidence of acute diverticulitis. There is a moderate amount of stool throughout the colon which may represent constipation. Peritoneal Cavity: No ascites, collection or mesenteric inflammatory response. No free air. Lymph Nodes: Within normal limits. Bones: Within normal limits for the patient's age. Soft Tissues: There is a small umbilical fat containing hernia. There are bilateral fat containing i nguinal hernias. PELVIS: Bladder: Symmetric distention, no gross wall thickening. Reproductive Organs: Unremarkable as visualized. Lymph Nodes: Within normal limits. Bones: Within normal limits for the patient's age. IMPRESSION: 1. No evidence of aortic aneurysm or dissection. 2. Atherosclerosis is present. There is marked narrowing of both the right and left internal iliac a rteries as described above. 3. Worsening infiltrate in the right lower lobe suspicious for pneumonia. Aspiration should be consi dered. 4. New pulmonary nodules. These were described on the examination from the day prior. Follow-up efren ging in 3-6 months is recommended. 5. Stable multiple splenic lesions. Metastatic disease cannot be excluded. Nonemergent PET or biops y is recommended. RADIATION DOSE DELIVERED: 1,190.75mGy.cm Total DLP DATA REPOSITORY: All CT scans at this facility are submitted to the National Radiology Data Registry (NRDR) Dose Index Registry (DIR) with the [employer] (ACR). RADIATION OPTIMIZATION: All CT scans at this facility use at least one of these dose optimization te chniques: automated exposure control; mA and/or kV adjustment per patient size (includes targeted exa ms where dose is matched to clinical indication); or iterative reconstruction.
[2022-11-25 20:16] VITALS: BP 129/80
[2022-11-25 20:40] LABS: Source Nasal/Nares
[2022-11-25 20:42] LABS: Lactate 1.2 mmol/L (0.6-1.4)
[2022-11-25 20:43] LABS: Abs Immature Grans 0.12 10^3/uL (0.0-0.06); Absolute Lymphocyte Count 1.55 10^3/uL (1.2-3.4); Absolute Neutrophil Count 21.16 10^3/uL (1.2-6.7); Basophils % 0.4; Eosinophils % 1.8; HCT 43.5 % (40.0-50.0); HGB 12.3 g/dL (13.5-17.5); Immature Grans % 0.5; Lymphocytes % 6.2; MCH 23.5 pg (27.0-33.0); MCHC 28.3 % (32.0-36.0); MCV 83 fL (80-95); MPV 9.1 fL (8.0-11.0); Monocytes % 6.4; Neutrophils % 84.7; Platelet Count 339 10^3/uL (130-400); RBC 5.24 10^6/uL (4.36-5.78); RDW 16.3 % (11.8-14.1); RDW-SD 49.1 fL; WBC 24.98 10^3/uL (4.4-10.8)
[2022-11-25 20:49] LABS: Absolute Eosinophil Count 0.45 10^3/uL (0.0-0.7)
[2022-11-25 21:12] LABS: Troponin I 70 ng/L (<or=60)
[2022-11-25 21:13] LABS: Anisocytosis 1+; Diff Comment Diff Reviewed; Hypochromasia 1+
[2022-11-25 21:16] LABS: ALT 20 U/L (16-63); AST 10 U/L (15-37); Albumin 3.9 g/dL (3.4-5.0); Alkaline Phosphatase 153 U/L (46-116); Anion Gap 1.5 mmol/L (3-11); BUN 14 mg/dL (7-18); Bilirubin, Total 0.3 mg/dL (0.2-1.0); CO2 37.5 mmol/L (21.0-32.0); CREATININE 0.8 mg/dL (0.70-1.30); Calcium 9.1 mg/dL (8.5-10.1); Chloride 100 mmol/L (98-107); Digoxin 0.48 ng/mL (0.90-2.00); Estimated GFR 97.61 (mL/min/1.73m2); Glucose 144 mg/dL (74-106); Lipase 17 U/L (16-77); Magnesium 1.8 mg/dL (1.8-2.4); Potassium 4.2 mmol/L (3.5-5.1); Sodium 139 mmol/L (136-145); Total Protein 7.9 g/dL (6.4-8.2)
[2022-11-25 21:25] LABS: COVID-19 PCR Negative (Negative)
[2022-11-25] MEDS: Normal Saline Flush 10 ML SYR IVP (21:46)
[2022-11-25] MEDS: Omnipaque 350 MG/ML 100 ML BTL IJ (21:48)
[2022-11-25] MEDS: Normal Saline - Diluent 50 ML VIAL IJ (21:48)
[2022-11-25] MEDS: Albuterol/Ipratropium 3 ML UPD VIAL (22:18)
[2022-11-25 22:34] LABS: Bilirubin Negative (Negative); Blood Trace-intact (Negative); Clarity Clear (Clear); Glucose Negative (Negative); Ketones Negative (Negative); Leukocyte Esterase Negative (Negative); Nitrite Negative (Negative); Urobilinogen 0.2 mg/dL (Up to 0.2)
--- NOTE | 2022-11-25 22:38 | DI.VRAD_ITS ---
PROCEDURE INFORMATION: Exam: CTA Chest With Contrast CTA Abdomen and Pelvis With Contrast Exam date and time: 11/25/2022 9:49 PM Age: 67 years old Clinical indication: Other: Chest and abd pain TECHNIQUE: Imaging protocol: Computed tomographic angiography of the chest with contrast. Exam focused on the arteries. Computed tomographic angiography of the abdomen and pelvis with contrast. Exam focused on the arteries. 3D rendering (Not supervised by radiologist): MIP and/or 3D reconstructed images were created by the technologist. Radiation optimization: All CT scans at this facility use at least one of these dose optimization techniques: automated exposure control; mA and/or kV adjustment per patient size (includes targeted exams where dose is matched to clinical indication); or iterative reconstruction. Contrast material: OMNI 350; Contrast volume: 100 ml; Contrast route: INTRAVENOUS (IV); COMPARISON: CT CHEST PE CTA 11/24/2022 12:02 AM FINDINGS: VASCULATURE: Pulmonary arteries: Normal. No pulmonary emboli. Aorta: Moderate diffuse mural thrombus and calcification noted in the aorta. No evidence of aortic aneurysm or dissection. Celiac trunk and mesenteric arteries: No occlusion or significant stenosis. Renal arteries: No occlusion or significant stenosis. Right iliac arteries: Diffuse mural thrombus produces mild narrowing of the right common iliac artery. There is severe stenosis in the proximal right internal iliac artery. Left iliac arteries: There is severe stenosis in the origin of the left internal iliac artery. Left iliac arteries otherwise appear widely patent. CHEST: Lungs: There has been significant interval worsening of right lower lobe consolidation. A few irregular subsolid nodular densities again noted scattered throughout the left lung, the largest measuring approximally 1.8 cm anteromedial left upper lobe. Pleural spaces: Unremarkable. No pneumothorax. No pleural effusion. Heart: Unremarkable. No cardiomegaly. No pericardial effusion. ABDOMEN AND PELVIS: Liver: No mass. Gallbladder and bile ducts: Gallbladder is mildly distended. Two small calcified gallstones are present in the gallbladder lumen. No gallbladder wall thickening or pericholecystic inflammation. Pancreas: Unremarkable. No mass. No ductal dilation. Spleen: Multiple low-density nodules and masses are noted throughout the spleen, the largest measuring 3.1 cm. These have increased in size compared to the prior study 09/19/2022 and appear new when compared to an earlier study from 2019. Adrenal glands: Unremarkable. No mass. Kidneys and ureters: Unremarkable. No solid mass. No hydronephrosis. Stomach and bowel: There is mild sigmoid diverticulosis. Bowel wall thickening or evidence of bowel obstruction. Appendix: No evidence of appendicitis. Intraperitoneal space: Unremarkable. No free air. No significant fluid collection. Urinary bladder: Unremarkable. No mass. Reproductive: Prostate gland is moderately enlarged, measuring 5.5 cm diameter. Lymph nodes: Unremarkable. No enlarged lymph nodes. Bones/joints: Moderate degenerative changes noted throughout the spine. No acute fracture. Soft tissues: Unremarkable. IMPRESSION: 1. Interval worsening of findings of right lower lobe pneumonia 2. Interval increase in size of multiple splenic lesions raising concern for metastatic malignancy. Recommend evaluation with non-emergent PET vs. MRI vs. biopsy. 3. Multiple subsolid pulmonary lesions noted primarily in the left lung. Recommend CT Chest at 3-6 months. Subsequent management based on the most suspicious nodule(s). (Reference: Kika) REFERENCES: Kika Ellington, et al. Guidelines for Management of Incidental Pulmonary Nodules Detected on CT Images: From the Fleischner Society 2017. Radiology. 2017;284(1):228-243. Dictated and Authenticated by: Marcos Donald MD. Ordering:EMELI Stoll MD
[2022-11-25 22:45] VITALS: BP 128/55; PULSE 101; RESP 22; O2SAT 88
[2022-11-25 22:49] LABS: Epithelial Cells Rare HPF (Negative); WBC 0-2 HPF (0-5)
[2022-11-25 22:50] LABS: Bacteria Rare HPF (Negative); C & S Indicated? No; Crystals Negative HPF (Negative); Mucus Negative (Negative)
[2022-11-25 23:15] VITALS: BP 149/68; PULSE 108; O2SAT 90
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
[2022-11-25] MEDS: Doxycycline Hyclate 100 MG CAP PO (23:23)
[2022-11-25] MEDS: cefTRIAXone 2 GM/50 ML BAG IVPB (23:24)
[2022-11-25 23:25] LABS: Troponin I 74 ng/L (<or=60)
[2022-11-25 23:32] VITALS: BP 128/63; PULSE 111; RESP 23; TEMP 36.8; O2SAT 90
--- NOTE | 2022-11-25 23:36 | NUR.NOTE ---
Nursing Note: pt states he is breathing at his normal, and that his spo2 at home are in the high 80s. the pt is currently on 4l mask, states he uses a c-pap at night and does not have his c-pap with him, and does not have anyone who could bring it tonight.
[2022-11-25 23:42] VITALS: TEMP 37.1
[2022-11-26] VITALS (99 sets, daily range): BP systolic 99–138; BP diastolic 53–108; PULSE 75–113; RESP 16–32; TEMP 36.8–37.4; O2SAT 84–97
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
[2022-11-26] MEDS: Acetaminophen 500 MG TAB PO (03:17)
[2022-11-26] MEDS: MORPHine 2 MG/ML SYR IVP (03:51)
[2022-11-26] MEDS: Normal Saline Flush 10 ML SYR IVP ×4 (03:51→21:15)
[2022-11-26] MEDS: Aspirin E.C. 325 MG TABEC PO (04:21)
[2022-11-26] MEDS: methylPREDNISolone SUCC 125 MG VIAL IVP (04:22)
[2022-11-26] MEDS: CEFEPIME 2 GM in Normal Saline 100 ML IVPB ×3 (05:15→21:13)
[2022-11-26 05:59] LABS: BE (Venous) 8 mmol/L (-2-3); HCO3 (Venous) 34 mmol/L (23-28); O2 Sat (Venous) 93 %; TCO2 (Venous) 31 mmol/L (24-29); pCO2 (Venous) 60 mmHg (41-51); pH (Venous) 7.36 (7.31-7.41); pO2 (Venous) 62 mmHg
[2022-11-26 07:12] LABS: HCT 39.5 % (40.0-50.0); HGB 11.5 g/dL (13.5-17.5); MCH 23.5 pg (27.0-33.0); MCHC 29.1 % (32.0-36.0); MCV 81 fL (80-95); MPV 9.3 fL (8.0-11.0); RBC 4.89 10^6/uL (4.36-5.78); RDW 16.5 % (11.8-14.1); RDW-SD 48.1 fL
[2022-11-26 07:16] LABS: WBC 36.82 10^3/uL (4.4-10.8)
[2022-11-26 07:20] LABS: Anion Gap 6.5 mmol/L (3-11); BUN 18 mg/dL (7-18); CO2 33.5 mmol/L (21.0-32.0); CREATININE 0.9 mg/dL (0.70-1.30); Calcium 8.8 mg/dL (8.5-10.1); Chloride 99 mmol/L (98-107); Estimated GFR 94.19 (mL/min/1.73m2); Glucose 136 mg/dL (74-106); Potassium 4.5 mmol/L (3.5-5.1); Sodium 139 mmol/L (136-145)
[2022-11-26 07:29] LABS: Troponin I 54 ng/L (<or=60)
[2022-11-26 07:35] LABS: Absolute Basophil Count 0.37 10^3/uL (0.0-0.2); Absolute Lymphocyte Count 0.74 10^3/uL (1.2-3.4); Absolute Monocyte Count 2.58 10^3/uL (0.1-0.8); Bands % 7
[2022-11-26 07:36] LABS: Basophilic Stippling Present; Diff Comment Manual Differential; Platelet Count 320 10^3/uL (130-400); Polychromasia Present
[2022-11-26 07:38] LABS: Absolute Neutrophil Count 33.14 10^3/uL (1.2-6.7)
[2022-11-26 08:19] LABS: Lab Add On Test DONE
[2022-11-26] MEDS: Tiotropium Bromide-Respimat 10 PUFF INH 2 PUFF IH (08:20)
[2022-11-26] MEDS: Budesonide/Formoterol 80/4.5 6.9 GM 60 PUFF INH IH ×2 (08:20→19:27)
[2022-11-26 08:48] LABS: Procalcitonin 1.7 ng/mL
[2022-11-26] MEDS: Digoxin 0.125 MG TAB PO (08:59)
[2022-11-26] MEDS: guaiFENesin 600 MG TABCR PO ×2 (08:59→21:18)
[2022-11-26] MEDS: dilTIAZem CD 120 MG CAPCR 240 MG PO ×2 (08:59→21:18)
[2022-11-26] MEDS: Roflumilast 500 MCG TAB PO (08:59)
[2022-11-26] MEDS: Furosemide 20 MG TAB PO (09:00)
[2022-11-26] MEDS: Omeprazole 20 MG CAPCR PO (09:00)
[2022-11-26] MEDS: Potassium Chloride 20 MEQ TABCR PO (09:00)
[2022-11-26] MEDS: predniSONE 20 MG TAB 40 MG PO (09:00)
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
[2022-11-26] MEDS: Enoxaparin 40 MG/0.4 ML SYR SC (10:11)
[2022-11-26] MEDS: DOXYCYCLINE 100 MG in Normal Saline 100 ML IVPB ×2 (10:12→22:09)
--- NOTE | 2022-11-26 18:20 | NUR.NOTE ---
181 patient has been transferred out of the [facility] & down graded to MS status & placed into room 214. Patient was connected to tele, oriented to , call bryan within reach & all questions & or concerns addresses, fluids provided. Will continue to monitor. Nursing Note:
[2022-11-26] MEDS: Atorvastatin 40 MG TAB 80 MG PO (21:18)
[2022-11-26 21:38] LABS: Legionella Ag Detection Urine Negative (Negative)
[2022-11-27] VITALS (15 sets, daily range): BP systolic 130–156; BP diastolic 73–82; PULSE 76–98; RESP 2–24; TEMP 36.3–36.7; O2SAT 92–96
[2022-11-27] MEDS: CEFEPIME 2 GM in Normal Saline 100 ML IVPB ×3 (05:54→21:57)
[2022-11-27 06:50] LABS: HCT 41.9 % (40.0-50.0); HGB 12.2 g/dL (13.5-17.5); MCH 23.7 pg (27.0-33.0); MCHC 29.1 % (32.0-36.0); MCV 81 fL (80-95); MPV 9.4 fL (8.0-11.0); Platelet Count 340 10^3/uL (130-400); RBC 5.15 10^6/uL (4.36-5.78); RDW 16.5 % (11.8-14.1); RDW-SD 48.9 fL
[2022-11-27 06:53] LABS: WBC 43.47 10^3/uL (4.4-10.8)
[2022-11-27 07:00] LABS: Anion Gap 2.2 mmol/L (3-11); BUN 28 mg/dL (7-18); CO2 33.8 mmol/L (21.0-32.0); CREATININE 0.9 mg/dL (0.70-1.30); Calcium 9.9 mg/dL (8.5-10.1); Chloride 101 mmol/L (98-107); Estimated GFR 94.19 (mL/min/1.73m2); Glucose 151 mg/dL (74-106); Potassium 4.3 mmol/L (3.5-5.1); Sodium 137 mmol/L (136-145)
[2022-11-27 07:30] LABS: Absolute Lymphocyte Count 0.87 10^3/uL (1.2-3.4); Absolute Monocyte Count 3.91 10^3/uL (0.1-0.8); Absolute Neutrophil Count 38.69 10^3/uL (1.2-6.7)
[2022-11-27 07:33] LABS: Diff Comment Manual Differential; RBC Morphology Normal
[2022-11-27] MEDS: Budesonide/Formoterol 80/4.5 6.9 GM 60 PUFF INH IH ×2 (07:44→19:51)
[2022-11-27] MEDS: Tiotropium Bromide-Respimat 10 PUFF INH 2 PUFF IH (07:45)
--- NOTE | 2022-11-27 07:51 | RESPIRATORY ---
Pt's own machine Trilogy AVAPS-AE AVAPS Rate: 5 VT 385ml Max press: 20, PS min: 5 / max: 15, EPAP min: 5 / max: 5 3L O2 bleed-in Breath Rate: Auto DME: O2 - [facility] DME: Trilogy - [facility] Face mask: Medium
[2022-11-27] MEDS: Digoxin 0.125 MG TAB PO (07:56)
[2022-11-27] MEDS: dilTIAZem CD 120 MG CAPCR 240 MG PO ×2 (07:57→19:49)
[2022-11-27] MEDS: predniSONE 20 MG TAB 40 MG PO (07:57)
[2022-11-27] MEDS: guaiFENesin 600 MG TABCR PO ×2 (07:57→19:50)
[2022-11-27] MEDS: Normal Saline Flush 10 ML SYR IVP (07:57)
[2022-11-27] MEDS: Furosemide 20 MG TAB PO (07:57)
[2022-11-27] MEDS: Potassium Chloride 20 MEQ TABCR PO (07:57)
[2022-11-27] MEDS: Omeprazole 20 MG CAPCR PO (07:57)
[2022-11-27] MEDS: Aspirin E.C. 81 MG TABEC PO (07:57)
[2022-11-27] MEDS: DOXYCYCLINE 100 MG in Normal Saline 100 ML IVPB ×2 (09:24→22:45)
[2022-11-27] MEDS: Enoxaparin 40 MG/0.4 ML SYR SC (09:25)
[2022-11-27] MEDS: Roflumilast 500 MCG TAB PO (09:25)
--- NOTE | 2022-11-27 10:42 | PDOC.CMPRO ---
Date of service: 11/27/22 Time of Service: 10:42 Care Management Progress Note Progress Note Text Progress Note Text: S/O: Dave was resting when CM attempted to meet with him. He met with Palliative care today, who stated that Dave is interested in meeting with Oncology to determine what his treatment options are for his metastatic cancer. Per report, his WBC continues to increase, and was 43.47 today. Per MD, this may be due to the IV steroids he was taking, or due to his metastatic disease. He is on IV abx currently. CM will continue to follow. A: Dave is a 67 year old male admitted to [facility] on 11/25/22 for pneumonia. P: ?Anticipate Dave will be discharged home when medically cleared by provider with new orders for [facility] RN, home oxygen ([facility]), MOW, and [facility] - Highest needs.? He will follow up with his PCP and discharge plan of care as directed.? Transport home will either be via private vehicle with his son or [facility] arranged by CM. CM will continue to support patient and discharge planning needs.
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
--- NOTE | 2022-11-27 15:27 | W.PM.PROGNOT ---
Date of Service Date of service: 11/27/22 Time of Service: 15:27 Assessment and Plan Assessment and plan (1) Community acquired pneumonia: Status: Acute Assessment and plan: Cont cefepime and doxy. H/O pseudomonas. Initially given IV steroids; changes to po prednisone 40mg daily WBC count has increased; a component of this may be steroid related. Cont to monitor. Continue bronchodilators (2) Chronic respiratory failure with hypoxia: Status: Acute Assessment and plan: He has a Trilogy home. His oxygenation is now back to baseline.. There is a note of history of CO2 retention so will keep O2 sats 88-93%. Will consult pulmonary medicine. (3) Elevated troponin: Status: Acute Assessment and plan: 70 > 74 > 54. EKG not c/w STEMI but there are new borderline depressions. This is likely strain from lung disease, but he is not on any antiplatelet or statin; these were initiated upon admission. (4) Lesion of spleen: Status: Acute Assessment and plan: CT/chest/abd/pelvis this admission: 1. No evidence of aortic aneurysm or dissection. 2. Atherosclerosis is present.? There is marked narrowing of both the right and left internal iliac arteries as described above. 3. Worsening infiltrate in the right lower lobe suspicious for pneumonia.? Aspiration should be considered. 4. New pulmonary nodules.? These were described on the examination from the day prior.? Follow-up imaging in 3-6 months is recommended. 5. Stable multiple splenic lesions.? Metastatic disease cannot be excluded.? Nonemergent PET or biopsy is recommended.? Pulmonary nodule (Acute) PET says INFLAMM, not malignant, 10/2022. ik per 02/[address]: 2 tiny stable nodules posterior right lung base..Lung mass (Acute) NEG per PET, 10/2022, ik? New findin mm ovoid density in the inferior aspect of the right upper lobe. No focal consolidating infiltrates are present. .. per Chest CT, 2' incidental findings on Abd CT (abd pain), 09/25/22 ([facility]).. [ ]? PET scan (probably primary metastatic lesion).. (5) Paroxysmal atrial fibrillation: Status: Chronic Assessment and plan: Continue diltiazem and digoxin. Digoxin levels have been chronically low but doses have not been adjusted by primary team He is also not anticoagulated despite his stroke risk. (6) End stage COPD: Status: Chronic Assessment and plan: see respiratory failure above (7) DVT prophylaxis: Status: Acute Assessment and plan: LMWH for now (8) Discharge planning issues: Status: Acute Assessment and plan: Dave is a complex patient and has regular palliative and home visits. Palliative consulting. (9) Myocardial infarction: Assessment and plan: Now on ASA and statin. Subjective Subjective Patient reports: no new complaints, feels better, tolerating a regular diet and afebrile; denies nausea, vomiting or shortness of breath Exam Narrative Exam Narrative: GEN: Alert and oriented, pleasant and cooperative. Speech is difficult to understand / baseline. Sitting in recliner. LUNGS: Diminished breath sounds throughout. Soft crackles noted. CV: RRR with no murmurs ABD: +BS, soft, non distended EXT: no cyanosis, clubbing, or edema MSK: No joint redness or swelling, scars noted on legs NEURO: Normal movement of 4 extremities. Garbled speech SKIN: No rashes or open wounds. PSYCH: normal mood and affect, not displaying paranoid behavior Objective Last Vital Signs Temp 36.4 C L 11/27/22 11:29 Pulse 98 H 11/27/22 11:29 Resp 19 11/27/22 11:29 BP 156/75 H 11/27/22 11:29 Pulse Ox 92 11/27/22 11:29 Laboratory Results - last 24 hr 11/26/22 11/27/22 11/27/22 07:50 06:25 06:25 WBC 43.47 H* RBC 5.15 Hgb 12.2 L Hct 41.9 MCV 81 MCH 23.7 L MCHC 29.1 L RDW 16.5 H Plt Count 340 MPV 9.4 Immature Gran % 0.0 Neutrophils % 89.0 Lymphocytes % 2.0 Monocytes % 9.0 Eosinophils % 0.0 Basophils % 0.0 Nucleated RBC % 0.0 Absolute Neutrophils 38.69 H Absolute Lymphocytes 0.87 L Absolute Monocytes 3.91 H Absolute Eosinophils 0.00 Absolute Basophils 0.00 RBC Morphology Normal Sodium 137 Potassium 4.3 Chloride 101 Carbon Dioxide 33.8 H Anion Gap 2.2 L BUN 28 H Creatinine 0.9 Est GFR (CKD-EPI 2020) 94.19 Glucose 151 H Calcium 9.9 Urine Legionella Ag Negative Time Spent with Patient Time Spent with Patient: 25-34 minutes Time was spent: preparing to see the patient(eg.review tests), obtaining and/or reviewing separately otained hiistory, ordering medications,tests, procedures, referring, communicating with other health skin care specialist, indepentently interpreting results and care coordination
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
[2022-11-27] MEDS: Atorvastatin 40 MG TAB 80 MG PO (19:50)
[2022-11-27] MEDS: Ipratropium 0.5 MG/2.5 ML UPD VIAL 0.25 MG IH (20:15)
[2022-11-27] MEDS: Levalbuterol 1.25 MG/3 ML UPD VIAL UPD (20:15)
[2022-11-28] VITALS (12 sets, daily range): BP systolic 115–165; BP diastolic 70–84; PULSE 76–103; RESP 2–26; TEMP 36–37.2; O2SAT 90–95
[2022-11-28] MEDS: CEFEPIME 2 GM in Normal Saline 100 ML IVPB ×3 (06:10→22:53)
[2022-11-28 06:47] LABS: HCT 35.5 % (40.0-50.0); HGB 10.5 g/dL (13.5-17.5); MCH 23.6 pg (27.0-33.0); MCHC 29.6 % (32.0-36.0); MCV 80 fL (80-95); MPV 9.5 fL (8.0-11.0); Platelet Count 317 10^3/uL (130-400); RBC 4.44 10^6/uL (4.36-5.78); RDW 16.7 % (11.8-14.1); RDW-SD 48.3 fL
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
[2022-11-28 07:15] LABS: Absolute Lymphocyte Count 3.24 10^3/uL (1.2-3.4); Absolute Monocyte Count 0.75 10^3/uL (0.1-0.8); Absolute Neutrophil Count 20.92 10^3/uL (1.2-6.7); Bands % 1; Diff Comment Manual Differential; RBC Morphology Normal
[2022-11-28] MEDS: Furosemide 20 MG TAB PO (07:40)
[2022-11-28] MEDS: Omeprazole 20 MG CAPCR PO (07:40)
[2022-11-28] MEDS: Roflumilast 500 MCG TAB PO (07:41)
[2022-11-28] MEDS: Digoxin 0.125 MG TAB PO (07:41)
[2022-11-28] MEDS: Potassium Chloride 20 MEQ TABCR PO (07:41)
[2022-11-28] MEDS: Aspirin E.C. 81 MG TABEC PO (07:41)
[2022-11-28] MEDS: predniSONE 20 MG TAB 40 MG PO (07:41)
[2022-11-28] MEDS: guaiFENesin 600 MG TABCR PO ×2 (07:41→20:11)
[2022-11-28] MEDS: dilTIAZem CD 120 MG CAPCR 240 MG PO ×2 (07:41→20:11)
[2022-11-28] MEDS: Budesonide/Formoterol 80/4.5 6.9 GM 60 PUFF INH IH ×2 (07:44→20:10)
[2022-11-28] MEDS: Tiotropium Bromide-Respimat 10 PUFF INH 2 PUFF IH (07:44)
[2022-11-28] MEDS: Levalbuterol 1.25 MG/3 ML UPD VIAL UPD ×3 (07:45→21:41)
[2022-11-28] MEDS: Ipratropium 0.5 MG/2.5 ML UPD VIAL 0.25 MG IH ×3 (07:45→21:41)
--- NOTE | 2022-11-28 08:09 | DI.RAD_ITS ---
Exam(s) XR CHEST 2V PA LATERAL EXAM: XR CHEST 2V PA LATERAL CLINICAL HISTORY: non resolving pneumonia TECHNIQUE: 2D digital imaging was performed of the chest. Three images were obtained. PA and later al views were obtained. COMPARISON: CR XR CHEST 2V PA LATERAL from 09/18/2022 CR,XR XR PORTABLE CHEST AP from 10/09/[address] THORAX ABD/PEL CTA from 11/25/2022 FINDINGS: MEDIASTINUM: Normal. HEART: Normal. PULMONARY VASCULATURE: Normal. LUNGS: Compared to the chest x-ray from 10/09/2022 there is an infiltrate seen in the right lower lobe. The lungs are hyperinflated consistent with underlying COPD. The left lung up as a similar appeara nce compared to the prior x-ray. No new infiltrates are seen on the left. PLEURAL SPACE: No pleural effusion or pneumothorax. BONE:Within normal limits for the patient's age. OTHER FINDINGS:Normal. IMPRESSION: New right lower lobe infiltrate compared to the chest x-ray from 10/09/2022. These findings in the devon g are present on the recent CT scan of the chest abdomen and pelvis from 11/25/2022. DATA REPOSITORY: RADIATION DOSE DELIVERED:
[2022-11-28] MEDS: Enoxaparin 40 MG/0.4 ML SYR SC (10:30)
[2022-11-28] MEDS: DOXYCYCLINE 100 MG in Normal Saline 100 ML IVPB ×2 (10:30→21:40)
[2022-11-28] MEDS: Normal Saline Flush 10 ML SYR IVP ×5 (10:33→22:52)
--- NOTE | 2022-11-28 11:02 | PGE_ITS ---
Date of Service Date of service: 11/28/22 Time of Service: 11:02 Assessment and Plan Assessment and plan (1) Community acquired pneumonia: Status: Acute Assessment and plan: Cefepime and doxy day 3 in setting of H/O pseudomonas, continue prednisone 40mg daily WBC count trending down, thought to be steroid related. Continue bronchodilators (2) Chronic respiratory failure with hypoxia: Status: Chronic Assessment and plan: He has a Trilogy home. His oxygenation is now back to baseline.. There is a note of history of CO2 retention so will keep O2 sats 88-93%. pulmonary medicine following, see note. (3) Myocardial infarction: Assessment and plan: Now on ASA and statin. (4) Elevated troponin: Status: Resolved Assessment and plan: 70 > 74 > 54. EKG not c/w STEMI but there are new borderline depressions. This is likely strain from lung disease, but he is not on any antiplatelet or statin; these were initiated upon admission. (5) Lesion of spleen: Status: Acute Assessment and plan: CT/chest/abd/pelvis this admission: 1. No evidence of aortic aneurysm or dissection. 2. Atherosclerosis is present.? There is marked narrowing of both the right and left internal iliac arteries as described above. 3. Worsening infiltrate in the right lower lobe suspicious for pneumonia.? Aspiration should be considered. 4. New pulmonary nodules.? These were described on the examination from the day prior.? Follow-up imaging in 3-6 months is recommended. 5. Stable multiple splenic lesions.? Metastatic disease cannot be excluded.? Nonemergent PET or biopsy is recommended.? Pulmonary nodule (Acute) PET says INFLAMM, not malignant, 10/2022. ik per 02/[address]: 2 tiny stable nodules posterior right lung base..Lung mass (Acute) NEG per PET, 10/2022, ik? New findin mm ovoid density in the inferior aspect of the right upper lobe. No focal consolidating infiltrates are present. .. per Chest CT, 2' incidental findings on Abd CT (abd pain), 09/25/22 ([facility]).. [ ]? PET scan (probably primary metastatic lesion).. (6) Paroxysmal atrial fibrillation: Status: Chronic Assessment and plan: Continue diltiazem and digoxin. Digoxin levels have been chronically low but doses have not been adjusted by primary team He is also not anticoagulated despite his stroke risk. (7) End stage COPD: Status: Chronic Assessment and plan: see respiratory failure above (8) DVT prophylaxis: Status: Acute Assessment and plan: LMWH for now (9) Discharge planning issues: Status: Acute Assessment and plan: Dave is a complex patient and has regular palliative and home visits. Palliative consulting. discussed with DR Sullivan Subjective Subjective Patient reports: no new complaints, feels better, tolerating liquids well, tolerating a regular diet, shortness of breath and afebrile Interval history since last seen: ambulating in room, shortness of breath with activity slowly improving Exam Const General: cooperative and no acute distress Orientation: alert, awake and oriented x3 Limitations: mental status not altered Neck Neck: normal visual inspection, full ROM and supple Chest Chest: normal inspection of the chest Resp Effort & Inspection: normal respiratory effort Auscultation: wheezes expiratory wheezes and scattered wheezes Cardio Jugular venous pressure: no JVD Rate: regular rate Rhythm: regular rhythm Skin General skin exam: no rashes or lesions noted Neuro General: patient alert, patient awake, patient oriented x3, tone normal and moves all extremities Psych Mental Status: mental status grossly normal Mood: congruent mood Affect: normal affect Objective Last Vital Signs Temp 36.4 C L 11/28/22 07:25 Pulse 89 11/28/22 07:45 Resp 22 11/28/22 07:45 BP 159/84 H 11/28/22 07:25 Pulse Ox 90 L 11/28/22 07:48 Laboratory Results - last 24 hr 11/28/22 06:05 WBC 24.90 H RBC 4.44 Hgb 10.5 L Hct 35.5 L MCV 80 MCH 23.6 L MCHC 29.6 L RDW 16.7 H Plt Count 317 MPV 9.5 Immature Gran % See Differential Neutrophils % 83.0 Band Neutrophils % 1 Lymphocytes % 13.0 Monocytes % 3.0 Eosinophils % 0.0 Basophils % 0.0 Nucleated RBC % 0.0 Absolute Neutrophils 20.92 H Absolute Lymphocytes 3.24 Absolute Monocytes 0.75 Absolute Eosinophils 0.00 Absolute Basophils 0.00 RBC Morphology Normal Time Spent with Patient Time Spent with Patient: 25-34 minutes Time was spent: preparing to see the patient(eg.review tests), obtaining and/or reviewing separately otained hiistory, ordering medications,tests, procedures, referring, communicating with other health critical care unit nurse, indepentently interpreting results and counseling the patient
--- NOTE | 2022-11-28 12:15 | CMPROGNOTE_ITS ---
Date of service: 11/28/22 Time of Service: 12:15 Care Management Progress Note Progress Note Text Progress Note Text: S/O: Dave was sitting up in bed when CM met with him. He was wearing his BiPAP, therefore it was difficult to communicate, but he stated that he is doing alright today. Per report, his WBC count is trending down, and continues to be closely monitored. Dave stated that he is hoping to return home soon. CM will order new HH RN, PT once he is medically cleared for discharge. CM will continue to follow. A: Dave is a 67 year old male admitted to [facility] on 11/25/22 for pneumonia. P: ?Anticipate Dave will be discharged home when medically cleared by provider with new orders for [facility] RN, home oxygen ([facility]), MOW, and CFC - Highest needs.? He will follow up with his PCP and discharge plan of care as directed.? Transport home will either be via private vehicle with his son or RCT arranged by CM. CM will continue to support patient and discharge planning needs.
--- NOTE | 2022-11-28 15:00 | RESPIRATORY ---
RT Assessment Start: 11/28/22 09:01 Freq: Status: Active Protocol: Document 11/28/22 14:52 (Rec: 11/28/22 15:00 [id number]) RT Assessment Pulmonary History Pulmonary History COPD Smoking History Smoking/Tobacco Use Status Former Tobacco Use Tobacco: How many years used 40 Quit Date 11/04/12 Tobacco Type cigarettes,cigars Packs per Day 3 Cigarettes per Day 30 Years smoked 40 Smoking packs per day 3 OXYGEN HISTORY: Supplemental O2 At Rest 3 With Exertion 4 Trilogy/AVAPS Settings vt 385, ps max-15/min 5, RR 5, max P 20, Can use home machine Yes DME/Compliance DME Prompt Care-Trilogy, Scotty- oxygen Compliance yes Current Respiratory Symptoms Current Respiratory Symptoms Sputum production Respiratory Breath Sounds Breath Sounds Faint wheezing or rhonci, decreased sounds throughout Response Mild response,subjective improvement Pulse Rate >100 Respiratory Rate 18-25 Shortness of Breath None Respiratory Therapy Score Total 5 Assessment and Plan RT Treatment Protocol Bronchodilator Aerosol Therapy Protocol,Bronchial Hygiene Therapy Protocol Note Patient not very mobile at baseline. Currently uses HHN at home.
[2022-11-28 15:07] LABS: Streptococcus Pneumoniae Ag, U Negative (Negative)
[2022-11-28] MEDS: Atorvastatin 40 MG TAB 80 MG PO (20:11)
[2022-11-29] VITALS (13 sets, daily range): BP systolic 119–160; BP diastolic 69–88; PULSE 89–103; RESP 2–26; TEMP 35.9–37.4; O2SAT 90–93
[2022-11-29] MEDS: Normal Saline Flush 10 ML SYR IVP ×4 (05:37→13:28)
[2022-11-29] MEDS: CEFEPIME 2 GM in Normal Saline 100 ML IVPB (05:38)
[2022-11-29 06:23] LABS: Abs Immature Grans 0.16 10^3/uL (0.0-0.06); Absolute Eosinophil Count 0.08 10^3/uL (0.0-0.7); Absolute Lymphocyte Count 3.58 10^3/uL (1.2-3.4); Absolute Monocyte Count 1.33 10^3/uL (0.1-0.8); Basophils % 0.1; Eosinophils % 0.4; HCT 37.8 % (40.0-50.0); HGB 11.2 g/dL (13.5-17.5); Immature Grans % 0.8; Lymphocytes % 17.7; MCH 23.6 pg (27.0-33.0); MCHC 29.6 % (32.0-36.0); MCV 80 fL (80-95); MPV 9.5 fL (8.0-11.0); Monocytes % 6.6; Neutrophils % 74.4; Nucleated RBC 0.1 % (0.0-0.3); Platelet Count 347 10^3/uL (130-400); RBC 4.74 10^6/uL (4.36-5.78); RDW 16.9 % (11.8-14.1); RDW-SD 49.1 fL
[2022-11-29 06:31] LABS: Absolute Basophil Count 0.02 10^3/uL (0.0-0.2); Absolute Neutrophil Count 15.03 10^3/uL (1.2-6.7)
[2022-11-29 06:56] LABS: Anion Gap 3.6 mmol/L (3-11); BUN 28 mg/dL (7-18); CO2 35.4 mmol/L (21.0-32.0); CREATININE 0.8 mg/dL (0.70-1.30); Calcium 9.2 mg/dL (8.5-10.1); Chloride 103 mmol/L (98-107); Estimated GFR 97.61 (mL/min/1.73m2); Glucose 94 mg/dL (74-106); Magnesium 1.7 mg/dL (1.8-2.4); Potassium 3.7 mmol/L (3.5-5.1); Sodium 142 mmol/L (136-145)
--- NOTE | 2022-11-29 07:07 | W.PULMPROG ---
Assessment and Plan Assessment and plan (1) Community acquired pneumonia: Status: Acute (2) Chronic respiratory failure with hypoxia: Status: Acute (3) End stage COPD: Status: Chronic (4) Lesion of spleen: Status: Acute Assessment and plan: This is a 67 yo with end stage COPD, waxing and waning pulmonary nodules and spleen lesions admitted for pneumonia. I will rule out fungal infection as well as AFB infections, particularly given the splenic lesions (which were not PET avid). I do not think the newer pulmonary lesions, nor the splenic lesions are malignant, given the recent PET and the 'newness' of the pulmonary nodules. I think airway clearance is paramount for him. He has a VibraPEP and IS in the room. I do not think he is in COPD exacerbation as his current respiratory status reflects him baseline status closely. Pneumonia - agree with cefepime and doxy - can discharge on Levaquin (total 7 day antibiotic course) - fungitell, urine antigens for histo and blasto, AFB sputum culture, aspergillus antigen pending - peripheral flow cytometry pending - on prednisone - 40mg for 5 days will be sufficient COPD - on home Symbicort and Spiriva - schedule nebs to q4h (this is what he does at home) - roflumilast General Date Of Service Date of service: 11/29/22 Time of Service: 07:07 Reason for Consult: Non-resolving Pneumonia Subjective Note Note: Dave is able to cough out more sputum with the nebs standing. He is anxious to go home but does acknowledge that his oxygen does drop still when he moves around (he is using a portable pulse ox to check himself). Exam Narrative Exam Narrative: Gen:?NAD, normal respiratory effort, well-nourished HENT:?PERRL, nasal turbinates normal without erythema or inflammation, moist oral? mucosa, Mallampati 2, No LAD or JVD Chest:?No respiratory distress, normal appearance of chest, bibasilar crackles, R>L Heart:?regular rate and rhythym, no murmurs, rubs or gallops Abdomen:?Non-distended, soft, non tender Extremities:?No clubbing, edema, cyanosis, rashes Neuro:?AAOx3 , non focal Psych:?cooperative, appropriate mental affect Objective Last Vital Signs Temp 36.8 C 11/28/22 23:25 Pulse 82 11/28/22 23:25 Resp 26 H 11/28/22 23:25 BP 116/82 11/28/22 23:25 Pulse Ox 94 11/28/22 23:25 Laboratory Results - last 24 hr 11/26/22 11/28/22 11/29/22 07:50 06:05 06:09 WBC 24.90 H RBC 4.44 Hgb 10.5 L Hct 35.5 L MCV 80 MCH 23.6 L MCHC 29.6 L RDW 16.7 H Plt Count 317 MPV 9.5 Immature Gran % See Differential Neutrophils % 83.0 Band Neutrophils % 1 Lymphocytes % 13.0 Monocytes % 3.0 Eosinophils % 0.0 Basophils % 0.0 Nucleated RBC % 0.0 Absolute Neutrophils 20.92 H Absolute Lymphocytes 3.24 Absolute Monocytes 0.75 Absolute Eosinophils 0.00 Absolute Basophils 0.00 RBC Morphology Normal Sodium 142 Potassium 3.7 Chloride 103 Carbon Dioxide 35.4 H Anion Gap 3.6 BUN 28 H Creatinine 0.8 Est GFR (CKD-EPI 2020) 97.61 Glucose 94 Calcium 9.2 Magnesium 1.7 L Ur Strep pneumoniae Ag Negative 11/29/22 06:09 WBC 20.20 H RBC 4.74 Hgb 11.2 L Hct 37.8 L MCV 80 MCH 23.6 L MCHC 29.6 L RDW 16.9 H Plt Count 347 MPV 9.5 Immature Gran % 0.8 Neutrophils % 74.4 Band Neutrophils % Lymphocytes % 17.7 Monocytes % 6.6 Eosinophils % 0.4 Basophils % 0.1 Nucleated RBC % 0.1 Absolute Neutrophils 15.03 H Absolute Lymphocytes 3.58 H Absolute Monocytes 1.33 H Absolute Eosinophils 0.08 Absolute Basophils 0.02 RBC Morphology Sodium Potassium Chloride Carbon Dioxide Anion Gap BUN Creatinine Est GFR (CKD-EPI 2020) Glucose Calcium Magnesium Ur Strep pneumoniae Ag Results Medications Medications: Active Medications Generic Name Dose Route Start Last Admin Trade Name Freq PRN Reason Stop Dose Admin Acetaminophen 500 mg 11/26/22 02:22 11/26/22 03:17 Acetaminophen 500 Mg Tab PO 500 mg Q6H PRN PRN Administration Aspirin 81 mg 11/27/22 08:30 11/28/22 07:41 Aspirin E.C. 81 Mg Tabec PO 81 mg DAILY BRIGHT Administration Atorvastatin Calcium 80 mg 11/26/22 20:00 11/28/22 20:11 Atorvastatin 40 Mg Tab PO 80 mg QPM BRIGHT Administration Budesonide/Formoterol Fumarate 2 puff 11/26/22 08:30 11/28/22 20:10 Budesonide/Formoterol 80/4.5 6.9 Gm 60 Puff Inh IH 2 puffs BID [facility] Administration Device 1 each 11/26/22 03:00 Inhaler, Assist Device DIRECTED [facility] Digoxin 0.125 mg 11/26/22 08:30 11/28/22 07:41 Digoxin 0.125 Mg Tab PO 0.125 mg DAILY BRIGHT Administration Diltiazem HCl 240 mg 11/26/22 08:30 11/28/22 20:11 Diltiazem Cd 120 Mg Capcr PO 240 mg BID [facility] Administration Dimethicone/Zinc Oxide 0 gm 11/26/22 02:10 Simón Protect Cream 142 Gm Tube TP PRN PRN Enoxaparin Sodium 40 mg 11/26/22 10:00 11/28/22 10:30 Enoxaparin 40 Mg/0.4 Ml Syr SC 40 mg Q24H [facility] Administration Furosemide 20 mg 11/26/22 08:30 11/28/22 07:40 Furosemide 20 Mg Tab PO 20 mg DAILY [facility] Administration Guaifenesin 600 mg 11/26/22 08:30 11/28/22 20:11 Guaifenesin 600 Mg Tabcr PO 600 mg BID [facility] Administration Hydrocortisone 0 gm 11/26/22 02:22 Hydrocortisone 2.5% Cr 30 Gm Tube TP TID PRN PRN pain, inflammation, skin irritation Doxycycline Hyclate 100 mg/ 100 mls @ 100 mls/hr 11/26/22 10:00 11/28/22 22:40 Sodium Chloride IVPB Infused Q12H [facility] Infusion Cefepime HCl 2 gm/ Sodium 100 mls @ 200 mls/hr 11/26/22 14:00 11/29/22 06:54 Chloride IVPB Infused Q8H [facility] Infusion Ipratropium Hollis 0.25 mg 11/28/22 10:00 11/29/22 04:43 Ipratropium 0.5 Mg/2.5 Ml Upd Vial IH Not Given Q4H [facility] Levalbuterol HCl 1.25 mg 11/28/22 10:00 11/29/22 04:43 Levalbuterol 1.25 Mg/3 Ml Upd Vial UPD Not Given Q4H [facility] Morphine Sulfate 2 mg 11/26/22 03:37 11/26/22 03:51 Morphine 2 Mg/Ml Syr IVP 2 mg Q3H PRN PRN Administration Omeprazole 20 mg 11/26/22 07:30 11/28/22 07:40 Omeprazole 20 Mg Capcr PO 20 mg 0730 [facility] Administration Pt's Own 0 each 11/26/22 22:00 11/28/22 21:43 Benzethonium TP Not Given Chloride [Bedside- BID@[id number],2200 [facility] Care Perineal] 0.1% Topical Cleanser Potassium Chloride 20 meq 11/26/22 08:30 11/28/22 07:41 Potassium Chloride 20 Meq Tabcr PO 20 meq DAILY [facility] Administration Prednisone 40 mg 11/26/22 08:30 11/28/22 07:41 Prednisone 20 Mg Tab PO 40 mg DAILY [facility] Administration Roflumilast 500 mcg 11/26/22 08:30 11/28/22 07:41 Roflumilast 500 Mcg Tab PO 500 mcg DAILY [facility] Administration Sodium Chloride 0 ml 11/25/22 21:46 11/29/22 05:37 Normal Saline Flush 10 Ml Syr IVP 10 ml PRN PRN Administration Tiotropium Hollis 2 puff 11/26/22 08:30 11/28/22 07:44 Tiotropium Hollis-Respimat 10 Puff Inh IH 2 inh DAILY [facility] Administration Allergies albuterol Adverse Reaction (Intermediate, Verified 11/23/22 20:39) SVT/rapid heart rate citalopram [From Celexa] Adverse Reaction (Verified 11/23/22 20:39) worsening anxiety/depression terazosin Adverse Reaction (Verified 11/23/22 20:39) Dizziness/Lightheade lobster Allergy (Uncoded 11/23/22 20:39) Dizziness/Lightheade Labs 11/29/22 06:09 11/29/22 06:09 Labs: 11/25/22 23:11 Blood Blood Culture - Preliminary NO GROWTH 72 HOURS 11/25/22 22:55 Blood Blood Culture - Preliminary NO GROWTH 72 HOURS 11/26/22 03:08 Sputum Sputum Culture - Preliminary Normal Priya 11/26/22 03:08 Sputum Gram Stain - Final 11/26/22 05:40 Blood Blood Culture - Preliminary NO GROWTH 48 HOURS 11/26/22 05:50 Blood Blood Culture - Preliminary NO GROWTH 48 HOURS 11/26/22 12:30 Nose MRSA Screen - Final Laboratory Tests Range/Units 11/25/22 11/25/22 11/25/22 20:32 20:32 20:32 WBC (4.4-10.8) 10^3/uL RBC (4.36-5.78) 10^6/uL Hgb (13.5-17.5) g/dL Hct (40.0-50.0) % MCV (80-95) fL MCH (27.0-33.0) pg MCHC (32.0-36.0) % RDW (11.8-14.1) % Plt Count (130-400) 10^3/uL MPV (8.0-11.0) fL Immature Gran % Neutrophils % Band Neutrophils % Lymphocytes % Monocytes % Eosinophils % Basophils % Nucleated RBC % (0.0-0.3) % Absolute Neutrophils (1.2-6.7) 10^3/uL Absolute Lymphocytes (1.2-3.4) 10^3/uL Absolute Monocytes (0.1-0.8) 10^3/uL Absolute Eosinophils (0.0-0.7) 10^3/uL Absolute Basophils (0.0-0.2) 10^3/uL RBC Morphology Polychromasia Hypochromasia Basophilic Stippling Anisocytosis VBG pH (7.31-7.41) VBG pCO2 (41-51) mmHg VBG pO2 mmHg VBG HCO3 (23-28) mmol/L VBG Total CO2 (24-29) mmol/L VBG O2 Saturation % VBG Base Excess (-2-3) mmol/L VBG Lactate (0.6-1.4) mmol/L 1.2 Sodium (136-145) mmol/L 139 Potassium (3.5-5.1) mmol/L 4.2 Chloride (98-107) mmol/L 100 Carbon Dioxide (21.0-32.0) mmol/L 37.5 H Anion Gap (3-11) mmol/L 1.5 L BUN (7-18) mg/dL 14 Creatinine (0.70-1.30) mg/dL 0.8 Est GFR (CKD-EPI 2020) (mL/min/1.73m2) 97.61 Glucose (74-106) mg/dL 144 H Calcium (8.5-10.1) mg/dL 9.1 Magnesium (1.8-2.4) mg/dL 1.8 Total Bilirubin (0.2-1.0) mg/dL 0.3 AST (15-37) U/L 10 L ALT (16-63) U/L 20 Alkaline Phosphatase (46-116) U/L 153 H Troponin I (<or=60) ng/L Total Protein (6.4-8.2) g/dL 7.9 Albumin (3.4-5.0) g/dL 3.9 Lipase (16-77) U/L 17 Procalcitonin ng/mL Urine Color (Yellow) Urine Clarity (Clear) Urine pH (5-8) Ur Specific [place] (1.005-1.025) Urine Protein (Negative) mg/dL Urine Ketones (Negative) mg/dL Urine Blood (Negative) Urine Nitrite (Negative) Urine Bilirubin (Negative) Urine Urobilinogen (Up to 0.2) mg/dL Ur Leukocyte Esterase (Negative) Urine RBC (0-2) HPF Urine WBC (0-5) HPF Ur Epithelial Cells (Negative) HPF Urine Crystals (Negative) HPF Urine Bacteria (Negative) HPF Urine Mucus (Negative) Ur Culture Indicated? Urine Glucose (Negative) mg/dL Digoxin (0.90-2.00) ng/mL 0.48 L COVID-19 Source Nasal/Nares SARS-CoV-2 (PCR) (Negative) Negative Urine Legionella Ag (Negative) Ur Strep pneumoniae Ag (Negative) Add-On Test Request Range/Units 11/25/22 11/25/22 11/25/22 20:32 20:32 22:25 WBC (4.4-10.8) 10^3/uL 24.98 H RBC (4.36-5.78) 10^6/uL 5.24 Hgb (13.5-17.5) g/dL 12.3 L Hct (40.0-50.0) % 43.5 MCV (80-95) fL 83 MCH (27.0-33.0) pg 23.5 L MCHC (32.0-36.0) % 28.3 L RDW (11.8-14.1) % 16.3 H Plt Count (130-400) 10^3/uL 339 MPV (8.0-11.0) fL 9.1 Immature Gran % 0.5 Neutrophils % 84.7 Band Neutrophils % Lymphocytes % 6.2 Monocytes % 6.4 Eosinophils % 1.8 Basophils % 0.4 Nucleated RBC % (0.0-0.3) % 0.0 Absolute Neutrophils (1.2-6.7) 10^3/uL 21.16 H Absolute Lymphocytes (1.2-3.4) 10^3/uL 1.55 Absolute Monocytes (0.1-0.8) 10^3/uL 1.60 H Absolute Eosinophils (0.0-0.7) 10^3/uL 0.45 Absolute Basophils (0.0-0.2) 10^3/uL 0.10 RBC Morphology See Below Polychromasia Hypochromasia 1+ Basophilic Stippling Anisocytosis 1+ VBG pH (7.31-7.41) VBG pCO2 (41-51) mmHg VBG pO2 mmHg VBG HCO3 (23-28) mmol/L VBG Total CO2 (24-29) mmol/L VBG O2 Saturation % VBG Base Excess (-2-3) mmol/L VBG Lactate (0.6-1.4) mmol/L Sodium (136-145) mmol/L Potassium (3.5-5.1) mmol/L Chloride (98-107) mmol/L Carbon Dioxide (21.0-32.0) mmol/L Anion Gap (3-11) mmol/L BUN (7-18) mg/dL Creatinine (0.70-1.30) mg/dL Est GFR (CKD-EPI 2020) (mL/min/1.73m2) Glucose (74-106) mg/dL Calcium (8.5-10.1) mg/dL Magnesium (1.8-2.4) mg/dL Total Bilirubin (0.2-1.0) mg/dL AST (15-37) U/L ALT (16-63) U/L Alkaline Phosphatase (46-116) U/L Troponin I (<or=60) ng/L 70 H* Total Protein (6.4-8.2) g/dL Albumin (3.4-5.0) g/dL Lipase (16-77) U/L Procalcitonin ng/mL Urine Color (Yellow) Yellow Urine Clarity (Clear) Clear Urine pH (5-8) 6.0 Ur Specific [place] (1.005-1.025) 1.010 Urine Protein (Negative) mg/dL Negative Urine Ketones (Negative) mg/dL Negative Urine Blood (Negative) Trace-intact H Urine Nitrite (Negative) Negative Urine Bilirubin (Negative) Negative Urine Urobilinogen (Up to 0.2) mg/dL 0.2 Ur Leukocyte Esterase (Negative) Negative Urine RBC (0-2) HPF 3-5 H Urine WBC (0-5) HPF 0-2 Ur Epithelial Cells (Negative) HPF Rare Urine Crystals (Negative) HPF Negative Urine Bacteria (Negative) HPF Rare Urine Mucus (Negative) Negative Ur Culture Indicated? No Urine Glucose (Negative) mg/dL Negative Digoxin (0.90-2.00) ng/mL COVID-19 Source SARS-CoV-2 (PCR) (Negative) Urine Legionella Ag (Negative) Ur Strep pneumoniae Ag (Negative) Add-On Test Request Range/Units 11/25/22 11/26/22 11/26/22 22:55 05:50 05:50 WBC (4.4-10.8) 10^3/uL 36.82 H* RBC (4.36-5.78) 10^6/uL 4.89 Hgb (13.5-17.5) g/dL 11.5 L Hct (40.0-50.0) % 39.5 L MCV (80-95) fL 81 MCH (27.0-33.0) pg 23.5 L MCHC (32.0-36.0) % 29.1 L RDW (11.8-14.1) % 16.5 H Plt Count (130-400) 10^3/uL 320 MPV (8.0-11.0) fL 9.3 Immature Gran % See Differential Neutrophils % 83.0 Band Neutrophils % 7 Lymphocytes % 2.0 Monocytes % 7.0 Eosinophils % 0.0 Basophils % 1.0 Nucleated RBC % (0.0-0.3) % 0.0 Absolute Neutrophils (1.2-6.7) 10^3/uL 33.14 H Absolute Lymphocytes (1.2-3.4) 10^3/uL 0.74 L Absolute Monocytes (0.1-0.8) 10^3/uL 2.58 H Absolute Eosinophils (0.0-0.7) 10^3/uL 0.00 Absolute Basophils (0.0-0.2) 10^3/uL 0.37 H RBC Morphology See Below Polychromasia Present Hypochromasia Basophilic Stippling Present Anisocytosis VBG pH (7.31-7.41) VBG pCO2 (41-51) mmHg VBG pO2 mmHg VBG HCO3 (23-28) mmol/L VBG Total CO2 (24-29) mmol/L VBG O2 Saturation % VBG Base Excess (-2-3) mmol/L VBG Lactate (0.6-1.4) mmol/L Sodium (136-145) mmol/L Potassium (3.5-5.1) mmol/L Chloride (98-107) mmol/L Carbon Dioxide (21.0-32.0) mmol/L Anion Gap (3-11) mmol/L BUN (7-18) mg/dL Creatinine (0.70-1.30) mg/dL Est GFR (CKD-EPI 2020) (mL/min/1.73m2) Glucose (74-106) mg/dL Calcium (8.5-10.1) mg/dL Magnesium (1.8-2.4) mg/dL Total Bilirubin (0.2-1.0) mg/dL AST (15-37) U/L ALT (16-63) U/L Alkaline Phosphatase (46-116) U/L Troponin I (<or=60) ng/L 74 H* 54 Total Protein (6.4-8.2) g/dL Albumin (3.4-5.0) g/dL Lipase (16-77) U/L Procalcitonin ng/mL Urine Color (Yellow) Urine Clarity (Clear) Urine pH (5-8) Ur Specific [place] (1.005-1.025) Urine Protein (Negative) mg/dL Urine Ketones (Negative) mg/dL Urine Blood (Negative) Urine Nitrite (Negative) Urine Bilirubin (Negative) Urine Urobilinogen (Up to 0.2) mg/dL Ur Leukocyte Esterase (Negative) Urine RBC (0-2) HPF Urine WBC (0-5) HPF Ur Epithelial Cells (Negative) HPF Urine Crystals (Negative) HPF Urine Bacteria (Negative) HPF Urine Mucus (Negative) Ur Culture Indicated? Urine Glucose (Negative) mg/dL Digoxin (0.90-2.00) ng/mL COVID-19 Source SARS-CoV-2 (PCR) (Negative) Urine Legionella Ag (Negative) Ur Strep pneumoniae Ag (Negative) Add-On Test Request Range/Units 11/26/22 11/26/22 11/26/22 05:50 05:50 05:50 WBC (4.4-10.8) 10^3/uL RBC (4.36-5.78) 10^6/uL Hgb (13.5-17.5) g/dL Hct (40.0-50.0) % MCV (80-95) fL MCH (27.0-33.0) pg MCHC (32.0-36.0) % RDW (11.8-14.1) % Plt Count (130-400) 10^3/uL MPV (8.0-11.0) fL Immature Gran % Neutrophils % Band Neutrophils % Lymphocytes % Monocytes % Eosinophils % Basophils % Nucleated RBC % (0.0-0.3) % Absolute Neutrophils (1.2-6.7) 10^3/uL Absolute Lymphocytes (1.2-3.4) 10^3/uL Absolute Monocytes (0.1-0.8) 10^3/uL Absolute Eosinophils (0.0-0.7) 10^3/uL Absolute Basophils (0.0-0.2) 10^3/uL RBC Morphology Polychromasia Hypochromasia Basophilic Stippling Anisocytosis VBG pH (7.31-7.41) 7.36 VBG pCO2 (41-51) mmHg 60 H VBG pO2 mmHg 62 VBG HCO3 (23-28) mmol/L 34 H VBG Total CO2 (24-29) mmol/L 31 H VBG O2 Saturation % 93 VBG Base Excess (-2-3) mmol/L 8 H VBG Lactate (0.6-1.4) mmol/L Sodium (136-145) mmol/L 139 Potassium (3.5-5.1) mmol/L 4.5 Chloride (98-107) mmol/L 99 Carbon Dioxide (21.0-32.0) mmol/L 33.5 H Anion Gap (3-11) mmol/L 6.5 BUN (7-18) mg/dL 18 Creatinine (0.70-1.30) mg/dL 0.9 Est GFR (CKD-EPI 2020) (mL/min/1.73m2) 94.19 Glucose (74-106) mg/dL 136 H Calcium (8.5-10.1) mg/dL 8.8 Magnesium (1.8-2.4) mg/dL Total Bilirubin (0.2-1.0) mg/dL AST (15-37) U/L ALT (16-63) U/L Alkaline Phosphatase (46-116) U/L Troponin I (<or=60) ng/L Total Protein (6.4-8.2) g/dL Albumin (3.4-5.0) g/dL Lipase (16-77) U/L Procalcitonin ng/mL Urine Color (Yellow) Urine Clarity (Clear) Urine pH (5-8) Ur Specific [place] (1.005-1.025) Urine Protein (Negative) mg/dL Urine Ketones (Negative) mg/dL Urine Blood (Negative) Urine Nitrite (Negative) Urine Bilirubin (Negative) Urine Urobilinogen (Up to 0.2) mg/dL Ur Leukocyte Esterase (Negative) Urine RBC (0-2) HPF Urine WBC (0-5) HPF Ur Epithelial Cells (Negative) HPF Urine Crystals (Negative) HPF Urine Bacteria (Negative) HPF Urine Mucus (Negative) Ur Culture Indicated? Urine Glucose (Negative) mg/dL Digoxin (0.90-2.00) ng/mL COVID-19 Source SARS-CoV-2 (PCR) (Negative) Urine Legionella Ag (Negative) Ur Strep pneumoniae Ag (Negative) Add-On Test Request DONE Range/Units 11/26/22 11/26/22 11/27/22 05:50 07:50 06:25 WBC (4.4-10.8) 10^3/uL RBC (4.36-5.78) 10^6/uL Hgb (13.5-17.5) g/dL Hct (40.0-50.0) % MCV (80-95) fL MCH (27.0-33.0) pg MCHC (32.0-36.0) % RDW (11.8-14.1) % Plt Count (130-400) 10^3/uL MPV (8.0-11.0) fL Immature Gran % Neutrophils % Band Neutrophils % Lymphocytes % Monocytes % Eosinophils % Basophils % Nucleated RBC % (0.0-0.3) % Absolute Neutrophils (1.2-6.7) 10^3/uL Absolute Lymphocytes (1.2-3.4) 10^3/uL Absolute Monocytes (0.1-0.8) 10^3/uL Absolute Eosinophils (0.0-0.7) 10^3/uL Absolute Basophils (0.0-0.2) 10^3/uL RBC Morphology Polychromasia Hypochromasia Basophilic Stippling Anisocytosis VBG pH (7.31-7.41) VBG pCO2 (41-51) mmHg VBG pO2 mmHg VBG HCO3 (23-28) mmol/L VBG Total CO2 (24-29) mmol/L VBG O2 Saturation % VBG Base Excess (-2-3) mmol/L VBG Lactate (0.6-1.4) mmol/L Sodium (136-145) mmol/L 137 Potassium (3.5-5.1) mmol/L 4.3 Chloride (98-107) mmol/L 101 Carbon Dioxide (21.0-32.0) mmol/L 33.8 H Anion Gap (3-11) mmol/L 2.2 L BUN (7-18) mg/dL 28 H Creatinine (0.70-1.30) mg/dL 0.9 Est GFR (CKD-EPI 2020) (mL/min/1.73m2) 94.19 Glucose (74-106) mg/dL 151 H Calcium (8.5-10.1) mg/dL 9.9 Magnesium (1.8-2.4) mg/dL Total Bilirubin (0.2-1.0) mg/dL AST (15-37) U/L ALT (16-63) U/L Alkaline Phosphatase (46-116) U/L Troponin I (<or=60) ng/L Total Protein (6.4-8.2) g/dL Albumin (3.4-5.0) g/dL Lipase (16-77) U/L Procalcitonin ng/mL 1.7 Urine Color (Yellow) Urine Clarity (Clear) Urine pH (5-8) Ur Specific [place] (1.005-1.025) Urine Protein (Negative) mg/dL Urine Ketones (Negative) mg/dL Urine Blood (Negative) Urine Nitrite (Negative) Urine Bilirubin (Negative) Urine Urobilinogen (Up to 0.2) mg/dL Ur Leukocyte Esterase (Negative) Urine RBC (0-2) HPF Urine WBC (0-5) HPF Ur Epithelial Cells (Negative) HPF Urine Crystals (Negative) HPF Urine Bacteria (Negative) HPF Urine Mucus (Negative) Ur Culture Indicated? Urine Glucose (Negative) mg/dL Digoxin (0.90-2.00) ng/mL COVID-19 Source SARS-CoV-2 (PCR) (Negative) Urine Legionella Ag (Negative) Negative Ur Strep pneumoniae Ag (Negative) Negative Add-On Test Request Range/Units 11/27/22 11/28/22 11/29/22 06:25 06:05 06:09 WBC (4.4-10.8) 10^3/uL 43.47 H* 24.90 H RBC (4.36-5.78) 10^6/uL 5.15 4.44 Hgb (13.5-17.5) g/dL 12.2 L 10.5 L Hct (40.0-50.0) % 41.9 35.5 L MCV (80-95) fL 81 80 MCH (27.0-33.0) pg 23.7 L 23.6 L MCHC (32.0-36.0) % 29.1 L 29.6 L RDW (11.8-14.1) % 16.5 H 16.7 H Plt Count (130-400) 10^3/uL 340 317 MPV (8.0-11.0) fL 9.4 9.5 Immature Gran % 0.0 See Differential Neutrophils % 89.0 83.0 Band Neutrophils % 1 Lymphocytes % 2.0 13.0 Monocytes % 9.0 3.0 Eosinophils % 0.0 0.0 Basophils % 0.0 0.0 Nucleated RBC % (0.0-0.3) % 0.0 0.0 Absolute Neutrophils (1.2-6.7) 10^3/uL 38.69 H 20.92 H Absolute Lymphocytes (1.2-3.4) 10^3/uL 0.87 L 3.24 Absolute Monocytes (0.1-0.8) 10^3/uL 3.91 H 0.75 Absolute Eosinophils (0.0-0.7) 10^3/uL 0.00 0.00 Absolute Basophils (0.0-0.2) 10^3/uL 0.00 0.00 RBC Morphology Normal Normal Polychromasia Hypochromasia Basophilic Stippling Anisocytosis VBG pH (7.31-7.41) VBG pCO2 (41-51) mmHg VBG pO2 mmHg VBG HCO3 (23-28) mmol/L VBG Total CO2 (24-29) mmol/L VBG O2 Saturation % VBG Base Excess (-2-3) mmol/L VBG Lactate (0.6-1.4) mmol/L Sodium (136-145) mmol/L 142 Potassium (3.5-5.1) mmol/L 3.7 Chloride (98-107) mmol/L 103 Carbon Dioxide (21.0-32.0) mmol/L 35.4 H Anion Gap (3-11) mmol/L 3.6 BUN (7-18) mg/dL 28 H Creatinine (0.70-1.30) mg/dL 0.8 Est GFR (CKD-EPI 2020) (mL/min/1.73m2) 97.61 Glucose (74-106) mg/dL 94 Calcium (8.5-10.1) mg/dL 9.2 Magnesium (1.8-2.4) mg/dL 1.7 L Total Bilirubin (0.2-1.0) mg/dL AST (15-37) U/L ALT (16-63) U/L Alkaline Phosphatase (46-116) U/L Troponin I (<or=60) ng/L Total Protein (6.4-8.2) g/dL Albumin (3.4-5.0) g/dL Lipase (16-77) U/L Procalcitonin ng/mL Urine Color (Yellow) Urine Clarity (Clear) Urine pH (5-8) Ur Specific [place] (1.005-1.025) Urine Protein (Negative) mg/dL Urine Ketones (Negative) mg/dL Urine Blood (Negative) Urine Nitrite (Negative) Urine Bilirubin (Negative) Urine Urobilinogen (Up to 0.2) mg/dL Ur Leukocyte Esterase (Negative) Urine RBC (0-2) HPF Urine WBC (0-5) HPF Ur Epithelial Cells (Negative) HPF Urine Crystals (Negative) HPF Urine Bacteria (Negative) HPF Urine Mucus (Negative) Ur Culture Indicated? Urine Glucose (Negative) mg/dL Digoxin (0.90-2.00) ng/mL COVID-19 Source SARS-CoV-2 (PCR) (Negative) Urine Legionella Ag (Negative) Ur Strep pneumoniae Ag (Negative) Add-On Test Request Range/Units 11/29/22 06:09 WBC (4.4-10.8) 10^3/uL 20.20 H RBC (4.36-5.78) 10^6/uL 4.74 Hgb (13.5-17.5) g/dL 11.2 L Hct (40.0-50.0) % 37.8 L MCV (80-95) fL 80 MCH (27.0-33.0) pg 23.6 L MCHC (32.0-36.0) % 29.6 L RDW (11.8-14.1) % 16.9 H Plt Count (130-400) 10^3/uL 347 MPV (8.0-11.0) fL 9.5 Immature Gran % 0.8 Neutrophils % 74.4 Band Neutrophils % Lymphocytes % 17.7 Monocytes % 6.6 Eosinophils % 0.4 Basophils % 0.1 Nucleated RBC % (0.0-0.3) % 0.1 Absolute Neutrophils (1.2-6.7) 10^3/uL 15.03 H Absolute Lymphocytes (1.2-3.4) 10^3/uL 3.58 H Absolute Monocytes (0.1-0.8) 10^3/uL 1.33 H Absolute Eosinophils (0.0-0.7) 10^3/uL 0.08 Absolute Basophils (0.0-0.2) 10^3/uL 0.02 RBC Morphology Polychromasia Hypochromasia Basophilic Stippling Anisocytosis VBG pH (7.31-7.41) VBG pCO2 (41-51) mmHg VBG pO2 mmHg VBG HCO3 (23-28) mmol/L VBG Total CO2 (24-29) mmol/L VBG O2 Saturation % VBG Base Excess (-2-3) mmol/L VBG Lactate (0.6-1.4) mmol/L Sodium (136-145) mmol/L Potassium (3.5-5.1) mmol/L Chloride (98-107) mmol/L Carbon Dioxide (21.0-32.0) mmol/L Anion Gap (3-11) mmol/L BUN (7-18) mg/dL Creatinine (0.70-1.30) mg/dL Est GFR (CKD-EPI 2020) (mL/min/1.73m2) Glucose (74-106) mg/dL Calcium (8.5-10.1) mg/dL Magnesium (1.8-2.4) mg/dL Total Bilirubin (0.2-1.0) mg/dL AST (15-37) U/L ALT (16-63) U/L Alkaline Phosphatase (46-116) U/L Troponin I (<or=60) ng/L Total Protein (6.4-8.2) g/dL Albumin (3.4-5.0) g/dL Lipase (16-77) U/L Procalcitonin ng/mL Urine Color (Yellow) Urine Clarity (Clear) Urine pH (5-8) Ur Specific [place] (1.005-1.025) Urine Protein (Negative) mg/dL Urine Ketones (Negative) mg/dL Urine Blood (Negative) Urine Nitrite (Negative) Urine Bilirubin (Negative) Urine Urobilinogen (Up to 0.2) mg/dL Ur Leukocyte Esterase (Negative) Urine RBC (0-2) HPF Urine WBC (0-5) HPF Ur Epithelial Cells (Negative) HPF Urine Crystals (Negative) HPF Urine Bacteria (Negative) HPF Urine Mucus (Negative) Ur Culture Indicated? Urine Glucose (Negative) mg/dL Digoxin (0.90-2.00) ng/mL COVID-19 Source SARS-CoV-2 (PCR) (Negative) Urine Legionella Ag (Negative) Ur Strep pneumoniae Ag (Negative) Add-On Test Request
[2022-11-29] MEDS: MORPHine 2 MG/ML SYR IVP (07:28)
[2022-11-29] MEDS: Omeprazole 20 MG CAPCR PO (07:28)
[2022-11-29] MEDS: Digoxin 0.125 MG TAB PO (07:58)
[2022-11-29] MEDS: dilTIAZem CD 120 MG CAPCR 240 MG PO ×2 (07:58→19:52)
[2022-11-29] MEDS: predniSONE 20 MG TAB 40 MG PO (07:58)
[2022-11-29] MEDS: guaiFENesin 600 MG TABCR PO ×2 (07:58→19:52)
[2022-11-29] MEDS: Potassium Chloride 20 MEQ TABCR PO (07:59)
[2022-11-29] MEDS: Furosemide 20 MG TAB PO (07:59)
[2022-11-29] MEDS: Aspirin E.C. 81 MG TABEC PO (07:59)
[2022-11-29] MEDS: Roflumilast 500 MCG TAB PO (07:59)
[2022-11-29] MEDS: Tiotropium Bromide-Respimat 10 PUFF INH 2 PUFF IH (08:02)
[2022-11-29] MEDS: Budesonide/Formoterol 80/4.5 6.9 GM 60 PUFF INH IH ×2 (08:02→21:12)
--- NOTE | 2022-11-29 09:08 | PDOC.CMPRO ---
Date of service: 11/29/22 Time of Service: 09:08 Care Management Progress Note Progress Note Text Progress Note Text: S/O: Dave remains inpatient, anticipate new HH SN, PT, ENVIRONMENTAL PROGRAM MANAGER once medically cleared for discharge. CM will continue to follow. A: Dave is a 67 year old male admitted to [facility] on 11/25/22 for pneumonia. P: ?Anticipate Dave will be discharged home when medically cleared by provider with new orders for [facility] SN, PT, ENVIRONMENTAL PROGRAM MANAGER, home oxygen ([place]), MOW, and CFC - Highest needs.? He will follow up with his PCP and discharge plan of care as directed.? Transport home will either be via private vehicle with his son or RCT arranged by CM. CM will continue to support patient and discharge planning needs.
[2022-11-29] MEDS: Ipratropium 0.5 MG/2.5 ML UPD VIAL 0.25 MG IH ×5 (09:55→20:55)
[2022-11-29] MEDS: Levalbuterol 1.25 MG/3 ML UPD VIAL UPD ×4 (09:56→20:55)
[2022-11-29] MEDS: Enoxaparin 40 MG/0.4 ML SYR SC (10:04)
[2022-11-29] MEDS: DOXYCYCLINE 100 MG in Normal Saline 100 ML IVPB (10:04)
[2022-11-29 12:15] LABS: Leukemia/Lymphoma by FC (Blood (See below)
[2022-11-29] MEDS: levoFLOXacin 500 MG, levoFLOXacin 250 MG 750 MG PO (14:40)
--- NOTE | 2022-11-29 14:42 | PGE_ITS ---
Date of Service Date of service: 11/29/22 Time of Service: 14:42 Assessment and Plan Assessment and plan (1) Community acquired pneumonia: Status: Acute Assessment and plan: Cefepime and doxy day 4 in setting of H/O pseudomonas, will down step to levaquin continue prednisone 40mg daily for total of 5 days WBC count trending down, thought to be steroid related. Continue bronchodilators (2) Chronic respiratory failure with hypoxia: Status: Chronic Assessment and plan: He has a [facility] home. His oxygenation is now back to baseline.. There is a note of history of CO2 retention so will keep O2 sats 88-93%. pulmonary medicine following, see note. (3) Myocardial infarction: Assessment and plan: Now on ASA and statin. (4) Lesion of spleen: Status: Acute Assessment and plan: CT/chest/abd/pelvis this admission: 1. No evidence of aortic aneurysm or dissection. 2. Atherosclerosis is present.? There is marked narrowing of both the right and left internal iliac arteries as described above. 3. Worsening infiltrate in the right lower lobe suspicious for pneumonia.? Aspiration should be considered. 4. New pulmonary nodules.? These were described on the examination from the day prior.? Follow-up imaging in 3-6 months is recommended. 5. Stable multiple splenic lesions.? Metastatic disease cannot be excluded.? Nonemergent PET or biopsy is recommended.? Pulmonary nodule (Acute) PET says INFLAMM, not malignant, 10/2022. ik per 02/[address]: 2 tiny stable nodules posterior right lung base..Lung mass (Acute) NEG per PET, 10/2022, ik? New findin mm ovoid density in the inferior aspect of the right upper lobe. No focal consolidating infiltrates are present. .. per Chest CT, 2' incidental findings on Abd CT (abd pain), 09/25/22 ([facility]).. [ ]? PET scan (probably primary metastatic lesion).. (5) Paroxysmal atrial fibrillation: Status: Chronic Assessment and plan: Continue diltiazem and digoxin. Digoxin levels have been chronically low but doses have not been adjusted by primary team He is also not anticoagulated despite his stroke risk. (6) End stage COPD: Status: Chronic Assessment and plan: see respiratory failure above (7) DVT prophylaxis: Status: Acute Assessment and plan: LMWH for now (8) Discharge planning issues: Status: Acute Assessment and plan: Dave is a complex patient and has regular palliative and home visits. Palliative consulting. discussed with DR Sullivan Subjective Subjective Patient reports: no new complaints, feels better, tolerating liquids well, tolerating a regular diet, shortness of breath (with activity) and afebrile Interval history since last seen: some right sided pleuritic papin Exam Const General: cooperative and no acute distress Orientation: alert, awake and oriented x3 Limitations: mental status not altered Neck Neck: normal visual inspection, full ROM and supple Chest Chest: normal inspection of the chest Resp Effort & Inspection: normal respiratory effort Auscultation: wheezes expiratory wheezes and scattered wheezes Cardio Jugular venous pressure: no JVD Rate: regular rate Rhythm: regular rhythm Skin General skin exam: no rashes or lesions noted Neuro General: patient alert, patient awake, patient oriented x3, tone normal and moves all extremities Psych Mental Status: mental status grossly normal Mood: congruent mood Affect: normal affect Objective Last Vital Signs Temp 36.6 C 11/29/22 10:56 Pulse 95 H 11/29/22 10:56 Resp 17 11/29/22 10:56 BP 138/76 11/29/22 10:56 Pulse Ox 93 11/29/22 13:46 Laboratory Results - last 24 hr 11/26/22 11/28/22 11/29/22 07:50 13:00 06:09 WBC RBC Hgb Hct MCV MCH MCHC RDW Plt Count MPV Immature Gran % Neutrophils % Lymphocytes % Monocytes % Eosinophils % Basophils % Nucleated RBC % Absolute Neutrophils Absolute Lymphocytes Absolute Monocytes Absolute Eosinophils Absolute Basophils Sodium 142 Potassium 3.7 Chloride 103 Carbon Dioxide 35.4 H Anion Gap 3.6 BUN 28 H Creatinine 0.8 Est GFR (CKD-EPI 2020) 97.61 Glucose 94 Calcium 9.2 Magnesium 1.7 L Lymph/Leukemia Panel (See below) Ur Strep pneumoniae Ag Negative 11/29/22 06:09 WBC 20.20 H RBC 4.74 Hgb 11.2 L Hct 37.8 L MCV 80 MCH 23.6 L MCHC 29.6 L RDW 16.9 H Plt Count 347 MPV 9.5 Immature Gran % 0.8 Neutrophils % 74.4 Lymphocytes % 17.7 Monocytes % 6.6 Eosinophils % 0.4 Basophils % 0.1 Nucleated RBC % 0.1 Absolute Neutrophils 15.03 H Absolute Lymphocytes 3.58 H Absolute Monocytes 1.33 H Absolute Eosinophils 0.08 Absolute Basophils 0.02 Sodium Potassium Chloride Carbon Dioxide Anion Gap BUN Creatinine Est GFR (CKD-EPI 2020) Glucose Calcium Magnesium Lymph/Leukemia Panel Ur Strep pneumoniae Ag Time Spent with Patient Time Spent with Patient: 25-34 minutes Time was spent: preparing to see the patient(eg.review tests), obtaining and/or reviewing separately otained hiistory, ordering medications,tests, procedures, referring, communicating with other health post acute care nurse, indepentently interpreting results and counseling the patient
[2022-11-29] MEDS: Acetaminophen 325 MG TAB 650 MG PO ×2 (15:23→19:52)
[2022-11-29] MEDS: Lidocaine 5% Patch 1 PATCH TP (15:24)
--- NOTE | 2022-11-29 15:44 | PHA.REVIEW2 ---
Pharmacy Admission Review - Admission Clinical Review (Last Reviewed 11/27/22 @ 17:10 by Madhuri Dunn NP) Palliative care patient (Acute) Discharge planning issues (Acute) DVT prophylaxis (Acute) Community acquired pneumonia (Acute) Atrial fibrillation with RVR (Acute) History of recent hospitalization (Acute) Dependence on continuous supplemental oxygen (Acute) Lung mass (Acute) Bone metastases (Acute) Lesion of spleen (Acute) Advance care planning (Acute) albuterol Adverse Reaction (Intermediate, Verified 11/23/22 20:39) SVT/rapid heart rate citalopram [From Celexa] Adverse Reaction (Verified 11/23/22 20:39) worsening anxiety/depression terazosin Adverse Reaction (Verified 11/23/22 20:39) Dizziness/Lightheade lobster Allergy (Uncoded 11/23/22 20:39) Dizziness/Lightheade Resuscitation Status Full Code Height 5 ft 9 in Weight 89.4 kg - Renal Dosing Renal Dosing: BUN 28 mg/dL (7-18) H 11/29/22 06:09 Creatinine 0.8 mg/dL (0.70-1.30) 11/29/22 06:09 Medications needing adjustments: Reviewed (crcl = 80, no adjustments needed) - Anticoagulation Anticoagulation: Hgb 11.2 g/dL (13.5-17.5) L 11/29/22 06:09 Hct 37.8 % (40.0-50.0) L 11/29/22 06:09 Plt Count 347 10^3/uL (130-400) 11/29/22 06:09 Creatinine 0.8 mg/dL (0.70-1.30) 11/29/22 06:09 DVT Prophylaxis: Reviewed Medications: Enoxaparin (lovenox 40 mg daily) - Opiate Usage Evaluate Pain Scale/Pains Meds: N/A - Relevant Labs Sodium 142 mmol/L (136-145) 11/29/22 06:09 Potassium 3.7 mmol/L (3.5-5.1) 11/29/22 06:09 Chloride 103 mmol/L (98-107) 11/29/22 06:09 Magnesium 1.7 mg/dL (1.8-2.4) L 11/29/22 06:09 Electrolytes, C-Reactive P, ESR: Reviewed - DM Control DM Control: Glucose 94 mg/dL (74-106) 11/29/22 06:09 DM Control: N/A - Cardiac Review Cardiac Review: Troponin I 54 ng/L (<or=60) 11/26/22 05:50 BP, HR, EF%: Reviewed - Qtc Review QTc: Reviewed (QTc = 399 on 11/25/22) - IV to PO Switch IV Medications: Reviewed (IV abx switched to PO) - Home Meds Home Med List reviewed: Reviewed - Current meds Current Medication Order Review: Reviewed - Comments Comments/Follow Ups: COPD on symbicort & spiriva inhalers, xopenex + atrovent nebs scheduled q4h, daliresp. Prednisone 40 mg daily (x5 days per Dr. Handley note) Antibiotic Review - Pharmacy Antibiotic Review Pharmacy Antibiotic Activity: Antibiotic de-escalation, IV to PO - Antibiotic Information Antibiotic Review Info: indication: pneumonia, history of pseudomonas. Initially on IV doxycycline + cefepime. Spectrum narrowed today to PO levofloxacin 750 mg daily (to complete 7 day total abx course, today is day 4)
[2022-11-29] MEDS: Atorvastatin 40 MG TAB 80 MG PO (19:52)
[2022-11-29] MEDS: Patch Removal 1 EACH TP (21:13)
[2022-11-30] VITALS (13 sets, daily range): BP systolic 143–163; BP diastolic 48–90; PULSE 80–105; RESP 4–22; TEMP 36.1–37.2; O2SAT 90–98
[2022-11-30] MEDS: Levalbuterol 1.25 MG/3 ML UPD VIAL UPD ×4 (00:56→14:41)
[2022-11-30] MEDS: Ibuprofen 600 MG TAB PO (00:56)
[2022-11-30] MEDS: Ipratropium 0.5 MG/2.5 ML UPD VIAL 0.25 MG IH ×4 (00:56→14:43)
[2022-11-30 06:45] LABS: Abs Immature Grans 0.48 10^3/uL (0.0-0.06); Absolute Lymphocyte Count 3.38 10^3/uL (1.2-3.4); Basophils % 0.5; Eosinophils % 1.7; HCT 38.9 % (40.0-50.0); HGB 11.8 g/dL (13.5-17.5); Immature Grans % 2.6; Lymphocytes % 18.3; MCH 23.6 pg (27.0-33.0); MCHC 30.3 % (32.0-36.0); MCV 78 fL (80-95); MPV 9.4 fL (8.0-11.0); Neutrophils % 68.9; Platelet Count 387 10^3/uL (130-400); RBC 4.99 10^6/uL (4.36-5.78); RDW 16.9 % (11.8-14.1); RDW-SD 47.8 fL; WBC 18.46 10^3/uL (4.4-10.8)
[2022-11-30 06:48] LABS: Absolute Basophil Count 0.09 10^3/uL (0.0-0.2); Absolute Eosinophil Count 0.31 10^3/uL (0.0-0.7); Absolute Monocyte Count 1.48 10^3/uL (0.1-0.8); Absolute Neutrophil Count 12.72 10^3/uL (1.2-6.7)
[2022-11-30 07:01] LABS: ALT 24 U/L (16-63); AST 18 U/L (15-37); Albumin 3.3 g/dL (3.4-5.0); Alkaline Phosphatase 113 U/L (46-116); Anion Gap 4.4 mmol/L (3-11); BUN 23 mg/dL (7-18); Bilirubin, Total 0.2 mg/dL (0.2-1.0); CO2 31.6 mmol/L (21.0-32.0); CREATININE 0.8 mg/dL (0.70-1.30); Calcium 9.3 mg/dL (8.5-10.1); Chloride 99 mmol/L (98-107); Estimated GFR 97.61 (mL/min/1.73m2); Glucose 102 mg/dL (74-106); Potassium 3.6 mmol/L (3.5-5.1); Sodium 135 mmol/L (136-145); Total Protein 7.3 g/dL (6.4-8.2)
[2022-11-30] MEDS: Budesonide/Formoterol 80/4.5 6.9 GM 60 PUFF INH IH (07:41)
[2022-11-30] MEDS: Tiotropium Bromide-Respimat 10 PUFF INH 2 PUFF IH (07:42)
[2022-11-30] MEDS: Potassium Chloride 20 MEQ TABCR PO (08:29)
[2022-11-30] MEDS: Digoxin 0.125 MG TAB PO (08:29)
[2022-11-30] MEDS: Aspirin E.C. 81 MG TABEC PO (08:29)
[2022-11-30] MEDS: Roflumilast 500 MCG TAB PO (08:29)
[2022-11-30] MEDS: levoFLOXacin 500 MG, levoFLOXacin 250 MG 750 MG PO (08:29)
[2022-11-30] MEDS: Omeprazole 20 MG CAPCR PO (08:30)
[2022-11-30] MEDS: predniSONE 20 MG TAB 40 MG PO (08:30)
[2022-11-30] MEDS: Acetaminophen 325 MG TAB 650 MG PO ×3 (08:30→15:58)
[2022-11-30] MEDS: Furosemide 20 MG TAB PO (08:30)
[2022-11-30] MEDS: guaiFENesin 600 MG TABCR PO (08:30)
[2022-11-30] MEDS: dilTIAZem CD 120 MG CAPCR 240 MG PO (08:30)
[2022-11-30] MEDS: Lidocaine 5% Patch 1 PATCH TP (08:35)
[2022-11-30] MEDS: Enoxaparin 40 MG/0.4 ML SYR SC (10:06)
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
--- NOTE | 2022-11-30 11:53 | PDOC.HHF2F ---
Home Health Referral Home Health Orders Clinical synopsis of why skilled professionals are needed: This is a 67-year-old male patient complex medical history including hypoxic respiratory failure oxygen dependency Trilogy respirator, recently hospitalized for community-acquired pneumonia said a history of CVA with dysarthria. Medical diagnosis necessitation home health referral: Community-acquired pneumonia with acute hypoxic respiratory failure Registered Nurse: Check all that apply Instruct on new or changed medication(s)/assess compliance: Ordered Assess for exacerbation of medical condition, instruct patient/caregivers on signs and symptoms to report for early detection: Ordered Physical Therapist: Check all that apply Increase strength & endurance for safe mobility at home: Ordered To design/establish home maintenance program: Ordered Fall reduction therapy program for patient with history of frequent falls: Ordered Home safety evaluation and teaching/gait training including stair management (if applicable): Ordered Better Breathing Program: Ordered Occupational Therapist: Evaluate and treat for patient unable to perform ADL/IADL/self-care: Ordered Preservative Filler Machine Operator: Assist with community resources: Ordered Assist with intermediate project manager care planning: Ordered Other: Has geriatric case manager Home Bound Status Requires the aid of supportive device (check all that apply): Walker Patient has a condition such that leaving home is medically contraindicated (Describe): requires oxygen 100% of the time, 27/01 Describe why leaving home would require a considerable and taxing effort: Requires frequent rest periods and Oxygen Encounter Date and Reason: I certify that a FTF encounter for this patient was performed on November 30, 2022 and that such encounter was related to the primary reason the patient requires home health services. The encounter was conducted in the following manner: By me as the certifying physician, HEALTH PSYCHOLOGIST, PA or By an inpatient physician, HEALTH PSYCHOLOGIST or PA during an inpatient stay who communicated findings to me, Certification And Authentication I certify that I composed the above information based on my clinical judgment relating to this patient's medical condition and, if applicable, clinical findings communicated to me by the NPP or inpatient physician who performed the FTF encounter. Name of Provider that will be monitoring home health services: Marielena Bates
--- NOTE | 2022-11-30 12:24 | PDOC.CMDIS ---
Date of service: 11/30/22 Time of Service: 12:24 Care Management Discharge Plan Reason for Hospitalization: Pneumonia
--- NOTE | 2022-11-30 14:51 | PDOC.CMDIS ---
Date of service: 11/30/22 Time of Service: 14:51 LACE Index Scoring Tool Questions: Length of Stay (in days): 4 - 6 Was the patient admitted via the E.D.?: Yes Comorbidities: Chronic Pulmonary Disease and Any Tumor E.D. Visits: 4 Answers: Total Score: 16 Risk of Readmission: High Risk Care Management Discharge Plan Reason for Hospitalization: Pneumonia Discharge Plan: Anticipate Dave will be discharged home when medically cleared by provider with new orders for [facility] SN, PT, DIRECTOR OF PUPIL PERSONNEL PROGRAM, home oxygen ([place]), MOW, and [facility] - Highest needs. He will follow up with his PCP and discharge plan of care as directed. Transport home coordination requested of Lesly by CM, per Dave's wishes. Patient/Family Education Needs: Review discharge instructions, discuss Ask Me Three. Services Needed at Discharge: DME Agency, Home Health Care Services and Oxygen Therapy
[2022-12-02 12:27] LABS: Fungitell Qualitative Negative (Negative); Fungitell Quantitative Value <31 pg/mL (<60 pg/mL)
[2022-12-03 23:38] LABS: Blastomyces Ag Result Not Detected; Blastomyces Ag Value Not Detected
== END 2022-11-30 17:10 | disposition home health service (06) | DRG 193 ==
LOC: ER 23:50 → ICU 11-26 00:34 → MS 11-26 17:54
PROVIDERS: Family Medicine; Internal Medicine; Nurse Practitioner Acute Care; Student in an Organized Health Care Education/Training Program; Admitting Provider Family Medicine; Emergency Provider Physician Assistant; PCP Student in an Organized Health Care Education/Training Program; Visit Provider Family Medicine
DX: J18.9 Pneumonia, unspecified organism (principal); I21.A1 Myocardial infarction type 2; C79.51 Secondary malignant neoplasm of bone; I47.1 Supraventricular tachycardia; J44.0 Chronic obstructive pulmonary disease with (acute) lower respiratory infection; J96.11 Chronic respiratory failure with hypoxia; R74.8 Abnormal levels of other serum enzymes; I48.0 Paroxysmal atrial fibrillation; Z99.81 Dependence on supplemental oxygen; R91.8 Other nonspecific abnormal finding of lung field; D73.89 Other diseases of spleen; Z87.820 Personal history of traumatic brain injury; R47.1 Dysarthria and anarthria; F22 Delusional disorders; E55.9 Vitamin D deficiency, unspecified; D64.9 Anemia, unspecified; K21.9 Gastro-esophageal reflux disease without esophagitis; E78.5 Hyperlipidemia, unspecified; G31.84 Mild cognitive impairment of uncertain or unknown etiology; Z87.891 Personal history of nicotine dependence
CPT/HCPCS: 36410; 36415; 71275; 80048; 80053; 82805; 83690; 84145; 87040; 87081; 87116; 87206; 87305; 87449; 87635; 88185; 93005; 94640; J1650; 71046; 74174; 80162; 81003; 81015; 83605; 83735; 84484; 85025; 87070; 87205; 87385; 87899; 88184; 88189; 93010; 94664; 94667; 94668; 94760; 99232; 99233; 99239; J2270; J2930; J3490; J7512; J7614; J7620; J7644

== ENCOUNTER 2023-01-12 13:10 | Observation (INO) | payer MEDICARE, MEDICAID, SELFPAY ==
[2023-01-12] VITALS (61 sets, daily range): BP systolic 101–162; BP diastolic 48–96; PULSE 59–166; RESP 15–28; TEMP 35.1–36.6; O2SAT 86–97
--- NOTE | 2023-01-12 13:00 | RT.EKG_ITS ---
APPROVED REPORT Exam: Resting ECG Reason for Exam: afib Patient Location: E HR:77 bpm ECG Measurements Heart Rate 77 AXIS [place] 134 P 91 QRSd 88 QRS 79 QT 348 T 57 QTc 393 Conclusion Sinus rhythm...normal P axis, V-rate 60- [address] depression, diffuse leads...ST <-0.03mV, ant/lat/inf mild, ? significant st dep. old inferior Q waves, , previous ECG was a fib No STEMI
--- NOTE | 2023-01-12 13:45 | DI.RAD_ITS ---
Exam(s) XR CHEST 2V PA LATERAL EXAM: XR CHEST 2V PA LATERAL CLINICAL HISTORY: afib TECHNIQUE: 2D digital imaging was performed. COMPARISON: CT CT THORAX ABD/PEL CTA from 11/25/2022 CR XR CHEST 2V PA LATERAL from 11/28/2022 FINDINGS: HEART: Normal size. Aorta: Not dilated. PULMONARY VASCULATURE: Normal. LUNGS: Emphysematous and fibrotic changes. Chronic blunting at the right costophrenic angle. Improv ement previously noted right lower lobe infiltrate. Some residual densities remain present which cou ld represent scarring. No evidence of pulmonary edema. PLEURAL SPACE: No pleural effusion or pneumothorax. BONE:Unremarkable for age. IMPRESSION: Improvement in right lower lobe infiltrate with some residual density.. Underlying emphysematous and fibrotic changes. DATA REPOSITORY: RADIATION DOSE DELIVERED:
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
[2023-01-12 14:08] LABS: Abs Immature Grans 0.06 10^3/uL (0.0-0.06); Absolute Basophil Count 0.09 10^3/uL (0.0-0.2); Absolute Eosinophil Count 0.82 10^3/uL (0.0-0.7); Absolute Lymphocyte Count 2.36 10^3/uL (1.2-3.4); Absolute Monocyte Count 1.02 10^3/uL (0.1-0.8); Basophils % 0.8; Eosinophils % 7.3; HCT 42.2 % (40.0-50.0); Immature Grans % 0.5; Lymphocytes % 21.1; MCH 23.3 pg (27.0-33.0); MCHC 28.4 % (32.0-36.0); MCV 82 fL (80-95); MPV 9.3 fL (8.0-11.0); Monocytes % 9.1; Neutrophils % 61.2; Platelet Count 292 10^3/uL (130-400); RBC 5.14 10^6/uL (4.36-5.78); RDW 16.4 % (11.8-14.1); RDW-SD 49.1 fL; WBC 11.19 10^3/uL (4.4-10.8)
[2023-01-12 14:10] LABS: Absolute Neutrophil Count 6.85 10^3/uL (1.2-6.7)
[2023-01-12] MEDS: Aspirin 325 MG TAB PO (14:26)
[2023-01-12 14:35] LABS: ALT 24 U/L (16-63); AST 16 U/L (15-37); Albumin 3.6 g/dL (3.4-5.0); Alkaline Phosphatase 159 U/L (46-116); Anion Gap 4.7 mmol/L (3-11); BUN 20 mg/dL (7-18); Bilirubin, Total 0.1 mg/dL (0.2-1.0); CO2 37.3 mmol/L (21.0-32.0); CREATININE 0.7 mg/dL (0.70-1.30); Calcium 8.7 mg/dL (8.5-10.1); Chloride 103 mmol/L (98-107); Estimated GFR 101.62 (mL/min/1.73m2); Glucose 138 mg/dL (74-106); Magnesium 1.9 mg/dL (1.8-2.4); NT-proBNP 35 pg/mL (<300); Sodium 145 mmol/L (136-145); TSH (W/Ref FT4) 0.65 uIU/mL (0.36-3.74); Total Protein 7.5 g/dL (6.4-8.2); Troponin I < 50 ng/L (<or=60)
[2023-01-12 14:38] LABS: Digoxin 0.41 ng/mL (0.90-2.00)
[2023-01-12 14:56] LABS: *AMPHETAMINES SCREEN URINE Negative (Negative); *BARBITURATES SCREEN URINE Negative (Negative); *BENZODIAZEPINES SCREEN URINE Negative (Negative); Cannabinoids THC Negative (Negative); Cocaine Screen,Urine Negative (Negative); METHADONE URINE SCREEN Negative (Negative); OPIATES URINE SCREEN Negative (Negative)
[2023-01-12 14:59] LABS: Tricyclic Antidepressants Negative (Negative)
[2023-01-12] MEDS: Albuterol/Ipratropium 3 ML UPD VIAL UPD (15:01)
--- NOTE | 2023-01-12 15:05 | DI.VRAD_ITS ---
PROCEDURE INFORMATION: Exam: XR Chest Exam date and time: 01/12/2023 2:51 PM Age: 67 years old Clinical indication: Other: Afib TECHNIQUE: Imaging protocol: Radiologic exam of the chest. Views: 2 views. COMPARISON: CR XR CHEST 2V PA LATERAL 11/28/2022 8:05 AM FINDINGS: Lungs: Improving opacity in the right lower lobe although it persists especially on the lateral image. This may represent resolving atelectasis /pneumonia Pleural spaces: Unremarkable. No pleural effusion. No pneumothorax. Heart/Mediastinum: Unremarkable. No cardiomegaly. Bones/joints: Unremarkable. IMPRESSION: Improving opacity in the right lower lobe although it persists especially on the lateral image. This may represent resolving atelectasis /pneumonia Dictated and Authenticated by: Vivienne Pulido MD. Ordering:TIGRE Zayas MD
[2023-01-12 16:28] LABS: Troponin I < 50 ng/L (<or=60)
--- NOTE | 2023-01-12 16:30 | RT.EKG_ITS ---
APPROVED REPORT Exam: Resting ECG Reason for Exam: rapid A fib Patient Location: E HR:78 bpm ECG Measurements Heart Rate 78 AXIS NH 139 P 73 QRSd 91 QRS 74 QT 345 T 47 QTc 393 Conclusion Sinus rhythm...normal P axis, V-rate 60- [address] depression, diffuse leads...ST <-0.07mV, ant/lat/inf NSR, normal axis, normal intervals, no ST depression - pt is on digoxin and this is dig effect, more likely. Q waves in inferiorly and V4-6. NO STEMI
[2023-01-12] MEDS: dilTIAZem 25 MG/5 ML VIAL 5 MG IVP (17:29)
[2023-01-12] MEDS: dilTIAZem CD 120 MG CAPCR 240 MG PO ×2 (17:30→17:32)
[2023-01-12] MEDS: Digoxin 0.125 MG TAB PO (17:45)
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
[2023-01-12] MEDS: dilTIAZem 125 MG in Normal Saline 100 ML IV (18:36)
[2023-01-12] MEDS: Normal Saline 500 ML 10 ML IV (18:38)
[2023-01-12] MEDS: Sucralfate 1 GM TAB PO (21:48)
[2023-01-12] MEDS: Atorvastatin 40 MG TAB 80 MG PO (21:48)
[2023-01-12] MEDS: guaiFENesin 600 MG TABCR PO (21:48)
[2023-01-12] MEDS: dilTIAZem 60 MG TAB PO (23:31)
[2023-01-13] VITALS (49 sets, daily range): BP systolic 103–163; BP diastolic 32–86; PULSE 58–105; RESP 14–25; TEMP 36.3–37; O2SAT 4–95
[2023-01-13] MEDS: Potassium Chloride 10 MEQ CAPCR 20 MEQ PO (04:36)
[2023-01-13] MEDS: dilTIAZem 60 MG TAB PO (05:59)
[2023-01-13 07:15] LABS: Abs Immature Grans 0.06 10^3/uL (0.0-0.06); Absolute Basophil Count 0.08 10^3/uL (0.0-0.2); Absolute Eosinophil Count 0.97 10^3/uL (0.0-0.7); Absolute Lymphocyte Count 2.41 10^3/uL (1.2-3.4); Absolute Monocyte Count 1.23 10^3/uL (0.1-0.8); Basophils % 0.6; Eosinophils % 7.4; HCT 42.5 % (40.0-50.0); Immature Grans % 0.5; Lymphocytes % 18.4; MCH 23.2 pg (27.0-33.0); MCHC 28.2 % (32.0-36.0); MCV 82 fL (80-95); MPV 9.4 fL (8.0-11.0); Monocytes % 9.4; Neutrophils % 63.7; Platelet Count 292 10^3/uL (130-400); RBC 5.17 10^6/uL (4.36-5.78); RDW 16.6 % (11.8-14.1); RDW-SD 49.7 fL
[2023-01-13 07:22] LABS: Absolute Neutrophil Count 8.34 10^3/uL (1.2-6.7)
[2023-01-13] MEDS: guaiFENesin 600 MG TABCR PO ×2 (07:34→20:08)
[2023-01-13] MEDS: Aspirin E.C. 81 MG TABEC PO (07:34)
[2023-01-13] MEDS: Sucralfate 1 GM TAB PO ×3 (07:34→20:08)
[2023-01-13] MEDS: Omeprazole 20 MG CAPCR PO (07:34)
[2023-01-13] MEDS: Furosemide 20 MG TAB PO (07:35)
[2023-01-13] MEDS: Digoxin 0.125 MG TAB PO (07:35)
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
[2023-01-13] MEDS: Roflumilast 500 MCG TAB PO (08:08)
[2023-01-13] MEDS: Tiotropium Bromide-Respimat 10 PUFF INH 2 PUFF IH (08:33)
[2023-01-13] MEDS: dilTIAZem CD 120 MG CAPCR 240 MG PO ×2 (09:12→20:08)
[2023-01-13] MEDS: Doxycycline Hyclate 100 MG CAP PO ×2 (10:32→20:08)
[2023-01-13] MEDS: Levalbuterol 0.63 MG/3 ML UPD VIAL UPD (14:23)
--- NOTE | 2023-01-13 16:08 | PGE_ITS ---
Date of Service Date of service: 01/13/23 Time of Service: 16:09 Assessment and Plan Assessment and plan (1) Atrial fibrillation with rapid ventricular response: Status: Acute Assessment and plan: He has gone in and out of atrial fibrillation with RVR multiple times since presentation. In Afib with RVR at time of transfer to the ICU S/P IV and oral diltiazem as well as a dose of digoxin. He endorses compliance with medications. Diltiazem drip now stopped and in NSR Lytes are normal. BUN mildly elevated, creatinine normal. (2) COPD (chronic obstructive pulmonary disease): Status: Chronic Assessment and plan: No current exacerbation. However, WBC count has increased to 13.10. No fever. Likely bronchitis Doxycycline 100mg po BID initiated. Cont home medications. (3) Chronic respiratory failure with hypoxia: Status: Chronic Assessment and plan: Cont supplemental O2; titrate as needed. (4) Myocardial infarction: Assessment and plan: Previous history. No evidence of ACS currently. Cont aspirin and atorvastatin. (5) Discharge planning issues: Status: Acute Assessment and plan: Full Code Likely d/c in AM if evidence of potential infection / bronchitis improved on doxycycline. Subjective Subjective Patient reports: no new complaints, feels better and afebrile; denies diarrhea, nausea or vomiting Exam Narrative Exam Narrative: Pt is lying partially supine. NAD. Conversant and pleasant. Eager to go home. Const General: cooperative, no acute distress and well developed HENMT Head: normocephalic Ears: hearing grossly normal bilaterally Face and sinus: normal facial exam Mouth: moist mucous membranes Teeth and gingiva: poor dentition and other (The patient only has a few remaining teeth.) Eyes General: appearance normal, both eyes and all related structures Sclera: sclerae normal Neck Neck: no JVD Chest Chest: normal inspection of the chest Resp Effort & Inspection: normal respiratory effort and able to speak in complete sentences Auscultation: rhonchi Other: The patient is able to speak in full sentences and does not appear acutely dyspneic. Lungs reveal bibasilar Rales and a prolongation of the expiratory phase. I cannot appreciate any wheezing or rhonchi. No retractions or nasal flaring Cardio Rate: regular rate Rhythm: abnormal rhythm irregularly irregular Other: Heart sounds are distant. He is in regular rate and rhythm. I cannot appreciate a murmur rub or gallop. PMI is not displaced. No significant JVD or peripheral edema. No embolic lesions GI Inspection: normal to inspection Palpation: soft and nontender Auscultation: normal bowel sounds Skin General skin exam: no rashes or lesions noted Other: His skin is warm and dry normal for ethnicity. The skin on his legs and feet are extremely dry and flaky but there is no evidence of cellulitis Neuro General: patient alert, patient awake, patient oriented x3, moves all extremities and no meningeal signs Cranial Nerves: facial strength normal Speech: abnormal speech other (chronic secondary to previous intracranial hemorrhage) Extrem General: no pedal edema and no calf tenderness Other: The patient has trace pedal edema. No peripheral cyanosis. Psych Appearance: grossly normal Affect: normal affect Objective Last Vital Signs Temp 36.3 C L 01/13/23 07:42 Pulse 67 01/13/23 14:30 Resp 16 01/13/23 14:30 BP 153/65 H 01/13/23 13:01 Pulse Ox 95 01/13/23 14:30 Laboratory Results - last 24 hr 01/12/23 01/13/23 16:05 06:10 WBC 13.10 H RBC 5.17 Hgb 12.0 L Hct 42.5 MCV 82 MCH 23.2 L MCHC 28.2 L RDW 16.6 H Plt Count 292 MPV 9.4 Immature Gran % 0.5 Neutrophils % 63.7 Lymphocytes % 18.4 Monocytes % 9.4 Eosinophils % 7.4 Basophils % 0.6 Nucleated RBC % 0.0 Absolute Neutrophils 8.34 H Absolute Lymphocytes 2.41 Absolute Monocytes 1.23 H Absolute Eosinophils 0.97 H Absolute Basophils 0.08 Troponin I < 50 Time Spent with Patient Time Spent with Patient: 25-34 minutes Time was spent: preparing to see the patient(eg.review tests), obtaining and/or reviewing separately otained hiistory, ordering medications,tests, procedures, referring, communicating with other health health care coach, indepentently interpreting results and counseling the patient
[2023-01-13] MEDS: Budesonide/Formoterol 80/4.5 6.9 GM 60 PUFF INH IH (19:19)
[2023-01-14] VITALS (20 sets, daily range): BP systolic 127–156; BP diastolic 60–113; PULSE 66–90; RESP 4–25; O2SAT 90–96
[2023-01-14] MEDS: Levalbuterol 0.63 MG/3 ML UPD VIAL UPD (05:44)
[2023-01-14 07:17] LABS: Abs Immature Grans 0.05 10^3/uL (0.0-0.06); Absolute Eosinophil Count 0.87 10^3/uL (0.0-0.7); Absolute Lymphocyte Count 2.35 10^3/uL (1.2-3.4); Absolute Neutrophil Count 7.97 10^3/uL (1.2-6.7); Basophils % 0.6; HCT 41.6 % (40.0-50.0); HGB 11.9 g/dL (13.5-17.5); Immature Grans % 0.4; Lymphocytes % 18.9; MCH 23.3 pg (27.0-33.0); MCHC 28.6 % (32.0-36.0); MCV 81 fL (80-95); MPV 9.6 fL (8.0-11.0); Monocytes % 9.1; Platelet Count 301 10^3/uL (130-400); RBC 5.11 10^6/uL (4.36-5.78); RDW 16.3 % (11.8-14.1); RDW-SD 48.6 fL; WBC 12.46 10^3/uL (4.4-10.8)
[2023-01-14 07:19] LABS: Absolute Basophil Count 0.07 10^3/uL (0.0-0.2); Absolute Monocyte Count 1.13 10^3/uL (0.1-0.8)
[2023-01-14 07:33] LABS: Anion Gap 3.3 mmol/L (3-11); BUN 16 mg/dL (7-18); CO2 37.7 mmol/L (21.0-32.0); CREATININE 0.6 mg/dL (0.70-1.30); Calcium 9.1 mg/dL (8.5-10.1); Chloride 100 mmol/L (98-107); Estimated GFR 106.46 (mL/min/1.73m2); Glucose 106 mg/dL (74-106); Sodium 141 mmol/L (136-145)
[2023-01-14] MEDS: Tiotropium Bromide-Respimat 10 PUFF INH 2 PUFF IH (07:49)
[2023-01-14] MEDS: Budesonide/Formoterol 80/4.5 6.9 GM 60 PUFF INH IH (07:49)
[2023-01-14] MEDS: Potassium Chloride 10 MEQ CAPCR 20 MEQ PO (08:12)
[2023-01-14] MEDS: Doxycycline Hyclate 100 MG CAP PO (08:13)
[2023-01-14] MEDS: Aspirin E.C. 81 MG TABEC PO (08:13)
[2023-01-14] MEDS: guaiFENesin 600 MG TABCR PO (08:13)
[2023-01-14] MEDS: dilTIAZem CD 120 MG CAPCR 240 MG PO (08:13)
[2023-01-14] MEDS: Roflumilast 500 MCG TAB PO (08:13)
[2023-01-14] MEDS: Digoxin 0.125 MG TAB PO (08:13)
[2023-01-14] MEDS: Sucralfate 1 GM TAB PO (08:13)
[2023-01-14] MEDS: Omeprazole 20 MG CAPCR PO (08:13)
[2023-01-14] MEDS: Furosemide 20 MG TAB PO (08:14)
--- NOTE | 2023-01-14 09:49 | CMDISCH_ITS ---
Date of service: 01/14/23 Time of Service: 09:52 LACE Index Scoring Tool Questions: Length of Stay (in days): 2 Was the patient admitted via the E.D.?: Yes Comorbidities: Chronic Pulmonary Disease and Metastatic Solid Tumor E.D. Visits: 6 Answers: Total Score: 14 Risk of Readmission: High Risk Care Management Discharge Plan Reason for Hospitalization: Atrial fibrillation with rapid ventricular rate Discharge Plan: Dave will be discharged home when medically cleared by provider with new orders for [facility] RN, home oxygen ([facility]), [facility], and [facility] - Highest needs. He will follow up with his PCP and discharge plan of care as directed. Transport home will either be via private vehicle with his son or [facility] arranged by CM. Patient/Family Education Needs: Review discharge instructions, discuss Ask Me Three. Services Needed at Discharge: Home Delivered Meals ([facility]), Home Health Care Services ([facility], PT, CFC High/Highest ) and Oxygen Therapy ([place] [facility] resumption)
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
== END 2023-01-14 13:15 | disposition home health service (06) ==
LOC: ER 17:41 → ICU 18:02
PROVIDERS: Admitting Provider Family Medicine; Emergency Provider Emergency Medicine Emergency Medical Services; PCP Student in an Organized Health Care Education/Training Program; Visit Provider Family Medicine
DX: I48.0 Paroxysmal atrial fibrillation (principal); J96.11 Chronic respiratory failure with hypoxia; J44.9 Chronic obstructive pulmonary disease, unspecified; Z99.81 Dependence on supplemental oxygen; E78.5 Hyperlipidemia, unspecified; Z79.899 Other long term (current) drug therapy; I25.2 Old myocardial infarction; R07.89 Other chest pain; Z91.148 Patient's other noncompliance with medication regimen for other reason; I69.122 Dysarthria following nontraumatic intracerebral hemorrhage; D72.829 Elevated white blood cell count, unspecified; I27.20 Pulmonary hypertension, unspecified; I25.10 Atherosclerotic heart disease of native coronary artery without angina pectoris; K21.9 Gastro-esophageal reflux disease without esophagitis; F98.8 Other specified behavioral and emotional disorders with onset usually occurring in childhood and adolescence; E55.9 Vitamin D deficiency, unspecified; C34.11 Malignant neoplasm of upper lobe, right bronchus or lung; C79.51 Secondary malignant neoplasm of bone
CPT/HCPCS: 36415; 80048; 80053; 80307; 93005; 94640; 96365; 96366; 96374; 99285; 99291; 71046; 80162; 83735; 83880; 84443; 84484; 85025; 93010; 94664; 94760; 99223; 99232; 99239; J7614; J7620

== ENCOUNTER 2023-01-21 12:47 | Outpatient (CLI) | payer MEDICARE, MEDICAID, SELFPAY | END 2023-01-21 12:48 | disposition home or self-care (01) | PROVIDERS: PCP Student in an Organized Health Care Education/Training Program; Visit Provider Student in an Organized Health Care Education/Training Program | DX: R00.2 Palpitations (principal); R07.9 Chest pain, unspecified | CPT/HCPCS: 93246 ==

== ENCOUNTER 2023-02-10 08:42 | Outpatient (CLI) | payer MEDICARE, MEDICAID, SELFPAY ==
--- NOTE | 2023-02-10 11:49 | W.CARDEVENT ---
Date of service: 02/10/23 Time of Service: 11:50 Cardiac Event Recorder Referring Provider:: Marielena Bates Indications:: Palpitations Cardiac Event Note: This is a cardiac event recorder. Patient was monitored for total of 7 days and 1 hour Predominant rhythm was sinus with an average heart rate of 78. Minimum was 53, maximum 116 There were rare ventricular ectopic beats, very rare couplets, no ventricular tachycardia There were rare atrial premature beats A total of 18 episodes of supraventricular tachycardia occurred. The longest of these was 23 beats in duration Patient appears to be in atrial fibrillation on December 28 for approximately 4 hours and 50 minutes Patient symptoms were reported but had no correlation to any dysrhythmia None off the dysrhythmias noted above were symptomatic
== END 2023-02-10 08:43 | disposition home or self-care (01) ==
LOC: CARDOPNVT 08:42
PROVIDERS: PCP Student in an Organized Health Care Education/Training Program; Visit Provider Internal Medicine Cardiovascular Disease
DX: I47.1 Supraventricular tachycardia (principal); I48.91 Unspecified atrial fibrillation
CPT/HCPCS: 93248

== ENCOUNTER 2023-02-21 11:06 | Emergency (ER) | payer MEDICARE, MEDICAID, SELFPAY ==
--- NOTE | 2023-02-21 11:00 | RT.EKG_ITS ---
APPROVED REPORT Exam: Resting ECG Reason for Exam: Chest pain Patient Location: E HR:72 bpm ECG Measurements Heart Rate 72 AXIS PA 142 P 92 QRSd 79 QRS 73 QT 349 T 51 QTc 383 Conclusion Sinus rhythm...normal P axis, V-rate 60- [address] depression, lateral leads...ST <-0.07mV, I aVL V5 V6 sinus rhythm, normal axis, normal intervals, consider st segment depressions lateral leads
[2023-02-21 11:06] VITALS: BP 145/67; PULSE 79; RESP 18; O2SAT 93
[2023-02-21 11:13] VITALS: RESP 18
[2023-02-21] MEDS: Dexamethasone 10 MG/ML VIAL IVP (11:21)
[2023-02-21 11:22] VITALS: PULSE 69; RESP 1; RESP 18; O2SAT 94
[2023-02-21] MEDS: Ipratropium 0.5 MG/2.5 ML UPD VIAL UPD (11:22)
[2023-02-21 11:23] VITALS: PULSE 69; RESP 1; RESP 18; O2SAT 94
[2023-02-21] MEDS: Levalbuterol 1.25 MG/3 ML UPD VIAL UPD (11:23)
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
[2023-02-21 11:28] LABS: Abs Immature Grans 0.12 10^3/uL (0.0-0.06); Absolute Basophil Count 0.08 10^3/uL (0.0-0.2); Absolute Eosinophil Count 0.75 10^3/uL (0.0-0.7); Absolute Lymphocyte Count 2.38 10^3/uL (1.2-3.4); Absolute Neutrophil Count 8.25 10^3/uL (1.2-6.7); Basophils % 0.6; HCT 41.6 % (40.0-50.0); HGB 12.1 g/dL (13.5-17.5); MCH 23.2 pg (27.0-33.0); MCHC 29.1 % (32.0-36.0); MCV 80 fL (80-95); Monocytes % 7.4; Platelet Count 317 10^3/uL (130-400); RBC 5.21 10^6/uL (4.36-5.78); RDW 15.9 % (11.8-14.1); RDW-SD 45.2 fL
[2023-02-21 11:29] LABS: Absolute Monocyte Count 0.93 10^3/uL (0.1-0.8)
[2023-02-21 11:43] LABS: ALT 28 U/L (16-63); AST 11 U/L (15-37); Albumin 3.8 g/dL (3.4-5.0); Alkaline Phosphatase 152 U/L (46-116); Anion Gap 4.8 mmol/L (3-11); BUN 27 mg/dL (7-18); Bilirubin, Total 0.1 mg/dL (0.2-1.0); CO2 35.2 mmol/L (21.0-32.0); CREATININE 0.7 mg/dL (0.70-1.30); Chloride 104 mmol/L (98-107); Estimated GFR 101.62 (mL/min/1.73m2); Glucose 175 mg/dL (74-106); Potassium 4.4 mmol/L (3.5-5.1); Sodium 144 mmol/L (136-145); Total Protein 7.7 g/dL (6.4-8.2)
--- NOTE | 2023-02-21 12:22 | DI.RAD_ITS ---
Exam(s) XR PORTABLE CHEST AP EXAM: XR PORTABLE CHEST AP CLINICAL HISTORY: sob, hx of copd. TECHNIQUE: 2D digital imaging was performed. COMPARISON: CT CT CHEST PE CTA from 11/24/[address] THORAX ABD/PEL CTA from 11/25/2022 CR XR CHEST 2V PA LATERAL from 11/28/2022 CR,XR XR CHEST 2V PA LATERAL from 01/12/2023 FINDINGS: Single AP portable view. Heart size is upper normal, unchanged.. The mediastinum is not widened. COPD findings again noted. Increased markings in the right lower lobe are noted, this in the region of infiltrate which was seen on the CT scan of 11/25. Mild blunting of the right costophrenic angle noted implying small amount of right pleural fluid. Mi nimal increased markings in left lung base noted. No pulmonary edema IMPRESSION: Mild infiltrate in the right lower lobe but less than was evident in November 2022. However, appears slig htly increased when compared to the most recent chest x-ray of 01/12/2023. DATA REPOSITORY: RADIATION DOSE DELIVERED:
[2023-02-21] MEDS: Azithromycin 250 MG TAB 500 MG PO (13:07)
[2023-02-21] MEDS: Amoxicillin 875/Clav. 125 TAB PO (13:08)
--- NOTE | 2023-02-21 13:08 | NUR.NOTE ---
Nursing Note: patient stood at side of bed to use urinal O2 stats 85% patient sat on stretcher took 4mins to recover to an O2 stat of 92 on 4L via NC. Patient endorsed that this happens at home. Call light within reach of patient at this time
[2023-02-21 14:06] VITALS: BP 161/71; PULSE 81; RESP 16; O2SAT 96
== END 2023-02-21 14:18 | disposition home or self-care (01) ==
PROVIDERS: Emergency Provider Emergency Medicine; PCP Student in an Organized Health Care Education/Training Program
DX: J44.1 Chronic obstructive pulmonary disease with (acute) exacerbation (principal); R06.02 Shortness of breath
CPT/HCPCS: 36415; 80053; 93005; 94640; 96374; 99284; 71045; 85025; 93010; J1100; J7614; J7644

== ENCOUNTER 2023-02-28 11:27 | Emergency (ER) | payer MEDICARE, MEDICAID, SELFPAY ==
[2023-02-28] VITALS (27 sets, daily range): BP systolic 145–164; BP diastolic 57–72; PULSE 79–90; RESP 18; TEMP 37.1; O2SAT 90–96
--- NOTE | 2023-02-28 11:45 | DI.CT_ITS ---
Exam(s) CT CHEST PE CTA EXAM: CT CHEST PE CTA CLINICAL HISTORY: shortness of breath, chest discomfort. TECHNIQUE: Imaging Protocol: Axial CT angiography was performed with multi-slice acquisition and mu lti-planar and/or 3D reconstructions. CONTRAST MATERIAL: Intravenous: Omnipaque 350 contrast volume:100 mL COMPARISON: CT CHEST WITH CONTRAST from 05/09/[address] ABDOMEN PELVIS W from 05/06/[address] THORAX ABD/PEL CTA from 11/25/2022 FINDINGS: The examination is limited due to patient motion artifact. Tracheobronchial tree: There is fluid seen in bronchial branches in the right lower lobe. Pulmonary parenchyma: Emphysematous changes are seen in the lungs. The volume loss in the right lowe r lobe is again seen. There has been improved aeration in the right lung base compared to 11/25/2022. There is a residual infiltrate seen in the right lower lobe. No other focal consolidating infiltra aaron are seen. No architectural distortion. Pulmonary Arteries: No evidence of filling defect to suggest pulmonary emboli. Mediastinum and Radha: No dominant adenopathy or fluid collection. The esophagus is unremarkable. Visualized thyroid gland: Unremarkable. Pleura: No effusion or pneumothorax. Heart: The heart is not dilated. Mild coronary artery calcification. No pericardial effusion. Aorta: Thoracic aorta non-dilated. No evidence of dissection. Atherosclerosis. Upper abdomen: There are multiple splenic masses again seen. The largest is in the superior pole an teriorly and measures 3.3 cm. Soft tissues: Unremarkable. Bones: Within normal limits for the patient's age. IMPRESSION: 1. No evidence of pulmonary embolism, thoracic aortic dissection or aneurysm. 2. Multiple splenic lesions. These are indeterminate. MRI evaluation should be considered for [facility] evaluation. 3. Chronic changes in the lung. Interval improved aeration of the right lung base with residual infi ltrate or scarring in the right lower lobe. No new infiltrates are seen. 4. Findings were discussed with Dr. Coffey at 3:33 p.m. on 02/28/2023. RADIATION DOSE DELIVERED: 504.91mGy.cm Total DLP DATA REPOSITORY: All CT scans at this facility are submitted to the National Radiology Data Registry (NRDR) Dose Index Registry (DIR) with the [employer] (ACR). RADIATION OPTIMIZATION: All CT scans at this facility use at least one of these dose optimization te chniques: automated exposure control; mA and/or kV adjustment per patient size (includes targeted exa ms where dose is matched to clinical indication); or iterative reconstruction.
--- NOTE | 2023-02-28 11:45 | RT.EKG_ITS ---
APPROVED REPORT Exam: Resting ECG Reason for Exam: shortness of breath Patient Location: E HR:81 bpm ECG Measurements Heart Rate 81 AXIS MA 140 P 69 QRSd 91 QRS 71 QT 339 T 62 QTc 394 Conclusion Sinus rhythm...normal P axis, V-rate 60- 99
[2023-02-28 12:20] LABS: Abs Immature Grans 0.25 10^3/uL (0.0-0.06); Absolute Basophil Count 0.08 10^3/uL (0.0-0.2); Absolute Eosinophil Count 0.67 10^3/uL (0.0-0.7); Absolute Lymphocyte Count 2.08 10^3/uL (1.2-3.4); Absolute Monocyte Count 1.25 10^3/uL (0.1-0.8); Absolute Neutrophil Count 9.09 10^3/uL (1.2-6.7); Basophils % 0.6; HCT 40.3 % (40.0-50.0); HGB 11.6 g/dL (13.5-17.5); Immature Grans % 1.9; Lymphocytes % 15.5; MCH 23.3 pg (27.0-33.0); MCHC 28.8 % (32.0-36.0); MCV 81 fL (80-95); MPV 9.1 fL (8.0-11.0); Monocytes % 9.3; Neutrophils % 67.7; Platelet Count 299 10^3/uL (130-400); RBC 4.98 10^6/uL (4.36-5.78); RDW 16.2 % (11.8-14.1); RDW-SD 47.8 fL; WBC 13.43 10^3/uL (4.4-10.8)
[2023-02-28] MEDS: methylPREDNISolone SUCC 125 MG VIAL IVP (12:20)
[2023-02-28] MEDS: Albuterol/Ipratropium 3 ML UPD VIAL UPD (12:20)
[2023-02-28 12:44] LABS: Troponin I < 50 ng/L (<or=60)
[2023-02-28 12:45] LABS: ALT 49 U/L (16-63); AST 16 U/L (15-37); Albumin 3.4 g/dL (3.4-5.0); Alkaline Phosphatase 145 U/L (46-116); Anion Gap 1.6 mmol/L (3-11); BUN 17 mg/dL (7-18); Bilirubin, Total 0.1 mg/dL (0.2-1.0); CO2 39.4 mmol/L (21.0-32.0); CREATININE 0.6 mg/dL (0.70-1.30); Calcium 9.1 mg/dL (8.5-10.1); Chloride 99 mmol/L (98-107); Estimated GFR 106.46 (mL/min/1.73m2); Glucose 127 mg/dL (74-106); NT-proBNP 30 pg/mL (<300); Potassium 4.9 mmol/L (3.5-5.1); Sodium 140 mmol/L (136-145); Total Protein 7.3 g/dL (6.4-8.2)
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
[2023-02-28] MEDS: Normal Saline - Diluent 50 ML VIAL IJ (14:49)
[2023-02-28] MEDS: Omnipaque 350 MG/ML 500 ML BTL-Imaging package IJ (14:49)
[2023-02-28] MEDS: Normal Saline Flush 10 ML SYR IVP (14:49)
[2023-02-28] MEDS: PIPERACILLIN/TAZO 4.5 GM in Normal Saline 100 ML IVPB (15:03)
[2023-02-28 15:07] LABS: Troponin I < 50 ng/L (<or=60)
== END 2023-02-28 16:14 | disposition home or self-care (01) ==
PROVIDERS: Emergency Provider Student in an Organized Health Care Education/Training Program; PCP Student in an Organized Health Care Education/Training Program
DX: J44.1 Chronic obstructive pulmonary disease with (acute) exacerbation (principal)
CPT/HCPCS: 71275; 80053; 93005; 96365; 96375; 99285; 83880; 84484; 85025; 93010; 99284; J2543; J2930; J7620

== ENCOUNTER 2023-03-31 17:45 | Inpatient (IN) | payer MEDICARE, MEDICAID, SELFPAY ==
[2023-03-31] VITALS (54 sets, daily range): BP systolic 145–187; BP diastolic 48–102; PULSE 74–106; RESP 1–33; TEMP 37; O2SAT 86–100
--- NOTE | 2023-03-31 17:30 | RT.EKG_ITS ---
APPROVED REPORT Exam: Resting ECG Reason for Exam: sob Patient Location: E HR:86 bpm ECG Measurements Heart Rate 86 AXIS FL 138 P 78 QRSd 85 QRS 81 QT 330 T 52 QTc 383 Conclusion Sinus rhythm... V-rate 60- [address] depression, diffuse leads...ST <-0.07mV, ant/lat/inf No ST segment or T wave abnormalities to suggest occlusive TN
--- NOTE | 2023-03-31 17:45 | DI.RAD_ITS ---
Exam(s) XR PORTABLE CHEST AP EXAM: XR PORTABLE CHEST AP CLINICAL HISTORY: short of breath TECHNIQUE: 2D digital imaging was performed of the chest. One image was obtained. An AP view was ob tained. COMPARISON: CR XR PORTABLE CHEST AP from 02/21/2023 FINDINGS: MEDIASTINUM: Normal. HEART: Normal. PULMONARY VASCULATURE: Normal. LUNGS: There increased lung markings in the right lung base and the right apex. The left lung is maile ar. PLEURAL SPACE: No pleural effusion or pneumothorax. BONE:Within normal limits for the patient's age. OTHER FINDINGS:Normal. IMPRESSION: Suspected right pulmonary infiltrate. DATA REPOSITORY: RADIATION DOSE DELIVERED:
[2023-03-31 18:12] LABS: Abs Immature Grans 0.12 10^3/uL (0.0-0.06); Absolute Basophil Count 0.08 10^3/uL (0.0-0.2); Absolute Lymphocyte Count 2.44 10^3/uL (1.2-3.4); Absolute Monocyte Count 1.21 10^3/uL (0.1-0.8); Absolute Neutrophil Count 7.31 10^3/uL (1.2-6.7); Basophils % 0.7; Eosinophils % 5.3; HCT 43.5 % (40.0-50.0); HGB 12.3 g/dL (13.5-17.5); Lymphocytes % 20.7; MCH 23.1 pg (27.0-33.0); MCHC 28.3 % (32.0-36.0); MCV 82 fL (80-95); Monocytes % 10.3; Platelet Count 318 10^3/uL (130-400); RBC 5.32 10^6/uL (4.36-5.78); RDW 16.2 % (11.8-14.1); RDW-SD 47.8 fL; WBC 11.79 10^3/uL (4.4-10.8)
[2023-03-31] MEDS: Albuterol/Ipratropium 3 ML UPD VIAL UPD ×2 (18:16→21:06)
[2023-03-31] MEDS: Furosemide 100 MG/10 ML VIAL 80 MG IVP (18:23)
[2023-03-31 18:25] LABS: BE 8 mmol/L (-2-3); HCO3 35 mmol/L (22-26); pH 7.31 (7.35-7.45); pO2 74 mmHg (80-105); sO2 95 % (95-98); tCO2 32 mmol/L (23-27)
[2023-03-31 18:26] LABS: INR 0.9 (0.9-1.1); PTT Activated 26.1 sec (21.5-31.9); Prothrombin Time 9.3 sec (9.3-11.0)
[2023-03-31 18:30] LABS: pCO2 69 mmHg (35-45)
[2023-03-31 18:31] LABS: FIO2 30 %; Site Right Radial
[2023-03-31 18:32] LABS: ALT 25 U/L (16-63); AST 15 U/L (15-37); Albumin 3.8 g/dL (3.4-5.0); Alkaline Phosphatase 139 U/L (46-116); Anion Gap 3.3 mmol/L (3-11); BUN 15 mg/dL (7-18); Bilirubin, Total 0.1 mg/dL (0.2-1.0); CO2 35.7 mmol/L (21.0-32.0); CREATININE 0.7 mg/dL (0.70-1.30); Calcium 9.1 mg/dL (8.5-10.1); Chloride 102 mmol/L (98-107); Estimated GFR 100.99 (mL/min/1.73m2); Glucose 101 mg/dL (74-106); Magnesium 2.1 mg/dL (1.8-2.4); Potassium 4.2 mmol/L (3.5-5.1); Sodium 141 mmol/L (136-145); Total Protein 7.7 g/dL (6.4-8.2); Troponin I < 50 ng/L (<or=60)
[2023-03-31 18:34] LABS: Absolute Eosinophil Count 0.62 10^3/uL (0.0-0.7)
[2023-03-31 18:35] LABS: NT-proBNP 24 pg/mL (<300)
[2023-03-31 18:49] LABS: COVID-19 PCR Negative (Negative); Influenza A PCR Negative (Negative); Influenza B PCR Negative (Negative); RSV PCR Negative (Negative)
[2023-03-31 18:51] LABS: Source Nasopharynx
[2023-03-31 20:03] LABS: BE 10 mmol/L (-2-3); HCO3 36 mmol/L (22-26); pH 7.34 (7.35-7.45); pO2 65 mmHg (80-105); sO2 92 % (95-98); tCO2 33 mmol/L (23-27)
[2023-03-31 20:08] LABS: FIO2 30 %; Site Right Radial
[2023-03-31 20:09] LABS: pCO2 67 mmHg (35-45)
--- NOTE | 2023-03-31 20:22 | DI.VRAD_ITS ---
PROCEDURE INFORMATION: Exam: XR Chest Exam date and time: 03/31/2023 7:46 PM Age: 68 years old Clinical indication: Shortness of breath; Patient HX: SOB TECHNIQUE: Imaging protocol: Radiologic exam of the chest. Views: 1 view. COMPARISON: CR XR PORTABLE CHEST AP 02/21/2023 12:15 PM FINDINGS: Lungs: Mild opacity in the right lung apex concerning for pneumonia. Left lung appears clear. Pleural spaces: Unremarkable. No pleural effusion. No pneumothorax. Heart/Mediastinum: Unremarkable. No cardiomegaly. Bones/joints: Unremarkable. IMPRESSION: Suspected mild right apical infiltrate Dictated and Authenticated by: Marcos Donald MD. Ordering:AMMON Jaimes MD
--- NOTE | 2023-03-31 20:46 | ED.GENADUL_ITS ---
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 Range/Units 03/31/23 03/31/23 03/31/23 17:55 17:55 18:25 WBC (4.4-10.8) 10^3/uL 11.79 H RBC (4.36-5.78) 10^6/uL 5.32 Hgb (13.5-17.5) g/dL 12.3 L Hct (40.0-50.0) % 43.5 MCV (80-95) fL 82 MCH (27.0-33.0) pg 23.1 L MCHC (32.0-36.0) % 28.3 L RDW (11.8-14.1) % 16.2 H Plt Count (130-400) 10^3/uL 318 MPV (8.0-11.0) fL 9.0 Immature Gran % 1.0 Neutrophils % 62.0 Lymphocytes % 20.7 Monocytes % 10.3 Eosinophils % 5.3 Basophils % 0.7 Nucleated RBC % (0.0-0.3) % 0.0 Absolute Neutrophils (1.2-6.7) 10^3/uL 7.31 H Absolute Lymphocytes (1.2-3.4) 10^3/uL 2.44 Absolute Monocytes (0.1-0.8) 10^3/uL 1.21 H Absolute Eosinophils (0.0-0.7) 10^3/uL 0.62 Absolute Basophils (0.0-0.2) 10^3/uL 0.08 PT (9.3-11.0) sec INR (0.9-1.1) APTT (21.5-31.9) sec ABG Sample Site Right Radial ABG pH (7.35-7.45) 7.31 L ABG pCO2 (35-45) mmHg 69 H* ABG pO2 (80-105) mmHg 74 L ABG HCO3 (22-26) mmol/L 35 H ABG Total CO2 (23-27) mmol/L 32 H ABG O2 Saturation (95-98) % 95 ABG Base Excess (-2-3) mmol/L 8 H FiO2 % 30 Sodium (136-145) mmol/L 141 Potassium (3.5-5.1) mmol/L 4.2 Chloride (98-107) mmol/L 102 Carbon Dioxide (21.0-32.0) mmol/L 35.7 H Anion Gap (3-11) mmol/L 3.3 BUN (7-18) mg/dL 15 Creatinine (0.70-1.30) mg/dL 0.7 Est GFR (CKD-EPI 2020) (mL/min/1.73m2) 100.99 Glucose (74-106) mg/dL 101 Calcium (8.5-10.1) mg/dL 9.1 Magnesium (1.8-2.4) mg/dL 2.1 Total Bilirubin (0.2-1.0) mg/dL 0.1 L AST (15-37) U/L 15 ALT (16-63) U/L 25 Alkaline Phosphatase (46-116) U/L 139 H Troponin I (<or=60) ng/L < 50 NT-Pro-B Natriuret Pep (<300) pg/mL Total Protein (6.4-8.2) g/dL 7.7 Albumin (3.4-5.0) g/dL 3.8 COVID-19 Source SARS-CoV-2 (PCR) (Negative) Influenza Type A (PCR) (Negative) Influenza Type B (PCR) (Negative) RSV (PCR) (Negative) Range/Units 03/31/23 19:57 WBC (4.4-10.8) 10^3/uL RBC (4.36-5.78) 10^6/uL Hgb (13.5-17.5) g/dL Hct (40.0-50.0) % MCV (80-95) fL MCH (27.0-33.0) pg MCHC (32.0-36.0) % RDW (11.8-14.1) % Plt Count (130-400) 10^3/uL MPV (8.0-11.0) fL Immature Gran % Neutrophils % Lymphocytes % Monocytes % Eosinophils % Basophils % Nucleated RBC % (0.0-0.3) % Absolute Neutrophils (1.2-6.7) 10^3/uL Absolute Lymphocytes (1.2-3.4) 10^3/uL Absolute Monocytes (0.1-0.8) 10^3/uL Absolute Eosinophils (0.0-0.7) 10^3/uL Absolute Basophils (0.0-0.2) 10^3/uL PT (9.3-11.0) sec INR (0.9-1.1) APTT (21.5-31.9) sec ABG Sample Site Right Radial ABG pH (7.35-7.45) 7.34 L ABG pCO2 (35-45) mmHg 67 H* ABG pO2 (80-105) mmHg 65 L ABG HCO3 (22-26) mmol/L 36 H ABG Total CO2 (23-27) mmol/L 33 H ABG O2 Saturation (95-98) % 92 L ABG Base Excess (-2-3) mmol/L 10 H FiO2 % 30 Sodium (136-145) mmol/L Potassium (3.5-5.1) mmol/L Chloride (98-107) mmol/L Carbon Dioxide (21.0-32.0) mmol/L Anion Gap (3-11) mmol/L BUN (7-18) mg/dL Creatinine (0.70-1.30) mg/dL Est GFR (CKD-EPI 2020) (mL/min/1.73m2) Glucose (74-106) mg/dL Calcium (8.5-10.1) mg/dL Magnesium (1.8-2.4) mg/dL Total Bilirubin (0.2-1.0) mg/dL AST (15-37) U/L ALT (16-63) U/L Alkaline Phosphatase (46-116) U/L Troponin I (<or=60) ng/L NT-Pro-B Natriuret Pep (<300) pg/mL Total Protein (6.4-8.2) g/dL Albumin (3.4-5.0) g/dL COVID-19 Source SARS-CoV-2 (PCR) (Negative) Influenza Type A (PCR) (Negative) Influenza Type B (PCR) (Negative) RSV (PCR) (Negative) Critical Care Time Critical Care Time Critical Care Time: Yes Total Critical Care Time: 32 Attestation: Due to a high probability of clinically significant, life threatening deterioration, the patient required my highest level of preparedness to intervene emergently and I personally spent this critical care time directly and personally managing the patient. This critical care time included obtaining a history; examining the patient; pulse oximetry; ordering and review of studies; arranging urgent treatment with development of a management plan; evaluation of patient's response to treatment; frequent reassessment; and, discussions with other providers. This critical care time was performed to assess and manage the high probability of imminent, life-threatening deterioration that could result in multi-organ failure. It was exclusive of separately billable procedures.
[2023-03-31 21:10] LABS: Troponin I < 50 ng/L (<or=60)
[2023-03-31] MEDS: cefTRIAXone 1 GM/50 ML BAG IVPB (21:16)
[2023-03-31] MEDS: methylPREDNISolone SUCC 125 MG VIAL IVP (21:24)
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
[2023-03-31 22:09] LABS: Lab Add On Test DONE
[2023-03-31 22:45] LABS: Procalcitonin < 0.1 ng/mL
[2023-04-01] VITALS (128 sets, daily range): BP systolic 114–162; BP diastolic 62–92; PULSE 74–107; RESP 4–42; TEMP 36.4–37; O2SAT 86–100
[2023-04-01] MEDS: Sucralfate 1 GM TAB PO ×5 (01:10→19:58)
[2023-04-01] MEDS: Normal Saline Flush 10 ML SYR IVP ×2 (01:10→19:59)
[2023-04-01] MEDS: dilTIAZem CD 120 MG CAPCR 240 MG PO ×3 (01:10→19:58)
[2023-04-01] MEDS: Budesonide/Formoterol 80/4.5 6.9 GM 60 PUFF INH IH ×3 (01:47→20:02)
[2023-04-01] MEDS: DOXYCYCLINE 100 MG in Normal Saline 100 ML IVPB ×2 (01:48→12:09)
[2023-04-01] MEDS: CEFEPIME 2 GM in Normal Saline 100 ML IVPB (05:17)
[2023-04-01] MEDS: Levalbuterol 1.25 MG/3 ML UPD VIAL UPD (06:06)
[2023-04-01] MEDS: Ipratropium 0.5 MG/2.5 ML UPD VIAL 0.25 MG IH ×2 (06:06→19:56)
--- NOTE | 2023-04-01 06:54 | W.PULMCC ---
General Date of Service Date of service: 04/01/23 Time of Service: 06:54 Reason for Admission to ICU: Respiratory failure COPD exacerbation Assessment and Plan Assessment and plan (1) Acute exacerbation of chronic obstructive pulmonary disease (COPD): Status: Acute (2) Respiratory failure with hypoxia and hypercapnia: Status: Acute (3) Leukocytosis: Status: Acute (4) Hypertension: Status: Chronic (5) Pulmonary hypertension: Status: Chronic (6) Paroxysmal atrial fibrillation: Status: Chronic Assessment and plan: This is a 68 yo with end stage COPD on O2 and Trilogy ventilation who is admitted for a COPD exacerbation. His quick recovery is not overly consistent with a classic COPD exacerbation, so I do wonder about a possible arrythmia based process. Regardless I do think it is appropriate to treat him for a COPD exacerbation. I think it is also a good idea to get the echo today to assess the pulmonary hypertension. His procalcitonin is low, so I do think we can stop the cefepime, but I would continue the doxycycline. I do not think he requires further ICU care at this time. Recommendations Pulmonary: COPD exacerbation - recommend prednisone 40mg for 5 days, 30mg for 3 days, 20mg for 3 days, 10mg for 3 days, 5mg for 3 days - recommend doxycycline for 5 days total - continue home Symbicort and Spiriva - continue home roflumlilast - I will arrange f/u with me as an outpatient Chronic hypoxic and hypercapnic respiratory failure - continue home supplemental O2 - continue home Trilogy vent at night and with naps Pulmonary Hypertension - scheduled for echo today Cardiac: Paroxysmal A. fib - continue home meds Renal: No acute concerns I&O: Intake & Output 03/29/23 03/30/23 03/31/23 04/01/23 23:59 23:59 23:59 23:59 Intake Total 50 / 50 40 / 40 Output Total 100 / 100 Balance 50 / 50 -60 / -60 Weight 89.1 kg 89.1 kg Daily Fluid Goal:: even GI Nutrition: Ok for diet Infectious Disease: Possible Pneumonia - negative procal - baseline respiratory symptoms - can discontinue cefepime - continue doxycycline for 5 days Hematologic: Leukocytosis - reactive Neurologic: No acute concerns Endocrine: No acute concerns Lines: PIV Prophylaxis: Protonix Lovenox Code Status: Resuscitation Status Full Code Subjective Critical and life-threatening events over the past 24 hours: This is a chronically ill 68 yo with end stage COPD, who has not been attending his outpatient pulmonary visits and who now is admitted for a COPD exacerbation likely due to a pneumonia. His CXR does show a right sided infiltrate and I agree with cefepime and doxycycline. He has a negative MRSA screen from November. He is on a Trilogy ventilator as an outpatient. He is on maximal therapy for COPD including ICS/LABA/LAMA and roflumilast. He has met with palliative care in the past and they have been consulted, which is appropriate. He did wear BiPAP overnight, although I think his blood gases represent his chronic respiratory failure and less of an acute hypercapnic process. He is feeling much better today. Respiratory boyer he is feeling back to his normal. He is not coughing or producing more mucus than his baseline. Exam Narrative Exam Narrative: Gen: NAD, normal respiratory effort, well-nourished HENT: PERRL, No LAD or JVD Chest: No respiratory distress, normal appearance of chest, clear to auscultation bilaterally, no crackles or wheezes, normal inspiratory effort Heart: regular rate and rhythym, no murmurs, rubs or gallops Abdomen: Non-distended, soft, non tender Extremities: No clubbing, + edema, no cyanosis, no rashes Neuro: AAOx3 , non focal Psych: cooperative, appropriate mental affect Most Recent VS/Results Last Vital Signs Temp 37.0 C 03/31/23 23:50 Pulse 78 04/01/23 06:06 Resp 15 04/01/23 06:06 BP 144/79 H 04/01/23 02:46 Pulse Ox 96 04/01/23 06:06 Laboratory Results - last 24 hr 03/31/23 03/31/23 03/31/23 17:55 17:55 17:55 WBC RBC Hgb Hct MCV MCH MCHC RDW Plt Count MPV Immature Gran % Neutrophils % Lymphocytes % Monocytes % Eosinophils % Basophils % Nucleated RBC % Absolute Neutrophils Absolute Lymphocytes Absolute Monocytes Absolute Eosinophils Absolute Basophils PT 9.3 INR 0.9 APTT 26.1 ABG Sample Site ABG pH ABG pCO2 ABG pO2 ABG HCO3 ABG Total CO2 ABG O2 Saturation ABG Base Excess FiO2 Sodium Potassium Chloride Carbon Dioxide Anion Gap BUN Creatinine Est GFR (CKD-EPI 2020) Glucose Calcium Magnesium Total Bilirubin AST ALT Alkaline Phosphatase Troponin I NT-Pro-B Natriuret Pep 24 Total Protein Albumin Procalcitonin COVID-19 Source Nasopharynx SARS-CoV-2 (PCR) Negative Influenza Type A (PCR) Negative Influenza Type B (PCR) Negative RSV (PCR) Negative Add-On Test Request 03/31/23 03/31/23 03/31/23 17:55 17:55 18:25 WBC 11.79 H RBC 5.32 Hgb 12.3 L Hct 43.5 MCV 82 MCH 23.1 L MCHC 28.3 L RDW 16.2 H Plt Count 318 MPV 9.0 Immature Gran % 1.0 Neutrophils % 62.0 Lymphocytes % 20.7 Monocytes % 10.3 Eosinophils % 5.3 Basophils % 0.7 Nucleated RBC % 0.0 Absolute Neutrophils 7.31 H Absolute Lymphocytes 2.44 Absolute Monocytes 1.21 H Absolute Eosinophils 0.62 Absolute Basophils 0.08 PT INR APTT ABG Sample Site Right Radial ABG pH 7.31 L ABG pCO2 69 H* ABG pO2 74 L ABG HCO3 35 H ABG Total CO2 32 H ABG O2 Saturation 95 ABG Base Excess 8 H FiO2 30 Sodium 141 Potassium 4.2 Chloride 102 Carbon Dioxide 35.7 H Anion Gap 3.3 BUN 15 Creatinine 0.7 Est GFR (CKD-EPI 2020) 100.99 Glucose 101 Calcium 9.1 Magnesium 2.1 Total Bilirubin 0.1 L AST 15 ALT 25 Alkaline Phosphatase 139 H Troponin I < 50 NT-Pro-B Natriuret Pep Total Protein 7.7 Albumin 3.8 Procalcitonin COVID-19 Source SARS-CoV-2 (PCR) Influenza Type A (PCR) Influenza Type B (PCR) RSV (PCR) Add-On Test Request 03/31/23 03/31/23 03/31/23 19:57 20:47 20:47 WBC RBC Hgb Hct MCV MCH MCHC RDW Plt Count MPV Immature Gran % Neutrophils % Lymphocytes % Monocytes % Eosinophils % Basophils % Nucleated RBC % Absolute Neutrophils Absolute Lymphocytes Absolute Monocytes Absolute Eosinophils Absolute Basophils PT INR APTT ABG Sample Site Right Radial ABG pH 7.34 L ABG pCO2 67 H* ABG pO2 65 L ABG HCO3 36 H ABG Total CO2 33 H ABG O2 Saturation 92 L ABG Base Excess 10 H FiO2 30 Sodium Potassium Chloride Carbon Dioxide Anion Gap BUN Creatinine Est GFR (CKD-EPI 2020) Glucose Calcium Magnesium Total Bilirubin AST ALT Alkaline Phosphatase Troponin I < 50 NT-Pro-B Natriuret Pep Total Protein Albumin Procalcitonin < 0.1 COVID-19 Source SARS-CoV-2 (PCR) Influenza Type A (PCR) Influenza Type B (PCR) RSV (PCR) Add-On Test Request 03/31/23 22:08 WBC RBC Hgb Hct MCV MCH MCHC RDW Plt Count MPV Immature Gran % Neutrophils % Lymphocytes % Monocytes % Eosinophils % Basophils % Nucleated RBC % Absolute Neutrophils Absolute Lymphocytes Absolute Monocytes Absolute Eosinophils Absolute Basophils PT INR APTT ABG Sample Site ABG pH ABG pCO2 ABG pO2 ABG HCO3 ABG Total CO2 ABG O2 Saturation ABG Base Excess FiO2 Sodium Potassium Chloride Carbon Dioxide Anion Gap BUN Creatinine Est GFR (CKD-EPI 2020) Glucose Calcium Magnesium Total Bilirubin AST ALT Alkaline Phosphatase Troponin I NT-Pro-B Natriuret Pep Total Protein Albumin Procalcitonin COVID-19 Source SARS-CoV-2 (PCR) Influenza Type A (PCR) Influenza Type B (PCR) RSV (PCR) Add-On Test Request DONE Review of Systems All systems reviewed & are unremarkable except as noted in HPI and below Time spent with patient Time spent in Critical Care: 45 Time spent in Critical care included: Chart review, Documenting critically ill care, Time at immediate bedside and Discussing critically ill care with other medical staff
[2023-04-01 07:43] LABS: Abs Immature Grans 0.09 10^3/uL (0.0-0.06); Absolute Basophil Count 0.04 10^3/uL (0.0-0.2); Absolute Eosinophil Count 0.01 10^3/uL (0.0-0.7); Absolute Lymphocyte Count 0.88 10^3/uL (1.2-3.4); Absolute Monocyte Count 0.06 10^3/uL (0.1-0.8); Absolute Neutrophil Count 11.47 10^3/uL (1.2-6.7); Basophils % 0.3; Eosinophils % 0.1; HCT 42.3 % (40.0-50.0); HGB 12.3 g/dL (13.5-17.5); Immature Grans % 0.7; MCH 23.3 pg (27.0-33.0); MCHC 29.1 % (32.0-36.0); MCV 80 fL (80-95); MPV 9.3 fL (8.0-11.0); Monocytes % 0.5; Neutrophils % 91.4; Platelet Count 309 10^3/uL (130-400); RBC 5.28 10^6/uL (4.36-5.78); RDW 16.1 % (11.8-14.1); RDW-SD 46.7 fL; WBC 12.55 10^3/uL (4.4-10.8)
[2023-04-01 07:57] LABS: Anion Gap 6.1 mmol/L (3-11); BUN 16 mg/dL (7-18); CO2 33.9 mmol/L (21.0-32.0); CREATININE 0.7 mg/dL (0.70-1.30); Calcium 9.2 mg/dL (8.5-10.1); Chloride 99 mmol/L (98-107); Estimated GFR 100.99 (mL/min/1.73m2); Glucose 172 mg/dL (74-106); Magnesium 1.8 mg/dL (1.8-2.4); Potassium 4.2 mmol/L (3.5-5.1); Sodium 139 mmol/L (136-145)
[2023-04-01 08:01] LABS: Digoxin 0.38 ng/mL (0.90-2.00)
[2023-04-01] MEDS: guaiFENesin 600 MG TABCR PO ×2 (08:01→19:58)
[2023-04-01] MEDS: Digoxin 0.125 MG TAB PO (08:01)
[2023-04-01] MEDS: Enoxaparin 40 MG/0.4 ML SYR SC (08:01)
[2023-04-01] MEDS: Aspirin E.C. 81 MG TABEC PO (08:01)
[2023-04-01] MEDS: Furosemide 20 MG TAB PO (08:02)
[2023-04-01] MEDS: Pantoprazole 40 MG TABCR PO (08:02)
[2023-04-01] MEDS: Ascorbic Acid 500 MG TAB PO (08:02)
[2023-04-01] MEDS: Potassium Chloride 20 MEQ TABCR PO (08:02)
[2023-04-01] MEDS: predniSONE 20 MG TAB 40 MG PO (08:02)
[2023-04-01] MEDS: Roflumilast 500 MCG TAB PO (08:02)
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
--- NOTE | 2023-04-01 14:28 | DI.US_ITS ---
APPROVED REPORT EXAM: Comprehensive 2D, Doppler, and color-flow Echocardiogram Patient Location: In-Patient Room/Bed: [id number] Chief Engineer Drilling And Recovery: Julissa Hayward RDCS (AE) Indications: Pulmonary HTN, Paroxysmal A Fib Other Information Study Quality: Fair. Technically limited study due to body habitus. Conclusion Normal left ventricular wall thickness and chamber size. Ejection fraction is 55%. Wall motion is n ormal. There is stage I diastolic dysfunction Normal right ventricular size and systolic function Both atria are normal in size There is no structural or hemodynamically significant valvular disease Right ventricular systolic pressure could not be estimated Wall motion Left Ventricle The left ventricle is normal size. The overall left ventricular systolic function appears normal. The re is normal left ventricular wall thickness. There is normal LV segmental wall motion. There is no v entricular septal defect visualized. LVEF is 55%. Right Ventricle Right ventricle is grossly normal in size. Right ventricular systolic function is grossly normal. Atria The left atrium size is normal. The right atrium size is normal. The interatrial septum is intact wit h no evidence for an atrial septal defect. Aortic Valve The aortic valve is normal in structure. Aortic valve is trileaflet. There is no aortic valvular sten osis. No aortic regurgitation is present. Mitral Valve The mitral valve is normal in structure. No evidence of mitral valve stenosis. Trace mitral regurgita tion. Tricuspid Valve The tricuspid valve is normal in structure. There is no tricuspid valve stenosis. Trace tricuspid reg urgitation. Unable to assess PA pressure. Pulmonic Valve Pulmonic valve is not well visualized. There is no pulmonic valvular stenosis. There is no pulmonic v alvular regurgitation. Great Vessels The aortic root is normal in size. Ascending aorta is not well visualized Aortic arch is not well vis ualized. IVC is normal in size and collapses >50% with inspiration. Pericardium There is no pericardial effusion. 2D Dimensions IVSD d PLAX 0.97 cm M: 0.6-1.2 Ao Root d 3.72 cm M: 3.1 - 3.7 LVPW d PLAX 0.99 cm M: 0.6 - 1.2 LVID d PLAX 5.15 cm M: 4.2 - 5.8 LVDs 3.82 cm M: 2.5 - 4.0 LV EF Teichholz 50.5 % FS 25.87 % LV EDV (Teich) 126.4 mL LV ESV (Teich) 62.5 mL M-Mode TAPSE 2.59 cm (M/F) >1.7 Auto EF LV EDV A4C 163.0 mL LV EDV A2C 147.9 mL LV EDV BP LV ESV A4C 79.2 mL LV ESV A2C 71.3 mL LV ESV BP LVEF(%) A4C 51.4 % LVEF(%) A2C 51.8 % LVEF(%) BP LV SV A4C 83.8 ml LV SV A2C 76.6 ml LV SV BP LV CO A4C 6.7 L/min LV CO A2C 6.1 L/min LV CO BP HR A4C 79.79 BPM HR A2C 79.30 BPM LV EDV Index (BP) LA Volume LA Length A4C 5.4 cm LA Length A2C 6.3 cm LA Area A4C s 13.19 cm2 LA Area A2C s 25.00 cm2 LA Vol A4C A-L 27.58 mL LA Vol A2C A-L 84.30 mL LA Vol Biplane A-L 52.3 mL LA Vol/BSA A4C A-L LA Vol/BSA A2C A-L LA Vol/BSA BP A-L 25.0 mL/m2 LA Vol A4C MOD 26.5 mL LA Vol A2C MOD 79.2 mL LA Vol BP MOD 48.7 mL RA Volume RA Area A4C 11.4 cm2 RA ESV A4C (A-L) 28.6mL RA Vol/BSA A4C A-L RA Length A4C 3.9 cm RA ESV A4C (MOD) 26.9mL LV Diastology MV E' medial 0.118 (>0.07 m/s) MV E Vmax 0.74 (0.4-1.3 m/s) MV E/E' MED 6.22 (<14) MV A Vmax 0.75 (0.4-1.3 m/s) MV E' lateral 0.129 (>0.1 m/s) E/A Ratio 1.0 MV E/E' LAT 5.71 (<14) MV E' Average 0.124 m/s MV E/E'(average) 5.96 Aortic Valve AoV Vmax 1.27 m/s LVOT Vmax 1.17 m/s AoV Peak Grad 6.5 mmHg LVOT Peak Grad 5.5 mmHg AoV Area (Vmax) 3.56 cm2 LVOT VTI 0.214 m AoV VTI 0.260 m LVOT Mean Grad 3.2 mmHg AoV Mean Faisal. 0.95 m/s LVOT SV 82.87 mL AoV Mean Grad 4.0 mmHg LVOT Diam s 2.20 cm AoV Area (VTI) 3.19 cm2 Velocity Ratio 0.92 Mitral Valve MV DT 304 (160-240 msec) MV Vmax TIPS 0.87 m/s MV Mean Grad 1.4 (<2mmHg) MV VTI 0.268 m Pulmonary Valve PV Vmax 1.27 (0.5-1.5 m/s) RVOT Vmax 1.00 m/s PV Peak Grad 6.5 mmHg RVOT Peak Gr. 4.0 mmHg PV Mean Faisal 0.90 m/s RVOT VTI 0.161 m PV Mean Grad 3.5 mmHg RVOT Mean Gr. 2.2 mmHg Tricuspid Valve TV S' 0.21 m/s
--- NOTE | 2023-04-01 17:40 | PGE_ITS ---
Date of Service Date of service: 04/01/23 Time of Service: 17:44 Assessment and Plan Assessment and plan (1) Acute on chronic respiratory failure with hypoxia and hypercapnia: Assessment and plan: Due to a COPD exacerbation with a question of underlying pneumonia. Procalcitonin is neg. He does have a hx of pseudomonas; cont cefepime and doxy. Continue scheduled + prn nebs, steroids, symbicort, daliresp, mucinex. Covid negative. blood cxs pending. Obtain sputum culture, urine for strep and legionella Antigens, sputum for mycoplasma. Monitor on BiPAP vs trilogy. Encourage pulmonary toilet. C/s palliative care. (2) Acute exacerbation of chronic obstructive pulmonary disease (COPD): Status: Acute Assessment and plan: As above Stablized and now at baseline status. (3) Hypertension: Status: Chronic Assessment and plan: Continue home therapy. (4) Paroxysmal atrial fibrillation: Status: Chronic Assessment and plan: Not on anticoagulation. Continue cardizem and digoxin. Digoxin 0.46; has been low with previous levels. (5) Pulmonary hypertension: Status: Chronic Assessment and plan: Continue home furosemide. Echo with normal EF. Stage 1 diastolic dysfunction. Monitor volume status, daily weights, I/O's. (6) DVT prophylaxis: Status: Acute Assessment and plan: Sc enoxaparin (7) Discharge planning issues: Status: Acute Assessment and plan: Full code C/s PT C/s palliative care Admitted to ICU but now med-surg status. Subjective Subjective Patient reports: no new complaints, feels better and afebrile; denies nausea or vomiting Exam Narrative Exam Narrative: General: Pleasant middle-aged male who is A&Ox3, appears to be at his baseline mental statusgained weight since I have last seen him Neurological: A&Ox3, baseline speech impediment Psychiatric: Affect appropriate. Skin: Visible skin intact HEENT: sclera clear, MMM Cardiovascular: RRR, no murmur Lungs: Diminished breath sounds B. Clear. Gastrointestinal: soft, nontender, nondistended Extremities: +1 edema BLEs, RLE>L, no c/c Objective Last Vital Signs Temp 36.9 C 04/01/23 12:00 Pulse 85 04/01/23 14:29 Resp 20 04/01/23 14:50 BP 158/75 H 04/01/23 14:29 Pulse Ox 97 04/01/23 14:50 Laboratory Results - last 24 hr 03/31/23 03/31/23 03/31/23 17:55 17:55 17:55 WBC RBC Hgb Hct MCV MCH MCHC RDW Plt Count MPV Immature Gran % Neutrophils % Lymphocytes % Monocytes % Eosinophils % Basophils % Nucleated RBC % Absolute Neutrophils Absolute Lymphocytes Absolute Monocytes Absolute Eosinophils Absolute Basophils PT 9.3 INR 0.9 APTT 26.1 ABG Sample Site ABG pH ABG pCO2 ABG pO2 ABG HCO3 ABG Total CO2 ABG O2 Saturation ABG Base Excess FiO2 Sodium Potassium Chloride Carbon Dioxide Anion Gap BUN Creatinine Est GFR (CKD-EPI 2020) Glucose Calcium Magnesium Total Bilirubin AST ALT Alkaline Phosphatase Troponin I NT-Pro-B Natriuret Pep 24 Total Protein Albumin Procalcitonin Digoxin COVID-19 Source Nasopharynx SARS-CoV-2 (PCR) Negative Influenza Type A (PCR) Negative Influenza Type B (PCR) Negative RSV (PCR) Negative Add-On Test Request 03/31/23 03/31/23 03/31/23 17:55 17:55 18:25 WBC 11.79 H RBC 5.32 Hgb 12.3 L Hct 43.5 MCV 82 MCH 23.1 L MCHC 28.3 L RDW 16.2 H Plt Count 318 MPV 9.0 Immature Gran % 1.0 Neutrophils % 62.0 Lymphocytes % 20.7 Monocytes % 10.3 Eosinophils % 5.3 Basophils % 0.7 Nucleated RBC % 0.0 Absolute Neutrophils 7.31 H Absolute Lymphocytes 2.44 Absolute Monocytes 1.21 H Absolute Eosinophils 0.62 Absolute Basophils 0.08 PT INR APTT ABG Sample Site Right Radial ABG pH 7.31 L ABG pCO2 69 H* ABG pO2 74 L ABG HCO3 35 H ABG Total CO2 32 H ABG O2 Saturation 95 ABG Base Excess 8 H FiO2 30 Sodium 141 Potassium 4.2 Chloride 102 Carbon Dioxide 35.7 H Anion Gap 3.3 BUN 15 Creatinine 0.7 Est GFR (CKD-EPI 2020) 100.99 Glucose 101 Calcium 9.1 Magnesium 2.1 Total Bilirubin 0.1 L AST 15 ALT 25 Alkaline Phosphatase 139 H Troponin I < 50 NT-Pro-B Natriuret Pep Total Protein 7.7 Albumin 3.8 Procalcitonin Digoxin COVID-19 Source SARS-CoV-2 (PCR) Influenza Type A (PCR) Influenza Type B (PCR) RSV (PCR) Add-On Test Request 03/31/23 03/31/23 03/31/23 19:57 20:47 20:47 WBC RBC Hgb Hct MCV MCH MCHC RDW Plt Count MPV Immature Gran % Neutrophils % Lymphocytes % Monocytes % Eosinophils % Basophils % Nucleated RBC % Absolute Neutrophils Absolute Lymphocytes Absolute Monocytes Absolute Eosinophils Absolute Basophils PT INR APTT ABG Sample Site Right Radial ABG pH 7.34 L ABG pCO2 67 H* ABG pO2 65 L ABG HCO3 36 H ABG Total CO2 33 H ABG O2 Saturation 92 L ABG Base Excess 10 H FiO2 30 Sodium Potassium Chloride Carbon Dioxide Anion Gap BUN Creatinine Est GFR (CKD-EPI 2020) Glucose Calcium Magnesium Total Bilirubin AST ALT Alkaline Phosphatase Troponin I < 50 NT-Pro-B Natriuret Pep Total Protein Albumin Procalcitonin < 0.1 Digoxin COVID-19 Source SARS-CoV-2 (PCR) Influenza Type A (PCR) Influenza Type B (PCR) RSV (PCR) Add-On Test Request 03/31/23 04/01/23 04/01/23 22:08 07:01 07:01 WBC 12.55 H RBC 5.28 Hgb 12.3 L Hct 42.3 MCV 80 MCH 23.3 L MCHC 29.1 L RDW 16.1 H Plt Count 309 MPV 9.3 Immature Gran % 0.7 Neutrophils % 91.4 Lymphocytes % 7.0 Monocytes % 0.5 Eosinophils % 0.1 Basophils % 0.3 Nucleated RBC % 0.0 Absolute Neutrophils 11.47 H Absolute Lymphocytes 0.88 L Absolute Monocytes 0.06 L Absolute Eosinophils 0.01 Absolute Basophils 0.04 PT INR APTT ABG Sample Site ABG pH ABG pCO2 ABG pO2 ABG HCO3 ABG Total CO2 ABG O2 Saturation ABG Base Excess FiO2 Sodium 139 Potassium 4.2 Chloride 99 Carbon Dioxide 33.9 H Anion Gap 6.1 BUN 16 Creatinine 0.7 Est GFR (CKD-EPI 2020) 100.99 Glucose 172 H Calcium 9.2 Magnesium 1.8 Total Bilirubin AST ALT Alkaline Phosphatase Troponin I NT-Pro-B Natriuret Pep Total Protein Albumin Procalcitonin Digoxin COVID-19 Source SARS-CoV-2 (PCR) Influenza Type A (PCR) Influenza Type B (PCR) RSV (PCR) Add-On Test Request DONE 04/01/23 07:01 WBC RBC Hgb Hct MCV MCH MCHC RDW Plt Count MPV Immature Gran % Neutrophils % Lymphocytes % Monocytes % Eosinophils % Basophils % Nucleated RBC % Absolute Neutrophils Absolute Lymphocytes Absolute Monocytes Absolute Eosinophils Absolute Basophils PT INR APTT ABG Sample Site ABG pH ABG pCO2 ABG pO2 ABG HCO3 ABG Total CO2 ABG O2 Saturation ABG Base Excess FiO2 Sodium Potassium Chloride Carbon Dioxide Anion Gap BUN Creatinine Est GFR (CKD-EPI 2020) Glucose Calcium Magnesium Total Bilirubin AST ALT Alkaline Phosphatase Troponin I NT-Pro-B Natriuret Pep Total Protein Albumin Procalcitonin Digoxin 0.38 L COVID-19 Source SARS-CoV-2 (PCR) Influenza Type A (PCR) Influenza Type B (PCR) RSV (PCR) Add-On Test Request Time Spent with Patient Time Spent with Patient: 25-34 minutes Time was spent: preparing to see the patient(eg.review tests), obtaining and/or reviewing separately otained hiistory, ordering medications,tests, procedures, referring, communicating with other health specialist wound care, indepentently interpreting results, counseling the patient and care coordination
--- NOTE | 2023-04-01 18:40 | NUR.NOTE ---
Spoke to Sandy lugo Nursing Note:
[2023-04-01 23:05] LABS: Legionella Ag Detection Urine Negative (Negative)
[2023-04-02] MEDS: DOXYCYCLINE 100 MG in Normal Saline 100 ML IVPB (01:02)
[2023-04-02 07:13] LABS: Abs Immature Grans 0.18 10^3/uL (0.0-0.06); HCT 41.5 % (40.0-50.0); HGB 12.2 g/dL (13.5-17.5); MCH 23.2 pg (27.0-33.0); MCHC 29.4 % (32.0-36.0); MCV 79 fL (80-95); MPV 9.3 fL (8.0-11.0); Platelet Count 324 10^3/uL (130-400); RBC 5.25 10^6/uL (4.36-5.78); RDW 16.3 % (11.8-14.1); RDW-SD 46.1 fL; WBC 17.43 10^3/uL (4.4-10.8)
[2023-04-02 07:36] LABS: Absolute Lymphocyte Count 2.61 10^3/uL (1.2-3.4); Absolute Monocyte Count 1.57 10^3/uL (0.1-0.8); Absolute Neutrophil Count 13.25 10^3/uL (1.2-6.7); Atypical Lymphocytes % 4; Bands % 0
[2023-04-02 07:37] LABS: Diff Comment Manual Differential; RBC Morphology Normal
[2023-04-02 07:47] VITALS: BP 172/90; PULSE 71; TEMP 36; O2SAT 98
[2023-04-02 07:59] VITALS: O2SAT 96
--- NOTE | 2023-04-02 08:00 | DI.US_ITS ---
Exam(s) US EXTREMITY VENOUS BI EXAM: US EXTREMITY VENOUS BI CLINICAL HISTORY: asymmetric edema BLEs. TECHNIQUE: Bilateral lower extremity venous ultrasound performed using grayscale, color-flow, and sp ectral Doppler analysis. COMPARISON: US US EXTREMITY VENOUS BI from 05/08/2020 FINDINGS: The right common femoral, femoral and popliteal veins demonstrate normal compressibility, augmentatio n, and color Doppler. The posterior tibial and peroneal veins are patent. The saphenofemoral junctio n is unremarkable. There is no evidence of a Cruz's cyst. The soft tissues are unremarkable. The left common femoral, femoral and popliteal veins demonstrate normal compressibility, augmentation , and color Doppler. The posterior tibial and peroneal veins are patent. The saphenofemoral junction is unremarkable. There is no evidence of a Cruz's cyst. The soft tissues are unremarkable. IMPRESSION: 1. No evidence of a right lower extremity DVT. 2. No evidence of a left lower extremity DVT. DATA REPOSITORY:
[2023-04-02] MEDS: Ascorbic Acid 500 MG TAB PO (08:03)
[2023-04-02] MEDS: predniSONE 20 MG TAB 40 MG PO (08:03)
[2023-04-02] MEDS: guaiFENesin 600 MG TABCR PO (08:03)
[2023-04-02] MEDS: Furosemide 20 MG TAB PO (08:03)
[2023-04-02] MEDS: Sucralfate 1 GM TAB PO (08:03)
[2023-04-02 08:04] VITALS: PULSE 71
[2023-04-02] MEDS: Potassium Chloride 20 MEQ TABCR PO (08:04)
[2023-04-02] MEDS: Pantoprazole 40 MG TABCR PO (08:04)
[2023-04-02] MEDS: Digoxin 0.125 MG TAB PO (08:04)
[2023-04-02] MEDS: dilTIAZem CD 120 MG CAPCR 240 MG PO (08:04)
[2023-04-02] MEDS: Roflumilast 500 MCG TAB PO (08:04)
[2023-04-02] MEDS: Aspirin E.C. 81 MG TABEC PO (08:04)
[2023-04-02] MEDS: Enoxaparin 40 MG/0.4 ML SYR SC (08:05)
[2023-04-02] MEDS: Budesonide/Formoterol 80/4.5 6.9 GM 60 PUFF INH IH (09:02)
[2023-04-02] MEDS: Tiotropium Bromide-Respimat 10 PUFF INH 2 PUFF IH (09:03)
[2023-04-02 09:09] VITALS: O2SAT 95
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
--- NOTE | 2023-04-02 10:11 | PDOC.CMDIS ---
Date of service: 04/02/23 Time of Service: 10:12 LACE Index Scoring Tool Questions: Length of Stay (in days): 2 Was the patient admitted via the E.D.?: Yes Comorbidities: Previous M.I., Cerebrovascular Disease, Chronic Pulmonary Disease and Metastatic Solid Tumor E.D. Visits: 8 Answers: Total Score: 14 Risk of Readmission: High Risk Care Management Discharge Plan Reason for Hospitalization: acute on chronic respiratory failure Discharge Plan: Dave will discharge home with a resumption of home health nursing as well as his community supports through [employer]. He will follow up with his PCP and plan of care and transport via private vehicle with Lesly. Patient/Family Education Needs: Review of discharge instructions, limitations, activity, follow up plan, discuss Ask Me Three Services Needed at Discharge: Home Health Care Services and Homemaking Services
--- NOTE | 2023-04-02 10:39 | PTTR_ITS ---
Date of service: 04/02/23 Time of Service: 10:45 PT Notes Visit Reasons: Acute exacerbation of COPD,Pneumonia,Resp failure Inpatient Physical Therapy Treatment Note [facility] Date: 04/02/23 PRECAUTIONS: Fall, standard, activity as tolerated. SUBJECTIVE: Patient reports not feeling that great, getting ready for discharge OBJECTIVE: Patient supine in bed, agreeable to therapy. Significant other arrives very soon after start of therapy, is visibly upset that patient isn't totally ready for discharge when she arrives.? PAIN: none reported VITALS: monitored by nursing staff? BED MOBILITY/TRANSFERS? Rolling L/R: min assist of one Supine-sit: min assist of one by hand hold ? Sit-supine: not assessed? Sit-stand: CGA ? Stand-sit: SBA? Bed-Chair: CGA ? Chair-bed: CGA ? Therapeutic Exercises: Direct one-on-one instruction in therapeutic exercises to develop strength, endurance, range of motion and flexibility. ? Exercises: HEP prepared and reviewed with patient. Access Code: [email or web address] URL: [email or web address] Date: 04/02/2023 Prepared by: Kay Newton Exercises - Lateral Costal Breathing with Shoulder Abduction - 1 x daily - 7 x weekly - 3 sets - 10 reps - TL Sidebending Stretch - Single Arm Overhead - 1 x daily - 7 x weekly - 3 sets - 10 reps - First Rib Mobilization with Strap - 1 x daily - 7 x weekly - 3 sets - 10 reps Neuromuscular Re-education ([id number]): Activities that facilitate re-education of movement balance, posture, coordination, and proprioception or kinesthetic sense, requiring skilled tactile and verbal cues ? Exercises/techniques: Coached on pursed lip breathing, full long exhalation. Practiced pursed lip breathing in supine, during bed mobility, transferring to chair. ASSESSMENT:? Patient tolerates therapy well. Eager to get home. PLAN: Continue global strengthening per plan of care until patient is medically cleared for discharge. TREATMENT CODE/TIME: 22 minutes beginning at 10:57
[2023-04-03 16:56] LABS: Streptococcus Pneumoniae Ag, U Negative (Negative)
--- NOTE | 2023-04-04 14:48 | PDOC.HHF2F ---
Home Health Referral Home Health Orders Clinical synopsis of why skilled professionals are needed: Pt admitted with pneumonia, COPD exacerbation and acute on chronic respiratory failure. Medical diagnosis necessitation home health referral: Pneumonia; treating with antibiotics COPD with exacerbation Registered Nurse: Check all that apply Instruct on new or changed medication(s)/assess compliance: Ordered Assess for exacerbation of medical condition, instruct patient/caregivers on signs and symptoms to report for early detection: Ordered Sand Molder: Other: Has mattress spring encaser Home Bound Status Requires the aid of supportive device (check all that apply): Walker Patient has a condition such that leaving home is medically contraindicated (Describe): requires oxygen 100% of the time, 27/01 Describe why leaving home would require a considerable and taxing effort: Requires frequent rest periods Encounter Date and Reason: I certify that a FTF encounter for this patient was performed on April 04, 2023 and that such encounter was related to the primary reason the patient requires home health services. The encounter was conducted in the following manner: By me as the certifying physician, GRINDER SET UP OPERATOR GEAR TOOL, PA or By an inpatient physician, GRINDER SET UP OPERATOR GEAR TOOL or PA during an inpatient stay who communicated findings to me, Certification And Authentication I certify that I composed the above information based on my clinical judgment relating to this patient's medical condition and, if applicable, clinical findings communicated to me by the NPP or inpatient physician who performed the FTF encounter. Name of Provider that will be monitoring home health services: Nii Fuller
[2023-04-04 16:57] LABS: Mycoplasma Pneumoniae PCR Negative (Negative); Specimen source sputum
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
== END 2023-04-02 11:38 | disposition home or self-care (01) | DRG 193 ==
LOC: ER 22:38 → ICU 04-01 00:13 → MS 04-01 21:07
PROVIDERS: Family Medicine; Admitting Provider Internal Medicine; Emergency Provider Student in an Organized Health Care Education/Training Program; PCP Student in an Organized Health Care Education/Training Program; Visit Provider Internal Medicine
DX: J18.9 Pneumonia, unspecified organism (principal); J96.21 Acute and chronic respiratory failure with hypoxia; J96.22 Acute and chronic respiratory failure with hypercapnia; J44.0 Chronic obstructive pulmonary disease with (acute) lower respiratory infection; I47.1 Supraventricular tachycardia; J44.1 Chronic obstructive pulmonary disease with (acute) exacerbation; I48.0 Paroxysmal atrial fibrillation; I10 Essential (primary) hypertension; I27.20 Pulmonary hypertension, unspecified; I25.10 Atherosclerotic heart disease of native coronary artery without angina pectoris; K21.9 Gastro-esophageal reflux disease without esophagitis; Z99.81 Dependence on supplemental oxygen; E55.9 Vitamin D deficiency, unspecified; D64.9 Anemia, unspecified; E78.5 Hyperlipidemia, unspecified; G31.84 Mild cognitive impairment of uncertain or unknown etiology; Z87.820 Personal history of traumatic brain injury; F22 Delusional disorders; N40.0 Benign prostatic hyperplasia without lower urinary tract symptoms; R47.89 Other speech disturbances; I25.2 Old myocardial infarction; D72.829 Elevated white blood cell count, unspecified
CPT/HCPCS: 36415; 80048; 80053; 82805; 84145; 87040; 87449; 87637; 93005; 93306; 94640; 96375; 96376; 97112; 97162; 97530; 99285; 99291; J1650; 36600; 71045; 80162; 83735; 83880; 84484; 85025; 85610; 85730; 87070; 87205; 87581; 87899; 93010; 93970; 94660; 94664; 94668; 94760; 99232; 99239; J0696; J1940; J2930; J7512; J7614; J7620; J7644

== ENCOUNTER 2023-05-01 09:42 | Outpatient (REF) | payer MEDICARE, MEDICAID, SELFPAY | END 2023-05-01 09:43 | disposition home or self-care (01) | LOC: LBN 09:42 | PROVIDERS: PCP Student in an Organized Health Care Education/Training Program; Visit Provider Student in an Organized Health Care Education/Training Program | DX: J18.9 Pneumonia, unspecified organism (principal); J40 Bronchitis, not specified as acute or chronic; R05.9 Cough, unspecified; Z87.01 Personal history of pneumonia (recurrent); J06.9 Acute upper respiratory infection, unspecified | CPT/HCPCS: 87070; 87205 ==

== ENCOUNTER 2023-06-06 15:21 | Outpatient (REF) | payer MEDICARE, MEDICAID, SELFPAY | END 2023-06-06 15:22 | disposition home or self-care (01) | LOC: LBN 15:21 | PROVIDERS: PCP Student in an Organized Health Care Education/Training Program; Visit Provider Student in an Organized Health Care Education/Training Program | DX: J02.9 Acute pharyngitis, unspecified (principal) | CPT/HCPCS: 87070 ==

== ENCOUNTER 2023-07-23 09:11 | Outpatient (REF) | payer MEDICARE, MEDICAID, SELFPAY ==
[2023-07-23 13:31] LABS: Reticulocyte 1.3 % (0.5-2.4)
[2023-07-23 13:47] LABS: Iron 29 ug/dL (65-175)
[2023-07-23 14:02] LABS: Ferritin 18 ng/mL (26-388); TSH (W/Ref FT4) 0.81 uIU/mL (0.36-3.74)
[2023-07-23 22:51] LABS: T3,Free 5.1 pg/mL (2.8-5.3)
[2023-07-24 12:00] LABS: Transferrin 321 mg/dL (201-352)
== END 2023-07-23 09:12 | disposition home or self-care (01) ==
LOC: LBN 09:11
PROVIDERS: PCP Student in an Organized Health Care Education/Training Program; Visit Provider Student in an Organized Health Care Education/Training Program
DX: E07.9 Disorder of thyroid, unspecified (principal); R79.89 Other specified abnormal findings of blood chemistry; D64.9 Anemia, unspecified; I10 Essential (primary) hypertension
CPT/HCPCS: 82728; 83540; 84443; 84466; 84481; 85045

== ENCOUNTER 2023-08-16 18:33 | Inpatient (IN) | payer MEDICARE, MEDICAID, SELFPAY ==
[2023-08-16] VITALS (56 sets, daily range): BP systolic 137–183; BP diastolic 64–96; PULSE 65–175; RESP 5–31; TEMP 36.8–37.2; O2SAT 88–98
--- NOTE | 2023-08-16 00:03 | DI.RAD_ITS ---
Exam(s) XR KNEE RT 2V AP,LAT EXAM: XR KNEE RT 2V AP,LAT CLINICAL HISTORY: fall, R knee pain. TECHNIQUE: 2D digital imaging was performed. Three views. COMPARISON: CR,XR XR TIB/FIB RT from 08/17/2023 FINDINGS: Exam limited by linear artifact on the lateral view. BONES: No acute fracture is present. No bony destructive lesion is seen. JOINTS: [id number] degenerative changes. The knee is normally aligned. No joint effusion is se en. SOFT TISSUE: Soft tissue defect seen on lateral view above the level of the patella. Focal swelling superior to the patella. Mild diffuse soft tissue swelling. IMPRESSION: No evidence of fracture. Large soft tissue defect above the level of the patella. DATA REPOSITORY: RADIATION DOSE DELIVERED:
--- NOTE | 2023-08-16 00:07 | DI.RAD_ITS ---
Exam(s) XR TIB/FIB RT EXAM: XR TIB/FIB RT CLINICAL HISTORY: R leg pain post fall. TECHNIQUE: 2D digital imaging was performed. Two views. COMPARISON: CR,XR XR HIP PELVIS ADULT BL from 08/16/2023 CR,XR XR KNEE RT 2V AP,LAT from 08/16/2023 FINDINGS: BONES: No acute fracture is present. Bones appear osteopenic. No bony destructive lesion is seen. V isualized portion of knee and ankle joints are unremarkable. SOFT TISSUE: Mild swelling . IMPRESSION: Unremarkable radiographs of the right tibia and fibula. DATA REPOSITORY: RADIATION DOSE DELIVERED:
--- NOTE | 2023-08-16 18:30 | RT.EKG_ITS ---
APPROVED REPORT Exam: Resting ECG Reason for Exam: AFIB Patient Location: E HR:154 bpm ECG Measurements Heart Rate 154 AXIS HI [id number] P [id number] QRSd 73 QRS 74 QT 221 T 251 QTc 354 Conclusion Atrial fibrillation with rapid V-rate...A-rate 432 Repolarization abnormality, prob rate related...ST dep, T neg, tachycardia
[2023-08-16 18:51] LABS: Abs Immature Grans 1.19 10^3/uL (0.0-0.06); HCT 40.1 % (40.0-50.0); HGB 11.5 g/dL (13.5-17.5); MCH 23.9 pg (27.0-33.0); MCHC 28.7 % (32.0-36.0); MCV 83 fL (80-95); MPV 8.9 fL (8.0-11.0); Platelet Count 336 10^3/uL (130-400); RBC 4.81 10^6/uL (4.36-5.78); RDW 16.4 % (11.8-14.1); RDW-SD 49.5 fL; WBC 22.88 10^3/uL (4.4-10.8)
[2023-08-16] MEDS: dilTIAZem 25 MG/5 ML VIAL 20 MG IVP (18:53)
[2023-08-16] MEDS: dilTIAZem 125 MG in Normal Saline 100 ML IV (18:55)
[2023-08-16 19:11] LABS: Absolute Lymphocyte Count 1.14 10^3/uL (1.2-3.4); Absolute Monocyte Count 1.14 10^3/uL (0.1-0.8); Absolute Neutrophil Count 20.13 10^3/uL (1.2-6.7); Bands % 1
[2023-08-16 19:12] LABS: Diff Comment Manual Differential; Myelocytes % 1; Promyelocytes % 1; RBC Morphology Normal
[2023-08-16 19:14] LABS: ALT 86 U/L (16-63); AST 27 U/L (15-37); Albumin 3.4 g/dL (3.4-5.0); Alkaline Phosphatase 145 U/L (46-116); Anion Gap 4.9 mmol/L (3-11); BUN 23 mg/dL (7-18); Bilirubin, Total 0.2 mg/dL (0.2-1.0); CO2 36.1 mmol/L (21.0-32.0); CREATININE 0.8 mg/dL (0.70-1.30); Calcium 8.8 mg/dL (8.5-10.1); Chloride 100 mmol/L (98-107); Glucose 238 mg/dL (74-106); NT-proBNP 46 pg/mL (<300); Potassium 4.3 mmol/L (3.5-5.1); Sodium 141 mmol/L (136-145); Total Protein 6.9 g/dL (6.4-8.2); Troponin I < 50 ng/L (< or =60)
--- NOTE | 2023-08-16 19:15 | DI.RAD_ITS ---
Exam(s) XR PORTABLE CHEST AP EXAM: XR PORTABLE CHEST AP CLINICAL HISTORY: irreg rhythm, sob TECHNIQUE: 2D digital imaging was performed. COMPARISON: CR,XR XR PORTABLE CHEST AP from 03/31/2023 FINDINGS: Exam limited by overlying leads partially obscuring the left lung.. LUNGS: Chronic interstitial changes. No overt pulmonary edema. No focal infiltrate visible. Questi on of tiny bilateral pleural effusions. HEART: Normal size. AORTA: Normal diameter. BONES: Unremarkable for age. Soft tissues: Unremarkable. IMPRESSION: Limited exam. Question of tiny bilateral pleural effusions. DATA REPOSITORY: RADIATION DOSE DELIVERED:
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
[2023-08-16] MEDS: dilTIAZem 25 MG/5 ML VIAL 10 MG IVP (19:20)
--- NOTE | 2023-08-16 19:57 | DI.VRAD_ITS ---
PROCEDURE INFORMATION: Exam: XR Chest Exam date and time: 08/16/2023 7:36 PM Age: 68 years old Clinical indication: Shortness of breath; Patient HX: Irreg rhythm, SOB TECHNIQUE: Imaging protocol: Radiologic exam of the chest. Views: 1 view. COMPARISON: CR XR PORTABLE CHEST AP 03/31/2023 7:46 PM FINDINGS: Lungs: No consolidation. No Mass Pleural spaces: No pleural effusion. No pneumothorax. Heart/Mediastinum: Unremarkable Bones/joints: No significant abnormality IMPRESSION: No acute findings. Dictated and Authenticated by: Mauro Orosco MD. Ordering:ERNIE Uriostegui MD
--- NOTE | 2023-08-16 20:00 | DI.CT_ITS ---
Exam(s) CT CHEST PE CTA EXAM: CT CHEST PE CTA CLINICAL HISTORY: afib, tachycardia, shortness of breath. TECHNIQUE: Imaging Protocol: Axial CT angiography was performed with multi-slice acquisition and mu lti-planar reconstructions as well as axial, coronal and sagittal MIP reconstructions. CONTRAST MATERIAL: Intravenous: Omnipaque 350 Contrast volume:100 ml COMPARISON: MR MR LUMBAR SPINE WO/W from 09/24/[address] THORAX ABD/PEL CTA from 11/25/[address] CHEST PE CTA from 02/28/2023 FINDINGS: Pulmonary Arteries: No evidence of filling defect to suggest pulmonary emboli. Tracheobronchial tree: No mucous plugging. Mediastinum and Radha: No dominant adenopathy or fluid collection. Pulmonary parenchyma: Evaluation limited by respiratory motion. Lungs poorly inflated, particularly lower lobes. Significant improvement in right lower lobe infiltrate. Mild right lower lobe bronchie ctasis. No definite mucous plugging although there is significant motion at this level. Emphysemato us and fibrotic changes. Scarring right upper lobe. No consolidation or dominant measurable mass. Pleura: No effusion or pneumothorax. Heart: The heart is mildly dilated. Mild coronary artery calcifications are seen. Aorta: Thoracic aorta non-dilated. No dissection. Upper abdomen: No acute findings. Splenic masses again noted. Bones: Stable lytic lesion in the T11 vertebral body. Tubes, Catheters, and Lines: Monitoring device over left upper chest. Soft tissues: Unremarkable. IMPRESSION: No evidence of pulmonary embolism. Emphysematous and fibrotic changes. Basilar atelectasis. Stable appearance of lytic lesion in T11. Stable appearance of splenic lesions. RADIATION DOSE DELIVERED: Total DLP DATA REPOSITORY: All CT scans at this facility are submitted to the National Radiology Data Registry (NRDR) Dose Index Registry (DIR) with the [employer] (ACR). RADIATION OPTIMIZATION: All CT scans at this facility use at least one of these dose optimization te chniques: automated exposure control; mA and/or kV adjustment per patient size (includes targeted exa ms where dose is matched to clinical indication); or iterative reconstruction.
[2023-08-16 20:07] LABS: Digoxin 0.23 ng/mL (0.90-2.00)
[2023-08-16] MEDS: Omnipaque 350 MG/ML 100 ML BTL IJ (20:20)
[2023-08-16] MEDS: Normal Saline - Diluent 50 ML VIAL IJ (20:21)
[2023-08-16] MEDS: Digoxin 0.5 MG/2 ML AMP 0.25 MG IVP (20:49)
--- NOTE | 2023-08-16 20:56 | DI.VRAD_ITS ---
PROCEDURE INFORMATION: Exam: CTA Chest With Contrast Exam date and time: 08/16/2023 8:20 PM Age: 68 years old Clinical indication: Shortness of breath; Patient HX: Afib, tachycardia, SOB TECHNIQUE: Imaging protocol: Computed tomographic angiography of the chest with contrast. Exam focused on the arteries. 3D rendering (Not supervised by radiologist): MIP and/or 3D reconstructed images were created by the technologist. COMPARISON: CT CHEST PE CTA 02/28/2023 2:50 PM FINDINGS: Pulmonary arteries: No evidence of pulmonary embolus. Aorta: Mild atherosclerotic changes of the thoracic aorta. No aneurysm or dissection. Lungs: Moderate centrilobular emphysematous changes bilaterally are again noted. Scarring in the right upper lobe is unchanged. No consolidation. No suspicious lung nodules. Pleural spaces: No pleural effusion. Heart: Unremarkable. No cardiomegaly. No pericardial effusion. Lymph nodes: Unremarkable. No enlarged lymph nodes. Spleen: Multiple hypodense lesions within the spleen are again noted. Bones/joints: Expansile lucent lesion within T11 to the right of midline extending into the pedicle is unchanged. Healed fractures of the left 8th and 9th ribs. No acute fractures. Soft tissues: Unremarkable. IMPRESSION: 1. No evidence of pulmonary embolus. 2. Lucent lesion within T11 is unchanged from the previous CT. This was reported on a lumbar spine MRI dated 09/24/2022 . Please see that report for details 3. Stable emphysema. Dictated and Authenticated by: Mauro Orosco MD. Ordering:ERNIE Uriostegui MD
[2023-08-16 20:58] LABS: Bilirubin Negative (Negative); Blood Negative (Negative); Clarity Clear (Clear); Glucose Negative (Negative); Ketones Negative (Negative); Leukocyte Esterase Negative (Negative); Nitrite Negative (Negative); Urobilinogen 0.2 mg/dL (Up to 0.2); pH 6.5 (5-8)
[2023-08-16 21:03] LABS: RBC Negative HPF (0-2); WBC Negative HPF (0-5)
[2023-08-16 21:04] LABS: Bacteria Rare HPF (Negative); C & S Indicated? No; Casts Negative LPF (Negative); Crystals Negative HPF (Negative); Epithelial Cells Negative HPF (Negative); Mucus Negative (Negative)
[2023-08-16 21:33] LABS: COVID-19 PCR Negative (Negative); Influenza A PCR Negative (Negative); Influenza B PCR Negative (Negative); RSV PCR Negative (Negative)
[2023-08-16 21:35] LABS: Source NASOPHARYNX
--- NOTE | 2023-08-16 21:39 | NUR.NOTE ---
Nursing Note: Pt converted from afib RVR rates 130s-160s to Sinus rhythm, HR 70-80s, at 2134. Alexx BORJAS aware.
[2023-08-16 21:44] LABS: Lab Add On Test DONE
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
--- NOTE | 2023-08-16 22:15 | RT.EKG_ITS ---
APPROVED REPORT Exam: Resting ECG Reason for Exam: conversion to NSR Patient Location: I HR:73 bpm ECG Measurements Heart Rate 73 AXIS IN 124 P -12 QRSd 91 QRS 75 QT 335 T 67 QTc 369 Conclusion Sinus rhythm...normal P axis, V-rate 50- [address] elevation, anterior leads...ST >0.10mV, V1-V4
[2023-08-16 22:21] LABS: Troponin I < 50 ng/L (< or =60)
[2023-08-16 22:27] LABS: Procalcitonin < 0.1 ng/mL
[2023-08-16] MEDS: Acetaminophen 325 MG TAB PO (22:46)
[2023-08-16] MEDS: Enoxaparin 40 MG/0.4 ML SYR SC (22:46)
[2023-08-16] MEDS: Normal Saline Flush 10 ML SYR IVP (22:47)
[2023-08-16] MEDS: dilTIAZem CD 120 MG CAPCR 240 MG PO (22:51)
--- NOTE | 2023-08-16 23:58 | DI.RAD_ITS ---
Exam(s) XR HIP PELVIS ADULT BL EXAM: XR HIP PELVIS ADULT BL CLINICAL HISTORY: B hip pain post fall. TECHNIQUE: 2D digital imaging was performed. Three views. COMPARISON: CT CT CHEST PE CTA from 08/16/2023 FINDINGS: Exam is limited by patient body habitus. Under penetration on the view of the pelvis. BONES: No acute fracture is present. Deformity of the left upper femur seen on lateral view may be r elated to an old healed fracture. No bony destructive lesion is seen. JOINTS: No dislocation present. Mild degenerative changes of the hips. SI joints and pubic symphy sis are unremarkable. SOFT TISSUE: Contrast were not noted in urinary bladder rib related to prior CT. IMPRESSION: No acute abnormality. DATA REPOSITORY: RADIATION DOSE DELIVERED:
[2023-08-17] VITALS (45 sets, daily range): BP systolic 140–161; BP diastolic 65–87; PULSE 63–89; RESP 5–30; TEMP 36.4–36.5; O2SAT 81–96
--- NOTE | 2023-08-17 00:22 | DI.VRAD_ITS ---
PROCEDURE INFORMATION: Exam: XR Right Tibia and Fibula Exam date and time: 08/17/2023 12:01 AM Age: 68 years old Clinical indication: Injury or trauma; Fall TECHNIQUE: Imaging protocol: Radiologic exam of the right tibia and fibula. Views: 2 views. COMPARISON: CR XR KNEE RT 2V AP,LAT 08/16/2023 11:59 PM FINDINGS: Bones/joints: No acute fracture or subluxation. The bones are demineralized. Soft tissues: Generalized soft tissue swelling. IMPRESSION: No acute bony pathology. Dictated and Authenticated by: Ashley Arteaga MD. Ordering:PILI Grant MD
--- NOTE | 2023-08-17 00:22 | DI.VRAD_ITS ---
PROCEDURE INFORMATION: Exam: XR Right Knee Exam date and time: 08/16/2023 11:59 PM Age: 68 years old Clinical indication: Injury or trauma; Fall; Prior surgery; Surgery date: 6+ months; Surgery type: Knee reconstruction TECHNIQUE: Imaging protocol: Radiologic exam of the right knee. Views: 3 views. COMPARISON: US EXTREMITY VENOUS BI 04/02/2023 9:37 AM FINDINGS: Bones/joints: The bones are demineralized. Chondrocalcinosis. Mild chronic tricompartmental degenerative changes. No acute fracture or subluxation. Soft tissues: Generalized soft tissue swelling. The anterior distal thigh soft tissues appear attenuated. IMPRESSION: No acute bony pathology. Dictated and Authenticated by: Ashley Arteaga MD. Ordering:PILI Grant MD
--- NOTE | 2023-08-17 00:23 | DI.VRAD_ITS ---
PROCEDURE INFORMATION: Exam: XR Right Hip Exam date and time: 08/16/2023 11:54 PM Age: 68 years old Clinical indication: Injury or trauma; Fall TECHNIQUE: Imaging protocol: Radiologic exam of the right hip. Views: 2 or 3 views hip with pelvis when performed. COMPARISON: CT THORAX ABD/PEL CTA 11/25/2022 9:49 PM FINDINGS: Bones/joints: No acute fracture or subluxation. There may be a chronic healed deformity of proximal left femoral diaphysis partially imaged. Soft tissues: Unremarkable. Organs: Contrast in the urinary bladder, only mildly distended, likely chronically trabeculated and/or neurogenic. IMPRESSION: No acute bony pathology. Dictated and Authenticated by: Ashley Arteaga MD. Ordering:PILI Grant MD
[2023-08-17] MEDS: Furosemide 20 MG/2 ML VIAL IVP ×3 (00:29→15:55)
[2023-08-17] MEDS: Levalbuterol 1.25 MG/3 ML UPD VIAL UPD ×2 (03:40→13:44)
[2023-08-17] MEDS: Ipratropium 0.5 MG/2.5 ML UPD VIAL 0.25 MG IH ×2 (03:40→13:43)
[2023-08-17] MEDS: Potassium Chloride 20 MEQ TABCR PO (05:31)
[2023-08-17 06:00] LABS: Abs Immature Grans 1.01 10^3/uL (0.0-0.06); HCT 39.9 % (40.0-50.0); HGB 11.4 g/dL (13.5-17.5); MCH 23.6 pg (27.0-33.0); MCHC 28.6 % (32.0-36.0); MCV 82 fL (80-95); MPV 9.2 fL (8.0-11.0); Platelet Count 323 10^3/uL (130-400); RBC 4.84 10^6/uL (4.36-5.78); RDW 16.7 % (11.8-14.1); RDW-SD 49.4 fL; WBC 21.78 10^3/uL (4.4-10.8)
[2023-08-17 06:28] LABS: Anion Gap 4.5 mmol/L (3-11); BUN 23 mg/dL (7-18); CO2 39.5 mmol/L (21.0-32.0); CREATININE 0.6 mg/dL (0.70-1.30); Calcium 8.7 mg/dL (8.5-10.1); Chloride 98 mmol/L (98-107); Glucose 116 mg/dL (74-106); Magnesium 1.9 mg/dL (1.8-2.4); Sodium 142 mmol/L (136-145); Troponin I < 50 ng/L (< or =60)
[2023-08-17 06:34] LABS: Absolute Lymphocyte Count 3.27 10^3/uL (1.2-3.4); Absolute Monocyte Count 1.52 10^3/uL (0.1-0.8); Absolute Neutrophil Count 16.55 10^3/uL (1.2-6.7); Diff Comment Manual Differential; Myelocytes % 1; Promyelocytes % 1; RBC Morphology Normal
[2023-08-17 06:42] LABS: Hemoglobin A1C 6.3 % (<5.7)
[2023-08-17] MEDS: Omeprazole 20 MG CAPCR PO (07:53)
[2023-08-17] MEDS: Normal Saline Flush 10 ML SYR IVP ×3 (07:53→20:14)
[2023-08-17 08:17] LABS: Lab Add On Test COMPLETED
[2023-08-17] MEDS: Ascorbic Acid 500 MG TAB PO (08:22)
[2023-08-17] MEDS: Aspirin E.C. 81 MG TABEC PO (08:22)
[2023-08-17] MEDS: guaiFENesin 600 MG TABCR PO ×2 (08:22→20:13)
[2023-08-17] MEDS: predniSONE 20 MG TAB PO (08:22)
[2023-08-17] MEDS: Digoxin 0.125 MG TAB PO (08:22)
[2023-08-17] MEDS: Roflumilast 500 MCG TAB PO (08:22)
[2023-08-17] MEDS: dilTIAZem CD 120 MG CAPCR 240 MG PO ×2 (08:23→20:14)
[2023-08-17] MEDS: Ketoconazole 2% CREAM 15 GM TUBE TP (08:23)
[2023-08-17 08:26] LABS: C-Reactive Protein < 0.50 mg/dL (<or=0.5)
[2023-08-17] MEDS: Budesonide/Formoterol 80/4.5 6.9 GM 60 PUFF INH IH ×2 (08:41→20:12)
[2023-08-17] MEDS: Tiotropium Bromide-Respimat 10 PUFF INH 2 PUFF IH (08:41)
--- NOTE | 2023-08-17 09:41 | PGE_ITS ---
Date of Service Date of service: 08/17/23 Time of Service: 09:41 Assessment and Plan Assessment and plan (1) Atrial fibrillation with rapid ventricular response: Status: Acute Assessment and plan: Patient has history of PAF. He is not under the care of a javascript web developer. I recommend to rule I that he stay for today while we can assess stability of his heart rhythm and get an echocardiogram and a formal cardiology consult in the morning. PT would benefit from long-term antidysrhythmic therapy with amiodarone. However I would like cardiology's input on his care. Alternatively consideration could be given for an ablation procedure although his severity of his COPD does make him high risk for conscious sedation for the procedure. With respect to anticoagulation he has had a history of falls in the past did have a recent fall out of bed in the last couple weeks. He did not sustain any significant injury. Patient has remained off the diltiazem drip ever since he arrived to the intensive care unit last night. At this point he can be transferred out of ICU to the medical/surgical floor with continued telemetry monitoring. I do feel he has little bit of congestive failure he has bibasilar rales and bibasilar B- lines on his ultrasound. He did receive some Lasix last night and gave him some more IV Lasix today and recheck his labs in the morning along with a formal echocardiogram tomorrow, cardiology consult tomorrow. (2) SIRS (systemic inflammatory response syndrome): Status: Acute Assessment and plan: While technically he met SIRS criteria on admission he had 3 out of the 4 criteria including tachypnea and tachycardia and leukocytosis but he did not have a fever. However think all of his symptoms for SIRS actually reflects his acute and chronic medical conditions including his rapid atrial fibrillation and his underlying COPD. He has no evidence for infection has no fever and his sputum production is clear to white. Imaging did not show evidence for pneumonia.His leukocytosis is likely secondary to his chronic prednisone therapy . His procalcitonin level is normal. (3) Chest pain, unspecified: Status: Acute Assessment and plan: No chest pain this morning. I suspect that his symptoms are really palpitations from his A-fib. Negative troponins he is ruled out for ACS. Will get an echocardiogram in the morning as part of completion of his workup. Qualifiers: Chest pain type: unspecified Qualified Code(s): R07.9 - Chest pain, unspecified (4) End stage COPD: Status: Chronic Assessment and plan: Continue supplemental oxygen 4 L at rest 6 L with activity along with use of BiPAP/trilogy Continue his home inhalers which includes Spiriva and budesonide/formoterol along with as needed dosing of Xopenex. (5) DVT prophylaxis: Status: Acute Assessment and plan: SC enoxaparin (6) Discharge planning issues: Status: Acute Assessment and plan: Patient be discharged home with follow-up home health nursing and PT as indicated based on PTs evaluation here in the hospital. Palliative care was consulted to address CODE STATUS. Patient remains full code. Subjective Subjective Interval history since last seen: Dave presented w/ acute rapid atrial fibrillation, he has known PAF. He converted last night to SR after given amiodarone 150 mg IVP after failure to adequately control his rate w/ boluses of diltiazem and digoxin. Patient has severe COPD and is oxygen and prednisone dependent. he uses trilogy/BiPAP at home. Exam Narrative Exam Narrative: Obese male sitting up in his chair no acute distress. He has moist cough minimally productive of clear to white mucus. Patient denies any chest pain or pressure palpitations he is currently in sinus rhythm and a rate of 73 bpm Lungs bibasilar rales along with diffuse end expiratory wheezes no rhonchi Heart is regular rate and rhythm no appreciable murmur rub or gallop Abdomen obese soft and nontender Legs and feet no significant edema Objective Last Vital Signs Temp 36.4 C L 08/17/23 08:00 Pulse 72 08/17/23 09:01 Resp 15 08/17/23 09:01 BP 145/69 H 08/17/23 09:01 Pulse Ox 95 08/17/23 09:01 Laboratory Results - last 24 hr 08/16/23 08/16/23 08/16/23 18:40 19:32 20:50 WBC 22.88 H RBC 4.81 Hgb 11.5 L Hct 40.1 MCV 83 MCH 23.9 L MCHC 28.7 L RDW 16.4 H Plt Count 336 MPV 8.9 Immature Gran % See Differential Neutrophils % 87.0 Band Neutrophils % 1 Lymphocytes % 5.0 Monocytes % 5.0 Eosinophils % 0.0 Basophils % 0.0 Myelocytes % 1 Promyelocytes % 1 Nucleated RBC % 0.0 Absolute Neutrophils 20.13 H Absolute Lymphocytes 1.14 L Absolute Monocytes 1.14 H Absolute Eosinophils 0.00 Absolute Basophils 0.00 RBC Morphology Normal Sodium 141 Potassium 4.3 Chloride 100 Carbon Dioxide 36.1 H Anion Gap 4.9 BUN 23 H Creatinine 0.8 Est GFR (CKD-EPI 2020) 97.00 Glucose 238 H Hemoglobin A1c Calcium 8.8 Magnesium 2.0 Total Bilirubin 0.2 AST 27 ALT 86 H Alkaline Phosphatase 145 H Troponin I < 50 C-Reactive Protein NT-Pro-B Natriuret Pep 46 Total Protein 6.9 Albumin 3.4 Procalcitonin < 0.1 Urine Color Yellow Urine Clarity Clear Urine pH 6.5 Ur Specific [place] 1.020 Urine Protein 30 H Urine Ketones Negative Urine Blood Negative Urine Nitrite Negative Urine Bilirubin Negative Urine Urobilinogen 0.2 Ur Leukocyte Esterase Negative Urine RBC Negative Urine WBC Negative Ur Epithelial Cells Negative Urine Crystals Negative Urine Bacteria Rare Urine Casts Negative Urine Mucus Negative Ur Culture Indicated? No Urine Glucose Negative Digoxin 0.23 L COVID-19 Source NASOPHARYNX SARS-CoV-2 (PCR) Negative Influenza Type A (PCR) Negative Influenza Type B (PCR) Negative RSV (PCR) Negative Add-On Test Request DONE 08/16/23 08/17/23 21:57 05:15 WBC 21.78 H RBC 4.84 Hgb 11.4 L Hct 39.9 L MCV 82 MCH 23.6 L MCHC 28.6 L RDW 16.7 H Plt Count 323 MPV 9.2 Immature Gran % 0.0 Neutrophils % 76.0 Band Neutrophils % Lymphocytes % 15.0 Monocytes % 7.0 Eosinophils % 0.0 Basophils % 0.0 Myelocytes % 1 Promyelocytes % 1 Nucleated RBC % 0.0 Absolute Neutrophils 16.55 H Absolute Lymphocytes 3.27 Absolute Monocytes 1.52 H Absolute Eosinophils 0.00 Absolute Basophils 0.00 RBC Morphology Normal Sodium 142 Potassium 4.0 Chloride 98 Carbon Dioxide 39.5 H Anion Gap 4.5 BUN 23 H Creatinine 0.6 L Est GFR (CKD-EPI 2020) 105.80 Glucose 116 H Hemoglobin A1c 6.3 H Calcium 8.7 Magnesium 1.9 Total Bilirubin AST ALT Alkaline Phosphatase Troponin I < 50 < 50 C-Reactive Protein < 0.50 NT-Pro-B Natriuret Pep Total Protein Albumin Procalcitonin Urine Color Urine Clarity Urine pH Ur Specific [place] Urine Protein Urine Ketones Urine Blood Urine Nitrite Urine Bilirubin Urine Urobilinogen Ur Leukocyte Esterase Urine RBC Urine WBC Ur Epithelial Cells Urine Crystals Urine Bacteria Urine Casts Urine Mucus Ur Culture Indicated? Urine Glucose Digoxin 0.50 L COVID-19 Source SARS-CoV-2 (PCR) Influenza Type A (PCR) Influenza Type B (PCR) RSV (PCR) Add-On Test Request COMPLETED Time Spent with Patient Time Spent with Patient: >50 minutes Time was spent: preparing to see the patient(eg.review tests), ordering medications,tests, procedures, referring, communicating with other health care management associate (Dr. Sullivan), indepentently interpreting results, counseling the patient and care coordination
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
[2023-08-17] MEDS: Spironolactone 25 MG TAB PO (10:42)
--- NOTE | 2023-08-17 12:16 | RESPIRATORY ---
RT Assessment Start: 08/16/23 20:57 Freq: .q shift and prn Status: Active Protocol: Document 08/17/23 08:42 (Rec: 08/17/23 08:45 [id number]) RT Assessment Pulmonary History Pulmonary History COPD Smoking History Smoking/Tobacco Use Status Former Tobacco Use Tobacco: How many years used 40 Quit Date 11/04/12 Tobacco Type cigarettes,cigars Packs per Day 3 Cigarettes per Day 60 Years smoked 40 Smoking packs per day 3 OXYGEN HISTORY: Supplemental O2 At Rest 4 With Exertion 6 CPAP Settings N/A BIPAP Settings N/A Trilogy/AVAPS Settings VT 385, PS Max 15 / Min 5, RR 5, Max P 20. Can use home machine Yes: DME [facility] DME/Compliance DME Trilogy - [employer]. Oxygen - [place] Compliance Good baseline compliance. States Trilogy needs calibration - beeping noise. Current Respiratory Symptoms Current Respiratory Symptoms Cough,Sputum production Respiratory Breath Sounds Breath Sounds Faint wheezing or rhonci, decreased sounds throughout Response No change Pulse Rate <100 Respiratory Rate <18 Shortness of Breath On exertion Respiratory Therapy Score Total 3 Assessment and Plan RT Treatment Protocol Bronchodilator Aerosol Therapy Protocol,Lung Expansion Therapy Protocol,Bronchial Hygiene Therapy Protocol Note Mild score of 3. Patient is on home baseline O2 requirement, speaking full sentences and moving around room as normal. Pt's Trilogy NIV is not with him, [id number] in PRVC at bedside as substitute. RT gave VibraPEP acapella and IS devices to patient. Patient is familiar with them from previous admissions. Patient has home regimen of Symbicort and Spiriva ordered, as well as PRN bronchodilators. Patient's Trilogy machine now brought in by family: Patient's own Trilogy Christophe NIV upper cutter machine at bedside. RT checked out machine and cleaned mask. Pt has been putting Yovany's Vapor Rub on the inside. RT advised against doing this. Mode: S/T EPAP: 5 IPAP: 15 iTime: 1.5 Rate: 20 O2 bleed in: current prescription is 4L O2 bleed in . Note: AVAPS is turned off currently with patient's new machine and prescription on Trilogy Christophe.
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
[2023-08-17] MEDS: Acetaminophen 325 MG TAB PO (20:14)
[2023-08-17] MEDS: Enoxaparin 40 MG/0.4 ML SYR SC (20:19)
[2023-08-18] VITALS (17 sets, daily range): BP systolic 120–147; BP diastolic 72–88; PULSE 67–93; RESP 9–29; TEMP 36.1–36.5; O2SAT 88–95
[2023-08-18] MEDS: Levalbuterol 1.25 MG/3 ML UPD VIAL UPD ×2 (06:04→13:45)
[2023-08-18 06:57] LABS: Magnesium 2.2 mg/dL (1.8-2.4)
[2023-08-18 07:05] LABS: NT-proBNP 56 pg/mL (<300)
[2023-08-18 07:24] LABS: Anion Gap 6.9 mmol/L (3-11); BUN 26 mg/dL (7-18); CO2 38.1 mmol/L (21.0-32.0); CREATININE 0.8 mg/dL (0.70-1.30); Calcium 9.6 mg/dL (8.5-10.1); Chloride 96 mmol/L (98-107); Glucose 107 mg/dL (74-106); Potassium 4.2 mmol/L (3.5-5.1); Sodium 141 mmol/L (136-145)
--- NOTE | 2023-08-18 07:30 | DI.US_ITS ---
APPROVED REPORT EXAM: Comprehensive 2D, Doppler, and color-flow Echocardiogram Patient Location: In-Patient Room/Bed: 219 Morning Caregiver: Henry Spencer RDCS (AE) Indications: Chest pain Conclusion Normal left ventricular size and wall thickness. Ejection fraction is 55%. Wall motion is normal. Diastolic function appears normal for age Normal right ventricular size and systolic function Both atria are normal in size Within the limits of the study there is no structural or hemodynamically significant valvular disease Right ventricular systolic pressure could not be estimated There is no significant change from her echocardiogram from March 2023 Wall motion Left Ventricle The left ventricle is grossly normal size. The left ventricular systolic function is normal. The left ventricular ejection fraction is within the normal range. There is normal left ventricular wall thic kness. There is normal LV segmental wall motion. The left ventricular diastolic function is normal. T here is no ventricular septal defect visualized. LVEF is 55%. Right Ventricle The right ventricle is normal size. Right ventricular systolic function is grossly normal. Atria The left atrium size is normal. The right atrium size is normal. The interatrial septum is intact wit h no evidence for an atrial septal defect. Aortic Valve The aortic valve is not well visualized. Number of aortic valve leaflets could not be assessed. There is no aortic valvular stenosis. No aortic regurgitation is present. Mitral Valve The mitral valve is normal in structure. No evidence of mitral valve stenosis. Trace mitral regurgita tion. Tricuspid Valve The tricuspid valve is normal in structure. There is no tricuspid valve stenosis. Trace tricuspid reg urgitation. Unable to assess PA pressure. Pulmonic Valve The pulmonary valve is normal in structure. There is no pulmonic valvular stenosis. Trace pulmonic re gurgitation. Great Vessels The aortic root is normal in size. Ascending aorta is not well visualized. Aortic arch is not well vi sualized. IVC is normal in size and collapses >50% with inspiration. Pericardium There is no pericardial effusion. 2D Dimensions Ao Root d 3.53 cm M: 3.1 - 3.7 Auto EF LV EDV A4C 126.9 mL LV EDV A2C 96.0 mL LV EDV BP 110.1 mL LV ESV A4C 61.5 mL LV ESV A2C 41.3 mL LV ESV BP 50.3 mL LVEF(%) A4C 51.5 % LVEF(%) A2C 57.0 % LVEF(%) BP 54.3 % LV SV A4C 65.4 ml LV SV A2C 54.7 ml LV SV BP 59.8 ml LV CO A4C 5.1 L/min LV CO A2C 4.3 L/min LV CO BP 4.7 L/min HR A4C 77.93 BPM HR A2C 77.89 BPM LV EDV Index (BP) LA Volume LA Length A4C 6.0 cm LA Length A2C LA Area A4C s 12.54 cm2 LA Area A2C s LA Vol A4C A-L 22.23 mL LA Vol A2C A-L LA Vol Biplane A-L LA Vol A4C MOD 20.0 mL LA Vol A2C MOD LA Vol BP MOD RA Volume RA Area A4C 10.1 cm2 RA ESV A4C (A-L) 19.5mL RA Vol/BSA A4C A-L RA Length A4C 4.4 cm RA ESV A4C (MOD) 18.7mL LV Diastology MV E' medial 0.108 (>0.07 m/s) MV E Vmax 0.62 (0.4-1.3 m/s) MV E/E' MED 5.74 (<14) MV A Vmax 0.70 (0.4-1.3 m/s) MV E' lateral 0.091 (>0.1 m/s) E/A Ratio 0.9 MV E/E' LAT 6.81 (<14) MV E' Average 0.099 m/s MV E/E'(average) 6.23 Aortic Valve AoV Vmax 1.03 m/s LVOT Vmax 0.89 m/s AoV Peak Grad 4.2 mmHg LVOT Peak Grad 3.2 mmHg AoV Area (Vmax) 3.12 cm2 LVOT VTI 0.166 m AoV VTI 0.179 m LVOT Mean Grad 1.6 mmHg AoV Mean Faisal. 0.65 m/s LVOT SV 59.61 mL AoV Mean Grad 2.0 mmHg LVOT Diam s 2.10 cm AoV Area (VTI) 3.34 cm2 Velocity Ratio 0.86 Mitral Valve MV DT 250 (160-240 msec)
[2023-08-18] MEDS: Digoxin 0.125 MG TAB PO (08:21)
[2023-08-18] MEDS: guaiFENesin 600 MG TABCR PO (08:21)
[2023-08-18] MEDS: Omeprazole 20 MG CAPCR PO (08:21)
[2023-08-18] MEDS: predniSONE 20 MG TAB PO (08:21)
[2023-08-18] MEDS: Spironolactone 25 MG TAB PO (08:21)
[2023-08-18] MEDS: Roflumilast 500 MCG TAB PO (08:21)
[2023-08-18] MEDS: Aspirin E.C. 81 MG TABEC PO (08:22)
[2023-08-18] MEDS: Furosemide 20 MG/2 ML VIAL IVP (08:22)
[2023-08-18] MEDS: Potassium Chloride 20 MEQ TABCR PO (08:22)
[2023-08-18] MEDS: Ascorbic Acid 500 MG TAB PO (08:22)
[2023-08-18] MEDS: dilTIAZem CD 120 MG CAPCR 240 MG PO (08:22)
[2023-08-18] MEDS: Normal Saline Flush 10 ML SYR IVP (08:23)
[2023-08-18] MEDS: Tiotropium Bromide-Respimat 10 PUFF INH 2 PUFF IH (08:44)
[2023-08-18] MEDS: Budesonide/Formoterol 80/4.5 6.9 GM 60 PUFF INH IH (08:44)
[2023-08-18] MEDS: Ketoconazole 2% CREAM 15 GM TUBE TP (09:21)
--- NOTE | 2023-08-18 12:29 | W.NUTRFU ---
Date of service: 08/18/23 Time of Service: 11:45 Nutrition Note NOTE: received routine consult for diabetes education Dave sitting up in bed upon visit. I started a conversation about diabetes - aDve states his brother and sister have diabetes and other family members, and states but I don't. I affirmed this but clarified that he does have prediabetes and the family history and this plus many of his chronic issues will probably set him up to become in the diabetic range. No diabetes meds at home. meals are covered with sensitive scale of insulin aspart during admission and FBG was 107 this morning 116 yesterday. These are looking great considering he is currently on prednisone. Most recent A1C was 6.3 yesterday. Ordered for HH/CHO consistent diet order with normal consistencies. Noted vitamin D lab was 11.06 october 2022 and pt no longer taking vitamin D at home. Reviewed my role in diabetes education - pt states he snacks on some popcorn once in a while but doesn't have a sweet tooth. Briefly reviewed other carbs in the diet and offered to talk more about amounts/carb counting for his needs. Pt declined at this time but accepted my card with contact info should he decide he'd like some outpatient education if he grows concerned about his glucose numbers in the future. Will continue to monitor his glucose, po intake, and remain available for outpatient eduction. At this time would recommend 25-OH vitamin D lab and provide D3 as needed upon discharge for follow up with his PCP Time Spent in Nutritional Counseling and Treatment: 15 minutes
--- NOTE | 2023-08-18 13:02 | PHA.REVIEW2 ---
Pharmacy Admission Review Admission Clinical Review Admission Pharmacy Review: Tinea pedis (Acute) Chest pain, unspecified (Acute) Discharge planning issues (Acute) DVT prophylaxis (Acute) SIRS (systemic inflammatory response syndrome) (Acute) Atrial fibrillation with rapid ventricular response (Acute) Leukocytosis (Acute) Hyperglycemia (Acute) albuterol Adverse Reaction (Intermediate, Verified 08/16/23 18:58) SVT/rapid heart rate atorvastatin Adverse Reaction (Unverified 08/16/23 18:58) Other (See Comment) citalopram [From Celexa] Adverse Reaction (Verified 08/16/23 18:58) worsening anxiety/depression terazosin Adverse Reaction (Verified 08/16/23 18:58) Dizziness/Lightheade lobster Allergy (Uncoded 08/16/23 18:58) Dizziness/Lightheade Resuscitation Status Full Code Height 5 ft 9 in Weight 90.435 kg Comments Comments/Follow Ups: Per morning meeting, waiting on cardio consult which is scheduled for today Pharmacy Admission Review Renal Dosing Renal Dosing: BUN 26 mg/dL (7-18) H 08/18/23 05:25 Creatinine 0.8 mg/dL (0.70-1.30) 08/18/23 05:25 Medications needing adjustments: Reviewed (CrCl 79.69 mL/min) Anticoagulation Anticoagulation: Hgb 11.4 g/dL (13.5-17.5) L 08/17/23 05:15 Hct 39.9 % (40.0-50.0) L 08/17/23 05:15 Plt Count 323 10^3/uL (130-400) 08/17/23 05:15 Creatinine 0.8 mg/dL (0.70-1.30) 08/18/23 05:25 DVT Prophylaxis: Reviewed Medications: Enoxaparin (40mg q24h) Relevant Labs Relevant Labs: Sodium 141 mmol/L (136-145) 08/18/23 05:25 Potassium 4.2 mmol/L (3.5-5.1) 08/18/23 05:25 Chloride 96 mmol/L (98-107) L 08/18/23 05:25 Phosphorus 4.0 mg/dL (2.6-4.7) 08/18/23 05:25 Magnesium 2.2 mg/dL (1.8-2.4) 08/18/23 05:25 C-Reactive Protein < 0.50 mg/dL (<or=0.5) 08/17/23 05:15 Electrolytes, C-Reactive P, ESR: Reviewed (BUN increased to 26 from 23 and glucose 136 at 1135. Digoxin level was 0.5 ng/mL yesterday at 0515. No new level for today.) Cardiac Review Cardiac Review: Troponin I < 50 ng/L (< or =60) 08/17/23 05:15 NT-Pro-B Natriuret Pep 56 pg/mL (<300) 08/18/23 05:25 BP, HR, EF%: Reviewed (HR and BP WNL, Ox 89 on NC 4) QTc Review QTc: Reviewed (354 on 08/16/23) IV to PO Switch IV Medications: Reviewed (IV furosemide) Home Meds Home Med List reviewed: Reviewed Relevent Home Meds Not ordered & why?: Albuterol (as needed) Current Meds Current Medication Order Review: Reviewed Comments Comments/Follow Ups: Per morning meeting, waiting on cardio consult which is scheduled for today
[2023-08-18] MEDS: Ipratropium 0.5 MG/2.5 ML UPD VIAL 0.25 MG IH (13:45)
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
--- NOTE | 2023-08-18 14:51 | PDOC.HHF2F_ITS ---
Home Health Referral Home Health Orders Clinical synopsis of why skilled professionals are needed: Patient presented with exacerbation atrial fibrillation with rapid ventricular response. Patient needs resumption of home health services to monitor his atrial fibrillation as well as to educate and reconcile in his new home medication list. Please coordinate with his application integration specialist Dr. Rios regarding follow-up monitoring of his atrial fibrillation including any need for Holter monitoring. Please coordinate with Dr. Marielena Bates his primary care provider regarding follow-up labs. Patient needs thyroid function tests and CMP within a month. Patient also needs an eye exam with his mutual fund manager or op tometrist within a month of starting amiodarone and every 6 months thereafter. Patient needs follow-up with his magnetic testing technician regarding monitoring his pulmonary function test while on amiodarone. Patient should resume his previous home health services of OT and PT as previously ordered by his PCP Medical diagnosis necessitation home health referral: Atrial fibrillation, end-stage COPD Registered Nurse: Check all that apply Instruct on new or changed medication(s)/assess compliance: Ordered (by hospitalist) Assess for exacerbation of medical condition, instruct patient/caregivers on signs and symptoms to report for early detection: Ordered (by hospitalist) Physical Therapist: Check all that apply Increase strength & endurance for safe mobility at home: Ordered To design/establish home maintenance program: Ordered Fall reduction therapy program for patient with history of frequent falls: Ordered Home safety evaluation and teaching/gait training including stair management (if applicable): Ordered Better Breathing Program: Ordered Occupational Therapist: Evaluate and treat for patient unable to perform ADL/IADL/self-care: Ordered Jeep Driver: Assist with community resources: Ordered Assist with predatory animal exterminator care planning: Ordered Other: case management coordinator Home Bound Status Requires the aid of supportive device (check all that apply): Walker Patient has a condition such that leaving home is medically contraindicated (Describe): requires oxygen 100% of the time, 27/01 Describe why leaving home would require a considerable and taxing effort: Requires frequent rest periods and Oxygen Encounter Date and Reason: I certify that a FTF encounter for this patient was performed on August 18, 2023 and that such encounter was related to the primary reason the patient requires home health services. The encounter was conducted in the following manner: * By me as the certifying physician, DRAPERY COUNSELOR, PA or * By an inpatient physician, DRAPERY COUNSELOR or PA during an inpatient stay who communicated findings to me, Certification And Authentication I certify that I composed the above information based on my clinical judgment relating to this patient's medical condition and, if applicable, clinical findings communicated to me by the NPP or inpatient physician who performed the FTF encounter. Name of Provider that will be monitoring home health services: Marielena Bates
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
--- NOTE | 2023-08-18 15:37 | CMDISCH_ITS ---
Date of service: 08/18/23 Time of Service: 15:37 LACE Index Scoring Tool Questions: Length of Stay (in days): 1 Was the patient admitted via the E.D.?: Yes Comorbidities: Chronic Pulmonary Disease E.D. Visits: 1 Answers: Total Score: 7 Risk of Readmission: Low Risk Care Management Discharge Plan Reason for Hospitalization: Rapid Afib Discharge Plan: Dave will return home via RCT coordinated by CM. He will resume nursing services and case management. He will follow up with his PCP and [facility] for cardiology. CM will follow up w/ protective services case worker Elvie Levine to communicate Doug concerns regarding medications. Patient/Family Education Needs: Review discharge instructions and discuss Ask Me Three Services Needed at Discharge: Home Health Care Services SDOH Health Related Social Needs: No Data to Display
== END 2023-08-18 16:05 | disposition home health service (06) | DRG 309 ==
LOC: ER 20:57 → ICU 08-17 12:47
PROVIDERS: Internal Medicine; Admitting Provider Internal Medicine; Emergency Provider Student in an Organized Health Care Education/Training Program; PCP Student in an Organized Health Care Education/Training Program; Visit Provider Internal Medicine
DX: I48.0 Paroxysmal atrial fibrillation (principal); E46 Unspecified protein-calorie malnutrition; R65.10 Systemic inflammatory response syndrome (SIRS) of non-infectious origin without acute organ dysfunction; J96.11 Chronic respiratory failure with hypoxia; J96.12 Chronic respiratory failure with hypercapnia; I47.19 Other supraventricular tachycardia; R07.89 Other chest pain; D72.829 Elevated white blood cell count, unspecified; B35.3 Tinea pedis; J44.9 Chronic obstructive pulmonary disease, unspecified; Z99.81 Dependence on supplemental oxygen; Z79.52 Long term (current) use of systemic steroids; I25.10 Atherosclerotic heart disease of native coronary artery without angina pectoris; I27.20 Pulmonary hypertension, unspecified; R47.9 Unspecified speech disturbances; G31.84 Mild cognitive impairment of uncertain or unknown etiology; K21.9 Gastro-esophageal reflux disease without esophagitis; W06.XXXA Fall from bed, initial encounter; R73.03 Prediabetes; E55.9 Vitamin D deficiency, unspecified; D64.9 Anemia, unspecified; I10 Essential (primary) hypertension; E78.5 Hyperlipidemia, unspecified; K08.109 Complete loss of teeth, unspecified cause, unspecified class; Z86.73 Personal history of transient ischemic attack (TIA), and cerebral infarction without residual deficits; I25.2 Old myocardial infarction; Z87.891 Personal history of nicotine dependence; R73.9 Hyperglycemia, unspecified; T38.0X5A Adverse effect of glucocorticoids and synthetic analogues, initial encounter; Z68.29 Body mass index [BMI] 29.0-29.9, adult
CPT/HCPCS: 00123; 36415; 71275; 73521; 80048; 80053; 84145; 87637; 93005; 93306; 94640; 96365; 96366; 96375; 96376; 97161; 97530; 99222; 99291; J1650; 71045; 73560; 73590; 80162; 81003; 81015; 83036; 83735; 83880; 84100; 84484; 85025; 86140; 93010; 94660; 94664; 94667; 94760; 99223; 99233; 99239; J0282; J1160; J1815; J1941; J3490; J7512; J7614; J7644

== ENCOUNTER → 2023-08-18 10:56 | Outpatient (BNVA) | payer MEDICARE, MEDICAID, SELFPAY | PROVIDERS: PCP Student in an Organized Health Care Education/Training Program; Referring Provider Student in an Organized Health Care Education/Training Program; Visit Provider Internal Medicine Cardiovascular Disease ==

== ENCOUNTER 2023-08-28 09:10 | Outpatient (CLI) | payer MEDICARE, MEDICAID, SELFPAY | END 2023-08-28 09:11 | disposition home or self-care (01) | LOC: DI.CARD 09:11 | PROVIDERS: PCP Student in an Organized Health Care Education/Training Program; Visit Provider Internal Medicine Cardiovascular Disease | CPT/HCPCS: 93010 ==

== ENCOUNTER 2023-09-02 12:07 | Outpatient (REF) | payer MEDICARE, MEDICAID, SELFPAY ==
[2023-09-02 13:13] LABS: Anion Gap 4.9 mmol/L (3-11); BUN 22 mg/dL (7-18); CO2 35.1 mmol/L (21.0-32.0); CREATININE 0.8 mg/dL (0.70-1.30); Calcium 8.7 mg/dL (8.5-10.1); Chloride 102 mmol/L (98-107); Glucose 176 mg/dL (74-106); Magnesium 2.1 mg/dL (1.8-2.4); Potassium 5.1 mmol/L (3.5-5.1); Sodium 142 mmol/L (136-145)
== END 2023-09-02 12:08 | disposition home or self-care (01) ==
LOC: LBN 12:07
PROVIDERS: PCP Student in an Organized Health Care Education/Training Program; Referring Provider Student in an Organized Health Care Education/Training Program; Visit Provider Student in an Organized Health Care Education/Training Program
DX: I10 Essential (primary) hypertension (principal); E87.8 Other disorders of electrolyte and fluid balance, not elsewhere classified
CPT/HCPCS: 80048; 83735

== ENCOUNTER → 2023-09-05 08:38 | Outpatient (BNVA) | payer MEDICARE, MEDICAID, SELFPAY | PROVIDERS: PCP Student in an Organized Health Care Education/Training Program; Referring Provider Student in an Organized Health Care Education/Training Program; Visit Provider Student in an Organized Health Care Education/Training Program | DX: J44.9 Chronic obstructive pulmonary disease, unspecified (principal); J96.11 Chronic respiratory failure with hypoxia; R91.1 Solitary pulmonary nodule; Z87.891 Personal history of nicotine dependence | CPT/HCPCS: 99214 ==

== ENCOUNTER 2023-09-15 09:22 | Outpatient (CLI) | payer MEDICARE, MEDICAID, SELFPAY | END 2023-09-15 09:23 | disposition home or self-care (01) | LOC: DI.CARD 09:23 | PROVIDERS: PCP Student in an Organized Health Care Education/Training Program; Visit Provider Internal Medicine Cardiovascular Disease | CPT/HCPCS: 93010 ==

== ENCOUNTER 2023-09-29 08:49 | Outpatient (CLI) | payer MEDICARE, MEDICAID, SELFPAY | END 2023-09-29 08:50 | disposition home or self-care (01) | LOC: DI.CARD 08:50 | PROVIDERS: PCP Student in an Organized Health Care Education/Training Program; Visit Provider Internal Medicine Cardiovascular Disease | CPT/HCPCS: 93010 ==

== ENCOUNTER 2023-10-22 15:52 | Outpatient (REF) | payer MEDICARE, MEDICAID, SELFPAY ==
[2023-10-22 14:41] LABS: ALT 26 U/L (16-63); AST 10 U/L (15-37); Albumin 3.5 g/dL (3.4-5.0); Alkaline Phosphatase 156 U/L (46-116); Anion Gap 3.9 mmol/L (3-11); BUN 18 mg/dL (7-18); Bilirubin, Total 0.1 mg/dL (0.2-1.0); CO2 37.1 mmol/L (21.0-32.0); CREATININE 0.6 mg/dL (0.70-1.30); Calcium 8.5 mg/dL (8.5-10.1); Chloride 102 mmol/L (98-107); Glucose 105 mg/dL (74-106); NT-proBNP 26 pg/mL (<300); Potassium 4.2 mmol/L (3.5-5.1); Sodium 143 mmol/L (136-145)
[2023-10-22 14:42] LABS: Total Protein 6.4 g/dL (6.4-8.2)
[2023-10-23 23:20] LABS: Lab Add On Test DONE
== END 2023-10-22 15:53 | disposition home or self-care (01) ==
LOC: LBN 15:52
PROVIDERS: PCP Student in an Organized Health Care Education/Training Program; Visit Provider Student in an Organized Health Care Education/Training Program
DX: I50.9 Heart failure, unspecified (principal); R74.8 Abnormal levels of other serum enzymes; D64.9 Anemia, unspecified
CPT/HCPCS: 80053; 83880; 83915; 85018

== ENCOUNTER 2023-10-28 14:06 | Outpatient (REF) | payer MEDICARE, MEDICAID, SELFPAY ==
[2023-10-28 12:34] LABS: Anion Gap 6.7 mmol/L (3-11); BUN 17 mg/dL (7-18); CO2 35.3 mmol/L (21.0-32.0); CREATININE 0.6 mg/dL (0.70-1.30); Calcium 8.8 mg/dL (8.5-10.1); Chloride 102 mmol/L (98-107); Cholesterol 258 mg/dL (<200); Glucose 144 mg/dL (74-106); HDL Cholesterol 41 mg/dL (40-60); Magnesium 2.2 mg/dL (1.8-2.4); Sodium 144 mmol/L (136-145); Triglyceride 691 mg/dL (<150)
[2023-10-28 12:44] LABS: LDL CHOLESTEROL 116 mg/dL (<100)
[2023-10-28 12:52] LABS: Vitamin D 25 Total 17.1 ng/mL (30-100)
== END 2023-10-28 14:07 | disposition home or self-care (01) ==
LOC: LBN 14:06
PROVIDERS: PCP Student in an Organized Health Care Education/Training Program; Visit Provider Student in an Organized Health Care Education/Training Program
DX: Z79.52 Long term (current) use of systemic steroids; R79.89 Other specified abnormal findings of blood chemistry; E55.9 Vitamin D deficiency, unspecified; R18.8 Other ascites; R73.03 Prediabetes; E78.5 Hyperlipidemia, unspecified; I10 Essential (primary) hypertension
CPT/HCPCS: 80048; 80061; 82306; 83721; 83735

== ENCOUNTER 2023-11-24 05:17 | Outpatient (RCR) | payer MEDICARE, MEDICAID, SELFPAY ==
[2023-11-18] MEDS: IRON SUCROSE COMPLEX 200 MG in Normal Saline 100 ML 440 MG IVPB (09:23)
[2023-11-18] MEDS: Normal Saline Flush 10 ML SYR IVP (09:23)
[2023-11-24] MEDS: IRON SUCROSE COMPLEX 200 MG in Normal Saline 100 ML 440 MG IVPB (08:51)
[2023-11-24] MEDS: Normal Saline Flush 10 ML SYR IVP (08:51)
[2023-12-01] MEDS: IRON SUCROSE COMPLEX 200 MG in Normal Saline 100 ML 440 MG IVPB (09:16)
[2023-12-01] MEDS: Normal Saline Flush 10 ML SYR IVP (09:16)
== END 2023-12-05 23:59 | disposition home or self-care (01) ==
LOC: INF 05:17
PROVIDERS: PCP Student in an Organized Health Care Education/Training Program; Visit Provider Student in an Organized Health Care Education/Training Program
DX: D50.9 Iron deficiency anemia, unspecified (principal)
CPT/HCPCS: 96365; J1756

== ENCOUNTER 2023-12-12 14:14 | Outpatient (REF) | payer MEDICARE, MEDICAID, SELFPAY ==
[2023-12-12 10:07] LABS: Anion Gap 3.6 mmol/L (3-11); BUN 13 mg/dL (7-18); CO2 38.4 mmol/L (21.0-32.0); CREATININE 0.7 mg/dL (0.70-1.30); Calcium 8.8 mg/dL (8.5-10.1); Chloride 100 mmol/L (98-107); Estimated GFR 100.99 (mL/min/1.73m2); Glucose 151 mg/dL (74-106); Potassium 4.5 mmol/L (3.5-5.1); Sodium 142 mmol/L (136-145)
== END 2023-12-12 14:15 | disposition home or self-care (01) ==
LOC: LBN 14:14
PROVIDERS: PCP Student in an Organized Health Care Education/Training Program; Visit Provider Student in an Organized Health Care Education/Training Program
DX: R73.09 Other abnormal glucose (principal)
CPT/HCPCS: 80048; 83735

== ENCOUNTER 2023-12-15 05:46 | Outpatient (RCR) | payer MEDICARE, MEDICAID, SELFPAY ==
[2023-12-08] MEDS: Normal Saline Flush 10 ML SYR IVP (08:50)
[2023-12-08] MEDS: IRON SUCROSE COMPLEX 200 MG in Normal Saline 100 ML 440 MG IVPB (08:50)
[2023-12-15] MEDS: IRON SUCROSE COMPLEX 200 MG in Normal Saline 100 ML 440 MG IVPB (09:34)
[2023-12-15] MEDS: Normal Saline Flush 10 ML SYR IVP (09:34)
== END 2024-01-04 23:59 | disposition home or self-care (01) ==
LOC: INF 05:46
PROVIDERS: PCP Student in an Organized Health Care Education/Training Program; Visit Provider Student in an Organized Health Care Education/Training Program
DX: D50.9 Iron deficiency anemia, unspecified (principal); D64.9 Anemia, unspecified; Z79.899 Other long term (current) drug therapy
CPT/HCPCS: 93005; 96365; 99213; J1756

== ENCOUNTER 2023-12-15 08:41 | Outpatient (CLI) | payer MEDICARE, MEDICAID, SELFPAY ==
--- NOTE | 2023-12-15 08:30 | RT.EKG_ITS ---
APPROVED REPORT Exam: Resting ECG Reason for Exam: afib Patient Location: O HR:84 bpm ECG Measurements Heart Rate 84 AXIS MI 148 P 62 QRSd 87 QRS 69 QT 350 T 42 QTc 414 Conclusion Sinus rhythm...normal P axis, V-rate 50- 99 Atrial premature complexes...SV complexes w/ short R-R intvls Consider LVH
== END 2023-12-15 08:42 | disposition home or self-care (01) ==
LOC: DI.CARD 08:42
PROVIDERS: PCP Student in an Organized Health Care Education/Training Program; Visit Provider Internal Medicine Cardiovascular Disease
DX: I47.10 Supraventricular tachycardia, unspecified (principal); I48.91 Unspecified atrial fibrillation
CPT/HCPCS: 93010

== ENCOUNTER → 2023-12-15 10:02 | Outpatient (BNVA) | payer MEDICARE, MEDICAID, SELFPAY | PROVIDERS: PCP Student in an Organized Health Care Education/Training Program; Referring Provider Student in an Organized Health Care Education/Training Program; Visit Provider Internal Medicine Cardiovascular Disease | DX: I51.7 Cardiomegaly (principal); I48.91 Unspecified atrial fibrillation; J96.21 Acute and chronic respiratory failure with hypoxia; J96.22 Acute and chronic respiratory failure with hypercapnia | CPT/HCPCS: 93005; 96365; 99213; J1756 ==

== ENCOUNTER 2023-12-26 09:51 | Outpatient (REF) | payer MEDICARE, MEDICAID, SELFPAY ==
[2023-12-26 14:04] LABS: Cholesterol 297 mg/dL (<200); HDL Cholesterol 49 mg/dL (40-60); Triglyceride 576 mg/dL (<150)
[2023-12-26 14:26] LABS: Hemoglobin A1C 5.7 % (<5.7)
[2023-12-26 14:27] LABS: LDL CHOLESTEROL 148 mg/dL (<100)
== END 2023-12-26 09:52 | disposition home or self-care (01) ==
LOC: LBN 09:51
PROVIDERS: PCP Student in an Organized Health Care Education/Training Program; Visit Provider Student in an Organized Health Care Education/Training Program
DX: E78.5 Hyperlipidemia, unspecified (principal); E11.65 Type 2 diabetes mellitus with hyperglycemia
CPT/HCPCS: 80061; 83721; 83036

== ENCOUNTER → 2024-01-20 11:28 | Outpatient (BNVA) | payer MEDICARE, MEDICAID, SELFPAY | PROVIDERS: PCP Student in an Organized Health Care Education/Training Program; Referring Provider Student in an Organized Health Care Education/Training Program; Visit Provider Internal Medicine Critical Care Medicine | DX: J44.9 Chronic obstructive pulmonary disease, unspecified (principal); J96.11 Chronic respiratory failure with hypoxia | CPT/HCPCS: 99214 ==

== ENCOUNTER 2024-03-28 19:21 | Inpatient (IN) | payer MEDICARE, MEDICAID, SELFPAY ==
[2024-03-28] VITALS (54 sets, daily range): BP systolic 165–188; BP diastolic 57–85; PULSE 96–109; RESP 3–31; TEMP 36.6; O2SAT 86–97
--- NOTE | 2024-03-28 19:15 | RT.EKG_ITS ---
APPROVED REPORT Exam: Resting ECG Reason for Exam: short of breath Patient Location: E HR:99 bpm ECG Measurements Heart Rate 99 AXIS IL 141 P 73 QRSd 96 QRS 76 QT 340 T 48 QTc 436 Conclusion Sinus rhythm...normal P axis, V-rate 60- 99 Atrial premature complex...SV complex w/ short R-R interval Left atrial enlargement...P, P'>60mS, <-0.15mV V1 sinus rhtyhm, PAC, normal axis,non ischemic
--- NOTE | 2024-03-28 19:30 | DI.RAD_ITS ---
Exam(s) XR PORTABLE CHEST AP EXAM: XR PORTABLE CHEST AP CLINICAL HISTORY: severe shortness of breath TECHNIQUE: 2D digital imaging was performed of the chest. One image was obtained. An AP view was ob tained. COMPARISON: CR,XR XR PORTABLE CHEST AP from 08/16/2023 FINDINGS: MEDIASTINUM: Normal. HEART: Normal. PULMONARY VASCULATURE: The pulmonary vasculature appears stable compared to the prior examination. LUNGS: The lungs are hyperinflated with flattened diaphragms suggesting underlying COPD. Multifocal infiltrate is present predominantly involving the lower lobes. PLEURAL SPACE: No pneumothorax is present. There is unchanged blunting of the costophrenic angles wh ich may represent scarring or tiny pleural effusion. BONE:Within normal limits for the patient's age. OTHER FINDINGS:Normal. IMPRESSION: Multifocal opacities predominantly involving the lower lobes bilaterally. This may represent a pneum onia or pulmonary edema. Please correlate clinically. DATA REPOSITORY: RADIATION DOSE DELIVERED:
--- NOTE | 2024-03-28 19:30 | RT.EKG_ITS ---
APPROVED REPORT Exam: Resting ECG Reason for Exam: respiratory distress Patient Location: E HR:96 bpm ECG Measurements Heart Rate 96 AXIS MD 138 P -65 QRSd 91 QRS 77 QT 330 T 59 QTc 416 Conclusion Sinus or ectopic atrial rhythm...P axis (-45,135) sinus rhyhtm, normal axis, nonischemic
[2024-03-28 19:42] LABS: BE (Venous) 14 mmol/L (-2-3); HCO3 (Venous) 42 mmol/L (23-28); O2 Sat (Venous) 94 %; TCO2 (Venous) 40 mmol/L (24-29); pO2 (Venous) 76 mmHg
[2024-03-28 19:44] LABS: pCO2 (Venous) 116 mmHg (41-51); pH (Venous) 7.17 (7.31-7.41)
[2024-03-28 19:46] LABS: HCT 46.2 % (40.0-50.0); MCHC 28.1 % (32.0-36.0); MCV 100 fL (80-95); MPV 9.7 fL (8.0-11.0); Platelet Count 275 10^3/uL (130-400); RBC 4.64 10^6/uL (4.36-5.78); RDW 13.8 % (11.8-14.1); RDW-SD 50.4 fL; WBC 20.59 10^3/uL (4.4-10.8)
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
[2024-03-28] MEDS: Albuterol/Ipratropium 3 ML UPD VIAL 9 ML UPD (19:56)
[2024-03-28] MEDS: AZITHROMYCIN 500 MG in Normal Saline 250 ML 250 MG IVPB (19:59)
[2024-03-28 20:00] LABS: PTT Activated 30.2 sec (23.6-32.8); Prothrombin Time 10.4 sec (9.1-11.1)
[2024-03-28] MEDS: MAGNESIUM SULFATE 1 GM/100 ML BAG IVINF (20:00)
[2024-03-28 20:03] LABS: Ammonia 39 umol/L (11-32)
[2024-03-28] MEDS: methylPREDNISolone SUCC 125 MG VIAL IVP (20:03)
[2024-03-28 20:10] LABS: ALT 36 U/L (16-63); AST 13 U/L (15-37); Albumin 3.4 g/dL (3.4-5.0); Alkaline Phosphatase 137 U/L (46-116); Anion Gap 2.4 mmol/L (3-11); BUN 20 mg/dL (7-18); Bilirubin, Total 0.32 mg/dL (0.2-1.0); CO2 42.6 mmol/L (21.0-32.0); CREATININE 0.8 mg/dL (0.70-1.30); Calcium 9.4 mg/dL (8.5-10.1); Chloride 97 mmol/L (98-107); Glucose 159 mg/dL (74-106); Magnesium 2.2 mg/dL (1.8-2.4); NT-proBNP 58 pg/mL (<300); Potassium 3.9 mmol/L (3.5-5.1); Sodium 142 mmol/L (136-145); TSH (W/Ref FT4) 0.82 uIU/mL (0.36-3.74); Total Protein 8.3 g/dL (6.4-8.2); Troponin I 20 ng/L (<or=76)
[2024-03-28 20:14] LABS: Absolute Lymphocyte Count 2.68 10^3/uL (1.2-3.4); Absolute Neutrophil Count 15.85 10^3/uL (1.2-6.7); Bands % 5 %
[2024-03-28 20:15] LABS: Absolute Monocyte Count 2.06 10^3/uL (0.1-0.8); Diff Comment Manual Differential; RBC Morphology Normal
[2024-03-28 20:27] LABS: Bilirubin Small (Negative); Blood Negative (Negative); Clarity Clear (Clear); Glucose Negative (Negative); Ketones 40 mg/dL (Negative); Leukocyte Esterase Negative (Negative); Nitrite Negative (Negative); Specific Gravity >= 1.030 (1.005-1.025); Urobilinogen 0.2 mg/dL (Up to 0.2); pH 5.5 (5-8)
[2024-03-28 20:35] LABS: COVID-19 PCR Negative (Negative); Influenza A PCR Negative (Negative); Influenza B PCR Negative (Negative); RSV PCR Negative (Negative)
[2024-03-28 20:39] LABS: Source Nasopharynx
[2024-03-28 20:42] LABS: *AMPHETAMINES SCREEN URINE Negative (Negative); *BARBITURATES SCREEN URINE Negative (Negative); *BENZODIAZEPINES SCREEN URINE Negative (Negative); Cannabinoids THC Negative (Negative); Cocaine Screen,Urine Negative (Negative); METHADONE URINE SCREEN Negative (Negative); OPIATES URINE SCREEN Negative (Negative)
[2024-03-28 20:45] LABS: WBC Negative HPF (0-5)
[2024-03-28 20:46] LABS: Bacteria Few HPF (Negative); C & S Indicated? No; Casts 3-5 Fine Granular LPF (Negative); Crystals Negative HPF (Negative); Epithelial Cells Rare HPF (Negative); Mucus Trace (Negative); Other Cells Rare Transitional (Negative); RBC 0-2 HPF (0-2)
[2024-03-28 20:48] LABS: pO2 72 mmHg (80-105); sO2 91 % (95-98)
[2024-03-28] MEDS: cefTRIAXone 1 GM/50 ML BAG IVPB (20:51)
[2024-03-28 20:52] LABS: Site Left Radial; pCO2 > 100 mmHg (35-45); pH 7.12 (7.35-7.45)
[2024-03-28 20:55] LABS: FIO2 50 %
[2024-03-28 20:57] LABS: Tricyclic Antidepressants Negative (Negative)
--- NOTE | 2024-03-28 21:01 | DI.VRAD_ITS ---
PROCEDURE INFORMATION: Exam: XR Chest Exam date and time: 03/28/2024 7:42 PM Age: 69 years old Clinical indication: Shortness of breath; Patient HX: Severe SOB TECHNIQUE: Imaging protocol: Radiologic exam of the chest. Views: 1 view. COMPARISON: CT CHEST PE CTA 08/16/2023 8:20 PM FINDINGS: Lungs: There is extensive hazy pulmonary opacity with hazy indistinctness of the pulmonary vascular margins and apparent Celso B-lines suggesting extensive interstitial pulmonary edema. The pulmonary vasculature appears somewhat engorged. Pleural spaces: There is blunting of the costophrenic angles bilaterally. No pneumothorax is seen. Heart/Mediastinum: The heart appears normal in size. The pulmonary arteries appear enlarged suggesting pulmonary hypertension. Bones/joints: The visualized bony structures appear grossly intact. IMPRESSION: 1. Extensive hazy opacity with hazy indistinctness of the pulmonary vascular margins and apparent Celso B-lines. Interstitial pulmonary edema is suspected although an acute pulmonary infection is not excluded. Clinical correlation is recommended. 2. Pulmonary arteries appear enlarged suggesting pulmonary hypertension. 3. Blunting of the costophrenic angles. Small pleural effusions or pleural thickening could have this appearance. Dictated and Authenticated by: Srinivasan Fay MD. Ordering:MAYRA Bales MD
--- NOTE | 2024-03-28 21:26 | TELEP.MEDR_ITS ---
Date of service: 03/28/24 Time of Service: 21:26 Telepharmacy Home Med Rec Allergies Allergies: albuterol Adverse Reaction (Intermediate, Verified 01/20/24 11:45) SVT/rapid heart rate atorvastatin Adverse Reaction (Verified 01/20/24 11:45) Other (See Comment) citalopram (From Celexa) Adverse Reaction (Verified 01/20/24 11:45) worsening anxiety/depression terazosin Adverse Reaction (Verified 01/20/24 11:45) Dizziness/Lightheade lobster Allergy (Uncoded 01/20/24 11:45) Dizziness/Lightheade Interview Person Interviewed: * none (Patient is unable to speak/provide history). We used retail pharmacy refill information to complete med rec. Quality Quality of Interview/Accuracy of Medication List: Fair Changes made to Home Medication List: ADDITIONS: * Aspirin 81mg PO daily * Prednisone 5mg PO daily DELETIONS: * none CHANGES: * none Additional Notes Additional Notes: * none Recommended Changes Recommended Changes(reason for recommendation): * Please follow up with patient when he's able to communicate Attestation: The home medication list is now updated to the best of my knowledge and is ready to be reconciled by the provider. Please contact the TelePharmacy Medication Reconciliation Pharmacist at for any questions.
[2024-03-28 22:39] LABS: BE (Venous) 13 mmol/L (-2-3); HCO3 (Venous) 41 mmol/L (23-28); O2 Sat (Venous) 90 %; TCO2 (Venous) 39 mmol/L (24-29); pO2 (Venous) 64 mmHg
[2024-03-28 22:41] LABS: pCO2 (Venous) 113 mmHg (41-51); pH (Venous) 7.17 (7.31-7.41)
[2024-03-28] MEDS: Ketamine 500 MG/10 ML VIAL 25 MG IVP (23:21)
--- NOTE | 2024-03-28 23:25 | HPE_ITS ---
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 interpreting results and care coordination
[2024-03-29] VITALS (100 sets, daily range): BP systolic 134–184; BP diastolic 60–80; PULSE 86–109; RESP 2–29; TEMP 36.8–37.9; O2SAT 77–95
--- NOTE | 2024-03-29 01:19 | NUR.NOTE ---
Called hospitalist Dr. Hobson regarding current pt status and plan of care. Order for one time dose of Lasix 40 mg IVP to be given NOW in ED as well as STAT ABG. MD will be in to see pt in ED to assess and come up with a plan of care going foward. Primary RN aware. MD arrived at 0120 in ED to assess pt. Discussing with HS and primary RN.
[2024-03-29] MEDS: Furosemide 40 MG/4 ML VIAL IVP (01:20)
[2024-03-29 01:30] LABS: BE 14 mmol/L (-2-3); HCO3 43 mmol/L (22-26); pO2 84 mmHg (80-105); sO2 96 % (95-98); tCO2 40 mmol/L (23-27)
[2024-03-29 01:32] LABS: FIO2 50 %; Site Left Radial
[2024-03-29 01:34] LABS: pCO2 > 100 mmHg (35-45); pH 7.17 (7.35-7.45)
[2024-03-29] MEDS: methylPREDNISolone SUCC 125 MG VIAL IVP ×3 (01:39→17:29)
[2024-03-29] MEDS: PIPERACILLIN/TAZO 3.375 GM in Normal Saline 50 ML IVPB ×2 (02:57→08:50)
[2024-03-29] MEDS: Albuterol 2.5 MG/3 ML INH SOLN VIAL UPD (04:53)
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
[2024-03-29 05:47] LABS: BE (Venous) 16 mmol/L (-2-3); HCO3 (Venous) 43 mmol/L (23-28); pH (Venous) 7.28 (7.31-7.41); pO2 (Venous) 115 mmHg
[2024-03-29 05:50] LABS: HCT 45.1 % (40.0-50.0); MCH 27.9 pg (27.0-33.0); MCHC 27.9 % (32.0-36.0); MCV 100 fL (80-95); MPV 9.9 fL (8.0-11.0); Platelet Count 243 10^3/uL (130-400); RBC 4.51 10^6/uL (4.36-5.78); RDW 13.8 % (11.8-14.1); RDW-SD 51.3 fL
[2024-03-29 05:51] LABS: pCO2 (Venous) 90 mmHg (41-51)
[2024-03-29 05:52] LABS: O2 Sat (Venous) > 99 %
[2024-03-29 06:06] LABS: ALT 38 U/L (16-63); AST 14 U/L (15-37); Albumin 3.2 g/dL (3.4-5.0); Alkaline Phosphatase 134 U/L (46-116); Anion Gap 3.5 mmol/L (3-11); BUN 27 mg/dL (7-18); Bilirubin, Total 0.17 mg/dL (0.2-1.0); CO2 42.5 mmol/L (21.0-32.0); CREATININE 1.3 mg/dL (0.70-1.30); Calcium 9.3 mg/dL (8.5-10.1); Chloride 97 mmol/L (98-107); Estimated GFR 59.84 (mL/min/1.73m2); Glucose 266 mg/dL (74-106); Potassium 3.4 mmol/L (3.5-5.1); Sodium 143 mmol/L (136-145)
[2024-03-29] MEDS: Albuterol/Ipratropium 3 ML UPD VIAL UPD ×4 (06:13→23:29)
[2024-03-29 06:15] LABS: HGB 12.6 g/dL (13.5-17.5)
[2024-03-29] MEDS: DOXYCYCLINE 100 MG in Normal Saline 100 ML IVPB ×2 (06:35→17:30)
[2024-03-29] MEDS: Insulin Aspart 300 UNITS/3 ML PEN SC ×2 (08:42→11:33)
--- NOTE | 2024-03-29 08:44 | W.PM.PROGNOT ---
Date of Service Date of service: 03/29/24 Time of Service: 08:44 Assessment and Plan Assessment and plan (1) Acute on chronic respiratory failure with hypoxia and hypercapnia: Status: Acute Assessment and plan: -patient with acute exacerbation of severe end-stage COPD on chronic continuous BiPAP at home and oxygen supplementation -he was found off his treatment and calling for EMS because of tachypnea and extreme shortness of breath. -SpO2 70% range of oxygen and off his BiPAP -placed on BiPAP in ED with significant improvement; CO2 on VBG initially 116, down to 90 AM 03/29 -continue IV solu-medrol -wean O2 on BiPAP as tolerated -will continue to monitor CO2 on VBG and discontinue BiPAP if CO2 levels continue to improve (2) Pneumonia: Start date: 03/28/24 Assessment and plan: -Bilateral infiltrates with hypoxemia and worsening respiratory status. -started on Zosyn and doxycycline -may also be component of pulmonary edema given improvement with 1x lasix on admission Qualifiers: Laterality: bilateral Lung location: unspecified part of lung Pneumonia type: due to unspecified organism Qualified Code(s): J18.9 - Pneumonia, unspecified organism (3) CHF (congestive heart failure): Status: Chronic Assessment and plan: Patient is not taking Lasix daily and will be given Lasix 40 mg IV now and twice daily with Hammonds catheter placed to monitor fluid status. Consider repeating echocardiogram. Qualifiers: Heart failure chronicity: chronic Heart failure type: right-sided Qualified Code(s): I50.812 - Chronic right heart failure (4) Paroxysmal atrial fibrillation: Status: Chronic Assessment and plan: Not on chronic anticoagulation with Lovenox DVT prophylaxis presently. He appears to be in sinus tachycardia at this time. Continue outpatient medications as tolerated. With dosing of diltiazem for now. (5) Hypertension: Status: Chronic Assessment and plan: Patient continued to be hypertensive during his acute respiratory decompensation. Continue outpatient medical therapy as tolerated. Consider IV therapy if not able to take p.o. Qualifiers: Hypertension type: primary hypertension Qualified Code(s): I10 - Essential (primary) hypertension (6) Hyperlipidemia: Status: Chronic Assessment and plan: Patient is on outpatient statin therapy with continuation during hospital stay. He has high risk for CAD but no evidence of decompensation with negative troponins. Qualifiers: Hyperlipidemia type: mixed hyperlipidemia Qualified Code(s): E78.2 - Mixed hyperlipidemia Subjective Subjective Interval history since last seen: Patient able to state that he is feeling much better this AM. He understands that we will continue with BiPAP therapy this morning and may be to allow for brief periods without it later in the day. Exam Narrative Exam Narrative: chronically ill appearing gentleman laying in bed in no acute distress, AOx4, BiPAP in place, heart RRR, lungs with course upper airway sounds and somewhat diminished in bilateral bases, abdomen soft, non-tender, non-distended Objective Last Vital Signs Temp 98.6 F 03/29/24 04:25 Pulse 93 H 03/29/24 08:08 Resp 23 03/29/24 08:08 BP 146/64 H 03/29/24 06:01 Pulse Ox 94 03/29/24 08:08 Laboratory Results - last 24 hr 03/28/24 03/28/24 03/28/24 18:30 19:30 19:32 WBC 20.59 H RBC 4.64 Hgb 13.0 L Hct 46.2 MCV 100 H MCH 28.0 MCHC 28.1 L RDW 13.8 Plt Count 275 MPV 9.7 Immature Gran % 0.0 Neutrophils % 72.0 Band Neutrophils % 5 Lymphocytes % 13.0 Monocytes % 10.0 Eosinophils % 0.0 Basophils % 0.0 Nucleated RBC % 0.0 Absolute Neutrophils 15.85 H Absolute Lymphocytes 2.68 Absolute Monocytes 2.06 H Absolute Eosinophils 0.00 Absolute Basophils 0.00 RBC Morphology Normal PT 10.4 INR 1.0 APTT 30.2 ABG Sample Site ABG pH ABG pCO2 ABG pO2 ABG HCO3 ABG Total CO2 ABG O2 Saturation ABG Base Excess VBG pH 7.17 L* VBG pCO2 116 H* VBG pO2 76 VBG HCO3 42 H VBG Total CO2 40 H VBG O2 Saturation 94 VBG Base Excess 14 H FiO2 Sodium 142 Potassium 3.9 Chloride 97 L Carbon Dioxide 42.6 H Anion Gap 2.4 L BUN 20 H Creatinine 0.8 Est GFR (CKD-EPI 2020) 96.40 Glucose 159 H Calcium 9.4 Magnesium 2.2 Total Bilirubin 0.32 AST 13 L ALT 36 Alkaline Phosphatase 137 H Ammonia Troponin I 20 NT-Pro-B Natriuret Pep 58 Total Protein 8.3 H Albumin 3.4 TSH 0.82 Urine Color Urine Clarity Urine pH Ur Specific Warren Urine Protein Urine Ketones Urine Blood Urine Nitrite Urine Bilirubin Urine Urobilinogen Ur Leukocyte Esterase Urine RBC Urine WBC Ur Epithelial Cells Urine Crystals Urine Bacteria Urine Casts Urine Mucus Urine Other Ur Culture Indicated? Urine Glucose Urine Opiates Screen Urine Methadone Screen Ur Barbiturates Screen Ur Tricyclics Screen Ur Amphetamines Screen U Benzodiazepines Scrn Urine Cocaine Screen Ur THC Screen COVID-19 Source Nasopharynx SARS-CoV-2 (PCR) Negative Influenza Type A (PCR) Negative Influenza Type B (PCR) Negative RSV (PCR) Negative 03/28/24 03/28/24 03/28/24 19:50 20:16 20:30 WBC RBC Hgb Hct MCV MCH MCHC RDW Plt Count MPV Immature Gran % Neutrophils % Band Neutrophils % Lymphocytes % Monocytes % Eosinophils % Basophils % Nucleated RBC % Absolute Neutrophils Absolute Lymphocytes Absolute Monocytes Absolute Eosinophils Absolute Basophils RBC Morphology PT INR APTT ABG Sample Site ABG pH ABG pCO2 ABG pO2 ABG HCO3 ABG Total CO2 ABG O2 Saturation ABG Base Excess VBG pH VBG pCO2 VBG pO2 VBG HCO3 VBG Total CO2 VBG O2 Saturation VBG Base Excess FiO2 Sodium Potassium Chloride Carbon Dioxide Anion Gap BUN Creatinine Est GFR (CKD-EPI 2020) Glucose Calcium Magnesium Total Bilirubin AST ALT Alkaline Phosphatase Ammonia 39 H Troponin I Cancelled NT-Pro-B Natriuret Pep Total Protein Albumin TSH Urine Color Yellow Urine Clarity Clear Urine pH 5.5 Ur Specific Warren >= 1.030 H Urine Protein 100 H Urine Ketones 40 H Urine Blood Negative Urine Nitrite Negative Urine Bilirubin Small H Urine Urobilinogen 0.2 Ur Leukocyte Esterase Negative Urine RBC 0-2 Urine WBC Negative Ur Epithelial Cells Rare Urine Crystals Negative Urine Bacteria Few Urine Casts 3-5 Fine Granular Urine Mucus Trace Urine Other Rare Transitional Ur Culture Indicated? No Urine Glucose Negative Urine Opiates Screen Negative Urine Methadone Screen Negative Ur Barbiturates Screen Negative Ur Tricyclics Screen Negative Ur Amphetamines Screen Negative U Benzodiazepines Scrn Negative Urine Cocaine Screen Negative Ur THC Screen Negative COVID-19 Source SARS-CoV-2 (PCR) Influenza Type A (PCR) Influenza Type B (PCR) RSV (PCR) 03/28/24 03/28/24 03/29/24 20:32 22:35 01:20 WBC RBC Hgb Hct MCV MCH MCHC RDW Plt Count MPV Immature Gran % Neutrophils % Band Neutrophils % Lymphocytes % Monocytes % Eosinophils % Basophils % Nucleated RBC % Absolute Neutrophils Absolute Lymphocytes Absolute Monocytes Absolute Eosinophils Absolute Basophils RBC Morphology PT INR APTT ABG Sample Site Left Radial Left Radial ABG pH 7.12 L* 7.17 L* ABG pCO2 > 100 H* > 100 H* ABG pO2 72 L 84 ABG HCO3 43 H ABG Total CO2 Not Applicable 40 H ABG O2 Saturation 91 L 96 ABG Base Excess 14 H VBG pH 7.17 L* VBG pCO2 113 H* VBG pO2 64 VBG HCO3 41 H VBG Total CO2 39 H VBG O2 Saturation 90 VBG Base Excess 13 H FiO2 50 50 Sodium Potassium Chloride Carbon Dioxide Anion Gap BUN Creatinine Est GFR (CKD-EPI 2020) Glucose Calcium Magnesium Total Bilirubin AST ALT Alkaline Phosphatase Ammonia Troponin I NT-Pro-B Natriuret Pep Total Protein Albumin TSH Urine Color Urine Clarity Urine pH Ur Specific Warren Urine Protein Urine Ketones Urine Blood Urine Nitrite Urine Bilirubin Urine Urobilinogen Ur Leukocyte Esterase Urine RBC Urine WBC Ur Epithelial Cells Urine Crystals Urine Bacteria Urine Casts Urine Mucus Urine Other Ur Culture Indicated? Urine Glucose Urine Opiates Screen Urine Methadone Screen Ur Barbiturates Screen Ur Tricyclics Screen Ur Amphetamines Screen U Benzodiazepines Scrn Urine Cocaine Screen Ur THC Screen COVID-19 Source SARS-CoV-2 (PCR) Influenza Type A (PCR) Influenza Type B (PCR) RSV (PCR) 03/29/24 05:30 WBC 14.80 H RBC 4.51 Hgb 12.6 L Hct 45.1 MCV 100 H MCH 27.9 MCHC 27.9 L RDW 13.8 Plt Count 243 MPV 9.9 Immature Gran % Neutrophils % Band Neutrophils % Lymphocytes % Monocytes % Eosinophils % Basophils % Nucleated RBC % Absolute Neutrophils Absolute Lymphocytes Absolute Monocytes Absolute Eosinophils Absolute Basophils RBC Morphology PT INR APTT ABG Sample Site ABG pH ABG pCO2 ABG pO2 ABG HCO3 ABG Total CO2 ABG O2 Saturation ABG Base Excess VBG pH 7.28 L VBG pCO2 90 H* VBG pO2 115 VBG HCO3 43 H VBG Total CO2 VBG O2 Saturation > 99 VBG Base Excess 16 H FiO2 Sodium 143 Potassium 3.4 L Chloride 97 L Carbon Dioxide 42.5 H Anion Gap 3.5 BUN 27 H Creatinine 1.3 Est GFR (CKD-EPI 2020) 59.84 Glucose 266 H Calcium 9.3 Magnesium Total Bilirubin 0.17 L AST 14 L ALT 38 Alkaline Phosphatase 134 H Ammonia Troponin I NT-Pro-B Natriuret Pep Total Protein 8.0 Albumin 3.2 L TSH Urine Color Urine Clarity Urine pH Ur Specific Warren Urine Protein Urine Ketones Urine Blood Urine Nitrite Urine Bilirubin Urine Urobilinogen Ur Leukocyte Esterase Urine RBC Urine WBC Ur Epithelial Cells Urine Crystals Urine Bacteria Urine Casts Urine Mucus Urine Other Ur Culture Indicated? Urine Glucose Urine Opiates Screen Urine Methadone Screen Ur Barbiturates Screen Ur Tricyclics Screen Ur Amphetamines Screen U Benzodiazepines Scrn Urine Cocaine Screen Ur THC Screen COVID-19 Source SARS-CoV-2 (PCR) Influenza Type A (PCR) Influenza Type B (PCR) RSV (PCR) Time Spent with Patient Time Spent with Patient: >50 minutes Time was spent: preparing to see the patient(eg.review tests), obtaining and/or reviewing separately otained hiistory, ordering medications,tests, procedures, referring, communicating with other health rn intensive care unit, indepentently interpreting results, counseling the patient and care coordination
[2024-03-29] MEDS: Pantoprazole 40 MG VIAL IVP (08:58)
[2024-03-29] MEDS: Enoxaparin 40 MG/0.4 ML SYR SC (08:58)
[2024-03-29] MEDS: Clotrimazole 1% 15 GM TUBE TP ×2 (08:59→21:34)
[2024-03-29] MEDS: Normal Saline Flush 10 ML SYR IVP ×4 (08:59→21:40)
[2024-03-29 11:11] LABS: BE (Venous) 21 mmol/L (-2-3); HCO3 (Venous) 46 mmol/L (23-28); O2 Sat (Venous) 95 %; TCO2 (Venous) 42 mmol/L (24-29); pH (Venous) 7.36 (7.31-7.41); pO2 (Venous) 65 mmHg
[2024-03-29 11:14] LABS: pCO2 (Venous) 81 mmHg (41-51)
[2024-03-29] MEDS: dilTIAZem 25 MG/5 ML VIAL 5 MG IVP ×2 (12:38→18:07)
[2024-03-29 12:40] LABS: BE (Venous) 22 mmol/L (-2-3); HCO3 (Venous) 47 mmol/L (23-28); O2 Sat (Venous) 96 %; TCO2 (Venous) 43 mmol/L (24-29); pO2 (Venous) 67 mmHg
[2024-03-29 12:44] LABS: pCO2 (Venous) 77 mmHg (41-51)
--- NOTE | 2024-03-29 13:36 | RESPIRATORY ---
Addendum entered by Jina Johns 03/29/24 14:13: 1400-Abby Cortez called back and advised they will have someone from [facility] come out tomorrow to inspect home machine Original Note: 03/29-Left message for Abby Cortez with [facility] about sending someone to come check out patient's home [facility] as he advised he is having issues with it.
--- NOTE | 2024-03-29 13:50 | PHACLINREV_ITS ---
Pharmacy Admission Review Admission Clinical Review Admission Pharmacy Review: Acute on chronic respiratory failure with hypoxia and hypercapnia (Acute) Hypercarbia (Acute) Acute exacerbation of chronic obstructive pulmonary disease (Acute) Acute respiratory failure with hypoxia and hypercarbia (Acute) albuterol Adverse Reaction (Intermediate, Verified 03/29/24 00:46) SVT/rapid heart rate atorvastatin Adverse Reaction (Verified 03/29/24 00:46) Other (See Comment) citalopram (From Celexa) Adverse Reaction (Verified 03/29/24 00:46) worsening anxiety/depression terazosin Adverse Reaction (Verified 03/29/24 00:46) Dizziness/Lightheade lobster Allergy (Uncoded 03/29/24 00:46) Dizziness/Lightheade Resuscitation Status DNI Height 5 ft 10 in Weight 95 kg Pharmacy Admission Review Renal Dosing Renal Dosing: BUN 27 mg/dL (7-18) H 03/29/24 05:30 Creatinine 1.3 mg/dL (0.70-1.30) 03/29/24 05:30 Medications needing adjustments: Reviewed (CrCl 62.9 mL/min, BUN increased from 20 and SCr increased from 0.8) List of meds needing interventions: Current medications are okay Anticoagulation Anticoagulation: Hgb 12.6 g/dL (13.5-17.5) L 03/29/24 05:30 Hct 45.1 % (40.0-50.0) 03/29/24 05:30 Plt Count 243 10^3/uL (130-400) 03/29/24 05:30 INR 1.0 (0.9-1.1) 03/28/24 19:30 Creatinine 1.3 mg/dL (0.70-1.30) 03/29/24 05:30 DVT Prophylaxis: Reviewed (Hgb decreased from 13) Medications: Enoxaparin (40MG DAILY) Relevant Labs Relevant Labs: Sodium 143 mmol/L (136-145) 03/29/24 05:30 Potassium 3.4 mmol/L (3.5-5.1) L 03/29/24 05:30 Chloride 97 mmol/L (98-107) L 03/29/24 05:30 Magnesium 2.2 mg/dL (1.8-2.4) 03/28/24 19:30 Electrolytes, C-Reactive P, ESR: Reviewed (K 3.4) DM Control DM Control: Glucose 266 mg/dL (74-106) H 03/29/24 05:30 Finger Stick Blood Glucose 179 1133 Finger Stick Blood Glucose 179 1130 Finger Stick Blood Glucose 179 1130 Finger Stick Blood Glucose 243 0842 Finger Stick Blood Glucose 243 0730 Finger Stick Blood Glucose 243 0729 Finger Stick Blood Glucose 243 0729 DM Control: Reviewed Insulin Dosing, Diabetic Medication: Has order for SS insulin Cardiac Review Cardiac Review: Troponin I Cancelled 03/28/24 20:30 NT-Pro-B Natriuret Pep 58 pg/mL (<300) 03/28/24 19:30 BP, HR, EF%: Reviewed (BP WNL, HR 91, Ox 89) List meds needing interventions: Has order for diltiazem 5mg IB Pq6h, diltiazem 60mg PO q6h (on hold) and furosemide 40mg PO BID (on hold) QTc Review QTc: Reviewed (416 from 03/28/24) IV to PO Switch IV Medications: Reviewed (diltiazem, doxycycline, methylprednisolone, pantoprazole and Zosyn. Per provider, patient having trouble tolerating PO meds) Home Meds Home Med List reviewed: Intervened Relevent Home Meds Not ordered & why?: Symbicort, omeprazole (has order for pantoprazole), prednisone (has order for methylprednisolone) and Spiriva Reached out to provider regarding Symbicort and Spiriva, waiting to hear back. Current Meds Current Medication Order Review: Intervened Comments: Added 2nd PRN to albuterol order per pharmacy protocol Retimed methylprednisolone to be on even hour per pharmacy protocol Pharmacy Antibiotic Review Relevant Labs: WBC 14.80 10^3/uL (4.4-10.8) H 03/29/24 05:30 Temperature 37.4 C Temperature 37.1 C Temperature 37.0 C Pharmacy Antibiotic Activity: Abx regimen adjustment (increased Zosyn dose) and C/S review (blood cultures pending) Comments: Patient is on Zosyn (2 doses) and doxycycline (1 dose), day 1, for pneumonia. Zosyn was put in as 3.375g q6h, reached out to provider as rec ommended dose for pneumonia is 4.5g q6h. Provider as okay with the order being changed to higher dose. Blood cultures are pending, WBC decreased from 20.59 and patient remains afebrile.
[2024-03-29] MEDS: PIPERACILLIN/TAZO 4.5 GM in Normal Saline 100 ML IVPB ×2 (14:49→21:34)
[2024-03-29] MEDS: Acetaminophen 325 MG TAB PO (15:48)
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
[2024-03-29] MEDS: Hyaluronidase 150 UNITS VIAL 15 UNITS SC (20:27)
[2024-03-30] VITALS (50 sets, daily range): BP systolic 130–185; BP diastolic 56–98; PULSE 80–115; RESP 3–27; TEMP 36.8–37; O2SAT 81–111
[2024-03-30] MEDS: dilTIAZem 25 MG/5 ML VIAL 5 MG IVP ×5 (00:11→23:48)
[2024-03-30] MEDS: methylPREDNISolone SUCC 125 MG VIAL IVP ×3 (02:23→19:46)
[2024-03-30] MEDS: PIPERACILLIN/TAZO 4.5 GM in Normal Saline 100 ML IVPB ×4 (02:23→22:38)
[2024-03-30] MEDS: Albuterol/Ipratropium 3 ML UPD VIAL UPD ×4 (05:29→23:36)
[2024-03-30] MEDS: DOXYCYCLINE 100 MG in Normal Saline 100 ML IVPB ×2 (05:52→19:47)
[2024-03-30 06:10] LABS: HCT 43.7 % (40.0-50.0); HGB 12.3 g/dL (13.5-17.5); MCHC 28.1 % (32.0-36.0); MCV 100 fL (80-95); MPV 9.6 fL (8.0-11.0); Platelet Count 247 10^3/uL (130-400); RBC 4.39 10^6/uL (4.36-5.78); RDW 13.6 % (11.8-14.1); RDW-SD 50.2 fL; WBC 17.19 10^3/uL (4.4-10.8)
[2024-03-30 06:23] LABS: BUN 31 mg/dL (7-18); Calcium 9.6 mg/dL (8.5-10.1); Chloride 100 mmol/L (98-107); Estimated GFR 81.98 (mL/min/1.73m2); Glucose 198 mg/dL (74-106); Potassium 3.5 mmol/L (3.5-5.1); Sodium 145 mmol/L (136-145)
[2024-03-30 06:27] LABS: Anion Gap -0.00001 mmol/L (3-11); CO2 > 45.0 mmol/L (21.0-32.0)
[2024-03-30] MEDS: Albuterol 2.5 MG/3 ML INH SOLN VIAL UPD (08:14)
[2024-03-30] MEDS: Enoxaparin 40 MG/0.4 ML SYR SC (08:23)
[2024-03-30] MEDS: Pantoprazole 40 MG VIAL IVP (08:23)
[2024-03-30] MEDS: Normal Saline Flush 10 ML SYR IVP ×5 (08:24→19:47)
[2024-03-30] MEDS: Insulin Aspart 300 UNITS/3 ML PEN SC ×4 (08:26→22:40)
[2024-03-30] MEDS: Clotrimazole 1% 15 GM TUBE TP (08:48)
[2024-03-30] MEDS: Furosemide 40 MG/4 ML VIAL IVP ×2 (10:34→15:52)
--- NOTE | 2024-03-30 10:46 | W.PM.PROGNOT ---
Date of Service Date of service: 03/30/24 Time of Service: 10:46 Assessment and Plan Assessment and plan (1) Acute on chronic respiratory failure with hypoxia and hypercapnia: Status: Acute Assessment and plan: -patient with acute exacerbation of severe end-stage COPD on chronic continuous BiPAP at home and oxygen supplementation -he was found off his treatment and calling for EMS because of tachypnea and extreme shortness of breath. -SpO2 70% range of oxygen and off his BiPAP -placed on BiPAP in ED with significant improvement; CO2 on VBG initially 116, down to 90 AM 03/29 -continue IV solu-medrol -wean O2 on BiPAP as tolerated -will continue to monitor CO2 on VBG and discontinue BiPAP if CO2 levels continue to improve (2) Pneumonia: Start date: 03/28/24 Assessment and plan: -Bilateral infiltrates with hypoxemia and worsening respiratory status. -started on Zosyn and doxycycline -may also be component of pulmonary edema given improvement with 1x lasix on admission Qualifiers: Pneumonia type: due to unspecified organism Laterality: bilateral Lung location: unspecified part of lung Qualified Code(s): J18.9 - Pneumonia, unspecified organism (3) CHF (congestive heart failure): Status: Chronic Assessment and plan: -had been taking lasiv PRN -was given 40mg IV on admission -given that patient sounds wet on exam today and continues with labile SpO2 have started 40mg lasix IV BID Qualifiers: Heart failure type: right-sided Heart failure chronicity: chronic Qualified Code(s): I50.812 - Chronic right heart failure (4) Paroxysmal atrial fibrillation: Status: Chronic Assessment and plan: Not on chronic anticoagulation with Lovenox DVT prophylaxis presently. He appears to be in sinus tachycardia at this time. Continue outpatient medications as tolerated. With dosing of diltiazem for now. (5) Hypertension: Status: Chronic Assessment and plan: Patient continued to be hypertensive during his acute respiratory decompensation. Continue outpatient medical therapy as tolerated. Consider IV therapy if not able to take p.o. Qualifiers: Hypertension type: primary hypertension Qualified Code(s): I10 - Essential (primary) hypertension (6) Hyperlipidemia: Status: Chronic Assessment and plan: Patient is on outpatient statin therapy with continuation during hospital stay. He has high risk for CAD but no evidence of decompensation with negative troponins. Qualifiers: Hyperlipidemia type: mixed hyperlipidemia Qualified Code(s): E78.2 - Mixed hyperlipidemia Subjective Subjective Interval history since last seen: Patient states that he is feeling better today. He understands we are continuing to work on clearing his lungs and his O2 requirement, and has no other complaints or concerns at this time. Exam Narrative Exam Narrative: chronically ill appearing gentleman laying in bed in no acute distress, AOx4, BiPAP in place, heart RRR, lungs with course upper airway sounds and somewhat diminished in bilateral bases, abdomen soft, non-tender, non-distended Objective Last Vital Signs Temp 98.6 F 03/30/24 08:05 Pulse 108 H 03/30/24 09:06 Resp 24 03/30/24 09:06 BP 156/84 H 03/30/24 08:05 Pulse Ox 85 L 03/30/24 10:27 Laboratory Results - last 24 hr 03/29/24 03/29/24 03/30/24 11:00 12:32 06:00 WBC 17.19 H RBC 4.39 Hgb 12.3 L Hct 43.7 MCV 100 H MCH 28.0 MCHC 28.1 L RDW 13.6 Plt Count 247 MPV 9.6 VBG pH 7.36 7.40 VBG pCO2 81 H* 77 H* VBG pO2 65 67 VBG HCO3 46 H 47 H VBG Total CO2 42 H 43 H VBG O2 Saturation 95 96 VBG Base Excess 21 H 22 H Sodium 145 Potassium 3.5 Chloride 100 Carbon Dioxide > 45.0 H Anion Gap -0.32448 L BUN 31 H Creatinine 1.0 Est GFR (CKD-EPI 2020) 81.98 Glucose 198 H Calcium 9.6 Time Spent with Patient Time Spent with Patient: >50 minutes Time was spent: preparing to see the patient(eg.review tests), obtaining and/or reviewing separately otained hiistory, ordering medications,tests, procedures, referring, communicating with other health animal care assistant, indepentently interpreting results, counseling the patient and care coordination
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
--- NOTE | 2024-03-30 14:10 | PDOC.CMPRO ---
Date of service: 03/30/24 Time of Service: 14:10 Care Management Progress Note Progress Note Text Progress Note Text: Dave was in the bed, HOB elevated, when CM met with him earlier today. He was fairly talkative today, but continues to be very difficult to understand. CM did ask if he would want to go to SNF to get stronger before going home. He shook his head, no, but also had a lot of words that were garbled. CM asked Rehab? Thumbs up? He clearly responded, No. CM called, Lesly Dave's [employer] contact. She was not able to give me much information. She is not his caregiver and is not his girlfriend, We just live together. Lesly told CM that he was not doing so good prior to coming to the hospital. Discharge Potential Discharge Needs: PT Evaluation and PCP F/U Appt Anticipated Barriers to Discharge: Medical Status Patient/Family Education Needs: Review discharge instructions, discuss Ask Me Three Plan: Anticipate that Dave will be discharged home with resumption of his [facility] caregivers daily. He will continue with HH RN. He will f/u with his PCP and Palliative Care, and continue per his plan of care. CM will check in daily regarding Dave's goals and continue to follow. SDOH(Care Management) Screening Will the Patient Participate in the Screening?: Yes Do you worry about having a steady place to live?: no Problems where you live: no known problems In the past 12 months, have you had to go without electric, gas, oil or water in your home?: choose not to answer Have you or anyone in your house had to go without enough food to eat?: no Has lack of transportation kept you from medical appointments or from doing things needed for daily living?: yes Has anyone in your support network made you feel unsafe for any reason?: no Health Related Social Needs Health related social needs: transportation insecurity(Z59.82) Health related social needs details: pt has some concerns with housing but I am unable to understand his issues at this time. Anticipated HH Services Anticipated HH Services at Discharge [facility], RN.
[2024-03-31] VITALS (21 sets, daily range): BP systolic 143–174; BP diastolic 59–98; PULSE 83–110; RESP 3–26; TEMP 36.1–36.9; O2SAT 86–99
--- NOTE | 2024-03-31 | DI.RAD_ITS ---
Exam(s) XR PORTABLE CHEST AP EXAM: XR PORTABLE CHEST AP CLINICAL HISTORY: hypoxia. TECHNIQUE: 2D digital imaging was performed. COMPARISON: CT CT CHEST PE CTA from 08/16/2023 CR,XR XR PORTABLE CHEST AP from 03/28/2024 FINDINGS: Single AP portable view. Heart size is upper normal-minimally prominent.. The mediastinum is not widened. There is COPD findings again noted. There are again noted increased interstitial markings in the lat eral right lung base/Celso B lines. However, the remainder of the lung ford appear somewhat impro julian when compared to 03/28/2024. No large pleural effusions. IMPRESSION: Persistent Celso B lines in the lateral right lung base. Remainder of the lung ford appear somewh at improved when compared to 3 days ago. COPD findings again evident. DATA REPOSITORY: RADIATION DOSE DELIVERED:
[2024-03-31] MEDS: methylPREDNISolone SUCC 125 MG VIAL IVP ×2 (02:06→09:13)
[2024-03-31] MEDS: PIPERACILLIN/TAZO 4.5 GM in Normal Saline 100 ML IVPB ×3 (04:29→18:17)
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
--- NOTE | 2024-03-31 04:55 | NUR.NOTE ---
Dr Borrego in and transferred pt to med surg
[2024-03-31] MEDS: Albuterol/Ipratropium 3 ML UPD VIAL UPD ×4 (05:10→23:34)
[2024-03-31] MEDS: dilTIAZem 25 MG/5 ML VIAL 5 MG IVP ×2 (06:02→11:50)
[2024-03-31] MEDS: Normal Saline Flush 10 ML SYR IVP ×4 (06:05→20:14)
[2024-03-31] MEDS: DOXYCYCLINE 100 MG in Normal Saline 100 ML IVPB ×2 (07:00→19:59)
[2024-03-31 07:02] LABS: HCT 44.6 % (40.0-50.0); HGB 13.1 g/dL (13.5-17.5); MCH 28.2 pg (27.0-33.0); MCHC 29.4 % (32.0-36.0); MCV 96 fL (80-95); MPV 9.7 fL (8.0-11.0); Platelet Count 270 10^3/uL (130-400); RBC 4.64 10^6/uL (4.36-5.78); RDW 13.8 % (11.8-14.1); RDW-SD 48.9 fL; WBC 16.64 10^3/uL (4.4-10.8)
[2024-03-31 07:17] LABS: BUN 39 mg/dL (7-18); Calcium 9.4 mg/dL (8.5-10.1); Chloride 94 mmol/L (98-107); Estimated GFR 81.98 (mL/min/1.73m2); Glucose 152 mg/dL (74-106); Potassium 3.6 mmol/L (3.5-5.1); Sodium 141 mmol/L (136-145)
[2024-03-31 07:20] LABS: Anion Gap 1.99999 mmol/L (3-11); CO2 > 45.0 mmol/L (21.0-32.0)
[2024-03-31] MEDS: Potassium Chloride 20 MEQ TABCR PO (08:21)
[2024-03-31] MEDS: Enoxaparin 40 MG/0.4 ML SYR SC (08:21)
[2024-03-31] MEDS: Pantoprazole 40 MG VIAL IVP (09:12)
[2024-03-31] MEDS: Furosemide 40 MG/4 ML VIAL IVP ×2 (09:13→16:50)
[2024-03-31] MEDS: Clotrimazole 1% 15 GM TUBE TP (09:41)
[2024-03-31] MEDS: Insulin Aspart 300 UNITS/3 ML PEN SC ×4 (09:43→22:59)
[2024-03-31 11:13] LABS: Bilirubin Negative (Negative); Blood Large (Negative); Clarity Clear (Clear); Glucose Negative (Negative); Ketones Negative (Negative); Leukocyte Esterase Negative (Negative); Nitrite Negative (Negative); Specific Gravity 1.015 (1.005-1.025); Urobilinogen 0.2 mg/dL (Up to 0.2)
[2024-03-31 11:24] LABS: WBC Negative HPF (0-5)
[2024-03-31 11:25] LABS: Bacteria Few HPF (Negative); C & S Indicated? No; Casts Negative LPF (Negative); Crystals Negative HPF (Negative); Epithelial Cells Negative HPF (Negative); Mucus Trace (Negative); Other Cells Negative (Negative); RBC >50 HPF (0-2)
--- NOTE | 2024-03-31 13:40 | CMPROGNOTE_ITS ---
Date of service: 03/31/24 Time of Service: 11:00 Care Management Progress Note Progress Note Text Progress Note Text: Dave was sitting up in the bed when CM met with him today. Dave's C CM, Elvie Levine, was also present. Dave was easily engaged, but again, very difficult to understand. Both with and without his Trilogy mask, his speech is garbled and rushed. CM again spoke with Dave regarding short-term rehab prior to going home. He was more agreeable today. Discharge Potential Discharge Needs: PT Evaluation and PCP F/U Appt Anticipated Barriers to Discharge: Medical Status Patient/Family Education Needs: Review discharge instructions, discuss Ask Me Three and Other Transportation: RCT RCT Transportation: Wheel chair van Plan: Anticipate that Dave will be transferred to SNF, or to home with resumption of his [facility] caregivers, HH RN and new PT services. He will f/u with his PCP and Palliative Care, and continue per his plan of care. CM will check in daily regarding Dave's goals and continue to follow. SDOH(Care Management) Screening Will the Patient Participate in the Screening?: Yes Do you worry about having a steady place to live?: no Problems where you live: no known problems In the past 12 months, have you had to go without electric, gas, oil or water in your home?: choose not to answer Have you or anyone in your house had to go without enough food to eat?: no Has lack of transportation kept you from medical appointments or from doing things needed for daily living?: yes Has anyone in your support network made you feel unsafe for any reason?: no Health Related Social Needs Health related social needs: transportation insecurity(Z59.82) Health related social needs details: pt has some concerns with housing but I am unable to understand his issues at this time. Anticipated HH Services Anticipated HH Services at Discharge [facility], PT (resumption of RN ?PT vs SNF).
--- NOTE | 2024-03-31 16:17 | CHAPLAIN ---
I had a brief visit with Dave. He had his BiPaP machine on and was taking it off to talk with me so I didn't stay long. I explained my role and offered support. He said he thinks he's getting out of this place today.
--- NOTE | 2024-03-31 16:47 | W.PM.PROGNOT ---
Date of Service Date of service: 03/31/24 Time of Service: 16:48 Assessment and Plan Assessment and plan (1) Acute on chronic respiratory failure with hypoxia and hypercapnia: Status: Acute Assessment and plan: -patient with acute exacerbation of severe end-stage COPD on Trilogy device at home and oxygen supplementation -he was found off his treatment and calling for EMS because of tachypnea and extreme shortness of breath. Per device disability specialist the issue may have been patricia's vaporub clogging the mask. This has been replaced. -placed on BiPAP in ED with significant improvement; CO2 on VBG initially 116, down to 77 on 03/29 with normalization of pH -has been on IV solu-medrol, start to taper -wean O2 on BiPAP as tolerated -will continue to monitor CO2 on VBG -he has a tenous baseline, we may be approaching this. (2) Pneumonia: Start date: 03/28/24 Assessment and plan: -Bilateral infiltrates with hypoxemia and worsening respiratory status. -started on Zosyn and doxycycline, now day #4 -may also be component of pulmonary edema given improvement with 1x lasix on admission Qualifiers: Pneumonia type: due to unspecified organism Laterality: bilateral Lung location: unspecified part of lung Qualified Code(s): J18.9 - Pneumonia, unspecified organism (3) CHF (congestive heart failure): Status: Chronic Assessment and plan: -Normal LV and RV function on 08/30 echo -had been taking lasiv PRN -was given 40mg IV on admission, then oral as admission CXR suggested CHF -given that patient sounded wet on exam today and continues with labile SpO2, 40mg lasix IV BID started 03/30. I'm not sure there is a clear clinical response. Will repeat CXR. Qualifiers: Heart failure type: right-sided Heart failure chronicity: chronic Qualified Code(s): I50.812 - Chronic right heart failure (4) Paroxysmal atrial fibrillation: Status: Chronic Assessment and plan: Not on chronic anticoagulation with Lovenox DVT prophylaxis presently. He appears to be in sinus tachycardia at this time. Resume outpatient medications including oral long acting diltiazem and amiodarone. (5) Hypertension: Status: Chronic Assessment and plan: Blood pressure improved, will transition back to oral diltiazem. Qualifiers: Hypertension type: primary hypertension Qualified Code(s): I10 - Essential (primary) hypertension (6) End stage COPD: Status: Chronic Assessment and plan: as above, will resume outpatient inhalers. Appreciated palliative care help Subjective Subjective Patient reports: tolerating a regular diet, voiding w/o difficulty and shortness of breath; denies diarrhea, vomiting or fever Interval history since last seen: He continues to feel quite SOB. No chest pain. Not dizzy sitting up right now. Exam Narrative Exam Narrative: Sitting up on commode, BiPAP in place, in no acute distress, AOx4. heart RRR without murmur. Lungs with course upper airway sounds and diminished in bilateral bases, no overt rales or wheezes. Abdomen soft, non-tender, non-distended. Extremities non-tender with trace bilateral edema. Objective Last Vital Signs Temp 36.2 C L 03/31/24 15:25 Pulse 102 H 03/31/24 15:25 Resp 20 03/31/24 15:25 BP 152/88 H 03/31/24 15:25 Pulse Ox 86 L 03/31/24 15:25 Laboratory Results - last 24 hr 03/31/24 03/31/24 06:50 11:00 WBC 16.64 H RBC 4.64 Hgb 13.1 L Hct 44.6 MCV 96 H D MCH 28.2 MCHC 29.4 L RDW 13.8 Plt Count 270 MPV 9.7 Sodium 141 Potassium 3.6 Chloride 94 L Carbon Dioxide > 45.0 H Anion Gap 1.06503 L BUN 39 H Creatinine 1.0 Est GFR (CKD-EPI 2020) 81.98 Glucose 152 H Calcium 9.4 Urine Color Straw Urine Clarity Clear Urine pH 6.0 Ur Specific [place] 1.015 Urine Protein Trace Urine Ketones Negative Urine Blood Large H Urine Nitrite Negative Urine Bilirubin Negative Urine Urobilinogen 0.2 Ur Leukocyte Esterase Negative Urine RBC >50 H Urine WBC Negative Ur Epithelial Cells Negative Urine Crystals Negative Urine Bacteria Few Urine Casts Negative Urine Mucus Trace Urine Other Negative Ur Culture Indicated? No Urine Glucose Negative Time Spent with Patient Time Spent with Patient: >50 minutes Time was spent: preparing to see the patient(eg.review tests), obtaining and/or reviewing separately otained hiistory, ordering medications,tests, procedures, referring, communicating with other health care center manager, indepentently interpreting results, counseling the patient and care coordination
[2024-03-31] MEDS: methylPREDNISolone SUCC 125 MG VIAL 80 MG IVP (18:18)
[2024-03-31] MEDS: dilTIAZem CD 120 MG CAPCR 240 MG PO (19:04)
[2024-03-31] MEDS: dilTIAZem 30 MG TAB 60 MG PO (19:04)
[2024-03-31] MEDS: Budesonide/Formoterol 80/4.5 6.9 GM 60 PUFF INH IH (20:35)
[2024-03-31] MEDS: Acetaminophen 325 MG TAB PO (21:32)
[2024-04-01] VITALS (10 sets, daily range): BP systolic 157–183; BP diastolic 85–98; PULSE 82–110; RESP 9–23; TEMP 36.2–36.5; O2SAT 89–93
[2024-04-01] MEDS: PIPERACILLIN/TAZO 4.5 GM in Normal Saline 100 ML IVPB ×3 (02:40→14:21)
[2024-04-01] MEDS: methylPREDNISolone SUCC 125 MG VIAL 80 MG IVP ×2 (02:40→10:24)
[2024-04-01] MEDS: Acetaminophen 325 MG TAB PO ×2 (05:06→10:25)
[2024-04-01] MEDS: Albuterol/Ipratropium 3 ML UPD VIAL UPD ×3 (05:26→17:44)
[2024-04-01] MEDS: Budesonide/Formoterol 80/4.5 6.9 GM 60 PUFF INH IH (07:52)
[2024-04-01] MEDS: Tiotropium Bromide-Respimat 10 PUFF INH 2 PUFF IH (07:52)
[2024-04-01] MEDS: Pantoprazole 40 MG VIAL IVP (07:58)
[2024-04-01] MEDS: Enoxaparin 40 MG/0.4 ML SYR SC (07:58)
[2024-04-01] MEDS: Potassium Chloride 20 MEQ TABCR PO (08:04)
[2024-04-01] MEDS: Amiodarone 200 MG TAB 100 MG PO (08:05)
[2024-04-01] MEDS: Omeprazole 20 MG CAPCR PO (08:05)
[2024-04-01] MEDS: dilTIAZem CD 120 MG CAPCR 240 MG PO ×2 (08:06→08:18)
[2024-04-01] MEDS: DOXYCYCLINE 100 MG in Normal Saline 100 ML IVPB (08:06)
[2024-04-01] MEDS: Insulin Aspart 300 UNITS/3 ML PEN SC ×3 (08:15→16:55)
[2024-04-01] MEDS: Normal Saline Flush 10 ML SYR IVP ×2 (08:17→10:23)
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
--- NOTE | 2024-04-01 11:22 | PDOC.CMPRO ---
Date of service: 04/01/24 Time of Service: 11:22 Care Management Progress Note Progress Note Text Progress Note Text: Dave was in bed, HOB elevated to 90degrees, when CM met with him earlier today. He looked a bit brighter and his speech was less garbled. When asked again about SNF, he very clearly stated, I want to go home. Per reports, he is near baseline. Palliative Care met with Dave today, and plans to meet with him in his home in 2 weeks. Dave reports that he has 2 steps to get in the back of his home. He feels confident that he will be able to climb the steps. He feels that he can go home in a private RCT ride. His [facility] CM was notified of the planned discharge for tomorrow. Discharge Potential Discharge Needs: PCP F/U Appt (pulmonology, palliative care) and Other Anticipated Barriers to Discharge: Medical Status Patient/Family Education Needs: Review discharge instructions, discuss Ask Me Three Transportation: RCT RCT Transportation: Wheel chair van Plan: Anticipate that Dave will be discharged to home with resumption of his C caregivers and HH RN. He will f/u with his PCP and Palliative Care, and continue per his plan of care. He will transport via private car RCT ride. CM will check in daily regarding Dave's goals and continue to follow. SDOH(Care Management) Screening Will the Patient Participate in the Screening?: Yes Do you worry about having a steady place to live?: no Problems where you live: no known problems In the past 12 months, have you had to go without electric, gas, oil or water in your home?: choose not to answer Have you or anyone in your house had to go without enough food to eat?: no Has lack of transportation kept you from medical appointments or from doing things needed for daily living?: yes Has anyone in your support network made you feel unsafe for any reason?: no Health Related Social Needs Health related social needs: transportation insecurity(Z59.82) Health related social needs details: pt has some concerns with housing but I am unable to understand his issues at this time. Anticipated HH Services Anticipated HH Services at Dis[facility] Resumption, PT and RN (resumption of RN and new PT).
--- NOTE | 2024-04-01 16:43 | PT.INTREAT ---
PT Notes Visit Reasons: Respiratory failure with hypoxia and hypercapnia, Inpatient Physical Therapy Treatment Note [facility] Date: 04-01-24 PRECAUTIONS: Continuous oxygen, trilogy BiPAP, IV right upper extremity SUBJECTIVE: Patient reports he wants to go home today OBJECTIVE: Patient lying in bed with head of bed elevated Hammonds catheter removed by nursing . patient with trilogy on and functioning with 6 L of oxygen? PAIN: Denied VITALS: ?Monitored via telemetry Therapeutic Activities ([id number][]): Direct one-on-one instruction in dynamic activities to improve functional performance. ? BED MOBILITY/TRANSFERS? Supine-sit: Independent? Sit-supine: Independent? Sit-stand: Independent? Stand-sit: Independent? Bed-Chair: Standby assist ? Chair-commode- bed : Standby assist Provided skilled cues and instruction on performance and technique throughout. Dynamic balance tasks in standing with 1 upper extremity support reaching bending within base of support for ADL management/hygiene requiring to sit rest to complete task with supervision due to PHAN/SOB ASSESSMENT: Patient demonstrates limitations in functional mobility related to impaired respiratory status/dyspnea on exertion requiring supplemental oxygen and intermittent use of trilogy BiPAP. Patient declined to participate in ambulation this afternoon PLAN: Patient would benefit from twice daily skilled PT for breath retraining pacing energy conservation techniques, balance, transfers, gait until appropriate for discharge TREATMENT CODE/TIME: 97827 [id number] DISCHARGE RECOMMENDATION: SNF for short-term rehabilitation prior to discharge to home
--- NOTE | 2024-04-01 16:44 | PGE_ITS ---
Date of Service Date of service: 04/01/24 Time of Service: 13:15 Assessment and Plan Assessment and plan (1) Palliative care encounter: Status: Acute Assessment and plan: Palliative care will to continue to follow outpatient closely, follow-up scheduled 2 weeks, already has 4-week visit scheduled (2) DNI (do not intubate): Status: Acute Assessment and plan: COLST form completed and in chart Dave has been consistently said he would not want to be intubated (3) Acute on chronic respiratory failure with hypoxia and hypercapnia: Status: Acute Assessment and plan: First exacerbation requiring hospitalization since August, he has had outpatient treatments for exacerbations Steroid taper continue He uses trilogy up to 60% or more throughout the day at home, continue to use during hospitalization, nasal cannula as tolerated It appears he has returned to his baseline, which is end-stage COPD (4) Edema of both lower extremities: Status: Acute Assessment and plan: At baseline (5) CHF (congestive heart failure): Status: Chronic Assessment and plan: Normal LV and RV function on echo from August 2023, baseline is Lasix as neede d Abdominal fluid at baseline IV Lasix 40 mg twice daily Qualifiers: Heart failure type: right-sided Heart failure chronicity: chronic Qualified Code(s): I50.812 - Chronic right heart failure (6) Dyspnea on effort: Status: Acute Assessment and plan: At baseline, dyspnea with minimal effort Previously trialed morphine with abdominal discomfort as an ADR Continue trilogy (7) Deficit in activities of daily living (ADL): Status: Acute Assessment and plan: Has significant assistance from home health, choices for care highest high, at baseline now Nursing daily visits (8) End stage COPD: Status: Chronic Assessment and plan: Hospice eligible, he is not ready today, he is aware, he states that several people of breath is up to him. He would love to live in a different place with more help around, however would not want to be in a senior care Preference for full code treatment, does not want to remain home if sick (9) Full code status: Status: Chronic Assessment and plan: Remains full code, would want transfer. Would not want intubation if heart were to stop recommend mask breathing This palliative provider would support DNR due to futility, related to his end- stage COPD and CHF and little to no likelihood of survival especially without intubation per his preferences, (10) Stress due to family tension: Status: Resolved Assessment and plan: He does not have a close relationship with any family members, including his roommate Lesly. She does not help him now, it does not appear that there are plans for her to help more in the future Community team follows him closely, CM with [facility] at this time with plans to discharge CM to [facility]. Previously trying to find [facility] or [facility], however due to his multiple chronic conditions with significant medical need it has been difficult to find the right fit at this time (11) Pneumonia: Assessment and plan: Continue Zosyn and doxycycline Qualifiers: Pneumonia type: due to unspecified organism Laterality: bilateral Lung location: unspecified part of lung Qualified Code(s): J18.9 - Pneumonia, unspecified organism (12) Paroxysmal atrial fibrillation: Status: Chronic Assessment and plan: Has remained sinus tachycardia, continue diltiazem and amiodarone Recommend discontinuing telemetry due to patient preference and baseline appearance Subjective Subjective Interval history since last seen: Dave remains hospitalized at [facility] to acute on chronic respiratory failure with suspected pneumonia and fluid volume overload He was seen by palliative care on 03/30, a COLST form was completed with DNI preferences Dave states that he did try home medications of azithromycin and prednisone prior to calling 911 for assistance with tachypnea and shortness of breath. Symptoms came on quickly Dave is ready to return home, he states he is at his baseline. He is eating and drinking appropriately, sleeping well, bowel patterns are normal. His Hammonds catheter was removed this afternoon, he has been making urine appropriately. His telemetry and IV tubes are annoying him, he would like them stopped if possible, he is happy to have his Hammonds out. He is aware that he has pneumonia and is receiving antibiotics for this, he knows that he had fluid buildup in his body and the IV diuresis helped him remove this fluid. He is comfortable with the care he has received, but would like to get out as soon as possible. He does not feel like Lesly needs to be notified, he is aware she has been included in case earlier He remains consistent with that he is not ready for hospice, he would like a different place to live, he is aware that his team is trying to work on this. His repeat chest x-ray did not show improvement. CM met with Dave and his bilingual patient support caseworker Elvie, he was adamant that he does not want to go to a senior care and would want to return home. Exam Narrative Exam Narrative: General: Lying in hospital bed, with head elevated. Using BiPAP, able to disconnect and reconnect several times throughout visit. No acute distress HEENT: Hearing grossly within normal limits, normocephalic atraumatic, edentulous Resp: Tachypneic, labored, especially with prolonged speech. Wet cough Psych: Perseverating, tangential, of note this is his baseline. Cooperative Objective Last Vital Signs Temp 97.5 F L 04/01/24 14:58 Pulse 82 04/01/24 14:58 Resp 20 04/01/24 14:58 BP 183/85 H 04/01/24 14:58 Pulse Ox 90 L 04/01/24 14:58 Time Spent with Patient Time Spent with Patient: 25-34 minutes Time was spent: preparing to see the patient(eg.review tests), obtaining and/or reviewing separately otained hiistory, referring, communicating with other health critical care registered nurse, counseling the patient and care coordination
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
[2024-04-01] MEDS: predniSONE 20 MG TAB 40 MG PO (16:55)
--- NOTE | 2024-04-01 18:24 | CMDISCH_ITS ---
Date of service: 04/01/24 Time of Service: 18:24 LACE Index Scoring Tool Questions: Length of Stay (in days): 4 - 6 Was the patient admitted via the E.D.?: Yes Comorbidities: Previous M.I., Cerebrovascular Disease (Hx CVA and TIA, brain aneurysm), Chronic Pulmonary Disease and Any Tumor E.D. Visits: 1 Answers: Total Score: 13 Risk of Readmission: High Risk Care Management Discharge Plan Reason for Hospitalization: respiratory failure Discharge Plan: Dave is discharged home with resumption of HH RN nursing and his [facility] caregivers. He will continue on his Trilogy and home O2. He will f/u with his PCP and continue per the prescribed plan of care. Palliative will visit in 2 weeks. He will transport via [facility] private vehicle, per his request. Patient/Family Education Needs: Review of discharge instructions, activity, limitations, follow up plan and discuss ask me 3. Services Needed at Discharge: Home Health Care Services (resumption of HH RN and his [facility] caregivers) SDOH Health Related Social Needs: Health related social needs transpo insecurity Health related social needs details pt has some concer ns with housing but I am unable to understand his issues at this time. Health related social needs: transportation insecurity(Z59.82) Health related social needs details: pt has some concerns with housing but I am unable to understand his issues at this time.
[2024-04-01] MEDS: Doxycycline Hyclate 100 MG CAP (18:47)
[2024-04-01] MEDS: Amoxicillin 875/Clav. 125 TAB (18:47)
== END 2024-04-01 19:13 | disposition home health service (06) | DRG 193 ==
LOC: ER 03-29 01:17 → ICU 03-29 04:12 → MS 03-31 04:56
PROVIDERS: Family Medicine; Admitting Provider Family Medicine; Emergency Provider Emergency Medicine; PCP Student in an Organized Health Care Education/Training Program; Visit Provider Family Medicine
DX: J18.9 Pneumonia, unspecified organism (principal); J96.21 Acute and chronic respiratory failure with hypoxia; J96.22 Acute and chronic respiratory failure with hypercapnia; J44.0 Chronic obstructive pulmonary disease with (acute) lower respiratory infection; J44.1 Chronic obstructive pulmonary disease with (acute) exacerbation; E46 Unspecified protein-calorie malnutrition; C79.51 Secondary malignant neoplasm of bone; C34.11 Malignant neoplasm of upper lobe, right bronchus or lung; I50.812 Chronic right heart failure; I48.0 Paroxysmal atrial fibrillation; E78.2 Mixed hyperlipidemia; I27.20 Pulmonary hypertension, unspecified; Z99.81 Dependence on supplemental oxygen; Z63.8 Other specified problems related to primary support group; I11.0 Hypertensive heart disease with heart failure; Z79.899 Other long term (current) drug therapy; Z87.891 Personal history of nicotine dependence; D50.9 Iron deficiency anemia, unspecified; R73.03 Prediabetes; E55.9 Vitamin D deficiency, unspecified; G31.84 Mild cognitive impairment of uncertain or unknown etiology; K21.9 Gastro-esophageal reflux disease without esophagitis; F98.8 Other specified behavioral and emotional disorders with onset usually occurring in childhood and adolescence; E78.5 Hyperlipidemia, unspecified; Z86.73 Personal history of transient ischemic attack (TIA), and cerebral infarction without residual deficits; I25.2 Old myocardial infarction
CPT/HCPCS: 00123; 36415; 36416; 80048; 80053; 80307; 82805; 82962; 85027; 87040; 87637; 93005; 94640; 96365; 96367; 96372; 96375; 96376; 97163; 97530; 99291; J1650; 71045; 81003; 81015; 82140; 83735; 83880; 84443; 84484; 85025; 85610; 85730; 93010; 94660; 94667; 94668; 94760; 99223; 99233; 99239; J0456; J0696; J1815; J1940; J2470; J2543; J2919; J3470; J3475; J7512; J7613; J7620

== ENCOUNTER 2024-04-02 15:28 | Inpatient (IN) | payer MEDICARE, MEDICAID, SELFPAY ==
[2024-04-02] VITALS (33 sets, daily range): BP systolic 130–183; BP diastolic 69–118; PULSE 76–132; RESP 2–31; TEMP 36.2–37; O2SAT 85–92
--- NOTE | 2024-04-02 15:15 | DI.RAD_ITS ---
Exam(s) XR PORTABLE CHEST AP EXAM: XR PORTABLE CHEST AP CLINICAL HISTORY: SOB. TECHNIQUE: 2D digital imaging was performed. COMPARISON: CR,XR XR PORTABLE CHEST AP from 03/28/2024 CR XR PORTABLE CHEST AP from 03/31/2024 FINDINGS: Single AP portable view. Heart size is unchanged. The mediastinum is not widened. There is still some infiltrate in left lower lobe retrocardiac region. Also in the right lung base. No obvious pleural effusions. No pneumothorax. No fractures evident. IMPRESSION: Persistent increased markings both lower lobes. Otherwise unchanged from 03/31/2024 DATA REPOSITORY: RADIATION DOSE DELIVERED:
--- NOTE | 2024-04-02 15:30 | RT.EKG_ITS ---
APPROVED REPORT Exam: Resting ECG Reason for Exam: SOB Patient Location: E HR:115 bpm ECG Measurements Heart Rate 115 AXIS LA 124 P 123 QRSd 86 QRS 81 QT 307 T -69 QTc 416 Conclusion Sinus tachycardia 115 PAC no stemi
[2024-04-02] MEDS: Albuterol/Ipratropium 3 ML UPD VIAL (15:35)
[2024-04-02] MEDS: methylPREDNISolone SUCC 125 MG VIAL IVP (16:19)
[2024-04-02] MEDS: Furosemide 100 MG/10 ML VIAL 80 MG IVP (16:19)
[2024-04-02] MEDS: Normal Saline Flush 10 ML SYR IVP ×2 (16:20→20:32)
[2024-04-02 16:23] LABS: HCT 49.2 % (40.0-50.0); MCH 27.8 pg (27.0-33.0); MCHC 28.5 % (32.0-36.0); MCV 98 fL (80-95); Platelet Count 273 10^3/uL (130-400); RBC 5.03 10^6/uL (4.36-5.78); RDW 13.6 % (11.8-14.1); RDW-SD 49.6 fL; WBC 16.21 10^3/uL (4.4-10.8)
[2024-04-02 16:31] LABS: HCO3 (Venous) 59 mmol/L (23-28); TCO2 (Venous) > 50 mmol/L (24-29); pH (Venous) 7.38 (7.31-7.41); pO2 (Venous) 43 mmHg
[2024-04-02 16:32] LABS: BE (Venous) > 30 mmol/L (-2-3); O2 Sat (Venous) 72 %
[2024-04-02 16:33] LABS: pCO2 (Venous) 101 mmHg (41-51)
[2024-04-02 16:44] LABS: INR 1.1 (0.9-1.1); PTT Activated 23.4 sec (23.6-32.8); Prothrombin Time 10.7 sec (9.1-11.1)
[2024-04-02 16:47] LABS: ALT 105 U/L (16-63); AST 33 U/L (15-37); Absolute Lymphocyte Count 1.46 10^3/uL (1.2-3.4); Absolute Monocyte Count 1.62 10^3/uL (0.1-0.8); Absolute Neutrophil Count 12.48 10^3/uL (1.2-6.7); Albumin 3.3 g/dL (3.4-5.0); Alkaline Phosphatase 111 U/L (46-116); Atypical Lymphocytes % 1 %; BUN 35 mg/dL (7-18); Bands % 1 %; Bilirubin, Total 0.35 mg/dL (0.2-1.0); Calcium 9.3 mg/dL (8.5-10.1); Chloride 95 mmol/L (98-107); Estimated GFR 81.98 (mL/min/1.73m2); Glucose 139 mg/dL (74-106); Magnesium 2.2 mg/dL (1.8-2.4); NT-proBNP 1193 pg/mL (<300); Potassium 3.5 mmol/L (3.5-5.1); Sodium 145 mmol/L (136-145); Total Protein 7.1 g/dL (6.4-8.2); Troponin I 50 ng/L (<or=76)
[2024-04-02 16:48] LABS: COVID-19 PCR Negative (Negative); Influenza A PCR Negative (Negative); Influenza B PCR Negative (Negative); RSV PCR Negative (Negative)
[2024-04-02 16:48] LABS: Metamyelocytes % 1; Myelocytes % 3
[2024-04-02 16:49] LABS: Diff Comment Manual Differential; Hypochromasia 1+
[2024-04-02 16:50] LABS: Source Nasopharynx
[2024-04-02 16:51] LABS: Anion Gap 4.99999 mmol/L (3-11); CO2 > 45.0 mmol/L (21.0-32.0)
[2024-04-02 17:41] LABS: Troponin I 48 ng/L (<or=76)
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
[2024-04-02 18:26] LABS: HCO3 (Venous) 56 mmol/L (23-28); O2 Sat (Venous) 72 %; TCO2 (Venous) 50 mmol/L (24-29); pH (Venous) 7.43 (7.31-7.41); pO2 (Venous) 38 mmHg
[2024-04-02 18:30] LABS: pCO2 (Venous) 85 mmHg (41-51)
[2024-04-02 18:32] LABS: BE (Venous) 32 mmol/L (-2-3)
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
[2024-04-02 18:49] LABS: Troponin I 45 ng/L (<or=76)
[2024-04-02] MEDS: Levalbuterol 1.25 MG/3 ML UPD VIAL UPD ×2 (20:07→23:03)
[2024-04-02] MEDS: Pantoprazole 40 MG VIAL IVP (20:31)
[2024-04-02] MEDS: PIPERACILLIN/TAZO 3.375 GM in Normal Saline 50 ML IVPB (20:32)
[2024-04-02] MEDS: Enoxaparin 40 MG/0.4 ML SYR SC (20:33)
[2024-04-02] MEDS: guaiFENesin 600 MG TABCR PO (20:33)
[2024-04-02] MEDS: dilTIAZem CD 120 MG CAPCR 240 MG PO (21:33)
[2024-04-02] MEDS: DOXYCYCLINE 100 MG in Normal Saline 100 ML IVPB (21:57)
[2024-04-02 22:44] LABS: pH (Venous) 7.48 (7.31-7.41); pO2 (Venous) 147 mmHg
[2024-04-02 22:45] LABS: BE (Venous) > 30 mmol/L (-2-3); HCO3 (Venous) 59 mmol/L (23-28); O2 Sat (Venous) 99 %; TCO2 (Venous) > 50 mmol/L (24-29)
[2024-04-02 22:47] LABS: pCO2 (Venous) 79 mmHg (41-51)
[2024-04-02] MEDS: methylPREDNISolone SUCC 125 MG VIAL 80 MG IVP (23:26)
[2024-04-02] MEDS: Clotrimazole 1% 15 GM TUBE TP (23:28)
[2024-04-03] VITALS (48 sets, daily range): BP systolic 122–164; BP diastolic 69–91; PULSE 84–119; RESP 2–38; TEMP 34–37; O2SAT 84–97
[2024-04-03] MEDS: PIPERACILLIN/TAZO 3.375 GM in Normal Saline 50 ML IVPB ×2 (02:19→08:47)
[2024-04-03] MEDS: Levalbuterol 1.25 MG/3 ML UPD VIAL UPD ×6 (03:05→22:35)
[2024-04-03] MEDS: Normal Saline Flush 10 ML SYR IVP ×3 (06:26→22:13)
[2024-04-03] MEDS: methylPREDNISolone SUCC 125 MG VIAL 80 MG IVP ×3 (06:28→23:31)
[2024-04-03 06:38] LABS: Abs Immature Grans 0.91 10^3/uL (0.0-0.06); HCT 47.4 % (40.0-50.0); HGB 13.8 g/dL (13.5-17.5); MCH 27.9 pg (27.0-33.0); MCHC 29.1 % (32.0-36.0); MCV 96 fL (80-95); MPV 9.5 fL (8.0-11.0); Platelet Count 241 10^3/uL (130-400); RBC 4.95 10^6/uL (4.36-5.78); RDW 13.9 % (11.8-14.1); WBC 11.57 10^3/uL (4.4-10.8)
[2024-04-03 06:40] LABS: pH (Venous) 7.44 (7.31-7.41)
[2024-04-03 06:41] LABS: BE (Venous) > 30 mmol/L (-2-3); HCO3 (Venous) 55 mmol/L (23-28); O2 Sat (Venous) 92 %; TCO2 (Venous) > 50 mmol/L (24-29); pO2 (Venous) 65 mmHg
[2024-04-03 06:44] LABS: pCO2 (Venous) 79 mmHg (41-51)
[2024-04-03 06:49] LABS: BUN 36 mg/dL (7-18); Chloride 94 mmol/L (98-107); Estimated GFR 81.98 (mL/min/1.73m2); Glucose 208 mg/dL (74-106); Potassium 3.3 mmol/L (3.5-5.1); Sodium 141 mmol/L (136-145)
[2024-04-03 06:53] LABS: Anion Gap 1.99999 mmol/L (3-11)
[2024-04-03 06:55] LABS: CO2 > 45.0 mmol/L (21.0-32.0)
[2024-04-03 07:12] LABS: Absolute Lymphocyte Count 1.16 10^3/uL (1.2-3.4); Absolute Monocyte Count 0.58 10^3/uL (0.1-0.8); Absolute Neutrophil Count 9.49 10^3/uL (1.2-6.7); Diff Comment Manual Differential; Metamyelocytes % 1; Myelocytes % 2; RBC Morphology Normal
[2024-04-03] MEDS: Tiotropium Bromide-Respimat 10 PUFF INH 2 PUFF IH (08:25)
[2024-04-03] MEDS: Budesonide/Formoterol 80/4.5 6.9 GM 60 PUFF INH IH ×2 (08:25→19:42)
[2024-04-03] MEDS: Roflumilast 500 MCG TAB PO (08:45)
[2024-04-03] MEDS: guaiFENesin 600 MG TABCR PO ×2 (08:46→22:14)
[2024-04-03] MEDS: dilTIAZem CD 120 MG CAPCR 240 MG PO ×2 (08:46→22:13)
[2024-04-03] MEDS: Potassium Chloride 20 MEQ TABCR PO (08:46)
[2024-04-03] MEDS: Amiodarone 200 MG TAB 100 MG PO (08:46)
[2024-04-03] MEDS: Aspirin E.C. 81 MG TABEC PO (08:46)
[2024-04-03] MEDS: DOXYCYCLINE 100 MG in Normal Saline 100 ML IVPB ×2 (08:47→22:14)
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
[2024-04-03] MEDS: Clotrimazole 1% 15 GM TUBE TP ×2 (10:10→22:15)
--- NOTE | 2024-04-03 10:34 | W.PM.PROGNOT ---
Date of Service Date of service: 04/03/24 Time of Service: 10:34 Assessment and Plan Assessment and plan (1) Acute on chronic respiratory failure with hypoxia and hypercapnia: Status: Resolved Assessment and plan: He was more hypercarbic on admission, CO2 down from 101 to 79 after BiPAP overnight, which is about as good as he has been in the past year. Continue to monitor in the to ICU with BiPAP for now (2) COPD exacerbation: Status: Resolved Assessment and plan: Back on IV steroids. Plan transition to po tomorrow morning if he continues to look stable No new pneumonia, but because he was improving on pip/tazo and doxy, and due to h/o pseudomonas, resumed both antibiotics. Continue home inhalers. Respiratory support as above. (3) Heart failure with preserved ejection fraction: Status: Acute Assessment and plan: BNaP up but he does not appear to be fluid overloaded after 80mg furosemide in ED. Will continue 40mg po daily for now. (4) End stage COPD: Status: Chronic Assessment and plan: see above. He isn't far from his baseline but has very severe disease. Just saw palliative, reconsulted though with weekend they won't be availabe. He isn't ready for [facility]/hospice, but is asking for supportive care invironment. (5) Paroxysmal atrial fibrillation: Status: Chronic Assessment and plan: Not anticoagulated per patient preference. He is on amiodarone and diltizem, continue. (6) DVT prophylaxis: Status: Acute Assessment and plan: LMWH (7) Hypokalemia: Status: Resolved Assessment and plan: with furosemide. Supplement and follow Subjective Subjective Patient reports: no new complaints and voiding w/o difficulty; denies diarrhea, nausea, vomiting or fever Interval history since last seen: He feels better than yesterday. He would like to eat. Feels okay. He still wants treatment but he thinks he needs to have somebody to help take care of him. He knows people at [facility]. He doesn't want the [place]. Exam Narrative Exam Narrative: General: Patient sitting up on BiPAP, conversant though difficult to understand, oriented x 4. Changed to HFNC and easier to speak. short sentences with moderate dyspnea with speech. Lungs: Improved but still dimished jaxon breath sounds, some increased expiratory phase, no wheeze. Heart: Tachycardic rate with regular rhythm. No appreciable murmur or gallop. Distant heart sounds obscured by lung findings. Abdomen: Soft and nontender to palpation Extremities: Without clubbing, cyanosis or pitting edema. Good cap refill. Objective Last Vital Signs Temp 37.0 C 04/03/24 08:00 Pulse 93 H 04/03/24 08:01 Resp 19 04/03/24 09:00 BP 164/89 H 04/03/24 08:01 Pulse Ox 96 04/03/24 09:00 Laboratory Results - last 24 hr 04/02/24 04/02/24 04/02/24 16:00 16:12 17:17 WBC 16.21 H RBC 5.03 Hgb 14.0 Hct 49.2 MCV 98 H MCH 27.8 MCHC 28.5 L RDW 13.6 Plt Count 273 MPV 9.0 Immature Gran % See Differential Neutrophils % 76.0 Band Neutrophils % 1 Lymphocytes % 8.0 Atypical Lymphs % 1 Monocytes % 10.0 Eosinophils % 0.0 Basophils % 0.0 Metamyelocytes % 1 Myelocytes % 3 Nucleated RBC % 0.0 Absolute Neutrophils 12.48 H Absolute Lymphocytes 1.46 Absolute Monocytes 1.62 H Absolute Eosinophils 0.00 Absolute Basophils 0.00 RBC Morphology See Below Hypochromasia 1+ PT 10.7 INR 1.1 APTT 23.4 L VBG pH 7.38 VBG pCO2 101 H* VBG pO2 43 VBG HCO3 59 H VBG Total CO2 > 50 H VBG O2 Saturation 72 VBG Base Excess > 30 H Sodium 145 Potassium 3.5 Chloride 95 L Carbon Dioxide > 45.0 H Anion Gap 4.69656 BUN 35 H Creatinine 1.0 Est GFR (CKD-EPI 2020) 81.98 Glucose 139 H Calcium 9.3 Magnesium 2.2 Total Bilirubin 0.35 AST 33 ALT 105 H Alkaline Phosphatase 111 Troponin I 50 48 NT-Pro-B Natriuret Pep 1193 H Total Protein 7.1 Albumin 3.3 L COVID-19 Source Nasopharynx SARS-CoV-2 (PCR) Negative Influenza Type A (PCR) Negative Influenza Type B (PCR) Negative RSV (PCR) Negative 04/02/24 04/02/24 04/03/24 18:21 22:25 06:20 WBC 11.57 H RBC 4.95 Hgb 13.8 Hct 47.4 MCV 96 H MCH 27.9 MCHC 29.1 L RDW 13.9 Plt Count 241 MPV 9.5 Immature Gran % See Differential Neutrophils % 82.0 Band Neutrophils % Lymphocytes % 10.0 Atypical Lymphs % Monocytes % 5.0 Eosinophils % 0.0 Basophils % 0.0 Metamyelocytes % 1 Myelocytes % 2 Nucleated RBC % 3.0 H Absolute Neutrophils 9.49 H Absolute Lymphocytes 1.16 L Absolute Monocytes 0.58 Absolute Eosinophils 0.00 Absolute Basophils 0.00 RBC Morphology Normal Hypochromasia PT INR APTT VBG pH 7.43 H 7.48 H Cancelled VBG pCO2 85 H* 79 H* VBG pO2 38 147 VBG HCO3 56 H 59 H VBG Total CO2 50 H > 50 H VBG O2 Saturation 72 99 VBG Base Excess 32 H > 30 H Sodium Potassium Chloride Carbon Dioxide Anion Gap BUN Creatinine Est GFR (CKD-EPI 2020) Glucose Calcium Magnesium Total Bilirubin AST ALT Alkaline Phosphatase Troponin I 45 NT-Pro-B Natriuret Pep Total Protein Albumin COVID-19 Source SARS-CoV-2 (PCR) Influenza Type A (PCR) Influenza Type B (PCR) RSV (PCR) 04/03/24 04/03/24 04/03/24 06:20 06:20 06:20 WBC RBC Hgb Hct MCV MCH MCHC RDW Plt Count MPV Immature Gran % Neutrophils % Band Neutrophils % Lymphocytes % Atypical Lymphs % Monocytes % Eosinophils % Basophils % Metamyelocytes % Myelocytes % Nucleated RBC % Absolute Neutrophils Absolute Lymphocytes Absolute Monocytes Absolute Eosinophils Absolute Basophils RBC Morphology Hypochromasia PT INR APTT VBG pH 7.44 H VBG pCO2 Cancelled 79 H* VBG pO2 Cancelled 65 VBG HCO3 Cancelled VBG Total CO2 VBG O2 Saturation VBG Base Excess Sodium Potassium Chloride Carbon Dioxide Anion Gap BUN Creatinine Est GFR (CKD-EPI 2020) Glucose Calcium Magnesium Total Bilirubin AST ALT Alkaline Phosphatase Troponin I NT-Pro-B Natriuret Pep Total Protein Albumin COVID-19 Source SARS-CoV-2 (PCR) Influenza Type A (PCR) Influenza Type B (PCR) RSV (PCR) 04/03/24 04/03/24 04/03/24 06:20 06:20 06:20 WBC RBC Hgb Hct MCV MCH MCHC RDW Plt Count MPV Immature Gran % Neutrophils % Band Neutrophils % Lymphocytes % Atypical Lymphs % Monocytes % Eosinophils % Basophils % Metamyelocytes % Myelocytes % Nucleated RBC % Absolute Neutrophils Absolute Lymphocytes Absolute Monocytes Absolute Eosinophils Absolute Basophils RBC Morphology Hypochromasia PT INR APTT VBG pH VBG pCO2 VBG pO2 VBG HCO3 55 H VBG Total CO2 Cancelled > 50 H VBG O2 Saturation Cancelled 92 VBG Base Excess Cancelled Sodium Potassium Chloride Carbon Dioxide Anion Gap BUN Creatinine Est GFR (CKD-EPI 2020) Glucose Calcium Magnesium Total Bilirubin AST ALT Alkaline Phosphatase Troponin I NT-Pro-B Natriuret Pep Total Protein Albumin COVID-19 Source SARS-CoV-2 (PCR) Influenza Type A (PCR) Influenza Type B (PCR) RSV (PCR) 04/03/24 06:20 WBC RBC Hgb Hct MCV MCH MCHC RDW Plt Count MPV Immature Gran % Neutrophils % Band Neutrophils % Lymphocytes % Atypical Lymphs % Monocytes % Eosinophils % Basophils % Metamyelocytes % Myelocytes % Nucleated RBC % Absolute Neutrophils Absolute Lymphocytes Absolute Monocytes Absolute Eosinophils Absolute Basophils RBC Morphology Hypochromasia PT INR APTT VBG pH VBG pCO2 VBG pO2 VBG HCO3 VBG Total CO2 VBG O2 Saturation VBG Base Excess > 30 H Sodium 141 Potassium 3.3 L Chloride 94 L Carbon Dioxide > 45.0 H Anion Gap 1.25415 L BUN 36 H Creatinine 1.0 Est GFR (CKD-EPI 2020) 81.98 Glucose 208 H Calcium 9.0 Magnesium Total Bilirubin AST ALT Alkaline Phosphatase Troponin I NT-Pro-B Natriuret Pep Total Protein Albumin COVID-19 Source SARS-CoV-2 (PCR) Influenza Type A (PCR) Influenza Type B (PCR) RSV (PCR) Time Spent with Patient Time Spent with Patient: >50 minutes Time was spent: preparing to see the patient(eg.review tests), obtaining and/or reviewing separately otained hiistory, ordering medications,tests, procedures, referring, communicating with other health out of school hours care worker, indepentently interpreting results, counseling the patient and care coordination
--- NOTE | 2024-04-03 11:36 | PHA.REVIEW2 ---
Pharmacy Admission Review Admission Clinical Review Admission Pharmacy Review: DVT prophylaxis (Acute) Heart failure with preserved ejection fraction (Acute) albuterol Adverse Reaction (Intermediate, Verified 04/02/24 16:27) SVT/rapid heart rate atorvastatin Adverse Reaction (Verified 04/02/24 16:27) Other (See Comment) citalopram (From Celexa) Adverse Reaction (Verified 04/02/24 16:27) worsening anxiety/depression terazosin Adverse Reaction (Verified 04/02/24 16:27) Dizziness/Lightheade lobster Allergy (Uncoded 04/02/24 16:27) Dizziness/Lightheade Resuscitation Status DNI Height 5 ft 9 in Weight 93 kg Pharmacy Admission Review Renal Dosing Renal Dosing: BUN 36 mg/dL (7-18) H 04/03/24 06:20 Creatinine 1.0 mg/dL (0.70-1.30) 04/03/24 06:20 Medications needing adjustments: Reviewed (CrCl 79.6 mL/min, BUN increased from 35) List of meds needing interventions: Current medications are okay Anticoagulation Anticoagulation: Hgb 13.8 g/dL (13.5-17.5) 04/03/24 06:20 Hct 47.4 % (40.0-50.0) 04/03/24 06:20 Plt Count 241 10^3/uL (130-400) 04/03/24 06:20 INR 1.1 (0.9-1.1) 04/02/24 16:12 Creatinine 1.0 mg/dL (0.70-1.30) 04/03/24 06:20 DVT Prophylaxis: Reviewed Medications: Enoxaparin (40mg daily) Relevant Labs Relevant Labs: Sodium 141 mmol/L (136-145) 04/03/24 06:20 Potassium 3.3 mmol/L (3.5-5.1) L 04/03/24 06:20 Chloride 94 mmol/L (98-107) L 04/03/24 06:20 Magnesium 2.2 mg/dL (1.8-2.4) 04/02/24 16:12 Electrolytes, C-Reactive P, ESR: Reviewed (K 3.3 - has order for 20 mEq PO daily, glucose 208 at 0620) Cardiac Review Cardiac Review: Troponin I 45 ng/L (<or=76) 04/02/24 18:21 NT-Pro-B Natriuret Pep 1193 pg/mL (<300) H 04/02/24 16:12 Blood Pressure : Heart Rate 164/89 : 93 0801 Blood Pressure : Heart Rate 161/91 : 92 0601 Blood Pressure : Heart Rate 151/73 : 93 0402 Blood Pressure : Heart Rate 155/89 : 97 0201 Blood Pressure : Heart Rate 142/88 : 99 0102 BP, HR, EF%: Reviewed List meds needing interventions: Has order for amiodarone 100mg daily and diltiazem CD 240mg BID QTc Review QTc: Reviewed (416 from 04/02/24) IV to PO Switch IV Medications: Reviewed (doxycycline, methylprednisolone, pantoprazole and Zosyn) Home Meds Home Med List reviewed: Reviewed Relevent Home Meds Not ordered & why?: albuterol (PRN), vitamin C, furosemide (IVP order was discontinued), omeprazole (has order for pantoprazole) and prednisone (taper) Current Meds Current Medication Order Review: Intervened Comments: Added IV admission order set Patient was just discharged a few days ago and had also been on antibiotics during that admission. Patient had been on Zosyn 4.5g, but for this current admission order was put in as 3.375g. Reached out to provider to verify and provider changed dose to 4.5g. Pharmacy Antibiotic Review Relevant Labs: WBC 11.57 10^3/uL (4.4-10.8) H 04/03/24 06:20 Temperature 37.0 C Temperature 36.6 C Temperature 36.6 C Pharmacy Antibiotic Activity: Abx regimen adjustment (see Current Meds above) Comments: Patient is on doxycycline and Zosyn, day 1 for this admission. Patient in total (including previous admission with discharge of 04/01) is 8 doses of doxycycline and 9 doses of Zosyn. Patient is afebrile, WBC decreased from 16.21 and currently no cultures pending.
[2024-04-03] MEDS: Furosemide 40 MG/4 ML VIAL IVP (11:57)
[2024-04-03 16:36] LABS: HCO3 (Venous) 55 mmol/L (23-28); O2 Sat (Venous) 91 %; TCO2 (Venous) 48 mmol/L (24-29); pH (Venous) 7.51 (7.31-7.41); pO2 (Venous) 56 mmHg
[2024-04-03 16:38] LABS: BE (Venous) 32 mmol/L (-2-3)
[2024-04-03 16:39] LABS: pCO2 (Venous) 69 mmHg (41-51)
[2024-04-03] MEDS: Enoxaparin 40 MG/0.4 ML SYR SC (22:13)
[2024-04-03] MEDS: Pantoprazole 40 MG VIAL IVP (22:13)
[2024-04-03] MEDS: PIPERACILLIN/TAZO 4.5 GM in Normal Saline 100 ML IVPB (23:34)
[2024-04-04] VITALS (44 sets, daily range): BP systolic 130–164; BP diastolic 75–100; PULSE 78–111; RESP 2–31; TEMP 34–37; O2SAT 87–97
[2024-04-04] MEDS: Levalbuterol 1.25 MG/3 ML UPD VIAL UPD ×6 (03:01→22:45)
[2024-04-04] MEDS: methylPREDNISolone SUCC 125 MG VIAL 80 MG IVP (06:03)
[2024-04-04] MEDS: PIPERACILLIN/TAZO 4.5 GM in Normal Saline 100 ML IVPB ×4 (06:04→23:15)
[2024-04-04 07:27] LABS: Anion Gap 2.6 mmol/L (3-11); BUN 33 mg/dL (7-18); CO2 44.4 mmol/L (21.0-32.0); Calcium 9.2 mg/dL (8.5-10.1); Chloride 92 mmol/L (98-107); Estimated GFR 81.98 (mL/min/1.73m2); Glucose 196 mg/dL (74-106); Magnesium 1.9 mg/dL (1.8-2.4); Potassium 3.5 mmol/L (3.5-5.1); Sodium 139 mmol/L (136-145)
[2024-04-04] MEDS: Budesonide/Formoterol 80/4.5 6.9 GM 60 PUFF INH IH ×2 (07:50→19:53)
[2024-04-04] MEDS: Tiotropium Bromide-Respimat 10 PUFF INH 2 PUFF IH (07:50)
[2024-04-04] MEDS: guaiFENesin 600 MG TABCR PO ×2 (08:02→21:02)
[2024-04-04] MEDS: Roflumilast 500 MCG TAB PO (08:02)
[2024-04-04] MEDS: Aspirin E.C. 81 MG TABEC PO (08:02)
[2024-04-04] MEDS: dilTIAZem CD 120 MG CAPCR 240 MG PO ×2 (08:03→21:03)
[2024-04-04] MEDS: Potassium Chloride 20 MEQ TABCR PO (08:03)
[2024-04-04] MEDS: Amiodarone 200 MG TAB 100 MG PO (08:03)
[2024-04-04] MEDS: predniSONE 20 MG TAB 40 MG PO (08:04)
[2024-04-04] MEDS: Furosemide 40 MG TAB PO (08:04)
[2024-04-04] MEDS: Normal Saline Flush 10 ML SYR IVP ×2 (08:35→21:07)
[2024-04-04] MEDS: Clotrimazole 1% 15 GM TUBE TP ×2 (08:35→21:05)
[2024-04-04] MEDS: DOXYCYCLINE 100 MG in Normal Saline 100 ML IVPB ×2 (10:07→21:25)
--- NOTE | 2024-04-04 12:24 | PGE_ITS ---
Date of Service Date of service: 04/04/24 Time of Service: 12:24 Assessment and Plan Assessment and plan (1) Acute on chronic respiratory failure with hypoxia and hypercapnia: Status: Resolved Assessment and plan: He was more hypercarbic on admission, CO2 down from 101 to 79 after BiPAP overnight, acutally improved to 69 on HFNC, which is better than he has been in the past year. Continue HFNC during day, BiPAP prn and at night. (2) COPD exacerbation: Status: Resolved Assessment and plan: Transitioned today to po steroids. No new pneumonia, but because he was improving on pip/tazo and doxy, and due to h/o pseudomonas, resumed both antibiotics. Consider stopping after a week total therapy 04/05 Continue home inhalers. Respiratory support as above. (3) Heart failure with preserved ejection fraction: Status: Acute Assessment and plan: BNaP up but he did not appear to be fluid overloaded on admission after 80mg furosemide in ED. Given 40mg IV 04/03, will incraese daily oral dose to 80mg po for now. (4) End stage COPD: Status: Chronic Assessment and plan: see above. He isn't far from his baseline but has very severe disease. Just saw palliative, reconsulted though with weekend they won't be availabe until Thursday 04/05. He isn't ready for [employer]/hospice, but is asking for supportive care invironment. CM working on placement options (5) Paroxysmal atrial fibrillation: Status: Chronic Assessment and plan: Not anticoagulated per patient preference. Rate hard to control with respirotory disease and inhalers, in 90s at rest. He is on amiodarone and diltizem, continue. (6) DVT prophylaxis: Status: Acute Assessment and plan: LMWH (7) Hypokalemia: Status: Resolved Assessment and plan: with furosemide. Supplementing daily orally, follow Subjective Subjective Patient reports: tolerating a regular diet and voiding w/o difficulty; denies diarrhea, vomiting or fever Interval history since last seen: Events: Was on HFNC during day yesterday, follow up VBG looked good, but O2 sat does drop into 80s, even 70s with activity. He denies new complaints. Exam Narrative Exam Narrative: General: Patient sitting up on HFNC, conversant though difficult to understand, alert and oriented. short sentences with moderate dyspnea with speech. Lungs: Improved but still dimished jaxon breath sounds, some prolonged expiratory phase, no wheeze. Heart: Tachycardic rate with regular rhythm. No appreciable murmur or gallop. Abdomen: Soft and nontender to palpation Extremities: Without clubbing, cyanosis or pitting edema. Good cap refill. Objective Last Vital Signs Temp 36.7 C 04/04/24 06:01 Pulse 100 H 04/04/24 11:07 Resp 31 H 04/04/24 11:07 BP 156/91 H 04/04/24 09:11 Pulse Ox 93 04/04/24 11:07 Laboratory Results - last 24 hr 04/03/24 04/04/24 16:28 05:26 VBG pH 7.51 H VBG pCO2 69 H* VBG pO2 56 VBG HCO3 55 H VBG Total CO2 48 H VBG O2 Saturation 91 VBG Base Excess 32 H Sodium 139 Potassium 3.5 Chloride 92 L Carbon Dioxide 44.4 H Anion Gap 2.6 L BUN 33 H Creatinine 1.0 Est GFR (CKD-EPI 2020) 81.98 Glucose 196 H Calcium 9.2 Magnesium 1.9 Time Spent with Patient Time Spent with Patient: >50 minutes Time was spent: preparing to see the patient(eg.review tests), obtaining and/or reviewing separately otained hiistory, ordering medications,tests, procedures, referring, communicating with other health care management specialist, indepentently interpreting results, counseling the patient and care coordination
[2024-04-04] MEDS: Enoxaparin 40 MG/0.4 ML SYR SC (21:02)
[2024-04-04] MEDS: Pantoprazole 40 MG VIAL IVP (21:03)
[2024-04-05] VITALS (32 sets, daily range): BP systolic 113–162; BP diastolic 72–115; PULSE 80–102; RESP 2–28; TEMP 31–36.7; O2SAT 85–97
[2024-04-05] MEDS: Levalbuterol 1.25 MG/3 ML UPD VIAL UPD ×6 (03:00→23:44)
[2024-04-05] MEDS: PIPERACILLIN/TAZO 4.5 GM in Normal Saline 100 ML IVPB ×4 (06:00→23:40)
[2024-04-05 06:58] LABS: ALT 141 U/L (16-63); AST 26 U/L (15-37); Albumin 2.7 g/dL (3.4-5.0); Alkaline Phosphatase 86 U/L (46-116); Anion Gap 1.2 mmol/L (3-11); BUN 34 mg/dL (7-18); Bilirubin, Total 0.32 mg/dL (0.2-1.0); CO2 42.8 mmol/L (21.0-32.0); Calcium 8.7 mg/dL (8.5-10.1); Chloride 95 mmol/L (98-107); Estimated GFR 81.98 (mL/min/1.73m2); Glucose 170 mg/dL (74-106); Potassium 3.3 mmol/L (3.5-5.1); Sodium 139 mmol/L (136-145); Total Protein 5.8 g/dL (6.4-8.2)
[2024-04-05] MEDS: Budesonide/Formoterol 80/4.5 6.9 GM 60 PUFF INH IH ×2 (07:56→20:31)
[2024-04-05] MEDS: Tiotropium Bromide-Respimat 10 PUFF INH 2 PUFF IH (07:57)
[2024-04-05] MEDS: Amiodarone 200 MG TAB 100 MG PO (09:18)
[2024-04-05] MEDS: Aspirin E.C. 81 MG TABEC PO (09:19)
[2024-04-05] MEDS: dilTIAZem CD 120 MG CAPCR 240 MG PO ×2 (09:19→20:55)
[2024-04-05] MEDS: DOXYCYCLINE 100 MG in Normal Saline 100 ML IVPB ×2 (09:20→20:56)
[2024-04-05] MEDS: Furosemide 40 MG TAB 80 MG PO (09:21)
[2024-04-05] MEDS: guaiFENesin 600 MG TABCR PO ×2 (09:22→20:55)
[2024-04-05] MEDS: Normal Saline Flush 10 ML SYR IVP ×3 (09:23→21:11)
[2024-04-05] MEDS: Potassium Chloride 20 MEQ TABCR PO ×2 (09:23→20:55)
[2024-04-05] MEDS: Roflumilast 500 MCG TAB PO (09:24)
[2024-04-05] MEDS: predniSONE 20 MG TAB 40 MG PO (09:24)
[2024-04-05] MEDS: Clotrimazole 1% 15 GM TUBE TP ×2 (09:42→21:09)
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
[2024-04-05 11:50] LABS: HCT 47.2 % (40.0-50.0); HGB 13.9 g/dL (13.5-17.5); MCHC 29.4 % (32.0-36.0); MCV 95 fL (80-95); MPV 10.5 fL (8.0-11.0); Platelet Count 218 10^3/uL (130-400); RBC 4.97 10^6/uL (4.36-5.78); RDW 13.8 % (11.8-14.1); RDW-SD 48.1 fL; WBC 20.23 10^3/uL (4.4-10.8)
[2024-04-05 12:06] LABS: Absolute Lymphocyte Count 0.61 10^3/uL (1.2-3.4); Absolute Monocyte Count 1.21 10^3/uL (0.1-0.8); Bands % 2 %; Diff Comment Manual Differential; Metamyelocytes % 2; Myelocytes % 1; RBC Morphology Normal
[2024-04-05] MEDS: Pantoprazole 40 MG TABCR PO (12:17)
--- NOTE | 2024-04-05 12:36 | NUR.NOTE ---
Nursing Note: assessment reviewed by this nurse
--- NOTE | 2024-04-05 14:29 | W.PM.PROGNOT ---
Date of Service Date of service: 04/05/24 Time of Service: 14:29 Assessment and Plan Assessment and plan (1) Acute on chronic respiratory failure with hypoxia and hypercapnia: Status: Resolved Assessment and plan: He was more hypercarbic on admission, CO2 down from 101 to 79 after BiPAP overnight, acutally improved to 69 on HFNC, which is better than he has been in the past year. Continue HFNC during day, BiPAP prn and at night. Unfortunately it's not clear he can get much better. Palliative care is engaged with helping plan. (2) COPD exacerbation: Status: Resolved Assessment and plan: Transitioned 04/04 to po steroids. No new pneumonia, but because he was improving on pip/tazo and doxy, and due to h/o pseudomonas, resumed both antibiotics on readmission. 04/05 is 7 days of total antibiotic therapy, can stop antibiotics after today's doses. Cound consider chronic azithromycin Continue home inhalers, Symbicort should be 2 puffs. Respiratory support as above. (3) Heart failure with preserved ejection fraction: Status: Acute Assessment and plan: BNaP up but he did not appear to be fluid overloaded on admission after 80mg furosemide in ED. Given 40mg IV 04/03, will increase daily oral dose to 80mg po 04/04. 03/26 appears a little wet, given another PM dose of furosemide, 40mg IV (4) End stage COPD: Status: Chronic Assessment and plan: see above. He isn't far from his baseline but has very severe disease. Following with palliative. He isn't clearly ready for [employer]/hospice, but is asking for supportive care environment. CM working on placement options (5) Paroxysmal atrial fibrillation: Status: Chronic Assessment and plan: Not anticoagulated per patient preference. Rate hard to control with respirotory disease and inhalers, in 90s at rest. He is on amiodarone and diltizem, continue. (6) Hypokalemia: Status: Resolved Assessment and plan: with furosemide. Supplementing daily orally, follow (7) DVT prophylaxis: Status: Acute Assessment and plan: LMWH Subjective Subjective Patient reports: no new complaints, tolerating a regular diet, voiding w/o difficulty and shortness of breath; denies diarrhea, vomiting or fever Interval history since last seen: Still doesn't feel great, but states not that bad. He is still motivated to go somewhere where he can get help with his ja. Exam Narrative Exam Narrative: General: Patient sitting up on HFNC, conversant though difficult to understand, alert and oriented. short sentences with moderate dyspnea with speech. Lungs: Improved but still diminished jaxon breath sounds, some prolonged expiratory phase, no wheeze. Basilar rales more on right. Heart: Tachycardic rate with regular rhythm. No appreciable murmur or gallop. Abdomen: Soft and nontender to palpation Extremities: Without clubbing, cyanosis or pitting edema. Good cap refill. Objective Last Vital Signs Temp 36.4 C L 04/05/24 11:24 Pulse 101 H 04/05/24 11:41 Resp 24 04/05/24 11:41 BP 142/96 H 04/05/24 11:24 Pulse Ox 92 04/05/24 11:41 Laboratory Results - last 24 hr 04/05/24 05:30 WBC 20.23 H RBC 4.97 Hgb 13.9 Hct 47.2 MCV 95 MCH 28.0 MCHC 29.4 L RDW 13.8 Plt Count 218 MPV 10.5 Immature Gran % 0.0 Neutrophils % 86.0 Band Neutrophils % 2 Lymphocytes % 3.0 Monocytes % 6.0 Eosinophils % 0.0 Basophils % 0.0 Metamyelocytes % 2 Myelocytes % 1 Nucleated RBC % 0.0 Absolute Neutrophils 17.80 H Absolute Lymphocytes 0.61 L Absolute Monocytes 1.21 H Absolute Eosinophils 0.00 Absolute Basophils 0.00 RBC Morphology Normal Sodium 139 Potassium 3.3 L Chloride 95 L Carbon Dioxide 42.8 H Anion Gap 1.2 L BUN 34 H Creatinine 1.0 Est GFR (CKD-EPI 2020) 81.98 Glucose 170 H Calcium 8.7 Total Bilirubin 0.32 AST 26 ALT 141 H Alkaline Phosphatase 86 Total Protein 5.8 L Albumin 2.7 L Time Spent with Patient Time Spent with Patient: 35-49 minutes Time was spent: preparing to see the patient(eg.review tests), obtaining and/or reviewing separately otained hiistory, ordering medications,tests, procedures, referring, communicating with other health care information associate, indepentently interpreting results, counseling the patient and care coordination
[2024-04-05] MEDS: Furosemide 40 MG/4 ML VIAL IVP (15:12)
[2024-04-05] MEDS: POTASSIUM CHLORIDE 20 MEQ/100 ML BAG 50 MEQ IVINF ×2 (15:22→17:38)
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
--- NOTE | 2024-04-05 18:02 | PDOC.CMPRO ---
Date of service: 04/05/24 Time of Service: 18:02 Care Management Progress Note Progress Note Text Progress Note Text: Dave was sitting up in his bed when CM met with him. He was on high flow nasal canula, which helps with his ability to speak and to be understood. He stated that he felt that he left [facility] too soon on his previous admission, and that he left without O2, which contributed to him returning so soon. CM asked about the option of Dave going to [place], and he stated that he wants to go home, and that he intends to make this plan, with a resumption of HH services. He met with Palliative care also, and reiterated this message. Once he is ready for discharge, he will return home with a resumption of HH services. CM will continue to follow. Discharge Potential Discharge Needs: PCP F/U Appt Anticipated Barriers to Discharge: None Identified Patient/Family Education Needs: Review discharge instructions, discuss Ask Me Three Transportation: [facility] RCT Transportation: Private vechicle Plan: Anticipate that Dave will be transferred to SNF vs returning home with resumption of his C caregivers, and HH RN. He will f/u with his PCP, and continue with Palliative Care. Dave will continue his discharge plan of care. Transportation will be dependent upon disposition, likely RCT private vehicle. He will need an O2 tank to return home with. CM will continue to follow. SDOH(Care Management) Screening Will the Patient Participate in the Screening?: Yes Do you worry about having a steady place to live?: no Problems where you live: no known problems In the past 12 months, have you had to go without electric, gas, oil or water in your home?: no Have you or anyone in your house had to go without enough food to eat?: no Has lack of transportation kept you from medical appointments or from doing things needed for daily living?: no Has anyone in your support network made you feel unsafe for any reason?: no Health Related Social Needs Health related social needs: problem related to primary support group(Z63.9) (does not have anyone in his [place] that can be his caregiver.)
[2024-04-05] MEDS: Enoxaparin 40 MG/0.4 ML SYR SC (20:55)
[2024-04-06] VITALS (15 sets, daily range): BP systolic 113; BP diastolic 73; PULSE 68–101; RESP 3–22; TEMP 31–36.4; O2SAT 92–98
[2024-04-06] MEDS: Levalbuterol 1.25 MG/3 ML UPD VIAL UPD ×3 (05:10→13:54)
[2024-04-06] MEDS: PIPERACILLIN/TAZO 4.5 GM in Normal Saline 100 ML IVPB ×2 (06:05→11:52)
[2024-04-06 06:19] LABS: Anion Gap 0.6 mmol/L (3-11); BUN 40 mg/dL (7-18); CO2 42.4 mmol/L (21.0-32.0); Calcium 8.3 mg/dL (8.5-10.1); Chloride 97 mmol/L (98-107); Estimated GFR 81.98 (mL/min/1.73m2); Glucose 123 mg/dL (74-106); Potassium 3.8 mmol/L (3.5-5.1); Sodium 140 mmol/L (136-145)
[2024-04-06] MEDS: Budesonide/Formoterol 80/4.5 6.9 GM 60 PUFF INH IH (08:22)
[2024-04-06] MEDS: Tiotropium Bromide-Respimat 10 PUFF INH 2 PUFF IH (08:22)
[2024-04-06] MEDS: Ipratropium 0.5 MG/2.5 ML UPD VIAL IH (08:23)
[2024-04-06] MEDS: Roflumilast 500 MCG TAB PO (08:35)
[2024-04-06] MEDS: dilTIAZem CD 120 MG CAPCR 240 MG PO (08:35)
[2024-04-06] MEDS: guaiFENesin 600 MG TABCR PO (08:35)
[2024-04-06] MEDS: predniSONE 20 MG TAB 40 MG PO (08:35)
[2024-04-06] MEDS: Aspirin E.C. 81 MG TABEC PO (08:36)
[2024-04-06] MEDS: Potassium Chloride 20 MEQ TABCR PO (08:36)
[2024-04-06] MEDS: Amiodarone 200 MG TAB 100 MG PO (08:36)
[2024-04-06] MEDS: Pantoprazole 40 MG TABCR PO (08:36)
[2024-04-06] MEDS: Furosemide 40 MG TAB 80 MG PO (08:36)
[2024-04-06 09:22] LABS: Abs Immature Grans 1.35 10^3/uL (0.0-0.06); MCH 27.5 pg (27.0-33.0); MCHC 29.2 % (32.0-36.0); MCV 94 fL (80-95); MPV 10.6 fL (8.0-11.0); Platelet Count 182 10^3/uL (130-400); RDW 13.9 % (11.8-14.1); RDW-SD 48.2 fL; WBC 20.16 10^3/uL (4.4-10.8)
[2024-04-06 09:59] LABS: Absolute Lymphocyte Count 1.41 10^3/uL (1.2-3.4); Absolute Monocyte Count 1.01 10^3/uL (0.1-0.8); Absolute Neutrophil Count 17.54 10^3/uL (1.2-6.7); Diff Comment Manual Differential; Metamyelocytes % 1; Myelocytes % 2; RBC Morphology Normal
[2024-04-06] MEDS: Normal Saline Flush 10 ML SYR IVP (10:02)
[2024-04-06] MEDS: DOXYCYCLINE 100 MG in Normal Saline 100 ML IVPB (10:02)
--- NOTE | 2024-04-06 11:41 | RESPIRATORY ---
04/06/2024 This RT walked patient with RN. Pt maintained above 85% SaO2 while walking with frequent breaks on 4-6L NC and recovered quickly to 94% SaO2 on 4L once sitting and recovering.
[2024-04-06] MEDS: Clotrimazole 1% 15 GM TUBE TP (12:04)
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
--- NOTE | 2024-04-06 14:41 | CHAPLAIN ---
Dave has a history of respiratory disease. He was discharged from here on 04/01 and readmitted 04/02. He was sitting up in the chair when I visited with him this morning. He easily engaged in a conversation, but I had difficulty following everything he said. He told me about living in [place], [place], although he hasn't been back there in many years. He also talked about going to Jew school at some point. He later asked if I had a small cross he could have. I brought him a small wooden cross and rosary beads. Dave said he doesn't go to jain any more, but he's still Jew. Two days ago he agreed to go to [facility], a residential placement, when he is discharged, but yesterday he changed his mind and told his Machine Deburrer that he wants to go home instead.
--- NOTE | 2024-04-06 14:47 | CMDISCH_ITS ---
Date of service: 04/06/24 Time of Service: 14:49 LACE Index Scoring Tool Questions: Length of Stay (in days): 4 - 6 Was the patient admitted via the E.D.?: Yes Comorbidities: Previous M.I., Cerebrovascular Disease, Chronic Pulmonary Disease and Any Tumor E.D. Visits: 2 Answers: Total Score: 14 Risk of Readmission: High Risk Care Management Discharge Plan Reason for Hospitalization: chronic respiratory failure Discharge Plan: Dave is discharged home with resumption of his HH RN and his [facility] caregivers. He will continue on his Trilogy and home O2. He will f/u with his PCP and continue per the prescribed plan of care. He will transport via [facility] private vehicle. His room mate has assured CM that someone will be available to help Dave into the house with his O2 and belongings. SDOH Health Related Social Needs: Health related social needs personal safety Health related social needs details pt has some concer ns with housing but I am unable to understand his issues at this time. Health related social needs: problem related to primary support group(Z63.9) (does not have anyone in his [place] that can be his caregiver.)
== END 2024-04-06 15:31 | disposition home or self-care (01) | DRG 193 ==
LOC: ER 18:44 → ICU 18:45 → MS 04-05 11:20
PROVIDERS: Internal Medicine; Admitting Provider Family Medicine; Emergency Provider Emergency Medicine; PCP Student in an Organized Health Care Education/Training Program; Visit Provider Family Medicine
DX: J18.9 Pneumonia, unspecified organism; J96.21 Acute and chronic respiratory failure with hypoxia; J96.22 Acute and chronic respiratory failure with hypercapnia; J44.0 Chronic obstructive pulmonary disease with (acute) lower respiratory infection; I47.10 Supraventricular tachycardia, unspecified; I50.30 Unspecified diastolic (congestive) heart failure; J44.1 Chronic obstructive pulmonary disease with (acute) exacerbation; I48.0 Paroxysmal atrial fibrillation; Z99.81 Dependence on supplemental oxygen; I27.29 Other secondary pulmonary hypertension; Z79.899 Other long term (current) drug therapy; D50.9 Iron deficiency anemia, unspecified; Z87.891 Personal history of nicotine dependence; R73.03 Prediabetes; R91.1 Solitary pulmonary nodule; I11.0 Hypertensive heart disease with heart failure; F22 Delusional disorders; Z87.820 Personal history of traumatic brain injury; K21.9 Gastro-esophageal reflux disease without esophagitis; G31.84 Mild cognitive impairment of uncertain or unknown etiology; I50.812 Chronic right heart failure; E78.2 Mixed hyperlipidemia; Z63.8 Other specified problems related to primary support group
CPT/HCPCS: 00123; 36415; 80048; 80053; 82805; 87637; 93005; 94640; 96374; 96375; 99291; J1650; 71045; 83735; 83880; 84484; 85025; 85610; 85730; 93010; 94660; 94664; 94760; 99223; 99232; 99233; 99239; J1940; J2470; J2543; J2919; J3480; J7512; J7614; J7620; J7644

== ENCOUNTER → 2024-06-28 10:26 | Outpatient (BNVA) | payer MEDICARE, MEDICAID, SELFPAY | PROVIDERS: PCP Student in an Organized Health Care Education/Training Program; Referring Provider Student in an Organized Health Care Education/Training Program; Visit Provider Physician Assistant Surgical | DX: J44.9 Chronic obstructive pulmonary disease, unspecified (principal); J96.11 Chronic respiratory failure with hypoxia; R91.1 Solitary pulmonary nodule; Z87.891 Personal history of nicotine dependence | CPT/HCPCS: 99214 ==

== ENCOUNTER 2024-10-12 16:12 | Outpatient (REF) | payer MEDICARE, MEDICAID, SELFPAY ==
[2024-10-12 10:08] LABS: HCT 45.4 % (40.0-50.0); HGB 13.5 g/dL (13.5-17.5)
[2024-10-12 10:19] LABS: Iron 39 ug/dL (65-175); Total Iron Binding Capacity 256 ug/dL (250-450); Transferrin Sat 15 % (20-55)
[2024-10-12 10:46] LABS: ALT 25 U/L (16-63); AST 10 U/L (15-37); Albumin 3.9 g/dL (3.4-5.0); Alkaline Phosphatase 154 U/L (46-116); Anion Gap 7.8 mmol/L (3-11); BUN 20 mg/dL (7-18); Bilirubin, Total 0.3 mg/dL (0.2-1.0); CO2 37.2 mmol/L (21.0-32.0); CREATININE 0.7 mg/dL (0.70-1.30); Calcium 9.7 mg/dL (8.5-10.1); Chloride 104 mmol/L (98-107); Cholesterol 260 mg/dL (<200); Estimated GFR 100.37 (mL/min/1.73m2); Ferritin 250 ng/mL (26-388); Folate 11.1 ng/mL (8.6-20.0); Glucose 93 mg/dL (74-106); HDL Cholesterol 51 mg/dL (>or=40); Magnesium 1.8 mg/dL; Sodium 149 mmol/L (136-145); Total Protein 6.8 g/dL (6.4-8.2); Triglyceride 406 mg/dL (<150); Vitamin B12 356 pg/mL (193-986)
[2024-10-12 10:52] LABS: Hemoglobin A1C 5.9 % (<5.7)
[2024-10-12 10:58] LABS: LDL CHOLESTEROL 141 mg/dL (<100)
== END 2024-10-12 16:13 | disposition home or self-care (01) ==
LOC: LBN 16:12
PROVIDERS: PCP Nurse Practitioner Adult Health; Visit Provider Nurse Practitioner Adult Health
DX: R79.89 Other specified abnormal findings of blood chemistry; D50.9 Iron deficiency anemia, unspecified; Z79.899 Other long term (current) drug therapy
CPT/HCPCS: 80053; 80061; 83721; 82607; 82728; 82746; 83036; 83540; 83550; 83735; 84443; 85014; 85018

== ENCOUNTER 2024-10-27 12:04 | Emergency (ER) | payer MEDICARE, MEDICAID, SELFPAY ==
[2024-10-27] VITALS (44 sets, daily range): BP systolic 119–159; BP diastolic 55–75; PULSE 70–94; RESP 14–24; TEMP 36.1; O2SAT 4–99
--- NOTE | 2024-10-27 12:00 | RT.EKG_ITS ---
APPROVED REPORT Exam: Resting ECG Reason for Exam: SOB Patient Location: E HR:79 bpm ECG Measurements Heart Rate 79 AXIS MS 146 P 75 QRSd 90 QRS 74 QT 396 T 48 QTc 453 Conclusion Sinus rhythm, rate 79 No interval abnormalities No STEMI Compared to priors, rate has decreased, no other significant changes
[2024-10-27] MEDS: ACETAMINOPHEN 1,000 MG/100 ML BAG 400 MG IVPB (12:44)
[2024-10-27] MEDS: Ondansetron 4 MG/2 ML VIAL IVP (12:44)
[2024-10-27] MEDS: Albuterol/Ipratropium 3 ML UPD VIAL UPD ×2 (12:44→15:28)
[2024-10-27 12:45] LABS: Abs Immature Grans 0.14 10^3/uL (0.0-0.06); Absolute Basophil Count 0.08 10^3/uL (0.0-0.2); Absolute Eosinophil Count 0.33 10^3/uL (0.0-0.7); Absolute Lymphocyte Count 1.67 10^3/uL (1.2-3.4); Absolute Monocyte Count 0.81 10^3/uL (0.1-0.8); Absolute Neutrophil Count 9.04 10^3/uL (1.2-6.7); Basophils % 0.7 %; Eosinophils % 2.7 %; HCT 41.9 % (40.0-50.0); HGB 12.3 g/dL (13.5-17.5); Immature Grans % 1.2 %; Lymphocytes % 13.8 %; MCH 26.3 pg (27.0-33.0); MCHC 29.4 % (32.0-36.0); MCV 90 fL (80-95); MPV 8.9 fL (8.0-11.0); Monocytes % 6.7 %; Neutrophils % 74.9 %; Platelet Count 234 10^3/uL (130-400); RBC 4.68 10^6/uL (4.36-5.78); RDW 15.8 % (11.8-14.1); RDW-SD 51.5 fL; WBC 12.07 10^3/uL (4.4-10.8)
--- NOTE | 2024-10-27 12:45 | DI.CT_ITS ---
Exam(s) CT ABDOMEN PELVIS W EXAM: CT ABDOMEN PELVIS W CLINICAL HISTORY: RUQ post-prandial pain, gallstones on US. TECHNIQUE: Imaging Protocol: Axial computed tomography images with coronal and sagittal reformatted images were created and reviewed CONTRAST MATERIAL: Intravenous: Omnipaque-350 100cc Oral: None COMPARISON: CT CT THORAX ABD/PEL CTA from 11/25/[address] CHEST PE CTA from 02/28/[address] CHEST PE CTA from 08/16/2023 FINDINGS: VISUALIZED LUNG BASES: There is some persistent infiltrate in the right lower lobe which has slightly increased from 02/28/2023. Similar appearance to CT scan of 08/16/2023 no pleural effusions. Thin walled bulla in the lateral aspect of the right lower lobe is unchanged.. ABDOMEN: There is no ascites. LIVER: There are no focal hepatic lesions evident. No dilated intrahepatic ducts. GALLBLADDER/BILIARY: There are all calcified gallstones noted in the gallbladder lumen. There is bill e enhancement of the gallbladder wall but without gallbladder wall edema nor pericholecystic fluid an d the CBD is not dilated. PANCREAS: No evidence of pancreatic mass nor dilatation of the pancreatic duct. SPLEEN: Spleen size is upper normal and there are again noted multiple concerning appearing non cysti c peripherally enhancing lesions in the spleen which appear relatively stable in size and number when compared to the lower most images of the previous non equal technique chest CT scans of 02/28/2023 a nd 08/16/2023 . these lesions are not cysts and exhibit peripheral and some internal enhancement. Th ey are all of similar appearance indicating similar pathology. Splenic and portal veins are patent. ADRENALS: There are no significant adrenal masses. KIDNEYS:No cysts evident. No solid renal masses. No calculi nor hydronephrosis.. ABDOMINAL AORTA: Moderately atherosclerotic but no aneurysms. Common iliac arteries are also atheros clerotic but nonaneurysmal. LYMPH NODES:There is no retroperitoneal nor paraaortic adenopathy. ABDOMINAL WALL: There are inguinal hernias, right larger than left which contain fat and no bowel loo ps. GI: There is no evidence of bowel obstruction, free air, nor abscess. PELVIS: GI: No evidence of appendicitis.No evidence of sigmoid diverticulitis. LYMPH NODES: There is no intrapelvic nor inguinal adenopathy. REPRODUCTIVE: Prostate is moderately enlarged and mildly lobulated. Transverse measurement of the pr ostate is 5.3 cm. URINARY BLADDER: There is relatively uniform thickening of the urinary bladder wall. No radiopaque c alculi seen in the bladder. The pelvic ureters are not dilated. OSSEOUS: No fractures and no significant osseous lesions. Mild indentation of the superior endplate of L2 noted. No acute fracture. Bone lesion in the centra l-right side of T11 vertebral body and extension into the right pedicle is again noted. No pathologi c fracture evident at this level. No new a dish in all lytic bone lesions identified. IMPRESSION: 1. Cholelithiasis. The there calcified gallstones. There is also uniform enhancement of the gallbla dder wall but no pericholecystic fluid nor true gallbladder wall stripe sign. There are no radiopaqu e calculi seen in the nondilated CBD. Pancreas unremarkable. 2. Persistent multiple lesions in the spleen which continue to appear relatively stable from prior re cent exams but are not simple cysts. May represent hemangiomas but cannot exclude more ominous neopl astic pathology. 3. Continued stable appearance of lytic bone lesion in the right-side of the T11 vertebral body and p edicle. No new additional bone lesions evident. Findings discussed with ER physician 10/27/2024 at 2:45 p.m. RADIATION DOSE DELIVERED: 554.42mGy.cm Total DLP DATA REPOSITORY: All CT scans at this facility are submitted to the National Radiology Data Registry (NRDR) Dose Index Registry (DIR) with the [employer] ([employer]). RADIATION OPTIMIZATION: All CT scans at this facility use at least one of these dose optimization te chniques: automated exposure control; mA and/or kV adjustment per patient size (includes targeted exa ms where dose is matched to clinical indication); or iterative reconstruction.
[2024-10-27 13:03] LABS: ALT 27 U/L (16-63); AST 11 U/L (15-37); Albumin 3.6 g/dL (3.4-5.0); Alkaline Phosphatase 125 U/L (46-116); Anion Gap 2.5 mmol/L (3-11); BUN 24 mg/dL (7-18); Bilirubin, Total 0.2 mg/dL (0.2-1.0); CO2 38.5 mmol/L (21.0-32.0); CREATININE 0.7 mg/dL (0.70-1.30); Chloride 104 mmol/L (98-107); Estimated GFR 100.37 (mL/min/1.73m2); Glucose 133 mg/dL (74-106); Lipase 25 U/L (<78); Magnesium 1.8 mg/dL (1.8-2.4); Potassium 3.8 mmol/L (3.5-5.1); Sodium 145 mmol/L (136-145); Total Protein 6.7 g/dL (6.4-8.2); Troponin I 8 ng/L (<or=76)
--- NOTE | 2024-10-27 13:12 | ED.GENADUL_ITS ---
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 Social History Smoking/Tobacco Use Status: Former Tobacco Use Quit Date: 11/04/12 Pack-years: 135 Tobacco: How many years used: 40 Second Hand Exposure: No Smoking risk assessment performed?: Yes Alcohol Intake: former Year quit: 2008 Drug use: Never Substance use type: does not use Adopted: No Caregiver/Support person: Yes Foster care: No Household members: friend(s) Housing: apartment Number of Children: 4 Communication Needs: Hard of Hearing and Corrective Lenses Education Level: middle school Do you need help understanding health information?: Always current occupation: disabled Pets and animals: No Do you think of yourself as: straight/heterosexual Current gender identity: male What is your relationship status?: How often do you talk on the phone with friends or family?: never How often do you get together with friends or relatives?: never Panel score (0-1 are the most socially isolated patients): 0 What type of physical activity do you participate in: assisted ambulation and sedentary lifestyle Duration: < 15 minutes/day Frequency: daily Special johann needs: No Seatbelt use: sometimes Water heater temp set <120 deg: Yes Working smoke detector in home: Yes Fire extinguisher in home: Yes Carbon monox detector in home: Yes Firearms in home: No Do you feel safe at home: Yes Do you feel safe in your relationship?: Yes POCUS Exam (ED) Limited Gallbladder Exam DATE OF EXAM: 10/27/24 IS THIS A REPEAT EXAM DURING THIS ENCOUNTER: No REASON FOR VISIT: Positive Elliott's sign and RUQ pain VISUALIZED STRUCTURES: Gallbladder, Gallbladder wall and Liver PERTINENT FINDINGS/IMPRESSION: Gallstones and Thickened gallbladder wall; No dilatation of the common bile duct and No Pericholecystic fluid Exam complete
[2024-10-27] MEDS: Omnipaque 350 MG/ML 500 ML BTL-Imaging package IJ (14:02)
[2024-10-27] MEDS: Normal Saline - Diluent 50 ML VIAL IJ (14:09)
[2024-10-27 14:11] LABS: Troponin I 8 ng/L (<or=76)
--- NOTE | 2024-10-31 06:59 | NUR.NOTE ---
Access chart to reconcile EKG orders with EKG's in [facility]. One not read in [facility] and one order. Nursing Note:
== END 2024-10-27 16:20 | disposition home or self-care (01) ==
PROVIDERS: Emergency Provider Emergency Medicine; PCP Nurse Practitioner Adult Health
DX: R07.81 Pleurodynia (principal); R06.02 Shortness of breath; K80.20 Calculus of gallbladder without cholecystitis without obstruction; I48.91 Unspecified atrial fibrillation; J44.9 Chronic obstructive pulmonary disease, unspecified; Z86.73 Personal history of transient ischemic attack (TIA), and cerebral infarction without residual deficits
CPT/HCPCS: 76705; 80053; 83690; 93005; 94640; 96374; 96375; 99285; 74177; 83735; 84484; 85025; 93010; 99284; J0131; J2405; J7620

== ENCOUNTER 2025-03-01 15:32 | Outpatient (REF) | payer MEDICARE, MEDICAID, SELFPAY ==
[2025-03-01 10:34] LABS: HCT 41.1 % (40.0-50.0); HGB 12.3 g/dL (13.5-17.5); MCH 26.7 pg (27.0-33.0); MCHC 29.9 % (32.0-36.0); MCV 89 fL (80-95); MPV 10.1 fL (8.0-11.0); Platelet Count 248 10^3/uL (130-400); RBC 4.60 10^6/uL (4.36-5.78); RDW 14.6 % (11.8-14.1); RDW-SD 48.0 fL; WBC 13.56 10^3/uL (4.4-10.8)
[2025-03-01 11:06] LABS: Iron 37 ug/dL (65-175); Total Iron Binding Capacity 290 ug/dL (250-450); Transferrin Sat 13 % (20-55)
[2025-03-01 11:20] LABS: ALT 30 U/L (16-63); AST 12 U/L (15-37); Albumin 3.8 g/dL (3.4-5.0); Alkaline Phosphatase 159 U/L (46-116); Anion Gap 4.5 mmol/L (3-11); BUN 25 mg/dL (7-18); Bilirubin, Total 0.4 mg/dL (0.2-1.0); CO2 37.5 mmol/L (21.0-32.0); Calcium 8.9 mg/dL (8.5-10.1); Chloride 101 mmol/L (98-107); Estimated GFR 100.37 (mL/min/1.73m2); Ferritin 184 ng/mL (26-388); Glucose 104 mg/dL (74-106); Potassium 4.5 mmol/L (3.5-5.1); Sodium 143 mmol/L (136-145); Total Protein 6.6 g/dL (6.4-8.2)
[2025-03-01 15:22] LABS: Lipase 22 U/L (<78)
[2025-03-01 16:19] LABS: Lab Add On Test DONE
[2025-03-01 16:33] LABS: GGT 29 U/L (15-85)
== END 2025-03-01 15:33 | disposition home or self-care (01) ==
LOC: LBN 15:32
PROVIDERS: PCP Nurse Practitioner Adult Health; Visit Provider Nurse Practitioner Adult Health
DX: D50.9 Iron deficiency anemia, unspecified (principal); J44.9 Chronic obstructive pulmonary disease, unspecified; K80.20 Calculus of gallbladder without cholecystitis without obstruction; R74.8 Abnormal levels of other serum enzymes
CPT/HCPCS: 80053; 83690; 85027; 82728; 82977; 83540; 83550

== ENCOUNTER → 2025-04-18 14:47 | Outpatient (BNVA) | payer MEDICARE, MEDICAID, SELFPAY | PROVIDERS: PCP Nurse Practitioner Adult Health; Referring Provider Nurse Practitioner Adult Health; Visit Provider Registered Nurse | DX: I48.0 Paroxysmal atrial fibrillation (principal); J44.9 Chronic obstructive pulmonary disease, unspecified | CPT/HCPCS: 99214 ==